=== PATIENT | male | born 1940 | race Caucasian/White ===

== ENCOUNTER 2018-06-06 07:29 | Outpatient (CLI) | payer MEDICARE, BC, SELFPAY ==
[2018-06-06 07:56] LABS: Abs Immature Grans 0.02 k/cumm (0.0-0.09); Absolute Basophil Count 0.02 k/cumm (0.0-0.2); Absolute Eosinophil Count 0.46 k/cumm (0.0-0.7); Absolute Lymphocyte Count 0.69 k/cumm (1.2-3.4); Absolute Monocyte Count 0.57 k/cumm (0.11-0.7); Basophils % 0.3; Eosinophils % 7.8; HCT 41.8 % (40.0-50.0); HGB 13.9 g/dL (13.5-17.5); Immature Grans % 0.3; Lymphocytes % 11.8; Mean Corp. HGB Concentration 33.3 g/dL (32.0-36.0); Mean Corpuscular Hemoglobin 30.6 pg (27.0-33.0); Mean Corpuscular Volume 92.1 fL (80-95); Mean Platelet Volume 10.3 fL (8.0-11.0); Monocytes % 9.7; Neutrophils % 70.1; Platelet Count 196 x1000/uL (130-400); RBC 4.54 m/cumm (4.50-6.00); RBC Distribution Width 13.5 % (11.8-14.1); White Blood Cell Count 5.86 k/cumm (4.4-10.8)
[2018-06-06 08:10] LABS: ALT 22 U/L (12-78); AST 19 U/L (15-37); Albumin 3.5 g/dL (3.4-5.0); Alkaline Phosphatase 120 U/L (46-116); Anion Gap 7.2 mmol/L (3-11); BUN 23 mg/dL (7-18); Bilirubin, Total 0.5 mg/dL (0.2-1.0); CO2 28.8 mmol/L (21.0-32.0); CREATININE 1.47 mg/dL (0.70-1.30); Calcium 8.7 mg/dL (8.5-10.1); Chloride 104 mmol/L (98-107); Glucose 99 mg/dL (70-100); Potassium 4.9 mmol/L (3.5-5.1); Sodium 140 mmol/L (136-145); T4 8.1 ug/dL (4.5-12.5); TSH 7.15 uIU/mL (0.358-3.74)
== END 2018-06-06 07:30 ==
PROVIDERS: Visit Provider Internal Medicine Medical Oncology
DX: C34.11 Malignant neoplasm of upper lobe, right bronchus or lung (principal); E03.2 Hypothyroidism due to medicaments and other exogenous substances
CPT/HCPCS: 36415; 80053; 84436; 84443; 85025

== ENCOUNTER 2018-06-20 08:00 | Outpatient (CLI) | payer MEDICARE, BC, SELFPAY ==
[2018-06-20 08:32] LABS: Abs Immature Grans 0.02 k/cumm (0.0-0.09); Absolute Basophil Count 0.02 k/cumm (0.0-0.2); Absolute Eosinophil Count 0.47 k/cumm (0.0-0.7); Absolute Lymphocyte Count 0.54 k/cumm (1.2-3.4); Absolute Monocyte Count 0.55 k/cumm (0.11-0.7); Absolute Neutrophil Count 4.02 k/cumm (1.2-6.7); Basophils % 0.4; Eosinophils % 8.4; HCT 40.1 % (40.0-50.0); HGB 13.2 g/dL (13.5-17.5); Immature Grans % 0.4; Lymphocytes % 9.6; Mean Corp. HGB Concentration 32.9 g/dL (32.0-36.0); Mean Corpuscular Hemoglobin 30.3 pg (27.0-33.0); Mean Corpuscular Volume 92.2 fL (80-95); Mean Platelet Volume 9.7 fL (8.0-11.0); Monocytes % 9.8; Neutrophils % 71.4; Platelet Count 184 x1000/uL (130-400); RBC 4.35 m/cumm (4.50-6.00); RBC Distribution Width 13.2 % (11.8-14.1); White Blood Cell Count 5.62 k/cumm (4.4-10.8)
[2018-06-20 08:52] LABS: ALT 20 U/L (12-78); AST 16 U/L (15-37); Albumin 3.3 g/dL (3.4-5.0); Alkaline Phosphatase 117 U/L (46-116); Anion Gap 8.5 mmol/L (3-11); BUN 26 mg/dL (7-18); Bilirubin, Total 0.6 mg/dL (0.2-1.0); CO2 27.5 mmol/L (21.0-32.0); CREATININE 1.34 mg/dL (0.70-1.30); Calcium 8.5 mg/dL (8.5-10.1); Chloride 106 mmol/L (98-107); Estimated GFR 51.97 (mL/min/1.73m2); Glucose 93 mg/dL (70-100); Potassium 4.2 mmol/L (3.5-5.1); Sodium 142 mmol/L (136-145); T4 8.5 ug/dL (4.5-12.5); TSH 4.09 uIU/mL (0.358-3.74); Total Protein 6.8 g/dL (6.4-8.2)
== END 2018-06-20 08:01 ==
PROVIDERS: Visit Provider Internal Medicine Medical Oncology
DX: C34.11 Malignant neoplasm of upper lobe, right bronchus or lung (principal); E03.2 Hypothyroidism due to medicaments and other exogenous substances
CPT/HCPCS: 36415; 80053; 84436; 84443; 85025

== ENCOUNTER 2018-07-05 07:29 | Outpatient (CLI) | payer MEDICARE, BC, SELFPAY ==
[2018-07-05 08:07] LABS: Abs Immature Grans 0.02 k/cumm (0.0-0.09); Absolute Basophil Count 0.03 k/cumm (0.0-0.2); Absolute Lymphocyte Count 0.55 k/cumm (1.2-3.4); Absolute Neutrophil Count 4.51 k/cumm (1.2-6.7); Basophils % 0.5; Eosinophils % 8.2; HGB 12.5 g/dL (13.5-17.5); Immature Grans % 0.3; Mean Corp. HGB Concentration 32.9 g/dL (32.0-36.0); Mean Corpuscular Volume 91.1 fL (80-95); Mean Platelet Volume 10.1 fL (8.0-11.0); Monocytes % 8.2; Neutrophils % 73.8; Platelet Count 236 x1000/uL (130-400); RBC 4.17 m/cumm (4.50-6.00); RBC Distribution Width 12.6 % (11.8-14.1); White Blood Cell Count 6.11 k/cumm (4.4-10.8)
[2018-07-05 08:29] LABS: ALT 19 U/L (12-78); AST 16 U/L (15-37); Alkaline Phosphatase 106 U/L (46-116); Anion Gap 8.3 mmol/L (3-11); BUN 23 mg/dL (7-18); Bilirubin, Total 0.6 mg/dL (0.2-1.0); CO2 27.7 mmol/L (21.0-32.0); CREATININE 1.39 mg/dL (0.70-1.30); Calcium 8.6 mg/dL (8.5-10.1); Chloride 102 mmol/L (98-107); Estimated GFR 49.68 (mL/min/1.73m2); Glucose 99 mg/dL (70-100); Sodium 138 mmol/L (136-145); T4 8.2 ug/dL (4.5-12.5); TSH 3.72 uIU/mL (0.358-3.74); Total Protein 6.4 g/dL (6.4-8.2)
== END 2018-07-05 07:49 ==
PROVIDERS: Visit Provider Internal Medicine Medical Oncology
DX: C34.11 Malignant neoplasm of upper lobe, right bronchus or lung (principal); E03.2 Hypothyroidism due to medicaments and other exogenous substances
CPT/HCPCS: 36415; 80053; 84436; 84443; 85025

== ENCOUNTER 2019-03-02 12:33 | Outpatient (CLI) | payer MEDICARE, BC, SELFPAY ==
[2019-03-02 12:53] LABS: Abs Immature Grans 0.02 k/cumm (0.0-0.09); Absolute Eosinophil Count 0.01 k/cumm (0.0-0.7); Absolute Lymphocyte Count 0.29 k/cumm (1.2-3.4); Absolute Monocyte Count 0.18 k/cumm (0.11-0.7); Eosinophils % 0.2; HCT 41.2 % (40.0-50.0); HGB 13.2 g/dL (13.5-17.5); Immature Grans % 0.3; Lymphocytes % 4.6; Mean Corpuscular Hemoglobin 29.9 pg (27.0-33.0); Mean Corpuscular Volume 93.4 fL (80-95); Mean Platelet Volume 9.2 fL (8.0-11.0); Monocytes % 2.9; Platelet Count 187 x1000/uL (130-400); RBC 4.41 m/cumm (4.50-6.00); RBC Distribution Width 14.5 % (11.8-14.1)
[2019-03-02 13:21] LABS: ALT 18 U/L (12-78); AST 9 U/L (15-37); Albumin 3.2 g/dL (3.4-5.0); Alkaline Phosphatase 82 U/L (46-116); Anion Gap 4.5 mmol/L (3-11); BUN 18 mg/dL (7-18); Bilirubin, Total 0.5 mg/dL (0.2-1.0); CO2 32.5 mmol/L (21.0-32.0); CREATININE 1.28 mg/dL (0.70-1.30); Calcium 8.8 mg/dL (8.5-10.1); Chloride 104 mmol/L (98-107); Estimated GFR 54.64 (mL/min/1.73m2); Glucose 119 mg/dL (70-100); Potassium 3.7 mmol/L (3.5-5.1); Sodium 141 mmol/L (136-145); TSH 1.92 uIU/mL (0.358-3.74); Total Protein 6.3 g/dL (6.4-8.2)
== END 2019-03-02 12:53 ==
PROVIDERS: Visit Provider Internal Medicine Hematology & Oncology
DX: C34.11 Malignant neoplasm of upper lobe, right bronchus or lung (principal); E03.2 Hypothyroidism due to medicaments and other exogenous substances
CPT/HCPCS: 36415; 80053; 84436; 84443; 85025

== ENCOUNTER 2019-03-15 10:20 | Outpatient (CLI) | payer MEDICARE, BC, SELFPAY ==
--- NOTE | 2019-03-15 10:17 | DI.RAD_ITS ---
SYMPTOM/DIAGNOSIS: RT SHOULDER PAIN RIGHT SHOULDER: Two views were obtained. There are prominent hypertrophic degenerative changes of acromioclavicular and glenohumeral joints. No other focal bony abnormality is seen.
== END 2019-03-15 10:40 ==
PROVIDERS: Visit Provider Orthopaedic Surgery
DX: M25.511 Pain in right shoulder (principal); M19.011 Primary osteoarthritis, right shoulder; M75.101 Unspecified rotator cuff tear or rupture of right shoulder, not specified as traumatic; G89.29 Other chronic pain
CPT/HCPCS: 20610; 99214; 73030; J1040

== ENCOUNTER 2019-03-17 13:00 | Outpatient (CLI) | payer MEDICARE, BC, SELFPAY ==
[2019-03-17 14:14] LABS: Abs Immature Grans 0.05 k/cumm (0.0-0.09); Absolute Basophil Count 0.01 k/cumm (0.0-0.2); Absolute Lymphocyte Count 0.34 k/cumm (1.2-3.4); Absolute Monocyte Count 0.41 k/cumm (0.11-0.7); Absolute Neutrophil Count 7.81 k/cumm (1.2-6.7); Basophils % 0.1; HCT 43.4 % (40.0-50.0); HGB 14.2 g/dL (13.5-17.5); Immature Grans % 0.6; Lymphocytes % 3.9; Mean Corp. HGB Concentration 32.7 g/dL (32.0-36.0); Mean Corpuscular Hemoglobin 30.4 pg (27.0-33.0); Mean Corpuscular Volume 92.9 fL (80-95); Mean Platelet Volume 9.5 fL (8.0-11.0); Monocytes % 4.8; Neutrophils % 90.6; Platelet Count 191 x1000/uL (130-400); RBC 4.67 m/cumm (4.50-6.00); White Blood Cell Count 8.62 k/cumm (4.4-10.8)
[2019-03-17 14:34] LABS: ALT 18 U/L (12-78); AST 9 U/L (15-37); Albumin 3.3 g/dL (3.4-5.0); Alkaline Phosphatase 91 U/L (46-116); BUN 28 mg/dL (7-18); Bilirubin, Total 0.6 mg/dL (0.2-1.0); CREATININE 1.35 mg/dL (0.70-1.30); Calcium 9.2 mg/dL (8.5-10.1); Chloride 100 mmol/L (98-107); Estimated GFR 51.38 (mL/min/1.73m2); Glucose 121 mg/dL (70-100); Potassium 5.1 mmol/L (3.5-5.1); Sodium 136 mmol/L (136-145); T4 7.3 ug/dL (4.5-12.5); TSH 1.46 uIU/mL (0.358-3.74); Total Protein 6.7 g/dL (6.4-8.2)
== END 2019-03-17 13:20 ==
PROVIDERS: Visit Provider Internal Medicine Hematology & Oncology
DX: C34.11 Malignant neoplasm of upper lobe, right bronchus or lung (principal); E03.9 Hypothyroidism, unspecified
CPT/HCPCS: 36415; 80053; 84436; 84443; 85025

== ENCOUNTER 2019-03-30 11:33 | Outpatient (CLI) | payer MEDICARE, BC, SELFPAY ==
[2019-03-30 12:03] LABS: Abs Immature Grans 0.03 k/cumm (0.0-0.09); Absolute Basophil Count 0.03 k/cumm (0.0-0.2); Absolute Lymphocyte Count 0.71 k/cumm (1.2-3.4); Absolute Monocyte Count 0.75 k/cumm (0.11-0.7); Absolute Neutrophil Count 5.23 k/cumm (1.2-6.7); Basophils % 0.4; Eosinophils % 1.5; HCT 41.7 % (40.0-50.0); HGB 13.5 g/dL (13.5-17.5); Immature Grans % 0.4; Lymphocytes % 10.4; Mean Corp. HGB Concentration 32.4 g/dL (32.0-36.0); Mean Corpuscular Hemoglobin 30.1 pg (27.0-33.0); Mean Corpuscular Volume 92.9 fL (80-95); Mean Platelet Volume 9.9 fL (8.0-11.0); Monocytes % 10.9; Neutrophils % 76.4; Platelet Count 188 x1000/uL (130-400); RBC 4.49 m/cumm (4.50-6.00); RBC Distribution Width 13.9 % (11.8-14.1); White Blood Cell Count 6.85 k/cumm (4.4-10.8)
[2019-03-30 12:24] LABS: ALT 17 U/L (12-78); AST 14 U/L (15-37); Alkaline Phosphatase 92 U/L (46-116); Anion Gap 3.2 mmol/L (3-11); BUN 27 mg/dL (7-18); Bilirubin, Total 0.5 mg/dL (0.2-1.0); CO2 31.8 mmol/L (21.0-32.0); CREATININE 1.26 mg/dL (0.70-1.30); Calcium 8.8 mg/dL (8.5-10.1); Chloride 104 mmol/L (98-107); Estimated GFR 55.64 (mL/min/1.73m2); Glucose 97 mg/dL (70-100); Potassium 3.8 mmol/L (3.5-5.1); Sodium 139 mmol/L (136-145); T4 6.5 ug/dL (4.5-12.5); TSH 2.38 uIU/mL (0.358-3.74); Total Protein 6.4 g/dL (6.4-8.2)
== END 2019-03-30 11:53 ==
PROVIDERS: Visit Provider Internal Medicine Hematology & Oncology
DX: C34.11 Malignant neoplasm of upper lobe, right bronchus or lung (principal); E03.2 Hypothyroidism due to medicaments and other exogenous substances
CPT/HCPCS: 36415; 80053; 84436; 84443; 85025

== ENCOUNTER 2019-04-13 09:53 | Outpatient (CLI) | payer MEDICARE, BC, SELFPAY ==
[2019-04-13 10:34] LABS: Abs Immature Grans 0.04 k/cumm (0.0-0.09); Absolute Basophil Count 0.01 k/cumm (0.0-0.2); Absolute Eosinophil Count 0.06 k/cumm (0.0-0.7); Absolute Lymphocyte Count 0.28 k/cumm (1.2-3.4); Absolute Monocyte Count 0.36 k/cumm (0.11-0.7); Absolute Neutrophil Count 6.91 k/cumm (1.2-6.7); Basophils % 0.1; Eosinophils % 0.8; HCT 40.2 % (40.0-50.0); HGB 13.1 g/dL (13.5-17.5); Immature Grans % 0.5; Lymphocytes % 3.7; Mean Corp. HGB Concentration 32.6 g/dL (32.0-36.0); Mean Corpuscular Hemoglobin 29.6 pg (27.0-33.0); Mean Platelet Volume 9.5 fL (8.0-11.0); Monocytes % 4.7; Neutrophils % 90.2; Platelet Count 210 x1000/uL (130-400); RBC 4.42 m/cumm (4.50-6.00); RBC Distribution Width 13.6 % (11.8-14.1); White Blood Cell Count 7.66 k/cumm (4.4-10.8)
[2019-04-13 11:01] LABS: ALT 22 U/L (12-78); AST 16 U/L (15-37); Albumin 3.1 g/dL (3.4-5.0); Alkaline Phosphatase 91 U/L (46-116); Anion Gap 8.1 mmol/L (3-11); BUN 25 mg/dL (7-18); Bilirubin, Total 0.5 mg/dL (0.2-1.0); CO2 27.9 mmol/L (21.0-32.0); CREATININE 1.31 mg/dL (0.70-1.30); Calcium 8.7 mg/dL (8.5-10.1); Chloride 105 mmol/L (98-107); Glucose 107 mg/dL (70-100); Sodium 141 mmol/L (136-145); T4 5.9 ug/dL (4.5-12.5); TSH 2.36 uIU/mL (0.358-3.74); Total Protein 6.2 g/dL (6.4-8.2)
== END 2019-04-13 10:13 ==
PROVIDERS: Visit Provider Internal Medicine Hematology & Oncology
DX: C34.11 Malignant neoplasm of upper lobe, right bronchus or lung (principal); E03.2 Hypothyroidism due to medicaments and other exogenous substances
CPT/HCPCS: 36415; 80053; 84436; 84443; 85025

== ENCOUNTER 2019-04-27 09:22 | Outpatient (CLI) | payer MEDICARE, BC, SELFPAY ==
[2019-04-27 09:45] LABS: Abs Immature Grans 0.04 k/cumm (0.0-0.09); Absolute Basophil Count 0.02 k/cumm (0.0-0.2); Absolute Eosinophil Count 0.11 k/cumm (0.0-0.7); Absolute Lymphocyte Count 0.35 k/cumm (1.2-3.4); Absolute Monocyte Count 0.27 k/cumm (0.11-0.7); Absolute Neutrophil Count 7.26 k/cumm (1.2-6.7); Basophils % 0.2; Eosinophils % 1.4; HCT 42.4 % (40.0-50.0); HGB 13.7 g/dL (13.5-17.5); Immature Grans % 0.5; Lymphocytes % 4.3; Mean Corp. HGB Concentration 32.3 g/dL (32.0-36.0); Mean Corpuscular Hemoglobin 29.7 pg (27.0-33.0); Mean Platelet Volume 9.7 fL (8.0-11.0); Monocytes % 3.4; Neutrophils % 90.2; Platelet Count 182 x1000/uL (130-400); RBC 4.61 m/cumm (4.50-6.00); RBC Distribution Width 14.3 % (11.8-14.1); White Blood Cell Count 8.05 k/cumm (4.4-10.8)
[2019-04-27 10:08] LABS: ALT 20 U/L (12-78); AST 12 U/L (15-37); Albumin 3.2 g/dL (3.4-5.0); Alkaline Phosphatase 87 U/L (46-116); Anion Gap 7.9 mmol/L (3-11); BUN 26 mg/dL (7-18); Bilirubin, Total 0.8 mg/dL (0.2-1.0); CO2 29.1 mmol/L (21.0-32.0); CREATININE 1.26 mg/dL (0.70-1.30); Calcium 8.8 mg/dL (8.5-10.1); Chloride 104 mmol/L (98-107); Estimated GFR 55.64 (mL/min/1.73m2); Glucose 108 mg/dL (70-100); Potassium 3.5 mmol/L (3.5-5.1); Sodium 141 mmol/L (136-145); T4 6.7 ug/dL (4.5-12.5); TSH 3.32 uIU/mL (0.358-3.74); Total Protein 6.6 g/dL (6.4-8.2)
== END 2019-04-27 09:42 ==
PROVIDERS: Visit Provider Internal Medicine Hematology & Oncology
DX: C34.11 Malignant neoplasm of upper lobe, right bronchus or lung (principal); E03.2 Hypothyroidism due to medicaments and other exogenous substances
CPT/HCPCS: 36415; 80053; 84436; 84443; 85025

== ENCOUNTER 2019-05-11 09:13 | Outpatient (CLI) | payer MEDICARE, BC, SELFPAY ==
[2019-05-11 09:54] LABS: Absolute Neutrophil Count 5.15 k/cumm (1.2-6.7); Basophils % 0.5; Eosinophils % 2.5; HGB 12.4 g/dL (13.5-17.5); Immature Grans % 0.5; Lymphocytes % 6.7; Mean Corp. HGB Concentration 31.8 g/dL (32.0-36.0); Mean Corpuscular Hemoglobin 29.3 pg (27.0-33.0); Mean Corpuscular Volume 92.2 fL (80-95); Mean Platelet Volume 9.7 fL (8.0-11.0); Monocytes % 5.1; Neutrophils % 84.7; Platelet Count 283 x1000/uL (130-400); RBC 4.23 m/cumm (4.50-6.00); RBC Distribution Width 13.6 % (11.8-14.1); White Blood Cell Count 6.08 k/cumm (4.4-10.8)
[2019-05-11 09:55] LABS: Abs Immature Grans 0.03 k/cumm (0.0-0.09); Absolute Basophil Count 0.03 k/cumm (0.0-0.2); Absolute Eosinophil Count 0.15 k/cumm (0.0-0.7); Absolute Lymphocyte Count 0.41 k/cumm (1.2-3.4); Absolute Monocyte Count 0.31 k/cumm (0.11-0.7)
[2019-05-11 10:19] LABS: ALT 17 U/L (12-78); AST 13 U/L (15-37); Albumin 2.9 g/dL (3.4-5.0); Alkaline Phosphatase 83 U/L (46-116); Anion Gap 9.4 mmol/L (3-11); BUN 19 mg/dL (7-18); Bilirubin, Total 0.3 mg/dL (0.2-1.0); CO2 27.6 mmol/L (21.0-32.0); CREATININE 1.32 mg/dL (0.70-1.30); Calcium 8.5 mg/dL (8.5-10.1); Chloride 105 mmol/L (98-107); Estimated GFR 52.73 (mL/min/1.73m2); Glucose 104 mg/dL (70-100); Potassium 3.7 mmol/L (3.5-5.1); Sodium 142 mmol/L (136-145); TSH 2.24 uIU/mL (0.358-3.74)
== END 2019-05-11 09:33 ==
PROVIDERS: PCP Family Medicine; Visit Provider Internal Medicine Hematology & Oncology
DX: E03.2 Hypothyroidism due to medicaments and other exogenous substances (principal); C34.11 Malignant neoplasm of upper lobe, right bronchus or lung
CPT/HCPCS: 36415; 80053; 84436; 84443; 85025

== ENCOUNTER 2019-05-25 09:03 | Outpatient (CLI) | payer MEDICARE, BC, SELFPAY ==
[2019-05-25 09:49] LABS: Abs Immature Grans 0.02 k/cumm (0.0-0.09); Absolute Basophil Count 0.05 k/cumm (0.0-0.2); Absolute Eosinophil Count 0.09 k/cumm (0.0-0.7); Absolute Lymphocyte Count 0.59 k/cumm (1.2-3.4); Absolute Monocyte Count 0.77 k/cumm (0.11-0.7); Absolute Neutrophil Count 6.25 k/cumm (1.2-6.7); Basophils % 0.6; Eosinophils % 1.2; HCT 42.2 % (40.0-50.0); HGB 13.4 g/dL (13.5-17.5); Immature Grans % 0.3; Lymphocytes % 7.6; Mean Corp. HGB Concentration 31.8 g/dL (32.0-36.0); Mean Corpuscular Hemoglobin 28.9 pg (27.0-33.0); Mean Corpuscular Volume 91.1 fL (80-95); Mean Platelet Volume 9.9 fL (8.0-11.0); Monocytes % 9.9; Neutrophils % 80.4; Platelet Count 196 x1000/uL (130-400); RBC 4.63 m/cumm (4.50-6.00); RBC Distribution Width 14.3 % (11.8-14.1); White Blood Cell Count 7.77 k/cumm (4.4-10.8)
[2019-05-25 10:01] LABS: ALT 19 U/L (12-78); AST 15 U/L (15-37); Albumin 3.2 g/dL (3.4-5.0); Alkaline Phosphatase 84 U/L (46-116); Anion Gap 8.7 mmol/L (3-11); BUN 20 mg/dL (7-18); Bilirubin, Total 0.5 mg/dL (0.2-1.0); CO2 27.3 mmol/L (21.0-32.0); CREATININE 1.21 mg/dL (0.70-1.30); Calcium 8.6 mg/dL (8.5-10.1); Chloride 106 mmol/L (98-107); Glucose 95 mg/dL (70-100); Potassium 3.3 mmol/L (3.5-5.1); Sodium 142 mmol/L (136-145); T4 6.1 ug/dL (4.5-12.5); TSH 3.72 uIU/mL (0.36-3.74); Total Protein 6.2 g/dL (6.4-8.2)
== END 2019-05-25 09:23 ==
PROVIDERS: PCP Family Medicine; Visit Provider Internal Medicine Hematology & Oncology
DX: E03.2 Hypothyroidism due to medicaments and other exogenous substances (principal); C34.11 Malignant neoplasm of upper lobe, right bronchus or lung
CPT/HCPCS: 36415; 80053; 84436; 84443; 85025

== ENCOUNTER 2019-06-22 08:55 | Outpatient (CLI) | payer MEDICARE, BC, SELFPAY ==
[2019-06-22 09:26] LABS: Abs Immature Grans 0.04 k/cumm (0.0-0.09); Absolute Basophil Count 0.01 k/cumm (0.0-0.2); Absolute Eosinophil Count 0.05 k/cumm (0.0-0.7); Absolute Lymphocyte Count 1.03 k/cumm (1.2-3.4); Absolute Monocyte Count 0.44 k/cumm (0.11-0.7); Absolute Neutrophil Count 5.72 k/cumm (1.2-6.7); Basophils % 0.1; Eosinophils % 0.7; HCT 44.8 % (40.0-50.0); HGB 14.5 g/dL (13.5-17.5); Immature Grans % 0.5; Lymphocytes % 14.1; Mean Corp. HGB Concentration 32.4 g/dL (32.0-36.0); Mean Corpuscular Hemoglobin 29.8 pg (27.0-33.0); Mean Corpuscular Volume 92.2 fL (80-95); Mean Platelet Volume 9.9 fL (8.0-11.0); Neutrophils % 78.6; Platelet Count 181 x1000/uL (130-400); RBC 4.86 m/cumm (4.50-6.00); RBC Distribution Width 14.9 % (11.8-14.1); White Blood Cell Count 7.29 k/cumm (4.4-10.8)
[2019-06-22 09:37] LABS: ALT 26 U/L (12-78); AST 8 U/L (15-37); Albumin 3.5 g/dL (3.4-5.0); Alkaline Phosphatase 71 U/L (46-116); BUN 25 mg/dL (7-18); Bilirubin, Total 0.6 mg/dL (0.2-1.0); Chloride 104 mmol/L (98-107); Estimated GFR 53.67 (mL/min/1.73m2); Glucose 94 mg/dL (70-100); Potassium 3.3 mmol/L (3.5-5.1); Sodium 143 mmol/L (136-145); TSH 2.45 uIU/mL (0.36-3.74); Total Protein 6.4 g/dL (6.4-8.2)
[2019-06-22 10:07] LABS: T4 6.9 ug/dL (4.5-12.5)
== END 2019-06-22 09:15 ==
PROVIDERS: PCP Family Medicine; Visit Provider Internal Medicine Hematology & Oncology
DX: C34.91 Malignant neoplasm of unspecified part of right bronchus or lung (principal); E03.2 Hypothyroidism due to medicaments and other exogenous substances
CPT/HCPCS: 36415; 80053; 84436; 84443; 85025

== ENCOUNTER 2019-08-03 10:11 | Outpatient (CLI) | payer MEDICARE, BC, SELFPAY ==
[2019-08-03 11:11] LABS: Abs Immature Grans 0.04 k/cumm (0.0-0.09); Absolute Basophil Count 0.02 k/cumm (0.0-0.2); Absolute Eosinophil Count 0.06 k/cumm (0.0-0.7); Absolute Lymphocyte Count 0.54 k/cumm (1.2-3.4); Absolute Monocyte Count 0.41 k/cumm (0.11-0.7); Absolute Neutrophil Count 6.98 k/cumm (1.2-6.7); Basophils % 0.2; Eosinophils % 0.7; HCT 43.3 % (40.0-50.0); HGB 14.3 g/dL (13.5-17.5); Immature Grans % 0.5; Lymphocytes % 6.7; Mean Corpuscular Hemoglobin 30.2 pg (27.0-33.0); Mean Corpuscular Volume 91.5 fL (80-95); Mean Platelet Volume 9.6 fL (8.0-11.0); Monocytes % 5.1; Neutrophils % 86.8; Platelet Count 201 x1000/uL (130-400); RBC 4.73 m/cumm (4.50-6.00); RBC Distribution Width 14.3 % (11.8-14.1); White Blood Cell Count 8.05 k/cumm (4.4-10.8)
[2019-08-03 11:29] LABS: ALT 22 U/L (16-63); AST 12 U/L (15-37); Albumin 3.3 g/dL (3.4-5.0); Alkaline Phosphatase 76 U/L (46-116); Anion Gap 6.1 mmol/L (3-11); BUN 19 mg/dL (7-18); Bilirubin, Total 0.7 mg/dL (0.2-1.0); CO2 32.9 mmol/L (21.0-32.0); CREATININE 1.16 mg/dL (0.70-1.30); Calcium 8.7 mg/dL (8.5-10.1); Chloride 104 mmol/L (98-107); Glucose 109 mg/dL (70-100); Sodium 143 mmol/L (136-145); T4 8.4 ug/dL (4.5-12.5); TSH 2.35 uIU/mL (0.36-3.74); Total Protein 6.2 g/dL (6.4-8.2)
== END 2019-08-03 10:31 ==
PROVIDERS: PCP Family Medicine; Visit Provider Internal Medicine Hematology & Oncology
DX: C34.91 Malignant neoplasm of unspecified part of right bronchus or lung (principal); E03.2 Hypothyroidism due to medicaments and other exogenous substances
CPT/HCPCS: 36415; 80053; 84436; 84443; 85025

== ENCOUNTER 2019-09-07 10:26 | Outpatient (CLI) | payer MEDICARE, BC, SELFPAY ==
[2019-09-07 10:48] LABS: Abs Immature Grans 0.02 k/cumm (0.0-0.09); Absolute Basophil Count 0.03 k/cumm (0.0-0.2); Absolute Lymphocyte Count 0.49 k/cumm (1.2-3.4); Absolute Monocyte Count 0.52 k/cumm (0.11-0.7); Absolute Neutrophil Count 5.86 k/cumm (1.2-6.7); Basophils % 0.4; Eosinophils % 1.4; HCT 42.2 % (40.0-50.0); HGB 13.6 g/dL (13.5-17.5); Immature Grans % 0.3; Mean Corp. HGB Concentration 32.2 g/dL (32.0-36.0); Mean Corpuscular Hemoglobin 30.1 pg (27.0-33.0); Mean Corpuscular Volume 93.4 fL (80-95); Mean Platelet Volume 9.2 fL (8.0-11.0); Monocytes % 7.4; Neutrophils % 83.5; Platelet Count 199 x1000/uL (130-400); RBC 4.52 m/cumm (4.50-6.00); RBC Distribution Width 14.1 % (11.8-14.1); White Blood Cell Count 7.02 k/cumm (4.4-10.8)
[2019-09-07 11:10] LABS: ALT 31 U/L (16-63); AST 20 U/L (15-37); Albumin 3.2 g/dL (3.4-5.0); Alkaline Phosphatase 84 U/L (46-116); Anion Gap 4.8 mmol/L (3-11); BUN 24 mg/dL (7-18); Bilirubin, Total 0.6 mg/dL (0.2-1.0); CO2 31.2 mmol/L (21.0-32.0); CREATININE 1.28 mg/dL (0.70-1.30); Chloride 105 mmol/L (98-107); Glucose 103 mg/dL (70-100); Potassium 3.8 mmol/L (3.5-5.1); Sodium 141 mmol/L (136-145); T4 7.4 ug/dL (4.5-12.5); TSH 1.86 uIU/mL (0.36-3.74); Total Protein 6.2 g/dL (6.4-8.2)
== END 2019-09-07 10:46 ==
PROVIDERS: PCP Family Medicine; Visit Provider Internal Medicine Hematology & Oncology
DX: C34.91 Malignant neoplasm of unspecified part of right bronchus or lung (principal); E03.2 Hypothyroidism due to medicaments and other exogenous substances
CPT/HCPCS: 36415; 80053; 84436; 84443; 85025

== ENCOUNTER 2020-05-09 07:53 | Outpatient (CLI) | payer MEDICARE, BC, SELFPAY ==
[2020-05-09 08:13] LABS: Abs Immature Grans 0.01 k/cumm (0.0-0.09); Absolute Basophil Count 0.02 k/cumm (0.0-0.2); Absolute Eosinophil Count 0.24 k/cumm (0.0-0.7); Absolute Lymphocyte Count 0.68 k/cumm (1.2-3.4); Absolute Monocyte Count 0.42 k/cumm (0.11-0.7); Absolute Neutrophil Count 2.97 k/cumm (1.2-6.7); Basophils % 0.5; Eosinophils % 5.5; HCT 43.1 % (40.0-50.0); HGB 13.8 g/dL (13.5-17.5); Immature Grans % 0.2 %; Lymphocytes % 15.7; Mean Corpuscular Hemoglobin 27.9 pg (27.0-33.0); Mean Corpuscular Volume 87.2 fL (80-95); Mean Platelet Volume 9.9 fL (8.0-11.0); Monocytes % 9.7; Neutrophils % 68.4; Platelet Count 219 x1000/uL (130-400); RBC 4.94 m/cumm (4.50-6.00); RBC Distribution Width 14.9 % (11.8-14.1); White Blood Cell Count 4.34 k/cumm (4.4-10.8)
[2020-05-09 08:41] LABS: ALT 24 U/L (16-63); AST 23 U/L (15-37); Albumin 3.7 g/dL (3.4-5.0); Alkaline Phosphatase 175 U/L (46-116); Anion Gap 6.4 mmol/L (3-11); BUN 25 mg/dL (7-18); Bilirubin, Total 0.8 mg/dL (0.2-1.0); CO2 29.6 mmol/L (21.0-32.0); Calcium 9.1 mg/dL (8.5-10.1); Chloride 103 mmol/L (98-107); Estimated GFR 53.53 (mL/min/1.73m2); Glucose 107 mg/dL (74-106); Potassium 3.9 mmol/L (3.5-5.1); Sodium 139 mmol/L (136-145); Total Protein 7.1 g/dL (6.4-8.2)
== END 2020-05-09 08:13 ==
PROVIDERS: PCP Family Medicine; Visit Provider Internal Medicine Hematology & Oncology
DX: C34.11 Malignant neoplasm of upper lobe, right bronchus or lung (principal); E03.2 Hypothyroidism due to medicaments and other exogenous substances
CPT/HCPCS: 36415; 80053; 84443; 85025

== ENCOUNTER 2021-07-10 08:09 | Emergency (ER) | payer MEDICARE, BC, SELFPAY ==
[2021-07-10 08:25] VITALS: BP 128/71; PULSE 70; RESP 16; TEMP 36.7; O2SAT 98
--- NOTE | 2021-07-10 09:16 | ED.GENADUL_ITS ---
Discharge Plan Disposition Patient Disposition: HOME Condition: Stable Discharge Details Clinical Impression: Diarrhea, Abdominal pain Primary Care Provider: Brianne Sin ED Provider: Sol Velez Home Meds and New Rx's Prescriptions: Continued omeprazole 20 mg capsule,delayed release(DR/EC) 20 mg PO DAILY RF: 0 loperamide [Imodium A-D] 2 mg capsule 2 mg PO Q1-4H PRNRF: 0 metoprolol succinate 50 mg cap,sprinkle,ER 24hr dose pack 50 mg PO DAILY PRNRF: 0 amlodipine 10 mg tablet 10 mg PO DAILY RF: 0 gabapentin 300 mg capsule 300 mg PO PRNRF: 0 calcium carbonate-vitamin D2 600 mg calcium- 200 unit Tablet 1 tab PO DAILY RF: 0 Eliquis 5 mg tablet 5 mg PO BID RF: 0 Discharge Instructions Instructions: Acute Diarrhea (ED), Abdominal Pain (ED) Additional Instructions: Recommend CAT scan of your abdomen and pelvis, return of stool sample only if you have liquid stool, and the blood work, however you are feeling improved and have declined any additional interventions at this time Please return immediately should you develop recurrent pain, vomiting, diarrhea Medical Decision Making Patient appears well, vitals are stable, he is alert, oriented, of decisional capacity, given the patient's Eliquis Prescription and his age, recommendation for CT abdomen and pelvis and diagnostic labs, patient has declined this intervention He states that he has had enough radiation and prefers to avoid these tests I did discuss that we cannot exclude any more ominous pathology without doing any lab or imaging and patient consents to these risk I did supply him with a lab slip for C. difficile and stool sample returned and instructed him to return his stool if he develops diarrhea again He is instructed to return immediately should he develop return in pain Medical Records Medical records reviewed: Yes I reviewed the patient's medical records. HPI General Mode of arrival: ambulatory . Date/Time Provider Initiated Documentation: 07/10/21 08:42 . Limitations to Documentation: no limitations . Information obtained by: patient . HPI Narrative: . 81-year-old gentleman with history of lung cancer and DVTs presents with reports of 36 hours of abdominal discomfort diarrhea, and vomiting. He states that this is followed an upper respiratory infection for which she took 2 antibiotics for both azithromycin and cefdinir. This was 10 days ago. He states that 3 days ago he did have concerned that one of the sausages he had for breakfast was cold at that local dining facility and thinks he may have acquired food poisoning. He states that he was having cramping yesterday and nausea, vomiting, diarrhea, at 1:00 in the morning he awoke and he is completely pain-free without nausea or diarrhea. He denies any fever or chills. He denies any chest pain or shortness of breath. He denies any dizziness or weakness. He denies any blood in the stool. He is otherwise feeling at baseline in fact he feels much better than he has in several days reportedly. Related Data Home Medications Medication Instructions Recorded Confirmed loperamide 2 mg capsule 2 mg PO Q1-4H PRN 03/15/19 07/10/21 metoprolol succinate 50 mg capsule 50 mg PO DAILY PRN 03/15/19 07/10/21 sprinkle, ext. release 24 hr omeprazole 20 mg capsule,delayed 20 mg PO DAILY 03/15/19 07/10/21 release Eliquis 5 mg PO BID 07/10/21 07/10/21 amlodipine 10 mg PO DAILY 07/10/21 07/10/21 calcium carbonate-vitamin D2 1 tab PO DAILY 07/10/21 07/10/21 gabapentin 300 mg PO PRN 07/10/21 Allergies Allergy/AdvReac Type Severity Reaction Status Date / Time Penicillins Allergy Mild rash Verified 07/10/21 08:30 Sulfa (Sulfonamide AdvReac Mild rash Verified 07/10/21 08:30 Antibiotics) General Stated Complaint: Nausea/Vomit/Diar LUZ: 3 Review of Systems All systems reviewed & are unremarkable except as noted in HPI and below PFSH Social History Smoking/Tobacco Use Status: Former Tobacco Use Smoking risk assessment performed?: Yes Substance use type: does not use Do you feel safe at home: Yes Do you feel safe in your relationship?: Yes Exam Const General: cooperative Orientation: alert and oriented x3 HENMT Other: Uvula midline, moist mucous membrane Eyes Sclera: sclerae normal Resp Effort & Inspection: normal respiratory effort Cardio Rate: regular rate GI Inspection: normal to inspection Other: Abdomen completely nontender, no abdominal bruit or pulsatile mass, no CVA tenderness, no palpable masses, small easily reducible umbilical hernia Skin General skin exam: no rashes or lesions noted Neuro General: patient alert and patient oriented x3 Extrem Other: No peripheral edema, distal pulses intact Course Vital Signs Vital signs: Vital Signs Temperature 36.7 C 07/10/21 08:25 Pulse 70 07/10/21 08:25 Respiratory Rate 16 07/10/21 08:25 Blood Pressure 128/71 07/10/21 08:25 Pulse Oximetry 98 07/10/21 08:25 Temperature 36.7 C 07/10/21 08:25 Temperature Source Skin 07/10/21 08:25 Pulse 70 07/10/21 08:25 Respiratory Rate 16 07/10/21 08:25 Respiratory Effort Non-Labored 07/10/21 08:25 Blood Pressure 128/71 07/10/21 08:25 Blood Pressure Position Sitting 07/10/21 08:25 Pulse Oximetry 98 07/10/21 08:25 Oxygen Delivery Method Room Air 07/10/21 08:25 Oxygen Flow Rate 0 07/10/21 08:25 Pain Level 0 07/10/21 08:25
== END 2021-07-10 09:16 | disposition home or self-care (01) ==
PROVIDERS: Emergency Provider Physician Assistant; PCP Family Medicine
DX: R19.7 Diarrhea, unspecified (principal); R10.84 Generalized abdominal pain
CPT/HCPCS: 99282

== ENCOUNTER 2021-12-22 13:30 | Outpatient (CLI) | payer MEDICARE, BC, SELFPAY | END 2021-12-22 13:31 | disposition home or self-care (01) | LOC: PUVA 13:31 | PROVIDERS: PCP Family Medicine; Visit Provider Dermatology | DX: L29.8 Other pruritus (principal) | CPT/HCPCS: 96900 ==

== ENCOUNTER 2021-12-29 13:29 | Outpatient (CLI) | payer MEDICARE, BC, SELFPAY | END 2021-12-29 13:30 | disposition home or self-care (01) | LOC: PUVA 13:53 | PROVIDERS: PCP Family Medicine; Visit Provider Dermatology | DX: L29.8 Other pruritus (principal) | CPT/HCPCS: 96900 ==

== ENCOUNTER 2022-01-02 13:42 | Outpatient (CLI) | payer MEDICARE, BC, SELFPAY | END 2022-01-02 13:43 | disposition home or self-care (01) | LOC: PUVA 13:48 | PROVIDERS: PCP Family Medicine; Visit Provider Dermatology | DX: L29.8 Other pruritus (principal) | CPT/HCPCS: 96900 ==

== ENCOUNTER 2022-01-05 13:31 | Outpatient (CLI) | payer MEDICARE, BC, SELFPAY | END 2022-01-05 13:32 | disposition home or self-care (01) | LOC: PUVA 13:32 | PROVIDERS: PCP Family Medicine; Visit Provider Dermatology | DX: L29.8 Other pruritus (principal) | CPT/HCPCS: 96900 ==

== ENCOUNTER 2022-01-09 13:35 | Outpatient (CLI) | payer MEDICARE, BC, SELFPAY | END 2022-01-09 13:36 | disposition home or self-care (01) | LOC: PUVA 13:36 | PROVIDERS: PCP Family Medicine; Visit Provider Dermatology | DX: L29.8 Other pruritus (principal) | CPT/HCPCS: 96900 ==

== ENCOUNTER 2022-01-12 13:59 | Outpatient (CLI) | payer MEDICARE, BC, SELFPAY | END 2022-01-12 14:00 | disposition home or self-care (01) | LOC: PUVA 14:03 | PROVIDERS: PCP Family Medicine; Visit Provider Dermatology | DX: L29.8 Other pruritus (principal) | CPT/HCPCS: 96900 ==

== ENCOUNTER 2022-01-15 13:28 | Outpatient (CLI) | payer MEDICARE, BC, SELFPAY | END 2022-01-15 13:29 | disposition home or self-care (01) | LOC: PUVA 13:29 | PROVIDERS: PCP Family Medicine; Visit Provider Dermatology | DX: L29.8 Other pruritus (principal) | CPT/HCPCS: 96900 ==

== ENCOUNTER 2022-01-19 13:27 | Outpatient (CLI) | payer MEDICARE, BC, SELFPAY | END 2022-01-19 13:28 | disposition home or self-care (01) | LOC: PUVA 13:48 | PROVIDERS: PCP Family Medicine; Visit Provider Dermatology | DX: L29.8 Other pruritus (principal) | CPT/HCPCS: 96900 ==

== ENCOUNTER 2022-01-23 08:03 | Outpatient (CLI) | payer MEDICARE, BC, SELFPAY | END 2022-01-23 08:04 | disposition home or self-care (01) | LOC: PUVA 08:03 | PROVIDERS: PCP Family Medicine; Visit Provider Dermatology | DX: L29.8 Other pruritus (principal) | CPT/HCPCS: 96900 ==

== ENCOUNTER 2022-01-26 13:49 | Outpatient (CLI) | payer MEDICARE, BC, SELFPAY | END 2022-01-26 13:50 | disposition home or self-care (01) | LOC: PUVA 13:49 | PROVIDERS: PCP Family Medicine; Visit Provider Dermatology | DX: L29.8 Other pruritus (principal) | CPT/HCPCS: 96900 ==

== ENCOUNTER 2022-01-30 13:21 | Outpatient (CLI) | payer MEDICARE, BC, SELFPAY | END 2022-01-30 13:22 | disposition home or self-care (01) | LOC: PUVA 13:59 | PROVIDERS: PCP Family Medicine; Visit Provider Dermatology | DX: L29.8 Other pruritus (principal) | CPT/HCPCS: 96900 ==

== ENCOUNTER 2022-02-02 13:30 | Outpatient (CLI) | payer MEDICARE, BC, SELFPAY | END 2022-02-02 13:31 | disposition home or self-care (01) | LOC: PUVA 13:30 | PROVIDERS: PCP Family Medicine; Visit Provider Dermatology | DX: L29.8 Other pruritus (principal) | CPT/HCPCS: 96900 ==

== ENCOUNTER 2022-02-06 13:38 | Outpatient (CLI) | payer MEDICARE, BC, SELFPAY | END 2022-02-06 13:39 | disposition home or self-care (01) | LOC: PUVA 13:41 | PROVIDERS: PCP Family Medicine; Visit Provider Dermatology | DX: L29.8 Other pruritus (principal) | CPT/HCPCS: 96900 ==

== ENCOUNTER 2022-02-10 07:59 | Outpatient (CLI) | payer MEDICARE, BC, SELFPAY | END 2022-02-10 08:00 | disposition home or self-care (01) | LOC: PUVA 08:00 | PROVIDERS: PCP Family Medicine; Visit Provider Dermatology | DX: L29.8 Other pruritus (principal) | CPT/HCPCS: 96900 ==

== ENCOUNTER 2022-02-13 08:22 | Outpatient (CLI) | payer MEDICARE, BC, SELFPAY | END 2022-02-13 08:23 | disposition home or self-care (01) | LOC: PUVA 09:00 | PROVIDERS: PCP Family Medicine; Visit Provider Dermatology | DX: L29.8 Other pruritus (principal) | CPT/HCPCS: 96900 ==

== ENCOUNTER 2022-02-16 08:07 | Outpatient (CLI) | payer MEDICARE, BC, SELFPAY | END 2022-02-16 08:08 | disposition home or self-care (01) | LOC: PUVA 08:07 | PROVIDERS: PCP Family Medicine; Visit Provider Dermatology | DX: L29.8 Other pruritus (principal) | CPT/HCPCS: 96900 ==

== ENCOUNTER 2022-02-20 07:26 | Outpatient (CLI) | payer MEDICARE, BC, SELFPAY | END 2022-02-20 07:27 | disposition home or self-care (01) | LOC: PUVA 07:28 | PROVIDERS: PCP Family Medicine; Visit Provider Dermatology | DX: L29.8 Other pruritus (principal) | CPT/HCPCS: 96900 ==

== ENCOUNTER 2022-02-23 08:05 | Outpatient (CLI) | payer MEDICARE, BC, SELFPAY | END 2022-02-23 08:06 | disposition home or self-care (01) | LOC: PUVA 08:05 | PROVIDERS: PCP Family Medicine; Visit Provider Dermatology | DX: L29.8 Other pruritus (principal) | CPT/HCPCS: 96900 ==

== ENCOUNTER 2022-02-27 07:21 | Outpatient (CLI) | payer MEDICARE, BC, SELFPAY | END 2022-02-27 07:22 | disposition home or self-care (01) | PROVIDERS: PCP Family Medicine; Visit Provider Dermatology ==

== ENCOUNTER 2022-03-02 07:28 | Outpatient (CLI) | payer MEDICARE, BC, SELFPAY | END 2022-03-02 07:29 | disposition home or self-care (01) | LOC: PUVA 07:29 | PROVIDERS: PCP Family Medicine; Visit Provider Dermatology | DX: L29.8 Other pruritus (principal) | CPT/HCPCS: 96900 ==

== ENCOUNTER 2022-03-06 07:26 | Outpatient (CLI) | payer MEDICARE, BC, SELFPAY | END 2022-03-06 07:27 | disposition home or self-care (01) | LOC: PUVA 07:26 | PROVIDERS: PCP Family Medicine; Visit Provider Dermatology | DX: L29.8 Other pruritus (principal) | CPT/HCPCS: 96900 ==

== ENCOUNTER 2022-03-09 07:19 | Outpatient (CLI) | payer MEDICARE, BC, SELFPAY | END 2022-03-09 07:20 | disposition home or self-care (01) | LOC: PUVA 07:19 | PROVIDERS: PCP Family Medicine; Visit Provider Dermatology | DX: L29.8 Other pruritus (principal) | CPT/HCPCS: 96900 ==

== ENCOUNTER 2022-03-13 08:18 | Outpatient (CLI) | payer MEDICARE, BC, SELFPAY | END 2022-03-13 08:19 | disposition home or self-care (01) | LOC: PUVA 08:18 | PROVIDERS: PCP Family Medicine; Visit Provider Dermatology | DX: L29.8 Other pruritus (principal) | CPT/HCPCS: 96900 ==

== ENCOUNTER 2022-03-16 07:39 | Outpatient (CLI) | payer MEDICARE, BC, SELFPAY | END 2022-03-16 07:40 | disposition home or self-care (01) | LOC: PUVA 07:40 | PROVIDERS: PCP Family Medicine; Visit Provider Dermatology | DX: L29.8 Other pruritus (principal) | CPT/HCPCS: 96900 ==

== ENCOUNTER 2022-03-20 07:21 | Outpatient (CLI) | payer MEDICARE, BC, SELFPAY | END 2022-03-20 07:22 | disposition home or self-care (01) | LOC: PUVA 07:21 | PROVIDERS: PCP Family Medicine; Visit Provider Dermatology | DX: L29.8 Other pruritus (principal) | CPT/HCPCS: 96900 ==

== ENCOUNTER 2022-03-23 07:12 | Outpatient (CLI) | payer MEDICARE, BC, SELFPAY | END 2022-03-23 07:13 | disposition home or self-care (01) | LOC: PUVA 07:12 | PROVIDERS: PCP Family Medicine; Visit Provider Dermatology | DX: L29.8 Other pruritus (principal) | CPT/HCPCS: 96900 ==

== ENCOUNTER 2022-04-06 13:55 | Outpatient (CLI) | payer MEDICARE, BC, SELFPAY | END 2022-04-06 13:56 | LOC: PUVA 04-07 13:55 | PROVIDERS: PCP Family Medicine; Visit Provider Dermatology | DX: L29.8 Other pruritus (principal) | CPT/HCPCS: 96900 ==

== ENCOUNTER 2022-04-20 07:54 | Outpatient (CLI) | payer MEDICARE, BC, SELFPAY | END 2022-04-20 07:55 | disposition home or self-care (01) | LOC: PUVA 07:54 | PROVIDERS: PCP Family Medicine; Visit Provider Dermatology | DX: L29.8 Other pruritus (principal) | CPT/HCPCS: 96900 ==

== ENCOUNTER 2022-05-05 07:15 | Outpatient (CLI) | payer MEDICARE, BC, SELFPAY | END 2022-05-05 07:16 | disposition home or self-care (01) | LOC: PUVA 07:15 | PROVIDERS: PCP Family Medicine; Visit Provider Dermatology | DX: L29.8 Other pruritus (principal) | CPT/HCPCS: 96900 ==

== ENCOUNTER 2022-05-18 09:00 | Outpatient (CLI) | payer MEDICARE, BC, SELFPAY | END 2022-05-18 09:01 | disposition home or self-care (01) | LOC: PUVA 09:00 | PROVIDERS: PCP Family Medicine; Visit Provider Dermatology | DX: L29.8 Other pruritus (principal) | CPT/HCPCS: 96900 ==

== ENCOUNTER 2022-06-01 07:54 | Outpatient (CLI) | payer MEDICARE, BC, SELFPAY | END 2022-06-01 07:55 | disposition home or self-care (01) | LOC: PUVA 07:54 | PROVIDERS: PCP Family Medicine; Visit Provider Dermatology | DX: L29.8 Other pruritus (principal) | CPT/HCPCS: 96900 ==

== ENCOUNTER 2022-06-15 07:18 | Outpatient (CLI) | payer MEDICARE, BC, SELFPAY | END 2022-06-15 07:19 | disposition home or self-care (01) | LOC: PUVA 07:19 | PROVIDERS: PCP Family Medicine; Visit Provider Dermatology | DX: L29.8 Other pruritus (principal) | CPT/HCPCS: 96900 ==

== ENCOUNTER 2022-06-29 08:59 | Outpatient (CLI) | payer MEDICARE, BC, SELFPAY | END 2022-06-29 09:00 | disposition home or self-care (01) | LOC: PUVA 09:00 | PROVIDERS: PCP Family Medicine; Visit Provider Dermatology | DX: L29.8 Other pruritus (principal) | CPT/HCPCS: 96900 ==

== ENCOUNTER 2022-07-13 12:26 | Outpatient (CLI) | payer MEDICARE, BC, SELFPAY ==
--- OUTSIDE RECORDS SUMMARY | 2022-07-17 12:28 | XMS_ITS | Encounter Summary ---
:1940 Author Organization Department [facility] rs Address [address] [place] [id number] Support Name Relationship Address Phone BLAS CASTRO Unavailable [phone] [place] [address] BLAS CASTRO Unavailable [phone] [facility] [address] THEA CASTRO Unavailable [address] [place] [address] Insurance Providers: All historical and current Section Date Range: From patient's date of to the date document was created.This section includes the names of all active insurance providers for the patient. Insurance Type of Plan Start of End of Group Member Insurance Policy P atient's Provider Coverage Name Policy Policy Number ID Provider's Seo's Relationship Coverage Coverage Telephone Name to Policy Number Seo [place] PREFERRED ST[place] Jun 01, [id number] [phone] CHERIE PERN,A PATIENT (FEDERAL) PROVIDER MACY 2006 70 7 RNOLD ORGANIZAT FAMIL ION (PPO) Y 105 BCBS OF PREFERRED STAND Nov 01 [id number] [phone] HALPER N,A PATIENT MASS FEP PROVIDER MACY 2004 70 6 RNOLD ORGANIZAT FAMIL ION (PPO) Y BCBS OF DENTAL STAND Nov 01, DENTAL [id number] [phone] MATTHEW,A PATIENT MASS FEP INSURANCE MACY 2004 70 6 RNOLD DENTAL [place] PREFERRED STAND Nov 01, 104 [id number] [phone] CHERIE PERN,A PATIENT FEDERAL PROVIDER MACY 2020 70 4 RNOLD ORGANIZAT SELF ION (PPO) [place] PREFERRED ST[place] Nov 01, 105 [id number] [phone] CHERIE PERN,A PATIENT FEDERAL PROVIDER MACY 2005 70 4 RNOLD ORGANIZAT FAMIL ION (PPO) Y [place] PRESCRIPT FEP Nov 02, [id number] [phone] HALP GURJIT,A PATIENT ([id number]) ION 2011 0 70 7 RNOLD [place] PRESCRIPT CAREM Nov 01, [id number] [phone] HALP GURJIT,A PATIENT FEP BCBS ION ARK 2011 0 70 1 RNOLD FEPRX PLAN [place]-F PRESCRIPT BCBS Nov 01, [id number] [phone] QUIÑONES LPERN,A PATIENT EP BCBS ION FEP 2011 0 [id number] RNOLD PLAN MEDICARE MEDICARE PART Jun 01, PART B [id number] HALPER N,A PATIENT (WNR) (M) B 2006 [id number] 2 RNOLD MEDICARE MEDICARE PART Jun 01, PART A [id number] HALPER N,A PATIENT (WNR) (M) A 2006 [id number] 2 RNOLD MEDICARE MEDICARE PART Jun 01, PART B [id number] HALPER N,A PATIENT (WNR) (M) B 2006 [id number] 2 RNOLD MEDICARE MEDICARE PART Jun 01, PART A [id number] HALPER N,A PATIENT (WNR) (M) A 2006 [id number] RNOLD MEDICARE MEDICARE PART Jun 01, PART B [id number] HALPER N,A PATIENT (WNR) (M) B 2006 [id number] 00 RNOLD MEDICARE MEDICARE PART Jun 01, PART A [id number] HALPER N,A PATIENT (WNR) (M) A 2006 [id number] RNOLD MEDICARE MEDICARE PART Jun 01, PART B [id number] HALPER N,A PATIENT (WNR) (M) B 2006 [id number] RNOLD MEDICARE MEDICARE PART Jun 01, PART A [id number] HALPER N,A PATIENT (WNR) (M) A 2006 38A 2 RNOLD MEDICARE MEDICARE PART Jun 01, PART B [id number] HALPER N,A PATIENT (WNR) (M) B 2006 38A 2 RNOLD MEDICARE MEDICARE PART Jun 01, PART A [id number] Chetan DAVID PATIENT (WNR) (M) Chetan 2006 [id number] RNOLD Selected Encounter This section includes the information on record at [place] for the Encounter. Date/Time Encounter Type Encounter Description Reason Provider Source Aug 25, 2021 09:20 Outpatient Encounter EVENT (HISTORICAL) AM IHE Encounter Template Text not used by [place] Plan of Treatment: Future Appointments (+ 6 months) and Future Tests (+/- 45 days) The Plan of Treatment section includes future care activities for the patient from all [place] treatmentfacilities. This section includes future appointments and future orders which are active, pending orscheduled.Future Appointments This section includes appointments that were scheduled to occur 6 months from the date of the Encounter, up to a maximum of 20 appointments. The data comes from all [place] treatment facilities. Appointment Date/Time Appointment Type Appointment Facili ty Name Nov 28, 2021 10:30 AM AM[place]UL[place]ORY [place] [facility] Feb 09, 2022 09:30 AM [facility] [place] [facility] Feb 09, 2022 12:30 PM [facility] [place] [facility] Feb 09, 2022 02:30 PM [place] [facility]3] Feb 16, 2022 08:30 AM [facility] Feb 19, 2022 10:30 AM [facility] Feb 19, 2022 10:45 AM [facility] Feb 20, 2022 02:00 [facility]3] Lab Results: +/- 30 days of the encounter This section includes the Chemistry and Hematology Lab Results on record with [place] for the patient. Radiology Reports and Pathology Reports are provided separately, in subsequent sections.Lab Results This section contains the Chemistry/Hematology Results that were resulted 30 days before or 30 daysafter the date of the Encounter. Date/Time Source Result Type Result - Unit Interpretation Reference Range Comment Aug 05, 2021 09:09 AM [place] [facility]3] ALT(SGPT) Sp ecimen Type: PLASMA Comment: Tests performed on Fuzmo (405) [id number] Ordering Provid er: MERNA DOWD Report Released Date/Time: Feb 07, 2021 10:02 AM Reporting Lab: [place] [facility] [address] [facility] [address] Performing Lab: [place] [facility] [address] [facility] [address] ALT(SGPT) 15 7-52 Aug 05, 2021 09:09 AM [place] [facility] AST(SGOT) Sp ecimen Type: PLASMA Comment: Tests performed on Mena Exent (405) [id number] Ordering Provid er: MERNA DOWD Report Released Date/Time: Feb 07, 2021 10:02 AM Reporting Lab: [place] [facility] [address] [facility] [address] Performing Lab: [place] [facility] [address] [facility] [address] AST(SGOT) 19 5-34 Aug 05, 2021 [place] CREATININE WITH eGFR Specimen T ype: PLASMA 09:09 AM [facility] PANEL Comment: Tests performed on Fuzmo (405) SN:[id number] Ordering Provid er: MERNA DOWD Report Released Date/Time: Feb 07, 2021 10:02 AM Reporting Lab: [place] [facility] [address] [facility] [address] Performing Lab: [place] [facility] [address] [facility] [address] CREATININE 1.29 0.5-1.5 eGFR 54 L >60 Aug 05, 2021 09:09 [place] CBC NO DIFF Specimen Typ e: BLOOD AM [facility] No comment enter ed. Ordering Provid er: MERNA DOWD Report Released Date/Time: Feb 07, 2021 10:02 AM Reporting Lab: [place] [facility] [address] [facility] [address] Performing Lab: [place] [facility] [address] [facility] [address] WBC 5.0 4.5-11.0 RBC 5.18 4.23-5.66 HGB 15.2 12.8-17 HEMATOCRIT 48.7 39.2-50.4 MCV 94.0 82-99 MCH 29.3 26.2-32.6 MCHC 31.2 30.8-35.1 PLT 190 140-360 MPV 10.8 9.2-12.4 RDW 14.3 12.0-16.0 Social History: Smoking Status (Most current) and Tobacco Use (All prior to encounter date) This section includes the most current, and the historical, smoking and tobacco-related health factors from the [place] facility where the Encounter took place.Current Smoking Status This section includes the most current smoking, or tobacco-related health factor, from the [place] facility where the Encounter took place. Date/Time Current Smoking Status Comment Facility May 28, 2020 02:23 PM VA-TOBACCO QUIT 15 YRS OR MORE [place] [facility]3] Tobacco Use History This section includes a history of the smoking, or tobacco- related health factors, that were collected on or before the date of the Encounter. The data comes from the [place] facility where the Encounter took place. Date/Time Smoking Status/Tobacco Use Comment [facility] May 28, 2020 02:23 PM VA-TOBACCO QUIT 15 YRS OR [place] MORE [facility]3] Dec 29, 2018 03:56 PM VA-TOBACCO FOR[place] US[place] [facility]3] Dec 29, 2018 03:56 PM VA-TOBACCO QUIT 5 TO < 15 [place] YRS [facility]3] Sep 04, 2015 08:54 PM QUIT TOBACCO USE > 7 YEARS [place] [facility]3] Jul 31, 2005 02:57 PM H[place] OF [place]MOKING [place] quit 25 years ago. [facility]3] Jul 30, 2004 02:24 PM H[place] OF SMOKING [place] quit about 30 years ago. [facility] Jan 16, 2004 09:21 AM QUIT TOBACCO USE > 7 YEARS [place] 30 years ago [facility]3] Jun 20, 2003 01:47 PM H[place] OF SMOKING [place] quit 25 years ago. [facility]3] Jun 08, 2002 02:23 PM [place]MOKING [place] [facility]3] Jun 09, 2001 05:10 PM H[place] OF SMOKING [place] [facility]3]
--- OUTSIDE RECORDS SUMMARY | 2022-07-17 12:28 | XMS_ITS | Continuity of Care Document ---
:1940 Author Organization [facility] Care Team Providers Name Role Phone [facility] Unavailable Unavailable Problems Combined list of problems from Department of Defense and Veterans Affairs facilities. It does not include entries that were removed or entered in error. 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 , WHITE right upper lobe of 2015 Enter ed [place] lung (SNOMED CT By: [facility] [id number]) SAIMA WREN Comment: lungs Coagulation disorder Active Condition WHITE [place] [facility] Enlarged prostate Active Condition WH ITE (SNOMED CT 204491276) [place] [facility] Family History of Active Condition WH ITE Malignant Neoplasm of [place] Breast [facility] Health Maintenance Active Condition Jul 13, [address] By: [facility] SHEREE TIERNEY Comment: screening colonoscopy 03/2008; next due March 2018 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 [place] [facility] Sensorineural Hearing Active Condition WHITE Loss, Bilateral [place] [facility] Subjective tinnitus Active Condition WHITE [place] [facility] Hyperlipidemia Inactive Condition 04/09/2016 WHIT E [place] [facility] Hypertension * Inactive Condition 04/09/2016 WHIT E (ICD-9-CM 401.9) [place] [facility] Paroxysmal atrial Inactive Condition 02/12/2006 W HEIDI fibrillation [place] [facility] Superficial phlebitis Inactive Condition 2022 WHITE (SNOMED CT 8188943) [place] [facility] Tobacco Use Disorder, Inactive Condition 02/27/2014 Sep 12, WHITE Remission [address] By: VA[facility] SHEREE TIERNEY Comment: quit in 1976; ~30 pack/yr hx Diagnosis: ICD-10-CM Active Diagnosis WHITE Z71.[address] specified [facility] counselingwith Provider Comments: Other specified Counseling Diagnosis: ICD-10-CM Active Diagnosis LIZ[place] I48.91 Unspecified [facility]IC atrial fibrillationwith Provider Comments: Unspecified Atrial Fibrillation Diagnosis: ICD-10-CM Active Diagnosis WHITE H90.3 Sensorineural [place] hearing loss, [facility] bilateralwith Provider Comments: Sensorineural Hearing Loss, Bilateral Diagnosis: ICD-10-CM Active Diagnosis WHITE H34.8320 Trib rtnl R [place] vein occlusion, left [facility] eye, with macular edemawith Provider Comments: Tributary (branch) retinal vein occlusion, left eye, with macular edema Diagnosis: ICD-10-CM Active Diagnosis WHITE H34.8320 Trib rtnl [place] vein occlusion, left [facility] eye, with macular edemawith Provider Comments: [facility] rtnl vein occlusion, left eye, with macular edema Diagnosis: ICD-10-CM Active Diagnosis WHITE Z79.01 [facility] [place] (current) use of V[facility] anticoagulantswith Provider Comments: Long-term current use of anticoagulant ([facility] [id number]) Diagnosis: ICD-10-CM Active Diagnosis [place] Z23 Encounter for [place] CL[facility] immunizationwith Provider Comments: Encounter for immunization Diagnosis: ICD-10-CM Active Diagnosis WHITE Z46.1 Encounter for [place] fitting and [facility] adjustment of hearing aidwith Provider Comments: Encounter for Fitting and Adjustment of Hearing Aid Diagnosis: ICD-10-CM Active Diagnosis WHITE Z13.5 Encounter for [place] screening for eye and [facility] ear disorderswith Provider Comments: Encounter for Screening for Eye and Ear Disorders Medications Combined list of outpatient medications from Department of Defense and Veterans Affairs facilities. Medications provided include 1) outpatient medications from the last 15 months, and 2) patient-reported medications. Medication Details Route Status Patient Prescription Prescription Last Ordering Order Source Instructions Expires Number Dispense Provider Date Date AMLODIPINE TAKE ONE ORAL ACTIVE SHERYL CARCAMO [place] BESYLATE TABLET N D 2021 [facility] 5MG TAB BY MOUTH CLINIC EVERY DAY APIXABAN TAKE ONE ORAL ACTIVE 02/21/2023 [id number] CLEJANINA ,J 03/09/ WHITE 5MG TAB TABLET 2 ENEL L 2021 [place]TH [place] EVERY [facility] TWELVE HOURS TO HELP PREVENT BLOOD CLOTS (ANTICOA GULATION ) APIXABAN TAKE ONE ORAL DISCONT 02/08/2022 [id number] JACKJAMES N,E 02/17/ WHITE 5MG TAB TABLET INUED 2 MYAH 2020 [place] BY MOUTH B [place] EVERY [facility] TWELVE HOURS TO HELP PREVENT BLOOD CLOTS (ANTICOA GULATION ) LISINOPRIL TAKE ONE ORAL ACTIVE HIPES,SHERYL 06/23/ LIZETT 5MG TAB TABLET N D 2021 [facility] BY MOUTH CLINIC EVERY DAY SILDENAFIL TAKE ONE ORAL ACTIVE 07/23/2022 [id number] HIPES, SHERYL 04/24/ LIZ[place] CITRATE TABLET 2 N D 2021 [facility] 50MG TAB BY MOUTH CLINIC NEEDED FOR ERECTILE DYSFUNCT ION , MAX USE ONCE IN 24 HOUR PERIOD Allergies, Adverse Reactions, Alerts Combined list of allergies from Department of Defense and Veterans Affairs facilities. It does not include entries that were removed or entered in error. Substance Category Reaction Severity Reaction Status Date Comments S ource type Reported INFLUENZA Propensity Urticaria MILD Propensity active WHITE to adverse , Fever to adverse 4 RI JUSTUS reactions reactions [place] to drug to drug [facility] (finding) PENICILLIN Propensity HIVES Propensity active WHITE to adverse to adverse 0 RI JUSTUS reactions reactions [place] to drug to drug [facility] (finding) (finding) PENICILLIN Propensity Eruption Propensity active [place] to adverse to adverse 2 HC S reactions reactions [facility] to drug to drug (finding) (finding) SULFAMETHOXAZ Propensity Eruption Propensity active WHITE OLE to adverse to adverse 0 RI JUSTUS reactions reactions [place] to drug to drug [facility] (finding) (finding) Immunizations Combined list of available immunizations from the Department of Defense and Veterans Affairs facilities. Immunization Series Date Administered Site Reaction Lot CVX Drug St atus Comments Source Given By Number Code Operations [place] COVID-19 3 complet MOD; NE WPORT (MODERNA), 2021 ed [id number]; VA MRNA, LNP-S, CLINIC PF, 100 2 MCG/0.5ML DOSE OR 50 MCG/0.25ML DOSE COVID-19 3 complet WH ITE (PFIZER), 2020 ed RIVE R MRNA, LNP-S, J CT PF, 30 [facility] MCG/0.3 ML DOSE INFLUENZA, complet WHITE UNSPECIFIED 2020 ed RI JUSTUS FORMULATION COMFORT T [facility] COVID-19 2 complet WH ITE (MODERNA), 2020 ed [place] MRNA, LNP-S, J CT PF, 100 [facility] MCG/0.5 ML DOSE COVID-19 1 complet WH ITE (MODERNA), 2020 ed [place] MRNA, LNP-S, J CT PF, 100 [facility] MCG/0.5 ML DOSE INFLUENZA, complet LIZET[place] INJECTABLE, 2019 ed VA QUADRIVALENT, CLINIC PRESERVATIVE FREE PNEUMOCOCCAL complet WHITE CONJUGATE PCV 2015 ed [place] [facility] INFLUENZA, complet Site: WHITE UNSPECIFIED 2013 ed Right RI JUSTUS FORMULATION Deltoid [place] [facility] INFLUENZA, complet Site: WHITE UNSPECIFIED 2012 ed Right RI JUSTUS FORMULATION Deltoid [place] [facility] INFLUENZA, complet Site: WHITE UNSPECIFIED 2011 ed Left RI JUSTUS FORMULATION Deltoid [place] [facility] INFLUENZA, complet WHITE UNSPECIFIED 2010 ed RI JUSTUS FORMULATION COMFORT T [facility] INFLUENZA, complet Site: WHITE UNSPECIFIED 2009 ed Left RI JUSTUS FORMULATION Deltoid [place] [facility] TDAP complet WHITE 2009 ed [place] [facility] INFLUENZA, 08/28/ LANA KRAUS 88 comple t WHITE UNSPECIFIED 2009 A ed RI JUSTUS FORMULATION COMFORT T [facility] INFLUENZA, 08/21/ SA RACHEL 88 comple t WHITE UNSPECIFIED 2008 NDRA E ed R IVER FORMULATION COMFORT T [facility] INFLUENZA, 09/02/ JULIAN GARZA 88 complet WHITE UNSPECIFIED 2006 ed RI JUSTUS FORMULATION COMFORT T [facility] PNEUMOCOCCAL, complet WHITE UNSPECIFIED 2006 ed RI JUSTUS FORMULATION COMFORT T [facility] TD(ADULT) complet W HEIDI UNSPECIFIED 2006 ed RI JUSTUS FORMULATION COMFORT T [facility] INFLUENZA, complet WHITE UNSPECIFIED 2006 ed RI JUSTUS FORMULATION COMFORT T [facility] INFLUENZA, complet WHITE UNSPECIFIED 2004 ed RI JUSTUS FORMULATION COMFORT T [facility] INFLUENZA, complet WHITE UNSPECIFIED 2003 ed RI JUSTUS FORMULATION COMFORT T [facility] TD(ADULT) 11/01/ 139 complet N ORTH UNSPECIFIED 1997 ed CO UNTRY FORMULATION HO SPITA L Results Combined list of recent chemistry, hematology and other laboratory results from Department of Defense and Veterans Affairs, ranging from 15 months to all on record, depending upon the facility. Order Name Results Value Reference Date Interpretation Specimen Com ments Source Range PSA PROSTATE 1.37 0 - 4.0 06/23 Specimen Type: SERUM LIZETT ([employer] /2021 Comment: Testing Performed on [employer] (405) SN:[id number] VA ) [MASS/VOLUM Ordering Pr ovider: CHRISTOPHER CARCAMO] IN SERUM Report Rele ased Date/Time: 2022 09:27 AM OR PLASMA Reporting Lab : [facility] [address] [facility] [address] Performing Lab: [facility] [address] [facility] [address] P4 UREA 26 7 - 25 06/23 H Specimen Type: P LASMA LIZETT GLU,BUN,CR NITROGEN /2021 Comment: Te sts performed on [employer] (405) SN:[id number] CINDI GARCIA, [MASS/VOLUM Ordering Provider: CHRISTOPHER CARCAMO E] IN SERUM Report Rele ased Date/Time: 2022 09:27 AM OR PLASMA Reporting Lab : [facility] [address] [place] [facility] [place] [address] Performing Lab: [facility] [address] [facility] [address] P4 SODIUM 138 135 - 145 06/23 Specimen Type: PLASMA LIZETT GLU,BUN,CR [MOLES/VOLU /2021 Comment: Tests performed on [employer] (405) SN:[id number] CINDI GARCIA, [place]] IN Ordering Pro vider: CHRISTOPHER CARCAMO SERUM OR Report Release d Date/Time: 2022 09:27 AM PLASMA Reporting Lab: [facility] [address] [facility] [address] Performing Lab: [facility] [address] [facility] [address] P4 POTASSIUM 4.6 3.5 - 5.0 06/23 Specimen Typ e: PLASMA LIZET[place] GLU,BUN,CR [MOLES/VOLU /2021 Comment: Tests performed on [employer] (405) SN:[id number] VA EAT,LYTES, [place]] IN Ordering Pro vider: [facility] SERUM OR Report Release d Date/Time: 2022 09:27 AM PLASMA Reporting Lab: [facility] [address] [facility] [address] Performing Lab: [facility] [address] [facility] [address] P4 CHLORIDE 103 100 - 110 06/23 Specimen Type : PLASMA LIZ[place]T GLU,BUN,CR [MOLES/VOLU /2021 Comment: Tests performed on [employer] (405) SN:[id number] VA EAT,LYTES, [place]] IN Ordering Pro vider: [facility] SERUM OR Report Release d Date/Time: 2022 09:27 AM PLASMA Reporting Lab: [facility] [address] [place] [facility] [place] [place] [place] [address] Performing Lab: [facility] [address] [facility] [address] P4 CARBON 29 20 - 30 06/23 Specimen Type: P LASMA LIZ[place]T GLU,BUN,CR DIOXIDE, /2021 Comment: Te sts performed on [employer] (405) SN:[id number] VA EAT,LYTES, TOTAL Ordering Pro vider: [facility] [place] [MOLES/VOLU Report Rele ased Date/Time: 2022 09:27 AM ME] IN Reporting Lab: [facility] SERUM OR [address] [facility] [address] PLASMA Performing Lab: [facility] [address] [place] [facility] [place] [place] [address] P4 ANION GAP 6 4 - 16 06/23 Specimen Type: PLASMA LIZET[place] GLU,BUN,CR IN SERUM OR /2021 Comment: Tests performed on [employer] (405) SN:[id number] VA EAT,LYTES, PLASMA Ordering Pro vider: [facility] [place] Report Released Date/Time: 2022 09:27 AM Reporting Lab: [facility] [address] [facility] [address] Performing Lab: [facility] [address] [facility] [address] P4 GLUCOSE 95 65 - 100 06/23 Specimen Type: PLASMA LIZETT GLU,BUN,CR [MASS/VOLUM /2021 Comment: Tests performed on [employer] (405) SN:[id number] KELLI EAT,LYTES, E] IN SERUM Ordering Provider: [facility] [place] OR PLASMA Report Releas ed Date/Time: 2022 09:27 AM Reporting Lab: [facility] [address] [facility] [address] Performing Lab: [facility] [address] [facility] [address] P4 CREATININE 1.46 0.5 - 1.5 06/23 Specimen Ty pe: PLASMA LIZETT GLU,BUN,CR [MASS/VOLUM /2021 Comment: Tests performed on [employer] (405) SN:[id number] KELLI EATLYTES, E] IN SERUM Ordering Provider: [facility] [place] OR PLASMA Report Releas ed Date/Time: 2022 09:27 AM Reporting Lab: [facility] [address] [facility] [address] Performing Lab: [facility] [address] [facility] [address] P4 CALCIUM 9.4 8.5 - 10.5 06/23 Specimen Type : PLASMA LIZETT GLU,BUN,CR [MASS/VOLUM /2021 Comment: Tests performed on [employer] (405) SN:[id number] KELLI EATLYTES, E] IN SERUM Ordering Provider: [facility] [place] OR PLASMA Report Releas ed Date/Time: 2022 09:27 AM Reporting Lab: [facility] [address] [facility] [address] Performing Lab: [facility] [address] [facility] [address] P4 eGFR(CKD-EP 48 60 06/23 L Specimen Typ e: PLASMA LIZET[place] GLU,BUN,CR I /2021 Comment: Alie ts performed on [employer] (405) SN:[id number] VA EAT,CINDI, Ordering Pro vider: CHRISTOPHER CARCAMO [facility] [place] Report Released Date/Time: 2022 09:27 AM Reporting Lab: [place] [facility] [address] [place] [facility] [place] [place] [place] [address] Performing Lab: [place] [facility] [address] [place] [facility] [place] [place] [place] [address] CBC LEUKOCYTES 4.4 4.5 - 11.0 06/23 L Specimen T ype: BLOOD LIZETT PROFILE [#/VOLUME] /2021 No comment en tered. VA IN BLOOD BY Ordering Pr ovider: CHRISTOPHER CARCAMO [facility] AUTOMATED Report Releas ed Date/Time: 2022 09:27 AM COUNT Reporting Lab: [place] [facility] [address] [place] [facility] [place] [place] [place] [address] Performing Lab: [place] [facility] [address] [facility] [address] CBC ERYTHROCYTE 4.90 4.23 - 06/23 Specimen Typ e: BLOOD [place] PROFILE S 5.66 /2021 No comment enter ed. VA [#/VOLUME] Ordering Pro vider: CHRISTOPHER CARCAMO [facility] IN BLOOD BY Report Rele ased Date/Time: 2022 09:27 AM AUTOMATED Reporting Lab : [place] [facility] COUNT [address] [place] [facility] [place] [address] Performing Lab: [place] [facility] [address] [place] [facility] [place] [place] [place] [address] CBC HEMOGLOBIN 14.6 12.8 - 17 06/23 Specimen Ty pe: BLOOD LI[place] PROFILE [MASS/VOLUM /2021 No comment e ntered. VA E] IN BLOOD Ordering Pr ovider: CHRISTOPHER CARCAMO [facility] Report Released Date/Time: 2022 09:27 AM Reporting Lab: [place] [facility] [address] [place] [facility] [place] [place] [address] Performing Lab: [place] [facility] [address] [place] [facility] [place] [place] [place] [address] CBC HEMATOCRIT 46.4 39.2 - 06/23 Specimen Type : BLOOD [place] PROFILE [VOLUME 50.4 No comment enter ed. VA FRACTION] Ordering Prov ider: CHRISTOPHER CARCAMO [facility] OF BLOOD BY Report Rele ased Date/Time: 2022 09:27 AM AUTOMATED Reporting Lab : [place] [facility] COUNT [address] [place] [facility] [place] [address] Performing Lab: [place] [facility] [address] [place] [facility] [place] [place] [place] [address] CBC MCV 94.7 82 - 99 06/23 Specimen Type: B LOOD LIZ[place] PROFILE [ENTITIC /2021 No comment ente red. VA VOLUME] BY Ordering Pro vider: CHRISTOPHER CARCAMO [facility] AUTOMATED Report Releas ed Date/Time: 2022 09:27 AM COUNT Reporting Lab: [place] [facility] [address] [place] [facility] [place] [address] Performing Lab: [place] [facility] [address] [place] [facility] [place] [place] [address] CBC MCH 29.8 26.2 - 06/23 Specimen Type: B LOOD [place] PROFILE [ENTITIC 32.6 /2021 No comment ente red. VA MASS] BY Ordering Provi kandace: CHRISTOPHER CARCAMO [facility] AUTOMATED Report Releas ed Date/Time: 2022 09:27 AM COUNT Reporting Lab: [place] [facility] [address] [place] [facility] [place] [address] Performing Lab: [place] [facility] [address] [place] [facility] [place] [place] [place] [place] [address] CBC MCHC 31.5 30.8 - 06/23 Specimen Type: B LOOD [place] PROFILE [MASS/VOLUM 35.1 /2021 No comment e ntered. VA E] BY Ordering Provid er: CHRISTOPHER CARCAMO [facility] AUTOMATED Report Releas ed Date/Time: 2022 09:27 AM COUNT Reporting Lab: [place] [facility] [address] [place] [facility] [place] [address] Performing Lab: [place] [facility] [address] [place] [facility] [place] [place] [place] [address] CBC PLATELETS 154 140 - 360 06/23 Specimen Typ e: BLOOD LI[place] PROFILE [#/VOLUME] /2021 No comment en tered. VA IN BLOOD BY Ordering Pr ovider: CHRISTOPHER CARCAMO [facility] AUTOMATED Report Releas ed Date/Time: 2022 09:27 AM COUNT Reporting Lab: [place] [facility] [address] [place] [facility] [place] [address] Performing Lab: [place] [facility] [address] [place] [facility] [place] [place] [place] [address] CBC PLATELET 10.7 9.2 - 12.4 06/23 Specimen Typ e: BLOOD [place] PROFILE MEAN VOLUME /2021 No comment e ntered. VA [ENTITIC Ordering Provi kandace: CHRISTOPHER CARCAMO [facility] VOLUME] IN Report Relea sed Date/Time: 2022 09:27 AM BLOOD BY Reporting Lab: [place] [facility] AUTOMATED [address] [place] [facility] [address] COUNT Performing Lab: [place] [facility] [address] [place] [facility] [place] [place] [address] CBC ERYTHROCYTE 13.2 12.0 - 06/23 Specimen Typ e: BLOOD [place] PROFILE DISTRIBUTIO 16.0 No comment e ntered. VA N WIDTH Ordering Provid er: CHRISTOPHER CARCAMO [facility] [RATIO] BY Report Relea sed Date/Time: 2022 09:27 AM AUTOMATED Reporting Lab : [place] [facility] COUNT [address] [place] [facility] [place] [address] Performing Lab: [place] [facility] [address] [place] [facility] [place] [place] [place] [address] CBC LYMPHOCYTES 13.6 14.0 - 06/23 L Specimen Typ e: BLOOD [place] PROFILE /100 42.3 /2021 No comment enter ed. VA LEUKOCYTES Ordering Pro vider: CHRISTOPHER CARCAMO [facility] IN BLOOD BY Report Rele ased Date/Time: 2022 09:27 AM AUTOMATED Reporting Lab : [place] [facility] [address] [place] [facility] [place] [address] Performing Lab: [place] [facility] [address] [place] [facility] [place] [place] [address] CBC MONOCYTES/1 12.2 5.1 - 13.7 06/23 Specimen Type: BLOOD [place] PROFILE No comment enter ed. VA LEUKOCYTES Ordering Pro vider: CHRISTOPHER CARCAMO [facility] IN BLOOD BY Report Rele ased Date/Time: 2022 09:27 AM AUTOMATED Reporting Lab : [place] [facility] [address] [place] [facility] [place] [place] [address] Performing Lab: [place] [facility] [address] [place] [facility] [place] [address] CBC GRANULOCYTE 63.4 43.7 - 06/23 Specimen Typ e: BLOOD [place] PROFILE S/100 75.8 /2021 No comment enter ed. [place] LEUKOCYTES Ordering Pro vider: CHRISTOPHER CARCAMO [facility] IN BLOOD BY Report Rele ased Date/Time: 2022 09:27 AM AUTOMATED Reporting Lab : [place] [facility] COUNT [address] [facility] [address] Performing Lab: [place] [facility] [address] [facility] [address] CBC EOSINOPHILS 9.7 0.4 - 6.8 06/23 H Specimen T ype: BLOOD [place] PROFILE /100 /2021 No comment enter ed. VA LEUKOCYTES Ordering Pro vider: CHRISTOPHER CARCAMO [facility] IN BLOOD BY Report Rele ased Date/Time: 2022 09:27 AM AUTOMATED Reporting Lab : [place] [facility] COUNT [address] [facility] [address] Performing Lab: [place] [facility] [address] [place] [facility] [place] [place] [address] CBC BASOPHILS/1 0.9 0.1 - 2.0 06/23 Specimen T ype: BLOOD LI[place] PROFILE 00 No comment enter ed. VA LEUKOCYTES Ordering Pro vider: CHRISTOPHER CARCAMO [facility] IN BLOOD BY Report Rele ased Date/Time: 2022 09:27 AM AUTOMATED Reporting Lab : [place] [facility] COUNT [address] [place] [facility] [place] [address] Performing Lab: [place] [facility] [address] [place] [facility] [place] [address] CBC IMMATURE 0.2 0.0 - 0.7 06/23 Specimen Type : BLOOD LIZETT PROFILE No comment e ntered. VA S/100 Ordering Provid er: CHRISTOPHER CARCAMO [facility] LEUKOCYTES Report Relea sed Date/Time: 2022 09:27 AM IN BLOOD BY Reporting L ab: [place] [facility] AUTOMATED [address] [facility] [address] COUNT Performing Lab: [place] [facility] [address] [place] [facility] [place] [address] CBC NUCLEATED 0.0 0.0 - 0.0 06/23 Specimen Typ e: BLOOD [place] PROFILE No comment e ntered. [place] S [facility] [#/VOLUME] Report Relea sed Date/Time: 2022 09:27 AM IN BLOOD BY Reporting L ab: [facility] AUTOMATED [address] [facility] [address] COUNT Performing Lab: [facility] [address] [facility] [address] CBC IMMATURE 0.0 0 - 0.06 06/23 Specimen Type: BLOOD LIZ[place] PROFILE No comment e ntered. VA S [facility]id [facility] [#/VOLUME] Report Relea sed Date/Time: 2022 09:27 AM IN BLOOD Reporting Lab: [facility] [address] [facility] [address] Performing Lab: [facility] [address] [facility] [address] CBC BASOPHILS 0.0 0.01 - 06/23 L Specimen Type: BLOOD LIZETT PROFILE [#/VOLUME] 0.13 No comment en tered. VA IN BLOOD BY Ordering Pr ovider: [facility] AUT[facility] Report Releas ed Date/Time: 2022 09:27 AM COUNT Reporting Lab: [facility] [address] [place] [facility] [place] [address] Performing Lab: [facility] [address] [facility] [address] CBC EOSINOPHILS 0.4 0.03 - 06/23 Specimen Typ e: BLOOD LIZETT PROFILE [#/VOLUME] 0.44 No comment en tered. VA IN BLOOD BY Ordering Pr ovider: [facility] Report Releas ed Date/Time: 2022 09:27 AM COUNT Reporting Lab: [facility] [address] [facility] [address] Performing Lab: [facility] [address] [facility] [address] CBC LYMPHOCYTES 0.6 1.0 - 3.2 08/23 L Specimen T ype: BLOOD LIZETT PROFILE [#/VOLUME] /2021 No comment en tered. VA IN BLOOD BY [facility]ing Pr ovider[facility] AUT[facility]ATED Report Releas ed Date/Time: 2022 09:27 AM COUNT Reporting Lab: [place] [facility] [address] [place] [facility] [place] [address] Performing Lab: [facility] [address] [place] [facility] [place] [place] [place] [address] CBC MONOCYTES 0.5 0.3 - 1.1 06/23 Specimen Typ e: BLOOD LIZETT PROFILE [#/VOLUME] /2021 No comment en tered. VA IN BLOOD BY Ordering Pr ovider: [facility] AUTOMATED Report Releas ed Date/Time: 2022 09:27 AM COUNT Reporting Lab: [place] [facility] [address] [place] [facility] [place] [place] [address] Performing Lab: [facility] [place] [facility] [address] [place] [facility] [place] [place] [place] [place] [address] CBC NEUTROPHILS 2.8 2.2 - 7.6 06/23 Specimen T ype: BLOOD LIZETT PROFILE [#/VOLUME] /2021 No comment en tered. VA IN BLOOD BY Ordering Pr ovider: [facility] AUT[facility]ATED Report Releas ed Date/Time: 2022 09:27 AM COUNT Reporting Lab: [place] [facility] [address] [place] [facility] [place] [place] [address] Performing Lab[facility] [place] [facility] [address] [place] [facility] [place] [place] [place] [address] CBC NUCLEATED 0.00 0 - 0 06/23 Specimen Type: BLOOD LIZETT PROFILE ERYTHROCYTE No comment e ntered. [facility] [#/VOLUME] Report Relea sed Date/Time: 2022 09:27 AM IN BLOOD BY Reporting Lab: [facility] [address] [place] [facility] [place] [address] COUNT Performing Lab: [facility] [address] [place] [facility] [place] [place] [address] CREATININE CREATININE 1.35 0.5 - 1.5 02/19 Specimen Type: PLASMA LIZETT WITH eGFR [MASS/VOLUM /2021 Comment: Tests performed on [employer] (405) SN:[id number] VA PANEL E] IN SERUM Ordering Pr ovider: HIREN PETERSON OR PLASMA Report Releas ed Date/Time: Aug 07, 2021 02:40 PM Reporting Lab: [facility] [address] [place] [facility] [place] [address] Performing Lab: [facility] [address] [facility] [place] [place] [place] [place] [address] CREATININE eGFR(CKD-EP 53 60 02/19 L Specimen Type: PLASMA LIZETT WITH eGFR I /2021 Comment: Test s performed on [employer] (405) SN:[id number] VA PANEL Ordering Provid er: HIREN PETERSON Report Released Date/Time: Aug 07, 2021 02:40 PM Reporting Lab: [facility] [address] [place] [facility] [place] [facility] [place] [address] Performing Lab: [facility] [address] [facility] [place] [place] [place] [place] [address] CBC LEUKOCYTES 5.0 4.5 - 11.0 02/19 Specimen T ype: BLOOD LIZETT PROFILE [#/VOLUME] /2021 No comment en tered. VA IN BLOOD BY Ordering Pr ovider: HIREN PETERSON AUTOMATED Report Releas ed Date/Time: Aug 07, 2021 02:40 PM COUNT Reporting Lab: [facility] [address] [place] [facility] [place] [facility] [place] [address] Performing Lab: [facility] [address] [facility] [place] [place] [place] [address] CBC ERYTHROCYTE 4.99 4.23 - 02/19 Specimen Typ e: BLOOD LIZETT PROFILE S 5.66 /2021 No comment enter ed. VA [#/VOLUME] Ordering Pro vider: HIREN PETERSON IN BLOOD BY Report Rele ased Date/Time: Aug 07, 2021 02:40 PM AUTOMATED Reporting Lab : [facility] COUNT [address] [place] [facility] [place] [facility] [place] [address] Performing Lab: [facility] [address] [facility] [place] [place] [address] CBC HEMOGLOBIN 15.1 12.8 - 17 02/19 Specimen Ty pe: BLOOD LIZETT PROFILE [MASS/VOLUM /2021 No comment e ntered. VA E] IN BLOOD Ordering Pr ovider: HIREN PETERSON [facility] Report Released Date/Time: Aug 07, 2021 02:40 PM Reporting Lab: [facility] [address] [place] [facility] [place] [facility] [place] [address] Performing Lab: [facility] [address] [facility] [place] [address] CBC HEMATOCRIT 47.2 39.2 - 02/19 Specimen Type : BLOOD LIZETT PROFILE [VOLUME 50.4 No comment enter ed. VA FRACTION] Ordering Prov ider: HIREN PETERSON [facility] OF BLOOD BY Report Rele ased Date/Time: Aug 07, 2021 02:40 PM AUTOMATED Reporting Lab : [facility] COUNT [address] [place] [facility] [place] [facility] [place] [address] Performing Lab: [facility] [address] [facility] [place] [address] CBC MCV 94.6 82 - 99 02/19 Specimen Type: B LOOD LIZETT PROFILE [ENTITIC /2021 No comment ente red. VA VOLUME] BY Ordering Pro vider: [facility] AUT[facility] Report Releas ed Date/Time: Aug 07, 2021 02:40 PM COUNT Reporting Lab: [facility] [address] [place] [facility] [place] [place] [address] Performing Lab: [facility] [address] [place] [facility] [place] [facility] [place] [address] CBC MCH 30.3 26.2 - 02/19 Specimen Type: B LOOD LIZETT PROFILE [ENTITIC 32.6 No comment ente red. VA MASS] BY Ordering Provi kandace: HIREN PETERSON [facility] AUTOMATED Report Releas ed Date/Time: Aug 07, 2021 02:40 PM COUNT Reporting Lab: [facility] [address] [place] [facility] [place] [facility] [place] [address] Performing Lab: [facility] [address] [place] [facility] [place] [facility] [place] [address] CBC MCHC 32.0 30.8 - 02/19 Specimen Type: B LOOD LIZETT PROFILE [MASS/VOLUM 35.1 /2021 No comment e ntered. VA E] BY [facility]ing [facility]id [facility] Report Releas ed Date/Time: Aug 07, 2021 02:40 PM COUNT Reporting Lab: [facility] [address] [facility] [place] [address] Performing Lab: [facility] [address] [facility] [place] [address] CBC PLATELETS 183 140 - 360 02/19 Specimen Typ e: BLOOD LIZETT PROFILE [#/VOLUME] /2021 No comment en tered. VA IN BLOOD BY Ordering Pr ovider: HIREN PETERSON AUTOMATED Report Releas ed Date/Time: Aug 07, 2021 02:40 PM COUNT Reporting Lab: [facility] [address] [facility] [address] Performing Lab: [facility] [address] [facility] [address] CBC PLATELET 10.4 9.2 - 12.4 02/19 Specimen Typ e: BLOOD LIZETT PROFILE MEAN VOLUME /2021 No comment e ntered. VA [ENTITIC Ordering Provi kandace: HIREN PETERSON VOLUME] IN Report Relea sed Date/Time: Aug 07, 2021 02:40 PM BLOOD BY Reporting Lab: [facility] AUTOMATED [address] [facility] [address] COUNT Performing Lab: [facility] [address] [facility] [place] [address] CBC ERYTHROCYTE 14.4 12.0 - 02/19 Specimen Typ e: BLOOD LIZETT PROFILE DISTRIBUTIO 16.0 /2021 No comment e ntered. VA N WIDTH Ordering Provid er: HIREN PETERSON [RATIO] BY Report Relea sed Date/Time: Aug 07, 2021 02:40 PM AUTOMATED Reporting Lab : [facility] COUNT [address] [facility] [place] [address] Performing Lab: [facility] [address] [facility] [place] [address] CBC LYMPHOCYTES 12.5 14.0 - 02/19 L Specimen Typ e: BLOOD LIZETT PROFILE /100 42.3 /2021 No comment enter ed. VA LEUKOCYTES Ordering Pro vider: HIREN PETERSON IN BLOOD BY Report Rele ased Date/Time: Aug 07, 2021 02:40 PM AUTOMATED Reporting Lab : [facility] [address] [facility] [address] Performing Lab: [facility] [address] [facility] [place] [address] CBC MONOCYTES/1 13.7 5.1 - 13.7 02/19 Specimen Type: BLOOD LIZETT PROFILE No comment enter ed. VA LEUKOCYTES Ordering Pro vider: HIREN PETERSON IN BLOOD BY Report Rele ased Date/Time: Aug 07, 2021 02:40 PM AUTOMATED Reporting Lab : [facility] [address] [facility] [address] Performing Lab: [facility] [address] [facility] [address] CBC GRANULOCYTE 69.4 43.7 - 02/19 Specimen Typ e: BLOOD LIZETT PROFILE S/100 75.8 No comment enter ed. VA LEUKOCYTES Ordering Pro vider: HIREN PETERSON IN BLOOD BY Report Rele ased Date/Time: Aug 07, 2021 02:40 PM AUTOMATED Reporting Lab : [facility] [address] [facility] [address] Performing Lab[facility] [address] [facility] [address] CBC EOSINOPHILS 3.4 0.4 - 6.8 02/19 Specimen T ype: BLOOD LIZETT PROFILE / No comment enter ed. VA LEUKOCYTES Ordering Pro vider: HIREN PETERSON IN BLOOD BY Report Rele ased Date/Time: Aug 07, 2021 02:40 PM AUTOMATED Reporting Lab : [facility] COUNT [address] [facility] [address] Performing Lab: [facility] [place] [facility] [address] [facility] [address] CBC BASOPHILS/1 0.4 0.1 - 2.0 02/19 Specimen T ype: BLOOD LIZETT PROFILE No comment enter ed. VA LEUKOCYTES Ordering Pro vider: HIREN PETERSON IN BLOOD BY Report Rele ased Date/Time: Aug 07, 2021 02:40 PM AUTOMATED Reporting Lab : [facility] [place] [facility] [address] [facility] [address] Performing Lab: [facility] [address] [facility] [address] CBC IMMATURE 0.6 0.0 - 0.7 02/19 Specimen Type : BLOOD LIZETT PROFILE GRANULOCYTE /2021 No comment e ntered. VA S/100 [facility]ing Provid er[facility] LEUK[facility] Report Relea sed Date/Time: Aug 07, 2021 02:40 PM IN BLOOD BY Reporting L ab: [facility] AUTOMATED [address] [place] [facility] [address] COUNT Performing Lab: [facility] [address] [facility] [place] [place] [address] CBC NUCLEATED 0.0 0.0 - 0.0 02/19 Specimen Typ e: BLOOD LIZETT PROFILE ERYTHROCYTE No comment e ntered. IA S Ordering Provid er: [facility] [#/VOLUME] Report Relea sed Date/Time: Aug 07, 2021 02:40 PM IN BLOOD BY Reporting L ab: [facility] AUTOMATED [address] [place] [facility] [place] [address] COUNT Performing Lab: [facility] [address] [facility] [place] [address] CBC IMMATURE 0.0 0 - 0.06 02/19 Specimen Type: BLOOD LIZETT PROFILE GRANULOCYTE /2021 No comment e ntered. IA S Ordering Provid er: [facility] [#/VOLUME] Report Relea sed Date/Time: Aug 07, 2021 02:40 PM IN BLOOD Reporting Lab: [facility] [address] [facility] [place] [place] [address] Performing Lab: [facility] [address] [facility] [place] [place] [address] CBC BASOPHILS 0.0 0.01 - 02/19 L Specimen Type: BLOOD LIZETT PROFILE [#/VOLUME] 0.13 No comment en tered. VA IN BLOOD BY Ordering Pr ovider: [facility] AUTOMATED Report Releas ed Date/Time: Aug 07, 2021 02:40 PM COUNT Reporting Lab: [facility] [address] [facility] [place] [address] Performing Lab: [facility] [address] [facility] [place] [address] CBC EOSINOPHILS 0.2 0.03 - 02/19 Specimen Typ e: BLOOD LIZETT PROFILE [#/VOLUME] 0.44 /2021 No comment en tered. VA IN BLOOD BY Ordering Pr ovider: [facility] AUTOMATED Report Releas ed Date/Time: Aug 07, 2021 02:40 PM COUNT Reporting Lab: [facility] [address] [facility] [place] [address] Performing Lab: [facility] [address] [facility] [place] [place] [place] [address] CBC LYMPHOCYTES 0.6 1.0 - 3.2 02/19 L Specimen T ype: BLOOD LIZETT PROFILE [#/VOLUME] /2021 No comment en tered. VA IN BLOOD BY Ordering Pr ovider: [facility] AUTOMATED Report Relea sed Date/Time: Aug 07, 2021 02:40 PM COUNT Reporting Lab: [facility] [address] [facility] [place] [place] [address] Performing Lab: [facility] [address] [facility] [place] [place] [address] CBC MONOCYTES 0.7 0.3 - 1.1 02/19 Specimen Typ e: BLOOD LIZETT PROFILE [#/VOLUME] /2021 No comment en tered. VA IN BLOOD BY Ordering Pr ovider: [facility] AUTOMATED Report Releas ed Date/Time: Aug 07, 2021 02:40 PM COUNT Reporting Lab: [facility] [address] [facility] [place] [address] Performing Lab: [facility] [address] [facility] [place] [address] CBC NEUTROPHILS 3.5 2.2 - 7.6 02/19 Specimen T ype: BLOOD LIZETT PROFILE [#/VOLUME] /2021 No comment en tered. VA IN BLOOD BY Ordering Pr ovider: [facility] AUTOMATED Report Releas ed Date/Time: Aug 07, 2021 02:40 PM COUNT Reporting Lab: [facility] [address] [facility] [place] [address] Performing Lab: [facility] [address] [facility] [place] [place] [place] [address] CBC NUCLEATED 0.00 0 - 0 02/19 Specimen Type: BLOOD LIZETT PROFILE ERYTHROCYTE No comment e ntered. VA S Ordering Provid er: HIREN PETERSON [facility] [#/VOLUME] Report Relea sed Date/Time: Aug 07, 2021 02:40 PM IN BLOOD BY Reporting L ab: [facility] AUTOMATED [address] [place] [facility] [address] COUNT Performing Lab: [facility] [address] [facility] [place] [address] ALT(SGPT) ALANINE 15 7 - 52 08/05 Specimen Type: PLASMA WHITE AMINOTRANSF /2020 Comment: Te sts performed on [employer] (405) SN:[id number] RIVER ERASE Ordering Provid er: MERNA DOWDT [ENZYMATIC Report Relea sed Date/Time: Feb 07, 2021 10:02 AM [facility] ACTIVITY/VO Reporting L ab: [facility] LUME] IN [address] [place] [facility] [place] [address] SERUM OR Performing Lab : [facility] PLASMA [address] [facility] [place] [address] CREATININE CREATININE 1.29 0.5 - 1.5 08/05 Specimen Type: PLASMA WHITE WITH eGFR [MASS/VOLUM /2020 Comment: Tests performed on [employer] (405) SN:[id number] RIVER PANEL E] IN SERUM Ordering Pr ovider: MERNA DOWDT OR PLASMA Report Releas ed Date/Time: Feb 07, 2021 10:02 AM [facility] Reporting Lab: [facility] [address] [place] [facility] [place] [facility] [place] [address] Performing Lab: [facility] [address] [facility] [place] [address] CREATININE GLOMERULAR 54 60 10 L Specimen T ype: PLASMA WHITE WITH eGFR FILTRATION /2020 Comment: T ests performed on [employer] (405) SN:[id number] RIVER PANEL RATE/1.73 Ordering Prov ider: MERNA DOWD SQ Report Released Date/Time: Feb 07, 2021 10:02 AM [facility] Reporting L ab: [facility] [VOLUME [address] [facility] [place] [address] RATE/AREA] Performing L ab: [facility] IN SERUM OR [address] [place] [facility] [place] [address] PLASMA BY CREATININE- BASED FORMULA (MDRD) CBC NO LEUKOCYTES 5.0 4.5 - 11.0 08/05 Specimen T ype: BLOOD WHITE DIFF [#/VOLUME] /2020 No comment en tered. RIVER IN BLOOD BY Ordering Pr ovider: MERNA DOWDT AUTOMATED Report Releas ed Date/Time: Feb 07, 2021 10:02 AM [facility] COUNT Reporting Lab: [facility] [address] [place] [facility] [place] [facility] [place] [address] Performing Lab: [facility] [address] [facility] [place] [place] [address] CBC NO ERYTHROCYTE 5.18 4.23 - 08/05 Specimen Typ e: BLOOD WHITE DIFF S 5.66 No comment enter ed. RIVER [#/VOLUME] Ordering Pro vider: MERNA DOWD [place] IN BLOOD BY Report Rele ased Date/Time: Feb 07, 2021 10:02 AM [facility] AUTOMATED Reporting Lab : [facility] COUNT [address] [facility] [place] [address] Performing Lab: [facility] [address] [facility] [place] [place] [address] CBC NO HEMOGLOBIN 15.2 12.8 - 17 08/05 Specimen Ty pe: BLOOD WHITE DIFF [MASS/VOLUM /2020 No comment e ntered. RIVER E] IN BLOOD Ordering Pr ovider: MERNA DOWD Report Released Date/Time: Feb 07, 2021 10:02 AM [facility] Reporting Lab: [facility] [address] [facility] [place] [address] Performing Lab: [facility] [address] [facility] [place] [address] CBC NO HEMATOCRIT 48.7 39.2 - 08/05 Specimen Type : BLOOD WHITE DIFF [VOLUME 50.4 No comment enter ed. RIVER FRACTION] Ordering Prov ider: MERNA DOWD [place] OF BLOOD BY Report Rele ased Date/Time: Feb 07, 2021 10:02 AM [facility] AUTOMATED Reporting Lab : [facility] COUNT [address] [facility] [place] [address] Performing Lab: [facility] [address] [facility] [place] [address] CBC NO MCV 94.0 82 - 99 08/05 Specimen Type: B LOOD WHITE DIFF [ENTITIC /2020 No comment ente red. RIVER VOLUME] BY Ordering Pro vider: MERNA DOWD AUTOMATED Report Releas ed Date/Time: Feb 07, 2021 10:02 AM [facility] COUNT Reporting Lab: [facility] [address] [facility] [address] Performing Lab: [facility] [address] [facility] [place] [address] CBC NO MCH 29.3 26.2 - 08/05 Specimen Type: B LOOD WHITE DIFF [ENTITIC 32.6 /2020 No comment ente red. RIVER MASS] BY Ordering Provi kandace: MERNA DOWD AUTOMATED Report Releas ed Date/Time: Feb 07, 2021 10:02 AM [facility] COUNT Reporting Lab: [facility] [address] [facility] [place] [address] Performing Lab: [facility] [address] [facility] [place] [address] CBC NO MCHC 31.2 30.8 - 08/05 Specimen Type: B LOOD WHITE DIFF [MASS/VOLUM 35.1 No comment e ntered. RIVER E] BY Ordering Provid er: MERNA DOWD AUTOMATED Report Releas ed Date/Time: Feb 07, 2021 10:02 AM [facility] COUNT Reporting Lab: [facility] [address] [place] [facility] [place] [place] [address] Performing Lab: [facility] [address] [facility] [place] [address] CBC NO PLATELETS 190 140 - 360 08/05 Specimen Typ e: BLOOD WHITE DIFF [#/VOLUME] /2020 No comment en tered. RIVER IN BLOOD BY Ordering Pr ovider: MERNA DOWD AUTOMATED Report Releas ed Date/Time: Feb 07, 2021 10:02 AM [facility] COUNT Reporting Lab: [facility] [address] [place] [facility] [place] [facility] [place] [address] Performing Lab: [facility] [address] [facility] [place] [address] CBC NO PLATELET 10.8 9.2 - 12.4 10 Specimen Typ e: BLOOD WHITE DIFF MEAN VOLUME /2020 No comment e ntered. RIVER [ENTITIC Ordering Provi kandace: MERNA DOWDT VOLUME] IN Report Relea sed Date/Time: Feb 07, 2021 10:02 AM [facility] BLOOD BY Reporting Lab: [place] [facility] [address] [facility] [address] COUNT Performing Lab: [facility] [place] [facility] [address] [facility] [address] CBC NO ERYTHROCYTE 14.3 12.0 - 08/05 Specimen Typ e: BLOOD WHITE DIFF DISTRIBUTIO 16.0 /2020 No comment e ntered. RIVER N WIDTH Ordering Provid er: MERNA DOWDT [RATIO] BY Report Relea sed Date/Time: Feb 07, 2021 10:02 AM [facility] AUTOMATED Reporting Lab : [place] [facility] COUNT [address] [facility] [address] Performing Lab: [facility] [address] [facility] [address] AST(SGOT) ASPARTATE 19 5 - 34 08/05 Specimen Typ e: PLASMA WHITE AMINOTRANSF /2020 Comment: Te sts performed on [employer] (405) SN:[id number] RIVER ERASE Ordering Provid er: MERNA DOWDT [ENZYMATIC Report Relea sed Date/Time: Feb 07, 2021 10:02 AM [facility] ACTIVITY/VO Reporting L ab: [place] [facility] LUME] IN [address] [facility] [address] SERUM OR Performing Lab : [facility] [facility] PLASMA [address] [facility] [address] LIPOPROTEI CHOLESTEROL 156 0 - 199 04/17 Specimen Type: PLASMA LIZETT N [MASS/VOLUM /2020 Comment: Te sts performed on [employer] (405) SN:[id number] VA CHOLESTERO E] IN SERUM Ordering Provider: CHRISTOPHER CARCAMO L FRACT. OR PLASMA Report Relea sed Date/Time: Apr 17, 2021 10:29 AM PANEL Reporting Lab: [place] [address] [facility] [address] Performing Lab: [facility] [address] [facility] [address] LIPOPROTEI TRIGLYCERID 74 0 - 149 04/17 Specimen Type: PLASMA LIZETT N E /2020 Comment: Tests performed on [employer] (405) SN:[id number] VA CHOLESTERO [MASS/VOLUM Ordering Provider: CHRISTOPHER CARCAMO L FRACT. E] IN SERUM Report Rel eased Date/Time: Apr 17, 2021 10:29 AM PANEL OR PLASMA Reporting Lab : [facility] [address] [facility] [address] Performing Lab: [facility] [address] [facility] [address] LIPOPROTEI CHOLESTEROL 44 40 04/17 Specimen Type: PLASMA LIZETT N IN HDL Comment: Tests performed on [employer] (405) SN:[id number] VA CHOLESTERO [MASS/VOLUM Ordering Provider: CHRISTOPHER CARCAMO [facility] L FRACT. E] IN SERUM Report Rel eased Date/Time: Apr 17, 2021 10:29 AM PANEL OR PLASMA Reporting Lab : [facility] [address] [facility] [address] Performing Lab: [facility] [address] [facility] [address] LIPOPROTEI CHOLESTEROL 97 0 - 129 04/17 Specimen Type: PLASMA LIZETT N IN LDL Comment: Tests performed on [employer] (405) SN:[id number] VA CHOLESTERO [MASS/VOLUM Ordering Provider: CHRISTOPHER CARCAMO [facility] L FRACT. 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 Vital Sign Value Date Comments Source SYSTOLIC BLOOD PRESSURE 135 2022 08:56:09 [facility] DIASTOLIC BLOOD PRESSURE 71 2022 08:56:09 [facility] PULSE OXIMETRY 96% 2022 08:56:09 [facility] WEIGHT 156.6 2022 08:56:09 [facility] BMI 23kg/m2 2022 08:56:09 [facility] PAIN 0 2022 08:56:09 [facility] TEMPERATURE 97.1 2022 08:56:09 [facility] PULSE 58 2022 08:56:09 [facility] RESPIRATION 16 2022 08:56:09 [facility] Encounters Combined list of: 1) Encounters from Department of Veterans Affairs facilities going back up to the last 18 months. 2) Encounters from the Department of Defense facilities going back up to 280 months. 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, left eye, with macular edema Outpatient [id number] 03/03 WHIT E Encounter [id number] /2020 [facility] [facility] OFFICE O/P 65309-7.40 Diagnos CHRISTOPHER CARCAMO 04/17 [place] EST MOD [id number] is: D [facility] 30-39 MIN 00 ICD-10- CLINIC CM I48.91 Unspeci fied atrial fibrill ation<b r/>with Provide r Comment s: Unspeci fied Atrial Fibrill ation AFLIBERCEP 20332-8.40 Diagnos MICHELE,ARTH 06/13 WHITE T [id number] is: UR [facility] INJECTION ICD-10- [facility] 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, left eye, with macular edema<b r/>with Provide r Comment s: 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, left eye, with macular edema Outpatient [id number] 06/13 WHIT E Encounter [id number] /2021 [facility] [facility] OFFICE O/P 66820-6.40 Diagnos [place],ARTH 06/13 WHITE EST MOD [id number] is: UR HUNTER ER 30-39 MIN ICD-10- [facility] 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, left eye, with macular edema<b r/>with Provide r Comment s: Trib rtnl vein occlusi on, left eye, with macular edema Outpatient 96853-6.40 08/25 WHIT E Encounter [id number] [place] [facility] Outpatient 63770-9.40 08/31 WHIT E Encounter [id number] [place] [facility] OFFICE O/P 43397-3.40 Diagnos MICHELE,ARTH 11/28 WHITE EST MOD [id number] is: UR HUNTER ER 30-39 MIN ICD-10- [place] [facility] 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, left eye, with macular edema<b r/>with Provide r Comment s: Trib rtnl vein occlusi on, left eye, with macular edema Outpatient 45137-5.40 02/09 WHIT E Encounter [id number] [facility] [facility] HEARING 11478-8.40 Diagnos DAHL,RACHE 02/09 WHITE AID [phone] is: L [place] SUP/ACCESS ICD-10- SYD [place] /DEV CM [facility] Z46.1 Encount er for fitting and adjustm ent of hearing aid<br/ >with Provide r Comment s: Encount er for Fitting and Adjustm ent of Hearing Aid ADM 50690-9.40 Diagnos Amarilis GOOD 02/19 [place] SARSCOV2 [id number] is: E[place] 50MCG/0.25 54 ICD-10- CLINIC MLBST CM Z23 Encount er for immuniz ation<b r/>with Provide r Comment s: Encount er for immuniz ation HC PRO 95364-5.40 Diagnos MATTHEW THURSTON 02/20 W HEIDI PHONE CALL [id number] is: ALEC L RIVE R 11-20 MIN ICD-10- JCT CM [facility] 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, left eye, with macular edema<b r/>with Provide r Comment s: Trib rtnl vein occlusi on, left eye, with macular edema Outpatient 32107-6.40 04/16 WHIT E Encounter [id number] /2021 [place] [facility] Outpatient 48870-4.40 04/22 WHIT E Encounter [id number] /2021 [place] [facility] Outpatient 78990-1.40 05/13 WHIT E Encounter [id number] /2021 [place] [facility] OFFICE O/P 49256-8.40 Diagnos MICHELE,ARTH 06/12 WHITE EST MOD [id number] is: UR HUNTER ER 30-39 MIN ICD-10- [place] CM [facility] 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
with Provide r Comment s: Sensori neural Hearing Loss, Bilater al Outpatient 46711-4.52 06/22 [place] ON Encounter [id number] [facility] OFFICE O/P 92624-9.40 Diagnos CHRISTOPHER CARCAMO 06/23 [place] EST LOW [id number] is: D VA 20-29 MIN 72 ICD-10- CLINIC CM I48.91 Unspeci fied atrial fibrill ation<b r/>with Provide r Comment s: Unspeci fied Atrial Fibrill ation Outpatient 37540-6.40 07/09 WHIT E Encounter [id number] [place] [facility] [place] 91588-0.40 07/14 WHIT E Encounter [id number] [place] [facility] Outpatient 60666-8.40 Diagnos BLANCA LEIJA 07/14 WHITE Encounter [id number] is: R J RIVER ICD-10- [place] CM [facility] 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 Social History Response Date Comment Source Type Tobacco smoking VA-TOBACCO FORMER 2022 [facility] status NHIS USER History of tobacco VA-TOBACCO QUIT 15 2022 [facility] use YRS OR MORE History of tobacco VA-TOBACCO QUIT 15 05/28/2020 [facility] [place] use [place]RS [place] MORE [facility] History of tobacco VA-TOBACCO QUIT 5 12/29/2018 [place] use TO < 15 YRS [facility] History of tobacco QUIT TOBACCO USE > 04/29/2017 [facility] VA use 7 YEARS AGO CLINIC History of tobacco QUIT TOBACCO USE > 09/04/2015 [facility] [place] use 7 YEARS AGO [facility] History of tobacco HISTORY OF SMOKING 07/31/2005 Pt. quit 25 year s [place] use ago. [facility] History of tobacco HISTORY OF SMOKING 07/30/2004 Pt. quit about 3 0 [place] use years ago. [facility] History of tobacco QUIT TOBACCO USE > 01/16/2004 30 years ago [place] use 7 YEARS AGO [facility] History of tobacco HISTORY OF SMOKING 06/20/2003 Pt. quit 25 year s [place] use ago. [facility] History of tobacco HISTORY OF SMOKING 06/08/2002 [place] [facility] History of tobacco HISTORY OF SMOKING 06/09/2001 [place] use [facility] Plan of Care List of future care activities from Department of Veterans Affairs facilities. Additional future care activities may be listed in the Assessment and Plan section. Date/Time Care Activity Care Activity Detail Facility 08/24/2022 AMBULATORY - SURGERY AMBULATORY - SURGERY [facility]
--- OUTSIDE RECORDS SUMMARY | 2022-07-17 12:28 | XMS_ITS | Encounter Summary ---
:1940 Author Organization Department [facility] rs Address [address] [place] [id number] Support Name Relationship Address Phone BLAS CASTRO Unavailable [phone] [facility] [place] [address] THEA CASTRO Unavailable [address] [place] [address] Insurance Providers: All historical and current Section [...] [place] PREFERRED STAND Jun 01, [id number] [phone] CHERIE PERN,A PATIENT (FEDERAL) PROVIDER MACY 2006 70 7 RNOLD ORGANIZAT FAMIL ION (PPO) Y 105 BCBS OF PREFERRED STAND Nov 01, [id number] [phone] HALPER N,A PATIENT MASS FEP PROVIDER MACY 2004 70 6 RNOLD ORGANIZAT FAMIL ION (PPO) Y BCBS OF DENTAL STAND Nov 01, DENTAL [id number] [phone] MATTHEW,A PATIENT MASS FEP INSURANCE MACY 2004 70 6 RNOLD DENTAL [place] OF [place] PREFERRED STAND Nov 01, [id number] [phone] CHERIE PERN,A PATIENT FEDERAL PROVIDER MACY 2020 70 4 RNOLD ORGANIZAT SELF ION (PPO) [place] PREFERRED STAND Nov 01, 105 [id number] [phone] CHERIE PERN,A PATIENT FEDERAL PROVIDER MACY 2004 70 4 RNOLD ORGANIZAT FAMIL ION (PPO) Y CAREMARK PRESCRIPT FEP Nov 02 [id number] [phone] HALP GURJIT,A PATIENT ([id number]) ION 2011 0 70 7 RNOLD CAREMARK PRESCRIPT CAREM Nov 01, [id number] [phone] HALP GURJIT,A PATIENT FEP BCBS ION ARK 2011 0 70 1 RNOLD FEPRX PLAN [place]-F PRESCRIPT BCBS Nov 01, [id number] [phone] QUIÑONES LPERN,A PATIENT EP BCBS ION FEP 2011 0 [id number] RNOLD PLAN MEDICARE MEDICARE PART Jun 01, PART A [id number] [phone] HALPER N,A PATIENT (WNR) (M) A 2006 38A 2 RNOLD MEDICARE MEDICARE PART Jun 01, PART B [id number] [phone] HALPER N,A PATIENT (WNR) (M) B 2006 38A 2 RNOLD MEDICARE MEDICARE PART Jun 01, PART A [id number] HALPER N,A PATIENT (WNR) (M) A 2006 [id number] 2 RNOLD MEDICARE MEDICARE PART Jun 01, PART B [id number] [phone] HALPER N,A PATIENT (WNR) (M) B 2006 [id number] 2 RNOLD MEDICARE MEDICARE PART Jun 01, PART A [id number] [phone] HALPER N,A PATIENT (WNR) (M) A 2006 XF33 2 RNOLD MEDICARE MEDICARE PART Jun 01, PART B [id number] HALPER N,A PATIENT (WNR) (M) B 2006 [id number] 2 RNOLD MEDICARE MEDICARE PART Jun 01, PART A [id number] [phone] HALPER N,A PATIENT (WNR) (M) A 2006 38A 00 RNOLD MEDICARE MEDICARE PART Jun 01, PART B [id number] [phone] HALPER N,A PATIENT (WNR) (M) B 2006 38A 00 RNOLD MEDICARE MEDICARE PART Jun 01, PART A [id number] [phone] HALPER N,A PATIENT (WNR) (M) A 2006 [id number] 00 RNOLD MEDICARE MEDICARE PART Jun 01, PART B [id number] [phone] HALPER N,A PATIENT (WNR) (M) B 2006 [id number] RNOLD Selected Encounter This section includes the information on record at VA for the Encounter. Date/Time Encounter Type Encounter Reason Provider Source Description Aug 25, 2021 OFFICE O/P EST OPHTHALMOLOGY ICD-10-CM CAITLIN MICHELE 08:30 AM MOD 30-39 MIN H34.8320 Trib JON rtnl vein occlusion, left eye, with macular edema with Provider Comments: Trib rtnl vein occlusion, left eye, with macular edema IHE Encounter Template Text not used by VA Assessments - Encounter Diagnoses This section includes the primary and secondary diagnoses documented for the Encounter. Date/Time Primary/Secondary Diagnosis Name Provider Source Diagnosis Aug 25, 2021 PRIMARY Trib rtnl vein CAITLIN MICHELE 09:23 AM occlusion, left [place] [facility] eye, with macular edema Plan of Treatment: Future Appointments (+ 6 months) and Future Tests (+/- 45 days) The Plan of Treatment section includes future care activities for the patient from all VA treatmentfacilities. This section includes future appointments and future orders which are active, pending orscheduled.Future Appointments This section includes appointments that were scheduled to occur 6 months from the date of the Encounter, up to a maximum of 20 appointments. The data comes from all [place] treatment facilities. Appointment Date/Time Appointment Type Appointment Facili ty Name Nov 28, 2021 10:30 AM AMBULATORY - SURGERY [place] [facility] Feb 09, 2022 09:30 AM AMBUL[facility]ORY - SURGERY [place] [facility] Feb 09, 2022 12:30 PM [facility] - SURG[place] [facility] Feb 09, 2022 02:30 PM [facility] [place] [facility] Feb 16, 2022 08:30 AM [facility] Feb 19, 2022 10:30 AM [facility] Feb 19, 2022 10:45 AM [facility] Feb 20, 2022 02:00 PM AMBULATORY - MEDICINE [place] [facility] Lab Results: +/- 30 days of the encounter This section includes the Chemistry and Hematology Lab Results on record with VA for the patient. Radiology Reports and Pathology Reports are provided separately, in subsequent sections.Lab Results This section contains the Chemistry/Hematology Results that were resulted 30 days before or 30 daysafter the date of the Encounter. Date/Time Source Result Type Result - Unit Interpretation Reference Range Comment Aug 05, 2021 09:09 AM [place] [facility] ALT(SGPT) Sp ecimen Type: PLASMA Comment: Tests performed on [employer] Train[employer] (405) [id number] Ordering Provid er: MERNA DOWD Report Released Date/Time: Feb 07, 2021 10:02 AM Reporting Lab: [facility] [facility] [address] [facility] [address] Performing Lab: [place] [facility] [address] [facility] [address] ALT(SGPT) 15 7-52 Aug 05, 2021 09:09 AM [place] [facility] AST(SGOT) Sp ecimen Type: PLASMA Comment: Tests performed on [employer] (405) SN:[id number] Ordering Provid er: MERNA DOWD Report Released Date/Time: Feb 07, 2021 10:02 AM Reporting Lab: [facility] [address] [facility] [address] Performing Lab: [place] [facility] [address] [facility] [address] AST(SGOT) 19 5-34 Aug 05, 2021 09:09 [place] CBC NO DIFF Specimen Typ e: BLOOD AM [facility] No comment enter ed. Ordering Provid er: MERNA DOWD Report Released Date/Time: Feb 07, 2021 10:02 AM Reporting Lab: [facility] [address] [facility] [address] Performing Lab: [facility] [place] [facility] [address] [facility] [address] WBC 5.0 4.5-11.0 RBC 5.18 4.23-5.66 HGB 15.2 12.8-17 HEMATOCRIT 48.7 39.2-50.4 MCV 94.0 82-99 MCH 29.3 26.2-32.6 MCHC 31.2 30.8-35.1 PLT 190 140-360 MPV 10.8 9.2-12.4 RDW 14.3 12.0-16.0 Aug 05, 2021 [place] CREATININE WITH eGFR Specimen T ype: PLASMA 09:09 AM [facility] PANEL Comment: Tests performed on [employer] (799) SN:[id number] Ordering Provid er: MERNA DOWD Report Released Date/Time: Feb 07, 2021 10:02 AM Reporting Lab: [place] [facility] [address] [facility] [address] Performing Lab: [place] [facility] [address] [facility] [address] CREATININE 1.29 0.5-1.5 eGFR 54 L >60 Social History: Smoking Status (Most current) and Tobacco Use (All prior to encounter date) This section includes the most current, and the historical, smoking and tobacco-related health factors from the NE facility where the Encounter took place.Current Smoking Status This section includes the most current smoking, or tobacco-related health factor, from the NE facility where the Encounter took place. Date/Time Current Smoking Status Comment Facility May 28, 2020 02:23 PM VA-TOBACCO FORMER USER [place] [facility] Tobacco Use History This section includes a history of the smoking, or tobacco- related health factors, that were collected on or before the date of the Encounter. The data comes from the NE facility where the Encounter took place. Date/Time Smoking Status/Tobacco Use Comment [facility] May 28, 2020 02:23 PM VA-TOBACCO QUIT 15 YRS OR [place] MORE [facility] Dec 29, 2018 03:56 PM VA-TOBACCO FORMER USER [place] [facility] Dec 29, 2018 03:56 PM VA-TOBACCO QUIT 5 TO < 15 [place] YRS [facility] Sep 04, 2015 08:54 PM QUIT TOBACCO USE > 7 YEARS [place] AGO [facility] Jul 31, 2005 02:57 PM H[place]ORY OF SMOKING [place] Pt. quit 25 years ago. [facility] Jul 30, 2004 02:24 PM HISTORY OF SMOKING [place] Pt. quit about 30 years ago. [facility] Jan 16, 2004 09:21 AM QUIT TOBACCO USE > 7 YEARS [place] AGO 30 years ago [facility] Jun 20, 2003 01:47 PM HISTORY OF SMOKING [place] Pt. quit 25 years ago. [facility] Jun 08, 2002 02:23 PM H[place] OF SMOKING [place] [facility] Jun 09, 2001 05:10 PM HISTORY OF SMOKING [facility] Encounter Notes: All associated encounter notes This section contains the clinical notes associated to the Encounter. Date/Time Encounter Note(s) Provider Source Aug 25, 2021 08:16 EYE E & M NOTE: CAITLIN MICHELE AM LOCAL TITLE: Eye Exam Template [facility] STANDARD TITLE: EYE E & M NOTE DATE OF NOTE: AUG 25, 2021@08:16 ENTRY DATE: AUG 25, 2021@08:16:55 AUTHOR: CAITLIN MICHELE EXP COSIGNER: URGENCY: STATUS: COMPLETED NEW OR ESTABLISHED PATIENT OPHTHALMIC EX AMINATION CONSULTATION, SPECIALTY CODE OR E/M SERVICE Active Outpatient Medications (excluding Supplie s): Active Outpatient Medications Status 1) APIXABAN 5MG TAB TAKE ONE TABLET BY MOUTH KATHY RY ACTIVE TWELVE HOURS TO HELP PREVENT BLOOD CLOTS (ANTICOAGULATION) Active Non-VA Medications Status 1) Non-VA CALCIUM 500MG/VITAMIN D 200 UNT TAB 1 TABLET ACTIVE MOUTH TWICE A DAY 2) Non-VA DOXEPIN HCL 25MG CAP 25MG BY MOUTH AT BEDTIME ACTIVE 3) Non-VA LOPERAMIDE HCL 2MG CAP 2MG BY MOUTH EV TIKA DAY ACTIVE NEEDED 4) Non-VA METOPROLOL TARTRATE 50MG TAB 50MG BY M OUTH ACTIVE TWICE A DAY 5) Non-VA NIVOLUMAB INJ,SOLN INTRAVENOUS EVERY T WO ACTIVE WEEKS 6) Non-VA ONDANSETRON 4MG ORAL DISINTEGRATING TA B 4MG BY ACTIVE MOUTH EVERY FOUR HOURS NEEDED 7) Non-VA PREGABALIN 100MG ORAL CAP 100MG BY ISH TH THREE ACTIVE TIMES A DAY 8 Total Medications Allergies/Adverse Reactions: SULFAMETHOXAZOLE, PENICILLIN, INFLUENZA HGB A1C: 5.5 (06/30/17 09:31) GLU: 87 (04/17/21 10:44) BUN: 19 (04/17/21 10:44) B/P: 155/80 (04/17/2021 10:10) BODY MASS INDEX - APR 17, 2021@10:04:07 23.0 Active problems - Computerized Problem List is t he source for the followin. History of non-small cell malignant neoplasm of lung 2. History of venous thrombosis 3. Coagulation disorder 4. 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 Superficial phlebitis (SNOMED CT 7949667) 6. Acute sinusitis 7. Family History of Malignant Neoplasm of [place] [address] 8. Subjective tinnitus 9. Health Maintenance 10. Enlarged prostate (SNOMED CT 961948259) 11. Sensorineural Hearing Loss, Bilateral 12. Chronic atrial fibrillation (SNOMED [place] 6[address] 9004) 13. Long-term current use of anticoagulant ([facility] ED CT [id number]) 81 year old WHITE MALE, EST patient CHIEF COMPLAINT AND HISTORY OF PRESENT ILLNESS ( HPI): Neurological and Psychiatric Status: Orientation : Oriented to person, time, place Mood and Affect: normal, no agitation, no anxiety, no depressive behaviors in clinic OCULAR HISTORY: [-] Eye Trauma: [-] Surgery: [-] Eye Pain: [-] Head Trauma: other: SOCIAL HISTORY: [-] tobacco: [-] alcohol: [-] drives car: Other: FAMILY HISTORY: [-] glaucoma: [-] blindness: [-] macular degeneration: Other: VISUAL ACUITY (with correction) OD: 20/20-1 PH: OS: 20/40-2 PH: 30-2 OCULAR MOTILITY (EOM): Full without dipl opia or pain OU, pursuits and saccades intact OU CONFRONTATION VIS KERN: full to finger countin g OD & OS PUPILS: PERRLA, NO APD PRESENT OU COVER TEST (without correction) DIST: NEAR: ORBITS/ADNEXA: Normal OU ANTERIOR SEGMENT AND SLIT LAMP EXAM: Lids/Lashes: OD: clear OS: clear Scleral and Conjunctiva: OD: white and quiet OS: white and quiet Cornea: OD: clear without staining OS: clear without staining Anterior Chamber: clear and free of cells or fl are OU Von Estevan Angle estimation: OD: OS: Iris: normal/intact OU/ no neovascularization p resent ou Tonometry: iCare OD 10 OS 9 Time: 0840 DILATION OU: @ 0845 PATIENT EDUCATED ON SIDE EFFECTS OF DILATION PRIOR TO DROP INSTILLATION. SIDE EFFECT DISCUSSED INCLUDE LIGH T SENSITIVITY AND BLURRED VISION AT NEAR. 1 gtt 1% Tropicamide 1 gtt 2.5% Phenylephrine INTERNAL EYE EXAMINATION BY SLIT LAMP, FUNDUSCOP Y AND BINOCULAR INDIRECT OPHTHALMOSCOPE: Lens: OD: CLEAR OS: CLEAR Vitreous: OD: syneresis present OS: syneresis present Nerve: RIM INTACT AND WITHOUT FOCAL DEFECTS OR PALLOR OU OD C/D: OS C/D: Macula: Even pigment, NO macular edema OU OD: OS: Vessels: Normal course and caliber OU OD: OS: Mid-peripheral and Peripheral Retina: Flat and intact 360 degrees OU OD: OS: PROCEDURE NOTE: LEFT EYE EYDELA INJECTION, LOT #[id number] , EXPI RES 09/2022 ABX: TOPICAL 5% betadine ANESTHESIA: TOPICAL, 4% LIDO AND TETRA, TOPICAL PT PREPPED WITH IODINE SWAB SPECULUM PLACED, INJECTION MADE TEMPORALLY 3.5mm FROM [place] NO COMPLICATIONS, GOOD PERFUSION AT END post injection: EXCELLENT PERFUSION, NO HEME ASSESSMENT/PLAN 1. 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 First Series of anti- VEGF injections: OS-s/p Lucentis 09/06/12 ([place]), [place]ast[place]), [place] Lucentis 12/02/12 [place] s/p Lucentis 01/2013 at [facility]/Dr. Bashir. -2013 OCT showed full resolution of ME: Was stab le until 01/2019; -DFE 01/2019 OS showed scattered blot hemes and p eripapillary CWS, symptoms re-appeared - apparent BRVO/re-clotting of shunt vessels. Second series of anti VEGF injns: With ME thick- worsening- decision made to begin treatment 01/2019. -Eylea Injection OS [facility] #1 02/24/2019 Post Hiatus for 5 years #2 07/07/2019 -Eylea Injection OS [place] (Dr. Abdulkadir carvajal MD) #3 10/10/2019 #4 ~11/21/2019 -Eylea Injection OS [facility] #5 03/27/2020 #6 06/24/2020 *NO INJN 08/2020 #7 10/18/2020 #8 12/09/2020 *NO INJN 01/2021 #9 03/03/2021 #10 06/13/2021 #11 08/25/2021 On 05/20/2020, at 7 weeks after 03/2020 inj'n ther e was NO macular edema & overall dry appearance; brought back at 11 weeks and found ME re- accumulating: Tried 9 week interval- on return 1 OCT was dry- skipped injection; RTC ~8 weeks- Assess. -Patient noted vision decline few days after appt; at 8 weeks when he was dry. At that time, felt that he maria m ot go longer than 8 weeks between injections. 02-07-2021 Dry at 8 weeks post b injn, tried aga in to extend- at 11 weeks, on 03/03/2021 there was extensive inferior ME. Return to clinic, 8-10 weeks, maximum 10 weeks. 06/13/2021 MAC OCT shows significantly increased ME OS after 03/03/21 injection (~14 week interval) 08/25/2021 AC OCT only mild ME inferiorly, impro gabe since last visit. Good interval 10-11weeks. Leaving for [place] in early Sep, will inject today. - Pt reequesting a new pair of DVO specs before leaving for [place], will place order today. 2. Has Stage 4 lung CA - immunotherapy treatment s extremely successful, but had side effects- Colitis. Did not go to [place] in *Patient's secondary cardiac & stroke complications* Mr Castro goes away in ~2 weeks, returns in Jan Goes to Dr Abdulkadir Valenzuela in [place] RTC ORDER: -AW: early January 2022 for DFE, OCT Mac, likely I njn OS -OPTOM: Sched for 11/11/[address] [facility] Dr Beasley - will need to reschedule since going to be in [place]. Total time spent during this encounter, includin g [id number] and non-face time, was 30 min /es/ CAITLIN MICHELE MD Signed: 08/25/2021 09:32
--- OUTSIDE RECORDS SUMMARY | 2022-07-17 12:29 | XMS_ITS | Encounter Summary ---
:1940 Author Organization Department [facility] rs Address [address] [place] [id number] Support Name Relationship Address Phone BLAS CASTRO Unavailable [phone] [place] [address] BLAS CASTRO Unavailable [phone] [facility] [place] [address] THEA CASTRO Unavailable [address] [place] [address] Insurance Providers: All historical and current Section [...] [place] PREFERRED STAND Jun 01, [id number] [phone] CHERIE PERN,A PATIENT (FEDERAL) PROVIDER MACY 2006 70 7 RNOLD ORGANIZAT FAMIL ION (PPO) Y 105 BCBS OF PREFERRED STAND Nov 01, [id number] [phone] HALPER N,A PATIENT MASS FEP PROVIDER MACY 2004 70 6 RNOLD ORGANIZAT FAMIL ION (PPO) Y BCBS OF DENTAL STAND Nov 01, DENTAL [id number] [phone] MATTHEW,A PATIENT MASS FEP INSURANCE MACY 2004 70 6 RNOLD DENTAL [place] OF [place] PREFERRED STAND Nov 01, 104 [id number] [phone] CHERIE PERN,A PATIENT FEDERAL PROVIDER MACY 2020 70 4 RNOLD ORGANIZAT SELF ION (PPO) [place] PREFERRED STAND Nov 01, 105 [id number] [phone] CHERIE PERN,A PATIENT FEDERAL PROVIDER MACY 2005 70 4 RNOLD ORGANIZAT FAMIL ION (PPO) Y CAREMARK PRESCRIPT FEP Nov 02, [id number] [phone] HALP GURJIT,A PATIENT ([id number]) ION 2011 0 70 7 RNOLD CAREMARK PRESCRIPT CAREM Nov 01, [id number] [phone] HALP GURJIT,A PATIENT FEP BCBS ION ARK 2011 0 70 1 RNOLD FEPRX PLAN CAREMARK-F PRESCRIPT BCBS Nov 01, [id number] [phone] QUIÑONES LPERN,A PATIENT EP BCBS ION FEP 2011 0 [id number] RNOLD PLAN MEDICARE MEDICARE PART Jun 01, PART B [id number] [id number] HALPER N,A PATIENT (WNR) (M) B 2006 [id number] 2 RNOLD MEDICARE MEDICARE PART Jun 01, PART B [id number] HALPER N,A PATIENT (WNR) (M) B 2006 [id number] 2 OLD MEDICARE MEDICARE PART Jun 01, PART A [id number] HALPER N,A PATIENT (WNR) (M) A 2006 XF33 2 RNOLD MEDICARE MEDICARE PART Jun 01, PART A [id number] HALPER N,A PATIENT (WNR) (M) A 2006 [id number] 00 RNOLD MEDICARE MEDICARE PART Jun 01, PART B [id number] HALPER N,A PATIENT (WNR) (M) B 2006 38A 00 RNOLD MEDICARE MEDICARE PART Jun 01, PART A [id number] HALPER N,A PATIENT (WNR) (M) A 2006 [id number] 00 RNOLD MEDICARE MEDICARE PART Jun 01, PART B [id number] HALPER N,A PATIENT (WNR) (M) B 2006 [id number] 00 RNOLD MEDICARE MEDICARE PART Jun 01, PART A [id number] HALPER N,A PATIENT (WNR) (M) A 2006 38A 2 RNOLD MEDICARE MEDICARE PART Jun 01, PART B [id number] HALPER N,A PATIENT (WNR) (M) B 2006 38A 2 RNOLD MEDICARE MEDICARE PART Jun 01, PART A [id number] Chetan DAVID PATIENT (WNR) (M) Chetan 2006 [id number] 2 RNELVIS Selected Encounter This section includes the information on record at [place] for the Encounter. 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 Date/Time Primary/Secondary Diagnosis Name Provider Source Diagnosis Aug 07, 2021 PRIMARY FDC (current) ANGELA PETERSON 03:00 PM use of [place] [facility] anticoagulants Plan of Treatment: Future Appointments (+ 6 months) and Future Tests (+/- 45 days) The Plan of Treatment section includes future care activities for the patient from all [place] treatmentfacilities. This section includes future appointments and future orders which are active, pending orscheduled.Future Appointments This section includes appointments that were scheduled to occur 6 months from the date of the Encounter, up to a maximum of 20 appointments. The data comes from all [place] treatment facilities. Appointment Date/Time Appointment Type Appointment Facili ty Name Aug 25, 2021 08:30 AM AMBULATORY - SURGERY [place] [facility] Nov 28, 2021 10:30 AM AMBULATORY - SURGERY [place] [facility] Lab Results: +/- 30 days of the encounter This section includes the Chemistry and Hematology Lab Results on record with [place] for the patient. Radiology Reports and Pathology Reports are provided separately, in subsequent sections.Lab Results This section contains the Chemistry/Hematology Results that were resulted 30 days before or 30 daysafter the date of the Encounter. Date/Time Source Result Type Result - Unit Interpretation Reference Range Comment Aug 05, 2021 09:09 AM [place] [facility] ALT(SGPT) Sp ecimen Type: PLASMA Comment: Tests performed on [employer] (405) [id number] Ordering Provid er: MERNA DOWD Report Released Date/Time: Feb 07, 2021 10:02 AM Reporting Lab: [place] [facility] [address] [facility] [address] Performing Lab: [place] [facility] [address] [facility] [address] ALT(SGPT) 15 7-52 Aug 05, 2021 09:09 AM [place] [facility] AST(SGOT) Sp ecimen Type: PLASMA Comment: Tests performed on [employer] (405) [id number] Ordering Provid er: MERNA DOWD Report Released Date/Time: Feb 07, 2021 10:02 AM Reporting Lab: [place] [facility] [address] [facility] [address] Performing Lab: [place] [facility] [address] [facility] [address] AST(SGOT) 19 5-34 Aug 05, 2021 [place] CREATININE WITH eGFR Specimen T ype: PLASMA 09:09 [facility] PANEL Comment: Tests performed on [employer] (405) [id number] Ordering Provid er: MERNA DOWD Report Released Date/Time: Feb 07, 2021 10:02 AM Reporting Lab: [place] [facility] [address] [facility] [address] Performing Lab: [place] [facility] [address] [facility] [address] CREATININE 1.29 0.5-1.5 eGFR 54 L >60 Aug 05, 2021 09:09 [place] CBC NO DIFF Specimen Typ e: BLOOD [facility] No comment enter ed. Ordering Provid er: MERNA DOWD Report Released Date/Time: Feb 07, 2021 10:02 AM Reporting Lab: [place] [facility] [address] [facility] [address] Performing Lab: [place] [facility] [address] [facility] [address] WBC 5.0 4.5-11.0 RBC 5.18 4.23-5.66 HGB 15.2 12.8-17 HEMATOCRIT 48.7 39.2-50.4 MCV 94.0 82-99 MCH 29.3 26.2-32.6 MCHC 31.2 30.8-35.1 PLT 190 140-360 MPV 10.8 9.2-12.4 RDW 14.3 12.0-16.0 Social History: Smoking Status (Most current) and Tobacco Use (All prior to encounter date) This section includes the most current, and the historical, smoking and tobacco-related health factors from the [place] facility where the Encounter took place.Current Smoking Status This section includes the most current smoking, or tobacco-related health factor, from the [place] facility where the Encounter took place. Date/Time Current Smoking Status Comment Facility May 28, 2020 02:23 PM VA-TOBACCO QUIT 15 YRS OR MORE [place] [facility] Tobacco Use History This section includes a history of the smoking, or tobacco- related health factors, that were collected on or before the date of the Encounter. The data comes from the [place] facility where the Encounter took place. Date/Time Smoking Status/Tobacco Use Comment [facility] May 28, 2020 02:23 PM VA-TOBACCO QUIT 15 YRS OR [place] MORE [facility] Dec 29, 2018 03:56 PM VA-TOBACCO FORMER USER [place] [facility] Dec 29, 2018 03:56 PM VA-TOBACCO QUIT 5 TO < 15 [place] YRS [facility] Sep 04, 2015 08:54 PM QUIT TOBACCO USE > 7 YEARS [place] AGO [facility] Jul 31, 2005 02:57 PM HISTORY OF SMOKING [place] Pt. quit 25 years ago. [facility] Jul 30, 2004 02:24 PM H[place]ORY OF SMOKING [place] Pt. quit about 30 years ago. [facility] Jan 16, 2004 09:21 AM QUIT TOBACCO USE > 7 YEARS [place] AGO 30 years ago [facility] Jun 20, 2003 01:47 PM H[place]ORY OF SMOKING [place] Pt. quit 25 years ago. [facility] Jun 08, 2002 02:23 PM H[place]ORY OF SMOKING [place] [facility] Jun 09, 2001 05:10 PM H[place]ORY OF SMOKING [place] [facility] Encounter Notes: All associated encounter notes This section contains the clinical notes associated to the Encounter. Date/Time Encounter Note(s) Provider Source Aug 07, 2021 08:49 AM E & M OF ANTICOAGULATION NOTE: Amarilis PETERSON [place] LOCAL TITLE: Anticoagulation Clinic/Military Technology Specialist [facility] STANDARD TITLE: E & M OF ANTICOAGULATION NOTE DATE OF NOTE: AUG 07, 2021@08:49 ENTRY DATE: AUG 07, 2021@08:49:18 AUTHOR: HIREN PETERSON COSIGNER: URGENCY: STATUS: COMPLETED MR. KAYODE CASTRO [address] [place] [id number] Purpose of visit: Follow-up anticoagulation clin ic visit Time spent with patient during this visit: 15 mi nutes Subjective/Objective information: Active Outpatient Medications (excluding Supplie s): Active [...] HCL 2MG CAP 2MG BY MOUTH EV DAY ACTIVE NEEDED 4) Non-VA METOPROLOL TARTRATE 50MG TAB 50MG BY M OUTH ACTIVE TWICE A DAY 5) Non-VA NIVOLUMAB INJ,SOLN INTRAVENOUS EVERY T WO ACTIVE WEEKS 6) Non-VA ONDANSETRON 4MG ORAL DISINTEGRATING TA B 4MG BY ACTIVE MOUTH EVERY FOUR HOURS NEEDED 7) Non-VA PREGABALIN 100MG ORAL CAP 100MG BY ISH THREE ACTIVE TIMES A DAY 8 Total Medications [ ] Medication reconciliation completed, any dif ferences are listed below: Factors affecting anticoagulation: Medication change none Alcohol change none Acute illness none Medication compliance denies missing doses Bleeding/thromboembolic complications: Bruising denies Gingival bleeding denies Nosebleeds denies Hematuria denies Blood in stools denies Signs of CVA/TIA denies LE swelling/pain denies Shortness of breath denies Other side effects: denies Falls/injuries denies Tests/Procedures none Other issues: Indication for anticoagulation: atrial fibrillat ion s/p DVT and/or PE 2014 lung cancer Anticoagulation initiated: 09/2015 (VKA -> LMWH) , 07/2020 (LMWH->DOAC) 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 Plan: Continue current anticoagulation regimen DOAC Regimen: apixaban 5mg Q12H Future follow-up: 6 months Patient Education: [X] s/sx bleeding/thrombosis and ER precautions [X] importance of correct dose/dosing schedule [X] importance of medication compliance [X] importance of reporting medication changes, planned procedures, change in health care statu s to clinic [x] TC to patient/spouse/caregiver who was able to verbalize understanding of above instructions. [ ] Voice mail left for patient with instruction s [ ] Written instructions mailed to patient [ ] Rx ordered [ ] Rx/Lab orders faxed to: RUSZULA Brody Pharmacotherapy Rem V11: PHARMACIST INTERVENTIONS: ANTICOAGULATION THERAPY DIRECT ORAL ANTICOAGULANT (DOAC) MANAGEMENT Medication monitoring, no dosage change require d, continue to monitor and assess /ivy/ HIREN PETERSON PHARM.D Clinical Pharmacist Signed: 08/07/2021 14:40
--- OUTSIDE RECORDS SUMMARY | 2022-07-17 12:30 | XMS_ITS | Encounter Summary ---
:1940 Author Organization Department [facility] rs Address [address] [place] [address] Support Name Relationship Address Phone BLAS CASTRO Unavailable [address] [facility] [place] [address] THEA CASTRO Unavailable [address] [place] [address] Insurance Providers: All historical and current Section [...] [place] PREF[place] Jun 01, [id number] [phone] CHERIE PERN,A PATIENT (FEDERAL) PROVIDER MACY 2006 70 7 RNOLD ORGANIZAT FAMIL ION (PPO) Y 105 BCBS OF PREFERRED STAND Nov 01, [id number] [phone] HALPER N,A PATIENT MASS FEP PROVIDER MACY 2004 70 6 RNOLD ORGANIZAT FAMIL ION (PPO) Y BCBS OF DENTAL STAND Nov 01, DENTAL [id number] [phone] MATTHEW,A PATIENT MASS FEP INSURANCE MACY 2004 70 6 RNOLD DENTAL [place] PREFERRED STAND Nov 01, [id number] [phone] CHERIE PERN,A PATIENT FEDERAL PROVIDER MACY 2020 70 4 RNOLD ORGANIZAT SELF ION (PPO) [place] OF [place] PREFERRED [place] Nov 01, 105 [id number] [phone] CHERIE PERN,A PATIENT FEDERAL PROVIDER MACY 2004 70 4 RNOLD ORGANIZAT FAMIL ION (PPO) Y CAREMARK PRESCRIPT FEP Nov 02 [id number] [phone] HALP GURJIT,A PATIENT ([id number]) ION 2011 0 70 7 RNOLD CAREMARK PRESCRIPT CAREM Nov 01, [id number] [phone] HALP GURJIT,A PATIENT FEP BCBS ION ARK 2011 0 70 1 RNOLD FEPRX PLAN CAR[place]ARK-F PRESCRIPT BCBS Nov 01, [id number] [phone] QUIÑONES LPERN,A PATIENT EP BCBS ION FEP 2011 0 [id number] 331 RNOLD PLAN MEDICARE MEDICARE PART Jun 01, PART A [id number] [phone] HALPER N,A PATIENT (WNR) (M) A 2006 38A 00 RNOLD MEDICARE MEDICARE PART Jun 01, PART B [id number] [phone] HALPER N,A PATIENT (WNR) (M) B 2006 38A 00 RNOLD MEDICARE MEDICARE PART Jun 01, PART A [id number] [id number] HALPER N,A PATIENT (WNR) (M) A 2006 [id number] 00 RNOLD MEDICARE MEDICARE PART Jun 01, PART B [id number] [phone] HALPER N,A PATIENT (WNR) (M) B 2006 [id number] 00 RNOLD MEDICARE MEDICARE PART Jun 01, PART A [id number] [id number] HALPER N,A PATIENT (WNR) (M) A 2006 XF33 2 RNOLD MEDICARE MEDICARE PART Jun 01, PART B [id number] [id number] HALPER N,A PATIENT (WNR) (M) B 2006 XF33 2 RNOLD MEDICARE MEDICARE PART Jun 01, PART A [id number] [id number] HALPER N,A PATIENT (WNR) (M) A 2006 38A 2 RNOLD MEDICARE MEDICARE PART Jun 01, PART B [id number] [phone] HALPER N,A PATIENT (WNR) (M) B 2006 38A 2 RNOLD MEDICARE MEDICARE PART Jun 01, PART A [id number] [phone] HALPER N,A PATIENT (WNR) (M) A 2006 XF33 2 RNOLD MEDICARE MEDICARE PART Jun 01, PART B [id number] HALPER N,A PATIENT (WNR) (M) B 2006 [id number] 2 RNOLD Selected Encounter This section includes the information on record at [place] for the Encounter. Date/Time Encounter Type Encounter Reason Provider Source Description Nov 28, 2021 OFFICE O/P EST OPHTHALMOLOGY ICD-10-CM CAITLIN MICHELE 10:30 AM MOD 30-39 MIN H34.8320 Trib WEBB rtnl vein occlusion, left eye, with macular edema with Provider Comments: Tributary (branch) retinal vein occlusion, left eye, with macular edema IHE Encounter Template Text not used by [facility] Assessments - Encounter Diagnoses This section includes the primary and secondary diagnoses documented for the Encounter. 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 This section includes future appointments and future orders which are active, pending orscheduled.Future Appointments This section includes appointments that were scheduled to occur 6 months from the date of the Encounter, up to a maximum of 20 appointments. The data comes from all [place] treatment facilities. Appointment Date/Time Appointment Type Appointment Facili ty Name Feb 09, 2022 09:30 AM AMBULATORY - [place] [facility] Feb 09, 2022 12:30 PM AMB[facility]ORY - SURG[place] [facility] Feb 09, 2022 02:30 PM [place] [facility] Feb 16, 2022 08:30 AM [facility] Feb 19, 2022 10:30 AM [facility] Feb 19, 2022 10:45 AM [facility] - [facility] Feb 20, 2022 02:00 PM [place]ORY [place]ICINE [place] [facility] Apr 16, 2022 08:30 AM [facility] - SUR[facility]ERY [place] [facility] Social History: Smoking Status (Most current) and Tobacco Use (All prior to encounter date) This section includes the most current, and the historical, smoking and tobacco-related health factors from the [place] facility where the Encounter took place.Current Smoking Status This section includes the most current smoking, or tobacco-related health factor, from the [place] facility where the Encounter took place. Date/Time Current Smoking Status Comment Facility May 28, 2020 02:23 PM [place]-TOBACCO FORMER USER [place] [facility] Tobacco Use History This section includes a history of the smoking, or tobacco- related health factors, that were collected on or before the date of the Encounter. The data comes from the [place] facility where the Encounter took place. Date/Time Smoking Status/Tobacco Use Comment [facility] May 28, 2020 02:23 PM VA-TOBACCO QUIT 15 YRS OR [place] MORE [facility] Dec 29, 2018 03:56 PM VA-TOBACCO FORMER USER [place] [facility] Dec 29, 2018 03:56 PM VA-TOBACCO QUIT 5 TO < 15 [place] YRS [facility] Sep 04, 2015 08:54 PM QUIT TOBACCO USE > 7 YEARS [place] AGO [facility] Jul 31, 2005 02:57 PM H[place] OF SMOKING [place] Pt. quit 25 years ago. [facility] Jul 30, 2004 02:24 PM H[place] SMOKING [place] Pt. quit about 30 years ago. [facility] Jan 16, 2004 09:21 AM QUIT TOBACCO USE > 7 YEARS [place] AGO 30 years ago [facility] Jun 20, 2003 01:47 PM H[place]ORY OF SMOKING [place] Pt. quit 25 years ago. [facility] Jun 08, 2002 02:23 PM H[place]ORY OF SMOKING [place] [facility] Jun 09, 2001 05:10 PM H[place]ORY OF SMOKING [place] [facility] Encounter Notes: All associated encounter notes This section contains the clinical notes associated to the Encounter. Date/Time Encounter Note(s) Provider Source Nov 28, 2021 08:11 EYE E & M NOTE: [place]LIN [place]HELE [place] AM LOCAL TITLE: Eye Exam Template [facility] STANDARD TITLE: EYE E & M NOTE DATE OF NOTE: NOV 28, 2021@08:11 ENTRY DATE: NOV 28, 2021@08:11:54 AUTHOR: CAITLIN MICHELE EXP COSIGNER: URGENCY: STATUS: COMPLETED NEW OR ESTABLISHED PATIENT OPHTHALMIC EXAMINATIO N CONSULTATION, SPECIALTY CODE OR E/M SERVICE Active [...] Non-VA PREGABALIN 100MG ORAL CAP 100MG BY IHS TH THREE ACTIVE TIMES A DAY 8 [...] upper lobe of pebbles g (SNOMED CT [id number]) 5. Superficial phlebitis (SNOMED CT 7026497) 6. Acute sinusitis 7. Family History of Malignant Neoplasm of [place] st 8. Subjective tinnitus 9. Health Maintenance 10. Enlarged prostate (SNOMED CT 428598213) 11. Sensorineural Hearing Loss, Bilateral 12. Chronic atrial fibrillation (SNOMED CT 9[address] 9004) 13. Long-term current use of anticoagulant (SNOM ED CT 479130227) 81 year old WHITE MALE, EST patient [...] ACUITY (with correction) OD: 20/20-1 PH: OS: 20/40-1 PH: 20/20-2 OCULAR MOTILITY (EOM): Full without diplopia or pain OU, pursuits and saccades intact [...] neovascularization p resent ou Tonometry: iCare OD 13 OS 14 Time: 1040 DILATION OU: @ 1040 PATIENT EDUCATED ON SIDE EFF ECTS OF DILATION PRIOR TO DROP INSTILLATION. SIDE EFFECT DISCUSSED INCLUDE LIGHT SENSITIVITY AND BLURRED VISION AT NEAR. 1 [...] OU OD: OS: PROCEDURE NOTE: LEFT EYE EYLEA INJECTION, LOT #[id number] , EXPI RES 08/2022 ABX: TOPICAL 5% betadine ANESTHESIA: TOPICAL, 4% LIDO AND TETRA, TOPICAL PT PREPPED WITH IODINE SWAB SPECULUM PLACED, INJECTION MADE TEMPORALLY 3.5mm FROM [place] NO COMPLICATIONS, GOOD PERFUSION AT END post injection: EXCELLENT PERFUSION, NO HEME ASSESSMENT/PLAN 1. 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 First Series of anti- VEGF injections: OS-s/p Lucentis 09/06/12 ([facility]), s/[place] Avastin ([place]), s/[place] Lucentis 12/02/12 ([place]), s/p Lucentis 01/2013 at [facility]/Dr. Bashir. -2013 OCT showed full resolution of ME: Was stab le until 01/2019; -DFE 01/2019 OS showed scattered blot hemes and p eripapillary CWS, symptoms re-appeared - apparent BRVO/re-clotting of shunt vessels. Second series of anti VEGF injns: With ME thick- worsening- decision made to begin treatment 01/2019. -Eylea Injection OS [facility] #1 02/24/2019 Post Hiatus for 5 years #2 07/07/2019 -Eylea Injection OS [place] (Dr. Abdulkadir carvajal MD) #3 10/10/2019 #4 ~11/21/2019 -Eylea Injection OS [facility] #5 03/27/2020 #6 06/24/2020 *NO INJN 08/2020 #7 10/18/2020 #8 12/09/2020 *NO INJN 01/2021 #9 03/03/2021 #10 06/13/2021 #11 08/25/2021 #12 11/28/2021 On 05/20/2020, at 7 weeks after 03/2020 [...] injections. 02-07-2021 Dry at 8 weeks post Dec injn, tried aga in to extend- at 11 weeks, on 03/03/2021 there was extensive inferior ME. Return to clinic, 8-10 weeks, maximum 10 weeks. 06/13/2021 MAC OCT shows significantly increased ME OS after 03/03/21 injection (~14 week interval) 08/25/2021 MAC OCT only mild ME inferiorly, impr abram since last visit. Good interval 10-11weeks. Leaving for [place] in early Sep, will inject today. - Pt reequesting a new pair of DVO specs before leaving for [place], will place order today. 11/28/2021 MAC OCT shows significant inc rease in edema, ~3 month interval from previous injection. Will continue to follow at 1 0-11 weeks. 2. Has Stage 4 lung CA - immunotherapy treatment s extremely successful, but had side effects- Colitis. Did not go to [place] in [phone] *Patient's secondary cardiac & stroke complications* [place] [id number] Abdulkadir Valenzuela in [place] RTC ORDER: -AW: Already scheduled for February 09, 2022 for DF E, OCT Mac, likely Injn OS Total time spent during this encounter, includin g [id number] and non-face time, was 40 min /es/ CAITLIN MICHELE MD Signed: 11/28/2021 11:52
--- OUTSIDE RECORDS SUMMARY | 2022-07-17 12:30 | XMS_ITS | Encounter Summary ---
:1940 Author Organization [facility] rs Address [address] [place] [id number] Support Name Relationship Address Phone BLAS CASTRO Unavailable [phone] [place] [address] BLAS CASTRO Unavailable [phone] [facility] [place] [address] THEA CASTRO Unavailable [address] [place] [address] Insurance Providers: All historical and current Section [...] [place]REF[place] Jun 01 [id number] [phone] CHERIE PERN,A PATIENT (FEDERAL) PROVIDER MACY 2006 70 7 RNOLD ORGANIZAT FAMIL ION (PPO) Y 105 BCBS OF PREFERRED STAND Nov 01 [id number] [phone] HALPER N,A PATIENT MASS FEP PROVIDER MACY 2004 70 6 RNOLD ORGANIZAT FAMIL ION (PPO) Y BCBS OF DENTAL STAND Nov 01, DENTAL [id number] [phone] MATTHEW,A PATIENT MASS FEP INSURANCE MACY 2004 70 6 RNOLD DENTAL [place] PREFERRED STAND Nov 01, [id number] [phone] CHERIE PERN,A PATIENT FEDERAL PROVIDER MACY 2020 70 4 RNOLD ORGANIZAT SELF ION (PPO) [place] PREF[place] Nov 01, [id number] [phone] CHERIE PERN,A PATIENT FEDERAL PROVIDER MACY 2005 70 4 RNOLD ORGANIZAT FAMIL ION (PPO) Y CAREMARK PRESCRIPT FEP Nov 02, [id number] [phone] HALP GURJIT,A PATIENT ([id number]) ION 2011 0 70 7 RNOLD CAREMARK PRESCRIPT CAREM Nov 01, [id number] [phone] HALP GURJIT,A PATIENT FEP BCBS ION ARK 2011 0 70 1 RNOLD FEPRX PLAN [place]ARK-F PRESCRIPT BCBS Nov 01, [id number] [phone] QUIÑONES LPERN,A PATIENT EP BCBS ION FEP 2011 0 [id number] 331 RNOLD PLAN MEDICARE MEDICARE PART Jun 01, PART B [id number] [id number] HALPER N,A PATIENT (WNR) (M) B 2006 [id number] 2 RNOLD MEDICARE MEDICARE PART Jun 01, PART A [id number] [phone] HALPER N,A PATIENT (WNR) (M) A 2006 [id number] 2 RNOLD MEDICARE MEDICARE PART Jun 01, PART B [id number] [id number] HALPER N,A PATIENT (WNR) (M) B 2006 [id number] 2 RNOLD MEDICARE MEDICARE PART Jun 01, PART A [id number] HALPER N,A PATIENT (WNR) (M) A 2006 [id number] 00 RNOLD MEDICARE MEDICARE PART Jun 01, PART B [id number] HALPER N,A PATIENT (WNR) (M) B 2006 38A 00 RNOLD MEDICARE MEDICARE PART Jun 01, PART A [id number] [phone] HALPER N,A PATIENT (WNR) (M) A 2006 [id number] 00 RNOLD MEDICARE MEDICARE PART Jun 01, PART B [id number] HALPER N,A PATIENT (WNR) (M) B 2006 [id number] 00 RNOLD MEDICARE MEDICARE PART Jun 01, PART A [id number] HALPER N,A PATIENT (WNR) (M) A 2006 38A 2 RNOLD MEDICARE MEDICARE PART Jun 01, PART B [id number] [phone] HALPER N,A PATIENT (WNR) (M) B 2006 38A 2 RNOLD MEDICARE MEDICARE PART Jun 01, PART A [id number] [id number] Chetan DAVID PATIENT (AMARILYS) (M) A 2006 [id number] 2 RNOLD Selected Encounter This section includes the information on record at [place] for the Encounter. Date/Time Encounter Type Encounter Reason Provider Source Description Feb 09, 2022 [facility] OPHTHALMOLOGY ICD-10-CM CAITLIN MICHELE 12:30 PM INJECTION H34.8320 Trib JON rtnl vein occlusion, left eye, with macular edema with Provider Comments: Trib rtnl vein occlusion, left eye, with macular edema IHE Encounter Template Text not used by [facility] Assessments - Encounter Diagnoses This section includes the primary and secondary diagnoses documented for the Encounter. 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 This section includes future appointments and future orders which are active, pending orscheduled.Future Appointments This section includes appointments that were scheduled to occur 6 months from the date of the Encounter, up to a maximum of 20 appointments. The data comes from all [place] treatment facilities. Appointment Date/Time Appointment Type Appointment Facili ty Name Feb 16, 2022 08:30 AM AM[facility]UL[facility]ORY - MED[facility]INE [facility] Feb 19, 2022 10:30 AM [facility] Feb 19, 2022 10:45 AM [facility] Feb 20, 2022 02:00 PM [facility] [place] [facility] Apr 16, 2022 08:30 AM [facility] [place] [facility] Jun 12, 2022 08:30 AM [facility] [place] [facility] Jun 12, 2022 11:00 AM AMBULATORY - REHAB MEDICINE ANDRES Cabrera [facility] 2022 09:00 AM [facility] - MED[facility]INE [facility] Lab Results: +/- 30 days of the encounter This section includes the Chemistry and Hematology Lab Results on record with [place] for the patient. Radiology Reports and Pathology Reports are provided separately, in subsequent sections.Lab Results This section contains the Chemistry/Hematology Results that were resulted 30 days before or 30 daysafter the date of the Encounter. Date/Time Source Result Type Result - Unit Interpretation Reference Range Comment Feb 19, 2022 [facility] CREATININE WITH eGFR Specimen Type: PLASMA 10:36 AM PANEL Comment: Tests performed on Tirendo (405) [id number] Ordering Provid er: HIREN PETERSON Report Released Date/Time: Aug 07, 2021 02:40 PM Reporting Lab: [facility] [address] [address] Performing Lab: [facility] [address] [address] CREATININE 1.35 0.5-1.5 eGFR(CKD-EPI 2020) 53 L >60 Feb 19, 2022 10:36 AM [facility] CBC PROFILE Specime n Type: BLOOD No comment enter ed. Ordering Provid er: HIREN PETERSON Report Released Date/Time: Aug 07, 2021 02:40 PM Reporting Lab: [facility] [address] [address] Performing Lab: [facility] [address] [address] WBC 5.0 4.5-11.0 RBC 4.99 4.23-5.66 HGB 15.1 12.8-17 HEMATOCRIT 47.2 39.2-50.4 MCV 94.6 82-99 MCH 30.3 26.2-32.6 MCHC 32.0 30.8-35.1 PLT 183 140-360 MPV 10.4 9.2-12.4 RDW 14.4 12.0-16.0 LYMPH % 12.5 L 14.0-42.3 MONO % 13.7 5.1-13.7 NEUT % 69.4 43.7-75.8 EOS % 3.4 0.4-6.8 BASO % 0.4 0.1-2.0 IG % 0.6 0.0-0.7 NUCLEATED RED CELLS 0.0 0.0-0.0 ABSOLUTE IG 0.0 0-0.06 ABSOLUTE BASOPHILS 0.0 L 0.01-0.13 ABSOLUTE EOS. 0.2 0.03-0.44 ABSOLUTE LYMPHOCYTES 0.6 L 1.0-3.2 ABSOLUTE MONOCYTES 0.7 0.3-1.1 ABSOLUTE GRANULOCYTES 3.5 2.2-7.6 ABSOLUTE NRBC 0.00 0-0 Social History: Smoking Status (Most current) and Tobacco Use (All prior to encounter date) This section includes the most current, and the historical, smoking and tobacco-related health factors from the [place] facility where the Encounter took place.Current Smoking Status This section includes the most current smoking, or tobacco-related health factor, from the [place] facility where the Encounter took place. Date/Time Current Smoking Status Comment Facility May 28, 2020 02:23 PM VA-TOBACCO QUIT 15 YRS OR MORE [place] [facility] Tobacco Use History This section includes a history of the smoking, or tobacco- related health factors, that were collected on or before the date of the Encounter. The data comes from the [place] facility where the Encounter took place. Date/Time Smoking Status/Tobacco Use Comment [facility] May 28, 2020 02:23 PM VA-TOBACCO QUIT 15 YRS OR [place] [facility] Dec 29, 2018 03:56 PM VA-TOBACCO FORMER USER [place] [facility] Dec 29, 2018 03:56 PM VA-TOBACCO QUIT 5 TO < 15 [place] YRS [facility] Sep 04, 2015 08:54 PM QUIT TOBACCO USE > 7 YEARS [place] A[place] [facility] Jul 31, 2005 02:57 PM H[place]ORY OF SMOKING [place] Pt. quit 25 years ago. [facility] Jul 30, 2004 02:24 PM H[place] OF SMOKING [place] Pt. quit about 30 years ago. [facility] Jan 16, 2004 09:21 AM QUIT TOBACCO USE > 7 YEARS [place] A[place] 30 years ago [facility] Jun 20, 2003 01:47 PM H[place] OF SMOKING [place] Pt. quit 25 years ago. [facility] Jun 08, 2002 02:23 PM H[place] OF SMOKING [place] [facility] Jun 09, 2001 05:10 PM H[place]ORY OF SMOKING [place] [facility] Encounter Notes: All associated encounter notes This section contains the clinical notes associated to the Encounter. Date/Time Encounter Note(s) Provider Source Feb 09, 2022 08:32 EYE E & M NOTE: CAITLIN MICHELE JCClau LOCAL TITLE: Eye Exam Template [facility] STANDARD TITLE: EYE E & M NOTE DATE OF NOTE: FEB 09, 2022@08:32 ENTRY DATE: FEB 09, 2022@08:32:13 AUTHOR: CAITLIN MICHELE EXP COSIGNER: URGENCY: STATUS: COMPLETED NEW OR ESTABLISHED PATIENT OPHTHALMIC EXAMINATIO N CONSULTATION, SPECIALTY CODE OR E/M SERVICE Active Outpatient Medications (excluding Supplie s): Active Non-VA Medications Status 1) Non-VA CALCIUM 500MG/VITAMIN D 200 UNT TAB 1 TABLET ACTIVE MOUTH TWICE A DAY 2) Non-VA DOXEPIN HCL 25MG CAP 25MG BY MOUTH AT BEDTIME ACTIVE 3) Non-VA LOPERAMIDE HCL 2MG CAP 2MG BY MOUTH ACTIVE NEEDED 4) Non-VA METOPROLOL TARTRATE 50MG TAB 50MG BY M OUTH ACTIVE TWICE A DAY 5) Non-VA NIVOLUMAB INJ,SOLN INTRAVENOUS EVERY T WO ACTIVE WEEKS 6) Non-VA ONDANSETRON 4MG ORAL DISINTEGRATING TA B 4MG BY ACTIVE MOUTH EVERY FOUR HOURS NEEDED 7) Non-VA PREGABALIN 100MG ORAL CAP 100MG BY ISH TH THREE ACTIVE TIMES A DAY Allergies/Adverse Reactions: SULFAMETHOXAZOLE, PENICILLIN, INFLUENZA HGB A1C: [...] upper lobe of pebbles g (SNOMED CT 91982038) 5. Superficial phlebitis (SNOMED CT 6369647) 6. Acute sinusitis 7. Family History of Malignant Neoplasm of Deport st 8. Subjective tinnitus 9. Health Maintenance 10. Enlarged prostate (SNOMED CT 869683322) 11. Sensorineural Hearing Loss, Bilateral 12. Chronic atrial fibrillation (SNOMED CT 76455 9004) 13. Long-term current use of anticoagulant (SN ED CT 176874451) 81 year old WHITE MALE, patient CHIEF COMPLAINT AND HISTORY OF PRESENT [...] degeneration: Other: VISUAL ACUITY (with correction) OD: 20/20 OS: 20/40+ PH: 20/20-2 OCULAR MOTILITY (EOM): Full without diplopia or pain OU, pursuits and saccades intact OU CONFRONTATION VIS KERN: full to finger countin g OD & OS PUPILS: PERRLA, NO APD PRESENT OU ORBITS/ADNEXA: Normal OU ANTERIOR SEGMENT AND SLIT LAMP EXAM: Lids/Lashes: OD: clear OS: clear Scleral and Conjunctiva: OD: white and quiet OS: white and quiet Cornea: OD: clear without staining OS: clear without staining Anterior Chamber: clear and free of cells or fl are OU Von Estevan Angle estimation: OD: OS: Iris: normal/intact OU/ no neovascularization p resent ou Tonometry: iCare OD 11 OS 10 Time: 0940 DILATION OU: 0940 BY OPTOM ASSISTANT TRACK COACH PATIENT EDUCATED ON SIDE EFFECTS OF DILATION FRANNIE OR TO DROP INSTILLATION. SIDE EFFECT DISCUSSED INCLUDE [...] OU OD: OS: PROCEDURE NOTE: LEFT EYE LUCENTIS INJECTION, LOT # [id number], EXPI RES Jul 2022 ABX: TOPICAL 5% betadine ANESTHESIA: TOPICAL, 4% [...] Lucentis 12/02/12 ([place]), s/p Lucentis 01/2013 at [facility]/Dr. Bashir. -2013 OCT showed full resolution of ME: Was stab le until 01/2019; -DFE 01/2019 OS showed scattered blot hemes and p eripapillary CWS, symptoms re-appeared - apparent BRVO/re-clotting of shunt vessels. Second series of anti VEGF injns: With ME thick- worsening- decision made to begin treatment 01/2019. -Eylea Injection OS WR #1 02/24/2019 Post Hiatus for 5 years #2 07/07/2019 -Eylea Injection OS [place] (Dr. Abdulkadir carvajal MD) #3 10/10/2019 #4 ~11/21/2019 -Eylea Injection OS [facility] #5 03/27/2020 #6 06/24/2020 *NO INJN 08/2020 #7 10/18/2020 #8 12/09/2020 *NO INJN 01/2021 #9 03/03/2021 #10 06/13/2021 #11 08/25/2021 #12 11/28/2021 #13 02/09/2022 LUCENTIS On 05/20/2020, at 7 weeks after 03/2020 [...] injections. 02-07-2021 Dry at 8 weeks post Feb injn, tried aga in to extend- at [...] order today. 11/28/2021 MAC OCT shows significant increase in edema, ~3 month interval from previous injection. Will continue to follow at 10-11 weeks. 02/09/2022- Will use Lucentis today- Eylea not a vailable- he has used it in past. Pt reports vision is stable but notices mo re blur in left eye. Saw optometry today and got updated MRx. OCT MAC shows no new edema f rom last scan, will continue q10-11 week intervals. 2. Has Stage 4 lung CA - immunotherapy treatment s extremely successful, but had side effects- Colitis. Did not go to [place] in [phone] *Patient's secondary cardiac & stroke complications* Cut [place] trip short Goes to Dr Abdulkadir Valenzuela in [place] RTC ORDER: -AW: Already scheduled for April 17, 2022 for DFE , OCT Mac, likely Injn OS Total time spent during this encounter, sarah lopez [id number] and non-face time, was 30 min /es/ CAITLIN MICHELE MD Signed: 02/09/2022 14:05
--- OUTSIDE RECORDS SUMMARY | 2022-07-17 12:30 | XMS_ITS | Encounter Summary ---
:1940 Author Organization Department [facility] rs Address [address] [place] [address] Support Name Relationship Address Phone BLAS CASTRO Unavailable [address] [place] [address] BLAS CASTRO Unavailable [address] [facility] [place] [address] THEA CASTRO Unavailable [address] [place] [address] Insurance Providers: All historical and current Section [...] [place] Jun 01, [id number] [phone] CHERIE PERN,A PATIENT (FEDERAL) PROVIDER MACY 2006 70 7 RNOLD ORGANIZAT FAMIL ION (PPO) Y 105 BCBS OF PREFERRED STAND Nov 01 [id number] [phone] HALPER N,A PATIENT MASS FEP PROVIDER MACY 2004 70 6 RNOLD ORGANIZAT FAMIL ION (PPO) Y BCBS OF DENTAL STAND Nov 01, DENTAL [id number] [phone] MATTHEW,A PATIENT MASS FEP INSURANCE MACY 2004 70 6 RNOLD DENTAL [place] PREF[place] Nov 01, [id number] [phone] CHERIE PERN,A PATIENT FEDERAL PROVIDER MACY 2020 70 4 RNOLD ORGANIZAT SELF ION (PPO) [place] Nov 01, [id number] [phone] CHERIE PERN,A PATIENT FEDERAL PROVIDER MACY 2005 70 4 RNOLD ORGANIZAT FAMIL ION (PPO) Y [employer] PRESCRIPT FEP Nov 02, [id number] [phone] HALP GURJIT,A PATIENT ([id number]) ION 2011 0 70 7 RNOLD [place]ARK PRESCRIPT CAREM Nov 01, [id number] [phone] HALP GURJIT,A PATIENT FEP BCBS ION ARK 2011 0 70 1 RNOLD FEPRX PLAN [place]-F PRESCRIPT BCBS Nov 01, [id number] [phone] QUIÑONES LPERN,A PATIENT EP BCBS ION FEP 2011 0 70 331 RNOLD PLAN MEDICARE MEDICARE PART Jun 01, PART B [id number] [phone] HALPER N,A PATIENT (WNR) (M) B 2006 [id number] 2 RNOLD MEDICARE MEDICARE PART Jun 01, PART A [id number] [id number] HALPER N,A PATIENT (WNR) (M) A 2006 XF33 2 RNOLD MEDICARE MEDICARE PART Jun 01, PART B [id number] HALPER N,A PATIENT (WNR) (M) B 2006 XF33 2 RNOLD MEDICARE MEDICARE PART Jun 01, PART A [id number] HALPER N,A PATIENT (WNR) (M) A 2006 38A 00 RNOLD MEDICARE MEDICARE PART Jun 01, PART B [id number] HALPER N,A PATIENT (WNR) (M) B 2006 38A 00 RNOLD MEDICARE MEDICARE PART Jun 01, PART A [id number] [phone] HALPER N,A PATIENT (WNR) (M) A 2006 [id number] 00 RNOLD MEDICARE MEDICARE PART Jun 01, PART B [id number] HALPER N,A PATIENT (WNR) (M) B 2006 [id number] 00 RNOLD MEDICARE MEDICARE PART Jun 01, PART A [id number] HALPER N,A PATIENT (WNR) (M) A 2006 38A 2 RNOLD MEDICARE MEDICARE PART Jun 01, PART B [id number] [id number] HALPER N,A PATIENT (WNR) (M) B 2006 38A 2 RNELVIS MEDICARE MEDICARE PART Jun 01, PART A [id number] Chetan DAVID PATIENT (WNR) (M) Chetan 2006 [id number] 2 RNOLD Selected Encounter This section includes the information on record at [place] for the Encounter. Date/Time Encounter Type Encounter Description Reason Provider Source Nov 28, 2021 11:43 Outpatient Encounter EVENT (HISTORICAL) AM IHE Encounter Template Text not used by [place] Plan of Treatment: Future Appointments (+ 6 months) and Future Tests (+/- 45 days) The Plan of Treatment section includes future care activities for the patient from all [place] treatmentfacilities. This section includes future appointments and future orders which are active, pending orscheduled.Future Appointments This section includes appointments that were scheduled to occur 6 months from the date of the Encounter, up to a maximum of 20 appointments. The data comes from all [place] treatment facilities. Appointment Date/Time Appointment Type Appointment Facili ty Name Feb 09, 2022 09:30 AM [place] [facility] Feb 09, 2022 12:30 PM [facility] [facility] Feb 09, 2022 02:30 PM [place] [facility] Feb 16, 2022 08:30 AM [facility] Feb 19, 2022 10:30 AM [facility] Feb 19, 2022 10:45 AM [facility]INE [facility] Feb 20, 2022 02:00 PM [place] [facility] Apr 16, 2022 08:30 AM [place] [facility] Social History: Smoking Status (Most current) and Tobacco Use (All prior to encounter date) This section includes the most current, and the historical, smoking and tobacco-related health factors from the [place] facility where the Encounter took place.Current Smoking Status This section includes the most current smoking, or tobacco-related health factor, from the [place] facility where the Encounter took place. Date/Time Current Smoking Status [facility] Facility May 28, 2020 02:23 PM VA-TOBACCO QUIT 15 YRS [place] [facility] Tobacco Use History This section includes a history of the smoking, or tobacco- related health factors, that were collected on or before the date of the Encounter. The data comes from the [place] facility where the Encounter took place. Date/Time Smoking Status/Tobacco Use Comment Facil ity May 28, 2020 02:23 PM VA-TOBACCO QUIT 15 YRS [place] [facility] Dec 29, 2018 03:56 PM VA-TOBACCO FORMER US[place] [facility] Dec 29, 2018 03:56 PM VA-TOBACCO QUIT 5 TO < 15 [place] [facility] Sep 04, 2015 08:54 PM QUIT TOBACCO USE > 7 YEARS [place] A[place] [facility] Jul 31, 2005 02:57 PM HISTORY OF SMOKING [place] Pt. quit 25 years ago. [facility] Jul 30, 2004 02:24 PM H[place]ORY OF SMOKING [place] Pt. quit about 30 years ago. [facility] Jan 16, 2004 09:21 AM QUIT TOBACCO USE > 7 YEARS [place] AGO 30 years ago [facility] Jun 20, 2003 01:47 PM H[place]ORY OF SMOKING [place] Pt. quit 25 years ago. [facility] Jun 08, 2002 02:23 PM H[place] OF SMOKING [place] [facility] Jun 09, 2001 05:10 PM H[place] OF SMOKING [place] [facility]
--- OUTSIDE RECORDS SUMMARY | 2022-07-17 12:30 | XMS_ITS | Encounter Summary ---
:1940 Author Organization [facility] Address [address] [place] [address] Support Name Relationship Address Phone BLAS CASTRO Unavailable [phone] [place] [address] BLAS CASTRO Unavailable [phone] [facility] [place] [address] THEA CASTRO Unavailable [address] [place] [address] Insurance Providers: All historical and current Section [...] [place] PREFERRED [place]AND Jun 01, [id number] [phone] CHERIE PERN,A PATIENT (FEDERAL) PROVIDER MACY 2006 70 7 RNOLD ORGANIZAT FAMIL ION (PPO) Y 105 BCBS OF PREFERRED STAND Nov 01, [id number] [phone] HALPER N,A PATIENT MASS FEP PROVIDER MACY 2004 70 6 RNOLD ORGANIZAT FAMIL ION (PPO) Y BCBS OF DENTAL STAND Nov 01, DENTAL [id number] [phone] MATTHEW,A PATIENT MASS FEP INSURANCE MACY 2004 70 6 RNOLD DENTAL [place] PREFERRED STAND Nov 01, 104 [id number] [phone] CHERIE PERN,A PATIENT FEDERAL PROVIDER MACY 2020 70 4 RNOLD ORGANIZAT SELF ION (PPO) [place] PREF[place] Nov 01, [id number] [phone] CHERIE PERN,A PATIENT FEDERAL PROVIDER MACY 2005 70 4 RNOLD ORGANIZAT FAMIL ION (PPO) Y [place] PRESCRIPT FEP Nov 02, [id number] [phone] HALP GURJIT,A PATIENT ([id number]) ION 2011 0 70 7 RNOLD [place] PRESCRIPT CAREM Nov 01, [id number] [phone] HALP GURJIT,A PATIENT FEP BCBS ION ARK 2011 0 70 1 RNOLD FEPRX PLAN [place]-F PRESCRIPT BCBS Nov 01, [id number] [phone] QUIÑONES LPERN,A PATIENT EP BCBS ION FEP 2011 0 [id number] RNOLD PLAN MEDICARE MEDICARE PART Jun 01, PART B [id number] [phone] HALPER N,A PATIENT (WNR) (M) B 2006 [id number] RNOLD MEDICARE MEDICARE PART Jun 01, PART B [id number] [id number] HALPER N,A PATIENT (WNR) (M) B 2006 [id number] 2 RNOLD MEDICARE MEDICARE PART Jun 01, PART A [id number] HALPER N,A PATIENT (WNR) (M) A 2006 [id number] 2 RNOLD MEDICARE MEDICARE PART Jun 01, PART A [id number] HALPER N,A PATIENT (WNR) (M) A 2006 [id number] 00 RNOLD MEDICARE MEDICARE PART Jun 01, PART B [id number] HALPER N,A PATIENT (WNR) (M) B 2006 [id number] 00 RNOLD MEDICARE MEDICARE PART Jun 01, PART A [id number] [phone] HALPER N,A PATIENT (WNR) (M) A 2006 [id number] RNOLD MEDICARE MEDICARE PART Jun 01, PART B [id number] HALPER N,A PATIENT (WNR) (M) B 2006 [id number] RNOLD MEDICARE MEDICARE PART Jun 01, PART A [id number] HALPER N,A PATIENT (WNR) (M) A 2006 38A 2 RNOLD MEDICARE MEDICARE PART Jun 01, PART B [id number] HALPER N,A PATIENT (WNR) (M) B 2006 38A 2 RNOLD MEDICARE MEDICARE PART Jun 01, PART A [id number] Pam DAVID PATIENT (AMARILYS) (Steffanie Benton 2006 [id number] 2 RNOLD Selected Encounter This section includes the information on record at [place] for the Encounter. Date/Time Encounter Type Encounter Reason Provider Source Description Feb 09, 2022 DETERMINE OPTOMETRY ICD-10-CM Z13.5 MARLEY CHAPIN 09:30 AM REFRACTIVE STATE Encounter for PH screening for eye and ear disorders with Provider Comments: Encounter for Screening for Eye and Ear Disorders IHE Encounter Template Text not used by [facility] Assessments - Encounter Diagnoses This section includes the primary and secondary diagnoses documented for the Encounter. 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 The data comes from all [place] treatment facilities. Appointment Date/Time Appointment Type Appointment Facili ty Name Feb 16, 2022 08:30 AM [facility] Feb 19, 2022 10:30 AM [facility] Feb 19, 2022 10:45 AM AM[facility] - MEDICINE [facility] Feb 20, 2022 02:00 PM AMBULAT[place]IC[place] [facility] Apr 16, 2022 08:30 AM AMBULATORY - [place] [facility] Jun 12, 2022 08:30 AM AMBULATORY - SURGERY [place] [facility] Jun 12, 2022 11:00 AM AM[place]UL[place] - [place] [facility] 2022 09:00 AM AMBULATORY - MEDICINE [facility] Lab Results: +/- 30 days [...] Interpretation Reference Range Comment Feb 19, 2022 [facility] CREATININE WITH eGFR Specimen Type: PLASMA 10:36 AM PANEL Comment: Tests performed on [employer] (405) [id number] Ordering Provid er: HIREN PETERSON Report Released Date/Time: Aug 07, 2021 02:40 PM Reporting Lab: [place] [facility] [address] [address] Performing Lab: [facility] [address] [facility] [address] CREATININE 1.35 0.5-1.5 eGFR(CKD-EPI 2020) 53 L >60 Feb 19, 2022 10:36 AM [facility] CBC PROFILE Specime n Type: BLOOD No comment enter ed. Ordering Provid er: HIREN PETERSON Report Released Date/Time: Aug 07, 2021 02:40 PM Reporting Lab: [place] [facility] [address] [address] Performing Lab: [facility] [address] [facility] [address] WBC 5.0 4.5-11.0 RBC 4.99 4.23-5.66 HGB [...] smoking and tobacco-related health factors from the [place] facility where the Encounter took place.Current Smoking Status This section includes the most current smoking, or tobacco-related health factor, from the [place] facility where the Encounter took place. Date/Time Current Smoking Status Comment Facility May 28, 2020 02:23 PM VA-TOBACCO QUIT 15 YRS OR MORE [place] [facility] Tobacco Use History This section includes a history of the smoking, or tobacco- related health factors, that were collected on or before the date of the Encounter. The data comes from the [place] facility where the Encounter took place. Date/Time Smoking Status/Tobacco Use Comment [facility] May 28, 2020 02:23 PM VA-TOBACCO QUIT 15 YRS OR [place] MORE [facility] Dec 29, 2018 03:56 PM VA-TOBACCO FORMER USER [place] [facility] Dec 29, 2018 03:56 PM VA-TOBACCO QUIT 5 TO < 15 [place] YRS [facility] Sep 04, 2015 08:54 PM QUIT TOBACCO USE > 7 YEARS [place] AGO [facility] Jul 31, 2005 02:57 PM HISTORY OF SMOKING [place] Pt. quit 25 years ago. [facility] Jul 30, 2004 02:24 PM H[place]ORY OF SMOKING [place] Pt[place] [address] [facility] Jan 16, 2004 09:21 AM QUIT TOBACCO USE > 7 YEARS [place] AGO 30 years ago [facility] Jun 20, 2003 01:47 PM H[place]ORY OF SMOKING [place] Pt. quit 25 years ago. [facility] Jun 08, 2002 02:23 PM [place] SMO[place] [facility] Jun 09, 2001 05:10 PM H[place] OF SMOKING [place] [facility] Encounter Notes: All associated encounter notes This section contains the clinical notes associated to the Encounter. Date/Time Encounter Note(s) Provider Source Feb 09, 2022 10:12 AM EYE CONSULT: CHILO CISSE LOCAL TITLE: Eye Clinic Imaging Note [facility] STANDARD TITLE: EYE CONSULT DATE OF NOTE: FEB 09, 2022@10:12 ENTRY DATE: FEB 09, 2022@10:12:27 AUTHOR: CHILO CISSE EXP COSIGNER: URGENCY: STATUS: COMPLETED This consult note title is used for capturing an ophthalmic diagnostic medical image. Please see other Eye notes in CPR S for additional clinical information and interpretation. /ivy/ CHILO Mackey [employer] Signed: 02/09/2022 11:30 Feb 09, 2022 09:16 AM EYE E & M NOTE: JOSE ANTONIO CHAPIN LOCAL TITLE: Eye Resident Note/Exam Template [facility] STANDARD TITLE: EYE E & M NOTE DATE OF NOTE: FEB 09, 2022@09:16 ENTRY DATE: FEB 09, 2022@09:16:28 AUTHOR: GAUDENCIO JOHNSON EXP COSIGNER: JOSE ANTONIO MARTIN URGENCY: STATUS: COMPLETED Eye Resident Note/Exam Template Has ADDENDA NEW OR ESTABLISHED PATIENT OPHTHALMIC EX AMINATION [...] 5) Non-VA NIVOLUMAB INJ,SOLN INTRAVENOUS EVERY T ACTIVE WEEKS 6) Non-VA ONDANSETRON 4MG ORAL DISINTEGRATING TA B 4MG BY ACTIVE MOUTH EVERY FOUR HOURS NEEDED 7) Non-VA PREGABALIN 100MG ORAL CAP 100MG BY THREE ACTIVE TIMES A DAY Allergies/Adverse Reactions: [...] upper lobe of pebbles g (SNOMED CT 05938032) 5. Superficial phlebitis (SNOMED CT 2315262) 6. Acute sinusitis 7. Family History of Malignant Neoplasm of [place] st 8. Subjective tinnitus 9. Health Maintenance 10. Enlarged prostate (SNOMED CT 170662431) 11. Sensorineural Hearing Loss, Bilateral 12. Chronic atrial fibrillation (SNOMED CT 51385116 [id number]) 13. Long-term current use of anticoagulant (SN ED CT 917188390) 81 year old WHITE MALE, established patient CHIEF COMPLAINT AND HISTORY OF PRESENT ILLNESS ( HPI): Pt presents for CEE #mac Edema OS -seeing Dr. Russo today after appointment -Last visit summary with Dr. Solano: 11/28/2021 MAC OCT shows significant increase in edema, ~3 month interval fro m previous injection. Will continue to follow at 10-11 weeks. Denies new f/f, pain, ZAMZAM, diplopia, photophobia , itching, burning, stinging Neurological and Psychiatric Status: Orientation : Oriented to person, time, place Mood and Affect: normal, no agitation, no anxiety, no depressive behaviors in clinic OCULAR HISTORY: 1. 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 - s/p Lucentis 09/06/12 ([place]) - [place] Lucentis [place] - [place] Lucentis [place]/2013 [place] [facility] [place]. Bashir - [place] Injection OS [facility] #1 02/24/2019 Post Hiatus for 5 years #2 07/07/2019 - Eylea Injection OS [place] (Dr. Abdulkadir watts MD) #3 10/10/2019 #4 ~11/21/2019 - Eylea Injection OS [facility] #5 03/27/2020 #6 06/24/2020 #7 10/18/2020 #8 12/09/2020 #9 03/03/2021 #10 06/13/2021 #11 08/25/2021 #12 11/28/2021 2. H/o transient visual obscuration OS on 2 --Pt has h/o hypertension, hyperlipidemia, and atrial fibrillation. 3. Very longstanding, non-tractional, non-macula r Epiretinal Membrane OU 4. Mild cataracts OU 5. Retinoschisis OS inferior nasal 6. Refractive error with presbyopia OU VISUAL ACUITY (with DVO correction) OD: 20/20-2 OS: 20/40+ PH:20/20-2 OU near with +1.50 OTC readers:20/30 Current Rx DVO OD: +1.75 -1.50 x 075 OS: +2.25 -1.25 x 080 REFRACTION and BEST-CORRECTED VISION OD: +1.75 -1.50 x 072 20/20 OS: +3.50 -1.25 x 081 20/25- Add: +2.50 20/20- Pt accepted trial frame at dista and near Pt appreciated change in vision OS with +1.25D l oose lens over habitual Rx OCULAR MOTILITY (EOM): Full without dipl opia or pain OU, pursuits and saccades intact OU CONFRONTATION VIS KERN: full to finger countin g OD & OS PUPILS: PERRL, NO APD PRESENT OU Amsler Grid w/ trial frame OD: no metamorphopsia, no scotomas noted OS: no metamorphopsia, no scotomas noted ORBITS/ADNEXA: Normal OU ANTERIOR SEGMENT AND SLIT LAMP EXAM: Lids/Lashes: OD: trMGD, papilloma on UL and LL OS: trMGD Scleral and Conjunctiva: OD: white and quiet, ping n/t OS: white and quiet, ping n/t Cornea: OD: clear without staining OS: clear without staining Anterior Chamber: clear and free of cells or fl are OU Von Estevan Angle estimation: OD:4x4 OS:4x4 Iris: normal/intact OU/ no neovascularization p resent ou Tonometry:iCare OD 11 OS 10 Time:9:40am DILATION OU: PATIENT EDUCATED ON SIDE EFFECTS OF DILATION PRIOR TO DROP INSTILLATION. SIDE EFFECT DISCUSSED INCLUDE LIGH T SENSITIVITY AND BLURRED VISION AT NEAR. 1 gtt 1% Tropicamide 1 gtt 2.5% Phenylephrine Time:9:52am INTERNAL EYE EXAMINATION BY SLIT LAMP, FUNDUSCOP Y AND BINOCULAR INDIRECT OPHTHALMOSCOPE: Lens: OD: 2+NS OS: 2+NS, tr-1 PSC Vitreous: OD: syneresis present,PVD OS: syneresis present,PVD Nerve: RIM INTACT AND WITHOUT FOCAL DEFECTS OR PALLOR OU OD C/D: 0.35r OS C/D: 0.40r; shunt vessels nasal and sup to n erve Macula: Even pigment, NO macular edema OU OD:mottling OS:mottling Vessels: Normal course and caliber OU OS:a few hemes at the end of sup arcade Mid-peripheral and Peripheral Retina: Flat and intact 360 degrees OU Fundus Photography ([facility]) Interpretation and Report Reason for test: To follow retinal condition for exchange architect time OD:WNL OS:shunt vessels on nerve, hemes at end of super ior arcade Unable to appreciate mac edema OS ASSESSMENT/PLAN 1. 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 Russo; being seen today -[place] today: shunt vessel on nerve with hemes at end of superior arcade OS //Continue care with Doctor Rafaela q8 weeks. Sarah huitron with Optometry yearly for comprehensive exams. 2. Macular Drusen OU - STABLE //Educated on health diet wi leafy greens/antixodants/fruits/veggies. Advised UV protection. Monitor 3. Age-Related Cataracts OU - ADLs not currently affected - Mildly visually significant OU // Patient educated on findings. Surgery not indicated at this time. Discussed UV protection. Monitor. 4. Retinal heme OS - photo documented with [facility] today //Monitor. 5.. 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 Dispensed new SRx as DVO a nd NVO. Monitor RTC ORDER:1 yr for CEE with optom - mesfin carter d care with Rafaela d/c Continue care with Dr. Russo PATIENT EDUCATION:see above STUDENT SUPERVISION: Optometry student Shakeel Hernandez participated in [facility] care of this patient. The student performed an initial history, review of systems, medication review, and ophthalmic examination. The above note represent s care provided by me and is NOT a student note. Supervising Spooler: Jose Antonio Chapin O.D. RESIDENT SUPERVISION: I, Gaudencio Johnson, have seen and discussed this patient with my supervising doctor. (x) My supervising doctor was present for and/o r directly examined this patient. (x) My supervising doctor pam ramirezes with my assessment and plan and is identified as a cosigner on this note. Note complete (Xx) Total time spent during this encounter, includin g [id number] and non-face time, was 38min /jesenia CHAPIN LINDERMAN OPERATOR Signed: 02/09/2022 11:31 for GAUDENCIO JOHNSON O.D. Optometry Resident /jesenia CHAPIN LINDERMAN OPERATOR Cosigned: 02/09/2022 11:31 02/09/2022 ADDENDUM STATUS: COMPLETED I have reviewed the patient's medical history an d above eye exam note. I agree with the assessment and plan. I have discussed these findings with the residen t /jesenia CHAPIN LINDERMAN OPERATOR Signed: 02/09/2022 11:31
--- OUTSIDE RECORDS SUMMARY | 2022-07-17 12:31 | XMS_ITS | Encounter Summary ---
:1940 Author Organization Department [facility] rs Address [address] [place] [address] Support Name Relationship Address Phone BLAS CASTRO Unavailable [phone] [place] [address] BLAS CASTRO Unavailable [address] [facility] [place] [address] THEA CASTRO Unavailable [address] [place] [address] Insurance Providers: All historical and current Section [...] [place] PREF[place]AND Jun 01, [id number] [phone] CHERIE PERN,A PATIENT (FEDERAL) PROVIDER MACY 2006 70 7 RNOLD ORGANIZAT FAMIL ION (PPO) Y 105 BCBS OF PREFERRED STAND Nov 01, [id number] [phone] HALPER N,A PATIENT MASS FEP PROVIDER MACY 2004 70 6 RNOLD ORGANIZAT FAMIL ION (PPO) Y BCBS OF DENTAL STAND Nov 01, DENTAL [id number] [phone] MATTHEW,A PATIENT MASS FEP INSURANCE MACY 2004 70 6 RNOLD DENTAL [place] PREFERRED STAND Nov 01, 104 [id number] [phone] CHERIE PERN,A PATIENT FEDERAL PROVIDER MACY 2020 70 4 RNOLD ORGANIZAT SELF ION (PPO) [place] PREFERRED [place] Nov 01, 105 [id number] [phone] CHERIE PERN,A PATIENT FEDERAL PROVIDER MACY 2005 70 4 RNOLD ORGANIZAT FAMIL ION (PPO) Y CAREMARK PRESCRIPT FEP Nov 02, [id number] [phone] HALP GURJIT,A PATIENT ([id number]) ION 2011 0 70 7 RNOLD CAREMARK PRESCRIPT CAREM Nov 01, [id number] [phone] HALP GURJIT,A PATIENT FEP BCBS ION ARK 2011 0 70 1 RNOLD FEPRX PLAN CAREMARK-F PRESCRIPT BCBS Nov 01, [id number] [phone] QUIÑONES LPERN,A PATIENT EP BCBS ION FEP 2011 0 [id number] 331 RNOLD PLAN MEDICARE MEDICARE PART Jun 01, PART B [id number] [phone] HALPER N,A PATIENT (WNR) (M) B 2006 [id number] 2 RNOLD MEDICARE MEDICARE PART Jun 01, PART A [id number] [id number] HALPER N,A PATIENT (WNR) (M) A 2006 XF33 2 OLD MEDICARE MEDICARE PART Jun 01, PART B [id number] [id number] HALPER N,A PATIENT (WNR) (M) B 2006 XF33 2 RNOLD MEDICARE MEDICARE PART Jun 01, PART A [id number] HALPER N,A PATIENT (WNR) (M) A 2006 38A 00 RNOLD MEDICARE MEDICARE PART Jun 01, PART B [id number] HALPER N,A PATIENT (WNR) (M) B 2006 38A 00 RNOLD MEDICARE MEDICARE PART Jun 01, PART A [id number] [phone] HALPER N,A PATIENT (WNR) (M) A 2006 [id number] 00 RNOLD MEDICARE MEDICARE PART Jun 01, PART B [id number] HALPER N,A PATIENT (WNR) (M) B 2006 [id number] 00 RNOLD MEDICARE MEDICARE PART Jun 01, PART A [id number] HALPER N,A PATIENT (WNR) (M) A 2006 38A 2 RNOLD MEDICARE MEDICARE PART Jun 01, PART B [id number] [id number] HALPER N,A PATIENT (WNR) (M) B 2006 38A 2 RNOLD MEDICARE MEDICARE PART Jun 01, PART A [id number] Chetan DAVID PATIENT (WNR) (M) Chetan 2006 [id number] 2 RNOLD Selected Encounter This section includes the information on record at [place] for the Encounter. Date/Time Encounter Type Encounter Reason Provider Source Description Feb 09, 2022 HEARING AID AUDIOLOGY ICD-10-CM Z46.1 BRANDIN TIRADO 02:30 PM SUP/ACCESS/DEV Encounter for SYD fitting and adjustment of hearing aid with Provider Comments: Encounter for Fitting and Adjustment of Hearing Aid IHE Encounter Template Text not used by [place] Assessments - Encounter Diagnoses This section includes the primary and secondary diagnoses documented for the Encounter. Date/Time Primary/Secondary Diagnosis Name Provider Source Diagnosis Feb 09, 2022 PRIMARY Encounter for BRANDIN TIRADO 02:45 PM fitting and [facility] [place] [facility] Feb 09, 2022 SECONDARY Sensorineural DAHL,BRANDIN ALVARES 02:45 PM hearing loss, SYD [place] [facility] bilateral Plan of Treatment: Future Appointments (+ 6 months) and Future Tests (+/- 45 days) The Plan of Treatment section includes future care activities for the patient from all [place] treatmentfacilities. This section includes future appointments and future orders which are active, pending orscheduled.Future Appointments This section includes appointments that were scheduled to occur 6 months from the date of the Encounter, up to a maximum of 20 appointments. The data comes from all [place] treatment facilities. Appointment Date/Time Appointment Type Appointment Facili ty Name Feb 16, 2022 08:30 AM [facility]INE [facility] Feb 19, 2022 10:30 AM [facility] Feb 19, 2022 10:45 AM [facility] Feb 20, 2022 02:00 PM [place] [facility] Apr 16, 2022 08:30 AM [facility] [place] [facility] Jun 12, 2022 08:30 AM [facility] [place] [facility] Jun 12, 2022 11:00 AM [place] [facility] 2022 09:00 AM [facility] Lab Results: +/- 30 days of the encounter This section includes the Chemistry and Hematology Lab Results on record with [place] for the patient. Radiology Reports and Pathology Reports are provided separately, in subsequent sections.Lab Results This section contains the Chemistry/Hematology Results that were resulted 30 days before or 30 daysafter the date of the Encounter. Date/Time Source Result Type Result - Unit Interpretation Reference Range Comment Feb 19, 2022 [facility] CREATININE WITH eGFR Specimen Type: PLASMA 10:36 AM PANEL Comment: Tests performed on [employer] (405) [id number] Ordering Provid er: HIREN PETERSON Report Released Date/Time: Aug 07, 2021 02:40 PM Reporting Lab[facility] [address] [facility] [address] Performing Lab: [facility] [address] [facility] [address] CREATININE 1.35 0.5-1.5 eGFR(CKD-EPI 2020) 53 L >60 Feb 19, 2022 10:36 AM [facility] CBC PROFILE Specime n Type: BLOOD No comment enter ed. Ordering Provid er: HIREN PETERSON Report Released Date/Time: Aug 07, 2021 02:40 PM Reporting Lab: [facility] [address] [facility] [address] Performing Lab: [facility] [address] [facility] [address] WBC 5.0 4.5-11.0 RBC 4.99 4.23-5.66 HGB [...] smoking and tobacco-related health factors from the [place] facility where the Encounter took place.Current Smoking Status This section includes the most current smoking, or tobacco-related health factor, from the [place] facility where the Encounter took place. Date/Time Current Smoking Status Comment Facility May 28, 2020 02:23 PM VA-TOBACCO QUIT 15 YRS OR MORE [place] [facility] Tobacco Use History This section includes a history of the smoking, or tobacco- related health factors, that were collected on or before the date of the Encounter. The data comes from the [place] facility where the Encounter took place. Date/Time Smoking Status/Tobacco Use Comment [facility] May 28, 2020 02:23 PM VA-TOBACCO QUIT 15 YRS OR [place] [facility] Dec 29, 2018 03:56 PM [place]AC[place] [facility] Dec 29, 2018 03:56 PM VA-TOBACCO QUIT 5 TO < [address] [place] [address] [facility] Sep 04, 2015 08:54 PM QUIT TOBACCO USE > [address] [place] [address] [facility] Jul 31, 2005 02:57 PM [place]MO[place] [address] [facility] Jul 30, 2004 02:24 PM [place]MO[place] Pt[place] quit about 30 years ago. [facility] Jan 16, 2004 09:21 AM QUIT TOBACCO USE > 7 [place]ARS [place] [address] [facility] Jun 20, 2003 01:47 PM [place]MO[place] Pt[place] quit [address] [facility] Jun 08, 2002 02:23 PM [place] [facility] Jun 09, 2001 05:10 PM [place] [facility] Encounter Notes: All associated encounter notes This section contains the clinical notes associated to the Encounter. Date/Time Encounter Note(s) Provider Source Feb 09, 2022 02:25 PM AUDIOLOGY NOTE: BRANDIN TIRADO [facility] LOCAL TITLE: Audiology Note [facility] STANDARD TITLE: AUDIOLOGY NOTE DATE OF NOTE: FEB 09, 2022@14:25 ENTRY DATE: FEB 09, 2022@14:25:18 AUTHOR: BRANDIN TIRADO EXP COSIGNER: URGENCY: STATUS: COMPLETED HEARING AID CHECK: Subjective: 81 year old with sensorineural hearing l oss and HEARING AIDS 02/21/18 GN RESOUND LINX3D T S 61 MINI LETICIA R [id number] 03/04/21 02/21/18 GN RESOUND LINX3D T S 61 MINI LETICIA L [id number] 03/04/21 -size #3MP receivers and surefit tulip domes was seen today. reports the push buttons is intermittent on the right aid. He stated that sometime s he has to press the button 10 or 15 times before it changes. He also requested more supplies. Objective/Assessment: Otoscopy revealed clear canals AU. Cleaned, repl aced tammi covers, domes, wax traps and checked hearing aids - working well; p ush buttons were functioning normally with new tammi covers. Subjectively veter an was pleased with settings. Placed order in [facility] for batteries, dome s and wax traps per 's request. Discussed scheduling an updated test and selecti on of new hearing aids as does not have a spar e set- declined and will contact the clinic to schedule a test when he would like to proceed with updated technology. Plan: 1) Follow up per request. /ivy/ Stacia Dey Staff Senior Safety Management Consultant Signed: 02/09/2022 14:46
--- OUTSIDE RECORDS SUMMARY | 2022-07-17 12:31 | XMS_ITS | Encounter Summary ---
:1940 Author Organization Department [facility] rs Address [address] [place] [address] Support Name Relationship Address Phone BLAS CASTRO Unavailable [address] [place] [address] BLAS CASTRO Unavailable [address] [facility] [place] [address] THEA CASTRO Unavailable [address] [place] [address] Insurance Providers: All historical and current Section [...] [place] Jun 01, [id number] [phone] CHERIE PERN,A PATIENT (FEDERAL) PROVIDER MACY 2006 70 7 RNOLD ORGANIZAT FAMIL ION (PPO) Y 105 BCBS OF PREFERRED STAND Nov 01 [id number] [phone] HALPER N,A PATIENT MASS FEP PROVIDER MACY 2004 70 6 RNOLD ORGANIZAT FAMIL ION (PPO) Y BCBS OF DENTAL STAND Nov 01, DENTAL [id number] [phone] MATTHEW,A PATIENT MASS FEP INSURANCE MACY 2004 70 6 RNOLD DENTAL [place] PREF[place] Nov 01, 104 [id number] [phone] CHERIE PERN,A PATIENT FEDERAL PROVIDER MACY 2020 70 4 RNOLD ORGANIZAT SELF ION (PPO) [place]REF[place] Nov 01, 105 [id number] [phone] CHERIE PERN,A PATIENT FEDERAL PROVIDER MACY 2005 70 4 RNOLD ORGANIZAT FAMIL ION (PPO) Y CAREMARK PRESCRIPT FEP Nov 02, [id number] [phone] HALP GURJIT,A PATIENT ([id number]) ION 2011 0 70 7 RNOLD CAREMARK PRESCRIPT CAREM Nov 01, [id number] [phone] HALP GURJIT,A PATIENT FEP BCBS ION ARK 2011 0 70 1 RNOLD FEPRX PLAN CAREMARK-F PRESCRIPT BCBS Nov 01, [id number] [phone] QUIÑONES LPERN,A PATIENT EP BCBS ION FEP 2011 0 70 331 RNOLD PLAN MEDICARE MEDICARE PART Jun 01, PART B [id number] [id number] HALPER N,A PATIENT (WNR) (M) B 2006 XF33 2 RNOLD MEDICARE MEDICARE PART Jun 01, PART A [id number] [id number] HALPER N,A PATIENT (WNR) (M) A 2006 XF33 2 RNOLD MEDICARE MEDICARE PART Jun 01, PART B [id number] [id number] HALPER N,A PATIENT (WNR) (M) B 2006 XF33 2 RNOLD MEDICARE MEDICARE PART Jun 01, PART A [id number] HALPER N,A PATIENT (WNR) (M) A 2006 38A 00 RNOLD MEDICARE MEDICARE PART Jun 01, PART B [id number] HALPER N,A PATIENT (WNR) (M) B 2006 38A 00 RNOLD MEDICARE MEDICARE PART Jun 01, PART A [id number] [phone] HALPER N,A PATIENT (WNR) (M) A 2006 XF33 00 RNOLD MEDICARE MEDICARE PART Jun 01, PART B [id number] HALPER N,A PATIENT (WNR) (M) B 2006 XF33 00 RNOLD MEDICARE MEDICARE PART Jun 01, PART A [id number] [id number] HALPER N,A PATIENT (WNR) (M) A 2006 38A 2 RNOLD MEDICARE MEDICARE PART Jun 01, PART B [id number] [phone] HALPER N,A PATIENT (WNR) (M) B 2006 38A 2 RNOLD MEDICARE MEDICARE PART Jun 01, PART A [id number] [id number] Chetan DAVID PATIENT (WNR) (M) Chetan 2006 [id number] 2 RNOLD Selected Encounter This section includes the information on record at [place] for the Encounter. Date/Time Encounter Type Encounter Description Reason Provider Source Feb 09, 2022 01:54 Outpatient Encounter EVENT (HISTORICAL) PM IHE Encounter Template Text not used by [place] Plan of Treatment: Future Appointments (+ 6 months) and Future Tests (+/- 45 days) The Plan of Treatment section includes future care activities for the patient from all [place] treatmentfacilities. This section includes future appointments and future orders which are active, pending orscheduled.Future Appointments This section includes appointments that were scheduled to occur 6 months from the date of the Encounter, up to a maximum of 20 appointments. The data comes from all [place] treatment facilities. Appointment Date/Time Appointment Type Appointment Facili ty Name Feb 16, 2022 08:30 AM AM[facility]ORY - [facility]INE [facility] Feb 19, 2022 10:30 AM [facility] Feb 19, 2022 10:45 AM [facility] Feb 20, 2022 02:00 PM [place]ICINE [place] [facility] Apr 16, 2022 08:30 AM [facility] [place] [facility] Jun 12, 2022 08:30 AM [facility] [place] [facility] Jun 12, 2022 11:00 AM [place] [facility] 2022 09:00 AM [facility] Lab Results: +/- 30 days of the encounter This section includes the Chemistry and Hematology Lab Results on record with [place] for the patient. Radiology Reports and Pathology [...] 10:36 AM PANEL Comment: Tests performed on [employer] (405) [id number] Ordering Provid er: HIREN PETERSON Report Released Date/Time: Aug 07, 2021 02:40 PM Reporting Lab: [place] [facility] [address] [facility] [address] Performing Lab: [facility] [address] [facility] [address] CREATININE 1.35 0.5-1.5 eGFR(CKD-EPI 2020) 53 L >60 Feb 19, 2022 10:36 AM [facility] CBC PROFILE Specime n Type: BLOOD No comment enter ed. Ordering Provid er: HIREN PETERSON Report Released Date/Time: Aug 07, 2021 02:40 PM Reporting [facility] [address] [facility] [address] Performing Lab: [facility] [address] [facility] [address] WBC 5.0 4.5-11.0 RBC 4.99 4.23-5.66 HGB [...] smoking and tobacco-related health factors from the [place] facility where the Encounter took place.Current Smoking Status This section includes the most current smoking, or tobacco-related health factor, from the [place] facility where the Encounter took place. Date/Time Current Smoking Status Comment Facility May 28, 2020 02:23 PM VA-TOBACCO QUIT 15 YRS OR MORE [place] [facility] Tobacco Use History This section includes a history of the smoking, or tobacco- related health factors, that were collected on or before the date of the Encounter. The data comes from the [place] facility where the Encounter took place. Date/Time Smoking Status/Tobacco Use Comment [facility] May 28, 2020 02:23 PM VA-TOBACCO QUIT 15 YRS OR [place] MORE [facility] Dec 29, 2018 03:56 PM [place] FOR[place] [facility] Dec 29, 2018 03:56 PM VA-TOBACCO QUIT 5 TO < 15 [place] [facility] Sep 04, 2015 08:54 PM QUIT TOBACCO USE > 7 YEARS [place] [facility] Jul 31, 2005 02:57 PM [place]MO[place] quit 25 years ago. [facility] Jul 30, 2004 02:24 PM [place]MO[place] Pt[place] quit about 30 years ago. [facility] Jan 16, 2004 09:21 AM QUIT TOBACCO USE > 7 YEARS [place] A[place] 30 years ago [facility] Jun 20, 2003 01:47 PM H[place] OF [place]MOKING [place] Pt[place] quit 25 years ago. [facility] Jun 08, 2002 02:23 PM [place] [facility] Jun 09, 2001 05:10 PM [place] OF [place]MOKING [place] [facility]
--- OUTSIDE RECORDS SUMMARY | 2022-07-17 12:31 | XMS_ITS | Encounter Summary ---
:1940 Author Organization Department [facility] rs Address [address] [place] [id number] Support Name Relationship Address Phone BLAS CASTRO Unavailable [address] [place] [address] BLAS CASTRO Unavailable [address] [facility] [place] [address] THEA CASTRO Unavailable [address] [place] [address] Insurance Providers: All historical and current Section [...] [place] Jun 01, [id number] [phone] CHERIE PERN,A PATIENT (FEDERAL) PROVIDER MACY 2006 70 7 RNOLD ORGANIZAT FAMIL ION (PPO) Y 105 BCBS OF PREFERRED STAND Nov 01 [id number] [phone] HALPER N,A PATIENT MASS FEP PROVIDER MACY 2004 70 6 RNOLD ORGANIZAT FAMIL ION (PPO) Y BCBS OF DENTAL STAND Nov 01, DENTAL [id number] [phone] MATTHEW,A PATIENT MASS FEP INSURANCE MACY 2004 70 6 RNOLD DENTAL [place] PREFERRED [place]AND Nov 01, 104 [id number] [phone] CHERIE PERN,A PATIENT FEDERAL PROVIDER MACY 2020 70 4 RNOLD ORGANIZAT SELF ION (PPO) [place] PREF[place]ED [place] Nov 01, 105 [id number] [phone] CHERIE PERN,A PATIENT FEDERAL PROVIDER MACY 2005 70 4 RNOLD ORGANIZAT FAMIL ION (PPO) Y CAREMARK PRESCRIPT FEP Nov 02, [id number] [phone] HALP GURJIT,A PATIENT ([id number]) ION 2011 0 70 7 RNOLD CAREMARK PRESCRIPT CAREM Nov 01, [id number] [phone] HALP GURJIT,A PATIENT FEP BCBS ION ARK 2011 0 70 1 RNOLD FEPRX PLAN [place]-F PRESCRIPT BCBS Nov 01, [id number] [phone] QUIÑONES LPERN,A PATIENT EP BCBS ION FEP 2011 0 70 331 RNOLD PLAN MEDICARE MEDICARE PART Jun 01, PART B [id number] [id number] HALPER N,A PATIENT (WNR) (M) B 2006 XF33 2 RNOLD MEDICARE MEDICARE PART Jun 01, PART A [id number] [phone] HALPER N,A PATIENT (WNR) (M) A 2006 XF33 2 RNOLD MEDICARE MEDICARE PART Jun 01, PART B [id number] [phone] HALPER N,A PATIENT (WNR) (M) B 2006 XF33 2 RNOLD MEDICARE MEDICARE PART Jun 01, PART A [id number] HALPER N,A PATIENT (WNR) (M) A 2006 38A 00 RNOLD MEDICARE MEDICARE PART Jun 01, PART B [id number] HALPER N,A PATIENT (WNR) (M) B 2006 38A 00 RNOLD MEDICARE MEDICARE PART Jun 01, PART A [id number] [phone] HALPER N,A PATIENT (WNR) (M) A 2006 [id number] 00 RNOLD MEDICARE MEDICARE PART Jun 01, PART B [id number] HALPER N,A PATIENT (WNR) (M) B 2006 [id number] 00 RNOLD MEDICARE MEDICARE PART Jun 01, PART A [id number] HALPER N,A PATIENT (WNR) (M) A 2006 38A 2 RNOLD MEDICARE MEDICARE PART Jun 01, PART B [id number] [id number] HALPER N,A PATIENT (WNR) (M) B 2006 38A 2 RNOLD MEDICARE MEDICARE PART Jun 01, PART A [id number] Chetan DAVID PATIENT (WNR) (M) Chetan 2006 [id number] 2 RNOLD Selected Encounter This section includes the information on record at [place] for the Encounter. Date/Time Encounter Type Encounter Description Reason Provider Source Aug 31, 2021 12:00 Outpatient Encounter EVENT (HISTORICAL) AM IHE Encounter Template Text not used by [place] Plan of Treatment: Future Appointments (+ 6 months) and Future Tests (+/- 45 days) The Plan of Treatment section includes future care activities for the patient from all [place] treatmentfacilities. This section includes future appointments and future orders which are active, pending orscheduled.Future Appointments This section includes appointments that were scheduled to occur 6 months from the date of the Encounter, up to a maximum of 20 appointments. The data comes from all [place] treatment facilities. Appointment Date/Time Appointment Type Appointment Facili ty Name Nov 28, 2021 10:30 AM AM[place]ULATORY [place] [facility] Feb 09, 2022 09:30 AM [facility] [place] [facility] Feb 09, 2022 12:30 PM [facility] [place] [facility] Feb 09, 2022 02:30 PM [place] [facility] Feb 16, 2022 08:30 AM [facility] Feb 19, 2022 10:30 AM [facility]INE [facility] Feb 19, 2022 10:45 AM [facility]INE [facility] Feb 20, 2022 02:00 PM [facility] Lab Results: +/- 30 days of the encounter This section includes the Chemistry and Hematology Lab Results on record with [place] for the patient. Radiology Reports and Pathology Reports are provided separately, in subsequent sections.Lab Results This section contains the Chemistry/Hematology Results that were resulted 30 days before or 30 daysafter the date of the Encounter. Date/Time Source Result Type Result - Unit Interpretation Reference Range Comment Aug 05, 2021 09:09 AM [place] [facility] ALT(SGPT) Sp ecimen Type: PLASMA Comment: Tests performed on [employer] (405) [id number] Ordering Provid er: MERNA DOWD Report Released Date/Time: Feb 07, 2021 10:02 AM Reporting Lab: [place] [facility] [address] [facility] [address] Performing Lab: [place] [facility] [address] [facility] [address] ALT(SGPT) 15 7-52 Aug 05, 2021 09:09 AM [place] [facility] AST(SGOT) Sp ecimen Type: PLASMA Comment: Tests performed on [employer] (405) [id number] Ordering Provid er: MERNA DOWD Report Released Date/Time: Feb 07, 2021 10:02 AM Reporting Lab: [place] [facility] [address] [facility] [address] Performing Lab: [place] [facility] [address] [facility] [address] AST(SGOT) 19 5-34 Aug 05, 2021 09:09 [place] CBC NO DIFF Specimen Typ e: BLOOD AM [facility] No comment enter ed. Ordering Provid er: MERNA DOWD Report Released Date/Time: Feb 07, 2021 10:02 AM Reporting Lab: [place] [facility] [address] [facility] [address] Performing Lab: [place] [facility] [address] [facility] [address] WBC 5.0 4.5-11.0 RBC 5.18 4.23-5.66 HGB 15.2 12.8-17 HEMATOCRIT 48.7 39.2-50.4 MCV 94.0 82-99 MCH 29.3 26.2-32.6 MCHC 31.2 30.8-35.1 PLT 190 140-360 MPV 10.8 9.2-12.4 RDW 14.3 12.0-16.0 Aug 05, 2021 [place] CREATININE WITH eGFR Specimen T ype: PLASMA 09:09 AM [facility] PANEL Comment: Tests performed on [employer] (405) [id number] Ordering Provid er: MERNA DOWD Report Released Date/Time: Feb 07, 2021 10:02 AM Reporting Lab: [place] [facility] [address] [facility] [address] Performing Lab: [place] [facility] [address] [facility] [address] CREATININE 1.29 0.5-1.5 eGFR 54 L >60 Immunizations: All administered on the encounter date This section contains immunizations associated to the Encounter. Immunization Series Date Issued Reaction Comments COVID-19 (PFIZER), MRNA, LNP-S, PF, 30 MCG/0.3 3 Aug 31, 2021 ML DOSE Social History: Smoking Status (Most current) and Tobacco Use (All prior to encounter date) This section includes the most current, and the historical, smoking and tobacco-related health factors from the [place] facility where the Encounter took place.Current Smoking Status This section includes the most current smoking, or tobacco-related health factor, from the [place] facility where the Encounter took place. Date/Time Current Smoking Status Comment [facility] May 28, 2020 02:23 PM VA-TOBACCO QUIT 15 YRS OR MORE [place] [facility] Tobacco Use History This section includes a history of the smoking, or tobacco- related health factors, that were collected on or before the date of the Encounter. The data comes from the [place] facility where the Encounter took place. Date/Time Smoking Status/Tobacco Use Comment [facility] May 28, 2020 02:23 PM [...] [place] 30 [place] ago. [facility] Jan 16, 2004 09:21 AM QUIT [...]
--- OUTSIDE RECORDS SUMMARY | 2022-07-17 12:32 | XMS_ITS | Encounter Summary ---
:1940 Author Organization Department [facility] rs Address [address] [place] [address] Support Name Relationship Address Phone BLAS CASTRO Unavailable [phone] [place] [address] BLAS CASTRO Unavailable [address] [facility] [place] [address] THEA CASTRO Unavailable [address] [place] [address] Insurance Providers: All historical and current Section [...] [place] PREFERRED STAND Jun 01, [id number] [phone] CHERIE PERN,A PATIENT (FEDERAL) PROVIDER MACY 2006 70 7 RNOLD ORGANIZAT FAMIL ION (PPO) Y 105 BCBS OF PREFERRED STAND Nov 01, [id number] [phone] HALPER N,A PATIENT MASS FEP PROVIDER MACY 2004 70 6 RNOLD ORGANIZAT FAMIL ION (PPO) Y BCBS OF DENTAL STAND Nov 01, DENTAL [id number] [phone] MATTHEW,A PATIENT MASS FEP INSURANCE MACY 2004 70 6 RNOLD DENTAL [place] PREFERRED STAND Nov 01, 104 [id number] [phone] CHERIE PERN,A PATIENT FEDERAL PROVIDER MACY 2020 70 4 RNOLD ORGANIZAT SELF ION (PPO) [place] PREF[place] Nov 01, 105 [id number] [phone] CHERIE PERN,A PATIENT FEDERAL PROVIDER MACY 2005 70 4 RNOLD ORGANIZAT FAMIL ION (PPO) Y CAREMARK PRESCRIPT FEP Nov 02, [id number] [phone] HALP GURJIT,A PATIENT ([id number]) ION 2011 0 70 7 RNOLD CAR[place]ARK PRESCRIPT CAREM Nov 01, [id number] [phone] HALP GURJIT,A PATIENT FEP BCBS ION ARK 2011 0 70 1 RNOLD FEPRX PLAN [place]-F PRESCRIPT BCBS Nov 01, [id number] [phone] QUIÑONES LPERN,A PATIENT EP BCBS ION FEP 2011 0 [id number] 331 RNOLD PLAN MEDICARE MEDICARE PART Jun 01, PART B [id number] [id number] HALPER N,A PATIENT (WNR) (M) B 2006 [id number] 2 RNOLD MEDICARE MEDICARE PART Jun 01, PART A [id number] HALPER N,A PATIENT (WNR) (M) A 2006 [id number] 2 OLD MEDICARE MEDICARE PART Jun 01, PART B [id number] [id number] HALPER N,A PATIENT (WNR) (M) B 2006 [id number] 2 RNOLD MEDICARE MEDICARE PART Jun 01, PART A [id number] HALPER N,A PATIENT (WNR) (M) A 2006 [id number] 00 RNOLD MEDICARE MEDICARE PART Jun 01, PART B [id number] HALPER N,A PATIENT (WNR) (M) B 2006 38A 00 RNOLD MEDICARE MEDICARE PART Jun 01, PART A [id number] [phone] HALPER N,A PATIENT (WNR) (M) A 2006 [id number] 00 RNOLD MEDICARE MEDICARE PART Jun 01, PART B [id number] HALPER N,A PATIENT (WNR) (M) B 2006 [id number] 00 RNOLD MEDICARE MEDICARE PART Jun 01, PART A [id number] HALPER N,A PATIENT (WNR) (M) A 2006 38A 2 RNOLD MEDICARE MEDICARE PART Jun 01, PART B [id number] HALPER N,A PATIENT (WNR) (M) B 2006 38A 2 RNOLD MEDICARE MEDICARE PART Jun 01, PART A [id number] [id number] Chetan DAVID PATIENT (WNR) (M) Chetan 2006 [id number] 2 RNOLD Selected Encounter This section includes the information on record at PR for the Encounter. 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 Date/Time Primary/Secondary Diagnosis Name Provider Source Diagnosis Feb 20, 2022 PRIMARY USP (current) ROBBY THURSTON 02:00 PM use of [place] [facility] anticoagulants Plan of Treatment: Future Appointments (+ 6 months) and Future Tests (+/- 45 days) The Plan of Treatment section includes future care activities for the patient from all PR treatmentfacilities. This section includes future appointments and future orders which are active, pending orscheduled.Future Appointments This section includes appointments that were scheduled to occur 6 months from the date of the Encounter, up to a maximum of 20 appointments. The data comes from all PR treatment facilities. Appointment Date/Time Appointment Type Appointment Facili ty Name Apr 16, 2022 08:30 AM AMBULATORY [place] [facility] Jun 12, 2022 08:30 AM AM[place] [facility] Jun 12, 2022 11:00 AM AM[facility]ULATORY - [place] [facility] [facility] 20[facility] 09:00 AM [facility] - [facility] Lab Results: +/- 30 days of the encounter This section includes the Chemistry and Hematology Lab Results on record with PR for the patient. Radiology Reports and Pathology Reports are provided separately, in subsequent sections.Lab Results This section contains the Chemistry/Hematology Results that were resulted 30 days before or 30 daysafter the date of the Encounter. Date/Time Source Result Type Result - Unit Interpretation Reference Range Comment Feb 19, 2022 [facility] CREATININE WITH eGFR Specimen Type: PLASMA 10:36 AM PANEL Comment: Tests performed on Tus reQRdos (405) [id number] Ordering Provid er: HIREN PETERSON Report Released Date/Time: Aug 07, 2021 02:40 PM Reporting Lab[facility] [address] [address] Performing Lab: [facility] [address] [address] CREATININE 1.35 0.5-1.5 eGFR(CKD-EPI 2020) 53 L >60 Feb 19, 2022 10:36 AM [facility] CBC PROFILE Specime n Type: BLOOD No comment enter ed. Ordering Provid er: HIREN PETERSON Report Released Date/Time: Aug 07, 2021 02:40 PM Reporting Lab[facility] [address] [address] Performing Lab: [facility] [address] [address] WBC 5.0 4.5-11.0 RBC 4.99 4.23-5.66 HGB [...] smoking and tobacco-related health factors from the PR facility where the Encounter took place.Current Smoking Status This section includes the most current smoking, or tobacco-related health factor, from the PR facility where the Encounter took place. Date/Time Current Smoking Status Comment Facility May 28, 2020 02:23 PM VA-TOBACCO QUIT 15 YRS OR MORE [place] [facility] Tobacco Use History This section includes a history of the smoking, or tobacco- related health factors, that were collected on or before the date of the Encounter. The data comes from the PR facility where the Encounter took place. Date/Time Smoking Status/Tobacco Use Comment [facility] May 28, 2020 02:23 PM VA-TOBACCO QUIT 15 YRS OR [place] MORE [facility] Dec 29, 2018 03:56 PM VA-TOBACCO FORMER USER [place] [facility] Dec 29, 2018 03:56 PM VA-TOBACCO QUIT 5 TO < 15 [place] YRS [facility] Sep 04, 2015 08:54 PM QUIT TOBACCO USE > 7 YEARS [place] A[place] [facility] Jul 31, 2005 02:57 PM HISTORY OF SMOKING [place] Pt. quit 25 years ago. [facility] Jul 30, 2004 02:24 PM H[place]ORY OF SMOKING [place]. quit about 30 years ago. [facility] Jan 16, 2004 09:21 AM QUIT TOBACCO USE > 7 YEARS [place] A[place] 30 years ago [facility] Jun 20, 2003 01:47 PM H[place]ORY OF SMOKING [place] Pt. quit 25 years ago. [facility] Jun 08, 2002 02:23 PM H[place] OF SMOKING [place] [facility] Jun 09, 2001 05:10 PM H[place] OF SMOKING [place] [facility] Encounter Notes: All associated encounter notes This section contains the clinical notes associated to the Encounter. Date/Time Encounter Note(s) Provider Source Feb 20, 2022 10:09 AM E & M OF ANTICOAGULATION NOTE: ANDREW THURSTON LOCAL TITLE: Anticoagulation Clinic/[employer] [facility] STANDARD TITLE: E & M OF ANTICOAGULATION NOTE DATE OF NOTE: FEB 20, 2022@10:09 ENTRY DATE: FEB 20, 2022@10:09:18 AUTHOR: ROBBY THURSTON EXP COSIGNER: URGENCY: STATUS: COMPLETED MR. KAYODE CASTRO [address] [place], [place] [address] Purpose of visit: Follow-up anticoagulation clin ic [...] ISH TH THREE ACTIVE TIMES A DAY [ X ] Medication reconciliation completed, any d ifferences are listed below: Factors affecting anticoagulation: Medication change none Alcohol change none Acute illness none Medication compliance denies missing doses Bleeding/thromboembolic complications: Bruising denies Gingival bleeding denies Nosebleeds denies Hematuria denies Blood in stools denies Signs of CVA/TIA denies LE swelling/pain denies Shortness of breath denies Other side effects: denies Falls/injuries denies Tests/Procedures none Other issues: none noted Indication for anticoagulation: atrial fibrillat ion s/p DVT and/or PE 2014 lung cancer Anticoagulation initiated: 09/2015 (VKA -> LMWH) , 07/2020 (LMWH->DOAC) 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 Pertinent labs are stable and WNL. Drug/dose ap propriate for renal function/indication/age/wt. Informed vete ran of clinic change to management by PCP. He verbalized gregorioi michelle. Plan: Continue current anticoagulation regimen DOAC Regimen: apixaban 5mg Q12H Future follow-up: CBC, SCr, AST/ALT in 12 months Patient Education: [X] s/sx bleeding/thrombosis and ER precautions [X] importance of correct dose/dosing schedule [X] importance of medication compliance [X] importance of reporting medication changes, planned procedures, change in health care statu s to clinic [X] TC to patient/spouse/caregiver who was able to verbalize understanding of above instructions. [ ] Voice mail left for patient with instruction s [ ] Written instructions mailed to patient [X] Rx ordered [ ] Rx/Lab orders faxed to: /ivy/ ROBBY THURSTON Clinical Pharmacist Signed: 02/20/2022 11:41
--- OUTSIDE RECORDS SUMMARY | 2022-07-17 12:32 | XMS_ITS | Encounter Summary ---
:1940 Author Organization Department [facility] Address [address] [place] [address] Support Name Relationship Address Phone BLAS CASTRO Unavailable [address] [facility] [place] [address] BLAS CASTRO Unavailable [address] [facility] [place] [address] THEA CASTRO Unavailable [address] [place] [address] Insurance Providers: All historical and current Section [...] [place] PREFERRED STAND Jun 01 [id number] [phone] CHERIE PERN,A PATIENT (FEDERAL) PROVIDER MACY 2006 70 7 RNOLD ORGANIZAT FAMIL ION (PPO) Y 105 BCBS OF PREFERRED STAND Nov 01 [id number] [phone] HALPER N,A PATIENT MASS FEP PROVIDER MACY 2004 70 6 RNOLD ORGANIZAT FAMIL ION (PPO) Y BCBS OF DENTAL STAND Nov 01, DENTAL [id number] [phone] MATTHEW,A PATIENT MASS FEP INSURANCE MACY 2004 70 6 RNOLD DENTAL [place] PREFERRED STAND Nov 01, [id number] [phone] CHERIE PERN,A PATIENT FEDERAL PROVIDER MACY 2020 70 4 RNOLD ORGANIZAT SELF ION (PPO) [place] PREFERR[place] Nov 01, [id number] [phone] CHERIE PERN,A PATIENT FEDERAL PROVIDER MACY 2004 70 4 RNOLD ORGANIZAT FAMIL ION (PPO) Y [employer] PRESCRIPT FEP Nov 02, [id number] [phone] HALP GURJIT,A PATIENT ([id number]) ION 2010 0 70 7 RNOLD [place] PRESCRIPT CAREM Nov 01, [id number] [phone] HALP GURJIT,A PATIENT FEP BCBS ION ARK 2011 0 70 1 RNOLD FEPRX PLAN [place]-F PRESCRIPT BCBS Nov 01, [id number] [phone] QUIÑONES LPERN,A PATIENT EP BCBS ION FEP 2011 0 70 331 RNOLD PLAN MEDICARE MEDICARE PART Jun 01, PART B [id number] [id number] HALPER N,A PATIENT (WNR) (M) B 2006 XF33 2 RNOLD MEDICARE MEDICARE PART Jun 01, PART A [id number] HALPER N,A PATIENT (WNR) (M) A 2006 XF33 2 RNOLD MEDICARE MEDICARE PART Jun 01, PART B [id number] HALPER N,A PATIENT (WNR) (M) B 2006 XF33 2 OLD MEDICARE MEDICARE PART Jun 01, PART A [id number] HALPER N,A PATIENT (WNR) (M) A 2006 38A 00 RNOLD MEDICARE MEDICARE PART Jun 01, PART B [id number] HALPER N,A PATIENT (WNR) (M) B 2006 38A 00 RNOLD MEDICARE MEDICARE PART Jun 01, PART A [id number] HALPER N,A PATIENT (WNR) (M) A 2006 [id number] 00 RNOLD MEDICARE MEDICARE PART Jun 01, PART B [id number] HALPER N,A PATIENT (WNR) (M) B 2006 [id number] 00 RNOLD MEDICARE MEDICARE PART Jun 01, PART A [id number] HALPER N,A PATIENT (WNR) (M) A 2006 38A 2 RNOLD MEDICARE MEDICARE PART Jun 01, PART B [id number] HALPER N,A PATIENT (WNR) (M) B 2006 38A 2 RNOLD MEDICARE MEDICARE PART Jun 01, PART A [id number] Chetan DAVID PATIENT (WNR) (M) A 2006 [id number] 2 RNOLD Selected Encounter This section includes the information on record at NE for the Encounter. Date/Time Encounter Type Encounter Description Reason Provider Source Jun 22, 2022 04:38 Outpatient Encounter OPHTHALMOLOGY PM IHE Encounter Template Text not used by NE Plan of Treatment: Future Appointments (+ 6 months) and Future Tests (+/- 45 days) The Plan of Treatment section includes future care activities for the patient from all [place] treatmentfacilities. This section includes future appointments and future orders which are active, pending orscheduled.Future Appointments This section includes appointments that were scheduled to occur 6 months from the date of the Encounter, up to a maximum of 20 appointments. The data comes from all [place] treatment facilities. Appointment Date/Time Appointment Type Appointment Facili ty Name 2022 09:00 AM AMBULATORY - [facility]INE [facility] Aug 24, 2022 11:00 AM AMBULATORY - SURGERY [facility] Sep 04, 2022 03:00 PM AMBULATORY - SURGERY [place] [facility] Active, Pending, and Scheduled Orders This section includes a listing of several types of active, pending, and scheduled orders, including clinic medications orders, diagnostic test orders, procedure orders and consult orders; where the start date of the order is 45 days before the date of the Encounter or 45 days after the date of the Encounter. The data comes from all NE treatment facilities. Test Date/Time Test Type Test Details Facility Name Jun 18, 2022 09:27 AM Consult Order [facility]MOLOGY [facility] Cons Photo Tube Assembler's Choice Lab Results: +/- 30 days of the encounter This section includes the Chemistry and Hematology Lab Results on record with [place] for the patient. Radiology Reports and Pathology Reports are provided separately, in subsequent sections.Lab Results This section contains the Chemistry/Hematology Results that were resulted 30 days before or 30 daysafter the date of the Encounter. Date/Time Source Result Type Result - Unit Interpretation Reference Range Comment 2022 09:29 AM [facility] PSA (IMMIGRATION COORDINATOR) Specime n Type: SERUM Comment: Testin g Performed on Mena Disc Sander (405) [id number] Ordering Provid er: CHRISTOPHER CARCAMO Report Released Date/Time: 2022 09:27 AM Reporting Lab: [facility] [address] [facility] [place] [facility] [address] Performing Lab: [facility] [address] [facility] [place] [facility] PSA (IMMIGRATION COORDINATOR) 1.37 0-4.0 2022 09:29 [facility] P4 GLU,BUN,CREAT,LYTES,CA Specimen Type: PLASMA AM Comment: Tests performed on Tinypass (405) [id number] Ordering Provid er: CHRISTOPHER CARCAMO Report Released Date/Time: 2022 09:27 AM Reporting Lab: [facility] [address] [facility] [place] [facility] [address] Performing Lab: [facility] [address] [facility] [place] [facility] [address] UREA NITROGEN 26 H 7-25 SODIUM 138 135-145 POTASSIUM 4.6 3.5-5.0 CHLORIDE 103 100-110 CARBON DIOXIDE 29 20-30 ANION GAP 6 4-16 GLUCOSE 95 65-100 CREATININE 1.46 0.5-1.5 CALCIUM 9.4 8.5-10.5 eGFR(CKD-EPI 2020) 48 L >60 2022 09:29 AM [facility] CBC PROFILE Specime n Type: BLOOD No comment enter ed. Ordering Provid er: CHRISTOPHER CARCAMO Report Released Date/Time: 2022 09:27 AM Reporting Lab: [facility] [address] [facility] [place] [facility] [address] Performing Lab: [facility] [address] [facility] [place] [facility] [address] WBC 4.4 L 4.5-11.0 RBC 4.90 4.23-5.66 HGB 14.6 12.8-17 HEMATOCRIT 46.4 39.2-50.4 MCV 94.7 82-99 MCH 29.8 26.2-32.6 MCHC 31.5 30.8-35.1 PLT 154 140-360 MPV 10.7 9.2-12.4 RDW 13.2 12.0-16.0 LYMPH % 13.6 L 14.0-42.3 MONO % 12.2 5.1-13.7 NEUT % 63.4 43.7-75.8 EOS % 9.7 H 0.4-6.8 BASO % 0.9 0.1-2.0 IG % 0.2 0.0-0.7 NUCLEATED RED CELLS 0.0 0.0-0.0 ABSOLUTE IG 0.0 0-0.06 ABSOLUTE BASOPHILS 0.0 L 0.01-0.13 ABSOLUTE EOS. 0.4 0.03-0.44 ABSOLUTE LYMPHOCYTES 0.6 L 1.0-3.2 ABSOLUTE MONOCYTES 0.5 0.3-1.1 ABSOLUTE GRANULOCYTES 2.8 2.2-7.6 ABSOLUTE NRBC 0.00 0-0 Encounter Notes: All associated encounter notes This section contains the clinical notes associated to the Encounter. Date/Time Encounter Note(s) Provider Source Jun 22, 2022 04:38 PM ADMINISTRATIVE NOTE: MARCIE BARROSO [facility] LOCAL TITLE: UNABLE TO CONTACT FOR SCHEDULING STANDARD TITLE: ADMINISTRATIVE NOTE DATE OF NOTE: JUN 22, 2022@16:38 ENTRY DATE: JUN 22, 2022@16:38:48 AUTHOR: MARCIE BARROSO EXP COSIGNER: URGENCY: STATUS: COMPLETED DEPARTMENT OF [address] [address] JUN 22, 2022 PARVEEN CASTRO [address] [place] [id number] Dear Parveen Castro, We received a referral/consult to refer you to C ataract evaluation. We have been trying to reach you by phone and quiñones ve been unsuccessful. If you are interested in scheduling an appointme nt, please call us at [phone]. If we do not receive a call within the next 14 d ays, your referral/consult will be returned to the requesting provider. If this happens, your provider can resubmit a referral/consult to our clinic at any time if you change your mind. Sincerely, Ophthalmology [phone]
--- OUTSIDE RECORDS SUMMARY | 2022-07-17 12:32 | XMS_ITS | Encounter Summary ---
:1940 Author Organization Department [facility] Address [address] [place] [address] Support Name Relationship Address Phone BLAS CASTRO Unavailable [phone] [place] [address] BLAS CASTRO Unavailable [address] [facility] [place] [address] THEA CASTRO Unavailable [address] [place] [address] Insurance Providers: All historical and current Section [...] [place]REF[place] Jun 01 [id number] [phone] CHERIE PERN,A PATIENT (FEDERAL) PROVIDER MACY 2006 70 7 RNOLD ORGANIZAT FAMIL ION (PPO) Y 105 BCBS OF PREFERRED STAND Nov 01, [id number] [phone] HALPER N,A PATIENT MASS FEP PROVIDER MACY 2004 70 6 RNOLD ORGANIZAT FAMIL ION (PPO) Y BCBS OF DENTAL STAND Nov 01, DENTAL [id number] [phone] MATTHEW,A PATIENT MASS FEP INSURANCE MACY 2004 70 6 RNOLD DENTAL [place] PREFERRED STAND Nov 01, [id number] [phone] CHERIE PERN,A PATIENT FEDERAL PROVIDER MACY 2020 70 4 RNOLD ORGANIZAT SELF ION (PPO) [place] PREFERRED [place] Nov 01, 105 [id number] [phone] CHERIE PERN,A PATIENT FEDERAL PROVIDER MACY 2005 70 4 RNOLD ORGANIZAT FAMIL ION (PPO) Y CAREMARK PRESCRIPT FEP Nov 02, [id number] [phone] HALP GURJIT,A PATIENT ([id number]) ION 2011 0 70 7 RNOLD CAREMARK PRESCRIPT CAREM Nov 01, [id number] [phone] HALP GURJIT,A PATIENT FEP BCBS ION ARK 2011 0 70 1 RNOLD FEPRX PLAN [place]ARK-F PRESCRIPT BCBS Nov 01, [id number] [phone] QUIÑONES LPERN,A PATIENT EP BCBS ION FEP 2011 0 [id number] 331 RNOLD PLAN MEDICARE MEDICARE PART Jun 01, PART B [id number] HALPER N,A PATIENT (WNR) (M) B 2006 XF33 2 RNOLD MEDICARE MEDICARE PART Jun 01, PART A [id number] [id number] HALPER N,A PATIENT (WNR) (M) A 2006 XF33 2 RNOLD MEDICARE MEDICARE PART Jun 01, PART B [id number] [phone] HALPER N,A PATIENT (WNR) (M) B 2006 XF33 2 RNOLD MEDICARE MEDICARE PART Jun 01, PART A [id number] HALPER N,A PATIENT (WNR) (M) A 2006 38A 00 RNOLD MEDICARE MEDICARE PART Jun 01, PART B [id number] HALPER N,A PATIENT (WNR) (M) B 2006 38A 00 RNOLD MEDICARE MEDICARE PART Jun 01, PART A [id number] [phone] HALPER N,A PATIENT (WNR) (M) A 2006 [id number] 00 RNOLD MEDICARE MEDICARE PART Jun 01, PART B [id number] HALPER N,A PATIENT (WNR) (M) B 2006 [id number] 00 RNOLD MEDICARE MEDICARE PART Jun 01, PART A [id number] HALPER N,A PATIENT (WNR) (M) A 2006 38A 2 RNOLD MEDICARE MEDICARE PART Jun 01, PART B [id number] HALPER N,A PATIENT (WNR) (M) B 2006 38A 2 RNOLD MEDICARE MEDICARE PART Jun 01, PART A [id number] Chetan DAVID PATIENT (AMARILYS) (M) A 2006 XF33 2 RNOLD Selected Encounter This section includes the information on record at CT for the Encounter. Date/Time Encounter Type Encounter Reason Provider Source Description Feb 19, 2022 ADM SARSCOV2 GENERAL INTERNAL ICD-10-CM Z23 TAN GOOD 10:30 AM 50MCG/0.25MLBST MEDICINE Encounter for HER immunization with Provider Comments: Encounter for immunization IHE Encounter Template Text not used by CT Assessments - Encounter Diagnoses This section includes the primary and secondary diagnoses documented for the Encounter. Date/Time Primary/Secondary Diagnosis Name Provider Source Diagnosis Feb 19, 2022 PRIMARY Encounter for EVA [facility] 04:21 PM immunization ER CLINIC Plan of Treatment: Future Appointments (+ 6 [...] Appointment Type Appointment Facili ty Name Feb 20, 2022 02:00 PM [place] [facility] Apr 16, 2022 08:30 AM [place] [place] [facility] Jun 12, 2022 08:30 AM [facility] [place] [facility] Jun 12, 2022 11:00 AM [place] [facility] 2022 09:00 AM AMBULATORY - MEDICINE [facility] C Lab Results: +/- 30 days of the encounter This section includes the Chemistry and Hematology Lab Results on record with CT for the patient. Radiology Reports and Pathology Reports are provided separately, in subsequent sections.Lab Results This section contains the Chemistry/Hematology Results that were resulted 30 days before or 30 daysafter the date of the Encounter. Date/Time Source Result Type Result - Unit Interpretation Reference Range Comment Feb 19, 2022 [facility] CREATININE WITH eGFR Specimen Type: PLASMA 10:36 AM PANEL Comment: Tests performed on GoingOn (405) [id number] Ordering Provid er: HIREN PETERSON Report Released Date/Time: Aug 07, 2021 02:40 PM Reporting Lab: [facility] [address] [facility] [address] Performing Lab: [facility] [address] [facility] [address] CREATININE 1.35 0.5-1.5 eGFR(CKD-EPI 2020) 53 L >60 Feb 19, 2022 10:36 AM [facility] CBC PROFILE Specime n Type: BLOOD No comment enter ed. Ordering Provid er: HIREN PETERSON Report Released Date/Time: Aug 07, 2021 02:40 PM Reporting Lab: [facility] [address] [facility] [address] Performing Lab: [facility] [address] [facility] [address] WBC 5.0 4.5-11.0 RBC 4.99 4.23-5.66 HGB [...] GRANULOCYTES 3.5 2.2-7.6 ABSOLUTE NRBC 0.00 0-0 Immunizations: All administered on the encounter date This section contains immunizations associated to the Encounter. Immunization Series Date Issued Reaction Comments COVID-19 (MODERNA), MRNA, 3 Feb 19, 2022 MO D; [id number]; 05/14/2022 LNP-S, PF, 100 MCG/0.5ML DOSE OR 50 MCG/0.25ML DOSE Encounter Notes: All associated encounter notes This section contains the clinical notes associated to the Encounter. Date/Time Encounter Note(s) Provider Source Feb 19, 2022 10:30 AM NURSING IMMUNIZATION NOTE: SONDRA GOOD [facility] LOCAL TITLE: [facility] COVID-19 VACCINE ADMINIS TRATION STANDARD TITLE: NURSING IMMUNIZATION NOTE DATE OF NOTE: FEB 19, 2022@10:30 ENTRY DATE: FEB 19, 2022@16:19:46 AUTHOR: HIREN GOOD EXP COSIGNER: URGENCY: STATUS: COMPLETED The patient was given the vaccine information fa ct sheet for this vaccine which lists the benefits and side effect s of the vaccine and which reviews the risks of the vaccine. The fact sheet was reviewe d with the patient and they were given an opportunity to ask questions. The patient denied any prior severe reaction to this vaccine or its components or a severe allergic reaction such as anaphylaxis to any vaccine or to any injectab le therapy. The patient gave verbal consent to receive the vaccine. Booster Dose (half-dose): The patient received Moderna COVID-19 Vaccine 0 .25 ml IM. Series: Series 3 MVX (Manuf); Lot#; Exp Date: MOD; [id number]; 05/01 Administration Anatomic site: Left Deltoid Vaccine administered without complications. The patient was advised to remain in the facility for 15 minute s post vaccination. The patient was given a completed COVID-19 vacc ination record card, a copy of the CT Side Effects and Adverse Event s Reporting Fact Sheet and instructed on how to report any adver se reactions. /ivy/ HIREN GODO LPN Signed: 02/19/2022 16:21
--- OUTSIDE RECORDS SUMMARY | 2022-07-17 12:33 | XMS_ITS | Encounter Summary ---
:1940 Author Organization Department [facility] Address [address] [place] [address] Support Name Relationship Address Phone BLAS CASTRO Unavailable [address] [place] [address] BLAS CASTRO Unavailable [address] [facility] [address] THEA CASTRO Unavailable [address] [place] [address] Insurance Providers: All historical and current Section [...] [place] Jun 01 [id number] [phone] CHERIE PERN,A PATIENT (FEDERAL) PROVIDER MACY 2006 70 7 RNOLD ORGANIZAT FAMIL ION (PPO) Y 105 BCBS OF PREFERRED STAND Nov 01 [id number] [phone] HALPER N,A PATIENT MASS FEP PROVIDER MACY 2004 70 6 RNOLD ORGANIZAT FAMIL ION (PPO) Y BCBS OF DENTAL STAND Nov 01, DENTAL [id number] [phone] MATTHEW,A PATIENT MASS FEP INSURANCE MACY 2004 70 6 RNOLD DENTAL [place] PREF[place] Nov 01, [id number] [phone] CHERIE PERN,A PATIENT FEDERAL PROVIDER MACY 2020 70 4 RNOLD ORGANIZAT SELF ION (PPO) [place] Nov 01, [id number] [phone] CHERIE PERN,A PATIENT FEDERAL PROVIDER MACY 2004 70 4 RNOLD ORGANIZAT FAMIL ION (PPO) Y CAREMARK PRESCRIPT FEP Nov 02, [id number] [phone] HALP GURJIT,A PATIENT ([id number]) ION 2010 0 70 7 RNOLD CAREMARK PRESCRIPT CAREM Nov 01, [id number] [phone] HALP GURJIT,A PATIENT FEP BCBS ION ARK 2011 0 70 1 RNOLD FEPRX PLAN [place]-F PRESCRIPT BCBS Nov 01, [id number] [phone] QUIÑONES LPERN,A PATIENT EP BCBS ION FEP 2011 0 70 331 RNOLD PLAN MEDICARE MEDICARE PART Jun 01, PART B [id number] [id number] HALPER N,A PATIENT (WNR) (M) B 2006 XF33 2 RNOLD MEDICARE MEDICARE PART Jun 01, PART A [id number] [id number] HALPER N,A PATIENT (WNR) (M) A 2006 XF33 2 RNOLD MEDICARE MEDICARE PART Jun 01, PART B [id number] [phone] HALPER N,A PATIENT (WNR) (M) B 2006 XF33 2 OLD MEDICARE MEDICARE PART Jun 01, PART A [id number] HALPER N,A PATIENT (WNR) (M) A 2006 38A 00 RNOLD MEDICARE MEDICARE PART Jun 01, PART B [id number] HALPER N,A PATIENT (WNR) (M) B 2006 38A 00 RNOLD MEDICARE MEDICARE PART Jun 01, PART A [id number] HALPER N,A PATIENT (WNR) (M) A 2006 XF33 00 RNOLD MEDICARE MEDICARE PART Jun 01, PART B [id number] HALPER N,A PATIENT (WNR) (M) B 2006 [id number] 00 RNOLD MEDICARE MEDICARE PART Jun 01, PART A [id number] HALPER N,A PATIENT (WNR) (M) A 2006 38A 2 RNOLD MEDICARE MEDICARE PART Jun 01, PART B [id number] [id number] HALPER N,A PATIENT (WNR) (M) B 2006 38A 2 RNOLD MEDICARE MEDICARE PART Jun 01, PART A [id number] [id number] Chetan DAVID PATIENT (WNR) (M) A 2006 XF33 2 RNOLD Selected Encounter This section includes the information on record at [place] for the Encounter. Date/Time Encounter Type Encounter Description Reason Provider Source Aug 24, 2022 11:00 Outpatient Encounter OPHTHALMOLOGY AM IHE Encounter Template Text not used by AL Plan of Treatment: Future Appointments (+ 6 months) and Future Tests (+/- 45 days) The Plan of Treatment section includes future care activities for the patient from all [place] treatmentfacilities. This section includes future appointments and future orders which are active, pending orscheduled.Future Appointments This section includes appointments that were scheduled to occur 6 months from the date of the Encounter, up to a maximum of 20 appointments. The data comes from all [place] treatment facilities. Appointment Date/Time Appointment Type Appointment Facili ty Name Sep 04, 2022 03:00 PM AM[place]ORY - [place] [facility] Feb 16, 2023 07:30 AM [facility] - [place] [facility] Encounter Notes: All associated encounter notes This section contains the clinical notes associated to the Encounter. Date/Time Encounter Note(s) Provider Source Jun 25, 2022 02:56 PM SURGERY NOTE: KAYE MARTIN [facility] LOCAL TITLE: SURGICAL SCHEDULING OPHTHALMOLOGY STANDARD TITLE: SURGERY NOTE DATE OF NOTE: JUN 25, 2022@14:56 ENTRY DATE: JUN 25, 2022@14:56:11 AUTHOR: KAYE MARTIN EXP COSIGNER: URGENCY: STATUS: COMPLETED MIRTA Carmona sent message to this writer editor reporting on a consult she is working on for this ... Kamari Guerra, thanks for your help. I offer ed Mr. Mtathew Saini [phone] Cat eval on Aug 24 at 11am. /ivy/ KAYE MARTIN [employer]ER Signed: 06/25/2022 14:57 Receipt Acknowledged By: * AWAITING SIGNATURE * JONNATHAN VALERIO * AWAITING SIGNATURE * DAVID MULLER
--- OUTSIDE RECORDS SUMMARY | 2022-07-17 12:33 | XMS_ITS | Encounter Summary ---
:1940 Author Organization Department [facility] Address [address] [place] [address] Support Name Relationship Address Phone BLAS CASTRO Unavailable [address] [place] [address] BLAS CASTRO Unavailable [address] [facility] [place] [address] THEA CASTRO Unavailable [address] [place] [address] Insurance Providers: All historical and current Section [...] [place] Jun 01, [id number] [phone] CHERIE PERN,A PATIENT (FEDERAL) PROVIDER MACY 2006 70 7 RNOLD ORGANIZAT FAMIL ION (PPO) Y 105 BCBS OF PREFERRED STAND Nov 01 [id number] [phone] HALPER N,A PATIENT MASS FEP PROVIDER MACY 2004 70 6 RNOLD ORGANIZAT FAMIL ION (PPO) Y BCBS OF DENTAL STAND Nov 01, DENTAL [id number] [phone] MATTHEW,A PATIENT MASS FEP INSURANCE MACY 2004 70 6 RNOLD DENTAL [place]REF[place] Nov 01, 104 [id number] [phone] CHERIE PERN,A PATIENT FEDERAL PROVIDER MACY 2020 70 4 RNOLD ORGANIZAT SELF ION (PPO) [place] Nov 01, 105 [id number] [phone] CHERIE PERN,A PATIENT FEDERAL PROVIDER MACY 2005 70 4 RNOLD ORGANIZAT FAMIL ION (PPO) Y CAREMARK PRESCRIPT FEP Nov 02, [id number] [phone] HALP GURJIT,A PATIENT ([id number]) ION 2011 0 70 7 RNOLD CAREMARK PRESCRIPT CAREM Nov 01, [id number] [phone] HALP GURJIT,A PATIENT FEP BCBS ION ARK 2011 0 70 1 RNOLD FEPRX PLAN [place]-F PRESCRIPT BCBS Nov 01, [id number] [phone] QUIÑONES LPERN,A PATIENT EP BCBS ION FEP 2011 0 70 331 RNOLD PLAN MEDICARE MEDICARE PART Jun 01, PART B [id number] HALPER N,A PATIENT (WNR) (M) B 2006 XF33 2 RNOLD MEDICARE MEDICARE PART Jun 01, PART B [id number] [id number] HALPER N,A PATIENT (WNR) (M) B 2006 XF33 2 RNOLD MEDICARE MEDICARE PART Jun 01, PART A [id number] [id number] HALPER N,A PATIENT (WNR) (M) A 2006 XF33 2 RNOLD MEDICARE MEDICARE PART Jun 01, PART A [id number] HALPER N,A PATIENT (WNR) (M) A 2006 38A 00 RNOLD MEDICARE MEDICARE PART Jun 01, PART B [id number] HALPER N,A PATIENT (WNR) (M) B 2006 38A 00 RNOLD MEDICARE MEDICARE PART Jun 01, PART A [id number] [phone] HALPER N,A PATIENT (WNR) (M) A 2006 XF33 00 RNOLD MEDICARE MEDICARE PART Jun 01, PART B [id number] HALPER N,A PATIENT (WNR) (M) B 2006 XF33 00 RNOLD MEDICARE MEDICARE PART Jun 01, PART A [id number] HALPER N,A PATIENT (WNR) (M) A 2006 38A 2 RNOLD MEDICARE MEDICARE PART Jun 01, PART B [id number] HALPER N,A PATIENT (WNR) (M) B 2006 38A 2 RNOLD MEDICARE MEDICARE PART Jun 01, PART A [id number] Chetan DAVID PATIENT (WNR) (M) A 2006 [id number] 2 RNOLD Selected Encounter This section includes the information on record at NH for the Encounter. Date/Time Encounter Type Encounter Description Reason Provider Source Apr 16, 2022 09:55 Outpatient Encounter EVENT (HISTORICAL) AM IHE Encounter Template Text not used by NH Plan of Treatment: Future Appointments (+ 6 months) and Future Tests (+/- 45 days) The Plan of Treatment section includes future care activities for the patient from all NH treatmentfacilities. This section includes future appointments and future orders which are active, pending orscheduled.Future Appointments This section includes appointments that were scheduled to occur 6 months from the date of the Encounter, up to a maximum of 20 appointments. The data comes from all NH treatment facilities. Appointment Date/Time Appointment Type Appointment Facili ty Name Jun 12, 2022 08:30 AM AMBULATORY - SURGERY [facility] Jun 12, 2022 11:00 AM AMBULATORY - REHAB MEDICINE [facility] [facility] 2022 09:00 AM [facility] Aug 24, 2022 11:00 AM AMBULATORY - SURGERY [facility] Sep 04, 2022 03:00 PM AM[facility]ULATORY - SURGERY [facility] Social History: Smoking Status (Most current) and Tobacco Use (All prior to encounter date) This section includes the most current, and the historical, smoking and tobacco-related health factors from the NH facility where the Encounter took place.Current Smoking Status This section includes the most current smoking, or tobacco-related health factor, from the [facility] facility where the Encounter took place. Date/Time Current Smoking Status Comment Facility May 28, 2020 02:23 PM VA-TOBACCO QUIT 15 YRS OR MORE [facility] Tobacco Use History This section includes a history of the smoking, or tobacco- related health factors, that were collected on or before the date of the Encounter. The data comes from the NH facility where the Encounter took place. Date/Time Smoking Status/Tobacco Use Comment [facility] May 28, 2020 02:23 PM NH-TOBACCO QUIT 15 YRS OR [facility] [place] [facility] Dec 29, 2018 03:56 PM VA-TOBACCO FORMER USER [place] [facility] Dec 29, 2018 03:56 PM VA-TOBACCO QUIT 5 TO < 15 [place] YRS [facility] Sep 04, 2015 08:54 PM QUIT TOBACCO USE > 7 YEARS [place] A[place] [facility] Jul 31, 2005 02:57 PM H[place]ORY OF SMOKING [place] quit 25 years ago. [facility] Jul 30, 2004 02:24 PM H[place] OF SMOKING [place]. quit about 30 years ago. [facility] Jan 16, 2004 09:21 AM QUIT TOBACCO USE > 7 YEARS [place] 30 years ago [facility] Jun 20, 2003 01:47 PM H[place] OF SMOKING [place] Pt. quit 25 years ago. [facility] Jun 08, 2002 02:23 PM [place]MO[place] [facility] Jun 09, 2001 05:10 PM H[place] OF [place]MOKING [place] [facility]
--- OUTSIDE RECORDS SUMMARY | 2022-07-17 12:33 | XMS_ITS | Encounter Summary ---
:1940 Author Organization [facility] Address [address] [place] [address] Support Name Relationship Address Phone BLAS CASTRO Unavailable [phone] [place] [address] BLAS CASTRO Unavailable [phone] [facility] [place] [address] THEA CASTRO Unavailable [address] [place] [address] Insurance Providers: All historical and current Section [...] [place] PREFERRED STAND Jun 01 [id number] [phone] CHERIE PERN,A PATIENT (FEDERAL) PROVIDER MACY 2006 70 7 RNOLD ORGANIZAT FAMIL ION (PPO) Y 105 BCBS OF PREFERRED STAND Nov 01 [id number] [phone] HALPER N,A PATIENT MASS FEP PROVIDER MACY 2004 70 6 RNOLD ORGANIZAT FAMIL ION (PPO) Y BCBS OF DENTAL STAND Nov 01, DENTAL [id number] [phone] MATTHEW,A PATIENT MASS FEP INSURANCE MACY 2004 70 6 RNOLD DENTAL [place] OF [place] PREFERRED STAND Nov 01, [id number] [phone] CHERIE PERN,A PATIENT FEDERAL PROVIDER MACY 2020 70 4 RNOLD ORGANIZAT SELF ION (PPO) [place] OF [place] PREFERRED STAND Nov 01, [id number] [phone] CHERIE PERN,A PATIENT FEDERAL PROVIDER MACY 2005 70 4 RNOLD ORGANIZAT FAMIL ION (PPO) Y CAREMARK PRESCRIPT FEP Nov 02, [id number] [phone] HALP GURJIT,A PATIENT ([id number]) ION 2011 0 70 7 RNOLD CAREMARK PRESCRIPT CAREM Nov 01, [id number] [phone] HALP GURJIT,A PATIENT FEP BCBS ION ARK 2011 0 70 1 RNOLD FEPRX PLAN CAREMARK-F PRESCRIPT BCBS Nov 01, [id number] [phone] QUIÑONES LPERN,A PATIENT EP BCBS ION FEP 2011 0 [id number] 331 RNOLD PLAN MEDICARE MEDICARE PART Jun 01, PART B [id number] [phone] HALPER N,A PATIENT (WNR) (M) B 2006 [id number] 2 RNOLD MEDICARE MEDICARE PART Jun 01, PART A [id number] [id number] HALPER N,A PATIENT (WNR) (M) A 2006 XF33 2 RNOLD MEDICARE MEDICARE PART Jun 01, PART B [id number] [id number] HALPER N,A PATIENT (WNR) (M) B 2006 XF33 2 RNOLD MEDICARE MEDICARE PART Jun 01, PART A [id number] HALPER N,A PATIENT (WNR) (M) A 2006 38A 00 RNOLD MEDICARE MEDICARE PART Jun 01, PART B [id number] HALPER N,A PATIENT (WNR) (M) B 2006 38A 00 RNOLD MEDICARE MEDICARE PART Jun 01, PART A [id number] [phone] HALPER N,A PATIENT (WNR) (M) A 2006 [id number] 00 RNOLD MEDICARE MEDICARE PART Jun 01, PART B [id number] HALPER N,A PATIENT (WNR) (M) B 2006 [id number] 00 RNOLD MEDICARE MEDICARE PART Jun 01, PART A [id number] [id number] HALPER N,A PATIENT (WNR) (M) A 2006 38A 2 RNOLD MEDICARE MEDICARE PART Jun 01, PART B [id number] [id number] HALPER N,A PATIENT (WNR) (M) B 2006 38A 2 RNOLD MEDICARE MEDICARE PART Jun 01, PART A [id number] Chetan DAVID PATIENT (AMARILYS) (M) A 2006 XF33 2 RNOLD Selected Encounter This section includes the information on record at [place] for the Encounter. Date/Time Encounter Type Encounter Reason Provider Source Description Apr 16, 2022 AFLIBERCEPT OPHTHALMOLOGY ICD-10-CM CAITLIN MICHELE 08:30 AM INJECTION H34.8320 Trib WEBB rtnl vein occlusion, left eye, with macular edema with Provider Comments: Trib rtnl vein occlusion, left eye, with macular edema IHE Encounter Template Text not used by [facility] Assessments - Encounter Diagnoses This section includes the primary and secondary diagnoses documented for the Encounter. 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 This section includes future appointments and future orders which are active, pending orscheduled.Future Appointments This section includes appointments that were scheduled to occur 6 months from the date of the Encounter, up to a maximum of 20 appointments. The data comes from all [place] treatment facilities. Appointment Date/Time Appointment Type Appointment Facili ty Name Jun 12, 2022 08:30 AM AMBULATORY - [place] [facility] Jun 12, 2022 11:00 AM AMBULATORY - REHAB MEDICINE [facility] [place] [facility] 2022 09:00 AM AMBULATORY - MEDICINE [facility] Aug 24, 2022 11:00 AM AMBULATORY - SURGERY [facility] Sep 04, 2022 03:00 PM AMBULATORY - [place] [facility] Social History: Smoking Status (Most current) and Tobacco Use (All prior to encounter date) This section includes the most current, and the historical, smoking and tobacco-related health factors from the [place] facility where the Encounter took place.Current Smoking Status This section includes the most current smoking, or tobacco-related health factor, from the [place] facility where the Encounter took place. Date/Time Current Smoking Status Comment Facility May 28, 2020 02:23 PM VA-TOBACCO QUIT 15 YRS OR MORE [place] [facility] Tobacco Use History This section includes a history of the smoking, or tobacco- related health factors, that were collected on or before the date of the Encounter. The data comes from the [place] facility where the Encounter took place. Date/Time Smoking Status/Tobacco Use Comment [facility] May 28, 2020 02:23 PM VA-TOBACCO QUIT 15 YRS OR [place] [facility] Dec 29, 2018 03:56 PM VA-TOBACCO FORMER USER [place] [facility] Dec 29, 2018 03:56 PM VA-TOBACCO QUIT 5 TO < 15 [place] YRS [facility] Sep 04, 2015 08:54 PM QUIT TOBACCO USE > 7 YEARS [place] AGO [facility] Jul 31, 2005 02:57 PM H[place]ORY OF SMOKING [place] Pt. quit 25 years ago. [facility] Jul 30, 2004 02:24 PM H[place]ORY OF SMOKING [place] Pt. quit about 30 years ago. [facility] Jan 16, 2004 09:21 AM QUIT TOBACCO USE > 7 YEARS [place] AGO 30 years ago [facility] Jun 20, 2003 01:47 PM H[place]ORY OF SMOKING [place] Pt. quit 25 years ago. [facility] Jun 08, 2002 02:23 PM H[place]ORY OF SMOKING [place] [facility] Jun 09, 2001 05:10 PM H[place]ORY OF SMOKING [place] [facility] Encounter Notes: All associated encounter notes This section contains the clinical notes associated to the Encounter. Date/Time Encounter Note(s) Provider Source Apr 16, 2022 07:50 EYE E & M NOTE: CAITLIN MICHELE [place] AM LOCAL TITLE: Eye Exam Template [facility] STANDARD TITLE: EYE E & M NOTE DATE OF NOTE: APR 16, 2022@07:50 ENTRY DATE: APR 16, 2022@07:51 AUTHOR: CAITLIN MICHELE EXP COSIGNER: URGENCY: STATUS: [...] upper lobe of pebbles g (SNOMED CT 10467074) 5. Superficial phlebitis (SNOMED CT 3221392) 6. Acute sinusitis 7. Family History of Malignant Neoplasm of [address] [address] 8. Subjective tinnitus 9. Health Maintenance 10. Enlarged prostate (SNOMED CT 080173943) 11. Sensorineural Hearing Loss, Bilateral 12. Chronic atrial fibrillation (SNOMED CT 82592 9004) 13. Long-term current use of anticoagulant ([facility] ED CT [id number]) 81 year old WHITE MALE, patient CHIEF [...] degeneration: Other: VISUAL ACUITY (with correction) OD: 20/25-1 OS: 20/30-2 PH: 20/25-2 slow OCULAR MOTILITY (EOM): Full without dipl opia [...] neovascularization p resent ou Tonometry: iCare OD 12 OS 13 Time: 0850 DILATION OS: 0850 PATIENT EDUCATED ON SIDE EFFEC TS OF DILATION PRIOR TO DROP INSTILLATION. SIDE [...] PROCEDURE NOTE: LEFT EYE EYLEA INJECTION, LOT #[id number], EXPIR ES 10/2022 ABX: TOPICAL 5% betadine ANESTHESIA: TOPICAL, 4% [...] Lucentis 12/02/12 ([place]), s/p Lucentis 01/2013 at [facility]/Dr. Bashir. -2013 OCT showed full resolution of ME: Was stab le until 01/2019; -DFE 01/2019 OS showed scattered blot hemes and p eripapillary CWS, symptoms re-appeared - apparent BRVO/re-clotting of shunt vessels. Second series of anti VEGF injns: With ME thick- worsening- decision made to begin treatment 01/2019. -Eylea Injection OS [facility] #1 02/24/2019 Post Hiatus for 5 years #2 07/07/2019 -Eylea Injection OS [place] (Dr. Abdulkadir carvajal MD) #3 10/10/2019 #4 ~11/21/2019 -Eylea Injection OS [facility] #5 03/27/2020 #6 06/24/2020 *NO INJN 08/2020 #7 10/18/2020 #8 12/09/2020 *NO INJN 01/2021 #9 03/03/2021 #10 06/13/2021 #11 08/25/2021 #12 11/28/2021 #13 02/09/2022 LUCENTIS #14 04/16/2022 EYLEA On 05/20/2020, at 7 weeks after 03/2020 [...] early Sep, will inject today. - Pt requesting a new pair of DVO specs before l eaving for [place], will place order today. 11/28/2021 [...] last scan, will continue q10-11 week intervals. 04/16/2022- Vision somewhat reduced compared to last visit, pt thinks eyelea works better than lucentis. Overall, VA is worse, symptoms are worse and OCT mac appears worse with lucentis on a shorter follow up interval. Eylea available today, will return to using that . OCT mac shows mild thickening of mac compared to last scan. Will inject today and continue s89-14pyrl intervals. 2. Has Stage 4 lung CA - immunotherapy treatment s extremely successful, but had side effects- Colitis. Did not go to [place] in [id number] *Patient's secondary cardiac & stroke complications* Cut [place] trip short [id number] Abdulkadir Valenzuela in [place] RTC ORDER: -AW: 10-11 weeks Already delma eduled for 06/12/22 for DFE, OCT Mac, likely Injn OS Total time spent during this encounter, sarah lopez [id number] and non-face time, was 30 min /es/ CAITLIN MICHELE MD Signed: 04/16/2022 10:07
--- OUTSIDE RECORDS SUMMARY | 2022-07-17 12:34 | XMS_ITS | Encounter Summary ---
:1940 Author Organization Department [facility] Address [address] [place] [address] Support Name Relationship Address Phone BLAS CASTRO Unavailable [address] [place] [address] THEA CASTRO Unavailable [address] [place] [address] Insurance Providers: All historical and current Section [...] [place] PREFERRED STAND Jun 01, [id number] [phone] CHERIE PERN,A PATIENT (FEDERAL) PROVIDER MACY 2006 70 7 RNOLD ORGANIZAT FAMIL ION (PPO) Y 105 BCBS OF PREFERRED STAND Nov 01, 105 [id number] [phone] HALPER N,A PATIENT MASS FEP PROVIDER MACY 2004 70 6 RNOLD ORGANIZAT FAMIL ION (PPO) Y BCBS OF DENTAL STAND Nov 01, DENTAL [id number] [phone] MATTHEW,A PATIENT MASS FEP INSURANCE MACY 2004 70 6 RNOLD DENTAL [place] PREFERRED STAND Nov 01, 104 [id number] [phone] CHERIE PERN,A PATIENT FEDERAL PROVIDER MACY 2020 70 4 RNOLD ORGANIZAT SELF ION (PPO) [place] OF [place] PREFERRED STAND Nov 01, 105 [id number] [phone] CHERIE PERN,A PATIENT FEDERAL PROVIDER MACY 2004 70 4 RNOLD ORGANIZAT FAMIL ION (PPO) Y CAREMARK PRESCRIPT FEP Nov 02, [id number] [phone] HALP GURJIT,A PATIENT ([id number]) ION 2011 0 70 7 RNOLD CAREMARK PRESCRIPT CAREM Nov 01, [id number] [phone] HALP GURJIT,A PATIENT FEP BCBS ION ARK 2011 0 70 1 RNOLD FEPRX PLAN [place]ARK-F PRESCRIPT BCBS Nov 01, [id number] [phone] QUIÑONES LPERN,A PATIENT EP BCBS ION FEP 2011 0 70 331 RNOLD PLAN MEDICARE MEDICARE PART Jun 01, PART A [id number] [phone] HALPER N,A PATIENT (WNR) (M) A 2006 38A 2 RNOLD MEDICARE MEDICARE PART Jun 01, PART B [id number] [id number] HALPER N,A PATIENT (WNR) (M) B 2006 38A 2 RNOLD MEDICARE MEDICARE PART Jun 01, PART A [id number] [phone] HALPER N,A PATIENT (WNR) (M) A 2006 XF33 2 RNOLD MEDICARE MEDICARE PART Jun 01, PART B [id number] HALPER N,A PATIENT (WNR) (M) B 2006 XF33 2 RNOLD MEDICARE MEDICARE PART Jun 01, PART A [id number] [phone] HALPER N,A PATIENT (WNR) (M) A 2006 XF33 2 RNOLD MEDICARE MEDICARE PART Jun 01, PART B [id number] [phone] HALPER N,A PATIENT (WNR) (M) B 2006 XF33 2 RNOLD MEDICARE MEDICARE PART Jun 01, PART A [id number] [phone] HALPER N,A PATIENT (WNR) (M) A 2006 38A 00 RNOLD MEDICARE MEDICARE PART Jun 01, PART B [id number] [phone] HALPER N,A PATIENT (WNR) (M) B 2006 38A 00 RNOLD MEDICARE MEDICARE PART Jun 01, PART A [id number] [phone] HALPER N,A PATIENT (WNR) (M) A 2006 XF33 00 RNOLD MEDICARE MEDICARE PART Jun 01, PART B [id number] [phone] HALPER N,A PATIENT (WNR) (M) B 2006 [id number] 00 RNOLD Selected Encounter This section includes the information on record at [place] for the Encounter. Date/Time Encounter Type Encounter Description Reason Provider Source Apr 22, 2022 09:33 Outpatient Encounter TELEPHONE TRIAGE AM IHE Encounter Template Text not used by [place] Plan of Treatment: Future Appointments (+ 6 months) and Future Tests (+/- 45 days) The Plan of Treatment section includes future care activities for the patient from all [place] treatmentfacilities. This section includes future appointments and future orders which are active, pending orscheduled.Future Appointments This section includes appointments that were scheduled to occur 6 months from the date of the Encounter, up to a maximum of 20 appointments. The data comes from all [place] treatment facilities. Appointment Date/Time Appointment Type Appointment Facili ty Name Jun 12, 2022 08:30 AM [facility] Jun 12, 2022 11:00 AM AMBULATORY - REHAB MEDICINE [place] [place] [facility] 2022 09:00 AM AMBULATORY - MEDICINE [facility] Aug 24, 2022 11:00 AM AMBULATORY - SURGERY [facility] Sep 04, 2022 03:00 PM [facility] Social History: Smoking Status (Most current) and Tobacco Use (All prior to encounter date) This section includes the most current, and the historical, smoking and tobacco-related health factors from the [place] facility where the Encounter took place.Current Smoking Status This section includes the most current smoking, or tobacco-related health factor, from the [place] facility where the Encounter took place. Date/Time Current Smoking Status Comment Facility May 28, 2020 02:23 PM VA-TOBACCO QUIT 15 YRS OR MORE [facility] Tobacco Use History This section includes a history of the smoking, or tobacco- related health factors, that were collected on or before the date of the Encounter. The data comes from the [place] facility where the Encounter took place. Date/Time Smoking Status/Tobacco Use Comment [facility] May 28, 2020 02:23 PM VA-TOBACCO QUIT 15 YRS OR [place] MORE [facility] Dec 29, 2018 03:56 PM VA-TOBACCO FORMER USER [place] [facility] Dec 29, 2018 03:56 PM VA-TOBACCO QUIT 5 TO < 15 [place] Y[place] [facility] Sep 04, 2015 08:54 PM QUIT TOBACCO USE > 7 YEARS [place] A[place] [facility] Jul 31, 2005 02:57 PM H[place] SMOKING [place] Pt. quit 25 years ago. [facility] Jul 30, 2004 02:24 PM H[place]ORY OF SMOKING [place] Pt. quit about 30 years ago. [facility] Jan 16, 2004 09:21 AM QUIT TOBACCO USE > 7 YEARS [place] AGO 30 years ago [facility] Jun 20, 2003 01:47 PM H[place]ORY OF SMOKING [place] Pt. quit 25 years ago. [facility] Jun 08, 2002 02:23 PM H[place]MOKING [place] [facility] Jun 09, 2001 05:10 PM H[place] OF SMOKING [place] [facility] Encounter Notes: All associated encounter notes This section contains the clinical notes associated to the Encounter. Date/Time Encounter Note(s) Provider Source Apr 22, 2022 09:33 AM PRIMARY CARE MEDICATION MGT NOTE: JOEL ELIZONDO [facility] LOCAL TITLE: Medication Note STANDARD TITLE: PRIMARY CARE MEDICATION MGT NOTE DATE OF NOTE: APR 22, 2022@09:33 ENTRY DATE: APR 22, 2022@09:33:21 AUTHOR: JOEL MALIK EXP COSIGNER: URGENCY: STATUS: COMPLETED Patient is calling for medication refill or jitendra wal: Medication name: 1. SILDENAFIL TAB 50MG SILDENAFIL - negotiated Jun pcp appt What Pharmacy do you use? Pharmacy phone number? Pharmacy Fax number? FUTURE APPOINTMENTS Future Appointments - Jun@08:30 EMIGDIO MICHELE B3 Jan@07:30 EMIGDIO MOTA B3RF /es/ JOEL MALIK AMSA Signed: 04/22/2022 09:40 Receipt Acknowledged By: * AWAITING SIGNATURE * CHRISTOPHER CARCAMO * AWAITING SIGNATURE * [address] V
--- OUTSIDE RECORDS SUMMARY | 2022-07-17 12:34 | XMS_ITS | Encounter Summary ---
:1940 Author Organization Department [facility] Address [address] [place] [address] Support Name Relationship Address Phone BLAS CASTRO Unavailable [address] [facility] [place] [address] BLAS CASTRO Unavailable [address] [facility] [place] [address] THEA CASTRO Unavailable [address] [place] [address] Insurance Providers: All historical and current Section [...] [place] PREF[place] Jun 01, [id number] [phone] CHERIE PERN,A PATIENT (FEDERAL) PROVIDER MACY 2006 70 7 RNOLD ORGANIZAT FAMIL ION (PPO) Y 105 BCBS OF PREFERRED STAND Nov 01, 105 [id number] [phone] HALPER N,A PATIENT MASS FEP PROVIDER MACY 2004 70 6 RNOLD ORGANIZAT FAMIL ION (PPO) Y BCBS OF DENTAL STAND Nov 01, DENTAL [id number] [phone] MATTHEW,A PATIENT MASS FEP INSURANCE MACY 2004 70 6 RNOLD DENTAL [place] OF [place] PREFERRED STAND Nov 01, 104 [id number] [phone] CHERIE PERN,A PATIENT FEDERAL PROVIDER MACY 2020 70 4 RNOLD ORGANIZAT SELF ION (PPO) BC[place] OF [place] PREFERRED STAND Nov 01, 105 [id number] [phone] CHERIE PERN,A PATIENT FEDERAL PROVIDER MACY 2005 70 4 RNOLD ORGANIZAT FAMIL ION (PPO) Y CAREMARK PRESCRIPT FEP Nov 02, [id number] [phone] HALP GURJIT,A PATIENT ([id number]) ION 2011 0 70 7 RNOLD CAREMARK PRESCRIPT CAREM Nov 01, [id number] [phone] HALP GURJIT,A PATIENT FEP BCBS ION ARK 2011 0 70 1 RNOLD FEPRX PLAN [place]-F PRESCRIPT BCBS Nov 01, [id number] [phone] QUIÑONES LPERN,A PATIENT EP BCBS ION FEP 2011 0 70 331 RNOLD PLAN MEDICARE MEDICARE PART Jun 01, PART B [id number] [id number] HALPER N,A PATIENT (WNR) (M) B 2006 XF33 2 RNOLD MEDICARE MEDICARE PART Jun 01, PART A [id number] [phone] HALPER N,A PATIENT (WNR) (M) A 2006 XF33 2 RNOLD MEDICARE MEDICARE PART Jun 01, PART B [id number] [phone] HALPER N,A PATIENT (WNR) (M) B 2006 XF33 2 RNOLD MEDICARE MEDICARE PART Jun 01, PART A [id number] HALPER N,A PATIENT (WNR) (M) A 2006 38A 00 RNOLD MEDICARE MEDICARE PART Jun 01, PART B [id number] HALPER N,A PATIENT (WNR) (M) B 2006 38A 00 RNOLD MEDICARE MEDICARE PART Jun 01, PART A [id number] HALPER N,A PATIENT (WNR) (M) A 2006 XF33 00 RNOLD MEDICARE MEDICARE PART Jun 01, PART B [id number] HALPER N,A PATIENT (WNR) (M) B 2006 [id number] 00 RNOLD MEDICARE MEDICARE PART Jun 01, PART A [id number] [id number] HALPER N,A PATIENT (WNR) (M) A 2006 38A 2 RNOLD MEDICARE MEDICARE PART Jun 01, PART B [id number] [id number] HALPER N,A PATIENT (WNR) (M) B 2006 38A 2 RNOLD MEDICARE MEDICARE PART Jun 01, PART A [id number] [id number] Chetan DAVID PATIENT (AMARILYS) (M) A 2006 XF33 2 RNOLD Selected Encounter This section includes the information on record at [place] for the Encounter. Date/Time Encounter Type Encounter Description Reason Provider Source May 13, 2022 11:46 Outpatient Encounter ADMIN PAT ACTIVTIES AM (XUAN) IHE Encounter Template Text not used by [place] Plan of Treatment: Future Appointments (+ 6 months) and Future Tests (+/- 45 days) The Plan of Treatment section includes future care activities for the patient from all [place] treatmentfacilities. This section includes future appointments and future orders which are active, pending orscheduled.Future Appointments This section includes appointments that were scheduled to occur 6 months from the date of the Encounter, up to a maximum of 20 appointments. The data comes from all [place] treatment facilities. Appointment Date/Time Appointment Type Appointment Facili ty Name Jun 12, 2022 08:30 AM [facility] Jun 12, 2022 11:00 AM AMBULATORY - REHAB MEDICINE [place] [facility] 2022 09:00 AM AMBULATORY - MEDICINE [facility] Aug 24, 2022 11:00 AM AMBULATORY - SURGERY [facility] Sep 04, 2022 03:00 PM [facility] Active, Pending, and Scheduled Orders This section includes a listing of several types of active, pending, and scheduled orders, including clinic medications orders, diagnostic test orders, procedure orders and consult orders; where the start date of the order is 45 days before the date of the Encounter or 45 days after the date of the Encounter. The data comes from all [place] treatment facilities. Test Date/Time Test Type Test Details Facility Name Jun 18, 2022 09:27 AM Consult Order OPHTHALMOLOGY IFC (S) [facility] [place] [facility] Cons Videotape Sales Representative's Choice Social History: Smoking Status (Most current) and Tobacco Use (All prior to encounter date) This section includes the most current, and the historical, smoking and tobacco-related health factors from the [place] facility where the Encounter took place.Current Smoking Status This section includes the most current smoking, or tobacco-related health factor, from the [place] facility where the Encounter took place. Date/Time Current Smoking Status Comment Facility May 28, 2020 02:23 PM VA-TOBACCO QUIT 15 YRS OR MORE [place] [facility] Tobacco Use History This section includes a history of the smoking, or tobacco- related health factors, that were collected on or before the date of the Encounter. The data comes from the [place] facility where the Encounter took place. Date/Time Smoking Status/Tobacco Use Comment [facility] May 28, 2020 02:23 PM VA-TOBACCO QUIT 15 YRS OR [place] MORE [facility] Dec 29, 2018 03:56 PM VA-TOBACCO FORMER USER [place] [facility] Dec 29, 2018 03:56 PM VA-TOBACCO QUIT 5 TO < 15 [place] Y[place] [facility] Sep 04, 2015 08:54 PM QUIT TOBACCO USE > 7 YEARS [place] A[place] [facility] Jul 31, 2005 02:57 PM H[place] SMOKING [place] Pt. quit 25 years ago. [facility] Jul 30, 2004 02:24 PM H[place]ORY [place] SMOKING [place] Pt. quit about 30 years ago. [facility] Jan 16, 2004 09:21 AM QUIT TOBACCO USE > 7 YEARS [place] A[place] 30 years ago [facility] Jun 20, 2003 01:47 PM H[place]ORY [place] SMOKING [place] Pt. quit 25 years ago. [facility] Jun 08, 2002 02:23 PM H[place] OF [place]MOKING [place] [facility] Jun 09, 2001 05:10 PM H[place]ORY OF SMOKING [place] [facility] Encounter Notes: All associated encounter notes This section contains the clinical notes associated to the Encounter. Date/Time Encounter Note(s) Provider Source May 13, 2022 11:46 AM ADMINISTRATIVE NOTE: JOEL MALIK [place] LOCAL TITLE: Has Admin Note [facility] STANDARD TITLE: ADMINISTRATIVE NOTE DATE OF NOTE: MAY 13, 2022@11:46 ENTRY DATE: MAY 13, 2022@11:46:38 AUTHOR: JOEL MALIK EXP COSIGNER: URGENCY: STATUS: COMPLETED Reason for call [facility] 1st call RTC Labs 02/08/2023 - call out [phone] - ginger l attempt call again /ivy/ JOEL MALIK AMSA Signed: 05/13/2022 11:47
--- OUTSIDE RECORDS SUMMARY | 2022-07-17 12:35 | XMS_ITS | Encounter Summary ---
:1940 Author Organization Department [facility] Address [address] [place] [id number] Support Name Relationship Address Phone BLAS GAMEZ Unavailable [phone] [place] [address] THEA GAMEZ Unavailable [address] [place] [address] Insurance Providers: All historical and current Section [...] [place] PREFERR[place]AND Jun 01, 105 [id number] [phone] CHERIE PERN,A PATIENT (FEDERAL) PROVIDER MACY 2006 70 7 RNOLD ORGANIZAT FAMIL ION (PPO) Y 105 BCBS OF PREFERRED STAND Nov 01, 105 [id number] HALPER N,A PATIENT MASS FEP PROVIDER MACY 2004 70 6 RNOLD ORGANIZAT FAMIL ION (PPO) Y BCBS OF DENTAL STAND Nov 01, DENTAL [id number] MTATHEW,A PATIENT MASS FEP INSURANCE MACY 2004 70 6 RNOLD DENTAL [place] PREFERRED STAND Nov 01, 104 [id number] [id number] CHERIE PERN,A PATIENT FEDERAL PROVIDER MACY 2020 70 4 RNOLD ORGANIZAT SELF ION (PPO) [place] PREFERRED STAND Nov 01, 105 [id number] [id number] CHERIE PERN,A PATIENT FEDERAL PROVIDER MACY 2004 70 4 RNOLD ORGANIZAT FAMIL ION (PPO) Y [place]ARK PRESCRIPT FEP Nov 02, [id number] [phone] HALP GURJIT,A PATIENT ([id number]) ION 2011 0 70 7 RNOLD [place]ARK PRESCRIPT CAREM Nov 01, [id number] [phone] HALP GURJIT,A PATIENT FEP BCBS ION ARK 2011 0 70 1 RNOLD FEPRX PLAN [place]-F PRESCRIPT BCBS Nov 01, [id number] [phone] QUIÑONES LPERN,A PATIENT EP BCBS ION FEP 2011 0 [id number] RNOLD PLAN MEDICARE MEDICARE PART Jun 01, PART A [id number] [id number] HALPER N,A PATIENT (WNR) (M) A 2006 38A 00 RNOLD MEDICARE MEDICARE PART Jun 01, PART B [id number] [phone] HALPER N,A PATIENT (WNR) (M) B 2006 38A 00 RNOLD MEDICARE MEDICARE PART Jun 01, PART A [id number] [id number] HALPER N,A PATIENT (WNR) (M) A 2006 38A 2 RNOLD MEDICARE MEDICARE PART Jun 01, PART A [id number] [phone] HALPER N,A PATIENT (WNR) (M) A 2006 [id number] RNOLD MEDICARE MEDICARE PART Jun 01, PART B [id number] [phone] HALPER N,A PATIENT (WNR) (M) B 2006 [id number] RNOLD MEDICARE MEDICARE PART Jun 01, PART B [id number] [phone] HALPER N,A PATIENT (WNR) (M) B 2006 38A 2 RNOLD MEDICARE MEDICARE PART Jun 01, PART A [id number] [id number] HALPER N,A PATIENT (WNR) (M) A 2006 [id number] 2 RNOLD MEDICARE MEDICARE PART Jun 01, PART B [id number] [phone] HALPER N,A PATIENT (WNR) (M) B 2006 XF33 2 RNOLD MEDICARE MEDICARE PART Jun 01, PART A [id number] [phone] HALPER N,A PATIENT (WNR) (M) A 2006 XF33 2 RNOLD MEDICARE MEDICARE PART Jun 01, PART B [id number] [phone] HALPER N,A PATIENT (WNR) (M) B 2006 [id number] 2 RNOLD Selected Encounter This section includes the information on record at CT for the Encounter. Date/Time Encounter Type Encounter Reason Provider Source Description 2022 OFFICE O/P EST PRIMARY ICD-10-CM I48.91 CHRISTOPHER CARCAMO 09:00 AM LOW 20-29 MIN CARE/MEDICINE Unspecified atrial fibrillation with Provider Comments: Unspecified Atrial Fibrillation IHE Encounter Template Text not used by CT Assessments - Encounter Diagnoses This section includes the primary and secondary diagnoses documented for the Encounter. Date/Time Primary/Secondary Diagnosis Name Provider Source Diagnosis Jul 01, 2022 PRIMARY Unspecified atrial HIPES,CHRISTOPHER [place] [facility] 11:52 AM fibrillation CLINIC Jul 01, 2022 SECONDARY Benign prostatic HIPES,CHRISTOPHER Domo [facility] 11:52 AM hyperplasia without CLINIC lower urinry tract symp Jul 01, 2022 SECONDARY intermediate (current) HIPES,CHRISTOPHER Domo [facility] 11:52 AM use of CLINIC anticoagulants Jul 01, 2022 SECONDARY Personal history of HIPES,CHRISTOPHER Domo [facility] 11:52 AM malignant neoplasm CLINIC of bronchus and lung Jul 01, 2022 SECONDARY Personal history of HIPES,[facility] 11:52 AM other venous CLINIC thrombosis and embolism Plan of Treatment: Future Appointments (+ 6 [...] Appointment Type Appointment Facili ty Name Aug 24, 2022 11:00 AM AMBULATORY - SURGERY [facility] Sep 04, 2022 03:00 PM AMBULATORY - SURGERY [place] [facility] Active, Pending, and Scheduled Orders This section includes a listing of several types of active, pending, and scheduled orders, including clinic medications orders, diagnostic test orders, procedure orders and consult orders; where the start date of the order is 45 days before the date of the Encounter or 45 days after the date of the Encounter. The data comes from all CT treatment facilities. Test Date/Time Test Type Test Details Facility Name Jun 18, 2022 09:27 AM Consult Order O[facility]AL[facility]Y [facility] Lab Results: +/- 30 days of [...] Interpretation Reference Range Comment 2022 09:29 AM [facility] PSA (TECHNICAL PRODUCT MANAGER) Specime n Type: SERUM Comment: Testin g Performed on Mena Steward/Stewardess Deck (405) [id number] Ordering Provid er: CHRISTOPHER CARCAMO Report Released Date/Time: 2022 09:27 AM Reporting Lab: [facility] [address] [facility] [address] Performing Lab: [facility] [address] [facility] [address] PSA (TECHNICAL PRODUCT MANAGER) 1.37 0-4.0 2022 09:29 [facility] P4 GLU,BUN,CREAT,LYTES,CA Specimen Type: PLASMA AM Comment: Tests performed on Mena Steward/Stewardess Deck (405) SN:[id number] Ordering Provid er: CHRISTOPHER CARCAMO Report Released Date/Time: 2022 09:27 AM Reporting Lab: [facility] [address] [facility] [address] Performing Lab: [facility] [address] [facility] [address] UREA NITROGEN 26 H 7-25 SODIUM 138 135-145 POTASSIUM 4.6 3.5-5.0 CHLORIDE 103 100-110 CARBON DIOXIDE 29 20-30 ANION GAP 6 4-16 GLUCOSE 95 65-100 CREATININE 1.46 0.5-1.5 CALCIUM 9.4 8.5-10.5 eGFR(CKD-EPI 2020) 48 L >60 2022 09:29 AM [facility] CBC PROFILE Specime n Type: BLOOD No comment enter ed. Ordering Provid er: CHRISTOPHER CARCAMO Report Released Date/Time: 2022 09:27 AM Reporting Lab: [facility] [address] [facility] [address] Performing Lab: [place] [facility] [address] [facility] [address] WBC 4.4 L 4.5-11.0 RBC 4.90 4.23-5.66 [...] GRANULOCYTES 2.8 2.2-7.6 ABSOLUTE NRBC 0.00 0-0 Vital Signs: All taken on the encounter date This section contains inpatient and outpatient Vital Signs collected on the date of the Encounter. Date/Time Temperature Pulse Blood Respiratory SP02 Pain Height Weight Flavio dy Source Pressure Rate Mass Index Jun 23 97.1 F 58 135/71 16 /min 96 % 0 156.6 [place] 2021 08:56 /min mm[Hg] lb [facility] Social History: Smoking Status (Most current) and [...] place. Date/Time Current Smoking Status [facility] Facility 2022 09:[address]-TOBACCO FORMER USER [facility] Tobacco Use History This section includes a history of the smoking, or tobacco- related health factors, that were collected on or before the date of the Encounter. The data comes from the CT facility where the Encounter took place. Date/Time Smoking Status/Tobacco Use Comment Cedric denny 2022 09:00 AM [facility]-TOBACCO QUIT 15 YRS OR MORE [facility] Encounter Notes: All associated encounter notes This section contains the clinical notes associated to the Encounter. Date/Time Encounter Note(s) Provider Source Jul 02, 2022 08:24 AM PRIMARY CARE LETTERS: CHRISTOPHER CARCAMO [facility] LOCAL TITLE: [place] PATIENT LAB RESULTS LETTER STANDARD TITLE: PRIMARY CARE LETTERS DATE OF NOTE: JUL 02, 2022@08:24 ENTRY DATE: JUL 02, 2022@08:24:46 AUTHOR: CHRISTOPHER CARCAMO EXP COSIGNER: URGENCY: STATUS: COMPLETED DEPARTMENT OF [facility] [address] [address] JUL 02, 2022 MR. KAYODE GAMEZ [address] [place] [id number] Dear Mr. Gamez: We have received the results of your recent test (s): 2022 09:29 PLASMA!! GLUCOSE 95 mg/dL 65 - 100 !! UREA NITROGEN 26 H mg/dL 7 - 25 !! CREATININE 1.46 mg/dl 0.5 - 1.5 !! eGFR(CKD-EPI 2020 48 L mL/min Ref: >=6 0 !! SODIUM 138 mmol/L 135 - 145 !! POTASSIUM 4.6 mmol/L 3.5 - 5.0 !! CHLORIDE 103 mmol/L 100 - 110 !! CARBON DIOXIDE 29 mmol/L 20 - 30 !! ANION GAP 6 mmol/L 4 - 16 !! CALCIUM 9.4 mg/dL 8.5 - 10.5 2022 09:29 SERUM !! PSA (TECHNICAL PRODUCT MANAGER) 1.37 n g/mL 0 - 4.0 2022 09:29 BLOOD WBC 4.4 L 10*3/uL 4.5 - 1 1.0 RBC 4.90 10*6/uL 4.23 - 5.66 HGB 14.6 g/dl 12.8 - 17 HEMATOCRIT 46.4 % 39.2 - 50.4 MCV 94.7 fl 82 - 99 MCH 29.8 pg 26.2 - 32.6 MCHC 31.5 g/dl 30.8 - 35.1 RDW 13.2 % 12.0 - 16.0 PLT 154 10*3/uL 140 - 360 MPV 10.7 fl 9.2 - 12.4 NEUT % 63.4 % 43.7 - 75.8 LYMPH % 13.6 L % 14.0 - 42.3 MONO % 12.2 % 5.1 - 13.7 EOS % 9.7 H % 0.4 - 6.8 BASO % 0.9 % 0.1 - 2.0 IG % 0.2 % 0.0 - 0.7 N.RBC 0.0 /100 WBC 0.0 - 0.0 NEUT# 2.8 10*3/uL 2.2 - 7.6 Lymph# 0.6 L 10*3/uL 1.0 - 3.2 ABSOLUTE MONOCYTE 0.5 10*3/uL 0.3 - 1.1 ABSOLUTE EOS. 0.4 10*3/uL 0.03 - 0.44 ABSOLUTE BASOPHIL 0.0 L 10*3/uL 0.01 - 0. 13 ABSOLUTE IG 0.0 10*3/uL 0 - 0.06 ABSOLUTE NRBC 0.00 10*3/uL 0 - 0 * we faxed these to your nre doc at [facility] the eGFR that is low has been consistently low for a while. It is a kidney function and sometimes it will drop with age. Th is is stable over a couple of years. Limit your OTC NSAIDs , like ibuprofen, naproxen and Im sure your PCP will discuss with you The WBC is only 0.1 low so that is likle y not significant. The EOS--shows that seasonal allergies/allergies in general and shows the body is fighting..the bone marrow will make what it nee ds, so when you look at all those with percentages %, if more EOS is needed so mething else has to go a little lower (lymph in this case)--changes on what we need. I MIGHT have heard you have covid...get better, Sir. Please call with any questions Sincerely, /ivy/ CHRISTOPHER CARCAMO APRN 2022 09:07 AM PRIMARY CARE NOTE: CHRISTOPHER CARCAMO [facility] LOCAL TITLE: Primary Care Clinic Note STANDARD TITLE: PRIMARY CARE NOTE DATE OF NOTE: 2022@09:07 ENTRY DATE: 2022@09:08:02 AUTHOR: CHRISTOPHER CARCAMO EXP COSIGNER: URGENCY: STATUS: COMPLETED Primary Care Clinic Note Has ADDENDA is identified by first name, last name a nd last 4 digits of his SS# and [facility] The patient has the following concerns: 1 states that he is well with the exception of h is eyes and ears.has branch retinal breana occulsion--sees CT eye care professional.. on the list 2.he talks about his treatme nt of lung cancer. He initially failed chemotherapy and was started on immunotherapy. He reports sima t he took optivo for 70 tx-- discontinued because of severe diarrhea. He was placed on prednisone after that--cancer free without any treatments and h e still has CAT scans about every 6 months. It was discu ssed between the and his oncologist that he would no longer have any PET scans 3. He has a new local primary care provi kandace Dr Dunham--HTN 5mg Amlodipine and 5mg Lisinopril---full doses kept him feeling l ow energy 4. Reports that he has had an enlarged prostate for a while. Because of his history of lung cancer, he has had a PSA done ye kristopher. He reports that the nocturia stays the same, not fully emptying his bladder remains the same and is due for his PSA Review of Systems: GEN: Denies fever, chills, excessive fatigue, sl eep disturbance, Reports nl appetite. ENDO: Denies significant weight changes CV: Denies chest pain PULM: Denies SOB, difficulty breathing, cough GI: Denies n/v/d, constipation, blood in stool MSK: Denies joint pain, myalgias NEURO: Denies headaches, numbness tingling weakn ess, change in gait/balance EXT: Denies edema, pain SKIN: Denies new or changed lesions listed allergies;SULFAMETHOXAZOLE, PENICILLIN, I NFLUENZA Active problems - Computerized Problem List is t he source for the followin. History of non-small cell malignant neoplasm of lung 2. History of venous thrombosis 3. Coagulation disorder 4. 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 Superficial phlebitis (SNOMED CT 2984326) 6. Acute sinusitis 7. Family History of Malignant Neoplasm of [place] [address] 8. Subjective tinnitus 9. Health Maintenance 10. Enlarged prostate (SNOMED CT 758060476) 11. Sensorineural Hearing Loss, Bilateral 12. Chronic atrial fibrillation (SNOMED [place] 8[address] 9564) 13. Long-term current use of anticoagulant (SNOM ED CT 895506648) Active Outpatient Medications (excluding Supplie s): Active Outpatient Medications Status 1) APIXABAN 5MG TAB TAKE ONE TABLET BY MOUTH KATHY RY ACTIVE TWELVE HOURS TO HELP PREVENT BLOOD CLOTS (ANTICOAGULATION) 2) SILDENAFIL CITRATE 50MG TAB TAKE ONE TABLET B Y MOUTH ACTIVE NEEDED FOR ERECTILE DYSFUNCTION , MAX USE ON CE IN 24 HOUR PERIOD Physical Exam: B/P PULSE WEIGHT BMI SpO2 PAIN 135/71 58 156.6 23.1 96 0 Skin: pink, warm, dry HEENT: Neck is supple no lymphadenopathy Chest: bilateral lungs are clear. Resps are easy and even Heart: Apical pulse is irregular irregular Abd. Soft and flat with active bowel sounds Extremities. Bilateral varicose veins in lower e xtremities.No discernible swelling. Pedal and post tibial pulses are prese nt. Feet are cold to touch Assessment/Plan: Long-term anticoagulant. 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 He was on Love nox for years and has recently been switched over to apixaban is doing well Stage IV lung cancer. Apparently in remission fo r 4 years because of immunotherapy A. fib. Treated with apixaba n as well. Has an outside primary care provider who recently started him on antihypertensives. We wi ll see if we can get his last progress note from his outside primary care for record completeness Benign prostatic hypertrophy. No change in symptoms. Has been monitoring a PSA so we will monitor that today. FOLLOW UP: One year Depression Screening: Perform PHQ-2 A PHQ-2 screen was performed. The score was 0 w hich is a negative screen for depression. Over the past two weeks, how often have you bee n bothered by the following problems? 1. Little interest or pleasure in doing things Not at all 2. Feeling down, depressed, or hopeless Not at all Suicide Screen: C-SSRS Screening [place]-Suicide Severity Rating Scale (C-SSRS Screener) 1. Over the past month, have you wished you wer e or wished you could go to sleep and not wake up? No 2. Over the past month, have you had any actual thoughts of killing yourself? No 3. Over the past month, have you been thinking about how you might do this? Response not required due to responses to other questions. 4. Over the past month, have you had these thou ghts and had some intention of acting on them? Response not required due to responses to other questions. 5. Over the past month, have you started to wor k out or worked out the details of how to kill yourself? Response not required due to responses to other questions. 6. If yes, at any time in the past month did yo u intend to carry out this plan? Response not required due to responses to other questions. 7. In your lifetime, have you ever done anythin g, started to do anything, or prepared to do anything to end you r life (for example, collected pills, obtained a gun, gave away valu ty, went to the roof but didn't jump)? No 8. If YES, was this within the past 3 months? Response not required due to responses to other questions. Alcohol Use Screen (AUDIT-C): Alcohol Screen: SCREEN FOR ALCOHOL (AUDIT-C) An alcohol screening test (AUDIT-C) was negativ e (score=0). 1. How often did you have a drink containing al cohol in the past year? Never 2. How many drinks containing alcohol did you h ave on a typical day when you were drinking in the past year? Response not required due to responses to other questions. 3. How often did you have six or more drinks on one occasion in the past year? Response not required due to responses to other questions. /ivy/ CHRISTOPHER CARCAMO APRN Signed: 2022 14:45 2022 ADDENDUM STATUS: COMPLETED Please obtain his last progress note from his [facility] care provider at [facility] /ivy/ CHRISTOPHER CARCAMO APRN Signed: 2022 14:45 Receipt Acknowledged By: 06/24/2022 12:38 /ivy/ BHAVANI MISHRA 2022 ADDENDUM STATUS: COMPLETED Faxed request to [facility] to obtain recent visit note s /ivy/ BHAVANI MISHRA Signed: 2022 15:07 06/24/2022 ADDENDUM STATUS: COMPLETED notes received, placed for review /ivy/ JOEL EDUARDO Signed: 06/24/2022 11:38 Receipt Acknowledged By: 06/24/2022 13:59 /ivy/ MERNA MORRISON BUCKLE ATTACHER 06/24/2022 ADDENDUM STATUS: COMPLETED Records sent to Sc[facility] Note date 02/10/22 /ivy/ MERNA MORRISON BUCKLE ATTACHER Signed: 06/24/2022 14:00 07/02/2022 ADDENDUM STATUS: COMPLETED please fax his labs to his PC Dr Dunham /ivy/ CHRISTOPHER CARCAMO APRN Signed: 07/02/2022 08:24 Receipt Acknowledged By: 07/02/2022 10:01 /jesenia EDUARDO 07/02/2022 ADDENDUM STATUS: COMPLETED printed labs and last office notes - [facility]ed to [facility] /ivy/ JOEL EDUARDO Signed: 07/02/2022 10:00 2022 08:58 AM PRIMARY CARE ANNUAL EVALUATION NOTE: MERNA TRUONG [facility] LOCAL TITLE: Preventive Health Annual Review STANDARD TITLE: PRIMARY CARE ANNUAL EVALUATION N OTE DATE OF NOTE: 2022@08:58 ENTRY DATE: 2022@08:58:28 AUTHOR: MERNA MORRISON EXP COSIGNER: URGENCY: STATUS: COMPLETED Pt here for f2f with PCP Advance Directive Screen: Patient does not have a completed advance direc tive on file at any facility, [facility] or outside. S/he is not interested in completing one at this time. The patient received education about Advance Di rectives and written notification of his/her rights. Tobacco Use Screening: The patient is a former tobacco user. The patient quit fifteen or more years ago. Influenza Immunization: The patient has received the seasonal influenza vaccine for the current season at another location. Date: July 25, 2021 Location: [facility] Vaccine:Influenza, seasonal quadrivalent, adjuva nted Date: 07/25/2021 Practice/Source: [facility] Route: Intramuscular Can Sterilizer/Cred.: Mahsa Gustafson Site: Right Arm MFR: Seqirus Exp. Date: 03/24/2022 Lot: [id number] Herpes Zoster (Shingles) Vaccine: The patient declines to receive the herpes zost er vaccine. Comment: melquiades /ivy/ MERNA MORRISON BUCKLE ATTACHER Signed: 2022 09:02
--- OUTSIDE RECORDS SUMMARY | 2022-07-17 12:35 | XMS_ITS | Encounter Summary ---
:1940 Author Organization Department [facility] Address [address] [place] [id number] Support Name Relationship Address Phone BLAS CASTRO Unavailable [phone] [facility] [place] [address] BLAS CASTRO Unavailable [phone] [facility] [place] [address] THEA CASTRO Unavailable [address] [place] [address] Insurance Providers: All historical and current Section [...] [place] PREF[place] Jun 01, [id number] [phone] CHERIE PERN,A PATIENT (FEDERAL) PROVIDER MACY 2006 70 7 RNOLD ORGANIZAT FAMIL ION (PPO) Y 105 BCBS OF PREFERRED STAND Nov 01, [id number] [phone] HALPER N,A PATIENT MASS FEP PROVIDER MACY 2004 70 6 RNOLD ORGANIZAT FAMIL ION (PPO) Y BCBS OF DENTAL STAND Nov 01, DENTAL [id number] [phone] MATTHEW,A PATIENT MASS FEP INSURANCE MACY 2004 70 6 RNOLD DENTAL [place] PREFERRED STAND Nov 01, 104 [id number] [phone] CHERIE PERN,A PATIENT FEDERAL PROVIDER MACY 2020 70 4 RNOLD ORGANIZAT SELF ION (PPO) [place] PREFERRED [place] Nov 01, 105 [id number] [phone] CHERIE PERN,A PATIENT FEDERAL PROVIDER MACY 2005 70 4 RNOLD ORGANIZAT FAMIL ION (PPO) Y CAREMARK PRESCRIPT FEP Nov 02, [id number] [phone] HALP GURJIT,A PATIENT ([id number]) ION 2011 0 70 7 RNOLD [place] PRESCRIPT CAREM Nov 01, [id number] [phone] HALP GURJIT,A PATIENT FEP BCBS ION ARK 2011 0 70 1 RNOLD FEPRX PLAN [place]-F PRESCRIPT BCBS Nov 01, [id number] [phone] QUIÑONES LPERN,A PATIENT EP BCBS ION FEP 2011 0 [id number] RNOLD PLAN MEDICARE MEDICARE PART Jun 01, PART B [id number] HALPER N,A PATIENT (WNR) (M) B 2006 [id number] 2 RNOLD MEDICARE MEDICARE PART Jun 01, PART B [id number] [id number] HALPER N,A PATIENT (WNR) (M) B 2006 XF33 2 OLD MEDICARE MEDICARE PART Jun 01, PART A [id number] [phone] HALPER N,A PATIENT (WNR) (M) A 2006 XF33 2 RNOLD MEDICARE MEDICARE PART Jun 01, PART A [id number] HALPER N,A PATIENT (WNR) (M) A 2006 [id number] 00 RNOLD MEDICARE MEDICARE PART Jun 01, PART B [id number] HALPER N,A PATIENT (WNR) (M) B 2006 [id number] 00 RNOLD MEDICARE MEDICARE PART Jun 01, PART A [id number] HALPER N,A PATIENT (WNR) (M) A 2006 [id number] RNOLD MEDICARE MEDICARE PART Jun 01, PART B [id number] HALPER N,A PATIENT (WNR) (M) B 2006 [id number] RNOLD MEDICARE MEDICARE PART Jun 01, PART A [id number] [phone] HALPER N,A PATIENT (WNR) (M) A 2006 38A 2 RNOLD MEDICARE MEDICARE PART Jun 01, PART B [id number] HALPER N,A PATIENT (WNR) (M) B 2006 38A 2 RNOLD MEDICARE MEDICARE PART Jun 01, PART A [id number] Chetan DAVID PATIENT (WNR) (M) A 2006 [id number] 2 RNOLD Selected Encounter This section includes the information on record at ME for the Encounter. Date/Time Encounter Type Encounter Reason Provider Source Description Jun 12, 2022 OFFICE O/P EST OPHTHALMOLOGY ICD-10-CM CAITLIN MICHELE 08:30 AM MOD 30-39 MIN H34.8320 Trib [place] rtnl vein occlusion, left eye, with macular edema with Provider Comments: Tributary (branch) retinal vein occlusion, left eye, with macular edema IHE Encounter Template Text not used by [facility] Assessments - Encounter Diagnoses This section includes the primary and secondary diagnoses documented for the Encounter. 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 This section includes future appointments and future orders which are active, pending orscheduled.Future Appointments This section includes appointments that were scheduled to occur 6 months from the date of the Encounter, up to a maximum of 20 appointments. The data comes from all ME treatment facilities. Appointment Date/Time Appointment Type Appointment Facili ty Name 2022 09:00 AM AMBULATORY - MEDICINE [facility] Aug 24, 2022 11:00 AM AMBULATORY - SURGERY [facility] Sep 04, 2022 03:00 PM AMBULATORY - SURG[place] [facility] Active, Pending, and Scheduled [...] the Encounter. The data comes from all ME treatment facilities. Test Date/Time Test Type Test Details Facility Name Jun 18, 2022 09:27 AM Consult Order OPHTHALMOLOGY IF ([facility] Cons Audio Narrator's Choice Lab Results: +/- 30 days of the encounter This section includes the Chemistry and Hematology Lab Results on record with ME for the patient. Radiology Reports and Pathology Reports are provided separately, in subsequent sections.Lab Results This section contains the Chemistry/Hematology Results that were resulted 30 days before or 30 daysafter the date of the Encounter. Date/Time Source Result Type Result - Unit Interpretation Reference Range Comment 2022 09:29 AM [facility] PSA (POWERHOUSE OPERATOR) Specime n Type: SERUM Comment: Testin g Performed on Mena Battery Starter (405) [id number] Ordering Provid er: CHRISTOPHER CARCAMO Report Released Date/Time: 2022 09:27 AM Reporting Lab: [facility] [address] [facility] [address] Performing Lab: [facility] [address] [facility] [address] PSA (POWERHOUSE OPERATOR) 1.37 0-4.0 2022 09:29 [facility] P4 GLU,BUN,CREAT,LYTES,CA Specimen Type: PLASMA AM Comment: Tests performed on Mena Battery Starter (405) [id number] Ordering Provid er: CHRISTOPHER CARCAMO Report Released Date/Time: 2022 09:27 AM Reporting Lab: [facility] [address] [facility] [address] Performing Lab: [facility] [address] [facility] [address] UREA NITROGEN 26 H 7-25 SODIUM 138 135-145 POTASSIUM 4.6 3.5-5.0 CHLORIDE 103 100-110 CARBON DIOXIDE 29 20-30 ANION GAP 6 4-16 GLUCOSE 95 65-100 CREATININE 1.46 0.5-1.5 CALCIUM 9.4 8.5-10.5 eGFR(CKD-EPI 2020) 48 L >60 2022 09:29 AM [facility] CBC PROFILE Specime n Type: BLOOD No comment enter ed. Ordering Provid er: CHRISTOPHER CARCAMO Report Released Date/Time: 2022 09:27 AM Reporting Lab: [facility] [address] [facility] [address] Performing Lab: [facility] [address] [facility] [address] WBC 4.4 L 4.5-11.0 RBC 4.90 4.23-5.66 [...] GRANULOCYTES 2.8 2.2-7.6 ABSOLUTE NRBC 0.00 0-0 Social History: Smoking Status (Most current) and Tobacco Use (All prior to encounter date) This section includes the most current, and the historical, smoking and tobacco-related health factors from the ME facility where the Encounter took place.Current Smoking Status This section includes the most current smoking, or tobacco-related health factor, from the ME facility where the Encounter took place. Date/Time Current Smoking Status Comment Facility May 28, 2020 02:23 PM VA-TOBACCO QUIT 15 YRS OR MORE [facility] Tobacco Use History This section includes a history of the smoking, or tobacco- related health factors, that were collected on or before the date of the Encounter. The data comes from the ME facility where the Encounter took place. Date/Time Smoking Status/Tobacco Use Comment Facil ity May 28, 2020 02:23 PM VA-TOBACCO QUIT 15 YRS OR [place] [facility] Dec 29, 2018 03:56 PM VA-TOBACCO FORMER USER [place] [facility] Dec 29, 2018 03:56 PM VA-TOBACCO QUIT 5 TO < 15 [place] YRS [facility] Sep 04, 2015 08:54 PM QUIT TOBACCO USE > 7 YEARS [place] A[place] [facility] Jul 31, 2005 02:57 PM HISTORY OF SMOKING [place]. quit 25 years ago. [facility] Jul 30, 2004 02:24 PM H[place] OF SMOKING [place]. quit about 30 years ago. [facility] Jan 16, 2004 09:21 AM QUIT TOBACCO USE > 7 YEARS [place] A[place] 30 years ago [facility] Jun 20, 2003 01:47 PM H[place]ORY OF SMOKING [place] Pt. quit 25 years ago. [facility] Jun 08, 2002 02:23 PM H[place] OF SMOKING [place] [facility] Jun 09, 2001 05:10 PM H[place]ORY OF SMOKING [place] [facility] Encounter Notes: All associated encounter notes This section contains the clinical notes associated to the Encounter. Date/Time Encounter Note(s) Provider Source Jun 12, 2022 07:18 EYE E & M NOTE: CAITLIN MICHELE [facility] [place] LOCAL TITLE: Eye Exam Template [facility] STANDARD TITLE: EYE E & M NOTE DATE OF NOTE: JUN 12, 2022@07:18 ENTRY DATE: JUN 12, 2022@07:19:35 AUTHOR: CAITLIN MICHELE EXP COSIGNER: URGENCY: STATUS: [...] USE ON CE IN 24 HOUR PERIOD Active Non-VA Medications Status 1) Non-VA CALCIUM [...] ISH TH THREE ACTIVE TIMES A DAY 9 Total Medications Allergies/Adverse Reactions: SULFAMETHOXAZOLE, PENICILLIN, INFLUENZA [...] upper lobe of pebbles g (SNOMED CT 24884605) 5. Superficial phlebitis (SNOMED CT 3722303) 6. Acute sinusitis 7. Family History of Malignant Neoplasm of [place] st 8. Subjective tinnitus 9. Health Maintenance 10. Enlarged prostate (SNOMED CT 452158827) 11. Sensorineural Hearing Loss, Bilateral 12. Chronic atrial fibrillation (SNOMED CT 60851 9004) 13. Long-term current use of anticoagulant (SNOM ED CT 808359874) 81 year old WHITE MALE, patient CHIEF COMPLAINT AND HISTORY OF PRESENT ILLNESS ( HPI): Pt presents for f/u regarding Branch ret inal vein occlusion with macular edema OS and possible intravitreal injection OS Neurological and Psychiatric Status: Orientation : Oriented to person, time, place Mood and Affect: normal, no agitation, no anxiety, no depressive behaviors in clinic OCULAR HISTORY: 1. 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 2. H/o transient visual obscuration OS on 2 --Pt has h/o hypertension, hyperlipidemia, and atrial fibrillation. 3. Very longstanding, non-tractional, non-macula r Epiretinal Membrane OU 4. Mild cataracts OU 5. Retinoschisis OS inferior nasal 6. Refractive error with presbyopia OU VISUAL ACUITY (with correction) OD: 20/20 OS: 20/30-1 PH NI OCULAR MOTILITY (EOM): Full without dipl opia or pain OU, pursuits and saccades intact OU CONFRONTATION VIS KERN: full to finger countin g OD & OS PUPILS: PERRLA, NO APD PRESENT OU ORBITS/ADNEXA: Normal OU ANTERIOR SEGMENT AND SLIT LAMP EXAM: ANTERIOR SEGMENT AND SLIT LAMP EXAM: Lids/Lashes: OD: trMGD, papilloma on UL and LL OS: trMGD Scleral and Conjunctiva: OD: white and quiet, ping n/t OS: white and quiet, ping n/t Cornea: OD: clear without staining OS: clear without staining Anterior Chamber: clear and free of cells or fl are OU [place] Angle estimation: OD:4x4 OS:4x4 Iris: normal/intact OU/ no neovascularization p resent ou Tonometry:iCare OD 11 OS 9 Time: 0835 DILATION OU: PATIENT EDUCATED ON SIDE EFFECTS OF DILATION PRIOR TO DROP INSTILLATION. SIDE EFFECT DISCUSSED INCLUDE LIGH T SENSITIVITY AND BLURRED VISION AT NEAR. 1 gtt 1% Tropicamide 1 gtt 2.5% Phenylephrine Time:9:52am INTERNAL EYE EXAMINATION BY SLIT LAMP, FUNDUSCOP Y AND BINOCULAR INDIRECT OPHTHALMOSCOPE: Lens: OD: 2+NS OS: 2-3 Cortical, 2+NS, 2+ PSC Vitreous: OD: syneresis present,PVD OS: syneresis [...] Retina: Flat and intact 360 degrees OU PROCEDURE NOTE: LEFT EYE EYLEA INJECTION, LOT [id number] , EXPIR ES 12/2022 ABX: TOPICAL 5% betadine ANESTHESIA: TOPICAL, 4% [...] Lucentis 12/02/12 ([place]), s/p Lucentis 01/2013 at [facility]/Dr. Bashir. -2013 OCT showed full resolution of ME: Was stab le until 01/2019; -DFE 01/2019 OS showed scattered blot hemes and p eripapillary CWS, symptoms re-appeared - apparent BRVO/re-clotting of shunt vessels. Second series of anti VEGF injns: With ME thick- worsening- decision made to begin treatment 01/2019. -Eylea Injection OS [facility] #1 02/24/2019 Post Hiatus for 5 years #2 07/07/2019 -Eylea Injection OS [place] (Dr. Abdulkadir carvajal MD) #3 10/10/2019 #4 ~11/21/2019 -Eylea Injection OS [facility] #5 03/27/2020 #6 06/24/2020 *NO INJN 08/2020 #7 10/18/2020 #8 12/09/2020 *NO INJN 01/2021 #9 03/03/2021 #10 06/13/2021 #11 08/25/2021 #12 11/28/2021 #13 02/09/2022 LUCENTIS 20/40+ #14 04/16/2022 EYLEA 20/30-2 #15 06/12/2022 ELLEA 20/30- On 05/20/2020, at 7 weeks after 03/2020 [...] go longer than 8 weeks between injections. - -Dry at 8 weeks post Dec injn, tried again to ex tend- at 11 weeks, on 03/03/2021 -there was extensive inferior ME. Return to clinic, 8-10 weeks, maximum 10 weeks. 06/13/2021 -MAC OCT shows significantly increased ME OS aft er 03/03/21 injection (~14 week interval) 08/25/2021 -MAC OCT only mild ME inferiorly, improved since last visit. Good interval 10-11weeks. Leaving for [place] in early Sep, will inject today. - Pt requesting a new pair of DVO specs before l eaving for [place], will place order today. 11/28/2021 -MAC OCT shows significant increase in edema, ~3 month interval from previous injection. Will continue to follow at 10-11 weeks. 02/09/2022 -Will use Lucentis today- Eylea not available- h e has used it in past. Pt reports vision is stable but notices mo re blur in left eye. Saw optometry today and got updated MRx. OCT MAC shows no new edema f rom last scan, will continue q10-11 week intervals. 04/16/2022 -Vision somewhat reduced compared to last visit, pt thinks eyelea works better than lucentis. Overall, VA is worse, symptoms are worse and OCT mac appears worse with lucentis on a shorter follow up interval. Eylea available today, will return to using that . OCT mac shows mild thickening of mac compared to last scan. Will inject today and continue [id number] intervals. 06/12/2022 - pt states vision is a little worse OS. Feels l monalisa he is having a hard time seeing with bright lights on. Can see better in the dark. Is interested in having cataract surgery OS t o potentally improve vision. OS: 2+ CS, 1-2+ NS, 2+ PSC . Will put in consult of Dr. Ribeiro for cataract surgery OS OCT MAC: stable OD, Improved thickening today OD, continue eylea injections OS 2. Has Stage 4 lung CA - immunotherapy treatment s extremely successful, but had side effects- Colitis. Did not go to [place] in [phone] *Patient's secondary cardiac & stroke complications* Cut [place] trip short [phone] Abdulkadir Valenzuela in [place] RTC ORDER: -AW: 10-11 weeks for DFE, OCT Mac, likely Injn O S *needs appt scheduled* - will schedule cataract consult for OS. Total time spent during this encounter, sarah lopez [id number] and non-face time, was 35 min /ivy/ CAITLIN MICHELE MD Signed: 06/12/2022 09:48
--- OUTSIDE RECORDS SUMMARY | 2022-07-17 12:35 | XMS_ITS | Encounter Summary ---
:1940 Author Organization Department [facility] rs Address [address] [place] [address] Support Name Relationship Address Phone BLAS CASTRO Unavailable [phone] [place] [address] BLAS CASTRO Unavailable [phone] [facility] [place] [place] [address] THEA CASTRO Unavailable [address] [place] [address] Insurance Providers: All historical and current Section [...] [place]BS OF [place] PREFERRED STAND Jun 01, [id number] [phone] CHERIE PERN,A PATIENT (FEDERAL) PROVIDER MACY 2006 70 7 RNOLD ORGANIZAT FAMIL ION (PPO) Y 105 BCBS OF PREFERRED STAND Nov 01, [id number] [phone] HALPER N,A PATIENT MASS FEP PROVIDER MACY 2004 70 6 RNOLD ORGANIZAT FAMIL ION (PPO) Y BCBS OF DENTAL STAND Nov 01, DENTAL [id number] [phone] MATTHEW,A PATIENT MASS FEP INSURANCE MACY 2004 70 6 RNOLD DENTAL [place] OF [place] PREFERRED STAND Nov 01, 104 [id number] [phone] CHERIE PERN,A PATIENT FEDERAL PROVIDER MACY 2020 70 4 RNOLD ORGANIZAT SELF ION (PPO) [place] PREFERRED STAND Nov 01, 105 [id number] [phone] CHERIE PERN,A PATIENT FEDERAL PROVIDER MACY 2005 70 4 RNOLD ORGANIZAT FAMIL ION (PPO) Y CAREMARK PRESCRIPT FEP Nov 02, [id number] [phone] HALP GURJIT,A PATIENT ([id number]) ION 2011 0 70 7 RNOLD CAREMARK PRESCRIPT CAREM Nov 01, [id number] [phone] HALP GURJIT,A PATIENT FEP BCBS ION ARK 2011 0 70 1 RNOLD FEPRX PLAN CAREMARK-F PRESCRIPT BCBS Nov 01, [id number] [phone] QUIÑONES LPERN,A PATIENT EP BCBS ION FEP 2011 0 [id number] 331 RNOLD PLAN MEDICARE MEDICARE PART Jun 01, PART B [id number] [id number] HALPER N,A PATIENT (WNR) (M) B 2006 [id number] 2 RNOLD MEDICARE MEDICARE PART Jun 01, PART A [id number] HALPER N,A PATIENT (WNR) (M) A 2006 XF33 2 OLD MEDICARE MEDICARE PART Jun 01, PART B [id number] [id number] HALPER N,A PATIENT (WNR) (M) B 2006 XF33 2 RNOLD MEDICARE MEDICARE PART Jun 01, PART A [id number] HALPER N,A PATIENT (WNR) (M) A 2006 38A 00 RNOLD MEDICARE MEDICARE PART Jun 01, PART B [id number] HALPER N,A PATIENT (WNR) (M) B 2006 38A 00 RNOLD MEDICARE MEDICARE PART Jun 01, PART A [id number] HALPER N,A PATIENT (WNR) (M) A 2006 [id number] 00 RNOLD MEDICARE MEDICARE PART Jun 01, PART B [id number] HALPER N,A PATIENT (WNR) (M) B 2006 [id number] 00 RNOLD MEDICARE MEDICARE PART Jun 01, PART A [id number] HALPER N,A PATIENT (WNR) (M) A 2006 38A 2 RNOLD MEDICARE MEDICARE PART Jun 01, PART B [id number] HALPER N,A PATIENT (WNR) (M) B 2006 38A 2 RNOLD MEDICARE MEDICARE PART Jun 01, PART A [id number] Chetan DAVID PATIENT (WNR) (M) Chetan 2006 [id number] 2 RNOLD Selected Encounter This section includes the information on record at [place] for the Encounter. Date/Time Encounter Type Encounter Reason Provider Source Description Jun 12, 2022 HEARING AID AUDIOLOGY ICD-10-CM H90.3 ZAINAB CABRERA 11:00 AM REPAIR/MODIFYIN Sensorineural H A G hearing loss, bilateral with Provider Comments: Sensorineural Hearing Loss, Bilateral IHE Encounter Template Text not used by [place] Assessments - Encounter Diagnoses This section includes the primary and secondary diagnoses documented for the Encounter. Date/Time Primary/Secondary Diagnosis Name Provider Source Diagnosis Jun 12, 2022 PRIMARY Sensorineural TOBI ROBERTO 02:11 PM hearing loss, [place] [facility] bilateral Plan of Treatment: Future Appointments (+ [...] Name 2022 09:00 AM AMBULATORY - [facility]INE [facility] Aug 24, 2022 11:00 AM AMBULATORY - SURGERY [facility] Sep 04, 2022 03:00 PM [facility] Active, Pending, and Scheduled Orders This section includes a listing of several types of active, pending, and scheduled orders, including clinic medications orders, diagnostic test orders, procedure orders and consult orders; where the start date of the order is 45 days before the date of the Encounter or 45 days after the date of the Encounter. The data comes from all [place] treatment facilities. Test Date/Time Test Type Test Details Facility Name Jun 18, 2022 09:27 AM Consult Order OPHTHALMOLOGY I[facility] ([facility] [place] [facility] Lab Results: +/- 30 days of the encounter This section includes the Chemistry and Hematology Lab Results on record with [place] for the patient. Radiology Reports and Pathology Reports are provided separately, in subsequent sections.Lab Results This section contains the Chemistry/Hematology Results that were resulted 30 days before or 30 daysafter the date of the Encounter. Date/Time Source Result Type Result - Unit Interpretation Reference Range Comment 2022 09:29 AM [facility] PSA (MBA INTERN) Specime n Type: SERUM Comment: Testin g Performed on Mena Associate Counsel (405) [id number] Ordering Provid er: CHRISTOPHER CARCAMO Report Released Date/Time: 2022 09:27 AM Reporting Lab: [facility] [address] [facility] [address] Performing Lab: [facility] [address] [facility] [address] PSA (MBA INTERN) 1.37 0-4.0 2022 09:29 [facility] P4 GLU,BUN,CREAT,LYTES,CA Specimen Type: PLASMA AM Comment: Tests performed on Mena Associate Counsel (405) SN:[id number] Ordering Provid er: CHRISTOPHER CARCAMO Report Released Date/Time: 2022 09:27 AM Reporting Lab: [facility] [address] [facility] [address] Performing Lab: [facility] [address] [facility] [address] UREA NITROGEN 26 H 7-25 SODIUM 138 135-145 POTASSIUM 4.6 3.5-5.0 CHLORIDE 103 100-110 CARBON DIOXIDE 29 20-30 ANION GAP 6 4-16 GLUCOSE 95 65-100 CREATININE 1.46 0.5-1.5 CALCIUM 9.4 8.5-10.5 eGFR(CKD-EPI 2020) 48 L >60 2022 09:29 AM [facility] CBC PROFILE Specime n Type: BLOOD No comment enter ed. Ordering Provid er: CHRISTOPHER CARCAMO Report Released Date/Time: 2022 09:27 AM Reporting Lab: [facility] [address] [facility] [address] Performing Lab: [facility] [address] [facility] [address] WBC 4.4 L 4.5-11.0 RBC 4.90 4.23-5.66 [...] 15 YRS OR MORE [place] [facility] Tobacco Use History This section includes a history of the smoking, or tobacco- related health factors, that were collected on or before the date of the Encounter. The data comes from the [place] facility where the Encounter took place. Date/Time Smoking Status/Tobacco Use Comment [facility] May 28, 2020 02:23 PM VA-TOBACCO QUIT 15 YRS OR [place] MORE [facility] Dec 29, 2018 03:56 PM VA-TOBACCO FORMER USER [place] [facility] Dec 29, 2018 03:56 PM VA-TOBACCO QUIT 5 TO < 15 [place] YRS [facility] Sep 04, 2015 08:54 PM QUIT TOBACCO USE > 7 YEARS [place] A[place] [facility] Jul 31, 2005 02:57 PM H[place]ORY OF SMOKING [place] quit 25 years ago. [facility] Jul 30, 2004 02:24 PM H[place] OF SMO[place] Pt. quit about 30 years ago. [facility] Jan 16, 2004 09:21 AM QUIT TOBACCO USE > 7 YEARS [place] A[place] 30 years ago [facility] Jun 20, 2003 01:47 PM H[place] OF SMOKING [place] Pt. quit 25 years ago. [facility] Jun 08, 2002 02:23 PM H[place] OF SMOKING [place] [facility] Jun 09, 2001 05:10 PM H[place] OF SMOKING [place] [facility] Encounter Notes: All associated encounter notes This section contains the clinical notes associated to the Encounter. Date/Time Encounter Note(s) Provider Source Jun 12, 2022 10:59 AM AUDIOLOGY NOTE: SHERRY CABRERA [place] LOCAL TITLE: Audiology Note [facility] STANDARD TITLE: AUDIOLOGY NOTE DATE OF NOTE: JUN 12, 2022@10:59 ENTRY DATE: JUN 12, 2022@10:59:20 AUTHOR: ADIS ROBERTO COSIGNER: SHERRY ESTRADA URGENCY: STATUS: COMPLETED Audiology Note Has ADDENDA AUDIOLOGIC EVALUATION: REFERRED BY: Self : Jun AGE: 81 Date: JUN 12, 2022 10:59 REASON FOR EVALUATION: The was seen today f or an update audiological evaluation and new hearing aid selection. He is very sa tisfied with current hearing aids both in sound and in fit with cami ontiveros. Samantha jones reports his right hearing aid real estate closer wire has been damaged. LAST HEARING EVALUATION: 2018 RIGHT: WNL 250-1000 Hz, moderate steeply sloping to severe 8226-7840 Hz, profound SNHL 1551-4145 Hz LEFT: WNL 250-500 Hz, moderate to severe 750-300 0 Hz, profound SNHL 2048-0818 Hz. GENERAL MEDICAL HISTORY: Cancer: Lung Cancer - 2015, immunotherapy, no re surgence Diabetes: Denied. Head trauma/Injury/TBI: Denied. Hypertension: controlled with medication Stroke: Denied. TINNITUS: Constant, bilatera lly and louder in the left ear, high-pitched tone DIZZINESS/VERTIGO: Denied. FAMILY HISTORY OF HEARING LOSS: Patient denies any family history of hearing los s. 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 TYMPANOMETRY: Type As tympanogram - reduced middle ear complia nce, with pressure and ear canal volume within normal limits, bilaterally. IPSILATERAL ACOUSTIC REFLEX 1kHz: RIGHT: Absent LEFT: Absent RELIABILITY: Good. SYMMETRY: Asymmetrical RIGHT: WNL 250-500 Hz, mild steeply sloping to s evere 7898-2364 Hz, profound SNHL 3605-1442 Hz LEFT: WNL 250, moderate to severe 500-3000 Hz, p rofound SNHL 8063-7757 Hz. 25 dB HL worse 500 Hz only WORD DISCRIMINATION: CLARIBEL W22 1/2 List RIGHT - 48% at 80 dB HL with 50 dB EM LEFT - 60% at 80 dB HL with 50 dB EM Binaural - 76% at 75 dB HL AUDIOGRAM Audiogram is available in this patient's electro deborah medical record. To view the actual audiogram , click the Tools menu, and choose Rehab Medicine then Audiogram Display HEARING AID CHECK Visual inspection of the hea ring aids revealed left aid WNL. Right aid real estate closer broke at the speaker. -Cleaned hearing aids -Brushed mics -Changed dome -Changed wax filter -Changed real estate closer wire AD Listening check revealed both aids to sound appr opriate for the 's hearing loss. Gave both aids back to the Roshan kellyherman. [place] reported good, clear sound quality. EDUCATION: -Patient was counseled on th e test results, discussed hearing and speech scores results. benefits and limitations of amplificati on, and strategies to improve communication. RECOMMENDATIONS: - is still a candidate for binaural ampli fication. Reviewed hearing test and changes in speech scores re:201 8. -[place] is eligible for new hearing aids which were selected at this time. -Discussed different styles and the [place] pref ers LETICIA-312. Does not have a smartphone, and is not interested in Mark43 c onnectivity. PLAN: -Order GN Resound LETICIA-312 with size 3 MP receive r -HAF 2-3 weeks -Hearing evaluation in 2-3 years or sooner if a sudden change is noted -f/u per request PROCEDURES COMPLETED: Otoscopy Tympanometry Acoustic Reflex Air Conduction Threshold Testing Bone Conduction Threshold Testing Speech Real Estate Assessor Threshold Testing Word Recognition Testing Tobin Hearing Aid Check (Binaural) Hearing Aid Order (Binaural) /ivy/ Sherry Palomo CCC-A Staff Vice President Payment Signed: 06/12/2022 15:16 for ADIS ROBERTO Audiology Sales Data Analyst /ivy/ Sherry Palomo CCC-A Staff Vice President Payment Cosigned: 06/12/2022 15:16 06/12/2022 ADDENDUM STATUS: COMPLETED I have reviewed the patient's medical history an d above audiology note. I have edited the above audiology knocker off's note to reflect my findings. I agree with the assessment and plan. I have discussed these findings with the patient and audiology knocker off. /ivy/ Sherry Palomo CCC-A Staff Vice President Payment Signed: 06/12/2022 15:16 07/08/2022 ADDENDUM STATUS: COMPLETED RESOUND ONE 61 MINI LETICIA [facility]: [id number] PO#: [id number] Primary Features: RESOUND ONE DIRECTIONAL MICROPHONE [STD] AUTO-PHONE [STD] PUSH BUTTON [STD] TINNITUS SOUND GENERATOR [STD] WIRELESS [STD] MP SIZE 3 (RESOUND ONE) SF3 8PIN Hearing aid features: Battery: [id number] LETICIA Item: DOME SFIT3 TULIP Shell Color: WARM BAUTISTA (71) RESOUND ONE 61 MINI LETICIA [facility]: [id number] PO#: [id number] Primary Features: RESOUND ONE DIRECTIONAL MICROPHONE [STD] AUTO-PHONE [STD] PUSH BUTTON [STD] TINNITUS SOUND GENERATOR [STD] WIRELESS [STD] MP SIZE 3 (RESOUND ONE) SF3 8PIN Hearing aid features: Battery: [id number] LETICIA Item: EDUARDO SFIT3 TULIP Shell Color: WARM BAUTISTA (71) Aids have been ordered. Call and squeeze in for fitting during my admin time or my next available as soon as the aid arr becky. /ivy/ Stacia Holley Vice President Payment Signed: 07/08/2022 07:06 07/09/2022 ADDENDUM STATUS: COMPLETED [place]'s RESOUND ONE 61 MINI LETICIA arrived in i deborah. Certified. Placed on Dr. Rogers's desk for future HAF appointment. /ivy/ STAN LEIJA Audiology Health Material Cutter Signed: 07/09/2022 13:08 /ivy/ Stacia Holley Vice President Payment Cosigned: 07/10/2022 06:50
--- OUTSIDE RECORDS SUMMARY | 2022-07-17 12:35 | XMS_ITS | Encounter Summary ---
:1940 Author Organization Department [facility] rs Address [address] [place] [address] Support Name Relationship Address Phone BLAS CASTRO Unavailable [address] [place] [address] LBAS CASTRO Unavailable [address] [facility] [place] [address] THEA CASTRO Unavailable [address] [place] [address] Insurance Providers: All historical and current Section [...] [place] PREFERRED STAND Jun 01, [id number] [phone] CHERIE PERN,A PATIENT (FEDERAL) PROVIDER MACY 2006 70 7 RNOLD ORGANIZAT FAMIL ION (PPO) Y 105 BCBS OF PREFERRED STAND Nov 01 [id number] [phone] HALPER N,A PATIENT MASS FEP PROVIDER MACY 2004 70 6 RNOLD ORGANIZAT FAMIL ION (PPO) Y BCBS OF DENTAL STAND Nov 01, DENTAL [id number] [phone] MATTHEW,A PATIENT MASS FEP INSURANCE MACY 2004 70 6 RNOLD DENTAL [place] PREFERRED STAND Nov 01, 104 [id number] [phone] CHERIE PERN,A PATIENT FEDERAL PROVIDER MACY 2020 70 4 RNOLD ORGANIZAT SELF ION (PPO) [place] PREF[place] Nov 01, 105 [id number] [phone] CHERIE PERN,A PATIENT FEDERAL PROVIDER MACY 2005 70 4 RNOLD ORGANIZAT FAMIL ION (PPO) Y CAREMARK PRESCRIPT FEP Nov 02, [id number] [phone] HALP GURJIT,A PATIENT ([id number]) ION 2011 0 70 7 RNOLD CAREMARK PRESCRIPT CAREM Nov 01, [id number] [phone] HALP GURJIT,A PATIENT FEP BCBS ION ARK 2011 0 70 1 RNOLD FEPRX PLAN CAREMARK-F PRESCRIPT BCBS Nov 01, [id number] [phone] QUIÑONES LPERN,A PATIENT EP BCBS ION FEP 2011 0 70 331 RNOLD PLAN MEDICARE MEDICARE PART Jun 01, PART B [id number] HALPER N,A PATIENT (WNR) (M) B 2006 XF33 2 RNOLD MEDICARE MEDICARE PART Jun 01, PART A [id number] HALPER N,A PATIENT (WNR) (M) A 2006 XF33 2 RNOLD MEDICARE MEDICARE PART Jun 01, PART B [id number] HALPER N,A PATIENT (WNR) (M) B 2006 XF33 2 RNOLD MEDICARE MEDICARE PART Jun 01, PART A [id number] HALPER N,A PATIENT (WNR) (M) A 2006 38A 00 RNOLD MEDICARE MEDICARE PART Jun 01, PART B [id number] HALPER N,A PATIENT (WNR) (M) B 2006 38A 00 RNOLD MEDICARE MEDICARE PART Jun 01, PART A [id number] [phone] HALPER N,A PATIENT (WNR) (M) A 2006 [id number] 00 RNOLD MEDICARE MEDICARE PART Jun 01, PART B [id number] HALPER N,A PATIENT (WNR) (M) B 2006 [id number] 00 RNOLD MEDICARE MEDICARE PART Jun 01, PART A [id number] HALPER N,A PATIENT (WNR) (M) A 2006 38A 2 RNOLD MEDICARE MEDICARE PART Jun 01, PART B [id number] HALPER N,A PATIENT (WNR) (M) B 2006 38A 2 RNOLD MEDICARE MEDICARE PART Jun 01, PART A [id number] Chetan DAVID PATIENT (WNR) (M) Chetan 2006 [id number] 2 RNOLD Selected Encounter This section includes the information on record at [place] for the Encounter. Date/Time Encounter Type Encounter Description Reason Provider Source Jul 25, 2021 12:00 Outpatient Encounter EVENT (HISTORICAL) AM IHE Encounter Template Text not used by [place] Plan of Treatment: Future Appointments (+ 6 months) and Future Tests (+/- 45 days) The Plan of Treatment section includes future care activities for the patient from all [place] treatmentfacilities. This section includes future appointments and future orders which are active, pending orscheduled.Future Appointments This section includes appointments that were scheduled to occur 6 months from the date of the Encounter, up to a maximum of 20 appointments. The data comes from all [place] treatment facilities. Appointment Date/Time Appointment Type Appointment Facili ty Name Aug 05, 2021 08:30 AM AMBULATORY - MEDICINE [facility] Aug 07, 2021 03:00 PM AM[facility]ORY - [place]ICINE [place] [facility] Aug 25, 2021 08:30 AM AMBULATORY - SURGERY [place] [facility] Nov 28, 2021 10:30 AM AMBULATORY - SURGERY [place] [facility] Lab Results: +/- 30 days of the encounter This section includes the Chemistry and Hematology Lab Results on record with [place] for the patient. Radiology Reports and Pathology Reports are provided separately, in subsequent sections.Lab Results This section contains the Chemistry/Hematology Results that were resulted 30 days before or 30 daysafter the date of the Encounter. Date/Time Source Result Type Result - Unit Interpretation Reference Range Comment Aug 05, 2021 09:09 AM [place] [facility] ALT(SGPT) Sp ecimen Type: PLASMA Comment: Tests performed on [employer] (405) SN:[id number] Ordering Provid er: MERNA DOWD Report Released Date/Time: Feb 07, 2021 10:02 AM Reporting Lab: [place] [facility] [address] [facility] [address] Performing Lab: [place] [facility] [address] [facility] [address] ALT(SGPT) 15 7-52 Aug 05, 2021 09:09 AM [place] [facility] AST(SGOT) Sp ecimen Type: PLASMA Comment: Tests performed on Mena Apprentice Painter [employer]ush (405) SN:[id number] Ordering Provid er: MERNA DOWD Report Released Date/Time: Feb 07, 2021 10:02 AM Reporting Lab: [facility] [address] [facility] [address] Performing Lab: [facility] [address] [facility] [address] AST(SGOT) 19 5-34 Aug 05, 2021 09:09 [facility] CBC NO DIFF Specimen Typ e: BLOOD AM [facility] No comment enter ed. Ordering Provid er: MERNA DOWD Report Released Date/Time: Feb 07, 2021 10:02 AM Reporting Lab: [facility] [address] [facility] [address] Performing Lab: [facility] [address] [facility] [address] WBC 5.0 4.5-11.0 RBC 5.18 4.23-5.66 HGB 15.2 12.8-17 HEMATOCRIT 48.7 39.2-50.4 MCV 94.0 82-99 MCH 29.3 26.2-32.6 MCHC 31.2 30.8-35.1 PLT 190 140-360 MPV 10.8 9.2-12.4 RDW 14.3 12.0-16.0 Aug 05, 2021 [facility] CREATININE WITH eGFR Specimen T ype: PLASMA 09:09 AM [facility] PANEL Comment: Tests performed on [employer] (405) SN:[id number] Ordering Provid er: MERNA DOWD Report Released Date/Time: Feb 07, 2021 10:02 AM Reporting Lab: [facility] [address] [facility] [address] Performing Lab: [facility] [address] [facility] [address] CREATININE 1.29 0.5-1.5 eGFR 54 L >60 Immunizations: All administered on the encounter date This section contains immunizations associated to the Encounter. Immunization Series Date Issued Reaction Comments INFLUENZA, UNSPECIFIED FORMULATION Jul 25, 2021 Social History: Smoking Status (Most current) and Tobacco Use (All prior to encounter date) This section includes the most current, and the historical, smoking and tobacco-related health factors from the [place] facility where the Encounter took place.Current Smoking Status This section includes the most current smoking, or tobacco-related health factor, from the [place] facility where the Encounter took place. Date/Time Current Smoking Status Comment Facility May 28, 2020 02:23 PM VA-TOBACCO QUIT 15 YRS OR MORE [place] [facility] Tobacco Use History This section includes a history of the smoking, or tobacco- related health factors, that were collected on or before the date of the Encounter. The data comes from the [place] facility where the Encounter took place. Date/Time Smoking Status/Tobacco Use Comment [facility] May 28, 2020 02:23 PM VA-TOBACCO QUIT 15 YRS OR [place] MORE [facility] Dec 29, 2018 03:56 PM VA-TOBAC[place] FORMER USER [place] [facility] Dec 29, 2018 03:56 PM VA-TOBACCO QUIT 5 TO < 15 [place] YRS [facility] Sep 04, 2015 08:54 PM QUIT TOBACCO USE > 7 YEARS [place] AGO [facility] Jul 31, 2005 02:57 PM H[place]ORY OF SMOKING [place] Pt. quit 25 years ago. [facility] Jul 30, 2004 02:24 PM H[place]ORY OF SMOKING [place] Pt. quit about 30 years ago. [facility] Jan 16, 2004 09:21 AM QUIT TOBACCO USE > 7 YEARS [place] AGO 30 years ago [facility] Jun 20, 2003 01:47 PM H[place]ORY OF SMOKING [place] Pt. quit 25 years ago. [facility] Jun 08, 2002 02:23 PM H[place] OF SMOKING [place] [facility] Jun 09, 2001 05:10 PM H[place] OF SMOKING [place] [facility]
--- OUTSIDE RECORDS SUMMARY | 2022-07-17 12:36 | XMS_ITS | Encounter Summary ---
:1940 Author Organization Department of [facility] Address [address] [place] [address] Support Name Relationship Address Phone BLAS CASTRO Unavailable [phone] [facility] [place] [address] THEA CASTRO Unavailable [address] [place] [address] Insurance Providers: All historical and current Section [...] [place] PREFERR[place]AND Jun 01, [id number] [phone] CHERIE PERN,A PATIENT (FEDERAL) PROVIDER MACY 2006 70 7 RNOLD ORGANIZAT FAMIL ION (PPO) Y 105 BCBS OF PREFERRED STAND Nov 01, 105 [id number] [phone] HALPER N,A PATIENT MASS FEP PROVIDER MACY 2004 70 6 RNOLD ORGANIZAT FAMIL ION (PPO) Y BCBS OF DENTAL STAND Nov 01, DENTAL [id number] MATTHEW,A PATIENT MASS FEP INSURANCE MACY 2004 70 6 RNOLD DENTAL [place] PREFERRED STAND Nov 01, 104 [id number] [phone] CHERIE PERN,A PATIENT FEDERAL PROVIDER MACY 2020 70 4 RNOLD ORGANIZAT SELF ION (PPO) [place] PREFERRED STAND Nov 01, 105 [id number] CHERIE PERN,A PATIENT FEDERAL PROVIDER MACY 2004 70 4 RNOLD ORGANIZAT FAMIL ION (PPO) Y CAREMARK PRESCRIPT FEP Nov 02, [id number] [phone] HALP GURJIT,A PATIENT ([id number]) ION 2011 0 70 7 RNOLD CAREMARK PRESCRIPT CAREM Nov 01, [id number] [phone] HALP GURJIT,A PATIENT FEP BCBS ION ARK 2011 0 70 1 RNOLD FEPRX PLAN CAREMARK-F PRESCRIPT BCBS Nov 01, [id number] [phone] QUIÑONES LPERN,A PATIENT EP BCBS ION FEP 2011 0 [id number] 331 RNOLD PLAN MEDICARE MEDICARE PART Jun 01, PART A [id number] [phone] HALPER N,A PATIENT (WNR) (M) A 2006 38A 2 RNOLD MEDICARE MEDICARE PART Jun 01, PART B [id number] [id number] HALPER N,A PATIENT (WNR) (M) B 2006 38A 2 RNOLD MEDICARE MEDICARE PART Jun 01, PART A [id number] HALPER N,A PATIENT (WNR) (M) A 2006 XF33 2 RNOLD MEDICARE MEDICARE PART Jun 01, PART B [id number] [id number] HALPER N,A PATIENT (WNR) (M) B 2006 XF33 2 RNOLD MEDICARE MEDICARE PART Jun 01, PART A [id number] [id number] HALPER N,A PATIENT (WNR) (M) A 2006 XF33 2 RNOLD MEDICARE MEDICARE PART Jun 01, PART B [id number] HALPER N,A PATIENT (WNR) (M) B 2006 XF33 2 RNOLD MEDICARE MEDICARE PART Jun 01, PART A [id number] [id number] HALPER N,A PATIENT (WNR) (M) A 2006 38A 00 RNOLD MEDICARE MEDICARE PART Jun 01, PART B [id number] HALPER N,A PATIENT (WNR) (M) B 2006 38A 00 RNOLD MEDICARE MEDICARE PART Jun 01, PART A [id number] HALPER N,A PATIENT (WNR) (M) A 2006 XF33 00 RNOLD MEDICARE MEDICARE PART Jun 01, PART B [id number] [phone] HALPER N,A PATIENT (WNR) (M) B 2006 [id number] 00 RNOLD Selected Encounter This section includes the information on record at [facility] for the Encounter. Date/Time Encounter Type Encounter Description Reason Provider Source Jul 09, 2022 11:55 Outpatient Encounter ADMIN PAT ACTIVTIES AM (MASNONCT) IHE Encounter Template Text not used by [facility] Plan of Treatment: Future Appointments (+ 6 months) and Future Tests (+/- 45 days) The Plan of Treatment section includes future care activities for the patient from all [facility] treatmentfacilities. This section includes future appointments and future orders which are active, pending orscheduled.Future Appointments This section includes appointments that were scheduled to occur 6 months from the date of the Encounter, up to a maximum of 20 appointments. The data comes from all [facility] treatment facilities. Appointment Date/Time Appointment Type Appointment Facili ty Name Aug 24, 2022 11:00 AM AMBULATORY - SURGERY [facility] Sep 04, 2022 03:00 PM AMBUL[facility]ORY - SURGERY [facility] Active, Pending, and Scheduled Orders This section includes a listing of several types of active, pending, and scheduled orders, including clinic medications orders, diagnostic test orders, procedure orders and consult orders; where the start date of the order is 45 days before the date of the Encounter or 45 days after the date of the Encounter. The data comes from all [facility] treatment facilities. Test Date/Time Test Type Test Details Facility Name Jun 18, 2022 09:27 AM Consult Order OPHTHALMOLOGY IF ([facility] Cons Manager Marketing Sales's Choice Lab Results: +/- 30 days of the encounter This section includes the Chemistry and Hematology Lab Results on record with [facility] for the patient. Radiology Reports and Pathology Reports are provided separately, in subsequent sections.Lab Results This section contains the Chemistry/Hematology Results that were resulted 30 days before or 30 daysafter the date of the Encounter. Date/Time Source Result Type Result - Unit Interpretation Reference Range Comment 2022 09:[address] [facility] PSA (WHIZZER OPERATOR) Specime n Type: SERUM Comment: Testin g Performed on Mena Frog Or Oyster Farmworker (405) [id number] Ordering Provid er: CHRISTOPHER CARCAMO Report Released Date/Time: 2022 09:27 AM Reporting Lab: [facility] [address] [facility] [address] [facility] [address] Performing Lab: [facility] [address] [facility] [address] PSA (WHIZZER OPERATOR) 1.37 0-4.0 2022 09:29 [facility] P4 GLU,BUN,CREAT,LYTES,CA Specimen Type: PLASMA AM Comment: Tests performed on Mena Frog Or Oyster Farmworker (405) SN:[id number] Ordering Provid er: CHRISTOPHER CARCAMO Report Released Date/Time: 2022 09:27 AM Reporting Lab: [facility] [address] [facility] [address] Performing Lab: [facility] [address] [facility] [address] UREA NITROGEN 26 H 7-25 SODIUM 138 135-145 POTASSIUM 4.6 3.5-5.0 CHLORIDE 103 100-110 CARBON DIOXIDE 29 20-30 ANION GAP 6 4-16 GLUCOSE 95 65-100 CREATININE 1.46 0.5-1.5 CALCIUM 9.4 8.5-10.5 eGFR(CKD-EPI 2020) 48 L >60 2022 09:[address] [facility] CBC PROFILE Specime n Type: BLOOD No comment enter ed. Ordering Provid er: CHRISTOPHER CARCAMO Report Released Date/Time: 2022 09:27 AM Reporting Lab: [facility] [address] [facility] [address] Performing Lab: [facility] [address] [facility] [address] WBC 4.4 L 4.5-11.0 RBC 4.90 4.23-5.66 [...] smoking and tobacco-related health factors from the [facility] facility where the Encounter took place.Current Smoking Status This section includes the most current smoking, or tobacco-related health factor, from the [facility] facility where the Encounter took place. Date/Time Current Smoking Status Comment Facility May 28, 2020 02:23 PM VA-TOBACCO QUIT 15 YRS OR MORE [place] [facility] Tobacco Use History This section includes a history of the smoking, or tobacco- related health factors, that were collected on or before the date of the Encounter. The data comes from the [facility] facility where the Encounter took place. Date/Time Smoking Status/Tobacco Use Comment [facility] May 28, 2020 02:23 PM VA-TOBACCO QUIT 15 YRS OR [place] MORE [facility] Dec 29, 2018 03:56 PM VA-TOBACCO FORMER US[place] [facility] Dec 29, 2018 03:56 PM VA-TOBACCO QUIT 5 TO < 15 [place] YRS [facility] Sep 04, 2015 08:54 PM QUIT TOBACCO USE > 7 YEARS [place] AGO [facility] Jul 31, 2005 02:57 PM H[place]ORY OF SMOKING [place] Pt. quit 25 years ago. [facility] Jul 30, 2004 02:24 PM H[place]ORY OF SMOKING [place] Pt. quit about 30 years ago. [facility] Jan 16, 2004 09:21 AM QUIT TOBACCO USE > 7 YEARS [place] AGO 30 years ago [facility] Jun 20, 2003 01:47 PM H[place]ORY OF SMOKING [place] Pt. quit 25 years ago. [facility] Jun 08, 2002 02:23 PM H[place]ORY OF SMOKING [place] [facility] Jun 09, 2001 05:10 PM H[place]ORY OF SMOKING [place] [facility] Encounter Notes: All associated encounter notes This section contains the clinical notes associated to the Encounter. Date/Time Encounter Note(s) Provider Source Jul 09, 2022 11:55 AM NONVA NOTE: VALENTINA FUCHS LOCAL TITLE: NonVA Medical Records [facility] STANDARD TITLE: NONVA NOTE DATE OF NOTE: JUL 09, 2022@11:55 ENTRY DATE: JUL 09, 2022@11:55:25 AUTHOR: VALENTINA FUCHS EXP COSIGNER: URGENCY: STATUS: COMPLETED NONVA DOS:01/13/2022 OFFICE VISIT/A-FIB NOTE [facility] // VALENTINA FUCHS [employer]AM[employer] PILOT Signed: 07/09/2022 11:56 Receipt Acknowledged By: * AWAITING SIGNATURE * CHRISTOPHER CARCAMO
--- OUTSIDE RECORDS SUMMARY | 2022-07-17 12:36 | XMS_ITS | Encounter Summary ---
:[address] [facility] Address [address] [place] [address] Support Name Relationship Address Phone BLAS CASTRO Unavailable [phone] [facility] [place] [address] BLAS CASTRO Unavailable [address] [facility] [place] [address] THEA CASTRO Unavailable [address] [place] [address] Insurance Providers: All historical and current Section [...] [place] Jun 01, [id number] [phone] CHERIE PERN,A PATIENT (FEDERAL) PROVIDER MACY 2006 70 7 RNOLD ORGANIZAT FAMIL ION (PPO) Y 105 BCBS OF PREFERRED STAND Nov 01, 105 [id number] [phone] HALPER N,A PATIENT MASS FEP PROVIDER MACY 2004 70 6 RNOLD ORGANIZAT FAMIL ION (PPO) Y BCBS OF DENTAL STAND Nov 01, DENTAL [id number] [phone] MATTHEW,A PATIENT MASS FEP INSURANCE MACY 2004 70 6 RNOLD DENTAL [place] PREFERRED STAND Nov 01, 104 [id number] [phone] CHERIE PERN,A PATIENT FEDERAL PROVIDER MACY 2020 70 4 RNOLD ORGANIZAT SELF ION (PPO) [place] PREFERRED ST[place] Nov 01, 105 [id number] [phone] CHERIE PERN,A PATIENT FEDERAL PROVIDER MACY 2005 70 4 RNOLD ORGANIZAT FAMIL ION (PPO) Y CAREMARK PRESCRIPT FEP Nov 02, [id number] [phone] HALP GURJIT,A PATIENT ([id number]) ION 2011 0 70 7 RNOLD CAREMARK PRESCRIPT CAREM Nov 01, [id number] [phone] HALP GURJIT,A PATIENT FEP BCBS ION ARK 2011 0 70 1 RNOLD FEPRX PLAN CAREMARK-F PRESCRIPT BCBS Nov 01, [id number] [phone] QUIÑONES LPERN,A PATIENT EP BCBS ION FEP 2011 0 70 331 RNOLD PLAN MEDICARE MEDICARE PART Jun 01, PART B [id number] HALPER N,A PATIENT (WNR) (M) B 2006 XF33 2 RNOLD MEDICARE MEDICARE PART Jun 01, PART A [id number] HALPER N,A PATIENT (WNR) (M) A 2006 XF33 2 RNOLD MEDICARE MEDICARE PART Jun 01, PART B [id number] HALPER N,A PATIENT (WNR) (M) B 2006 XF33 2 RNOLD MEDICARE MEDICARE PART Jun 01, PART A [id number] HALPER N,A PATIENT (WNR) (M) A 2006 38A 00 RNOLD MEDICARE MEDICARE PART Jun 01, PART B [id number] HALPER N,A PATIENT (WNR) (M) B 2006 38A 00 RNOLD MEDICARE MEDICARE PART Jun 01, PART A [id number] HALPER N,A PATIENT (WNR) (M) A 2006 XF33 00 RNOLD MEDICARE MEDICARE PART Jun 01, PART B [id number] HALPER N,A PATIENT (WNR) (M) B 2006 XF33 00 RNOLD MEDICARE MEDICARE PART Jun 01, PART A [id number] [id number] HALPER N,A PATIENT (WNR) (M) A 2006 38A 2 RNOLD MEDICARE MEDICARE PART Jun 01, PART B [id number] HALPER N,A PATIENT (WNR) (M) B 2006 38A 2 RNOLD MEDICARE MEDICARE PART Jun 01, PART A [id number] Chetan DAVID PATIENT (JOHNNIER) (M) A 2006 XF33 2 RNOLD Selected Encounter This section includes the information on record at ME for the Encounter. Date/Time Encounter Type Encounter Description Reason Provider Source Jul 14, 2022 09:10 Outpatient Encounter ADMIN PAT ACTIVTIES AM (MASNONCT) IHE Encounter Template Text not used by ME Plan of Treatment: Future Appointments (+ 6 [...] 24, 2022 11:00 AM AMBULATORY - SURGERY [facility] Sep 04, 2022 03:00 PM [facility] Active, Pending, and Scheduled Orders This section [...] 2022 09:27 AM Consult Order OPH[facility]ALMOLOGY [facility] [place] [facility] Cons Marine Pilot's Choice Lab Results: +/- 30 days of [...] Reference Range Comment 2022 09:29 AM [facility] PSA (RADAR MECHANIC) Specime n Type: SERUM Comment: Testin g Performed on [place] Tally Clerk (405) [id number] Ordering Provid er: CHRISTOPHER CARCAMO Report Released Date/Time: 2022 09:27 AM Reporting [facility] [address] [facility] Performing Lab: [facility] [address] [facility] PSA (RADAR MECHANIC) 1.37 0-4.0 2022 09:29 [facility] P4 GLU,BUN,CREAT,LYTES,CA Specimen Type: PLASMA AM Comment: Tests performed on [employer] (405) SN:[id number] Ordering Provid er: CHRISTOPHER CARCAMO Report Released Date/Time: 2022 09:27 AM Reporting [facility] [address] [facility] Performing Lab: [facility] [address] [facility] UREA NITROGEN 26 H 7-25 SODIUM 138 135-145 POTASSIUM 4.6 3.5-5.0 CHLORIDE 103 100-110 CARBON DIOXIDE 29 20-30 ANION GAP 6 4-16 GLUCOSE 95 65-100 CREATININE 1.46 0.5-1.5 CALCIUM 9.4 8.5-10.5 eGFR(CKD-EPI 2020) 48 L >60 2022 09:29 AM [facility] CBC PROFILE Specime n Type: BLOOD No comment enter ed. Ordering Provid er: CHRISTOPHER CARCAMO Report Released Date/Time: 2022 09:27 AM Reporting Lab: [facility] [address] [facility] [address] Performing Lab: [facility] [address] [facility] [address] WBC 4.4 L 4.5-11.0 RBC 4.90 4.23-5.66 [...] YRS OR MORE [place] [facility] Tobacco Use History This section includes a history of the smoking, or tobacco- related health factors, that were collected on or before the date of the Encounter. The data comes from the [place] facility where the Encounter took place. Date/Time Smoking Status/Tobacco Use Comment [facility] May 28, 2020 02:23 PM VA-TOBACCO QUIT 15 YRS OR [place] MORE [facility] Dec 29, 2018 03:56 PM VA-TOBACCO FORMER USER [place] [facility] Dec 29, 2018 03:56 PM VA-TOBACCO QUIT 5 TO < 15 [place] YRS [facility] Sep 04, 2015 08:54 PM QUIT TOBACCO USE > 7 YEARS [place] AGO [facility] Jul 31, 2005 02:57 PM H[place] OF [place]KING [place] Pt. quit 25 years ago. [facility] Jul 30, 2004 02:24 PM H[place]ORY OF [place]MOKING [place] Pt. quit about 30 years ago. [facility] Jan 16, 2004 09:21 AM QUIT TOBACCO USE > 7 YEARS [place] AGO 30 years ago [facility] Jun 20, 2003 01:47 PM H[place]ORY OF [place]MOKING [place] Pt. quit 25 years ago. [facility] Jun 08, 2002 02:23 PM H[place]ORY OF SMOKING [place] [facility] Jun 09, 2001 05:10 PM H[place] OF [place]MOKING [place] [facility] Encounter Notes: All associated encounter notes This section contains the clinical notes associated to the Encounter. Date/Time Encounter Note(s) Provider Source Jul 14, 2022 09:10 AM ADMINISTRATIVE NOTE: NIDA CHOT LOCAL TITLE: Has Admin Note [facility] STANDARD TITLE: ADMINISTRATIVE NOTE DATE OF NOTE: JUL 14, 2022@09:10 ENTRY DATE: JUL 14, 2022@09:11 AUTHOR: NIDA CHO EXP COSIGNER: URGENCY: STATUS: COMPLETED Has Admin Note Has ADDENDA Mr Castro called and wanted to know if you can he could have his hearing aids mailed to him? he said that it is [address] for him /ivy/ NIDA CHO Signed: 07/14/2022 09:12 Receipt Acknowledged By: 07/14/2022 13:25 /ivy/ STAN LEIJA Audiology Health Design Manager 07/14/2022 ADDENDUM STATUS: COMPLETED See audiology phone note on 07/14/22. /ivy/ STAN LEIJA Audiology Health Design Manager Signed: 07/14/2022 13:25
--- OUTSIDE RECORDS SUMMARY | 2022-07-17 12:37 | XMS_ITS | Encounter Summary ---
:1940 Author Organization [facility] [place] [address] Care Team Providers Name Role Phone Brianne Sin MD Primary Care Provider Encounter Details Date Type Department Care Team Description 09/07/2019 Office Visit Hematology/Oncology Rowan Bajwa MD Malignant neoplasm of at [facility] upper lobe of right [address] lung [place], [place] HEMATOLOGY/ONCOLOG [address] Y DEPT. [phone] [place], [place] [address] Social History Tobacco Use Types Packs/Day Years Used Date Former Smoker Cigarettes 30 Quit: 10/01/19 82 Smokeless Tobacco: Never Used Alcohol Use Standard Drinks/Week Comments No 0 (1 standard drink = 0.6 oz pure alcoho l) Sex Assigned at Date Recorded Not on file documented as of this encounter Last Filed Vital Signs Vital Sign Reading Time Taken Comments Blood Pressure 153/61 09/07/2019 11:31 AM EST Pulse 62 09/07/2019 11:31 AM EST Temperature 36.3 ??C (97.3 ??F) 09/07/2019 11:31 AM EST Respiratory Rate 18 09/07/2019 11:31 AM EST Oxygen Saturation 99% 09/07/2019 11:31 AM EST Inhaled Oxygen Concentration - - Weight 68.9 kg (152 lb) 09/07/2019 11:31 AM EST Height 173 cm (5' 8.11) 09/07/2019 11:31 AM EST copied Body Mass Index 23.04 09/07/2019 11:31 AM EST documented in this encounter Progress Notes Jimmy Bajwa MD - 09/07/2019 11:30 AM EST Subjective: Patient ID: Parveen Gamez is a 79 y.o. male. HPI Metastatic adenocarcinoma of the right lung presenting 10/15 B DVT at presentation rx lovenox Initially treated with carboplatinum and Alimta Partial remission followed by Alimta maintenance Progressive disease in 04/16, start nivolumab Stop nivolumab 06/[address] scan 07/19 question of progressive disease PET scan 09/18 progressive disease with left hypermetabolic nodularity and pleural effusion PET scan 11/19 in [place]: Improved Resume nivolumab in [facility] Return to [facility] 03/02/19 PET negative 04/21/19 Stop nivolumab for grade 3 colitis 05/19 The patient returns to the [facility]. He had been receiving single agent nivolumab for his metastatic adenocarcinoma of the right lung. We stopped it 05/19 due to grade 3 diarrhea. We also started him on 1 mg/kg of prednisone. He has tapered down to 10 mg prednisone q day. Some days of semisolid stools. Weight stable. No SOB or cough. Itching still. He is exercising pretty regularly and he feels well. Planning to go to [place] over the next week. Patient Active Problem List Diagnosis Code ??? Seborrheic keratosis L82.1 ??? Branch retinal vein occlusion of left eye H34.8322 ??? 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 Transient ischemia I99.8 ??? Nuclear sclerosis H25.10 ??? Inflamed seborrheic keratosis L82.0 ??? Other seborrheic keratosis L82.1 ??? Cancer of right lung lower lobe C34.91 ??? Irritant contact dermatitis L24.9 ??? Dermatitis L30.9 ??? Epidermal cyst L72.0 ??? 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 Pruritus L29.9 ??? Visit for suture removal Z48.02 Current Outpatient Medications: ??? predniSONE (DELTASONE) 20 mg Tablet, Take 60 mg daily x 2 weeks then taper as directed (Patient taking differently: Take 10 mg by mouth daily. Trying to stay at 10 mg), Disp: 90 tablet, Rfl: 3 ??? omeprazole (PRILOSEC) 10 mg Capsule, Delayed Release(E.C.), Take 40 mg by mouth daily., Disp: , Rfl: ??? loperamide (IMODIUM A-D) 2 mg Tablet, Take 4 mg by mouth daily. Maximum 16 mg in 24 hours , Disp: , Rfl: ??? gabapentin (NEURONTIN) 300 mg Capsule, 900 mg nightly. occ takes 900 mg prn in addition, rarely takes 900 mg TID, Disp: , Rfl: ??? calcium-vitamin D3 600 mg calcium- 400 unit Tablet, Take by mouth., Disp: , Rfl: ??? triamcinolone (ARISTOCORT) 0.5 % Cream, Apply topically 3 times daily as needed., Disp: , Rfl: ??? enoxaparin (LOVENOX) 80 mg/0.8 mL Syringe, Inject 100 mg subcutaneously daily. Indications: DeepVein Thrombosis with Pulmonary Embolism, Disp: , Rfl: ??? METOPROLOL SUCCINATE ORAL, Take 25 mg by mouth daily as needed., Disp: , Rfl: Allergies Allergen Reactions ??? Pcn [Penicillins] ??? Sulfa (Sulfonamide Antibiotics) Review of Systems Constitutional: Negative for fatigue, fever and unexpected weight change. HENT: Negative for nosebleeds. Respiratory: Negative for cough and shortness of breath. Cardiovascular: Negative for chest pain and palpitations. Gastrointestinal: Negative for abdominal pain and diarrhea. Musculoskeletal: Negative for back pain. Skin: Negative for rash (no rash but persisten itch). Neurological: Negative for speech difficulty. Hematological: Negative for adenopathy. Does not bruise/bleed easily. All other systems reviewed and are negative. Objective: Physical Exam Constitutional: He is oriented to person, place, and time. He appears well- nourished. No distress. HENT: Mouth/Throat: No oropharyngeal exudate. Eyes: No scleral icterus. Cardiovascular: Normal rate, regular rhythm and normal heart sounds. Pulmonary/Chest: Breath sounds normal. He has no wheezes. Abdominal: Soft. Bowel sounds are normal. There is no splenomegaly. There is no tenderness. Musculoskeletal: He exhibits no edema. Lymphadenopathy: He has no cervical adenopathy. He has no axillary adenopathy. Right: No inguinal adenopathy present. Left: No inguinal adenopathy present. Neurological: He is oriented to person, place, and time. PET scan from last week, I reviewed the images personally: IMPRESSION 1. No evidence of local recurrence or metastasis. 2. Stable small right pleural effusion. ?? Preliminary report signed by: Shakeel Shell at 09/01/2019 3:26 PM ?? I have personally reviewed the image(s) and the residents interpretation and agree with the findings, Jimmy Gaona at 09/01/2019 4:03 PM ?? Thank you for letting us participate in the care of this patient. For questions regarding this report, please contact the number below. Assessment and Plan: 79-year-old man with a long history of locally advanced/metastatic adenocarcinoma of the lung. He was initially treated with carboplatinum and Alimta and for his second line therapy he was treated withnivolumab. 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 He seems to be a bit better. PET scan is reassuring that he remains in remission with no active cancer. No reason to resume therapy at this point. He is planning to go to [place] and will follow up with his oncologist there. We will forward our records to them. We plan to see him back here in the spring when he returns. I would plan another PET scan in about 6months unless he has more symptoms before then. Because his GI symptoms are persisting despite stopping the immunotherapy about 4 months ago I thinkit would be reasonable for him to have a GI consultation while he is in [place]. There may be other contributing factors to his persistent loose stools. I encouraged him to continue with his prednisone taper. documented in this encounter Plan of Treatment Upcoming Encounters Date Type Specialty Care Team Description 10/02/2022 Office Visit Dermatology Ashok Xiong MD [address] [facility] D[facility] [place], [place] [address] (Wo rk) documented as of this encounter Visit Diagnoses Diagnosis Malignant neoplasm of upper lobe of righ t lung Malignant neoplasm of upper lobe, bronch us or lung documented in this encounter Care Teams Hand I Blocker Relationship Specialty Start Date End Date Brianne Sin MD PCP - General Family Medicine 12/24/15 02/01/[address] [place] [address] [place] [id number] documented as of this encounter
--- OUTSIDE RECORDS SUMMARY | 2022-07-17 12:37 | XMS_ITS | Encounter Summary ---
:1940 Author Organization [place] [address] Care Team Providers Name Role Phone Brianne Sin MD Primary Care Provider Encounter Details Date Type Department Care Team Description 08/03/2019 Orders Only Hematology/Oncology at [facility] [address] [phone] Social History Tobacco Use Types Packs/Day Years Used Date Former Smoker Cigarettes 1 30 Quit: 10/01/19 80 Smokeless Tobacco: Never Used Alcohol Use Standard Drinks/Week Comments No 0 (1 standard drink = 0.6 oz pure alcoho l) Sex Assigned at Date Recorded Not on file documented as of this encounter Plan of Treatment Upcoming Encounters Date Type Specialty Care Team Description 10/02/2022 Office Visit Dermatology Ashok Xiong MD [address] [place] [address] DERMATOLOGY [place], [place] [address] (Wo rk) documented as of this encounter Visit Diagnoses Not on filedocumented in this encounter Care Teams Monomer Recovery Operator Relationship Specialty Start Date End Date Brianne Sin MD PCP - General Family Medicine 12/24/15 02/01/[address] [place] [address] [place] [phone] documented as of this encounter
--- OUTSIDE RECORDS SUMMARY | 2022-07-17 12:37 | XMS_ITS | Encounter Summary ---
:1940 [place] [address] Care Team Providers Name Role Phone Brianne Sin MD Primary Care Provider Encounter Details Date Type Department Care Team Description 08/27/2021 Ancillary Procedure Radiology Library at Debbie Sin [facility] [address] [place] [address] [place], [place] [phone] (Wo rk) Social History Tobacco Use Types Packs/Day Years [...] 10/02/2022 Office Visit Dermatology Ashok Xiong MD [address] [place] [address] DERMATOLOGY [place], [place] [address] (Wo rk) documented as of this encounter Procedures Procedure Name Priority Date/Time Associated Diagnosis Comme nts FILM LIBRARY Routine 08/27/2021 12:00 AM Results for this STORAGE ONLY CT EDT procedure ar e in CHEST the results section. documented in this encounter Results Film Library- Storage Only CT Chest (08/27/2021 12:00 AM EDT) Specimen (Source) Anatomical Location Collection Method / Collectio n Time Received Time / Laterality Volume Narrative RAD - 09/01/2021 8:02 AM EDT This exam is auto-finalizing. It's purpo se is for storage only. Brianne Sin MD IMG FILM LIBRARY ORDERABLES Performing Organization Address City/State/ZIP Code Phon e Number RAD [place], [place] documented in this encounter Visit Diagnoses Not on filedocumented in this encounter Care Teams Speech And Drama Teacher Relationship Specialty Start Date End Date Brianne Sin MD PCP - General Family Medicine 12/24/15 02/01/[address] [place] [address] [place] [phone] documented as of this encounter
--- OUTSIDE RECORDS SUMMARY | 2022-07-17 12:37 | XMS_ITS | Encounter Summary ---
:1940 Author Organization [facility] [place] [address] Care Team Providers Name Role Phone Brianne Sin MD Primary Care Provider Reason for Visit Reason Comments Follow-up Encounter Details Date Type Department Care Team Description 12/04/2021 Office Visit Dermatology at Ashok Xiong, Seborrh eic keratosis; Terri JANE Pruritus [address] [facility] [place] DERMATOLOGY [place], [place] [phone] Social History Tobacco Use Types Packs/Day Years Used Date Former Smoker Cigarettes 1 30 Quit: 10/01/19 82 Smokeless Tobacco: Never Used Alcohol Use Standard Drinks/Week Comments No 0 (1 standard drink = 0.6 oz pure alcoho l) Sex Assigned at Date Recorded Not on file documented as of this encounter Progress Notes Ashok Xiong MD - 12/04/2021 8:45 AM EST Problem: 1. ??Follow-up pruritus, last visit August 2021 2. ??History of multiple seborrheic keratoses 3. ??History of generalized pruritus associated with his ongoing oncologic therapy 4. ??History of past actinic keratosis, treated with liquid nitrogen and also with 5-FU in the past at the [facility] Parveen follows up and his itching is starting to bother him more. The use of triamcinolone cream is only minimally helpful. He is using CeraVe cream topically. He reminds me after he this began after he been on Opdivo. He is now off of this. Patient went down to [place] for 5 weeks but he became depressed being in the same area without his and so came home. Physical examination reveals a pleasant 81-year-old gentleman who has numerous seborrheic keratoses present on the torso and flanks. He has a few minimal excoriations of the upper back. His skin is somewhat xerotic. Assessment plan: Pruritus, generalized 1. Continue gabapentin per PCP 2. Today patient does not desire Kenalog injection today 40 mg were given IM to left upper outer quadrant of buttocks, and same dose to right upper outer dose of buttocks. 3. Return to clinic in 2 months for repeat check 4. Discussed the the option of phototherapy either at [facility] or detaining both closer to home. He lives in [place]. CC: Brianne Sin MD documented in this encounter Plan of Treatment Upcoming Encounters Date Type Specialty Care Team Description 10/02/2022 Office Visit Dermatology Ashok Xiong MD [address] [facility] DERMATOLOGY [place], [place] [address] (Wo rk) documented as of this encounter Visit Diagnoses Diagnosis Seborrheic keratosis Other seborrheic keratosis Pruritus Unspecified pruritic disorder documented in this encounter Care Teams Upward Bound Director Relationship Specialty Start Date End Date Brianne Sin MD PCP - General Family Medicine 12/24/15 02/01/[address] [place] [address] [place] [phone] documented as of this encounter
--- OUTSIDE RECORDS SUMMARY | 2022-07-17 12:37 | XMS_ITS | Encounter Summary ---
:1940 [place] [address] Care Team Providers Name Role Phone Mari Jacob MD Primary Care Provider Reason for Referral Diagnostic Test (Routine) - Authorized Specialty Diagnoses / Procedures Referred By Contact Refer red To Contact Radiology Diagnoses Malignant neoplasm of right lung, unspecified part of lung Malignant neoplasm of upper lobe of right lung Lucero Quiñones APRN Procedures CT Chest Abdomen Pelvis w Contrast (Generic) [facility] HEMATOLOGY/[place] [address] Referral ID Status Reason Start Expiration Visits Visits Date Date Requested Authorized [id number] Authorized Specialty 03/05/2022 09/05/2023 1 1 Service Requested Encounter Details Date Type Department Care Team Description 03/05/2022 Office Visit Hematology/Oncology Rowan Bajwa MD [facility] HEMATOLOGY/[place] [address] Malignant neoplasm of right lung, unspec ified part of lung; at [facility] Lucero Quiñones APRN [facility] HEMATOLOGY/[place] [address] Malignant neoplasm of upper lobe of righ t lung; [address] Immunotherapy; [place], [place] History of immunotherapy; [id number] Well adult exam; [phone] Hypothyroidism due to medication Social History Tobacco Use Types Packs/Day Years Used Date Former Smoker Cigarettes 1 30 Quit: 10/01/19 82 Smokeless Tobacco: Never Used Alcohol Use Standard Drinks/Week Comments No 0 (1 standard drink = 0.6 oz pure alcoho l) Sex Assigned at Date Recorded Not on file documented as of this encounter Last Filed Vital Signs Vital Sign Reading Time Taken Comments Blood Pressure 129/85 03/05/2022 10:33 AM EDT Pulse 59 03/05/2022 10:33 AM EDT Temperature 36.3 ??C (97.3 ??F) 03/05/2022 10:33 AM EDT Respiratory Rate 20 03/05/2022 10:33 AM EDT Oxygen Saturation 100% 03/05/2022 10:33 AM EDT Inhaled Oxygen Concentration - - Weight 71.4 kg (157 lb 6.4 oz) 03/05/2022 10:33 AM EDT Height 170.2 cm (5' 7.01) 03/05/2022 10:33 AM EDT Body Mass Index 24.65 03/05/2022 10:33 AM EDT documented in this encounter Progress Notes Lucero Quiñones, MONUMENT CARVER - 03/05/2022 10:30 AM EDT Subjective Patient ID: Parveen Gamez is a 81 y.o. male here for f/u of adenocarcinoma of the lung Patient Active Problem List Diagnosis ??? Hypothyroidism due to drugs ??? Cancer of right lung lower lobe Metastatic adenocarcinoma of the right lung presenting 10/15 B DVT at presentation rx lovenox Change to eliquis 08/20 Initially treated with carboplatinum and Alimta Partial remission followed by Alimta maintenance Progressive disease in 04/16, start nivolumab Stop nivolumab 06/[address] scan 07/19 question of progressive disease PET scan 09/18 progressive disease with left hypermetabolic nodularity and pleural effusion PET scan 11/19 in [place]: Improved Resume nivolumab [place] Return to [facility] 03/02/19 Stop nivolumab for grade 3 colitis 05/19 PET negative 04/[address] stable 02/20 ??? Visit for suture removal ??? Pruritus ??? Epidermal cyst ??? Dermatitis ??? Irritant contact dermatitis ??? Other seborrheic keratosis ??? Inflamed seborrheic keratosis ??? 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 Retinoschisis of left eye ??? Macular pucker of both eyes ??? Transient ischemia ??? Nuclear sclerosis ??? Seborrheic keratosis HPI Parveen has been doing well. His energy is good. He has had no recent infections. No new or concerrning symptoms. He did get hives the evening of his CT scan - he took zyrtec which did help. He continues to struggle with itching/pruritis - being followed by Dr. Xiong for this, currently treated with steroids, gabapentin and phototherapy. Review of Systems Constitutional: Negative. HENT: Negative. Eyes: Negative. Respiratory: Negative. Negative for cough and shortness of breath. Cardiovascular: Negative. Negative for chest pain, palpitations and leg swelling. Gastrointestinal: Negative. Negative for constipation, diarrhea, nausea and vomiting. Genitourinary: Negative. Musculoskeletal: Negative. Skin: Negative. pruritis Neurological: Negative. Negative for weakness and numbness. Psychiatric/Behavioral: Negative. Objective Physical Exam Constitutional: General: He is not in acute distress. Appearance: He is well-developed. HENT: Mouth/Throat: Pharynx: No oropharyngeal exudate. Eyes: Conjunctiva/sclera: Conjunctivae normal. Pupils: Pupils are equal, round, and reactive to light. Cardiovascular: Rate and Rhythm: Normal rate and regular rhythm. Heart sounds: Normal heart sounds. No murmur heard. Pulmonary: Effort: Pulmonary effort is normal. Breath sounds: Normal breath sounds. No wheezing or rales. Chest: Breasts: Right: No supraclavicular adenopathy. Left: No supraclavicular adenopathy. Abdominal: General: Bowel sounds are normal. Palpations: Abdomen is soft. There is no mass. Tenderness: There is no guarding or rebound. Musculoskeletal: General: Normal range of motion. Cervical back: Normal range of motion and neck supple. Lymphadenopathy: Cervical: No cervical adenopathy. Upper Body: Right upper body: No supraclavicular adenopathy. Left upper body: No supraclavicular adenopathy. Skin: General: Skin is warm and dry. Neurological: Mental Status: He is alert and oriented to person, place, and time. WBC- 5 HG 14.6, PLT - 184, Cr 1.4 TSH 3.61 BP 129/85 (Patient Position: Sitting) Pulse 59 Temp 36.3 ??C (97.3 ??F) (Temporal) Resp 20 Ht 170.2 cm (5' 7.01) Wt 71.4 kg (157 lb 6.4 oz) SpO2 100% BMI 24.65 kg/m?? Assessment and Plan 81-year-old man with a history of locally advanced/metastatic adenocarcinoma of the lung. He was initially treated with carboplatinum and Alimta and for his second line therapy he was treated with nivolumab. ?? 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 He had achieved a partial remission which remains intact. ?? No signs of progressive disease and overall he is feeling well. His CT scan is stable as far as no signs if metastatic disease progression - he did have a reaction to the CT contrasta nd broke out in hives - he treated himself with Zyrtec and they resolved. Before his next CT he will prophylax per protocol =- 50 mg of prednisone 13,7 and 1 hour before scan as well as benadryl 50mg 1 hour before. I did caution with driving with this dose of benadryl. He CT scan does hint at pulmonary hypertension. He does see cardiology Dr. Fox in [place] - I willshare this information with Dr. Fox via this note. 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 ?? We will plan to see him back in 6 months with a repeat CT scan of the chest. ?? If he has more problems he will let us know otherwise we will see him back in 6 months. documented in this encounter Plan of Treatment Upcoming Encounters Date Type Specialty Care Team Description 10/02/2022 Office Visit Dermatology Ashok Xiong MD [address] [place] [address] DERMATOLOGY [place], [place] [address] (Wo rk) Scheduled Orders Name Type Priority Associated Diagnoses Order S chedule CBC (with Diff) Lab Routine Malignant neoplasm of Exp ected: 09/05/2022 right lung, unspecified ([place] roximate), part of lung Expires: 2022 Comprehensive metabolic Lab Routine Malignant neoplas m of Expected: 09/05/2022 panel (non-fasting) right lung, unspecifi ed (Approximate), part of lung Expires: 2022 TSH Lab Routine Malignant neoplasm of Expect ed: right lung, unspecified 03/2022, Expires: part of lung 03/07/2023 Immunotherapy History of immunotherapy Well adult exam Hypothyroidism due to medication CT Chest Abdomen Pelvis w Imaging Routine Malignant neopl asm of Expected: Contrast (Generic) right lung, unspecifie d 09/05/2022, Expires: part of lung 03/07/2023 Malignant neoplasm of upper lobe of right lung documented as of this encounter Visit Diagnoses Diagnosis Malignant neoplasm of right lung, unspec ified part of lung Malignant neoplasm of upper lobe of righ t lung Malignant neoplasm of upper lobe, bronch us or lung Immunotherapy Reserved for inherently not codable conc epts WITHOUT codable children History of immunotherapy Well adult exam Routine general medical examination at a health care facility Hypothyroidism due to medication documented in this encounter Care Teams Amusement Ride Inspector Relationship Specialty Start Date End Date Mari Jacob MD PCP - General Family Medicine 02/02/[address] [place] [address] [place] [address] documented as of this encounter
--- OUTSIDE RECORDS SUMMARY | 2022-07-17 12:37 | XMS_ITS | Encounter Summary ---
:1940 [place] [address] Care Team Providers Name Role Phone Brianne Sin MD Primary Care Provider Encounter Details Date Type Department Care Team Description 03/06/2021 Office Visit Hematology/Oncology Rowan Bajwa MD Malignant neoplasm of upper lobe of righ t lung; at [facility] due to drugs [address] [place] [address] [place], [place] HEMATOLOGY/ONCOLO [id number] [place] DEPT. [phone] [place], [place] [address] Social History Tobacco Use Types Packs/Day Years Used Date Former Smoker Cigarettes 30 Quit: 10/01/19 80 Smokeless Tobacco: Never Used Alcohol Use Standard Drinks/Week Comments No 0 (1 standard drink = 0.6 oz pure alcoho l) Sex Assigned at Date Recorded Not on file documented as of this encounter Last Filed Vital Signs Vital Sign Reading Time Taken Comments Blood Pressure 160/86 03/06/2021 2:00 PM EDT Pulse 70 03/06/2021 2:00 PM EDT Temperature 36.6 ??C (97.9 ??F) 03/06/2021 2:00 PM EDT Respiratory Rate 18 03/06/2021 2:00 PM EDT Oxygen Saturation 100% 03/06/2021 2:00 PM EDT Inhaled Oxygen Concentration - - Weight 71.7 kg (158 lb) 03/06/2021 2:00 PM EDT Height 170.2 cm (5' 7.01) 03/06/2021 2:00 PM EDT Body Mass Index 24.74 03/06/2021 2:00 PM EDT documented in this encounter Progress Notes Jimmy Bajwa MD - 03/06/2021 2:00 PM EDT Subjective: Patient ID: Parveen Gamez is a 80 y.o. male. HPI Metastatic adenocarcinoma of the [...] and pleural effusion PET scan 11/19 [place]: [place]proved [place]ume [place]iv[place]umab [place] Return to [facility] 03/02/19 Stop nivolumab for grade 3 colitis 05/19 PET negative 04/[address] stable 02/19 The patient returns to the [facility] in follow-up for his lung cancer. He has been off therapy since 05/19. He generally has continued to do quite well. He did spend the entire winter up here in [place] and thought it was particularly long. Still recovering from the of his last fall. He does have itching of his skin but no diarrhea. No new pulmonary symptoms. No fevers chills sweats or weight loss. He did have his CT scan which was stable to slightly improved. Patient Active Problem List Diagnosis Code ??? [...] suture removal Z48.02 Current Outpatient Medications: ??? Eliquis 5 mg Tablet, , Disp: , Rfl: ??? gabapentin (NEURONTIN) 300 mg Capsule, Take 900 mg by mouth 3 times daily. occ takes 900 mg prn in addition, rarely takes 900 mg TID, Disp: , Rfl: ??? calcium-vitamin D3 600 mg calcium- 400 unit Tablet, Take by mouth., Disp: , Rfl: ??? triamcinolone (ARISTOCORT) 0.5 % Cream, Apply topically 3 times daily as needed., Disp: , Rfl: ??? METOPROLOL SUCCINATE ORAL, Take 25 mg by mouth daily as needed., Disp: , Rfl: ??? omeprazole (PRILOSEC) 10 mg Capsule, Delayed Release(E.C.), Take 40 mg by mouth daily., Disp: , Rfl: ??? loperamide (IMODIUM A-D) 2 mg Tablet, Take 4 mg by mouth daily. Maximum 16 mg in 24 hours , Disp: , Rfl: Allergies Allergen Reactions ??? Pcn [Penicillins] ??? Sulfa (Sulfonamide Antibiotics) On Exam he is somewhat tearful but in no acute distress BP 160/86 (Patient Position: Sitting) Pulse 70 Temp 36.6 ??C (97.9 ??F) (Temporal) Resp 18 Ht 170.2 cm (5' 7.01) Wt 71.7 kg (158 lb) SpO2 100% BMI 24.74 kg/m?? Sclera white Mucous membranes moist Alert and oriented Cardiac rate normal Respiratory effort nonlabored No peripheral edema No visible rash Laboratory results White count 5.2, ANC 3.6, hemoglobin 14.4, platelets 175 Creatinine 1.2, TSH 4.24 CT of the chest done at weeks I reviewed the images personally and agree that his chest findings are stable to slightly improved. Assessment and Plan: 80-year-old man with a history of locally advanced/metastatic adenocarcinoma of the lung. He was initially treated with carboplatinum and Alimta and for his second line therapy he was treated with nivolumab. 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 He had achieved a partial remission which remains intact. No signs of progressive disease and overall he is feeling well. We will plan to see him back in 6 months with a repeat CT scan of the chest. He request that that scan be done up in [facility] which is closer to where he lives. If he has more problems he will let us know otherwise we will see him back in 6 months. 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
--- OUTSIDE RECORDS SUMMARY | 2022-07-17 12:37 | XMS_ITS | Encounter Summary ---
:1940 Author Organization [facility] [place] [address] Care Team Providers Name Role Phone Brianne Sin MD Primary Care Provider Reason for Referral Diagnostic Test (Routine) - Closed Specialty Diagnoses / Procedures Referred By Contact Refer red To Contact Radiology Diagnoses Malignant neoplasm of upper lobe of right lung Jimmy Bajwa MD [facility] Rad Nuclear Med Procedures NM Malik PET CT Skull Base to Mid-thigh [facility] HEMATOLOGY/[place] [address] [place] [address] Referral ID Status Reason Start Date Expiration Date Visits V isits Requested Authorized [id number] Closed Specialty 08/03/2019 08/02/2020 1 1 Service Requested Reason for Visit Diagnostic Test (Routine) - Closed Specialty Diagnoses / Procedures Referred By Contact Refer red To Contact Radiology Diagnoses Malignant neoplasm of upper lobe of right lung Jimmy Bajwa MD [facility] Rad Nuclear Med Procedures NM Malik PET CT Skull Base to Mid-thigh [facility] HEMATOLOGY/[place] [address] [place] [address] Referral ID Status Reason Start Date Expiration Date Visits V isits Requested Authorized [id number] Closed Specialty 08/03/2019 08/02/2020 1 1 Service Requested Encounter Details Date Type Department Care Team Description 09/01/2019 Hospital Encounter Nuclear Medicine at Jimmy Bajwa, Malignant neoplasm Jenny Landaverde MD of upper lobe of [facility] [address] [place], [place] HEMATOLOGY/ONCOL [address] [facility] DEPT. [phone] [place] [address] Social History Tobacco Use Types Packs/Day Years Used Date Former Smoker Cigarettes 11 30 Quit: 10/01/19 80 Smokeless Tobacco: Never Used Alcohol Use Standard Drinks/Week Comments No 0 (1 standard drink = 0.6 oz pure alcoho l) Sex Assigned at Date Recorded Not on file documented as of this encounter Medications at Time of Discharge Medication Sig Dispensed Refills Start Date End Date loperamide (IMODIUM A-D) Take 4 mg by mouth 0 2 mg Tablet daily. Maximum 16 mg in 24 hours gabapentin (NEURONTIN) Take 900 mg by mouth 0 300 mg Capsule 3 times daily. occ takes 900 mg prn in addition, rarely takes 900 mg TID calcium-vitamin D3 600 mg Take by mouth. 0 calcium- 400 unit Tablet omeprazole (PRILOSEC) 10 Take 40 mg by mouth 0 09/04/2021 mg Capsule, Delayed daily. Release(E.C.) triamcinolone Apply topically 3 0 01/2022 (ARISTOCORT) 0.5 % Cream times daily as needed. METOPROLOL SUCCINATE ORAL Take 25 mg by mouth 0 09/04/2021 daily as needed. documented as of this encounter Plan of Treatment Upcoming Encounters Date Type Specialty Care Team Description 10/02/2022 Office Visit Dermatology Ashok Xiong MD [address] [place] [address] DERMATOLOGY [place], [place] [address] (Wo rk) documented as of this encounter Procedures Procedure Name Priority Date/Time Associated Diagnosis Comme nts NM MALIK PET CT Routine 09/01/2019 12:14 PM Malignant neop lasm Results for this SKULL BASE TO EDT of upper lobe of procedure are in MID-THIGH right lung the results section. documented in this encounter Results NM Malik PET CT Skull Base to Mid-thigh (09/01/2019 12:14 PM EDT) Anatomical Region Laterality Modality Positron Emission To mography (PET) Specimen (Source) Anatomical Location Collection Method / Collectio n Time Received Time / Laterality Volume Impressions 09/01/2019 4:03 PM EDT 1. ??No evidence of local recurrence or metastasis. 2. ??Stable small right pleural effusion . Preliminary report signed by: Shakeel giles at 09/01/2019 3:26 PM I have personally reviewed the image(s) and the residents interpretation and agree with the findings, Jimmy Gaona at 09/01/2019 4:03 PM Thank you for letting us participate in the care of this patient. For questions regarding this report, please contact [facility] number below. ? Electronically signed by: Jimmy Gaona [facility] ([phone]), at 09/01/2019 4:03 PM Narrative 09/01/2019 4:03 PM EDT EXAMINATION: [facility] PET CT SKULL BASE TO MID-THIGH CLINICAL HISTORY: f/u lung cancer TECHNIQUE: Following IV injection of 18- bjkhlv-4-uygiepbiique (FDG) a standard uptake of approximately 60 minutes, a no ncontrast CT scan followed by a PET scan were acquired from the base of the skull to mid thighs. The noncontrast CT was used for anatomic localization and photo n attenuation correction of the PET scan. Blood glucose level: 86 (mg/dL) FDG dose: 14.7 mCi COMPARISON: 04/21/2019 PET/CT FINDINGS: HEAD/NECK: Normal activity in all soft tissue regio ns of the neck and visualized lower head. No significant adenopathy. CHEST: Normal activity in all soft tissue regio ns. Stable small FDG avid right pleural effusion. Stable post treatment changes at the right lung base. Aortic and coronary artery calcifications again not ed. ABDOMEN/PELVIS: Normal activity in all soft tissue regio ns. No significant adenopathy. Vascular calcifications. SKELETON/EXTREMITIES: Normal activity in all regions of the ax ial and visualized appendicular skeleton. Procedure Note Jimmy Gaona MD - 09/01/2019Formatti ng of this note might be different from the original. EXAMINATION: [place] MALIK PET CT SKULL B ASE TO MID-THIGH CLINICAL HISTORY: f/u lung cancer TECHNIQUE: Following IV injection of 18- inakgy-3-akyrxqdsbzno (FDG) a standard uptake of approximately 60 minutes, a no ncontrast CT scan followed by a PET scan were acquired from the base of the skull to mid thighs. The noncontrast CT was used for anatomic localization and photo n attenuation correction of the PET scan. Blood glucose level: 86 (mg/dL) FDG dose: 14.7 mCi COMPARISON: 04/21/2019 PET/CT FINDINGS: HEAD/NECK: Normal activity in all soft tissue regio ns of the neck and visualized lower head. No significant adenopathy. CHEST: Normal activity in all soft tissue regio ns. Stable small FDG avid right pleural effusion. Stable post treatment changes at the right lung base. Aortic and coronary artery calcifications again not ed. ABDOMEN/PELVIS: Normal activity in all soft tissue regio ns. No significant adenopathy. Vascular calcifications. SKELETON/EXTREMITIES: Normal activity in all regions of the ax ial and visualized appendicular skeleton. IMPRESSION 1. No evidence of local recurrence or me tastasis. 2. Stable small right pleural effusion. Preliminary report signed by: Shakeel giles at 09/01/2019 3:26 PM I have personally reviewed the image(s) and the residents interpretation and agree with the findings, Jimmy Gaona at 09/01/2019 4:03 PM Thank you for letting us participate in the care of this patient. For questions regarding this report, please contact e number below. Electronically signed by: Jimmy Gaona [facility] ([phone]), at 09/01/2019 4:03 PM Jimmy Bajwa MD IMG PET ORDERABLES documented in this encounter Visit Diagnoses Diagnosis Malignant neoplasm of upper lobe of righ t lung Malignant neoplasm of upper lobe, bronch us or lung documented in this encounter Administered Medications Inactive Administered Medications - up to 3 most recent administrations Medication Order MAR Action Action Date Dose Rate Site fludeoxyglucose (F-18) FDG Given 09/01/2019 10:29 AM EDT 14.7 mC i injection 14.7 mCi 14.7 mCi, Intravenous, ONCE PRN, 1 dose, Starting on Wed09/01/19 at 1029, Until Wed09/01/19 at 1029, Per Protocol, Routine documented in this encounter Care Teams Vending Technician Relationship Specialty Start Date End Date Brianne Sin MD PCP - General Family Medicine 12/24/15 02/01/[address] [place] [address] [place] [id number] documented as of this encounter
--- OUTSIDE RECORDS SUMMARY | 2022-07-17 12:37 | XMS_ITS | Encounter Summary ---
:1940 [place] [address] Care Team Providers Name Role Phone Mari Jacob MD Primary Care Provider Encounter Details Date Type Department Care Team Description 02/26/2022 Ancillary Procedure Radiology Library at Jimmy Bajwa MD [facility] HEMATOLOGY/[place] [address] DEPT. [phone] [place], [place] [address] (Wo rk) Social History Tobacco Use Types [...] 10/02/2022 Office Visit Dermatology Ashok Xiong MD [address] [place] [address] DERMATOLOGY [place], [place] [address] (Wo rk) documented as of this encounter Procedures Procedure Name Priority Date/Time Associated Diagnosis Comme nts FILM LIBRARY Routine 02/26/2022 9:31 PM Results f or this STORAGE ONLY CT EDT procedure ar e in CHEST the results section. documented in this encounter Results Film Library- Storage Only CT Chest (02/26/2022 9:31 PM EDT) Specimen (Source) Anatomical Location Collection Method / Collectio n Time Received Time / Laterality Volume Narrative [facility] - 02/26/2022 9:31 PM EDT This exam is auto-finalizing. It's purpo se is for storage only. Jimmy Bajwa MD IMG FILM LIBRARY ORDERABLES Performing Organization Address City/State/ZIP Code Phon e Number RAD [place], [place] documented in this encounter Visit Diagnoses Not on filedocumented in this encounter Care Teams Scientific Aide Relationship Specialty Start Date End Date Mari Jacob MD PCP - General Family Medicine 02/02/[address] [place] [address] [place] [address] documented as of this encounter
--- OUTSIDE RECORDS SUMMARY | 2022-07-17 12:37 | XMS_ITS | Encounter Summary ---
:1940 Author Organization [facility] [place] [address] Care Team Providers Name Role Phone Brianne Sin MD Primary Care Provider Reason for Referral Diagnostic Test (Routine) - Closed Specialty Diagnoses / Procedures Referred By Contact Refer red To Contact Radiology Diagnoses Malignant neoplasm of upper lobe of right lung Jimmy Bajwa MD [facility] Rad Nuclear Med Procedures NM Malik PET CT Skull Base to Mid-thigh [facility] HEMATOLOGY/[place] [address] [place] [address] Referral ID Status Reason Start Date Expiration Date Visits V isits Requested Authorized [id number] Closed Specialty 02/29/2020 08/30/2021 1 1 Service Requested Encounter Details Date Type Department Care Team Description 02/29/2020 TH Visit Hematology/Oncology Jimmy Bajwa, Malign ant neoplasm of upper lobe of right lung; (TeleHealth) at [facility] Hypothyroidism due to drugs [address], [place] C[place] [address] HEMATOLOGY/ONCOL [phone] [facility] [place] [address] Social History Tobacco Use Types Packs/Day Years Used Date Former Smoker Cigarettes 11 30 Quit: 10/01/19 80 Smokeless Tobacco: Never Used Alcohol Use Standard Drinks/Week Comments No 0 (1 standard drink = 0.6 oz pure alcoho l) Sex Assigned at Date Recorded Not on file documented as of this encounter Progress Notes Jimmy Bajwa MD - 02/29/2020 2:30 PM EDT Subjective: Patient ID: Parveen Gamez [...] and pleural effusion PET scan 11/19 in [facility]: Improved Resume nivolumab in [facility] Return to [facility] 03/02/19 PET negative 04/21/19 Stop nivolumab for grade 3 colitis 05/19 The patient is normally followed in the [facility]. Because of the coronavirus outbreak weconverted his scheduled office visit to a telephone office visit. He consented to the telephone office visit. He had been receiving single agent nivolumab for his metastatic adenocarcinoma of the right lung. [place]pped it 05/19 due to grade 3 diarrhea. He did spend the winter in [place] and returned to the [facility] about 4 to 5 weeks ago. He has remained off of any immunotherapy or any other therapy for his lung cancer. His itching has resolved. His diarrhea has resolved. He is actually feeling pretty well. He did havea PET scan in the winter in [place]. Was told it was stable. I do not have a copy of that PET scan. He has had no other significant medical events. He is comfortable remaining off of therapy. Requesting another PET scan in April Patient Active Problem List Diagnosis Code ??? Seborrheic keratosis L82.1 ??? 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 [...] ??? Pcn [Penicillins] ??? Sulfa (Sulfonamide Antibiotics) Assessment and Plan: 79-year-old man with a long history of locally advanced/metastatic adenocarcinoma of the lung. He was initially treated with carboplatinum and Alimta and for his second line therapy he was treated withnivolumab. 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 He seems to be doing a lot better off of treatment. I think it is reasonable to continue monitoring him off of treatment. Intermittent PET scans seems reasonable given his metastatic burden of disease. We will plan to see him back towards the end of April with a repeat PET scan. If he has more problems I would be happy to see him sooner. 15 minutes in review of records and discussion with patient on phone documented in this encounter Plan of Treatment Upcoming Encounters Date Type Specialty Care Team Description 10/02/2022 Office Visit Dermatology Ashok Xiong MD [address] [facility] DERMATOLOGY [place], [place] [address] (Wo rk) documented as of this encounter Results NM Malik PET CT Skull Base to Mid-thigh (04/26/2020 9:46 AM EDT) Anatomical Region Laterality Modality Positron Emission To mography (PET) Specimen (Source) Anatomical Location Collection Method / Collectio n Time Received Time / Laterality Volume Impressions 04/26/2020 2:48 PM EDT 1. ??No evidence of recurrent or metastatic disease 2. ??Stable small right pleural effusion Preliminary report signed by: Chanelle kinney at 04/26/2020 2:46 PM I have personally reviewed the image(s) and the resident's interpretation and agree with the findings, Jean Carlos Junior at 04/26/2020 2:48 PM Thank you for letting us participate in the care of this patient. For questions regarding this report, please contact e number below. ? Electronically signed by: Domo Patel [facility] ([phone]), at 04/26/2020 2:48 PM Narrative 04/26/2020 2:48 PM EDT EXAMINATION: NM MALIK PET CT SKULL BASE TO MID-THIGH CLINICAL HISTORY: Non-small cell lung ca ncer, post treatment, no evidence of disease TECHNIQUE: Following IV injection of 18- irdsvy-0-akfrudsqtvui (FDG) a standard uptake of approximately 60 minutes, a no ncontrast CT scan followed by a PET scan were acquired from the base of the skull to mid thighs. The noncontrast CT was used for anatomic localization and photo n attenuation correction of the PET scan. Blood glucose level: 78 (mg/dL) FDG dose: 10.7 mCi COMPARISON: PET/CT 09/01/2019 FINDINGS: HEAD/NECK: Normal activity in all soft tissue regio ns of the neck and visualized lower head. Retention cyst within the right maxillar y sinus. No significant adenopathy. CHEST: Normal activity in all soft tissue regio ns. Stable appearance of small right pleural effusion. Coronary and aortic calcifications. ABDOMEN/PELVIS: Normal activity in all soft tissue regio ns. Subcutaneous air within the left abdomin al wall, likely from medication administration. No significant adenopath y. SKELETON/EXTREMITIES: Increased FDG avidity surrounding the ri ght shoulder consistent with osteoarthritis. Normal activity in all o ther regions of the axial and visualized appendicular skeleton. Procedure Note Jean Carlos Junior MD - 04/26/2020 EXAMINATION: [facility] PET CT SKULL B ASE TO MID-THIGH CLINICAL HISTORY: Non-small cell lung ca ncer, post treatment, no evidence of disease TECHNIQUE: Following IV injection of 18- zgpmce-6-vippkhjlnauo (FDG) a standard uptake of approximately 60 minutes, a no ncontrast CT scan followed by a PET scan were acquired from the base of the skull to mid thighs. The noncontrast CT was used for anatomic localization and photo n attenuation correction of the PET scan. Blood glucose level: 78 (mg/dL) FDG dose: 10.7 mCi COMPARISON: PET/CT 09/01/2019 FINDINGS: HEAD/NECK: Normal activity in all soft tissue regio ns of the neck and visualized lower head. Retention cyst within the right maxillar y sinus. No significant adenopathy. CHEST: Normal activity in all soft tissue regio ns. Stable appearance of small right pleural effusion. Coronary and aortic calcifications. ABDOMEN/PELVIS: Normal activity in all soft tissue regio ns. Subcutaneous air within the left abdomin al wall, likely from medication administration. No significant adenopath y. SKELETON/EXTREMITIES: Increased FDG avidity surrounding the ri ght shoulder consistent with osteoarthritis. Normal activity in all o ther regions of the axial and visualized appendicular skeleton. IMPRESSION 1. No evidence of recurrent or metastati c disease 2. Stable small right pleural effusion Preliminary report signed by: Chanelle kinney at 04/26/2020 2:46 PM I have personally reviewed the image(s) and the resident's interpretation and agree with the findings, Jean Carlos Junior at 04/26/2020 2:48 PM Thank you for letting us participate in the care of this patient. For questions regarding this report, please contact e number below. 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
--- OUTSIDE RECORDS SUMMARY | 2022-07-17 12:37 | XMS_ITS | Encounter Summary ---
:1940 Author Organization [facility] Address [place] [id number] Care Team Providers Name Role Phone Brianne Sin MD Primary Care Provider Reason for Referral Diagnostic Test (Routine) - Authorized Specialty Diagnoses / Procedures Referred By Contact Refer red To Contact Radiology Diagnoses Malignant neoplasm of upper lobe of right lung Jimmy Bajwa MD Procedures CT Chest w Contrast [facility] DR HEMATOLOGY/[place] [address] Referral ID Status Reason Start Expiration Visits Visits Date Date Requested Authorized [id number] Authorized Specialty 09/07/2021 03/07/2023 1 1 Service Requested Encounter Details Date Type Department Care Team Description 09/04/2021 Office Visit Hematology/Oncology Rowan Bajwa MD [facility] [address] HEMATOLOGY/[place] [address] Malignant neoplasm of upper lobe of righ t lung; at [facility] Shereen Bernabe APRN [address] [place] [address] [place] [address] Hypothyroidism due to drugs [address] [place] [phone] Social History Tobacco Use Types Packs/Day Years Used Date Former Smoker Cigarettes 11 30 Quit: 10/01/19 80 Smokeless Tobacco: Never Used Alcohol Use Standard Drinks/Week Comments No 0 (1 standard drink = 0.6 oz pure alcoho l) Sex Assigned at Date Recorded Not on file documented as of this encounter Last Filed Vital Signs Vital Sign Reading Time Taken Comments Blood Pressure 149/82 09/04/2021 10:00 AM EDT Pulse 56 09/04/2021 10:00 AM EDT Temperature 36.1 ??C (97 ??F) 09/04/2021 10:00 AM EDT Respiratory Rate 20 09/04/2021 10:00 AM EDT Oxygen Saturation 100% 09/04/2021 10:00 AM EDT Inhaled Oxygen Concentration - - Weight 72.5 kg (159 lb 12.8 oz) 09/04/2021 10:00 AM EDT Height 170.2 cm (5' 7.01) 09/04/2021 10:00 AM EDT Body Mass Index 25.02 09/04/2021 10:00 AM EDT documented in this encounter Progress Notes Jimmy Bajwa MD - 09/04/2021 10:00 AM EDT Subjective: Patient ID: Parveen Gamez is a 81 y.o. male. HPI Metastatic adenocarcinoma of the [...] and pleural effusion PET scan 11/19 in [place]: Improved Resume nivolumab in [place] Return to [facility] 03/02/19 Stop nivolumab for grade 3 colitis 05/19 PET negative 04/[address] stable 08/29/21 The patient returns to the [facility] in follow-up for his lung cancer. He has been off therapy since 05/19. He generally has continued to do quite well. He did spend the entire winter up here in [place] and thought it was particularly long. He is heading to [place] for the winter in the next week or so. He does have itching of his skin but no diarrhea. No new pulmonary symptoms. No fevers chills sweatsor weight loss. Patient Active Problem List Diagnosis Code ??? [...] suture removal Z48.02 Current Outpatient Medications: ??? amLODIPine (Norvasc) 10 mg Tablet, TAKE ONE TABLET BY MOUTH EVERY DAY, Disp: , Rfl: ??? metoprolol tartrate (Lopressor) 25 mg Tablet, TAKE ONE TABLET BY MOUTH TWICE A DAY NEEDED, Disp: , Rfl: ??? Eliquis 5 mg Tablet, , Disp: [...] daily as needed., Disp: , Rfl: ??? loperamide (IMODIUM A-D) 2 mg Tablet, Take 4 mg by mouth daily. Maximum 16 mg in 24 hours , Disp: , Rfl: Allergies Allergen Reactions ??? Pcn [Penicillins] ??? Sulfa (Sulfonamide Antibiotics) On Exam he is somewhat tearful but in no acute distress BP 149/82 (Patient Position: Sitting) Pulse 56 Temp 36.1 ??C (97 ??F) (Temporal) Resp 20 Ht 170.2 cm (5' 7.01) Wt 72.5 kg (159 lb 12.8 oz) SpO2 100% BMI 25.02 kg/m?? Sclera white Mucous membranes moist Alert and oriented Cardiac rate normal Respiratory effort nonlabored No peripheral edema No visible rash CT scan of the chest done at [facility], I reviewed the images personally, CT was dated 08/29/2021 Moderate right pleural effusion without significant change Right infrahilar mass and right lower lobe mass similar to prior study 7 mm nodular density left lower lobe Assessment and Plan: 81-year-old man with a history of locally [...] a repeat CT scan of the chest. If he has more problems he will let us know otherwise we will see him back in 6 months. documented in this encounter Plan of Treatment Upcoming Encounters Date Type Specialty Care Team Description 10/02/2022 Office Visit Dermatology Ashok Xiong MD [address] [facility] DERMATOLOGY [place], [place] [address] (Wo rk) Scheduled Orders Name Type Priority Associated Diagnoses Order S chedule CBC (with Diff) Lab STAT Malignant neoplasm of As Needed for 4 upper lobe of right lung Occ urrences starting 09/07/2021 unti l 09/07/2022 Comprehensive metabolic Lab STAT Malignant neoplas m of As Needed for 4 panel (non-fasting) upper lobe of right l rhianna Occurrences starting 09/07/2021 unti l 09/07/2022 TSH Lab STAT Hypothyroidism due to As Nee ded for 4 drugs Occurrences sta rting 09/07/2021 unti l 09/07/2022 CT Chest w Contrast Imaging Routine Malignant neoplasm of Expected: 03/07/2022, upper lobe of right lung Exp ires: 09/06/2022 documented as of this encounter Visit Diagnoses Diagnosis Malignant neoplasm of upper lobe of righ t lung Malignant neoplasm of upper lobe, bronch us or lung 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
--- OUTSIDE RECORDS SUMMARY | 2022-07-17 12:37 | XMS_ITS | Encounter Summary ---
:1940 [place] [address] Care Team Providers Name Role Phone Brianne Sin MD Primary Care Provider Encounter Details Date Type Department Care Team Description 08/26/2020 [facility]illary [facility] [address] [place] [address] [place], [place] [phone] (Wo rk) Social History Tobacco Use Types [...] 10/02/2022 Office Visit Dermatology Ashok Xiong MD [address] [place] [address] DERMATOLOGY [place], [place] [address] (Wo rk) documented as of this encounter Procedures Procedure Name Priority Date/Time Associated Diagnosis Comme nts FILM LIBRARY Routine 08/26/2020 12:00 AM Results for this STORAGE ONLY CT EDT procedure ar e in CHEST the results section. documented in this encounter Results Film Library- Storage Only CT Chest (08/26/2020 12:00 AM EDT) Specimen (Source) Anatomical Location Collection Method / Collectio n Time Received Time / Laterality Volume Narrative RAD - 09/06/2020 1:12 PM EST This exam is auto-finalizing. It's purpo se is for storage only. Brianne Sin MD IMG FILM LIBRARY ORDERABLES Performing Organization Address City/State/ZIP Code Phon e Number [place], [place] documented in this encounter Visit Diagnoses Not on filedocumented in this encounter Care Teams Email Deployment Specialist Relationship Specialty Start Date End Date Brianne Sin MD PCP - General Family Medicine 12/24/15 02/01/[address] [place] [address] [place] [phone] documented as of this encounter
--- OUTSIDE RECORDS SUMMARY | 2022-07-17 12:37 | XMS_ITS | Encounter Summary ---
:1940 Author Organization [facility] [place] [address] Care Team Providers Name Role Phone Brianne Sin MD Primary Care Provider Encounter Details Date Type Department Care Team Description 05/09/2020 Office Visit Hematology/Oncology Rowan Bajwa MD Malignant neoplasm of upper lobe of righ t lung; at [facility] due to drugs [address] [place] [address] [place], [place] HEMATOLOGY/[place] [address] [place] DEPT. [phone] [place], [place] [address] Social History Tobacco Use Types [...] Sign Reading Time Taken Comments Blood Pressure 151/63 05/09/2020 9:05 AM EDT Pulse 66 05/09/2020 9:05 AM EDT Temperature 36.4 ??C (97.6 ??F) 05/09/2020 9:05 AM EDT Respiratory Rate 16 05/09/2020 9:05 AM EDT Oxygen Saturation 100% 05/09/2020 9:05 AM EDT Inhaled Oxygen Concentration - - Weight 66.4 kg (146 lb 6.4 oz) 05/09/2020 9:05 AM EDT Height 173 cm (5' 8.11) 05/09/2020 9:05 AM EDT copied Body Mass Index 22.19 05/09/2020 9:05 AM EDT documented in this encounter Progress Notes Jimmy Bajwa MD - 05/09/2020 9:00 AM EDT Subjective: Patient ID: Parveen Gamez [...] Improved Resume nivolumab in [place] Return to [facility] 03/02/19 Stop nivolumab for grade 3 colitis 05/19 PET negative 04/20 The patient returns to the [facility] in follow-up for his lung cancer. He has been off therapy for the last year. Unfortunately his in her sleep about 10 days ago. He still pretty sad about that. He does not have any medical symptoms. His colitis has resolved and he is not been on any prednisonefor the last 7 months. No new shortness of breath or symptoms of his lung cancer. Patient Active Problem List Diagnosis Code ??? [...] suture removal Z48.02 Current Outpatient Medications: ??? omeprazole (PRILOSEC) 10 mg Capsule, Delayed Release(E.C.), Take 40 mg by mouth daily., Disp: , Rfl: ??? gabapentin (NEURONTIN) 300 mg Capsule, Take 900 mg by mouth nightly. occ takes 900 mg prn in [...] with Pulmonary Embolism, Disp: , Rfl: ??? predniSONE (DELTASONE) 20 mg Tablet, Take 60 mg daily x 2 weeks then taper as directed (Patient not taking: Reported on 05/09/2020), Disp: 90 tablet, Rfl: 3 ??? loperamide (IMODIUM A-D) 2 mg Tablet, Take 4 mg by mouth daily. Maximum 16 mg in 24 hours , Disp: , Rfl: ??? METOPROLOL SUCCINATE ORAL, Take 25 mg by mouth daily as needed., Disp: , Rfl: Allergies Allergen Reactions ??? Pcn [Penicillins] ??? Sulfa (Sulfonamide Antibiotics) On Exam he is somewhat tearful but in no acute distress BP 151/63 (Patient Position: Sitting) Pulse 66 Temp 36.4 ??C (97.6 ??F) (Temporal) Resp 16 Ht 173 cm (5' 8.11) Comment: copied Wt 66.4 kg (146 lb 6.4 oz) SpO2 100% BMI 22.19 kg/m?? Sclera white Mucous membranes moist Alert and oriented Cardiac rate normal Respiratory effort nonlabored No peripheral edema No visible rash Laboratory results White count 4.3, hemoglobin 13.8, platelets 219 Creatinine 1.3, TSH 4.6 PET scan, I reviewed the images personally: CLINICAL HISTORY: Non-small cell lung cancer, post treatment, no evidence of disease ?? TECHNIQUE: Following IV injection of 63-cstmko-6-deoxyglucose (FDG) a standard uptake of approximately 60 minutes, a noncontrast CT scan followed by a PET scan were acquired from the base of the skull to mid thighs. The noncontrast CT was used for anatomic localization and photon attenuation correction of the PET scan. ?? Blood glucose level: 78 (mg/dL) ?? FDG dose: 10.7 mCi ?? COMPARISON: PET/CT 09/01/2019 ?? FINDINGS: ?? HEAD/NECK: Normal activity in all soft tissue regions of the neck and visualized lower head. ?? Retention cyst within the right maxillary sinus. No significant adenopathy. ?? CHEST: Normal activity in all soft tissue regions. ?? Stable appearance of small right pleural effusion. Coronary and aortic calcifications. ?? ABDOMEN/PELVIS: Normal activity in all soft tissue regions. ?? Subcutaneous air within the left abdominal wall, likely from medication administration. No significant adenopathy. ?? SKELETON/EXTREMITIES: Increased FDG avidity surrounding the right shoulder consistent with osteoarthritis. Normal activity in all other regions of the axial and visualized appendicular skeleton. ?? IMPRESSION 1. No evidence of recurrent or metastatic disease 2. Stable small right pleural effusion ?? Preliminary report signed by: Chanelle Miller at 04/26/2020 2:46 PM ?? I have personally reviewed the image(s) and the resident's interpretation and agree with the findings, Jean Carlos Junior at 04/26/2020 2:48 PM ?? Thank you for letting us participate in the care of this patient. For questions regarding this report, please contact the number below. Electronically signed by: Jean Carlos Junior [facility] ([phone]), at 04/26/2020 2:48 PM Assessment and Plan: 79-year-old man with a long history of locally advanced/metastatic adenocarcinoma of the lung. He was initially treated with carboplatinum and Alimta and for his second line therapy he was treated withnivolumab. 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 He seems to be doing a lot better off of treatment. Current PET scan shows he remains in remission with no signs of active cancer and really no significant residual toxicity of treatment. He has really only had disease in the thorax so I am going to convert his imaging back to a CT of the chest. I would like to see him back in about 4 months with a laboratory studies and CT of the chestwith contrast. After that we may convert him to 6-month visits depending on his symptom complex. If he has more problems he will let us know otherwise we will see him back in about 4 months. 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
--- OUTSIDE RECORDS SUMMARY | 2022-07-17 12:37 | XMS_ITS | Encounter Summary ---
:1940 [place] [address] Care Team Providers Name Role Phone Brianne Sin MD Primary Care Provider Encounter Details Date Type Department Care Team Description 02/24/2021 Ancillary Procedure Radiology Library at Jimmy Bajwa MD [facility] HEMATOLOGY/[place] [address] DEPT. [phone] [place], [place] [address] (Wo rk) Social History Tobacco [...] 10/02/2022 Office Visit Dermatology Ashok Xiong MD [address] [place] [address] DERMATOLOGY [place], [place] [address] (Wo rk) documented as of this encounter Procedures Procedure Name Priority Date/Time Associated Diagnosis Comme nts FILM LIBRARY Routine 02/24/2021 12:00 AM Results for this STORAGE ONLY CT EDT procedure ar e in CHEST the results section. documented in this encounter Results Film Library- Storage Only CT Chest (02/24/2021 12:00 AM EDT) Specimen (Source) Anatomical Location Collection Method / Collectio n Time Received Time / Laterality Volume Narrative [facility] - 03/06/2021 12:55 PM EDT This exam is auto-finalizing. It's purpo se is for storage only. Jimmy Bajwa MD IMG FILM LIBRARY ORDERABLES Performing Organization Address City/State/ZIP Code Phon e Number [facility] [place], [place] documented in this encounter Visit Diagnoses Not on filedocumented in this encounter Care Teams Property Inspector Relationship Specialty Start Date End Date Brianne Sin MD PCP - General Family Medicine 12/24/15 02/01/[address] [place] [address] [place] [phone] documented as of this encounter
--- OUTSIDE RECORDS SUMMARY | 2022-07-17 12:37 | XMS_ITS | Encounter Summary ---
:1940 Author Organization Department [facility] Address [address] [place] [address] Support Name Relationship Address Phone BLAS CASTRO Unavailable [phone] [facility] [place] [address] THEA CASTRO Unavailable [address] [place] [place] [address] Insurance Providers: All historical and current Section [...] [place] PREFERRED STAND Jun 01, [id number] [phone] CHERIE PERN,A PATIENT (FEDERAL) PROVIDER MACY 2006 70 7 RNOLD ORGANIZAT FAMIL ION (PPO) Y 105 BCBS OF PREFERRED STAND Nov 01, [id number] HALPER N,A PATIENT MASS FEP PROVIDER MACY 2004 70 6 RNOLD ORGANIZAT FAMIL ION (PPO) Y BCBS OF DENTAL STAND Nov 01, DENTAL [id number] MATTHEW,A PATIENT MASS FEP INSURANCE MACY 2004 70 6 RNOLD DENTAL BC[place] OF [place] PREFERRED STAND Nov 01, 104 [id number] [phone] CHERIE PERN,A PATIENT FEDERAL PROVIDER MACY 2020 70 4 RNOLD ORGANIZAT SELF ION (PPO) BCBS OF [place] PREFERRED STAND Nov 01, 105 [id number] [phone] CHERIE PERN,A PATIENT FEDERAL PROVIDER MACY 2004 70 4 RNOLD ORGANIZAT FAMIL ION (PPO) Y [place] PRESCRIPT FEP Nov 02, [id number] [phone] HALP GURJIT,A PATIENT ([id number]) ION 2011 0 70 7 RNOLD [place] PRESCRIPT CAREM Nov 01, [id number] [phone] HALP GURJIT,A PATIENT FEP BCBS ION ARK 2011 0 70 1 RNOLD FEPRX PLAN [place]-F PRESCRIPT BCBS Nov 01, [id number] [phone] QUIÑONES LPERN,A PATIENT EP BCBS ION FEP 2011 0 [id number] RNOLD PLAN MEDICARE MEDICARE PART Jun 01, PART A [id number] [id number] HALPER N,A PATIENT (WNR) (M) A 2006 38A 2 RNOLD MEDICARE MEDICARE PART Jun 01, PART B [id number] [id number] HALPER N,A PATIENT (WNR) (M) B 2006 38A 2 RNOLD MEDICARE MEDICARE PART Jun 01, PART A [id number] [id number] HALPER N,A PATIENT (WNR) (M) A 2006 XF33 2 RNOLD MEDICARE MEDICARE PART Jun 01, PART B [id number] HALPER N,A PATIENT (WNR) (M) B 2006 XF33 2 RNOLD MEDICARE MEDICARE PART Jun 01, PART A [id number] HALPER N,A PATIENT (WNR) (M) A 2006 XF33 2 RNOLD MEDICARE MEDICARE PART Jun 01, PART B [id number] HALPER N,A PATIENT (WNR) (M) B 2006 XF33 2 RNOLD MEDICARE MEDICARE PART Jun 01, PART A [id number] [id number] HALPER N,A PATIENT (WNR) (M) A 2006 38A 00 RNOLD MEDICARE MEDICARE PART Jun 01, PART B [id number] HALPER N,A PATIENT (WNR) (M) B 2006 38A 00 RNOLD MEDICARE MEDICARE PART Jun 01, PART A [id number] [id number] HALPER N,A PATIENT (WNR) (M) A 2006 [id number] 00 RNOLD MEDICARE MEDICARE PART Jun 01, PART B [id number] [id number] HALPER N,A PATIENT (WNR) (M) B 2006 [id number] RNOLD Selected Encounter This section includes the information on record at [facility] for the Encounter. Date/Time Encounter Type Encounter Reason Provider Source Description Jul 14, 2022 Outpatient TELEPHONE/REHAB ICD-10-CM Z71.89 STAN LEIJA 01:25 PM Encounter AND SUPPORT Other specified counseling with Provider Comments: Other specified Counseling IHE Encounter Template Text not used by [facility] Assessments - Encounter Diagnoses This section includes the primary and secondary diagnoses documented for the Encounter. Date/Time Primary/Secondary Diagnosis Name Provider Source Diagnosis Jul 14, 2022 PRIMARY Other specified STAN LEIJA 01:25 PM counseling [facility] Plan of Treatment: Future Appointments (+ 6 [...] 24, 2022 11:00 AM [facility] Sep 04, 2022 03:00 PM AMBULATORY - SURGERY [facility] Active, Pending, and Scheduled Orders This section [...] 2022 09:27 AM Consult Order OPHTHALMOLOGY [facility] ([facility]) [place] [facility] Cons Utility Driver's Choice Lab Results: +/- 30 days of [...] Interpretation Reference Range Comment 2022 09:29 AM [facility] PSA (LINEN FOLDER) Specime n Type: SERUM Comment: Testin g Performed on Mena [employer] Deposit Box Rental Clerk (405) [id number] Ordering Provid er: CHRISTOPHER CARCAMO Report Released Date/Time: 2022 09:27 AM Reporting Lab: [facility] [address] [facility] [address] Performing Lab: [facility] [address] [facility] [address] PSA (LINEN FOLDER) 1.37 0-4.0 2022 09:29 [facility] P4 GLU,BUN,CREAT,LYTES,CA Specimen Type: PLASMA AM Comment: Tests performed on [employer]ena [employer] Deposit Box Rental Clerk (405) [id number] Ordering Provid er: CHRISTOPHER CARCAMO Report Released Date/Time: 2022 09:27 AM Reporting Lab: [facility] [address] [facility] [address] Performing Lab: [facility] [address] [facility] [address] UREA NITROGEN 26 H 7-25 SODIUM 138 135-145 POTASSIUM 4.6 3.5-5.0 CHLORIDE 103 100-110 CARBON DIOXIDE 29 20-30 ANION GAP 6 4-16 GLUCOSE 95 65-100 CREATININE 1.46 0.5-1.5 CALCIUM 9.4 8.5-10.5 eGFR(CKD-EPI 2020) 48 L >60 2022 09:29 AM [facility] CBC PROFILE Specime n Type: BLOOD No comment enter ed. Ordering Provid er: CHRISTOPHER CARCAMO Report Released Date/Time: 2022 09:27 AM Reporting Lab: [facility] [address] [facility] [address] Performing Lab: [facility] [address] [facility] [address] WBC 4.4 L 4.5-11.0 RBC 4.90 4.23-5.66 [...] 15 YRS OR MORE [place] [facility] Tobacco Use History This section includes a history of the smoking, or tobacco- related health factors, that were collected on or before the date of the Encounter. The data comes from the [facility] facility where the Encounter took place. Date/Time Smoking Status/Tobacco Use Comment [facility] May 28, 2020 02:23 PM VA-TOBACCO QUIT 15 YRS OR [place] MORE [facility] Dec 29, 2018 03:56 PM VA-TOBACCO FORMER USER [place] [facility] Dec 29, 2018 03:56 PM VA-TOBACCO QUIT 5 TO < 15 [place] YRS [facility] Sep 04, 2015 08:54 PM QUIT TOBACCO USE > 7 YEARS [place] A[place] [facility] Jul 31, 2005 02:57 PM HISTORY OF SMOKING [place]. quit 25 years ago. [facility] Jul 30, 2004 02:24 PM HISTORY OF SMOKING [place]. quit about 30 years ago. [facility]] Jan 16, 2004 09:21 AM QUIT TOBACCO USE > 7 YEARS [place] AGO 30 years ago [facility] Jun 20, 2003 01:47 PM HISTORY OF SMOKING [place]. quit 25 years ago. [facility] Jun 08, 2002 02:23 PM H[place] OF [place]MOKING [place] [facility] Jun 09, 2001 05:10 PM H[place] OF SMOKING [place] [facility] Encounter Notes: All associated encounter notes This section contains the clinical notes associated to the Encounter. Date/Time Encounter Note(s) Provider Source Jul 14, 2022 01:25 PM AUDIOLOGY TELEPHONE ENCOUNTER NOTE: STAN ELIJA [place] LOCAL TITLE: Telephone Note/Audiology [facility] STANDARD TITLE: AUDIOLOGY TELEPHONE ENCOUNTER NO TE DATE OF NOTE: JUL 14, 2022@13:25 ENTRY DATE: JUL 14, 2022@13:26:02 AUTHOR: STAN LEIJA EXP COSIGNER: URGENCY: STATUS: COMPLETED Reason for call: Per has adm in note on 07/14/22, patient called and was wondering if his new hearing aids could be mailed to him. Called and reached . Told that we can not mail them their set of hearing aids to them. They would need to come in for a fitting appointment. Since has to drive a 200 mile commute round trip to get to [place], offered the [facility] for a fitting . The agreed. Told that I would send his [facility]. When [facility] received the aids, they will reac h out to him to schedule the fitting appointment. The serg jones prefers to be called on his cell [phone]. The was agreable with the plan and was t hankful for the call. Plan: 1.) Send 's aids to the [facility] vi a sign language instructor. 2.) When the aids arrive at [place], the veter an needs to be contacted to schedule a fitting appointment. /iyv/ STAN LEIJA Audiology [facility] Software Tools Build Engineer Signed: 07/14/2022 13:31 Receipt Acknowledged By: * AWAITING SIGNATURE * MARELY REYNOSO * AWAITING SIGNATURE * NOEMÍ ZHANG * AWAITING SIGNATURE * DAVID REED
--- OUTSIDE RECORDS SUMMARY | 2022-07-17 12:37 | XMS_ITS | Encounter Summary ---
:1940 Author Organization [facility] [place] [address] Care Team Providers Name Role Phone Brianne Sin MD Primary Care Provider Reason for Referral Diagnostic Test (Routine) - Closed Specialty Diagnoses / Procedures Referred By Contact Refer red To Contact Radiology Diagnoses Malignant neoplasm of upper lobe of right lung Jimmy Bajwa MD [facility] Rad Nuclear Med Procedures [place] PET CT Skull Base to Mid-thigh [facility] HEMATOLOGY/[place] [address] [place] [address] Referral ID Status Reason Start Date Expiration Date Visits V isits Requested Authorized [id number] Closed Specialty 02/29/2020 08/30/2021 1 1 Service Requested Reason for Visit Diagnostic Test (Routine) - Closed Specialty Diagnoses / Procedures Referred By Contact Refer red To Contact Radiology Diagnoses Malignant neoplasm of upper lobe of right lung Jimmy Bajwa MD [facility] Rad Nuclear Med Procedures [place] PET CT Skull Base to Mid-thigh [facility] HEMATOLOGY/[place] [address] [place] [address] Referral ID Status Reason Start Date Expiration Date Visits V isits Requested Authorized [id number] Closed Specialty 02/29/2020 08/30/2021 1 1 Service Requested Encounter Details Date Type Department Care Team Description 04/26/2020 Hospital Encounter Nuclear Medicine at Jimmy Bajwa, Malignant neoplasm Jenny Landaverde MD of upper lobe of [facility] [address] [place] HEMATOLOGY/ONCOL [address] [facility] DEPT. [phone] [place] [address] Social History Tobacco Use Types Packs/Day Years [...] 10/02/2022 Office Visit Dermatology Ashok Xiong MD [address] [place] [address] RD DERMATOLOGY [place], [place] [address] (Wo rk) documented as of this encounter Procedures Procedure Name Priority Date/Time Associated Diagnosis Comme nts [place]IK PET CT Routine 04/26/2020 9:46 AM Malignant neopl asm Results for this SKULL BASE TO EDT [...] report, please contact e number below. ? Narrative 04/26/2020 2:48 PM EDT EXAMINATION: [facility] PET CT SKULL BASE TO MID-THIGH CLINICAL HISTORY: Non-small cell lung ca ncer, post treatment, no evidence of disease TECHNIQUE: Following IV injection of 18- fhfyis-4-siomrhmxkieu (FDG) a standard uptake of approximately 60 [...] Jean Carlos Junior MD - 04/26/2020 EXAMINATION: [facility] PET CT SKULL B ASE TO MID-THIGH CLINICAL HISTORY: Non-small cell lung ca ncer, post treatment, no evidence of disease TECHNIQUE: Following IV injection of 18- cgrgay-1-hfoqcvfpcyrp (FDG) a standard uptake of approximately 60 [...] this report, please contact e number below. Jimmy Bajwa MD IMG PET ORDERABLES documented in this encounter Visit Diagnoses Diagnosis Malignant neoplasm of upper lobe of righ t lung Malignant neoplasm of upper lobe, bronch us or lung documented in this encounter Administered Medications Inactive Administered Medications - up to 3 most recent administrations Medication Order MAR Action Action Date Dose Rate Site fludeoxyglucose (F-18) FDG Given 04/26/2020 8:00 AM EDT 10.7 mCi injection 10.7 mCi 10.7 mCi, Intravenous, ONCE PRN, 1 dose, Starting on Wed04/26/20 at 0800, Until Wed04/26/20 at 0800, Per Protocol, Routine documented in this encounter Care Teams Soloist Dancer Relationship Specialty Start Date End Date Brianne Sin MD PCP - General Family Medicine 12/24/15 02/01/[address] [place] [address] [place] [phone] documented as of this encounter
--- OUTSIDE RECORDS SUMMARY | 2022-07-17 12:37 | XMS_ITS | Encounter Summary ---
:1940 Author Organization [facility] [place] [address] Care Team Providers Name Role Phone Mari Jacob MD Primary Care Provider Reason for Visit Reason Comments Follow-up Encounter Details Date Type Department Care Team Description 02/02/2022 Office Visit Dermatology at [facility] X[facility]g, Seborrh eic keratosis; Terri JANE Pruritus [address] [facility] Clinton B DERMATOLOGY [place], [place] [id number] [phone] Social History Tobacco Use Types Packs/Day Years Used Date Former Smoker Cigarettes 11 30 Quit: 10/01/19 80 Smokeless Tobacco: Never Used Alcohol Use Standard Drinks/Week Comments No 0 (1 standard drink = 0.6 oz pure alcoho l) Sex Assigned at Date Recorded Not on file documented as of this encounter Progress Notes Ashok Xiong MD - 02/02/2022 8:30 AM EDT Problem: 1. ??Follow-up pruritus, status post Kenalog injection, 2-month check. 2. ??History of multiple seborrheic keratoses 3. ??History of generalized pruritus associated with his ongoing oncologic therapy 4. ??History of past actinic keratosis, treated with liquid nitrogen and also with 5-FU in the past at the [facility] Som follows up for 2-month check. He is seeing some improvement decrease in his itching. The itching is persistent during the day but when he is distracted he does not notice it. It bothers him the most at night. He wonders if he can have another shot. The Kenalog injection gave him a month free of pruritus. He has had about 8 narrowband UVB treatments to date. 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 He has a few papules also on his back. His numerous seborrheic keratoses on his back. His skin is mildly xerotic. Assessment and plan: Pruritus, generalized 1. Patient with interval improvement, no itching in legs 2. Continue gabapentin as per PCP 3. Today refused Kenalog injection but instead patient given prescription for triamcinolone 0.1% cream to apply twice daily to affected areas dispense 1 pound jar were called into [facility] in [place] with 1 refill 4. Continue narrowband UVB return to clinic in 2 months for repeat check CC: Mari Jacob MD documented in this encounter Plan of Treatment Upcoming Encounters Date Type Specialty Care Team Description 10/02/2022 Office Visit Dermatology Ashok Xiong MD [address] [facility] DERMATOLOGY [place], [place] [address] (Wo rk) documented as of this encounter Visit Diagnoses Diagnosis Seborrheic keratosis Other seborrheic keratosis Pruritus Unspecified pruritic disorder documented in this encounter Care Teams Product Support Rep Relationship Specialty Start Date End Date Mari Jacob MD PCP - General Family Medicine 02/02/[address] [place] [address] [place] [address] documented as of this encounter
--- OUTSIDE RECORDS SUMMARY | 2022-07-17 12:37 | XMS_ITS | Encounter Summary ---
:1940 Author Organization [place] [address] Care Team Providers Name Role Phone Brianne Sin MD Primary Care Provider Encounter Details Date Type Department Care Team Description 09/05/2020 Office Visit Hematology/Oncology Rowan Bajwa MD Malignant neoplasm of upper lobe of righ t lung; at [facility] due to drugs [address] [place] [address] [place], [place] HEMATOLOGY/[place] [id number] [place] DEPT. [phone] [place], [place] [address] Social History Tobacco Use Types Packs/Day Years Used Date Former Smoker Cigarettes 30 Quit: 10/01/19 80 Smokeless Tobacco: Never Used Alcohol Use Standard Drinks/Week Comments No 0 (1 standard drink = 0.6 oz pure alcoho l) Sex Assigned at Date Recorded Not on file documented as of this encounter Last Filed Vital Signs Vital Sign Reading Time Taken Comments Blood Pressure 145/87 09/05/2020 12:51 PM EST Pulse 67 09/05/2020 12:51 PM EST Temperature 37.1 ??C (98.8 ??F) 09/05/2020 12:51 PM EST Respiratory Rate 20 09/05/2020 12:51 PM EST Oxygen Saturation 100% 09/05/2020 12:51 PM EST Inhaled Oxygen Concentration - - Weight 71.9 kg (158 lb 9.6 oz) 09/05/2020 12:51 PM EST Height 170.2 cm (5' 7) 09/05/2020 12:51 PM EST Body Mass Index 24.84 09/05/2020 12:51 PM EST documented in this encounter Progress Notes Jimmy Bajwa MD - 09/05/2020 1:00 PM EST Subjective: Patient ID: Parveen Gamez is [...] and pleural effusion PET scan 11/19 in [place]: Improved Resume nivolumab in [facility] Return to [facility] 03/02/19 Stop nivolumab for grade 3 colitis 05/19 PET negative 04/20 The patient returns to the [facility] in follow-up for his lung cancer. He has been off therapy for the last year. Also off prednisone. Recent changes include eliquis. Colonoscopy in [place] by report. He feels well. He has no respiratory complaints. Diarrhea has completely resolved. He still gets itchy skin. He did sell his house down in [place] after his . Planning to be up here for the winter months. Patient Active Problem List Diagnosis Code ??? [...] tearful but in no acute distress BP 145/87 (Patient Position: Sitting) Pulse 67 Temp 37.1 ??C (98.8 ??F) (Temporal) Resp 20 Ht 170.2 cm (5' 7) Wt 71.9 kg (158 lb 9.6 oz) SpO2 100% BMI 24.84 kg/m?? Sclera white Mucous membranes moist Alert and oriented Cardiac rate normal Respiratory effort nonlabored No peripheral edema No visible rash Laboratory results White count 4.9, hemoglobin 14, platelets 175 Creatinine 1.[address] of the chest done at weeks Images have not been pushed Report mentions a right basilar mass about 5 cm. They compared that to his CT scan from 2018 but hismost recent PET scan mass appears stable. Assessment and Plan: 80-year-old man with a history of locally advanced/metastatic adenocarcinoma of the lung. He was initially treated with carboplatinum and Alimta and for his second line therapy he was treated with nivolumab. 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 He seems to be doing a lot better off of treatment. I am awaiting the images his CT scan of the chest but clinically he is doing quite well and his labslook good. Since it appears his CT is stable I will plan to follow-up in [address] imaging. Thepatient will let us know if he is having increasing symptoms which may prompt imaging sooner. Patient is in agreement with the plan. Addendum We did get the CT report from 08/26. Unfortunately the radiologist compared that scan with a CT scanfrom 2018. Once the images were available to review I compared the current CT images to his PET CT images from 04/26/2020. No significant change in the lung mass. We will continue observation. 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
--- OUTSIDE RECORDS SUMMARY | 2022-07-17 12:37 | XMS_ITS | Encounter Summary ---
:1940 Author Organization [facility] [place] [address] Care Team Providers Name Role Phone Brianne Sin MD Primary Care Provider Reason for Visit Reason Comments Skin Check Encounter Details Date Type Department Care Team Description 08/26/2021 Office Visit Dermatology at [facility] Xiong, Seborrh eic keratosis; Terri JANE Pruritus [address] [facility] Clinton B DERMATOLOGY [place], [place] [id number] [phone] Social History Tobacco Use Types Packs/Day Years Used Date Former Smoker Cigarettes 1 30 Quit: 10/01/19 80 Smokeless Tobacco: Never Used Alcohol Use Standard Drinks/Week Comments No 0 (1 standard drink = 0.6 oz pure alcoho l) Sex Assigned at Date Recorded Not on file documented as of this encounter Progress Notes Ashok Xiong MD - 08/26/2021 2:15 PM EDT Problem: 1. ??Yearly skin checkup 2. ??History of multiple seborrheic keratoses 3. ??History of generalized pruritus associated with his ongoing oncologic therapy 4. ??History of past actinic keratosis, treated with liquid nitrogen and also with 5-FU in the past at the [facility] Parveen follows up for a repeat check. He is still bothered by the itching. It moves about from placeto place on his torso and arms. Sometimes the gabapentin works in somebody does not. He takes various doses of it. Theoretically he takes 900 mg 3 times a day but some days he may take more. He could not tolerate doxepin and hydroxyzine did not help. Nonsedating antihistamines have also not been effective. CeraVe and triamcinolone 0.1% cream with not been effective. At one point Kenalog injections did help, but another time ostensibly the same dosing given to him I am at [facility] was not beneficial. He continues to enjoy a prolonged remission from his lung cancer has been off of Opdivo now for 4 years. Physical examination reveals a pleasant 81-year-old gentleman with a benign examination of the head and neck the chest the back the hands the arms the forearms. He has a number of excoriations on the chest and back and patchy areas of erythema. He does not have classic Grovers disease. He has diffuse xerosis cutis. He has number of irritated seborrheic keratoses. Assessment plan: Benign skin examination 1. Patient reassured about his benign skin examination 2. To the clinic in a year for repeat check. Generalized pruritus 1. Continue gabapentin per his PCP. 2. Discussed option of Kenalog injection with patient today declines 3. He requests triamcinolone 0.5% cream and smaller tube sizes 30 g given with 5 refills that he canfill and take with him to [place] 4. Also recommend he try Sarna lotion obtain [id number] and apply to itchy areas as needed. CC: Brianne Sin MD documented in this encounter Plan of Treatment Upcoming Encounters Date Type Specialty Care Team Description 10/02/2022 Office Visit Dermatology Ashok Xiong MD [address] [facility] DERMATOLOGY [place], [place] [address] (Wo rk) documented as of this encounter Visit Diagnoses Diagnosis Seborrheic keratosis Other seborrheic keratosis Pruritus Unspecified pruritic disorder documented in this encounter Care Teams Medical Center Manager Relationship Specialty Start Date End Date Brianne Sin MD PCP - General Family Medicine 12/24/15 02/01/[address] [place] [address] [place] [phone] documented as of this encounter
--- OUTSIDE RECORDS SUMMARY | 2022-07-17 12:37 | XMS_ITS | Encounter Summary ---
:1940 Author Organization [facility] [place] [address] Care Team Providers Name Role Phone Mari Jacob MD Primary Care Provider Reason for Visit Reason Comments Follow-up Encounter Details Date Type Department Care Team Description 06/26/2022 Office Visit Dermatology at [facility] Xiong, Seborrh eic keratosis; Terri JANE Pruritus [address] [facility] Clinton B DERMATOLOGY [place], [place] [phone] Social History Tobacco Use Types Packs/Day Years Used Date Former Smoker Cigarettes 11 30 Quit: 10/01/19 80 Smokeless Tobacco: Never Used Alcohol Use Standard Drinks/Week Comments No 0 (1 standard drink = 0.6 oz pure alcoho l) Sex Assigned at Date Recorded Not on file documented as of this encounter Progress Notes Ashok iXong MD - 06/26/2022 8:30 AM EDT Problem: 1. ??Follow-up pruritus, 1 -month check, s/p 25 narrowband UVB phototherapy sessions at [facility] 2. ??History of multiple seborrheic keratoses 3. ??History of generalized pruritus associated with his ongoing oncologic therapy 4. ??History of past actinic keratosis, treated with liquid nitrogen and also with 5-FU in the past at the [facility] Som follows up for a 3-month check on his pruritus. We have been treating this with narrowband UVBand with gabapentin. We had tapered his UVB down to once treatment every 2 weeks. He is hardly having to use he states any gabapentin as the photo therapy is working very well for him. He would like to continue the currentfrequency of once every 2 weeks. Physical examination reveals a pleasant 82-year-old gentleman who is doing very well he states. He has no excoriations. He has a benign examination chest and back without dermatitis. Assessment plan: Generalized pruritus 1. Well-controlled with current therapy 2. Continue current frequency of narrowband UVB once every 2 weeks 3. Continue gabapentin as needed taking up to 900 mg up to 3 times a day as needed. He is only infrequently taking it now. 4. Return to clinic in 3 months for repeat check Seborrheic keratoses back 1. We will re evaluate these in 3 months CC: Mari Jacob MD documented in this encounter Plan of Treatment Upcoming Encounters Date Type Specialty Care Team Description 10/02/2022 Office Visit Dermatology Ashok Xiong MD [address] [place] [address] DERMATOLOGY [place], [place] [address] (Wo rk) documented as of this encounter Visit Diagnoses Diagnosis Seborrheic keratosis Other seborrheic keratosis Pruritus Unspecified pruritic disorder documented in this encounter Care Teams Packager Head Relationship Specialty Start Date End Date Mari Jacob MD PCP - General Family Medicine 02/02/[address] [place] [address] [place] [address] documented as of this encounter
--- OUTSIDE RECORDS SUMMARY | 2022-07-17 12:37 | XMS_ITS | Clinical Summary ---
:1940 Author Organization [facility] [place] [address] Care Team Providers Name Role Phone Mari Jacob MD Primary Care Provider Allergies Active Allergy Reactions Severity Noted Date Comments Doxepin 02/02/2022 Other reaction( s): Vomiting Gadolinium-Containing Rash High 03/01/2022 Contrast Media Iohexol Hives 03/05/2022 03/05/22-Last sca n within 8 hours of receiv ing contrast dye developed h becky. Denies respiratory sym ptoms. Did not call health provider, managed with ce rtrizine. Penicillins 06/17/2011 Sulfa (Sulfonamide 06/17/2011 Antibiotics) Medications Medication Sig Dispensed Refills Start Date End Date Status calcium-vitamin D3 600 Take by mouth. 0 Active mg calcium- 400 unit Tablet gabapentin (NEURONTIN) Take 900 mg by 0 02/13/2018 Active 300 mg Capsule mouth 3 times daily. occ takes 900 mg prn in addition, rarely takes 900 mg TID loperamide (IMODIUM Take 4 mg by 0 Active A-D) 2 mg Tablet mouth daily. Maximum 16 mg in 24 hours Eliquis 5 mg Tablet 0 07/18/2020 Active calcium-vitamin D3 600 Daily. 0 07/22/2020 Active mg-5 mcg (200 unit) Tablet triamcinolone (Kenalog) Apply twice daily 453.6 g 1 02/03/20 Active 0.1 % Cream to affected areas lactobacillus Take 1 tablet by 0 Active (Acidophilus) Capsule mouth daily. amLODIPine (Norvasc) 5 Take 1 tablet by 0 2022 Active mg Tablet mouth daily. lisinopriL (Zestril) 5 Take 1 tablet by 0 2022 Active mg Tablet mouth daily. 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/2013 Transient ischemia 02/28/2013 Nuclear sclerosis 02/28/2013 Seborrheic keratosis 06/16/2011 Cancer of right lung lower lobe Overview: Metastatic adenocarcinoma of the right l rhianna presenting 10/15 B DVT at presentation rx lovenox Change to eliquis 08/20 Initially treated with carboplatinum an d Alimta Partial remission followed by Alimta ma intenance Progressive disease in 04/16, start nivo lumab Stop nivolumab 06/[address] scan 07/19 question of progressive di sease PET scan 09/18 progressive disease with left hypermetabolic nodularity and pleural effusion PET scan 11/19 [place]: Improved [place] [facility] 03/02/19 Stop nivolumab for grade 3 colitis 05/19 PET negative 04/[address] stable 02/20 Hypothyroidism due to drugs Encounters Date Type Specialty Care Team Description 06/26/2022 Office Visit Dermatology Ashok Xiong MD Seborr heic keratosis; Pruritus from Last 3 Months Family History Medical History Relation Comments Chronic Obstructive Pulmonary Disease Father Breast Cancer Mother Breast Cancer Sister Amblyopia Neg Hx Cataracts Neg Hx Diabetes Neg Hx Glaucoma Neg Hx Heart Disease Neg Hx Hypertension Neg Hx Macular Degeneration Neg Hx Retinal Detachment Neg Hx Strabismus Neg Hx Thyroid Disease Neg Hx Relation Status Comments Father Mother Sister Social History Tobacco Use Types Packs/Day Years Used Date Former Smoker Cigarettes 1 30 Quit: 10/01/19 80 Smokeless Tobacco: Never Used Alcohol Use Standard Drinks/Week Comments No 0 (1 standard drink = 0.6 oz pure alcoho l) Sex Assigned at Date Recorded Not on file Last Filed Vital Signs Vital Sign Reading [...] Mass Index 24.65 03/05/2022 10:33 AM EDT Plan of Treatment Upcoming Encounters Date Type Specialty Care Team Description 10/02/2022 Office Visit Dermatology Ashok Xiong MD [address] [facility] DERMATOLOGY [place], [place] [address] (Wo rk) Health Maintenance Due Date Last Done Comments Covid-19 Vaccine (#1) 1945 Hepatitis C Screening 1960 Tdap adult 1961 Tetanus vaccine 1961 Zoster vaccine (1 of 2) 1992 Advance Directive 1997 Pneumoccocal Vaccine: 65+ (1 - PCV) 2007 Influenza (Flu) vaccine (1 of 1 - Influenza standard 07/02/2022 series) Insurance Payer Benefit Plan / Subscriber ID Effective Phone Address T ype Group Dates MEDICARE MEDICARE PART A [id number] 2007-Prese [phone] [place] [address] [facility] [id number] 2004-Prese [address] [facility] [place] [address] [employer] OPTUM [place] [id number] 2020-Pres [phone] [address] [facility] [address] [place] [id number] Care Teams Crown Perforator Operator Relationship Specialty Start Date End Date Mari Jacob MD PCP - General Family Medicine 02/02/[address] [place] [address] [place] [address]
--- OUTSIDE RECORDS SUMMARY | 2022-07-17 12:37 | XMS_ITS | Encounter Summary ---
:1940 Author Organization [facility] [address] Care Team Providers Name Role Phone Brianne Sin MD Primary Care Provider Reason for Referral Diagnostic Test (Routine) - Closed Specialty Diagnoses / Procedures Referred By Contact Refer red To Contact Radiology Diagnoses Malignant neoplasm of upper lobe of right lung Jimmy Bajwa MD [facility] Rad Nuclear Med Procedures NM Malik PET CT Skull Base to Mid-thigh [facility] HEMATOLOGY/[place] [address] [place] [address] Referral ID Status Reason Start Date Expiration Date Visits V isits Requested Authorized [id number] Closed Specialty 08/03/2019 08/02/2020 1 1 Service Requested Encounter Details Date Type Department Care Team Description 08/03/2019 Office Visit Hematology/Oncology Rowan Bajwa MD Malignant neoplasm of upper lobe of righ t lung; at [address] [place] HEMATOLOGY/ONCOLOG [address] [place] DEPT. [phone] [place], [place] [address] Social History Tobacco Use Types [...] Sign Reading Time Taken Comments Blood Pressure 136/71 08/03/2019 11:27 AM EDT Pulse 71 08/03/2019 11:27 AM EDT Temperature 36.1 ??C (97 ??F) 08/03/2019 11:27 AM EDT Respiratory Rate 16 08/03/2019 11:27 AM EDT Oxygen Saturation 99% 08/03/2019 11:27 AM EDT Inhaled Oxygen Concentration - - Weight 68.8 kg (151 lb 9.6 oz) 08/03/2019 11:27 AM EDT Height 173 cm (5' 8.11) 08/03/2019 11:27 AM EDT copied Body Mass Index 22.98 08/03/2019 11:27 AM EDT documented in this encounter Progress Notes Jimmy Bajwa MD - 08/03/2019 11:30 AM EDT Subjective: Patient ID: Parveen Gamez [...] and pleural effusion PET scan 11/19 in [place]: Improved Resume nivolumab in [facility] Return to [facility] 03/02/19 PET negative 04/21/19 Stop nivolumab for grade 3 colitis 05/19 The patient returns to the [facility]. He had been receiving single agent nivolumab for his metastatic adenocarcinoma of the right lung. We stopped it 05/19 due to grade 3 diarrhea. We also started him on 1 mg/kg of prednisone. He was mostly having formed stools. Not that frequently. Still using occasional Imodium. He still bumping his prednisone dose up to 25 mg whenever he gets very loose stools. No blood. No cramping pain. His energy is excellent. He is getting exercise on his treadmill daily. Planning to go back to [place] around September 10. Wanted to get a PET scan here before he heads [place] Patient Active Problem List Diagnosis Code ??? [...] taper as directed (Patient taking differently: Take 20 mg by mouth daily. Takes 15-25 mg daily based on stooling.), Disp: 90 tablet, Rfl: 3 ??? omeprazole (PRILOSEC) 10 mg Capsule, Delayed Release(E.C.), Take 40 mg by mouth daily., Disp: , Rfl: ??? loperamide (IMODIUM A-D) 2 mg Tablet, Take by mouth 4 times daily as needed for Diarrhea. Maximum 16 mg in 24 hours, Disp: , Rfl: ??? gabapentin (NEURONTIN) 300 mg Capsule, 900 mg nightly., Disp: , Rfl: ??? calcium-vitamin D3 600 [...] is oriented to person, place, and time. Labs today White count 8.0, hemoglobin 14.3, platelets 201 Creatinine 1.16, TSH 2.3 Assessment and Plan: 79-year-old man with a long history of locally advanced/metastatic adenocarcinoma of the lung. He was initially treated with carboplatinum and Alimta and for his second line therapy he was treated withnivolumab. 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 He seems to be a bit better. I encouraged him to continue trying to taper down the prednisone. If his diarrhea persists and his need for steroids continues beyond the 4 to 6-month window off of his immunotherapy I would consider getting a colonoscopy to be sure there is not another process contributing. I will have him get a PET scan in early September and then see him a week after before he heads south. If he has more problems I would be happy to see him sooner. documented in this encounter Plan of Treatment Upcoming Encounters Date Type Specialty Care Team Description 10/02/2022 Office Visit Dermatology Ashok Xiong MD [address] [place] [address] DERMATOLOGY [place], [place] [address] (Wo rk) documented as of this encounter Results PA Malik PET CT Skull Base to Mid-thigh [...] For questions regarding this report, please contact [facility] number below. ? Narrative 09/01/2019 4:03 PM EDT EXAMINATION: [facility] PET CT SKULL BASE TO MID-THIGH CLINICAL HISTORY: f/u lung cancer TECHNIQUE: Following IV injection of 18- wflklp-6-tiwescgkbpce (FDG) a standard uptake of approximately 60 [...] might be different from the original. EXAMINATION: [place] MALIK PET CT SKULL B ASE TO MID-THIGH CLINICAL HISTORY: f/u lung cancer TECHNIQUE: Following IV injection of 18- hfddct-8-ajyvposhmtde (FDG) a standard uptake of approximately 60 [...] of upper lobe, bronch us or lung Colitis Other and unspecified noninfectious abraham roenteritis and colitis Malignant neoplasm of upper lobe of righ t lung Malignant neoplasm of upper lobe, bronch us or lung documented in this encounter Care Teams Bank Representative Relationship Specialty Start Date End Date Brianne Sin MD PCP - General Family Medicine 12/24/15 02/01/[address] [place] [address] [place] [id number] documented as of this encounter
--- OUTSIDE RECORDS SUMMARY | 2022-07-17 12:37 | XMS_ITS | Encounter Summary ---
:1940 Author Organization [facility] [place] [address] Care Team Providers Name Role Phone Mari Jacob MD Primary Care Provider Reason for Visit Reason Comments Follow-up Encounter Details Date Type Department Care Team Description 03/27/2022 Office Visit Dermatology at [facility], Seborrh eic keratosis; Terri JANE Pruritus [address] [facility] Clinton B DERMATOLOGY [place], [place] [phone] [phone] Social History Tobacco Use Types Packs/Day Years Used Date Former Smoker Cigarettes 1 30 Quit: 10/01/19 80 Smokeless Tobacco: Never Used Alcohol Use Standard Drinks/Week Comments No 0 (1 standard drink = 0.6 oz pure alcoho l) Sex Assigned at Date Recorded Not on file documented as of this encounter Progress Notes Ashok Xiong MD - 03/27/2022 2:15 PM EDT Problem: 1. ??Follow-up pruritus, 1 -month check, s/p 25 narrowband UVB phototherapy sessions at [facility] 2. ??History of multiple seborrheic keratoses 3. ??History of generalized pruritus associated with his ongoing oncologic therapy 4. ??History of past actinic keratosis, treated with liquid nitrogen and also with 5-FU in the past at the [facility] Som follows up and states that his itching is doing much better. It is now down to a level of 1-2 out of 10 in terms of severity. He will occasionally still take his gabapentin he will take 3 of the 300 mg tablets for 900 mg total dose once or perhaps twice a day rather than 3 times daily as he oncedid previously. Physical examination reveals a pleasant 81-year-old gentleman who has no active Grovers disease. Theseborrheic keratoses that I treated in the past have healed nicely. His skin is mildly xerotic but he has no active dermatitis. Assessment plan: Generalized pruritus 1. Patient with significant improvement 2. Continue gabapentin as needed at 900 mg up to 3 times a day. He is only infrequently doing that much a day. 3. Cut back on frequency of narrowband UVB from 2 - 3 times a week to just once every 2 weeks now. 4. Return to clinic in 3 months for repeat check. CC: Mari Jacob MD documented in this encounter Plan of Treatment Upcoming Encounters Date Type Specialty Care Team Description 10/02/2022 Office Visit Dermatology Ashok Xiong MD [address] [facility] DERMATOLOGY [place], [place] [address] (Wo rk) documented as of this encounter Visit Diagnoses Diagnosis Seborrheic keratosis Other seborrheic keratosis Pruritus Unspecified pruritic disorder documented in this encounter Care Teams Physics Tutor Relationship Specialty Start Date End Date Mari Jacob MD PCP - General Family Medicine 02/02/[address] [place] [address] [place] [address] documented as of this encounter
--- OUTSIDE RECORDS SUMMARY | 2022-07-17 12:37 | XMS_ITS | Encounter Summary ---
:1940 Author Organization [place] [address] Care Team Providers Name Role Phone Brianne Sin MD Primary Care Provider Encounter Details Date Type Department Care Team Description 09/12/2020 Office Visit Dermatology at [facility], Seborrh eic keratosis; Terri JANE Pruritus [address] [facility] Clinton B DERMATOLOGY [place], [place] [phone] Social History Tobacco Use Types Packs/Day Years Used Date Former Smoker Cigarettes 1 30 Quit: 10/01/19 80 Smokeless Tobacco: Never Used Alcohol Use Standard Drinks/Week Comments No 0 (1 standard drink = 0.6 oz pure alcoho l) Sex Assigned at Date Recorded Not on file documented as of this encounter Progress Notes Ashok Xiong MD - 09/12/2020 8:15 AM EST Problem: 1. Yearly skin checkup 2. History of multiple seborrheic keratoses 3. History of generalized pruritus associated with his ongoing oncologic therapy 4. History of past actinic keratosis, treated with liquid nitrogen and also with 5-FU in the past [facility] Parveen follows up and unfortunately in April he lost his . She had a significant PA sometime ago and apparently suffered sudden cardiac in her sleep. His skin has been doing well although he has significant pruritus that was associated with his past oncologic therapy. He gets significant relief with gabapentin that he takes about a 1.8 g a day in divided doses. There is been no recurrence ofhis lung cancer. He continues to see oncology and has every 6 month PET scans. He has been off of Opdivo for 2 years. He says he is tried some triamcinolone cream without success for his itching. Physical examination reveals a pleasant 80-year-old gentleman has benign examination of the head andthe neck the chest the back the hands the arms of forearms. 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 He has quite number of small seborrheic keratoses on his back. He has diffuse xerosis cutis particular of his legs. Assessment and plan: Benign skin examination 1. Patient reassured about his benign skin examination 2. Return to clinic in a year for repeat check. Generalized pruritus 1. Dr. Sin is treating him successfully with gabapentin 2. Recommend also trial of CeraVe cream for his Grovers disease and for his diffuse xerosis cutis. CC: Brianne Sin MD ?? documented in this encounter Plan of Treatment Upcoming Encounters Date Type Specialty Care Team Description 10/02/2022 Office Visit Dermatology Ashok Xiong MD [address] [facility] DERMATOLOGY [place], [place] [address] (Wo rk) documented as of this encounter Visit Diagnoses Diagnosis Seborrheic keratosis Other seborrheic keratosis Pruritus Unspecified pruritic disorder documented in this encounter Care Teams Cell Technician Relationship Specialty Start Date End Date Brianne Sin MD PCP - General Family Medicine 12/24/15 02/01/[address] [place] [address] ADELIA Lweis [phone] documented as of this encounter
--- OUTSIDE RECORDS SUMMARY | 2022-07-17 12:38 | XMS_ITS | Encounter Summary ---
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 [address] Referral ID Status Reason Start Date Expiration Date Visits Requ ested Visits Authorized [id number] Closed 03/02/2019 03/01/2020 1 1 Encounter Details Date Type Department Care Team Description 03/30/2019 Infusion Hematology Oncology at [facility] lignant neoplasm of [facility] of [facility] lung [address] [place] [phone] Social History Tobacco Use Types Packs/Day Years Used Date Former Smoker Cigarettes 11 30 Quit: 10/01/19 80 Smokeless Tobacco: Never Used Alcohol Use Standard Drinks/Week Comments No 0 (1 standard drink = 0.6 oz pure alcoho l) Sex Assigned at Date Recorded Not on file documented as of this encounter Progress Notes Arely Ruggiero RN - 03/30/2019 2:00 PM EDT INFUSION THERAPY ADMINISTRATION NOTES DIAGNOSIS: NSCLC CYCLE #3 Day 1 REASON FOR VISIT: Nivolumab SUBJECTIVE: Parveen has no complaints OBJECTIVE: VSS. LAB DATA: Reviewed with provider in clinic and WNL for treatment today. V ACCESS: PIV Pre administration: Chemotherapy orders independently verified for drug name, route, and dosage per patient's height, weight and BSA by ARELY RUGGIERO RN and onsite pharmacist. REACTIONS (DESCRIPTION, TIME, INTERVENTION AND EFFECTIVENESS) none ASSESSMENT: Parveen was awake, alert and tolerated treatment well. PIV flushed with NS and discontinued prior to dismissal. PLAN: Return to clinic per routine. documented in this encounter Plan of Treatment Upcoming Encounters Date Type Specialty Care Team Description 10/02/2022 Office Visit Dermatology Ashok Xiong MD [address] [facility] [address] DERMATOLOGY [place], [place] [address] (Wo rk) documented as of this encounter Visit Diagnoses Diagnosis Malignant neoplasm of upper lobe of righ t lung Malignant neoplasm of upper lobe, bronch us or lung documented in this encounter Administered Medications Inactive Administered Medications - up to 3 most recent administrations Medication Order MAR Action Action Date Dose Rate Site nivolumab (OPDIVO) 240 mg in New Bag 03/30/2019 3:03 PM EDT 240 mg 248 mL/hr sodium chloride 0.9% 124 mL infusion 240 mg, Intravenous, ONCE, 1 dose, On Pili 03/30/19 at 1545, Administer over 30 Minutes, Flush line with NS after each dose, This agent is restricted to outpatient use. Is this drug being given as an outpatient? Yes documented in this encounter Care Teams Privacy Compliance Manager Relationship Specialty Start Date End Date Brianne Sin MD PCP - General Family Medicine 12/24/15 02/01/[address] [place] [phone] documented as of this encounter
--- OUTSIDE RECORDS SUMMARY | 2022-07-17 12:38 | XMS_ITS | Encounter Summary ---
:1940 Author Organization [facility] [place] [address] Care Team Providers Name Role Phone Brianne Sin MD Primary Care Provider Encounter Details Date Type Department Care Team Description 04/27/2019 Office Visit Hematology/Oncology Rowan Bajwa MD Malignant neoplasm of at [facility] upper lobe of right [address] lung [place], [place] HEMATOLOGY/ONCOLOG [id number] Y DEPT. [phone] [place], [place] [address] Social History Tobacco Use Types [...] Sign Reading Time Taken Comments Blood Pressure 148/79 04/27/2019 10:14 AM EDT Pulse 80 04/27/2019 10:14 AM EDT Temperature 36.5 ??C (97.7 ??F) 04/27/2019 10:14 AM EDT Respiratory Rate 20 04/27/2019 10:14 AM EDT Oxygen Saturation 98% 04/27/2019 10:14 AM EDT Inhaled Oxygen Concentration - - Weight 68.9 kg (152 lb) 04/27/2019 10:14 AM EDT Height 173 cm (5' 8.11) 04/27/2019 10:14 AM EDT copied Body Mass Index 23.04 04/27/2019 10:14 AM EDT documented in this encounter Progress Notes Jimmy Bajwa MD - 04/27/2019 10:30 AM EDT Subjective: Patient ID: Parveen Gamez is a 78 y.o. male. HPI Metastatic adenocarcinoma of the [...] and pleural effusion PET scan 11/19 in [facility]: Improved Resume nivolumab in [facility] Return to [facility] 03/02/19 The patient returns to the [facility]. He is receiving single agent nivolumab for his metastatic adenocarcinoma of the right lung. Overall tolerating therapy reasonably well. He has been having on and off diarrhea for quite some time. Was started on prednisone while in [place]. Still taking some prednisone but going up and down his dose depending on his symptoms. He took up to 40 mg for 4 days but typically is taking on 20 mg daily. This is higher than the last time I saw him. He tells me he normally has about 3 stools per day. He will sometimes get looser stringy stools. They did not exceed 6/day. He is starting to feel somewhat puffy in the face. Patient Active Problem List Diagnosis Code ??? [...] (PRILOSEC) 10 mg Capsule, Delayed Release(E.C.), Take 20 mg by mouth daily., Disp: , Rfl: ??? loperamide (IMODIUM A-D) 2 mg Tablet, Take by mouth 4 times daily as needed for Diarrhea. Maximum 16 mg in 24 hours, Disp: , Rfl: ??? triamcinolone (KENALOG) 0.025 % Cream, Apply topically 2 times daily., Disp: , Rfl: ??? calcium-vitamin D3 600 mg calcium- 400 unit Tablet, Take by mouth., Disp: , Rfl: ??? triamcinolone (ARISTOCORT) 0.5 % Cream, Apply topically 3 times daily as needed., Disp: , Rfl: ??? enoxaparin (LOVENOX) 80 mg/0.8 mL Syringe, Inject 100 mg subcutaneously daily. Indications: DeepVein Thrombosis with Pulmonary Embolism, Disp: , Rfl: ??? predniSONE (DELTASONE) 5 mg Tablet, Take 4 tablets by mouth daily. Tape as directed (Patient taking differently: Take 20 mg by mouth daily. Tape as directed. Takes 10 mg to 40 mg as needed to keep colitis and pruritis under control), Disp: 120 tablet, Rfl: 5 ??? gabapentin (NEURONTIN) 300 mg Capsule, 900 mg daily., Disp: , Rfl: ??? METOPROLOL SUCCINATE ORAL, Take 25 mg by mouth daily as needed., Disp: , Rfl: No current facility-administered medications for this visit. Facility-Administered Medications Ordered in Other Visits: ??? nivolumab (OPDIVO) 240 mg in sodium chloride 0.9% 124 mL infusion, 240 mg, Intravenous, Once, Jimmy Bajwa MD Allergies Allergen Reactions ??? Pcn [Penicillins] ??? [...] place, and time. Labs today White count 8, hemoglobin 13.7, platelets 182 Creatinine 1.26, TSH 3.32 PET scan, I reviewed images personally: IMPRESSION Resolved pleural effusion on the left. Previously noted FDG uptake along the left basilar pleura has resolved. Decreased small pleural effusion on the right. No metabolically active malignancy identified at this time point. ?? Thank you for letting us participate in the care of this patient. For questions regarding this report, please contact the number below. 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 He was initially treated with carboplatinum and Alimta and for his second line therapy he was treated withnivolumab. He continues on nivolumab with good control of his disease. His PET scan is very reassuring that he has no active disease at this time. I am more concerned by his prednisone use. I think he is starting to get cushingoid from his prednisone. I am not 100% convinced that this pattern of bowel movements is all immunotherapy toxicity. By strict criteria he does not even have grade 2 colitis which is more frequency of stools rather than loose stools. In addition his colitis symptoms did not really resolve when he stopped immunotherapy. I recommend that he taper down the prednisone to 10 mg or less. He really does not want to stop the immunotherapy. If he needs more than 10 mg to control his symptoms I would recommend we get a GI consult to be sure we know what we are dealing with at this point. He has not had a colonoscopy in 11 years. I am going to continue the immunotherapy since technically he does not have even grade 2 colitis. I will plan to see him back in 6 weeks but remain available if he has more problems. documented in this encounter Plan of Treatment Upcoming Encounters Date Type Specialty Care Team Description 10/02/2022 Office Visit Dermatology Ashok Xiong MD [address] [place] [address] DERMATOLOGY [place], [place] [address] (Wo rk) documented as of this encounter Visit Diagnoses Diagnosis Malignant neoplasm of upper lobe of righ t lung Malignant neoplasm of upper lobe, bronch us or lung documented in this encounter Care Teams Tyre Retreader Relationship Specialty Start Date End Date Brianne Sin MD PCP - General Family Medicine 12/24/15 02/01/[address] [place] [address] [place] [phone] documented as of this encounter
--- OUTSIDE RECORDS SUMMARY | 2022-07-17 12:38 | XMS_ITS | Encounter Summary ---
:1940 Author Organization [facility] [address] Care Team Providers Name Role Phone Brianne Sin MD Primary Care Provider Reason for Visit Reason Comments Lung Cancer Encounter Details Date Type Department Care Team Description 06/06/2018 Office Visit Hematology/Oncology Dell Mccauley, Mal ignant neoplasm of upper lobe of right lung; at [facility] Hypothyroidism due to drugs [address] [facility] [address] [address], [place] [phone] Social History Tobacco Use Types Packs/Day Years Used Date Former Smoker Cigarettes 1 30 Quit: 10/01/19 80 Smokeless Tobacco: Never Used Alcohol Use Standard Drinks/Week Comments No 0 (1 standard drink = 0.6 oz pure alcoho l) Sex Assigned at Date Recorded Not on file documented as of this encounter Last Filed Vital Signs Vital Sign Reading Time Taken Comments Blood Pressure 141/90 06/06/2018 7:55 AM EDT Pulse 57 06/06/2018 7:55 AM EDT Temperature 36.5 ??C (97.7 ??F) 06/06/2018 7:55 AM EDT Respiratory Rate 16 06/06/2018 7:55 AM EDT Oxygen Saturation 100% 06/06/2018 7:55 AM EDT Inhaled Oxygen Concentration - - Weight 73.5 kg (162 lb) 06/06/2018 7:55 AM EDT Height 173 cm (5' 8.11) 06/06/2018 7:55 AM EDT Body Mass Index 24.55 06/06/2018 7:55 AM EDT documented in this encounter Progress Notes Dell Mccauley MD - 06/06/2018 8:00 AM EDT Images from the original note were not included. 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 The patient started Nivolumab May 07, 2016 with complete response Subjective: Parveen comes in today for continued treatment with Nivolumab. He continues to have fairly significant itching but notes that if he is active during the day that seemed to help and if it is bothersome for him he will take gabapentin with good relief. He is not having any bowel problems and notes that his bowels are probably better than they were prior to starting treatment. His breathing is fine with no respiratory problems. He has a bit of a dry mouth and drinks water frequently during the day. Review of systems though is otherwise quite negative. Past medical history and social history are reviewed and unchanged from when I saw him 2 weeks ago. Current Outpatient Prescriptions on File Prior to Visit Medication Sig Dispense Refill ??? doxepin (SINEQUAN) 25 mg Capsule TAKE 1-2 CAPSULES BY MOUTH AT BEDTIME. 60 capsule 1 ??? triamcinolone (KENALOG) 0.025 % Cream Apply topically 2 times daily. ??? gabapentin (NEURONTIN) 300 mg Capsule 600 mg 3 times daily. ??? calcium-vitamin D3 600 mg calcium- 400 unit Tablet Take by mouth. ??? triamcinolone (ARISTOCORT) 0.5 % Cream Apply topically 3 times daily as needed. ??? enoxaparin (LOVENOX) 80 mg/0.8 mL Syringe Inject 100 mg subcutaneously daily. 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 METOPROLOL SUCCINATE ORAL Take 25 mg by mouth daily as needed. No current facility-administered medications on file prior to visit. 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 Review of Systems Constitutional: Negative for fever, chills, activity change, fatigue and unexpected weight change. HENT: Negative for sore throat, mouth sores and trouble swallowing. Eyes: Negative. Respiratory: Negative for cough, shortness of breath and wheezing. Cardiovascular: Negative for chest pain, palpitations and leg swelling. Gastrointestinal: Negative for nausea, vomiting, abdominal pain, diarrhea, constipation and abdominal distention. Genitourinary: Negative for dysuria and difficulty urinating. Musculoskeletal: Negative. Skin: Negative. Neurological: Negative. Hematological: Negative for adenopathy. Head: Normocephalic, without obvious abnormality, atraumatic Eyes: PERRL, conjunctiva/corneas clear, EOM's intact, fundi benign, both eyes Ears: Normal TM's and external ear canals, both ears Nose: Nares normal, septum midline, mucosa normal, no drainage or sinus tenderness Throat: Lips, mucosa, and tongue normal; teeth and gums normal Neck: Supple, symmetrical, trachea midline, no adenopathy, thyroid: not enlarged, symmetric, no tenderness/mass/nodules, no carotid bruit or JVD Back: Symmetric, no curvature, ROM normal, no CVA tenderness Lungs: Clear to auscultation bilaterally, respirations unlabored Chest Wall: No tenderness or deformity Heart: Regular rate and rhythm, S1, S2 normal, no murmur, rub or gallop Abdomen: Soft, non-tender, bowel sounds active all four quadrants, no masses, no organomegaly Extremities: Extremities normal, atraumatic, no cyanosis or edema Pulses: 2+ and symmetric Skin: Skin color, texture, turgor normal, no rashes or lesions Lymph nodes: Cervical, supraclavicular, and axillary nodes normal Neurologic: Normal ONCBCN ONCOLOGY (AMB) 02/16/2017 03/02/2017 03/16/2017 Day, Cycle Day 1, Cycle 1 Day 1, Cycle 2 Day 1, Cycle 3 nivolumab (OPDIVO) IV 240 mg 240 mg 240 mg ONCBCN ONCOLOGY (AMB) 03/30/2017 04/13/2017 04/27/2017 Day, Cycle Day 1, Cycle 4 Day 1, Cycle 5 Day 1, Cycle 6 nivolumab (OPDIVO) IV 240 mg 240 mg 240 mg ONCBCN ONCOLOGY (AMB) 05/11/2017 Day, Cycle Day 1, Cycle 7 nivolumab (OPDIVO) IV 240 mg ONCBCN ONCOLOGY (AMB) 05/25/2017 06/08/2017 Day, Cycle Day 1, Cycle 8 Day 1, Cycle 9 nivolumab (OPDIVO) IV 240 mg 240 mg ONCBCN ONCOLOGY (AMB) 2017 07/06/2017 Day, Cycle Day 1, Cycle 10 Day 1, Cycle 11 nivolumab (OPDIVO) IV 240 mg 240 mg ONCBCN ONCOLOGY (AMB) 07/20/2017 Day, Cycle Day 1, Cycle 12 nivolumab (OPDIVO) IV 240 mg ONCBCN ONCOLOGY (AMB) 08/02/2017 Day, Cycle Day 1, Cycle 13 nivolumab (OPDIVO) IV 240 mg ONCBCN ONCOLOGY (AMB) 08/17/2017 Day, Cycle Day 1, Cycle 14 nivolumab (OPDIVO) IV 240 mg ONCBCN ONCOLOGY (AMB) 08/31/2017 Day, Cycle Day 1, Cycle 15 nivolumab (OPDIVO) IV 240 mg ONCBCN ONCOLOGY (AMB) 09/14/2017 Day, Cycle Day 1, Cycle 16 nivolumab (OPDIVO) IV 240 mg ONCBCN ONCOLOGY (AMB) 02/15/2018 Day, Cycle Day 1, Cycle 1 nivolumab (OPDIVO) IV 240 mg ONCBCN ONCOLOGY (AMB) 03/01/2018 03/15/2018 03/29/2018 Day, Cycle Day 1, Cycle 2 Day 1, Cycle 3 Day 1, Cycle 4 nivolumab (OPDIVO) IV 240 mg 240 mg 240 mg ONCBCN ONCOLOGY (AMB) 04/12/2018 Day, Cycle Day 1, Cycle 5 nivolumab (OPDIVO) IV 240 mg ONCBCN ONCOLOGY (AMB) 04/25/2018 Day, Cycle Day 1, Cycle 6 nivolumab (OPDIVO) IV 240 mg EXAMINATION: PET CT MALIK SKULL BASE TO MID-THIGH 07/29/17?? CLINICAL HISTORY: Follow up lung cancer on immunotherapy. Clinically doing well ?? TECHNIQUE: Following IV injection of 78-klpypa-5-deoxyglucose (FDG) a standard uptake of approximately 60 minutes, a noncontrast CT scan followed by a PET scan were acquired from the base of the skull to mid thighs. The noncontrast CT was used for anatomic localization and photon attenuation correction of the PET scan. ?? Blood glucose level: 76 (mg/dL) ?? FDG dose: 11.9 mCi ?? COMPARISON: March 26, 2017 ?? FINDINGS: ?? HEAD/NECK: No abnormal activity is present. ?? There is a retention cyst in the left maxillary antrum. ?? CHEST: No abnormal activity is present. ?? There is partial atelectasis of the right lower lung with a right-sided pleural effusion. These findings are not changed since the previous study. ?? There is cardiac enlargement and a small amount of coronary artery calcification. Pulmonary parenchymal scarring is seen at both lung apices. There is bilateral centrilobular emphysema. ?? ABDOMEN/PELVIS: No abnormal activity is present. ?? Sigmoid diverticulosis appears unchanged. ?? SKELETON/EXTREMITIES: No significant abnormal activity is present. There are postoperative changes involving the left shoulder. Increased activity in the left acromioclavicular joint represents degenerative arthropathy. Decreased activity adjacent to the left femoral head consistent with a bursitis is unchanged. ?? IMPRESSION There is no evidence of recurrent or metastatic lung cancer. ? EXAMINATION: PET CT ALPINE SKULL BASE TO MID-THIGH CLINICAL HISTORY: Follow-up lung cancer on immunotherapy for last 18 months TECHNIQUE: Following IV injection of 23-kywppw-3-deoxyglucose (FDG) a standard uptake of approximately 60 minutes, a noncontrast CT scan followed by a PET scan were acquired from the base of the skull to mid thighs. The noncontrast CT was used for anatomic localization and photon attenuation correction of the PET scan. Blood glucose level: 77 (mg/dL) FDG dose: 14.1 mCi COMPARISON: None FINDINGS: HEAD/NECK: Normal activity in all soft tissue regions of the neck and visualized lower head. No significant adenopathy. CHEST: Normal activity in all soft tissue regions. A new 7 m pulmonary nodule in the left lung base (axial image 120) and a new sub-5 mm nodule at the posterior periphery of the left lung base (axial image 121). Several new sub-5 mm pulmonary nodules in the anterior left upper lobe (axial image 103). Stable right lower lobe atelectasis and stable small right pleural effusion. ABDOMEN/PELVIS: Normal activity in all soft tissue regions. SKELETON/EXTREMITIES: Stable small FDG avid focus at the lateral margin of the distal clavicle, consistent with stable postoperative change. No other significant osseous abnormalities. Injection site noted in the right antecubital region. ? Impression ? 1. ??Interval appearance of several CT visualized subcentimeter pulmonary nodules in the left lung base and several sub-5 mm pulmonary nodules in the anterior left upper lobe. These are nonspecific and could represent interval inflammatory nodules. ??The largest and most concerning of these nodules is in the left lung base. Consider short interval follow-up CT in 2-3 months. 2. ??No evidence for recurrence in the right lung and no evidence for active jann or extrathoracic sites of metastasis. Review of Parveen's lab today shows white count of 5.86 hemoglobin 13.9 hematocrit 41.8 platelet count 196. CMP shows normal electrolytes and a creatinine of 1.47 alkaline phosphatase of 120 TSH of 7.15and T4 of 8.1. It is notable that his TSH often fluctuates between near normal and this range. His tr ansaminases are fine with an AST of 19 and ALT of 22 Assessment/plan: Parveen is continuing to tolerate the checkpoint inhibitor with only some mild autoimmune effects consisting of some itching which is well controlled with gabapentin. Additionally he has a bit of a dry mouth. The PET scanning is without contrast but he does have a couple of very small nodules that do need to be rechecked. If he is still in the area and a few months a noncontrast CT scan would be reasonable to follow this up. He does have some renal insufficiency so I would like to avoid contrast dye if possible. We will go ahead with treatment today and see him back in 2 weeks for another infusion. 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
--- OUTSIDE RECORDS SUMMARY | 2022-07-17 12:38 | XMS_ITS | Encounter Summary ---
:1940 Author Organization [facility] [place] [address] Care Team Providers Name Role Phone Brianne Sin MD Primary Care Provider Reason for Visit Reason Comments Chemotherapy Cycle 6, Day 1 - Nivolumab Treatment/Therapy Plan Authorization (Routine) - Closed Specialty Diagnoses / Procedures Referred By Contact Refer red To Contact Diagnoses Malignant neoplasm of upper lobe of right lung Jimmy Bajwa MD [facility] D R HEMATOLOGY/[place] [address] Referral ID Status Reason Start Date Expiration Date Visits Requ ested Visits Authorized [id number] Closed 03/02/2019 03/01/2020 1 1 Encounter Details Date Type Department Care Team Description 05/11/2019 Infusion Hematology Oncology at [facility] neoplasm of [facility] lobe of [facility] lung [address] [place] [phone] Social History Tobacco Use Types [...] Sign Reading Time Taken Comments Blood Pressure 123/68 05/11/2019 10:41 AM EDT Pulse 73 05/11/2019 10:41 AM EDT Temperature 36.5 ??C (97.7 ??F) 05/11/2019 10:41 AM EDT Respiratory Rate 18 05/11/2019 10:41 AM EDT Oxygen Saturation 97% 05/11/2019 10:41 AM EDT Inhaled Oxygen Concentration - - Weight 68.3 kg (150 lb 9.6 oz) 05/11/2019 10:41 AM EDT Height 173 cm (5' 8.11) 05/11/2019 10:41 AM EDT copied Body Mass Index 22.82 05/11/2019 10:41 AM EDT documented in this encounter Progress Notes Radha Martinez RN - 05/11/2019 10:30 AM EDT INFUSION THERAPY ADMINISTRATION NOTES DIAGNOSIS: NSCLC CYCLE #: Cycle 6, Day 1 - Nivolumab REASON FOR VISIT: To receive chemotherapy. SUBJECTIVE: Parveen offers no complaints. OBJECTIVE: VSS. Weight stable. LAB DATA: WBC - 6.08, H/H - 12.4/39.0, Plt Ct - 283, ANC - 5.15, Lytes wnl, BUN/CR - 19/1.32 IV ACCESS: PIV Pre administration: Chemotherapy orders independently verified for drug name, route, and dosage per patient's height, weight and BSA by Damion Martinez RN and Pramod Redmond [facility]. REACTIONS (DESCRIPTION, TIME, INTERVENTION AND EFFECTIVENESS) none ASSESSMENT: Parveen was awake, alert and tolerated treatment well. PIV discontinued prior to dismissal. PLAN: Return to clinic per routine. documented in this encounter Plan of Treatment Upcoming Encounters Date Type Specialty Care Team Description 10/02/2022 Office Visit Dermatology Ashok Xiong MD [address] [place] [address] DERMATOLOGY [place], [place] [address] (Wo rk) documented as of this encounter Visit Diagnoses Diagnosis Malignant neoplasm of upper lobe of righ t lung Malignant neoplasm of upper lobe, bronch us or lung documented in this encounter Administered Medications Inactive Administered Medications - up to 3 most recent administrations Medication Order MAR Action Action Date Dose Rate Site nivolumab (OPDIVO) 240 mg in New Bag 05/11/2019 11:33 AM EDT 240 m g 248 mL/hr sodium chloride 0.9% 124 mL infusion 240 mg, Intravenous, ONCE, 1 dose, On Pili 05/11/19 at 1215, Administer over 30 Minutes, Flush line with NS after each dose, This agent is restricted to outpatient use. Is this drug being given as an outpatient? Yes documented in this encounter Care Teams Seasonal Recruiter Relationship Specialty Start Date End Date Brianne Sin MD PCP - General Family Medicine 12/24/15 02/01/[address] [place] [address] [place] [id number] documented as of this encounter
--- OUTSIDE RECORDS SUMMARY | 2022-07-17 12:38 | XMS_ITS | Encounter Summary ---
:1940 Author Organization [facility] [place] [address] Care Team Providers Name Role Phone Brianne Sin MD Primary Care Provider Reason for Visit Reason Comments Chemotherapy Cycle 6, Day 1 Nivolumab Treatment/Therapy Plan Authorization (Routine) - Closed Specialty Diagnoses / Procedures Referred By Contact Refer red To Contact Diagnoses Cancer of right lung Dell Mccauley MD [facility] [address] [place] [address] [address] [place] [address] Phone: Fax: Referral ID Status Reason Start Date Expiration Date Visits Requ ested Visits Authorized [id number] Closed 02/15/2018 02/15/2019 1 1 Encounter Details Date Type Department Care Team Description 04/25/2018 [facility] lobe of right lung [address] [place] [phone] Social History Tobacco Use Types Packs/Day Years Used Date Former Smoker Cigarettes 1 30 Quit: 10/01/19 80 Smokeless Tobacco: Never Used Alcohol Use Standard Drinks/Week Comments No 0 (1 standard drink = 0.6 oz pure alcoho l) Sex Assigned at Date Recorded Not on file documented as of this encounter Progress Notes Brenda Bush RN - 04/25/2018 8:30 AM EDT INFUSION THERAPY ADMINISTRATION NOTES DIAGNOSIS: NSCLC CYCLE # 6, Day 1 REASON FOR VISIT: Nivolumab infusion SUBJECTIVE: Parveen offers no complaints. OBJECTIVE: VSS. Weight stable. LAB DATA: WNL for today's infusion, seen by Dr. Mccauley. IV ACCESS: PIV placed by this RN. Pre administration: Chemotherapy orders independently verified for drug name, route, and dosage per patient's height, weight and BSA by BRENDA BUSH RN and On-site pharmacist. REACTIONS (DESCRIPTION, TIME, INTERVENTION AND EFFECTIVENESS) none ASSESSMENT: Parveen awake, alert and tolerated treatment well. PIV discontinued prior to dismissal. PLAN: Return to clinic per routine. documented in this encounter Plan of Treatment Upcoming Encounters Date Type Specialty Care Team Description 10/02/2022 Office Visit Dermatology Ashok Xiong MD [address] [place] [address] DERMATOLOGY [place], [place] [address] (Wo rk) documented as of this encounter Visit Diagnoses Diagnosis Malignant neoplasm of upper lobe of righ t lung Malignant neoplasm of upper lobe, bronch us or lung documented in this encounter Administered Medications Inactive Administered Medications - up to 3 most recent administrations Medication Order MAR Action Action Date Dose Rate Site nivolumab (OPDIVO) 240 mg in New Bag 04/25/2018 9:18 AM EDT 240 mg 248 mL/hr sodium chloride 0.9% 124 mL infusion 240 mg, Intravenous, ONCE, 1 dose, On 04/25/18 at 1015, Administer over 30 Minutes, Flush line with NS after each dose, This is a restricted medication. Is this being used for an FDA approved indication? Yes, This agent is restricted to outpatient use. Is this drug being given as an outpatient? Yes documented in this encounter Care Teams Laborer [employer]roleum Refinery Relationship Specialty Start Date End Date Brianne Sin MD PCP - General Family Medicine 12/24/15 02/01/[address] [place] [address] [place] [phone] documented as of this encounter
--- OUTSIDE RECORDS SUMMARY | 2022-07-17 12:38 | XMS_ITS | Encounter Summary ---
:1940 [place] [address] Care Team Providers Name Role Phone Brianne Sin MD Primary Care Provider Encounter Details Date Type Department Care Team Description 11/17/2018 Ancillary Procedure Radiology Library at Jimmy Bajwa MD [facility] HEMATOLOGY/[place] [address] DEPT. [phone] [place], [place] [address] (Wo rk) Social History Tobacco [...] 10/02/2022 Office Visit Dermatology Ashok Xiong MD [address] [place] [address] DERMATOLOGY [place], [place] [address] (Wo rk) documented as of this encounter Procedures Procedure Name Priority Date/Time Associated Diagnosis Comme nts FILM LIBRARY Routine 11/17/2018 12:00 AM Results for this STORAGE ONLY EST procedure are i n NUCLEAR MEDICINE the results section. documented in this encounter Results Film Library- Storage Only nuclear medicine (11/17/2018 12:00 AM EST) Specimen (Source) Anatomical Location Collection Method / Collectio n Time Received Time / Laterality Volume Narrative [facility] - 04/25/2019 4:09 PM EDT This exam is auto-finalizing. It's purpo se is for storage only. Jimmy Bajwa MD IMG FILM LIBRARY ORDERABLES Performing Organization Address City/State/ZIP Code Phon e Number RAD [place], [place] documented in this encounter Visit Diagnoses Not on filedocumented in this encounter Care Teams Manager Training And Development Relationship Specialty Start Date End Date Brianne Sin MD PCP - General Family Medicine 12/24/15 02/01/[address] [place] [address] [place] [phone] documented as of this encounter
--- OUTSIDE RECORDS SUMMARY | 2022-07-17 12:38 | XMS_ITS | Encounter Summary ---
:1940 Author Organization [facility] [place] [address] Care Team Providers Name Role Phone Brianne Sin MD Primary Care Provider Reason for Visit Reason Comments Lung Cancer Encounter Details Date Type Department Care Team Description 08/31/2017 Office Visit Hematology/Oncology Dell Mccauley, Mal ignant neoplasm of lower lobe of right lung; at [facility] Hypothyroidism due to drugs [address] [place], [place] [address] [phone] Social History Tobacco Use Types Packs/Day Years Used Date Former Smoker Cigarettes 30 Quit: 10/01/19 80 Smokeless Tobacco: Never Used Alcohol Use Standard Drinks/Week Comments No 0 (1 standard drink = 0.6 oz pure alcoho l) Sex Assigned at Date Recorded Not on file documented as of this encounter Last Filed Vital Signs Vital Sign Reading Time Taken Comments Blood Pressure 136/86 08/31/2017 12:38 PM EDT Pulse 69 08/31/2017 12:38 PM EDT Temperature 36.5 ??C (97.7 ??F) 08/31/2017 12:38 PM EDT Respiratory Rate 18 08/31/2017 12:38 PM EDT Oxygen Saturation 100% 08/31/2017 12:38 PM EDT Inhaled Oxygen Concentration - - Weight 66.7 kg (147 lb) 08/31/2017 12:38 PM EDT Height 173 cm (5' 8.11) 08/31/2017 12:38 PM EDT copied Body Mass Index 22.28 08/31/2017 12:38 PM EDT documented in this encounter Progress Notes Dell Mccauley MD - 08/31/2017 12:30 PM EDT Images from the original note were not included. 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 He is continuing to do well, except for his continued dry mouth and itching. The itching does wax and wane a bit and he has had it be a bit more of a problem in the last few weeks. He does have some triamcinolone cream and he will use that on a small area, such as his ankle, if it becomes particularly itchy. He knows not to use it over a large amount of skin. I also talked to him about not using it on his face. He is fine with that, and he notes a small tube will last him several years. All that being said, he is doing well. He has no diarrhea, no breathing problems. He is active, planning on going to [place] in about 2 weeks, after his next treatment. Review of systems is otherwise negative. Review of systems is otherwise completely negative with no diarrhea, no breathing problems, no appetite problems, no jaundice or other difficulties. Current Outpatient Prescriptions on File Prior to Visit Medication Sig Dispense Refill ??? calcium-vitamin D3 600 mg calcium- 400 [...] Cycle 14 nivolumab (OPDIVO) IV 240 mg EXAMINATION: PET CT MALIK SKULL BASE TO MID-THIGH 07/29/17?? CLINICAL HISTORY: Follow up lung cancer on immunotherapy. Clinically doing well ?? TECHNIQUE: Following IV injection of 03-ezcnyr-6-deoxyglucose (FDG) a standard uptake of approximately 60 [...] evidence of recurrent or metastatic lung cancer. ?? Laboratory today shows a calcium of 9.5, creatinine 1.36, which is normal for him, ALT of 105, AST of 19, ALT of 27. Thyroid status is fine. CBC shows a white count of 5.0, hemoglobin 14.1, hematocrit 43.2 and platelet count of 183,000. ASSESSMENT/PLAN: Arnold is fine today for another infusion of nivolumab. I did bring up the fact that they are looking at every 4-week dosing, although that has certainly not been proven at this point. It does offer him some hope that he may not have to continue seeing physicians every 2 weeks. We also discussed the fact that if he has side effects and goes on steroids, a full 70% of patients continue to have durable response, and I would expect that really with him, considering how well he has done. He has no evidence for any autoimmune problems today. His thyroid access if fine. I think it is all right for him to use a small amount of triamcinolone cream as needed. We will see him back in 2 weeks for his next and final nivolumab before he moves off to [place]. He will call if there are issues or problems in the interim period. 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
--- OUTSIDE RECORDS SUMMARY | 2022-07-17 12:38 | XMS_ITS | Encounter Summary ---
:1940 Author Organization [facility] [place] [address] Care Team Providers Name Role Phone Brianne Sin MD Primary Care Provider Reason for Visit Reason Comments Chemotherapy Cycle 5 Day 1 Nivolumab Treatment/Therapy Plan Authorization (Routine) - Closed Specialty Diagnoses / Procedures Referred By Contact Refer red To Contact Diagnoses Malignant neoplasm of upper lobe of right lung Jimmy Bajwa MD [facility] D R HEMATOLOGY/[place] [address] Referral ID Status Reason Start Date Expiration Date Visits Requ ested Visits Authorized [id number] Closed 03/02/2019 03/01/2020 1 1 Encounter Details Date Type Department Care Team Description 04/27/2019 [facility] [address] [place] [phone] Social History Tobacco Use Types Packs/Day Years Used Date Former Smoker Cigarettes 1 30 Quit: 10/01/19 80 Smokeless Tobacco: Never Used Alcohol Use Standard Drinks/Week Comments No 0 (1 standard drink = 0.6 oz pure alcoho l) Sex Assigned at Date Recorded Not on file documented as of this encounter Progress Notes Kim Toth RN - 04/27/2019 11:00 AM EDT INFUSION THERAPY ADMINISTRATION NOTES DIAGNOSIS: NSCLC CYCLE #5 Day 1 REASON FOR VISIT: Nivolumab SUBJECTIVE: Parveen has no complaints OBJECTIVE: VSS. LAB DATA: Reviewed with provider in clinic and WNL for treatment today. V ACCESS: PIV Pre administration: Chemotherapy orders independently verified for drug name, route, and dosage per patient's height, weight and BSA by Kim Toth RN and onsite pharmacist. REACTIONS (DESCRIPTION, TIME, INTERVENTION AND EFFECTIVENESS) none ASSESSMENT: Parveen was awake, alert and tolerated treatment well. PIV flushed with NS and discontinued prior to dismissal. PLAN: Return to clinic per routine. documented in this encounter Plan of Treatment Upcoming Encounters Date Type Specialty Care Team Description 10/02/2022 Office Visit Dermatology Ashok Xiong MD [address] DERMATOLOGY [place], [place] [address] (Wo rk) documented as of this encounter Visit Diagnoses Diagnosis Malignant neoplasm of upper lobe of righ t lung Malignant neoplasm of upper lobe, bronch us or lung documented in this encounter Administered Medications Inactive Administered Medications - up to 3 most recent administrations Medication Order MAR Action Action Date Dose Rate Site nivolumab (OPDIVO) 240 mg in New Bag 04/27/2019 11:20 AM EDT 240 m g 248 mL/hr sodium chloride 0.9% 124 mL infusion 240 mg, Intravenous, ONCE, 1 dose, On Pili 04/27/19 at 1215, Administer over 30 Minutes, Flush line with NS after each dose, This agent is restricted to outpatient use. Is this drug being given as an outpatient? Yes documented in this encounter Care Teams Belt Notcher Relationship Specialty Start Date End Date Brianne Sin MD PCP - General Family Medicine 12/24/15 02/01/[address] [place] [address] [place] [phone] documented as of this encounter
--- OUTSIDE RECORDS SUMMARY | 2022-07-17 12:38 | XMS_ITS | Encounter Summary ---
:1940 Author Organization [facility] [place] [address] Care Team Providers Name Role Phone Brianne Sin MD Primary Care Provider Reason for Visit Reason Comments Lung Cancer Encounter Details Date Type Department Care Team Description 03/01/2018 Office Visit Hematology/Oncology Dell Mccauley, Hyp othyroidism due to drugs; at [facility] Malignant neoplasm of upper lobe of righ t lung [address] [place] [address] [address], [place] [address] [phone] Social History Tobacco Use Types Packs/Day Years Used Date Former Smoker Cigarettes 1 30 Quit: 10/01/19 82 Smokeless Tobacco: Never Used Alcohol Use Standard Drinks/Week Comments No 0 (1 standard drink = 0.6 oz pure alcoho l) Sex Assigned at Date Recorded Not on file documented as of this encounter Last Filed Vital Signs Vital Sign Reading Time Taken Comments Blood Pressure 136/86 03/01/2018 12:35 PM EDT Pulse 72 03/01/2018 12:35 PM EDT Temperature 36.4 ??C (97.5 ??F) 03/01/2018 12:35 PM EDT Respiratory Rate 16 03/01/2018 12:35 PM EDT Oxygen Saturation 99% 03/01/2018 12:35 PM EDT Inhaled Oxygen Concentration - - Weight 74.8 kg (165 lb) 03/01/2018 12:35 PM EDT Height 173 cm (5' 8.11) 03/01/2018 12:35 PM EDT Body Mass Index 25.01 03/01/2018 12:35 PM EDT documented in this encounter Progress Notes Dell Mccauley MD - 03/01/2018 12:30 PM EDT Images from the original note were not included. 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 He has had a moderately severe rash especially on his chest and back and was given a trial of some prednisone when he was down in [place]. He notes it did absolutely nothing. He was seen by dermatology and they suggested a Kenalog 40 mg shot IM and he is pleased to tell me his rash is essentially gone now. He is scheduled to see them back. He asked questions today about whether it is all right to be on a steroid with him on Nivolumab and is really not a clear answer on that but we certainly do use low-dose steroids in patients with less severe autoimmune problems onthe checkpoint inhibitor so I told him I do not have any evidence that it will be harmful as far as his response to treatment goes. He is given reassurance in that regard. He tells me though he is inclined to hold off on more Kenalog unless he starts itching again and I told him that was not on reasonable. Otherwise he is in great spirits and is greatly relieved not to be bothering with a rash all the time. He is not having any diarrhea no dry mouth no nausea problems no symptoms to suggest any autoimmune problems the current time. Past medical history and social history are reviewed and unchanged from September with him now getting settled here back in [place] Current Outpatient Prescriptions on File Prior to Visit Medication Sig Dispense Refill ??? triamcinolone (KENALOG) 0.025 % Cream Apply [...] Cycle 1 nivolumab (OPDIVO) IV 240 mg EXAMINATION: PET CT MALIK SKULL BASE TO MID-THIGH 07/29/17?? CLINICAL HISTORY: Follow up lung cancer on immunotherapy. Clinically doing well ?? TECHNIQUE: Following IV injection of 11-mmsosi-6-deoxyglucose (FDG) a standard uptake of approximately 60 [...] recurrent or metastatic lung cancer. ?? Laboratory is reviewed. White count 6.32 hemoglobin 13.4 hematocrit 41.4 platelet count 191 CMP shows normal electrolytes creatinine of 1.44 bilirubin of 0.34 AST 15 ALT 23 TSH 3.85 T4 is 7.2 Assessment/plan: Parveen is doing exceptionally well and is very pleased with his rash improving and the itching goingaway. He is much more comfortable. I told him he can go ahead and repeat the shot if needed but do not have any problem with him holding off until he has symptomatic problems. We do try to keep steroids to a minimum in patients on immune therapies but there is really no accurate data that would suggest there is a problem with steroids on patients responding to checkpoint inhibitors and in fact many patients to go off treatment because of side effects that are on high-dose steroids continue to respond for years. That being said I told him he should be reassured that things are fine. We will see him back in 2 weeks for another infusion sooner if there is issues in the interim. documented in this encounter Plan of Treatment Upcoming Encounters Date Type Specialty Care Team Description 10/02/2022 Office Visit Dermatology Ashok Xiong MD [address] [facility] DERMATOLOGY [place], [place] [address] (Wo rk) documented as of this encounter Procedures Procedure Name Priority Date/Time Associated Diagnosis Comme nts LAB SCAN 03/01/2018 12:00 AM Results for this EDT procedure are i n the results section . documented in this encounter Results SCAN DOC: LAB (03/01/2018 12:00 AM EDT) Narrative 03/01/2018 12:00 AM EDT This result has an attachment that is no t available. Ordered by an unspecified provider. 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
--- OUTSIDE RECORDS SUMMARY | 2022-07-17 12:38 | XMS_ITS | Encounter Summary ---
:1940 Author Organization [facility] [place] [address] Care Team Providers Name Role Phone Brianne Sin MD Primary Care Provider Reason for Visit Reason Comments Chemotherapy Cycle 5 Day 1 Nivolumab Treatment/Therapy Plan Authorization (Routine) - Closed Specialty Diagnoses / Procedures Referred By Contact Refer red To Contact Diagnoses Cancer of right lung Dell Mccauley MD [facility] Hem Onc Office [address] [place] [address] [place] [address] Phone: Fax: Referral ID Status Reason Start Date Expiration Date Visits Requ ested Visits Authorized [id number] Closed 02/15/2018 02/15/2019 1 1 Encounter Details Date Type Department Care Team Description 04/12/2018 [facility] of right lung [address] [place] [phone] Social History Tobacco Use Types Packs/Day Years Used Date Former Smoker Cigarettes 1 30 Quit: 10/01/19 80 Smokeless Tobacco: Never Used Alcohol Use Standard Drinks/Week Comments No 0 (1 standard drink = 0.6 oz pure alcoho l) Sex Assigned at Date Recorded Not on file documented as of this encounter Progress Notes Kim Toth RN - 04/12/2018 1:00 PM EDT INFUSION THERAPY ADMINISTRATION NOTES DIAGNOSIS: NSCLC CYCLE # 5, Day 1 REASON FOR VISIT: Nivolumab infusion SUBJECTIVE: Parveen offers no complaints. OBJECTIVE: VSS. Weight stable. LAB DATA: WNL for today's infusion IV ACCESS: PIV Pre administration: Chemotherapy orders independently verified for drug name, route, and dosage per patient's height, weight and BSA by Georgina Toth RN and On-site pharmacist. REACTIONS (DESCRIPTION, TIME, INTERVENTION AND EFFECTIVENESS) none ASSESSMENT: Parveen awake, alert and tolerated treatment well. PIV discontinued prior to dismissal. PLAN: Return to clinic per routine. documented in this encounter Plan of Treatment Upcoming Encounters Date Type Specialty Care Team Description 10/02/2022 Office Visit Dermatology Ashok Xiong MD [address] [facility] DERMATOLOGY [place], [place] [address] (Wo rk) documented as of this encounter Visit Diagnoses Diagnosis Malignant neoplasm of upper lobe of righ t lung Malignant neoplasm of upper lobe, bronch us or lung documented in this encounter Administered Medications Inactive Administered Medications - up to 3 most recent administrations Medication Order MAR Action Action Date Dose Rate Site nivolumab (OPDIVO) 240 mg in New Bag 04/12/2018 1:41 PM EDT 240 mg 248 mL/hr sodium chloride 0.9% 124 mL infusion 240 mg, Intravenous, ONCE, 1 dose, On Wed04/12/18 at 1430, Administer over 30 Minutes, Flush line with NS after each dose, This is a restricted medication. Is this being used for an FDA approved indication? Yes, This agent is restricted to outpatient use. Is this drug being given as an outpatient? Yes documented in this encounter Care Teams Side Framer Relationship Specialty Start Date End Date Brianne Sin MD PCP - General Family Medicine 12/24/15 02/01/[address] [place] [address] [place] [phone] documented as of this encounter
--- OUTSIDE RECORDS SUMMARY | 2022-07-17 12:38 | XMS_ITS | Encounter Summary ---
:1940 [place] [address] Care Team Providers Name Role Phone Brianne Sin MD Primary Care Provider Encounter Details Date Type Department Care Team Description 04/03/2019 Orders Only Hematology and Oncology at Jimmy Alonso MD [facility] Domo sahu HEMATOLOGY/[place] [address] DEPT. [phone] [place], [place] [address] (Wo rk) Social History Tobacco [...] Office Visit Dermatology Ashok Xiong MD [address] [place] [address] DERMATOLOGY [place], [place] [address] (Wo rk) documented as of this encounter Visit Diagnoses Not on filedocumented in this encounter Care Teams Carpenter Mine Relationship Specialty Start Date End Date Brianne Sin MD PCP - General Family Medicine 12/24/15 02/01/[address] [place] [address] [place] [phone] documented as of this encounter
--- OUTSIDE RECORDS SUMMARY | 2022-07-17 12:38 | XMS_ITS | Encounter Summary ---
:1940 Author Organization [place] [address] Care Team Providers Name Role Phone Brianne Sin MD Primary Care Provider Reason for Referral Diagnostic Test (Routine) - Closed Specialty Diagnoses / Procedures Referred By Contact Refer red To Contact Radiology Diagnoses Malignant neoplasm of right lung, unspecified part of lung Jimmy Bajwa MD [facility] Rad Nuclear Med Procedures PET CT Malik Skull Base to Mid-Thigh [facility] HEMATOLOGY/[place] [address] [place] [address] Referral ID Status Reason Start Date Expiration Date Visits V isits Requested Authorized [id number] Closed Specialty 03/30/2019 03/29/2020 1 1 Service Requested Reason for Visit Diagnostic Test (Routine) - Closed Specialty Diagnoses / Procedures Referred By Contact Refer red To Contact Radiology Diagnoses Malignant neoplasm of right lung, unspecified part of lung Jimmy Bajwa MD [facility] Rad Nuclear Med Procedures PET CT Malik Skull Base to Mid-Thigh [facility] HEMATOLOGY/[place] [address] DEPT. [place] [id number] Referral ID Status Reason Start Date Expiration Date Visits V isits Requested Authorized [id number] Closed Specialty 03/30/2019 03/29/2020 1 1 Service Requested Encounter Details Date Type Department Care Team Description 04/21/2019 Hospital Encounter Nuclear Medicine at Jimmy Bajwa, Malignant neoplasm Jenny Landaverde MD of right lung, [facility] unspecifi ed part of [address] [place], [place] HEMATOLOGY/ONCOL [address] [facility] DEPT. [phone] [place] [address] Social History Tobacco Use Types Packs/Day Years [...] takes 900 mg TID calcium-vitamin D3 600 Take by mouth. 0 mg calcium- 400 unit Tablet Clobetasol 0.05 % Murray, SPRAY TWICE A DAY 2 0 12/14/2018 04/27/2019 Non-Aerosol NEEDED FOR ITCH X 28 DAYS AND THEN OFF . REPEAT NEEDED predniSONE (DELTASONE) 5 Take 4 tablets by 120 tablet 5 05/0 12/201806/01/2019 mg Tablet mouth daily. Tape as directed ondansetron (ZOFRAN) 8 Take 8 mg by mouth 0 04/27/2019 mg Tablet every 8 hours as needed for Nausea. omeprazole (PRILOSEC) 10 Take 40 mg by mouth 0 09/04/2021 mg Capsule, Delayed daily. Release(E.C.) triamcinolone (KENALOG) Apply topically 2 0 06/01/2019 0.025 % Cream times daily. triamcinolone Apply topically 3 0 04/0 01/2022 (ARISTOCORT) 0.5 % Cream times daily as needed. METOPROLOL SUCCINATE Take 25 mg by mouth 0 09/04/2021 ORAL daily as needed. documented as of this encounter Plan of Treatment Upcoming Encounters Date Type Specialty Care Team Description 10/02/2022 Office Visit Dermatology Ashok Xiong MD [address] [facility] DERMATOLOGY [place], [place] [address] (Wo rk) documented as of this encounter Procedures Procedure Name Priority Date/Time Associated Diagnosis Comme nts NM MALIK PET CT Routine 04/21/2019 1:07 PM Malignant neopl asm Results for this SKULL BASE TO EDT of right lung, procedure ar e in MID-THIGH unspecified part of the resu lts lung section. documented in this encounter Results PET CT Malik Skull Base to Mid-Thigh (04/21/2019 1:07 PM EDT) Anatomical Region Laterality Modality Positron Emission To mography (PET) Specimen (Source) Anatomical Location Collection Method / Collectio n Time Received Time / Laterality Volume Impressions 04/21/2019 3:23 PM EDT Resolved pleural effusion on the left. Previously noted FDG uptake along the left basilar pleura has resolved. Decreased small pleural effusion on the right. No metabolically active malignancy ident ified at this time point. Thank you for letting us participate in the care of this patient. For questions regarding this report, please contact e number below. ? Electronically signed by: BEVERLY Rodriguez [facility], [facility] ([phone]), at 04/21/2019 3:23 PM Narrative 04/21/2019 3:23 PM EDT EXAMINATION: PET CT MALIK SKULL BASE TO MID-THIGH CLINICAL HISTORY: lung cancer TECHNIQUE: Following IV injection of 18- qpapqg-3-vyfelxfupluu (FDG) a standard uptake of approximately 60 minutes, a no ncontrast CT scan followed by a PET scan were acquired from the base of the skull to mid thighs. The noncontrast CT was used for anatomic localization and photo n attenuation correction of the PET scan. Blood glucose level: 90 (mg/dL) FDG dose: 14.5 mCi COMPARISON: September 02, 2018. FINDINGS: HEAD/NECK: Normal activity in all soft tissue regio ns of the neck and visualized lower head. CHEST: Normal activity in all soft tissue regio ns. Pleural effusion on the left has resolve d. Small pleural effusion on the right is decreased in comparison to the prior exam. Posttreatment changes in the right lower lung are stable. ABDOMEN/PELVIS: Normal activity in all soft tissue regio ns. Incidentally noted diffuse bowel uptake. SKELETON/EXTREMITIES: No change in activity in all regions of the axial and visualized appendicular skeleton. Small focus of uptake in the l ateral aspect of the left clavicle is stable. Procedure Note Cyndi Perez MD - 2018 EXAMINATION: PET CT MALIK SKULL BASE TO MID-THIGH CLINICAL HISTORY: lung cancer TECHNIQUE: Following IV injection of 18- pwtavs-0-suhiglldpzyu (FDG) a standard uptake of approximately 60 minutes, a no ncontrast CT scan followed by a PET scan were acquired from the base of the skull to mid thighs. The noncontrast CT was used for anatomic localization and photo n attenuation correction of the PET scan. Blood glucose level: 90 (mg/dL) FDG dose: 14.5 mCi COMPARISON: September 02, 2018. FINDINGS: HEAD/NECK: Normal activity in all soft tissue regio ns of the neck and visualized lower head. CHEST: Normal activity in all soft tissue regio ns. Pleural effusion on the left has resolve d. Small pleural effusion on the right is decreased in comparison to the prior exam. Posttreatment changes in the right lower lung are stable. ABDOMEN/PELVIS: Normal activity in all soft tissue regio ns. Incidentally noted diffuse bowel uptake. SKELETON/EXTREMITIES: No change in activity in all regions of the axial and visualized appendicular skeleton. Small focus of uptake in the l ateral aspect of the left clavicle is stable. IMPRESSION Resolved pleural effusion on the left. P reviously noted FDG uptake along the left basilar pleura has resolved. Decreased small pleural effusion on the right. No metabolically active malignancy ident ified at this time point. Thank you for letting us participate in the care of this patient. For questions regarding this report, please contact e number below. Jimmy Bajwa MD IMG PET ORDERABLES documented in this encounter Visit Diagnoses Diagnosis Malignant neoplasm of right lung, unspec ified part of lung documented in this encounter Administered Medications Inactive Administered Medications - up to 3 most recent administrations Medication Order MAR Action Action Date Dose Rate Site fludeoxyglucose (F-18) FDG Given 04/21/2019 11:34 AM EDT 14.5 mC i injection 14.5 mCi 14.5 mCi, Intravenous, ONCE PRN, 1 dose, Starting on Wed04/21/19 at 1134, Until Wed04/21/19 at 1134, Per Protocol, Routine documented in this encounter Care Teams Emery Wheel Worker Relationship Specialty Start Date End Date Brianne Sin MD PCP - General Family Medicine 12/24/15 02/01/[address] [place] [address] [place] [address] documented as of this encounter
--- OUTSIDE RECORDS SUMMARY | 2022-07-17 12:38 | XMS_ITS | Encounter Summary ---
:1940 Author Organization [facility] [place] [address] Care Team Providers Name Role Phone Brianne Sin MD Primary Care Provider Reason for Visit Reason Comments Chemotherapy Cycle 4 Day 1 Nivolumab Treatment/Therapy Plan Authorization (Routine) - Closed Specialty Diagnoses / Procedures Referred By Contact Refer red To Contact Diagnoses Cancer of right lung Dell Mccauley MD [facility] Hem Onc Office [address] [place] [phone] [place] [address] Phone: Fax: Referral ID Status Reason Start Date Expiration Date Visits Requ ested Visits Authorized [id number] Closed 02/15/2018 02/15/2019 1 1 Encounter Details Date Type Department Care Team Description 03/29/2018 [facility] of right lung [address] [place] [phone] Social History Tobacco Use Types [...] Sign Reading Time Taken Comments Blood Pressure 138/76 03/29/2018 1:27 PM EDT Pulse 75 03/29/2018 1:27 PM EDT Temperature 36.7 ??C (98 ??F) 03/29/2018 1:27 PM EDT Respiratory Rate 18 03/29/2018 1:27 PM EDT Oxygen Saturation 100% 03/29/2018 1:27 PM EDT Inhaled Oxygen Concentration - - Weight 73.9 kg (162 lb 14.4 oz) 03/29/2018 1:27 PM EDT Height 173 cm (5' 8.11) 03/29/2018 1:27 PM EDT Body Mass Index 24.69 03/29/2018 1:27 PM EDT documented in this encounter Progress Notes Kim Toth RN - 03/29/2018 2:00 PM EDT INFUSION THERAPY ADMINISTRATION NOTES DIAGNOSIS: NSCLC CYCLE # 4, Day 1 REASON FOR VISIT: Nivolumab infusion SUBJECTIVE: Arnold offers no complaints. OBJECTIVE: VSS. Weight stable. LAB DATA: WNL for today's infusion IV ACCESS: PIV Pre administration: Chemotherapy orders independently verified for drug name, route, and dosage per patient's height, weight and BSA by Georgina Toth RN and On-site pharmacist. REACTIONS (DESCRIPTION, TIME, INTERVENTION AND EFFECTIVENESS) none ASSESSMENT: Arngeetha awake, alert and tolerated treatment well. PIV discontinued prior to dismissal. PLAN: Return to clinic per routine. documented in this encounter Plan of Treatment Upcoming Encounters Date Type Specialty Care Team Description 10/02/2022 Office Visit Dermatology Ashok Xiong MD [address] [facility] DERMATOLOGY [place], [place] [address] (Wo rk) documented as of this encounter Visit Diagnoses Diagnosis Malignant neoplasm of upper lobe of righ t lung Malignant neoplasm of upper lobe, bronch us or lung documented in this encounter Administered Medications Inactive Administered Medications - up to 3 most recent administrations Medication Order MAR Action Action Date Dose Rate Site nivolumab (OPDIVO) 240 mg in New Bag 03/29/2018 1:53 PM EDT 240 mg 248 mL/hr sodium chloride 0.9% 124 mL infusion 240 mg, Intravenous, ONCE, 1 dose, On Wed03/29/18 at 1445, Administer over 30 Minutes, Flush line with NS after each dose, This is a restricted medication. Is this being used for an FDA approved indication? Yes, This agent is restricted to outpatient use. Is this drug being given as an outpatient? Yes documented in this encounter Care Teams Supply Clerk Relationship Specialty Start Date End Date Brianne Sin MD PCP - General Family Medicine 12/24/15 02/01/[address] [place] [address] [place] [phone] documented as of this encounter
--- OUTSIDE RECORDS SUMMARY | 2022-07-17 12:38 | XMS_ITS | Encounter Summary ---
:1940 [place] [address] Care Team Providers Name Role Phone Brianne Sin MD Primary Care Provider Encounter Details Date Type Department Care Team Description 04/27/2019 Orders Only Hematology/Oncology Rowan Bajwa MD Malignant neoplasm of right lung, unspec ified part of lung; at [facility] MEDICAL Hypothyroidism due to drugs [address] [place] [address] [address] [place] HEMATOLOGY/[place] [address] [place] DEPT. [phone] [place], [place] [address] Social History Tobacco Use Types [...] Ashok Xiong MD [address] 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
--- OUTSIDE RECORDS SUMMARY | 2022-07-17 12:38 | XMS_ITS | Encounter Summary ---
:1940 Author Organization [facility] [place] [address] Care Team Providers Name Role Phone Brianne Sin MD Primary Care Provider Reason for Visit Reason Comments Chemotherapy Nivolumab, Cycle 2, Day 1 Treatment/Therapy Plan Authorization (Routine) - Closed Specialty Diagnoses / Procedures Referred By Contact Refer red To Contact Diagnoses Malignant neoplasm of upper lobe of right lung Jimmy Bajwa MD [facility] D R HEMATOLOGY/[place] [address] Referral ID Status Reason Start Date Expiration Date Visits Requ ested Visits Authorized [id number] Closed 03/02/2019 03/01/2020 1 1 Encounter Details Date Type Department Care Team Description 03/17/2019 Infusion Hematology Oncology at [facility] neoplasm of upper [facility] lobe of right lung [address] [place] [phone] Social History Tobacco Use Types [...] Sign Reading Time Taken Comments Blood Pressure 131/77 03/17/2019 2:17 PM EDT Pulse 79 03/17/2019 2:17 PM EDT Temperature 36.6 ??C (97.9 ??F) 03/17/2019 2:17 PM EDT Respiratory Rate 20 03/17/2019 2:17 PM EDT Oxygen Saturation 98% 03/17/2019 2:17 PM EDT Inhaled Oxygen Concentration - - Weight 67 kg (147 lb 12.8 oz) 03/17/2019 2:17 PM EDT Height 173 cm (5' 8.11) 03/17/2019 2:17 PM EDT copied Body Mass Index 22.4 03/17/2019 2:17 PM EDT documented in this encounter Progress Notes Paige Menchaca RN - 03/17/2019 2:00 PM EDT INFUSION THERAPY ADMINISTRATION NOTES DIAGNOSIS: NSCLC CYCLE #2 Day 1 (on-going from therapy in [place]) REASON FOR VISIT: Nivolumab SUBJECTIVE: Parveen explains that he is on prednisone for mild colitis and itching. OBJECTIVE: VSS. LAB DATA: Reviewed with provider in clinic and WNL for treatment today. V ACCESS: PIV Pre administration: Chemotherapy orders independently verified for drug name, route, and dosage per patient's height, weight and BSA by PAIGE MENCHACA RN and onsite pharmacist. REACTIONS (DESCRIPTION, TIME, INTERVENTION AND EFFECTIVENESS) none ASSESSMENT: Parveen was awake, alert and tolerated treatment well. PIV flushed with NS and discontinued prior to dismissal. PLAN: Return to clinic per routine. documented in this encounter Plan of Treatment Upcoming Encounters Date Type Specialty Care Team Description 10/02/2022 Office Visit Dermatology Ashok Xiong MD [address] [place] [address] DERMATOLOGY [place], [place] [address] (Wo rk) documented as of this encounter Visit Diagnoses Diagnosis Malignant neoplasm of upper lobe of righ t lung Malignant neoplasm of upper lobe, bronch us or lung documented in this encounter Administered Medications Inactive Administered Medications - up to 3 most recent administrations Medication Order MAR Action Action Date Dose Rate Site nivolumab (OPDIVO) 240 mg in New Bag 03/17/2019 3:17 PM EDT 240 mg 248 mL/hr sodium chloride 0.9% 124 mL infusion 240 mg, Intravenous, ONCE, 1 dose, On Wed03/17/19 at 1600, Administer over 30 Minutes, Flush line with NS after each dose, This agent is restricted to outpatient use. Is this drug being given as an outpatient? Yes documented in this encounter Care Teams Cleat Blanker Relationship Specialty Start Date End Date Brianne Sin MD PCP - General Family Medicine 12/24/15 02/01/[address] [place] [address] [place] [address] documented as of this encounter
--- OUTSIDE RECORDS SUMMARY | 2022-07-17 12:38 | XMS_ITS | Encounter Summary ---
:1940 Author Organization [place] [address] Care Team Providers Name Role Phone Brianne Sin MD Primary Care Provider Encounter Details Date Type Department Care Team Description 02/15/2018 Office Visit Hematology/Oncology Dell Mccauley, Mal ignant neoplasm of lower lobe of right lung; at [facility] Primary malignant neoplasm of right uppe r lobe of lung; [address] [place] [address] DR Hypothyroidism [place] [address] [phone] Social History Tobacco Use Types Packs/Day Years Used Date Former Smoker Cigarettes 30 Quit: 10/01/19 82 Smokeless Tobacco: Never Used Alcohol Use Standard Drinks/Week Comments No 0 (1 standard drink = 0.6 oz pure alcoho l) Sex Assigned at Date Recorded Not on file documented as of this encounter Last Filed Vital Signs Vital Sign Reading Time Taken Comments Blood Pressure 146/78 02/15/2018 1:00 PM EDT Pulse 64 02/15/2018 1:00 PM EDT Temperature 36.3 ??C (97.3 ??F) 02/15/2018 1:00 PM EDT Respiratory Rate 16 02/15/2018 1:00 PM EDT Oxygen Saturation 100% 02/15/2018 1:00 PM EDT Inhaled Oxygen Concentration - - Weight 72.4 kg (159 lb 9.6 oz) 02/15/2018 1:00 PM EDT Height 173 cm (5' 8.11) 02/15/2018 1:00 PM EDT copied Body Mass Index 24.19 02/15/2018 1:00 PM EDT documented in this encounter Progress Notes Dell Mccauley MD - 02/15/2018 1:00 PM EDT Images from the original note were not included. 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 He had had a complete response and we last saw him in September at which point in time he went to [place] over the winter. He continued on the Nivolumab there. We did dosome radiology right prior to him going and it showed a continued complete response. While in [place] he had progressively worsening problems as far as itching goes. He did try a course of steroids sapna Medrol Dosepak did not impact this itching at all. Topical triamcinolone cream is a bit helpful but there is a large area on his back and arms that needs to be treated. The oncologist there did put him on gabapentin which helps somewhat although he needs to be fairly faithful on taking it. He has a relative in medical school and was told to ask about taking emend for itching. It is not an FDA approved indication and I do think he might have some trouble getting it paid for. After discussions we decided to continue on with the gabapentin. His breathing has been fine and he has no respiratory symptoms at all. He is not having diarrhea. Does have occasional dry mouth. Review of systems is otherwise completely negative with no diarrhea, no breathing problems, no appetite problems, no jaundice or other difficulties. Past medical history and social history are reviewed and unchanged from September with him now getting settled here back in [place] Current Outpatient Prescriptions on File Prior to [...] Cycle 16 nivolumab (OPDIVO) IV 240 mg EXAMINATION: PET CT MALIK SKULL BASE TO MID-THIGH 07/29/17?? CLINICAL HISTORY: Follow up lung cancer on immunotherapy. Clinically doing well ?? TECHNIQUE: Following IV injection of 65-anttso-6-deoxyglucose (FDG) a standard uptake of approximately 60 [...] cancer. ?? Laboratory is reviewed. White count 4.95 and 113.3 hematocrit 40.2 platelet count 183. CMP now showsa typical creatinine for him at 1.37 bilirubin is 0.61 alkaline phosphate 108 his AST is 22 ALT 26 TSH 3.30 and T4 7.4 Assessment/plan: Parveen is tolerating the current checkpoint inhibitor quite well but has moderate problems with rashand itching. Symptoms are not bad enough to stop it but certainly a nuisance for him. Fortunately heis getting some relief from the gabapentin. I do think if we placed him on high-dose steroids he could probably get the rash resolved with would prefer not to do that especially in view of how well things are going. We talked about doing a restaging scan perhaps mid summer. He has had several PET scans that have shown complete responses and with no new symptoms I think it is likely he is continuing to do well. Certainly one would be reluctant to go off this therapy considering how well it is working. We will go ahead with his treatment today and see him back in 2 weeks with plans on further treatment and lab prior to that visit. He will call if there is issues or problems in the interim. documented in this encounter Plan of Treatment Upcoming Encounters Date Type Specialty Care Team Description 10/02/2022 Office Visit Dermatology Ashok Xiong MD [address] DERMATOLOGY [place], [place] [address] (Wo rk) documented as of this encounter Procedures Procedure Name Priority Date/Time Associated Diagnosis Comme nts LAB SCAN 02/15/2018 12:00 AM Results for this EDT procedure are i n the results section . documented in this encounter Results SCAN DOC: LAB (02/15/2018 12:00 AM EDT) Narrative 02/15/2018 12:00 AM EDT This result has an attachment that is no t available. Ordered by an unspecified provider. 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
--- OUTSIDE RECORDS SUMMARY | 2022-07-17 12:38 | XMS_ITS | Encounter Summary ---
:1940 Author Organization [facility] [address] Care Team Providers Name Role Phone Brianne Sin MD Primary Care Provider Reason for Visit Reason Comments Lung Cancer Encounter Details Date Type Department Care Team Description 04/25/2018 Office Visit Hematology/Oncology Dell Mccauley, Mal ignant neoplasm of upper lobe of right lung; at [facility] Hypothyroidism due to drugs [address] [address], [place] [address] [phone] Social History Tobacco Use Types Packs/Day Years Used Date Former Smoker Cigarettes 1 30 Quit: 10/01/19 80 Smokeless Tobacco: Never Used Alcohol Use Standard Drinks/Week Comments No 0 (1 standard drink = 0.6 oz pure alcoho l) Sex Assigned at Date Recorded Not on file documented as of this encounter Last Filed Vital Signs Vital Sign Reading Time Taken Comments Blood Pressure 149/99 04/25/2018 8:11 AM EDT Pulse 67 04/25/2018 8:11 AM EDT Temperature 36 ??C (96.8 ??F) 04/25/2018 8:11 AM EDT Respiratory Rate 16 04/25/2018 8:11 AM EDT Oxygen Saturation 99% 04/25/2018 8:11 AM EDT Inhaled Oxygen Concentration - - Weight 75.3 kg (166 lb) 04/25/2018 8:11 AM EDT Height 173 cm (5' 8.11) 04/25/2018 8:11 AM EDT copied Body Mass Index 25.16 04/25/2018 8:11 AM EDT documented in this encounter Progress Notes Dell Mccauley MD - 04/25/2018 8:00 AM EDT Images from the original note were not included. 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 The patient started Nivolumab May 07, 2016 with complete response Subjective: Parveen comes in today for consideration of further infusional Nivolumab in the treatment of his recurrent non-small cell lung cancer. He has been on treatment now for a full 2 years and we have had discussions about whether he would like to continue the therapy or stop. There is no actual data on stopping although many oncologists to stop after 2 years and complete responders which is Parveen's situation. That being said he is most comfortable with continuing treatment until definitive data is out inregards to stopping treatment. He continues to have some toxicity with a dry mouth and some itchy dry skin with a subclinical rash on occasion. He uses the Rhoton for the itching and that seems to helpkeep that under control and is no longer really taking any steroids. A Kenalog shot did help his symptoms considerably but on his last visit to the varnish melter he decided he was comfortable without it. Otherwise though review of systems is negative with no diarrhea no GI symptoms no breathing problems at all. His weight is gone up to his pretreatment weight and he is quite happy with that. He has no limits on his performance status at this point. Past medical history and social history are reviewed and unchanged from from 2 weeks ago except for the addition of metoprolol. Current Outpatient Prescriptions on File Prior to Visit Medication Sig Dispense Refill ??? doxepin (SINEQUAN) 25 mg Capsule TAKE 1-2 CAPSULES BY MOUTH AT BEDTIME. 1 ??? triamcinolone (KENALOG) 0.025 % Cream [...] Cycle 5 nivolumab (OPDIVO) IV 240 mg EXAMINATION: PET CT MALIK SKULL BASE TO MID-THIGH 07/29/17?? CLINICAL HISTORY: Follow up lung cancer on immunotherapy. Clinically doing well ?? TECHNIQUE: Following IV injection of 78-bazpwz-6-deoxyglucose (FDG) a standard uptake of approximately 60 [...] recurrent or metastatic lung cancer. ?? Laboratory studies today show white count of 5.64 hemoglobin 14.3 hematocrit 43.8 and platelet countof 182. Chemistries today show normal electrolytes creatinine of 1.46 which is his baseline AST of 16 ALT of 30 TSH of 6.57 with a T4 of 7.8. Assessment/plan: Parveen is doing well and continues to tolerate the Nivolumab with only some minor secondary effects from the treatment consisting of itching and an intermittent mild rash. I think his dry mouth is probably also secondary to the treatment. He is most comfortable with continuing the treatment and without any data to firmly establish the need to stop this treatment in complete responders I would favor continuing him on treatment at this time as well. We will go ahead with that today and see him back in2 weeks with lab including thyroid studies. They have fluctuated a bit but so far he does not have any significant hypothyroidism. He will call if there is issues or problems in the interim. 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
--- OUTSIDE RECORDS SUMMARY | 2022-07-17 12:38 | XMS_ITS | Encounter Summary ---
:1940 Author Organization [facility] [address] Care Team Providers Name Role Phone Brianne Sin MD Primary Care Provider Reason for Visit Reason Comments Suture / Staple Removal Encounter Details Date Type Department Care Team Description 04/07/2018 Office Visit Dermatology at [facility] Epiderm al cyst; Terri JANE Visit for suture removal [address] [facility] [place] DERMATOLOGY [place], [place] [phone] Social History Tobacco Use Types Packs/Day Years Used Date Former Smoker Cigarettes 1 30 Quit: 10/01/19 80 Smokeless Tobacco: Never Used Alcohol Use Standard Drinks/Week Comments No 0 (1 standard drink = 0.6 oz pure alcoho l) Sex Assigned at Date Recorded Not on file documented as of this encounter Progress Notes Ashok Xiong MD - 04/07/2018 1:45 PM EDT Problem: Follow-up for suture removal and biopsy results Parveen follows up and had an unremarkable postoperative course. The biopsy did come back confirming follicular cyst upper central back. Physical examination shows excellent healing of the site. There is minimal erythema no tenderness good wound edge apposition is noted. Assessment plan: Status post excision follicular cyst upper central back 1. After obtaining informed consent sutures removed, 2. March wound care instructions 3. Return to clinic here in 1 year for repeat check. CC: Brianne Sin MD Note: The patient's nighttime pruritus is controlled with 3 gabapentin and 25 mg of doxepin doxepin at night.. This limits his nighttime pruritus and he does not have too much of an issue during the daytime. Continue Opdivo for his history of metastatic lung CA per Dr. Ruth. documented in this encounter Plan of Treatment Upcoming Encounters Date Type Specialty Care Team Description 10/02/2022 Office Visit Dermatology Ashok Xiong MD [address] [place] [address] DERMATOLOGY [place], [place] [address] (Wo rk) documented as of this encounter Visit Diagnoses Diagnosis Epidermal cyst Sebaceous cyst Visit for suture removal Encounter for removal of sutures documented in this encounter Care Teams Cutter Banana Room Relationship Specialty Start Date End Date Brianne Sin MD PCP - General Family Medicine 12/24/15 02/01/[address] [place] [address] [place] [phone] documented as of this encounter
--- OUTSIDE RECORDS SUMMARY | 2022-07-17 12:38 | XMS_ITS | Encounter Summary ---
:1940 Author Organization [facility] [place] [address] Care Team Providers Name Role Phone Brianne Bobo MD Primary Care Provider Reason for Visit Reason Comments Procedure Encounter Details Date Type Department Care Team Description 03/24/2018 Procedure visit Dermatology at [facility], Nataliya ermal cyst Flora [address] [facility] [place] [address] [facility] DERMATOLOGY [place], [place] [phone] Social History Tobacco Use Types Packs/Day Years Used Date Former Smoker Cigarettes 11 30 Quit: 10/01/19 80 Smokeless Tobacco: Never Used Alcohol Use Standard Drinks/Week Comments No 0 (1 standard drink = 0.6 oz pure alcoho l) Sex Assigned at Date Recorded Not on file documented as of this encounter Progress Notes Ashok Xiong MD - 03/24/2018 2:15 PM EDT Clinical impression: Follicular cyst upper central back Size: 7 mm Deep suture: 4-0 Vicryl Suture: 4-0 Ethilon Follow-up: In 10-14 days for suture removal and biopsy results Indications for surgery, possible adverse outcomes, and activity restrictions discussed. Informed verbal consent was obtained. Skin surface was prepared with 4% Hibiclens and draped in the usual sterile manner. Local anesthesiawith 1% lidocaine, 1/100,000 epinephrine and 0.1 mEq/mL bicarbonate. Using a 15 blade, an ellipticalexcision was carried out over the top of the lesion. Undermining performed peripherally. Hemostasis with electrodesiccation. Layered closure performed, with specimen to pathology. Wound dressed, wound care reviewed. End length of suture line was 1.5 cm Follow-up in 10-14 days for suture removal biopsy results CC: Brianne Bobo MD documented in this encounter Plan of Treatment Upcoming Encounters Date Type Specialty Care Team Description 10/02/2022 Office Visit Dermatology Ashok Xiong MD [address] [facility] DERMATOLOGY [place], [place] [address] (Wo rk) documented as of this encounter Visit Diagnoses Diagnosis Epidermal cyst Sebaceous cyst documented in this encounter Care Teams Materials Management Clerk Relationship Specialty Start Date End Date Brianne Bobo MD PCP - General Family Medicine 12/24/15 02/01/[address] [place] [address] [place] [phone] documented as of this encounter
--- OUTSIDE RECORDS SUMMARY | 2022-07-17 12:38 | XMS_ITS | Encounter Summary ---
:1940 Author Organization [place] [address] Care Team Providers Name Role Phone Brianne Sin MD Primary Care Provider Reason for Visit Reason Comments Follow-up Skin Check Encounter Details Date Type Department Care Team Description 03/10/2019 Office Visit Dermatology at [facility] Epiderm al cyst; Terri JANE Seborrheic keratosis; [address] [facility] [address] [facility] [place] DERMATOLOGY [place], [place] [phone] Social History Tobacco Use Types Packs/Day Years Used Date Former Smoker Cigarettes 1 30 Quit: 10/01/19 80 Smokeless Tobacco: Never Used Alcohol Use Standard Drinks/Week Comments No 0 (1 standard drink = 0.6 oz pure alcoho l) Sex Assigned at Date Recorded Not on file documented as of this encounter Progress Notes Ashok Xiong MD - 03/10/2019 4:45 PM EDT Problem: 1. Yearly skin checkup 2. History of multiple seborrheic keratoses 3. History of generalized pruritus associated with his ongoing oncologic therapy 4. History of past actinic keratosis, treated with liquid nitrogen and also with 5-FU in the past [facility] Parveen follows up and is here for his yearly skin checkup. He is noted a new lesion near his left lateral eyebrow I like me to check the his torso. He is now on prednisone and his nighttime pruritus iscontrolled with this is not needing to take doxepin or gabapentin. He remains in on Opdivo for his history of metastatic lung CA. Physical examination reveals a pleasant 78-year-old gentleman who has a follicular cyst in the left lateral baptist. He has several seborrheic keratoses on his back and very early stages on the temples and right lateral cheek. There is no evidence of any malignant or premalignant lesions on careful examination today of the head and the neck the chest the back the hands the arms informs thighs and the calves Assessment and plan: Benign skin examination 1. Patient reassured about today's benign skin examination 2. No treatment necessary 3. Return to clinic here in 1 year for repeat check Seborrheic keratoses/follicular cyst left lateral baptist 1. Could consider LN 2/ shave biopsy CC: Brianne Sin MD documented in this encounter Plan of Treatment Upcoming Encounters Date Type Specialty Care Team Description 10/02/2022 Office Visit Dermatology Ashok Xiong MD [address] [place] [address] DERMATOLOGY [place], [place] [address] (Wo rk) documented as of this encounter Visit Diagnoses Diagnosis Epidermal cyst Sebaceous cyst Seborrheic keratosis Other seborrheic keratosis Pruritus Unspecified pruritic disorder documented in this encounter Care Teams Colored Liquid Plastic Applier Relationship Specialty Start Date End Date Brianne Sin MD PCP - General Family Medicine 12/24/15 02/01/[address] [place] [address] [place] [phone] documented as of this encounter
--- OUTSIDE RECORDS SUMMARY | 2022-07-17 12:38 | XMS_ITS | Encounter Summary ---
:1940 Author Organization [place] [address] Care Team Providers Name Role Phone Brianne Sin MD Primary Care Provider Reason for Visit Reason Comments Chemotherapy Cycle 14, Day 1 -- Nivolumab Treatment/Therapy Plan Authorization (Routine) - Closed Specialty Diagnoses / Procedures Referred By Contact Refer red To Contact Diagnoses 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 Dell Mccauley MD [facility] Hem Onc Infusion [address] [place] [address] [address] [place] [address] Phone: Fax: Referral ID Status Reason Start Date Expiration Date Visits Requ ested Visits Authorized [id number] Closed 02/16/2017 02/16/2018 1 1 Encounter Details Date Type Department Care Team Description 08/17/2017 [facility] lobe of right lung [address] [place] [phone] Social History Tobacco Use Types Packs/Day Years Used Date Former Smoker Cigarettes 1 30 Quit: 10/01/19 80 Smokeless Tobacco: Never Used Alcohol Use Standard Drinks/Week Comments No 0 (1 standard drink = 0.6 oz pure alcoho l) Sex Assigned at Date Recorded Not on file documented as of this encounter Progress Notes Radha Martinez RN - 08/17/2017 10:00 AM EDT INFUSION THERAPY ADMINISTRATION NOTES DIAGNOSIS: NSCLC CYCLE #: Cycle 14, Day 1 -- Nivolumab REASON FOR VISIT: To receive chemotherapy. SUBJECTIVE: Parveen offers no complaints. OBJECTIVE: Seen by provider. VSS. Ready for treatment today. LAB DATA: WBC - 4.89, H/H - 13.5/41.6, plt Ct - 160, ANC - 3.01, BUN/CR - 27/1.36, TSH/T4 - 5.07/9.2 IV ACCESS: PIV Pre administration: Chemotherapy orders independently verified for drug name, route, and dosage per patient's height, weight and BSA by Damion Martinez RN and Pramod Redmond [facility]. REACTIONS (DESCRIPTION, TIME, INTERVENTION AND EFFECTIVENESS) none ASSESSMENT: Parveen was awake, alert and tolerated treatment well. PIV discontinued prior to dismissal. PLAN: Return to clinic per routine. documented in this encounter Plan of Treatment Upcoming Encounters Date Type Specialty Care Team Description 10/02/2022 Office Visit Dermatology Ashok Xiong MD [address] [facility] DERMATOLOGY [place], [place] [address] (Wo rk) documented as of this encounter Procedures Procedure Name Priority Date/Time Associated Diagnosis Comme nts LAB SCAN 08/17/2017 12:00 AM Results for this EDT procedure are i n the results section . documented in this encounter Results SCAN DOC: LAB (08/17/2017 12:00 AM EDT) Narrative 08/17/2017 12:00 AM EDT This result has an attachment that is no t available. Ordered by an unspecified provider. Scanning Provider MEDIA MGR SCAN EXT ORDR/RSLT documented in this encounter Visit Diagnoses Diagnosis Malignant neoplasm of lower lobe of righ t lung documented in this encounter Administered Medications Inactive Administered Medications - up to 3 most recent administrations Medication Order MAR Action Action Date Dose Rate Site nivolumab (OPDIVO) 240 mg in New Bag 08/17/2017 11:36 AM EDT 240 m g 124 mL/hr sodium chloride 0.9% 124 mL infusion 240 mg, Intravenous, ONCE, 1 dose, On Wed08/17/17 at 1145, Administer over 60 Minutes, Flush line with NS after each dose, This is a restricted medication. Is this being used for an FDA approved indication? Yes, This agent is restricted to outpatient use. Is this drug being given as an outpatient? Yes documented in this encounter Care Teams Shipping And Receiving Associate Relationship Specialty Start Date End Date Brianne Sin MD PCP - General Family Medicine 12/24/15 02/01/[address] [place] [address] [place] [phone] documented as of this encounter
--- OUTSIDE RECORDS SUMMARY | 2022-07-17 12:38 | XMS_ITS | Encounter Summary ---
:1940 Author Organization [facility] [place] [address] Care Team Providers Name Role Phone Brianne Sin MD Primary Care Provider Encounter Details Date Type Department Care Team Description 08/18/2018 Orders Only Hematology/Oncology Julia Vásquez, Deann patel neoplasm of at [facility] ASSISTANT CREDIT MANAGER upper lobe of right [address] [place], [place] [address] [place] [address] [phone] (Wo rk) Social History Tobacco Use Types [...] Office Visit Dermatology Ashok Xiong MD [address] [facility] [address] DERMATOLOGY [place], [place] [address] (Wo rk) documented as of this encounter Visit Diagnoses Diagnosis Malignant neoplasm of upper lobe of righ t lung Malignant neoplasm of upper lobe, bronch us or lung documented in this encounter Care Teams Tier Lift Operator Relationship Specialty Start Date End Date Brianne Sin MD PCP - General Family Medicine 12/24/15 02/01/[address] [place] [address] [place] [phone] documented as of this encounter
--- OUTSIDE RECORDS SUMMARY | 2022-07-17 12:38 | XMS_ITS | Encounter Summary ---
:1940 Author Organization [facility] [place] [address] Care Team Providers Name Role Phone Brianne Sin MD Primary Care Provider Reason for Visit Reason Comments Chemotherapy Nivolumab, Cycle 3, Day 1 Treatment/Therapy Plan Authorization (Routine) - Closed Specialty Diagnoses / Procedures Referred By Contact Refer red To Contact Diagnoses Cancer of right lung Dell Mccauley MD [facility] Hem Onc Office [address] [place] [address] [place] [phone] Phone: Fax: Referral ID Status Reason Start Date Expiration Date Visits Requ ested Visits Authorized [id number] Closed 02/15/2018 02/15/2019 1 1 Encounter Details Date Type Department Care Team Description 03/15/2018 [facility] lobe of right lung [address] [place] [phone] Social History Tobacco Use Types Packs/Day Years Used Date Former Smoker Cigarettes 1 30 Quit: 10/01/19 80 Smokeless Tobacco: Never Used Alcohol Use Standard Drinks/Week Comments No 0 (1 standard drink = 0.6 oz pure alcoho l) Sex Assigned at Date Recorded Not on file documented as of this encounter Progress Notes Sol Menchaca RN - 03/15/2018 2:00 PM EDT INFUSION THERAPY ADMINISTRATION NOTES DIAGNOSIS: NSCLC CYCLE # 3, Day 1 REASON FOR VISIT: Nivolumab infusion SUBJECTIVE: Parveen offers no complaints. OBJECTIVE: VSS. Weight stable. LAB DATA: WNL for today's infusion IV ACCESS: PIV Pre administration: Chemotherapy orders independently verified for drug name, route, and dosage per patient's height, weight and BSA by Sol Menchaca RN and On-site pharmacist. REACTIONS (DESCRIPTION, TIME, INTERVENTION AND EFFECTIVENESS) none ASSESSMENT: Parveen awake, alert and tolerated treatment well. PIV discontinued prior to dismissal. PLAN: Return to clinic per routine. documented in this encounter Plan of Treatment Upcoming Encounters Date Type Specialty Care Team Description 10/02/2022 Office Visit Dermatology Ashok Xiong MD [address] [place] [address] DERMATOLOGY [place], [place] [address] (Wo rk) documented as of this encounter Visit Diagnoses Diagnosis Malignant neoplasm of upper lobe of righ t lung Malignant neoplasm of upper lobe, bronch us or lung documented in this encounter Administered Medications Inactive Administered Medications - up to 3 most recent administrations Medication Order MAR Action Action Date Dose Rate Site nivolumab (OPDIVO) 240 mg in New Bag 03/15/2018 3:12 PM EDT 240 mg 248 mL/hr sodium chloride 0.9% 124 mL infusion 240 mg, Intravenous, ONCE, 1 dose, On Wed03/15/18 at 1600, Administer over 30 Minutes, Flush line with NS after each dose, This is a restricted medication. Is this being used for an FDA approved indication? Yes, This agent is restricted to outpatient use. Is this drug being given as an outpatient? Yes documented in this encounter Care Teams Director Financial Services Relationship Specialty Start Date End Date Brianne Sin MD PCP - General Family Medicine 12/24/15 02/01/[address] [place] [address] [place] [phone] documented as of this encounter
--- OUTSIDE RECORDS SUMMARY | 2022-07-17 12:38 | XMS_ITS | Encounter Summary ---
:1940 Author Organization [facility] [place] [address] Care Team Providers Name Role Phone Biranne Sin MD Primary Care Provider Reason for Referral Diagnostic Test (Routine) - Closed Specialty Diagnoses / Procedures Referred By Contact Refer red To Contact Radiology Diagnoses Malignant neoplasm of upper lobe of right lung Julia Vásquez APRN [facility] Rad Nuclear Med Procedures PET CT Malik Skull Base to Mid-Thigh [address] [place] [address] [place] [address] Referral ID Status Reason Start Date Expiration Date Visits V isits Requested Authorized [id number] Closed Specialty 08/19/2018 08/19/2019 1 1 Service Requested Reason for Visit Diagnostic Test (Routine) - Closed Specialty Diagnoses / Procedures Referred By Contact Refer red To Contact Radiology Diagnoses Malignant neoplasm of upper lobe of right lung Julia Vásquez APRN [facility] Rad Nuclear Med Procedures PET CT Malik Skull Base to Mid-Thigh [address] [place] [address] [place] [address] Referral ID Status Reason Start Date Expiration Date Visits V isits Requested Authorized [id number] Closed Specialty 08/19/2018 08/19/2019 1 1 Service Requested Encounter Details Date Type Department Care Team Description 09/02/2018 Hospital Encounter Nuclear Medicine at Julia Vásquez , Malignant neoplasm Jenny Landaverde [employer] of upper lobe of [facility] [address] [facility] MEDIC[facility] [place], [place] [phone] Social History Tobacco Use Types Packs/Day Years [...] mouth. 0 mg calcium- 400 unit Tablet ondansetron (ZOFRAN) 8 Take 8 mg by mouth 0 04/27/2019 mg Tablet every 8 hours as needed for Nausea. omeprazole (PRILOSEC) 10 Take 40 mg by mouth 0 09/04/2021 mg Capsule, Delayed daily. Release(E.C.) doxepin (SINEQUAN) 25 mg TAKE 1-2 CAPSULES BY 60 capsule 1 0 05/02/2018 03/02/2019 Capsule MOUTH AT BEDTIME. triamcinolone (KENALOG) Apply topically 2 0 06/01/2019 0.025 % Cream times daily. triamcinolone Apply topically 3 0 0 01/2022 (ARISTOCORT) 0.5 % Cream times daily as needed. METOPROLOL SUCCINATE Take 25 mg by mouth 0 09/04/2021 ORAL daily as needed. documented as of this encounter Plan of Treatment Upcoming Encounters Date Type Specialty Care Team Description 10/02/2022 Office Visit Dermatology Ashok Xiong MD [address] [place] [address] DERMATOLOGY [place], [place] [address] (Wo rk) documented as of this encounter Procedures Procedure Name Priority Date/Time Associated Diagnosis Comme nts NM MALIK PET CT Routine 09/02/2018 11:00 AM Malignant neop lasm Results for this SKULL BASE TO EDT of upper lobe of procedure are in MID-THIGH right lung the results section. documented in this encounter Results PET CT Malik Skull Base to Mid-Thigh (09/02/2018 11:00 AM EDT) Anatomical Region Laterality Modality Positron Emission To mography (PET) Specimen (Source) Anatomical Location Collection Method / Collectio n Time Received Time / Laterality Volume Impressions 09/02/2018 2:51 PM EDT There is new hypermetabolic left lower hemithorax pleural nodularity and a new left pleural effusion. These findings ar e highly concerning for interval development of metastatic disease. Narrative 09/02/2018 2:51 PM EDT EXAMINATION: PET CT MALIK SKULL BASE TO MID-THIGH CLINICAL HISTORY: f/u pet scan in june and intervals suggest pleural nodularity question whether inflammation from check point inhibitor TECHNIQUE: Following IV injection of 18- ymkdgh-0-petyhkqvyvhs (FDG) a standard uptake of approximately 60 minutes, a no ncontrast CT scan followed by a PET scan were acquired from the base of the skull to mid thighs. The noncontrast CT was used for anatomic localization and photo n attenuation correction of the PET scan. Blood glucose level: 79 (mg/dL) FDG dose: 14 mCi COMPARISON: June 03, 2018 FINDINGS: HEAD/NECK: No abnormal activity is present. CHEST: There has been interval development of h ypermetabolic nodularity of the left-sided pleura. There is a new left pleural effusion and left lower lobe atelectasis. A right-sided pleural effusion is presen t and slightly larger than seen previously. There is associated right lo wer lobe atelectasis. Pleural-based nodularity in the right hemithorax appea rs unchanged and does not display demonstrate abnormal activity. Coronary artery and aortic calcification s are present. ABDOMEN/PELVIS: Diffusely increased activity in the stom ach may represent a normal physiologic variant or, perhaps, gastritis. No other abnormal activity is seen. SKELETON/EXTREMITIES: Again seen is a focal area of increased activity at the lateral aspect of the left clavicle. This has been characteriz ed previously as representing postoperative change. No new lesions are detected. Procedure Note Jean Carlos Junior MD - 09/02/2018 EXAMINATION: PET CT [place] SKULL BASE TO MID-THIGH CLINICAL HISTORY: f/u pet scan in june and intervals suggest pleural nodularity question whether inflammation from check point inhibitor TECHNIQUE: Following IV injection of 18- pxlwyk-4-vbdkbcaesplz (FDG) a standard uptake of approximately 60 minutes, a no ncontrast CT scan followed by a PET scan were acquired from the base of the skull to mid thighs. The noncontrast CT was used for anatomic localization and photo n attenuation correction of the PET scan. Blood glucose level: 79 (mg/dL) FDG dose: 14 mCi COMPARISON: June 03, 2018 FINDINGS: HEAD/NECK: No abnormal activity is present. CHEST: There has been interval development of h ypermetabolic nodularity of the left-sided pleura. There is a new left pleural effusion and left lower lobe atelectasis. A right-sided pleural effusion is presen t and slightly larger than seen previously. There is associated right lo wer lobe atelectasis. Pleural-based nodularity in the right hemithorax appea rs unchanged and does not display demonstrate abnormal activity. Coronary artery and aortic calcification s are present. ABDOMEN/PELVIS: Diffusely increased activity in the stom ach may represent a normal physiologic variant or, perhaps, gastritis. No other abnormal activity is seen. SKELETON/EXTREMITIES: Again seen is a focal area of increased activity at the lateral aspect of the left clavicle. This has been characteriz ed previously as representing postoperative change. No new lesions are detected. IMPRESSION There is new hypermetabolic left lower h emithorax pleural nodularity and a new left pleural effusion. These findings ar e highly concerning for interval development of metastatic disease. Julia Vásquez APRN IMG PET ORDERABLES documented in this encounter Visit Diagnoses Diagnosis Malignant neoplasm of upper lobe of righ t lung Malignant neoplasm of upper lobe, bronch us or lung documented in this encounter Administered Medications Inactive Administered Medications - up to 3 most recent administrations Medication Order MAR Action Action Date Dose Rate Site fludeoxyglucose (F-18) FDG Given 09/02/2018 8:42 AM EDT 13.5 mCi injection 13.5 mCi 13.5 mCi, Intravenous, ONCE PRN, 1 dose, Starting on Wed09/02/18 at 1042, Until Wed09/02/18 at 0842, Per Protocol, Routine documented in this encounter Care Teams Cyber Forensic Specialist Relationship Specialty Start Date End Date Brianne Sin MD PCP - General Family Medicine 12/24/15 02/01/[address] [place] [phone] documented as of this encounter
--- OUTSIDE RECORDS SUMMARY | 2022-07-17 12:38 | XMS_ITS | Encounter Summary ---
:1940 Author Organization [facility] [place] [address] Care Team Providers Name Role Phone Brianne Sin MD Primary Care Provider Reason for Visit Reason Comments Chemotherapy Cycle 2 Day 1 Nivolumab Treatment/Therapy Plan Authorization (Routine) - Closed Specialty Diagnoses / Procedures Referred By Contact Refer red To Contact Diagnoses Cancer of right lung Dell Mccauley MD [facility] Hem Onc Office [address] [place] [phone] [place] [address] Phone: Fax: Referral ID Status Reason Start Date Expiration Date Visits Requ ested Visits Authorized [id number] Closed 02/15/2018 02/15/2019 1 1 Encounter Details Date Type Department Care Team Description 03/01/2018 [facility] of right lung [address] [place] [phone] Social History Tobacco Use Types Packs/Day Years Used Date Former Smoker Cigarettes 1 30 Quit: 10/01/19 80 Smokeless Tobacco: Never Used Alcohol Use Standard Drinks/Week Comments No 0 (1 standard drink = 0.6 oz pure alcoho l) Sex Assigned at Date Recorded Not on file documented as of this encounter Progress Notes Kim Toth RN - 03/01/2018 1:00 PM EDT INFUSION THERAPY ADMINISTRATION NOTES DIAGNOSIS: NSCLC CYCLE #: Cycle 2, Day 1 -- Nivolumab REASON FOR VISIT: To receive chemotherapy. SUBJECTIVE: Arnold offers no complaints. OBJECTIVE: VSS. Seen by provider LAB DATA: WBC -6.32 , H/H - 13.4/41.4, plt Ct - 191, ANC - 4.87, Lytes wnl, BUN/CR - 28/1.44 V ACCESS: PIV Pre administration: Chemotherapy orders independently verified for drug name, route, and dosage per patient's height, weight and BSA by Georgina Toth RN and Pramod Redmond [facility]. REACTIONS (DESCRIPTION, TIME, INTERVENTION AND EFFECTIVENESS) none ASSESSMENT: Parveen was awake, alert and tolerated treatment well. PIV discontinued prior to dismissal. PLAN: Return to clinic per routine. documented in this encounter Plan of Treatment Upcoming Encounters Date Type Specialty Care Team Description 10/02/2022 Office Visit Dermatology Ashok Xiong MD [address] [facility] DERMATOLOGY [place], [place] [address] (Wo rk) documented as of this encounter Visit Diagnoses Diagnosis Malignant neoplasm of upper lobe of righ t lung Malignant neoplasm of upper lobe, bronch us or lung documented in this encounter Administered Medications Inactive Administered Medications - up to 3 most recent administrations Medication Order MAR Action Action Date Dose Rate Site nivolumab (OPDIVO) 240 mg in New Bag 03/01/2018 1:38 PM EDT 240 mg 248 mL/hr sodium chloride 0.9% 124 mL infusion 240 mg, Intravenous, ONCE, 1 dose, On Wed03/01/18 at 1430, Administer over 30 Minutes, Flush line with NS after each dose, This is a restricted medication. Is this being used for an FDA approved indication? Yes, This agent is restricted to outpatient use. Is this drug being given as an outpatient? Yes documented in this encounter Care Teams Cloth Shrinker Relationship Specialty Start Date End Date Brianne Sin MD PCP - General Family Medicine 12/24/15 02/01/[address] [place] [address] [place] [phone] documented as of this encounter
--- OUTSIDE RECORDS SUMMARY | 2022-07-17 12:38 | XMS_ITS | Encounter Summary ---
:1940 Author Organization [facility] [place] [address] Care Team Providers Name Role Phone Brianne Sin MD Primary Care Provider Reason for Visit Reason Comments Chemotherapy Cycle 8 Day 1 Nivolumab Treatment/Therapy Plan Authorization (Routine) - Closed Specialty Diagnoses / Procedures Referred By Contact Refer red To Contact Diagnoses Cancer of right lung Dell Mccauley MD [facility] Hem Onc Office [address] [place] [address] [phone] [place] [address] Phone: Fax: Referral ID Status Reason Start Date Expiration Date Visits Requ ested Visits Authorized [id number] Closed 02/15/2018 02/15/2019 1 1 Encounter Details Date Type Department Care Team Description 05/23/2018 [facility] lobe of right lung [address] [place] [phone] Social History Tobacco Use Types [...] Sign Reading Time Taken Comments Blood Pressure 131/75 05/23/2018 2:10 PM EDT Pulse 63 05/23/2018 2:10 PM EDT Temperature 36.3 ??C (97.3 ??F) 05/23/2018 2:10 PM EDT Respiratory Rate 16 05/23/2018 2:10 PM EDT Oxygen Saturation 100% 05/23/2018 2:10 PM EDT Inhaled Oxygen Concentration - - Weight 75 kg (165 lb 6.4 oz) 05/23/2018 2:10 PM EDT Height 173 cm (5' 8.11) 05/23/2018 2:10 PM EDT Body Mass Index 25.07 05/23/2018 2:10 PM EDT documented in this encounter Progress Notes Kim Toth RN - 05/23/2018 2:00 PM EDT INFUSION THERAPY ADMINISTRATION NOTES DIAGNOSIS: NSCLC CYCLE # 8, Day 1 REASON FOR VISIT: Nivolumab infusion SUBJECTIVE: Arngeetha offers no complaints. OBJECTIVE: VSS. Weight stable. LAB DATA: WNL for today's infusion. IV ACCESS: PIV placed by this RN. Removed after infusion. Pre administration: Chemotherapy orders independently verified for drug name, route, and dosage per patient's height, weight and BSA by Kim Toth RN and On-site pharmacist. REACTIONS (DESCRIPTION, TIME, INTERVENTION AND EFFECTIVENESS) none ASSESSMENT: Parveen awake, alert and tolerated treatment well. PIV discontinued prior to dismissal. PLAN: Return to clinic per routine. documented in this encounter Plan of Treatment Upcoming Encounters Date Type Specialty Care Team Description 10/02/2022 Office Visit Dermatology Ashok Xiong MD [address] [facility] DERMATOLOGY [place], [place] [address] (Wo rk) documented as of this encounter Visit Diagnoses Diagnosis Malignant neoplasm of upper lobe of righ t lung Malignant neoplasm of upper lobe, bronch us or lung documented in this encounter Administered Medications Inactive Administered Medications - up to 3 most recent administrations Medication Order MAR Action Action Date Dose Rate Site nivolumab (OPDIVO) 240 mg in New Bag 05/23/2018 3:05 PM EDT 240 mg 248 mL/hr sodium chloride 0.9% 124 mL infusion 240 mg, Intravenous, ONCE, 1 dose, On 05/23/18 at 1600, Administer over 30 Minutes, Flush line with NS after each dose, This is a restricted medication. Is this being used for an FDA approved indication? Yes, This agent is restricted to outpatient use. Is this drug being given as an outpatient? Yes documented in this encounter Care Teams Animal Shelter Worker Relationship Specialty Start Date End Date Brianne Sin MD PCP - General Family Medicine 12/24/15 02/01/[address] [place] [address] [place] [phone] documented as of this encounter
--- OUTSIDE RECORDS SUMMARY | 2022-07-17 12:38 | XMS_ITS | Encounter Summary ---
:1940 Author Organization [facility] [place] [address] Care Team Providers Name Role Phone Brianne Sin MD Primary Care Provider Reason for Referral Diagnostic Test (Routine) - Closed Specialty Diagnoses / Procedures Referred By Contact Refer red To Contact Radiology Diagnoses Malignant neoplasm of upper lobe of right lung Dell Mccauley MD [facility] Rad Nuclear Med Procedures PET CT Malik Skull Base to Mid-Thigh [address] [place] [phone] Fax: Referral ID Status Reason Start Date Expiration Date Visits V isits Requested Authorized [id number] Closed Specialty 05/09/2018 05/09/2019 1 1 Service Requested Reason for Visit Diagnostic Test (Routine) - Closed Specialty Diagnoses / Procedures Referred By Contact Refer red To Contact Radiology Diagnoses Malignant neoplasm of upper lobe of right lung Dell Mccauley MD [facility] Rad Nuclear Med Procedures PET CT Malik Skull Base to Mid-Thigh [address] [place] [phone] Fax: Referral ID Status Reason Start Date Expiration Date Visits V isits Requested Authorized [id number] Closed Specialty 05/09/2018 05/09/2019 1 1 Service Requested Encounter Details Date Type Department Care Team Description 06/03/2018 Hospital Encounter Nuclear Medicine at [facility], Dell Cano, Malignant neoplasm Jenny Landaverde MD of upper lobe of One [address] [place] [phone] Social History Tobacco Use Types Packs/Day Years Used Date Former Smoker Cigarettes 1 30 Quit: 10/01/19 82 Smokeless Tobacco: Never Used Alcohol Use Standard Drinks/Week Comments No 0 (1 standard drink = 0.6 oz pure alcoho l) Sex Assigned at Date Recorded Not on file documented as of this encounter Medications at Time of Discharge Medication Sig Dispensed Refills Start Date End Date gabapentin (NEURONTIN) Take 900 mg by mouth 0 300 mg Capsule 3 times daily. occ takes 900 mg prn in addition, rarely takes 900 mg TID calcium-vitamin D3 600 Take by mouth. 0 mg calcium- 400 unit Tablet doxepin (SINEQUAN) 25 mg TAKE 1-2 CAPSULES BY 60 capsule 1 0 05/02/2018 03/02/2019 Capsule MOUTH AT BEDTIME. triamcinolone (KENALOG) Apply topically 2 0 06/01/2019 0.025 % Cream times daily. triamcinolone Apply topically 3 0 01/2022 (ARISTOCORT) 0.5 % Cream times daily as needed. METOPROLOL SUCCINATE Take 25 mg by mouth 0 09/04/2021 ORAL daily as needed. documented as of this encounter Plan of Treatment Upcoming Encounters Date Type Specialty Care Team Description 10/02/2022 Office Visit Dermatology Ashok Xiong MD [address] [facility] [address] DERMATOLOGY [place], [place] [address] (Wo rk) documented as of this encounter Procedures Procedure Name Priority Date/Time Associated Diagnosis Comme nts NM MALIK PET CT Routine 06/03/2018 12:25 PM Malignant neop lasm Results for this SKULL BASE TO EDT of upper lobe of procedure are in MID-THIGH right lung the results section. documented in this encounter Results PET CT Malik Skull Base to Mid-Thigh (06/03/2018 12:25 PM EDT) Anatomical Region Laterality Modality Positron Emission To mography (PET) Specimen (Source) Anatomical Location Collection Method / Collectio n Time Received Time / Laterality Volume Impressions 06/03/2018 3:29 PM EDT 1. ??Interval appearance of several CT visualized subcentimeter pulmonary nodules in the left lung base and several sub-5 mm pulmonary nodules in the anterior left upper lobe. These are nonspecific a nd could represent interval inflammatory nodules. ??The largest and most concerni ng of these nodules is in the left lung base. Consider short interval follow-up CT in 2-3 months. 2. ??No evidence for recurrence in the r ight lung and no evidence for active jann or extrathoracic sites of metastas is. Thank you for referring this patient to [facility]. Narrative 06/03/2018 3:29 PM EDT EXAMINATION: PET CT MALIK SKULL BASE TO MID-THIGH CLINICAL HISTORY: Follow-up lung cancer on immunotherapy for last 18 months TECHNIQUE: Following IV injection of 18- tsefcd-6-wdlpenhvflgg (FDG) a standard uptake of approximately 60 [...] activity in all soft tissue regio ns. A new 7 m pulmonary nodule in the left l rhianna base (axial image 120) and a new sub-5 mm nodule at the posterior periphe ry of the left lung base (axial image 121). Several new sub-5 mm pulmonary nod ules in the anterior left upper lobe (axial image 103). Stable right lower lo be atelectasis and stable small right pleural effusion. ABDOMEN/PELVIS: Normal activity in all soft tissue regio ns. SKELETON/EXTREMITIES: Stable small FDG avid focus at the later al margin of the distal clavicle, consistent with stable postoperative kady nge. No other significant osseous abnormalities. Injection site noted in t he right antecubital region. Procedure Note [place], Jimmy A, MD - 06/03/2018Formatti ng of this note might be different from the original. EXAMINATION: PET CT MALIK SKULL BASE TO MID-THIGH CLINICAL HISTORY: Follow-up lung cancer on immunotherapy for last 18 months TECHNIQUE: Following IV injection of 18- wmwgdm-8-sdtlupgotyva (FDG) a standard uptake of approximately 60 [...] activity in all soft tissue regio ns. A new 7 m pulmonary nodule in the left l rhianna base (axial image 120) and a new sub-5 mm nodule at the posterior periphe ry of the left lung base (axial image 121). Several new sub-5 mm pulmonary nod ules in the anterior left upper lobe (axial image 103). Stable right lower lo be atelectasis and stable small right pleural effusion. ABDOMEN/PELVIS: Normal activity in all soft tissue regio ns. SKELETON/EXTREMITIES: Stable small FDG avid focus at the later al margin of the distal clavicle, consistent with stable postoperative kady nge. No other significant osseous abnormalities. Injection site noted in t he right antecubital region. IMPRESSION 1. Interval appearance of several CT vis ualized subcentimeter pulmonary nodules in the left lung base and several sub-5 mm pulmonary nodules in the anterior left upper lobe. These are nonspecific a nd could represent interval inflammatory nodules. The largest and most concerning of these nodules is in the left lung base. Consider short interval follow-up CT in 2-3 months. 2. No evidence for recurrence in the rig ht lung and no evidence for active jann or extrathoracic sites of metastas is. Thank you for referring this patient to [facility]. Dell Mccauley MD IMG PET ORDERABLES documented in this encounter Visit Diagnoses Diagnosis Malignant neoplasm of upper lobe of righ t lung Malignant neoplasm of upper lobe, bronch us or lung documented in this encounter Administered Medications Inactive Administered Medications - up to 3 most recent administrations Medication Order MAR Action Action Date Dose Rate Site fludeoxyglucose (F-18) FDG Given 06/03/2018 10:17 AM EDT 14.1 mC i injection 14.1 mCi 14.1 mCi, Intravenous, ONCE PRN, 1 dose, Starting on Wed06/03/18 at 1017, Until Wed06/03/18 at 1017, Per Protocol, Routine documented in this encounter Care Teams Maintenance Pipefitter Relationship Specialty Start Date End Date Brianne Sin MD PCP - General Family Medicine 12/24/15 02/01/[address] [place] [address] [place] [phone] documented as of this encounter
--- OUTSIDE RECORDS SUMMARY | 2022-07-17 12:38 | XMS_ITS | Encounter Summary ---
:1940 [place] [address] Care Team Providers Name Role Phone Brianne Sin MD Primary Care Provider Encounter Details Date Type Department Care Team Description 06/29/2019 Office Visit Hematology/Oncology Rowan Bajwa MD Malignant neoplasm of upper lobe of righ t lung; at [address] HEMATOLOGY/ONCOLOG [address] [place] DEPT. [phone] [place] [id number] Social History Tobacco Use Types Packs/Day Years Used Date Former Smoker Cigarettes 11 30 Quit: 10/01/19 80 Smokeless Tobacco: Never Used Alcohol Use Standard Drinks/Week Comments No 0 (1 standard drink = 0.6 oz pure alcoho l) Sex Assigned at Date Recorded Not on file documented as of this encounter Last Filed Vital Signs Vital Sign Reading Time Taken Comments Blood Pressure 140/79 06/29/2019 1:30 PM EDT Pulse 72 06/29/2019 1:30 PM EDT Temperature 36.7 ??C (98.1 ??F) 06/29/2019 1:30 PM EDT Respiratory Rate 18 06/29/2019 1:30 PM EDT Oxygen Saturation 99% 06/29/2019 1:30 PM EDT Inhaled Oxygen Concentration - - Weight 66.6 kg (146 lb 12.8 oz) 06/29/2019 1:30 PM EDT Height 173 cm (5' 8.11) 06/29/2019 1:30 PM EDT Body Mass Index 22.25 06/29/2019 1:30 PM EDT documented in this encounter Progress Notes Jimmy Bajwa MD - 06/29/2019 1:30 PM EDT Subjective: Patient ID: Parveen Gamez [...] and pleural effusion PET scan 11/19 in [facility]: Improved Resume nivolumab in [facility] Return to [facility] 03/02/19 PET negative 04/21/19 The patient returns to the [facility]. He had been receiving single agent nivolumab for his metastatic adenocarcinoma of the right lung. We stopped it about 4 weeks ago due to stage 3 diarrhea. We also started him on 1 mg/kg of prednisone. Over the last couple weeks his diarrhea has improved dramatically. He took a couple of weeks and theprednisone for it to settle down. He is been tapering down his prednisone. Currently at 20 mg for the last couple of days. He is still using occasional Imodium. Appetite is good. Energy is good. No cough or shortness of breath. Patient Active Problem List Diagnosis Code ??? [...] daily x 2 weeks then taper as directed, Disp: 90tablet, Rfl: 3 ??? omeprazole (PRILOSEC) 10 mg Capsule, Delayed Release(E.C.), Take 40 mg by mouth daily., Disp: , Rfl: ??? loperamide (IMODIUM A-D) 2 mg Tablet, Take by mouth 4 times daily as needed for Diarrhea. Maximum 16 mg in 24 hours, Disp: , Rfl: ??? calcium-vitamin D3 600 mg calcium- 400 unit Tablet, Take by mouth., Disp: , Rfl: ??? enoxaparin (LOVENOX) 80 mg/0.8 mL Syringe, Inject 100 mg subcutaneously daily. Indications: DeepVein Thrombosis with Pulmonary Embolism, Disp: , Rfl: ??? gabapentin (NEURONTIN) 300 mg Capsule, 900 mg nightly., Disp: , Rfl: ??? triamcinolone (ARISTOCORT) 0.5 [...] place, and time. Labs today White count 7.3, hemoglobin 14.5, platelets 181 Creatinine 1.3 TSH 2.45 Assessment and Plan: 78-year-old man with a long history of locally advanced/metastatic adenocarcinoma of the lung. He was initially treated with carboplatinum and Alimta and for his second line therapy he was treated withnivolumab. 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 He seems to responded to discontinuation of drug in a tapering dose of prednisone. I recommended that he slow down his taper. I would recommend 5 mg/week of tapering. He should take 24-week then 15 for a week then 10 for a week then 5 for a week and then 2-1/2 for a week. He should go up to the next highest dose if his diarrhea returns. We do plan to image him sometime in September before he returns to [place] to be sure his cancer remains in remission. I would like to see him back in 4 to 5 weeks to see how his tapering schedule of prednisone is going. documented in this encounter Plan of Treatment Upcoming Encounters Date Type Specialty Care Team Description 10/02/2022 Office Visit Dermatology Ashok Xiong MD [address] [place] [address] DERMATOLOGY [place], [place] [address] (Wo rk) documented as of this encounter Visit Diagnoses Diagnosis Malignant neoplasm of upper lobe of righ t lung Malignant neoplasm of upper lobe, bronch us or lung Colitis Other and unspecified noninfectious abraham roenteritis and colitis documented in this encounter Care Teams Shop Teacher Relationship Specialty Start Date End Date Brianne Sin MD PCP - General Family Medicine 12/24/15 02/01/[address] [place] [address] [place] [phone] documented as of this encounter
--- OUTSIDE RECORDS SUMMARY | 2022-07-17 12:38 | XMS_ITS | Encounter Summary ---
:1940 Author Organization [facility] [place] [address] Care Team Providers Name Role Phone Brianne Sin MD Primary Care Provider Reason for Visit Reason Comments Chemotherapy Cycle 1 Day 1 Nivolumab Treatment/Therapy Plan Authorization (Routine) - Closed Specialty Diagnoses / Procedures Referred By Contact Refer red To Contact Diagnoses Cancer of right lung Dell Mccauley MD [facility] Hem Onc Office [address] [place] [address] [phone] [place] [address] Phone: Fax: Referral ID Status Reason Start Date Expiration Date Visits Requ ested Visits Authorized [id number] Closed 02/15/2018 02/15/2019 1 1 Encounter Details Date Type Department Care Team Description 02/15/2018 [facility] lobe of right lung [address] [place] [phone] Social History Tobacco Use Types Packs/Day Years Used Date Former Smoker Cigarettes 1 30 Quit: 10/01/19 80 Smokeless Tobacco: Never Used Alcohol Use Standard Drinks/Week Comments No 0 (1 standard drink = 0.6 oz pure alcoho l) Sex Assigned at Date Recorded Not on file documented as of this encounter Progress Notes Kim Toth RN - 02/15/2018 1:30 PM EDT INFUSION THERAPY ADMINISTRATION NOTES DIAGNOSIS: NSCLC CYCLE #: Cycle 1, Day 1 -- Nivolumab (first treatment since he has been back from [place]. This is not his first Nivolumab. REASON FOR VISIT: To receive chemotherapy. SUBJECTIVE: Parveen offers no complaints. OBJECTIVE: VSS. Seen by provider LAB DATA: WBC -4.95 , H/H - 13.3/40.2, plt Ct - 183, ANC - 2.94, Lytes wnl, BUN/CR - 28/1.37 V ACCESS: PIV Pre administration: Chemotherapy orders independently verified for drug name, route, and dosage per patient's height, weight and BSA by Georgina Toth RN and Pramod Redmond [facility]. REACTIONS (DESCRIPTION, TIME, INTERVENTION AND EFFECTIVENESS) none ASSESSMENT: Parveen was awake, alert and tolerated treatment well. PIV discontinued prior to dismissal. PLAN: Return to clinic per routine. documented in this encounter Plan of Treatment Upcoming Encounters Date Type Specialty Care Team Description 10/02/2022 Office Visit Dermatology Ashok Xiong MD [address] [place] [address] DERMATOLOGY [place], [place] [address] (Wo rk) documented as of this encounter Visit Diagnoses Diagnosis Malignant neoplasm of upper lobe of righ t lung Malignant neoplasm of upper lobe, bronch us or lung documented in this encounter Administered Medications Inactive Administered Medications - up to 3 most recent administrations Medication Order MAR Action Action Date Dose Rate Site nivolumab (OPDIVO) 240 mg in New Bag 02/15/2018 2:36 PM EDT 240 mg 248 mL/hr sodium chloride 0.9% 124 mL infusion 240 mg, Intravenous, ONCE, 1 dose, On Wed02/15/18 at 1530, Administer over 30 Minutes, Flush line with NS after each dose, This is a restricted medication. Is this being used for an FDA approved indication? Yes, This agent is restricted to outpatient use. Is this drug being given as an outpatient? Yes documented in this encounter Care Teams Berry Picker Machine Operator Relationship Specialty Start Date End Date Brianne Sin MD PCP - General Family Medicine 12/24/15 02/01/[address] [place] [address] [place] [phone] documented as of this encounter
--- OUTSIDE RECORDS SUMMARY | 2022-07-17 12:38 | XMS_ITS | Encounter Summary ---
:1940 Author Organization [facility] [place] [address] Care Team Providers Name Role Phone Brianne Sin MD Primary Care Provider Encounter Details Date Type Department Care Team Description 03/02/2019 Office Visit Hematology/Oncology Rowan Bajwa MD Malignant neoplasm of upper lobe of righ t lung; at [facility] due to drugs [address] [place] [address] [place], [place] HEMATOLOGY/ONCOLO [address] [place] DEPT. [phone] [place], [place] [address] Social History Tobacco Use Types [...] Sign Reading Time Taken Comments Blood Pressure 160/74 03/02/2019 2:05 PM EDT Pulse 67 03/02/2019 2:05 PM EDT Temperature 36.2 ??C (97.2 ??F) 03/02/2019 2:05 PM EDT Respiratory Rate 20 03/02/2019 2:05 PM EDT Oxygen Saturation 100% 03/02/2019 2:05 PM EDT Inhaled Oxygen Concentration - - Weight 71.1 kg (156 lb 12.8 oz) 03/02/2019 2:05 PM EDT Height 173 cm (5' 8.11) 03/02/2019 2:05 PM EDT copied Body Mass Index 23.76 03/02/2019 2:05 PM EDT documented in this encounter Progress Notes Jimmy Bajwa MD - 03/02/2019 2:00 PM EDT Subjective: Patient ID: Parveen Gamez is a 78 y.o. male. HPI Metastatic adenocarcinoma of the right lung presenting 10/15 Initially treated with carboplatinum and Alimta Partial remission followed by Alimta maintenance Progressive disease in 04/16, start nivolumab Stop nivolumab 06/[address] scan 07/19 question of progressive disease PET scan 09/18 progressive disease with left hypermetabolic nodularity and pleural effusion PET scan 11/19 in [facility]: Improved Resume opdivo in [facility] Return to [facility] 03/02/19 The patient returns to the [facility]. He spent his winter down in [place]. While he was there he did resume his Opdivo. This happened in November even though his PET scan did show significantimprovement from the one in September without any intercurrent anticancer therapy. He did get some of his diarrhea back. Also some itchiness. He was started on 60 mg of prednisone with improvement. He has tapered down on his prednisone. When he got down to 5 mg the diarrhea came back. He is back up to 20 mg and doing okay. Currently having 4 stools per day that are formed. When his diarrhea was bad he was having more frequent watery stools. He has no pulmonary symptoms. His energy is good. He is happy to be back up in [place]. Patient Active Problem List Diagnosis Code ??? [...] suture removal Z48.02 Current Outpatient Medications: ??? citalopram (CELEXA) 20 mg Tablet, Take 20 mg by mouth daily., Disp: , Rfl: ??? predniSONE (DELTASONE) 20 mg Tablet, Take 20 mg by mouth daily., Disp: , Rfl: ??? omeprazole (PRILOSEC) 10 mg Capsule, Delayed Release(E.C.), Take 10 mg by mouth daily., Disp: , Rfl: ??? loperamide (IMODIUM A-D) 2 mg Tablet, Take by mouth 4 times daily as needed for Diarrhea. Maximum 16 mg in 24 hours, Disp: , Rfl: ??? triamcinolone (KENALOG) 0.025 % Cream, Apply topically 2 times daily., Disp: , Rfl: ??? gabapentin (NEURONTIN) 300 mg Capsule, 900 mg daily., Disp: , Rfl: ??? calcium-vitamin D3 [...] daily as needed., Disp: , Rfl: ??? ondansetron (ZOFRAN) 8 mg Tablet, Take 8 mg by mouth every 8 hours as needed for Nausea., Disp: , Rfl: Allergies Allergen Reactions ??? [...] is oriented to person, place, and time. 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 He was initially treated with carboplatinum and Alimta and for his second line therapy he was treated withnivolumab. When he left for [place] in the fall we were concerned that he had progressive disease. By report his most recent PET scan looks reassuring. He does have some toxicity from the nivolumab. I do not think it is any more than grade 1 toxicity at this point on the 20 mg of prednisone. We discussed trying to lower his dose. I recommended an alternate day strategy. I recommend he take 20 mg alternating with 15 mg for the next 2 weeks and if his diarrhea does not increase he can drop to 15 mg daily. I also recommended higher dose Imodium if his diarrhea does get worse. He can take 2 Imodium after every watery stool. We talked about continuing his nivolumab and I think that is reasonable and if this is very strong preference. He will be treated today. I will plan to see him back in 4 weeks. We will see how he is doing with his prednisone tapering schedule. I will plan to repeat a another PET scan sometime in April. 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
--- OUTSIDE RECORDS SUMMARY | 2022-07-17 12:38 | XMS_ITS | Encounter Summary ---
:1940 [place] [address] Care Team Providers Name Role Phone Brianne Sin MD Primary Care Provider Encounter Details Date Type Department Care Team Description 03/02/2019 Orders Only Hematology and Oncology at Jimmy Alonso MD [facility] Domo sahu HEMATOLOGY/[place] [address] DEPT. [phone] [place], [place] [address] (Wo rk) Social History Tobacco [...] 10/02/2022 Office Visit Dermatology Ashok Xiong MD [address] [place] [address] DERMATOLOGY [place], [place] [address] (Wo rk) documented as of this encounter Visit Diagnoses Not on filedocumented in this encounter Care Teams Shirt Cleaner Relationship Specialty Start Date End Date Brianne Sin MD PCP - General Family Medicine 12/24/15 02/01/[address] [place] [address] [place] [phone] documented as of this encounter
--- OUTSIDE RECORDS SUMMARY | 2022-07-17 12:38 | XMS_ITS | Encounter Summary ---
:1940 Author Organization [facility] [place] [address] Care Team Providers Name Role Phone Brianne Sin MD Primary Care Provider Reason for Referral Diagnostic Test (Routine) - Closed Specialty Diagnoses / Procedures Referred By Contact Refer red To Contact Radiology Diagnoses Malignant neoplasm of upper lobe of right lung Dell Mccauley MD [facility] Rad Nuclear Med Procedures PET CT [place]ik Skull Base to Mid-Thigh [address] [place] [phone] Fax: Referral ID Status Reason Start Date Expiration Date Visits V isits Requested Authorized [id number] Closed Specialty 05/09/2018 05/09/2019 1 1 Service Requested Reason for Visit Reason Comments Lung Cancer Encounter Details Date Type Department Care Team Description 05/09/2018 Office Visit Hematology/Oncology Dell Mccauley Mal ignant neoplasm of upper lobe of right lung; at [facility] Hypothyroidism due to drugs [address] [place] [address] [place] [address] [phone] Social History Tobacco Use Types Packs/Day Years Used Date Former Smoker Cigarettes 1 30 Quit: 10/01/19 80 Smokeless Tobacco: Never Used Alcohol Use Standard Drinks/Week Comments No 0 (1 standard drink = 0.6 oz pure alcoho l) Sex Assigned at Date Recorded Not on file documented as of this encounter Last Filed Vital Signs Vital Sign Reading Time Taken Comments Blood Pressure 144/89 05/09/2018 8:37 AM EDT Pulse 60 05/09/2018 8:37 AM EDT Temperature 36.1 ??C (97 ??F) 05/09/2018 8:37 AM EDT Respiratory Rate 16 05/09/2018 8:37 AM EDT Oxygen Saturation 100% 05/09/2018 8:37 AM EDT Inhaled Oxygen Concentration - - Weight 74.8 kg (164 lb 12.8 oz) 05/09/2018 8:37 AM EDT Height 173 cm (5' 8.11) 05/09/2018 8:37 AM EDT copied Body Mass Index 24.98 05/09/2018 8:37 AM EDT documented in this encounter Progress Notes Dell Mccauley MD - 05/09/2018 8:00 AM EDT Images from the original note were not included. 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 The patient started Nivolumab May 07, [...] well ?? TECHNIQUE: Following IV injection of 84-cnmtms-8-deoxyglucose (FDG) a standard uptake of approximately 60 [...] lung cancer. ?? Laboratory today shows a normal electrolyte pattern creatinine of 1.43 which is his baseline AST of 19 ALT of 24 albumin is 3.3 TSH 5.24 with a T4 of 8.1 CBC shows white count of 5.95 hemoglobin 13.8 hematocrit 41.2 and platelet count of 166 Assessment/plan: Parveen is doing exceptionally well and is tolerating the checkpoint inhibitor with only some pruritus as a side effect. Fortunately it is controllable with gabapentin. He is inclined not to stop the checkpoint inhibitor at your to but does want to check another scan and is been well over 6 months since one has been done. We are looking for subtle findings and I think a PET scan would be the most efficacious as far as rescanning him and is proved accurate previously. Go ahead and get one scheduled for early June. I will arrange for his next treatment in 2 weeks and see him in 4 weeks with lab and thyroid tests prior to those visits. documented in this encounter Plan of Treatment Upcoming Encounters Date Type Specialty Care Team Description 10/02/2022 Office Visit Dermatology Ashok Xiong MD [address] [place] [address] DERMATOLOGY [place], [place] [address] (Wo rk) documented as of this encounter Procedures Procedure Name Priority Date/Time Associated Diagnosis Comme nts LAB SCAN 05/09/2018 12:00 AM Results for this EDT procedure are i n the results section . documented in this encounter Results PET CT [...] Thank you for referring this patient to [facility]. Narrative 06/03/2018 3:29 PM EDT EXAMINATION: PET CT [place]IK SKULL BASE TO MID-THIGH CLINICAL HISTORY: Follow-up lung cancer on immunotherapy for last 18 months TECHNIQUE: Following IV injection of 18- qwtcab-0-qinqjdtjcopl (FDG) a standard uptake of approximately 60 [...] t he right antecubital region. Procedure Note Jimmy Gaona MD - 06/03/2018Formatti ng of this note might be different from the original. EXAMINATION: PET CT MALIK SKULL BASE TO MID-THIGH CLINICAL HISTORY: Follow-up lung cancer on immunotherapy for last 18 months TECHNIQUE: Following IV injection of 18- mrzjoh-7-xmdivvqudwcv (FDG) a standard uptake of approximately 60 [...] Thank you for referring this patient to [facility]. Dell Mccauley MD IMG PET ORDERABLES SCAN DOC: LAB (05/09/2018 12:00 AM EDT) Narrative 05/09/2018 12:00 AM EDT This result has an [...] lung documented in this encounter Care Teams Groundskeeping Maintenance Relationship Specialty Start Date End Date Brianne Sin MD PCP - General Family Medicine 12/24/15 02/01/[address] [place] [address] [place] [phone] documented as of this encounter
--- OUTSIDE RECORDS SUMMARY | 2022-07-17 12:38 | XMS_ITS | Encounter Summary ---
:1940 Author Organization [place] [address] Care Team Providers Name Role Phone Brianne Sin MD Primary Care Provider Reason for Visit Reason Comments Chemotherapy Cycle 16, Day 1 -- Nivolumab Treatment/Therapy Plan Authorization (Routine) - Closed Specialty Diagnoses / Procedures Referred By Contact Refer red To Contact Diagnoses 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 Dell Mccauley MD [facility] Hem Onc Infusion [address] [place] [address] [address] [place] [phone] Phone: Fax: Referral ID Status Reason Start Date Expiration Date Visits Requ ested Visits Authorized [id number] Closed 02/16/2017 02/16/2018 1 1 Encounter Details Date Type Department Care Team Description 09/14/2017 [facility] lobe of right lung [address] [place] [phone] Social History Tobacco Use Types Packs/Day Years Used Date Former Smoker Cigarettes 1 30 Quit: 10/01/19 80 Smokeless Tobacco: Never Used Alcohol Use Standard Drinks/Week Comments No 0 (1 standard drink = 0.6 oz pure alcoho l) Sex Assigned at Date Recorded Not on file documented as of this encounter Progress Notes Radha Martinez RN - 09/14/2017 11:30 AM EST INFUSION THERAPY ADMINISTRATION NOTES DIAGNOSIS: NSCLC CYCLE #: Cycle 16, Day 1 -- Nivolumab REASON FOR VISIT: To receive chemotherapy. SUBJECTIVE: Parveen offers no complaints. OBJECTIVE: VSS. Seen by provider LAB DATA: WBC - 4.92, H/H - 13.7/42.2, plt Ct - 170, ANC - 3.22, Lytes wnl, BUN/CR - 30/1.44 V ACCESS: PIV Pre administration: Chemotherapy orders [...] Xiong MD [address] [facility] DERMATOLOGY [place], [place] [address] (Wo rk) documented as of this encounter Procedures Procedure Name Priority Date/Time Associated Diagnosis Comme nts LAB SCAN 09/14/2017 12:00 AM Results for this EST procedure are i n the results section . documented in this encounter Results SCAN DOC: LAB (09/14/2017 12:00 AM EST) Narrative 09/14/2017 12:00 AM EST This result has an attachment that is [...] nivolumab (OPDIVO) 240 mg in New Bag 09/14/2017 12:48 PM EST 240 m g 124 mL/hr sodium chloride 0.9% 124 mL infusion 240 mg, Intravenous, ONCE, 1 dose, On Wed09/14/17 at 1300, Administer over 60 Minutes, Flush line with NS after each dose, This is a restricted medication. Is this being used for an FDA approved indication? Yes, This agent is restricted to outpatient use. Is this drug being given as an outpatient? Yes documented in this encounter Care Teams Egg Caser Relationship Specialty Start Date End Date Brianne Sin MD PCP - General Family Medicine 12/24/15 02/01/[address] [place] [address] [place] [phone] documented as of this encounter
--- OUTSIDE RECORDS SUMMARY | 2022-07-17 12:38 | XMS_ITS | Encounter Summary ---
:1940 [place] [address] Care Team Providers Name Role Phone Brianne Sin MD Primary Care Provider Encounter Details Date Type Department Care Team Description 09/08/2018 Office Visit Hematology/Oncology Rowan Bajwa MD Malignant neoplasm of upper lobe of righ t lung; at [facility] due to drugs [address] [place] [address] [place], [place] HEMATOLOGY/[place] [address] [place] DEPT. [phone] [place], [place] [address] Social History Tobacco Use Types Packs/Day Years Used Date Former Smoker Cigarettes 30 Quit: 10/01/19 80 Smokeless Tobacco: Never Used Alcohol Use Standard Drinks/Week Comments No 0 (1 standard drink = 0.6 oz pure alcoho l) Sex Assigned at Date Recorded Not on file documented as of this encounter Last Filed Vital Signs Vital Sign Reading Time Taken Comments Blood Pressure 146/73 09/08/2018 11:21 AM EST Pulse 67 09/08/2018 11:21 AM EST Temperature 36 ??C (96.8 ??F) 09/08/2018 11:21 AM EST Respiratory Rate 22 09/08/2018 11:21 AM EST Oxygen Saturation 100% 09/08/2018 11:21 AM EST Inhaled Oxygen Concentration - - Weight 68.9 kg (152 lb) 09/08/2018 11:21 AM EST Height 173 cm (5' 8.11) 09/08/2018 11:21 AM EST copied Body Mass Index 23.04 09/08/2018 11:21 AM EST documented in this encounter Progress Notes Jimmy Bajwa MD - 09/08/2018 11:30 AM EST Subjective: Patient ID: Parveen [...] with left hypermetabolic nodularity and pleural effusion The patient returns to the [facility]. Previously he was followed by Dr. Mccauley. He has been off treatment since June of this year. He stopped because of persistent itching. The itching haspersisted. He also has a persistent dry mouth. Really no other symptoms. He denies pulmonary symptoms. Weight is good. He is planning to go to [place] in about 4 weeks winters. He did have a PET scan performed. Patient Active Problem List Diagnosis Code ??? [...] gabapentin (NEURONTIN) 300 mg Capsule, 900 mg 4 times daily. , Disp: , Rfl: ??? calcium-vitamin D3 600 mg calcium- 400 unit Tablet, Take by mouth., Disp: , Rfl: ??? triamcinolone (ARISTOCORT) 0.5 % Cream, Apply topically 3 times daily as needed., Disp: , Rfl: ??? enoxaparin (LOVENOX) 80 mg/0.8 mL Syringe, Inject 100 mg subcutaneously daily. Indications: DeepVein Thrombosis with Pulmonary Embolism, Disp: , Rfl: ??? ondansetron (ZOFRAN) 8 mg Tablet, Take 8 mg by mouth every 8 hours as needed for Nausea., Disp: , Rfl: ??? loperamide (IMODIUM A-D) 2 mg Tablet, Take by mouth 4 times daily as needed for Diarrhea. Maximum 16 mg in 24 hours, Disp: , Rfl: ??? doxepin (SINEQUAN) 25 mg Capsule, TAKE 1-2 CAPSULES BY MOUTH AT BEDTIME. (Patient not taking: Reported on 09/08/2018), Disp: 60 capsule, Rfl: 1 ??? triamcinolone (KENALOG) 0.025 % Cream, Apply topically 2 times daily., Disp: , Rfl: ??? METOPROLOL SUCCINATE [...] oriented to person, place, and time. PET scan, I reviewed the images personally and showed them to the patient EXAMINATION: PET CT MALIK SKULL BASE TO MID-THIGH ?? CLINICAL HISTORY: f/u pet scan in june and intervals suggest pleural nodularity question whether inflammation from check point inhibitor ?? TECHNIQUE: Following IV injection of 66-ruzycf-0-deoxyglucose (FDG) a standard uptake of approximately 60 minutes, a noncontrast CT scan followed by a PET scan were acquired from the base of the skull to mid thighs. The noncontrast CT was used for anatomic localization and photon attenuation correction of the PET scan. ?? Blood glucose level: 79 (mg/dL) ?? FDG dose: 14 mCi ?? COMPARISON: June 03, 2018 ?? FINDINGS: ?? HEAD/NECK: No abnormal activity is present. ?? CHEST: There has been interval development of hypermetabolic nodularity of the left-sided pleura. ?? There is a new left pleural effusion and left lower lobe atelectasis. ?? A right-sided pleural effusion is present and slightly larger than seen previously. There is associated right lower lobe atelectasis. Pleural-based nodularity in the right hemithorax appears unchanged and does not display demonstrate abnormal activity. ?? Coronary artery and aortic calcifications are present. ?? ABDOMEN/PELVIS: Diffusely increased activity in the stomach may represent a normal physiologic variant or, perhaps, gastritis. No other abnormal activity is seen. ?? SKELETON/EXTREMITIES: Again seen is a focal area of increased activity at the lateral aspect of the left clavicle. This has been characterized previously as representing postoperative change. No new lesions are detected. ?? IMPRESSION There is new hypermetabolic left lower hemithorax pleural nodularity and a new left pleural effusion. These findings are highly concerning for interval development of metastatic disease. ?? 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 He was initially treated with carboplatinum and Alimta and for his second line therapy he was treated withnivolumab. Current PET scan is very worrisome for progression in the left lower lung. It was my impression viewing his PET scan from [place] of this year and his CT scan from July that he was probably starting to show progression even before stopping the nivolumab. This makes returning to immunotherapy very unlikely to produce any meaningful response. The patient is very reluctant to consider any chemotherapy especially when he feels so well. Second line chemotherapy could be attempted but not likely to have a high response rate and substantial toxicity. I did talk about considering a repeat biopsy with molecular studies to identify potentially targetable mutations. He was reluctant to consider that at this point given he feels well. The patient would like to go to [place] and repeat a PET scan in the about 2 months. Depending on how much rapid progression there is he would consider submitting to a biopsy at that point. His goal isto maximize his his good quality time and he feels that what he has right now. He sees Dr. Jeimy Kebede in [facility]. We will try to convey the current clinical situation toher and plan a PET scan down in [place] in about 2 months to assess whether he has rapid progressionor remains asymptomatic. documented in this encounter Plan of Treatment Upcoming Encounters Date Type Specialty Care Team Description 10/02/2022 Office Visit Dermatology Ashok Xiong MD [address] [facility] DERMATOLOGY [place], [place] [address] (Wo rk) documented as of this encounter Procedures Procedure Name Priority Date/Time Associated Diagnosis Comme nts LAB SCAN 12/30/2018 12:00 AM Results for this EST procedure are i n the results section. PET SCAN (SCAN) 11/08/2018 12:00 AM Resul ts for this EST procedure are i n the results section. documented in this encounter Results SCAN DOC: LAB (12/30/2018 12:00 AM EST) Narrative 12/30/2018 12:00 AM EST This result has an attachment that is no t available. Ordered by an unspecified provider. Scanning Provider MEDIA MGR SCAN EXT ORDR/RSLT SCAN DOC: PET SCAN (11/08/2018 12:00 AM EST) Narrative 11/08/2018 12:00 AM EST This result has an attachment that is no t available. Ordered by an unspecified provider. 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
--- OUTSIDE RECORDS SUMMARY | 2022-07-17 12:38 | XMS_ITS | Encounter Summary ---
:1940 Author Organization [facility] [place] [address] Care Team Providers Name Role Phone Brianne Sin MD Primary Care Provider Reason for Visit Reason Comments Lung Cancer Encounter Details Date Type Department Care Team Description 04/12/2018 Office Visit Hematology/Oncology Dell Mccauley, Mal ignant neoplasm of upper lobe of right lung; at [facility] Hypothyroidism due to drugs [address] [place], [place] [address] [phone] Social History Tobacco Use Types Packs/Day Years Used Date Former Smoker Cigarettes 1 30 Quit: 10/01/19 80 Smokeless Tobacco: Never Used Alcohol Use Standard Drinks/Week Comments No 0 (1 standard drink = 0.6 oz pure alcoho l) Sex Assigned at Date Recorded Not on file documented as of this encounter Last Filed Vital Signs Vital Sign Reading Time Taken Comments Blood Pressure 134/78 04/12/2018 12:30 PM EDT Pulse 85 04/12/2018 12:30 PM EDT Temperature 36.8 ??C (98.2 ??F) 04/12/2018 12:30 PM EDT Respiratory Rate 18 04/12/2018 12:30 PM EDT Oxygen Saturation 98% 04/12/2018 12:30 PM EDT Inhaled Oxygen Concentration - - Weight 74.8 kg (165 lb) 04/12/2018 12:30 PM EDT Height 173 cm (5' 8.11) 04/12/2018 12:30 PM EDT copied Body Mass Index 25.01 04/12/2018 12:30 PM EDT documented in this encounter Progress Notes Dell Mccauley MD - 04/12/2018 12:30 PM EDT Images from the original note were not included. 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 The patient started Nivolumab May 07, 2016 with complete response Subjective: Parveen comes in today for consideration of further infusional Nivolumab in the treatment of his recurrent non-small cell lung cancer. In 2 weeks he will have completed 2 years of therapy and we discussed whether or not he wanted to consider going off of the treatment. There is not a clinical trial yetthat definitively says patient should go off of treatment at any particular point if there are complete responder but some physicians have stopped treatment 6 months after a complete response while others tend to stop after 2 years. Without data there are others will continue the therapy as long as the patient is tolerating it well. I had this discussion today with Parveen. He does want to be restagedin June and feels he is most likely going to decide to stay on that therapy until some data existsas to whether or not the treatment should be stopped at some point. He is doing exceptionally well with only some flaky itchy skin as his only side effect. He does tend to drink more water as he has a bit of a dry mouth but no GI symptoms no nausea no diarrhea or other problems. His breathing is great. His blood pressures been a little higher so he is on metoprolol again. Past medical history and social history are reviewed and unchanged from from 4 weeks ago except for the addition of [...] IV 240 mg 240 mg 240 mg EXAMINATION: PET CT MALIK SKULL BASE TO MID-THIGH 07/29/17?? CLINICAL HISTORY: Follow up lung cancer on immunotherapy. Clinically doing well ?? TECHNIQUE: Following IV injection of 07-hzlsmr-1-deoxyglucose (FDG) a standard uptake of approximately 60 [...] metastatic lung cancer. ?? Laboratory today shows normal electrolytes a creatinine of 1.37 alkaline phosphatase of 114 and AST of 22 ALT of 31 TSH is 4.10 and T4 7.4. CBC shows a white count of 10.3 hemoglobin 14.3 hematocrit 43.3 and platelet count of 178 Assessment/plan: Parveen is continuing to do exceptionally well with his main side effect being some dry itchy skin and mild rash. It does seem a little worse with the sun exposure he is been having but it is very tolerable and he is no longer requiring any Kenalog to control symptoms. We spent a long time discussing wh ether or not he would be inclined to stop treatment considering its now becoming a trend to stop after a couple years of treatment. As noted though there is no clinical trials that suggests that that is the best course of option in some patients are continuing on longer. He is strongly inclined to continue therapy and in that regard we will will support him in his decision. We both decided we would go ahead and rescan him in June before he goes back to [place]. We will set him up for his next treatment in 2 weeks with lab and he will call if there is issues in the interim. There is no change in therapy made. documented in this encounter Plan of Treatment Upcoming Encounters Date Type Specialty Care Team Description 10/02/2022 Office Visit Dermatology Ashok Xiong MD [address] DERMATOLOGY [place], [place] [address] (Wo rk) documented as of this encounter Procedures Procedure Name Priority Date/Time Associated Diagnosis Comme nts LAB SCAN 04/12/2018 12:00 AM Results for this EDT procedure are i n the results section . LAB SCAN 03/29/2018 12:00 AM Results for this EDT procedure are i n the results section . documented in this encounter Results SCAN DOC: LAB (04/12/2018 12:00 AM EDT) Narrative 04/12/2018 12:00 AM EDT This result has an attachment that is no t available. Ordered by an unspecified provider. Scanning Provider MEDIA MGR SCAN EXT ORDR/RSLT SCAN DOC: LAB (03/29/2018 12:00 AM EDT) Narrative 03/29/2018 12:00 AM EDT This result has an attachment that is no t available. Ordered by an unspecified provider. 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
--- OUTSIDE RECORDS SUMMARY | 2022-07-17 12:38 | XMS_ITS | Encounter Summary ---
:1940 Author Organization [facility] [place] [address] Care Team Providers Name Role Phone Brianne Sin MD Primary Care Provider Reason for Visit Reason Comments Lung Cancer Encounter Details Date Type Department Care Team Description 07/05/2018 Office Visit Hematology/Oncology Dell Mccauley, Mal ignant neoplasm of at [facility] upper lobe of right [address] [place] [id number] [phone] (Wo rk) Social History Tobacco Use Types [...] Sign Reading Time Taken Comments Blood Pressure 140/75 07/05/2018 8:35 AM EDT Pulse 70 07/05/2018 8:35 AM EDT Temperature 36.6 ??C (97.9 ??F) 07/05/2018 8:35 AM EDT Respiratory Rate 16 07/05/2018 8:35 AM EDT Oxygen Saturation 100% 07/05/2018 8:35 AM EDT Inhaled Oxygen Concentration - - Weight 71.1 kg (156 lb 12.8 oz) 07/05/2018 8:35 AM EDT Height 173 cm (5' 8.11) 07/05/2018 8:35 AM EDT copied Body Mass Index 23.76 07/05/2018 8:35 AM EDT documented in this encounter Progress Notes Dell Mcaculey MD - 07/05/2018 8:00 AM EDT Images from the original note were not included. 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 The patient started Nivolumab May 07, 2016 with complete response Subjective: Parveen comes in today for continued treatment with Nivolumab. The itching for him is become at increasing problem and he certainly does not like the way he feels on the gabapentin. We have been having ongoing discussions about possibly discontinuing the Nivolumab considering he has had a complete response and is more than 2 years out on the treatment. He has become increasingly comfortable with that decision and does want to stop treatment today. Does have a small nodule that needs to be followed upthat was found incidentally on the last PET scan that was not PET avid. He would like to do that in the near term and certainly that is reasonable. We will go ahead and get that scheduled for him. Past medical history and social history are reviewed and unchanged from when I saw him 6 weeks ago. Current Outpatient Prescriptions on File [...] Cycle 6 nivolumab (OPDIVO) IV 240 mg ONCBCN ONCOLOGY (AMB) 05/09/2018 05/23/2018 06/06/2018 Day, Cycle Day 1, Cycle 7 Day 1, Cycle 8 Day 1, Cycle 9 nivolumab (OPDIVO) IV 240 mg 240 mg 240 mg ONCBCN ONCOLOGY (AMB) 06/20/2018 Day, Cycle Day 1, Cycle 10 nivolumab (OPDIVO) IV 240 mg EXAMINATION: PET CT MALIK SKULL BASE TO MID-THIGH 07/29/17?? CLINICAL HISTORY: Follow up lung cancer on immunotherapy. Clinically doing well ?? TECHNIQUE: Following IV injection of 74-ocppds-8-deoxyglucose (FDG) a standard uptake of approximately 60 [...] metastatic lung cancer. ? EXAMINATION: PET CT [place] SKULL BASE TO MID-THIGH CLINICAL HISTORY: Follow-up lung cancer on immunotherapy for last 18 months TECHNIQUE: Following IV injection of 74-mapjuo-0-deoxyglucose (FDG) a standard uptake of approximately 60 [...] or extrathoracic sites of metastasis. Review of his laboratory today shows a white count of 6.11 hemoglobin 12.5 hematocrit 38% platelets 236 differentials normal CMP shows his typical creatinine of 1.39 normal electrolytes with a sodium of 138 AST is 16 ALT 19 alkaline phosphatase 106 TSH 3.72 with a T4 of 8.2 Assessment/plan: Parveen is doing well overall. He is having some autoimmune effects and is very much hopeful that thestation of treatment will improve those symptoms as he does not like the way he feels on the gabapentin. We have been having ongoing discussions about stopping the Nivolumab since he is a complete responder and has been on the therapy for a couple of years. He understands that this may come back whether or not he is on treatment. He has no contraindications to restarting treatment with response ratesnear 50% if he does have a reoccurrence on reinstituting Nivolumab. He did have a small nodule seen on the last PET scan that was not PET avid. They recommended a short interval follow-up so we will go ahead and do that scan and see him back in a couple weeks after that to go over the results. He understands it may take several months for the itching to resolve but I would prefer not to put him on steroids and he is fine without at the current time. Once the itching becomes less of a problem he can start tapering off the gabapentin. Will call if other issues or problems develop in the interim but we will discontinue his treatment today as per above discussion. documented in this encounter Plan of Treatment Upcoming Encounters Date Type Specialty Care Team Description 10/02/2022 Office Visit Dermatology Ashok Xiong MD [address] DERMATOLOGY [place], [place] [address] (Wo rk) documented as of this encounter Procedures Procedure Name Priority Date/Time Associated Diagnosis Comme nts LAB SCAN 06/20/2018 12:00 AM Results for this EDT procedure are i n the results section . LAB SCAN 06/06/2018 12:00 AM Results for this EDT procedure are i n the results section . LAB SCAN 05/23/2018 12:00 AM Results for this EDT procedure are i n the results section . documented in this encounter Results SCAN DOC: LAB (06/20/2018 12:00 AM EDT) Narrative 06/20/2018 12:00 AM EDT This result has an attachment that is no t available. Ordered by an unspecified provider. Scanning Provider MEDIA MGR SCAN EXT ORDR/RSLT SCAN DOC: LAB (06/06/2018 12:00 AM EDT) Narrative 06/06/2018 12:00 AM EDT This result has an attachment that is no t available. Ordered by an unspecified provider. Scanning Provider MEDIA MGR SCAN EXT ORDR/RSLT SCAN DOC: LAB (05/23/2018 12:00 AM EDT) Narrative 05/23/2018 12:00 AM EDT This result has an attachment that is no t available. Ordered by an unspecified provider. Scanning Provider MEDIA MGR SCAN EXT ORDR/RSLT documented in this encounter Visit Diagnoses Diagnosis Malignant neoplasm of upper lobe of righ t lung Malignant neoplasm of upper lobe, bronch us or lung documented in this encounter Care Teams Manager Simulation Relationship Specialty Start Date End Date Brianne Sin MD PCP - General Family Medicine 12/24/15 02/01/[address] [place] [address] [place] [phone] documented as of this encounter
--- OUTSIDE RECORDS SUMMARY | 2022-07-17 12:38 | XMS_ITS | Encounter Summary ---
:1940 Author Organization [facility] [place] [address] Care Team Providers Name Role Phone Brianne Sin MD Primary Care Provider Reason for Visit Reason Comments Chemotherapy Cycle 15, Day 1 -- Nivolumab Treatment/Therapy Plan Authorization (Routine) - Closed Specialty Diagnoses / Procedures Referred By Contact Refer red To Contact Diagnoses 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 Dell Mccauley MD [facility] Hem Onc Infusion [address] [place] [address] [address] [place] [address] Phone: Fax: Referral ID Status Reason Start Date Expiration Date Visits Requ ested Visits Authorized [id number] Closed 02/16/2017 02/16/2018 1 1 Encounter Details Date Type Department Care Team Description 08/31/2017 [facility] lung [address] [place] [phone] Social History Tobacco Use Types Packs/Day Years Used Date Former Smoker Cigarettes 1 30 Quit: 10/01/19 80 Smokeless Tobacco: Never Used Alcohol Use Standard Drinks/Week Comments No 0 (1 standard drink = 0.6 oz pure alcoho l) Sex Assigned at Date Recorded Not on file documented as of this encounter Progress Notes Radha Martinez RN - 08/31/2017 1:00 PM EDT INFUSION THERAPY ADMINISTRATION NOTES DIAGNOSIS: NSCLC CYCLE #: Cycle 15, day 1 -- Nivolumab REASON FOR VISIT: To receive chemotherapy SUBJECTIVE: Parveen offers no complaints. OBJECTIVE: VSS. Weight stable. Seen by provider LAB DATA: WBC - 5.00, H/H - 14.1/43.2, Plt Ct - 183, ANC - 3.62, Lytes wnl, BUN/CR - 33/1.36, IV ACCESS: PIV Pre administration: Chemotherapy orders independently verified for drug name, route, and dosage per patient's height, weight and BSA by Damion Martinez RN and Pramod Redmond [facility]. REACTIONS (DESCRIPTION, TIME, INTERVENTION AND EFFECTIVENESS) none ASSESSMENT: Parveen was awake, alert and tolerated treatment well. PIV discontinued prior to dismissal. PLAN: Return to clinic per routine. documented in this encounter Plan of Treatment Upcoming Encounters Date Type Specialty Care Team Description 10/02/2022 Office Visit Dermatology Ashok Xiong MD [address] [facility] DERMATOLOGY [place], [place] [address] (Wo rk) documented as of this encounter Procedures Procedure Name Priority Date/Time Associated Diagnosis Comme nts LAB SCAN 08/31/2017 12:00 AM Results for this EDT procedure are i n the results section . documented in this encounter Results SCAN DOC: LAB (08/31/2017 12:00 AM EDT) Narrative 08/31/2017 12:00 AM EDT This result has an [...] nivolumab (OPDIVO) 240 mg in New Bag 08/31/2017 2:14 PM EDT 240 mg 124 mL/hr sodium chloride 0.9% 124 mL infusion 240 mg, Intravenous, ONCE, 1 dose, On Wed08/31/17 at 1445, Administer over 60 Minutes, Flush line with NS after each dose, This is a restricted medication. Is this being used for an FDA approved indication? Yes, This agent is restricted to outpatient use. Is this drug being given as an outpatient? Yes documented in this encounter Care Teams Fitness Assistant Relationship Specialty Start Date End Date Brianne Sin MD PCP - General Family Medicine 12/24/15 02/01/[address] [place] [address] [place] [phone] documented as of this encounter
--- OUTSIDE RECORDS SUMMARY | 2022-07-17 12:38 | XMS_ITS | Encounter Summary ---
:1940 Author Organization [facility] [place] [address] Care Team Providers Name Role Phone Brianne Sin MD Primary Care Provider Reason for Visit Reason Comments Skin Lesion BACK Pruritus Encounter Details Date Type Department Care Team Description 02/24/2018 Office Visit Dermatology at [facility], Seborrh eic keratosis; Terri JANE Epidermal cyst; [address] [facility] Pruritus [place] B DERMATOLOGY [place], [place] [id number] [phone] Social History Tobacco Use Types Packs/Day Years Used Date Former Smoker Cigarettes 1 30 Quit: 10/01/19 80 Smokeless Tobacco: Never Used Alcohol Use Standard Drinks/Week Comments No 0 (1 standard drink = 0.6 oz pure alcoho l) Sex Assigned at Date Recorded Not on file documented as of this encounter Progress Notes Ashok Xiong MD - 02/24/2018 3:15 PM EDT Problem: 1. Generalized diffuse pruritus associated with current oncologic therapy 2. Cyst on back Parveen follows up and is just returned from [place] about 3 weeks ago. The Opdivo continues to work well for his adenocarcinoma of the lung and he continues to enjoy a complete response. The unfortunate thing is developed significant diffuse pruritus which is been a blamed on the Opdivo. He was started on gabapentin and is taking 4666-1937 mg a day with some relief of his itching but not really adequately so. He has been using triamcinolone 0.5% cream with some benefit. Is on cetirizine. Hydroxyzinewas not helpful. His chief complaint today is his significant pruritus. He also has a cyst on his back he would like me to check. Physical examination reveals erythematous papules present widely over his back within normal Groversdisease like appearance. Many of them have been excoriated. He has some that are present over the anterior shoulders and onto the upper chest as well. He shows me areas on his legs that he has been dealing and scratching it as well which appear to be more eczematous. There are spongiotic nummular patches. He has a small follicular cysts perhaps about 8 mm in diameter on the upper central back Assessment plan: Diffuse generalized pruritus in a adenocarcinoma patient on a Opdivo/Lovenox. 1. Today patient was given Kenalog 40 mg injected 1 shot to the left and once the right upper outer quadrant of the buttocks. 2. Begin trial of doxepin 25 mg 1-2 p.o. nightly dispense #60 with 2 refills 3. May continue with gabapentin up to 8800 mg a day. May continue with cetirizine. Return to clinic in 1 month for repeat check Follicular cyst upper central back 1. I would recommend excision of this in 1 month when he returns for his repeat check on his pruritus. CC: Brianne Sin MD documented in this encounter Plan of Treatment Upcoming Encounters Date Type Specialty Care Team Description 10/02/2022 Office Visit Dermatology Ashok Xiong MD [address] [facility] DERMATOLOGY [place], [place] [address] (Wo rk) documented as of this encounter Visit Diagnoses Diagnosis Seborrheic keratosis Other seborrheic keratosis Epidermal cyst Sebaceous cyst Pruritus Unspecified pruritic disorder documented in this encounter Care Teams Product Planner Relationship Specialty Start Date End Date Brianne Sin MD PCP - General Family Medicine 12/24/15 02/01/[address] [place] [address] [place] [phone] documented as of this encounter
--- OUTSIDE RECORDS SUMMARY | 2022-07-17 12:38 | XMS_ITS | Encounter Summary ---
:1940 Author Organization [facility] [place] [address] Care Team Providers Name Role Phone Brianne Sin MD Primary Care Provider Reason for Visit Reason Comments Lung Cancer Encounter Details Date Type Department Care Team Description 03/15/2018 Office Visit Hematology/Oncology [facility] Mccauley, Mal ignant neoplasm of upper lobe of right lung; at [facility] Hypothyroidism due to drugs [address] [address] [place], [place] [address] [phone] Social History Tobacco Use Types Packs/Day Years Used Date Former Smoker Cigarettes 1 30 Quit: 10/01/19 80 Smokeless Tobacco: Never Used Alcohol Use Standard Drinks/Week Comments No 0 (1 standard drink = 0.6 oz pure alcoho l) Sex Assigned at Date Recorded Not on file documented as of this encounter Last Filed Vital Signs Vital Sign Reading Time Taken Comments Blood Pressure 147/88 03/15/2018 2:23 PM EDT Pulse 60 03/15/2018 2:23 PM EDT Temperature 36.2 ??C (97.2 ??F) 03/15/2018 2:23 PM EDT Respiratory Rate 16 03/15/2018 2:23 PM EDT Oxygen Saturation 100% 03/15/2018 2:23 PM EDT Inhaled Oxygen Concentration - - Weight 73 kg (161 lb) 03/15/2018 2:23 PM EDT Height 173 cm (5' 8.11) 03/15/2018 2:23 PM EDT copied Body Mass Index 24.4 03/15/2018 2:23 PM EDT documented in this encounter Progress Notes Dell Mccauley MD - 03/15/2018 1:30 PM EDT Images from the original note were not included. 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 He notes that even though it has been a while since she has had theKenalog shot he is doing better on controlling the itching and is thinking of not repeating the shot. Review of systems is otherwise quite negative with no diarrhea no dry eyes but some dry mouth that is better if he frequently drink sips of water to help with that. Past medical history and social history are reviewed and unchanged from from 2 weeks ago Current Outpatient Prescriptions on File Prior to [...] (OPDIVO) IV 240 mg EXAMINATION: PET CT [place]ATUR SKULL BASE TO MID-THIGH 07/29/17?? CLINICAL HISTORY: Follow up lung cancer on immunotherapy. Clinically doing well ?? TECHNIQUE: Following IV injection of 14-lpfovh-2-deoxyglucose (FDG) a standard uptake of approximately 60 [...] metastatic lung cancer. ?? Laboratory today shows white count of 5.72 hemoglobin 14.1 hematocrit 42.8 and platelet count 174. Absolute neutrophil count 4.44 chemistries are reviewed. Electrolytes are normal creatinine is 1.46 which is his normal. Liver tests are normal with an AST of 25 and ALT of 26 TSH is 4.36 with a T4 of 7.9. It slowly been going up the past month. Assessment/plan: Parveen is fine today for treatment. He is doing better as far as his itching goes with topical steroids and the gabapentin at night and is leaning towards not repeating the Kenalog with the cmo & president although that was quite effective. I told him I was fine with it either way. Clearly the checkpoint inhibitors can keep working even with patients on steroids when necessary. We will go ahead with treatment today and see him back in 2 weeks for another infusion. Plans are to rescan him with another PET scan in June. Other than the itching there is no evidence for any autoimmune effects. Will continue to watch his thyroid functions and make sure he is not going to develop overt hypothyroidism. documented in this encounter Plan of Treatment Upcoming Encounters Date Type Specialty Care Team Description 10/02/2022 Office Visit Dermatology Ashok Xiong MD [address] [place] [address] DERMATOLOGY [place], [place] [address] (Wo rk) documented as of this encounter Procedures Procedure Name Priority Date/Time Associated Diagnosis Comme nts LAB SCAN 03/15/2018 12:00 AM Results for this EDT procedure are i n the results section . documented in this encounter Results SCAN DOC: LAB (03/15/2018 12:00 AM EDT) Narrative 03/15/2018 12:00 AM EDT This result has an attachment that is no t available. Ordered by an unspecified provider. 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
--- OUTSIDE RECORDS SUMMARY | 2022-07-17 12:38 | XMS_ITS | Encounter Summary ---
:1940 Author Organization [facility] [place] [address] Care Team Providers Name Role Phone Brianne Sin MD Primary Care Provider Reason for Visit Reason Comments Chemotherapy Cycle 10 Day 1 Nivolumab Treatment/Therapy Plan Authorization (Routine) - Closed Specialty Diagnoses / Procedures Referred By Contact Refer red To Contact Diagnoses Cancer of right lung Dell Mccauley MD [facility] Hem Onc Office [address] [place] [address] 776 [address] [place] [address] Phone: Fax: Referral ID Status Reason Start Date Expiration Date Visits Requ ested Visits Authorized [id number] Closed 02/15/2018 02/15/2019 1 1 Encounter Details Date Type Department Care Team Description 06/20/2018 [facility] of [facility] lung [address] [place] [phone] Social History Tobacco Use Types [...] Sign Reading Time Taken Comments Blood Pressure 152/81 06/20/2018 9:02 AM EDT Pulse 70 06/20/2018 9:02 AM EDT Temperature 36.6 ??C (97.9 ??F) 06/20/2018 9:02 AM EDT Respiratory Rate 16 06/20/2018 9:02 AM EDT Oxygen Saturation 100% 06/20/2018 9:02 AM EDT Inhaled Oxygen Concentration - - Weight 72.6 kg (160 lb) 06/20/2018 9:02 AM EDT Height 173 cm (5' 8.11) 06/20/2018 9:02 AM EDT Body Mass Index 24.25 06/20/2018 9:02 AM EDT documented in this encounter Progress Notes Kim Toth RN - 06/20/2018 9:00 AM EDT INFUSION THERAPY ADMINISTRATION NOTES DIAGNOSIS: NSCLC CYCLE #: Cycle 10, Day 1 -- Nivolumab REASON FOR VISIT: To receive chemotherapy. SUBJECTIVE: Parveen explains that he has diarrhea once a week. He states it may be diet related and does not require medications. OBJECTIVE: VSS. LAB DATA: WBC -5.62 , H/H - 13.2/40.1, plt Ct - 184, ANC - 4.02, Lytes wnl, BUN/CR - 26/1.34 V ACCESS: PIV Pre administration: Chemotherapy orders independently verified for drug name, route, and dosage per patient's height, weight and BSA by Georgina Toth RN and [facility] onsite. REACTIONS (DESCRIPTION, TIME, INTERVENTION AND EFFECTIVENESS) none ASSESSMENT: Parveen was awake, alert and tolerated treatment well. PIV discontinued prior to dismissal. PLAN: Return to clinic per routine. documented in this encounter Plan of Treatment Upcoming Encounters Date Type Specialty Care Team Description 10/02/2022 Office Visit Dermatology Ashok Xiong MD [address] DERMATOLOGY [place], [place] [address] (Wo rk) documented as of this encounter Visit Diagnoses Diagnosis Malignant neoplasm of upper lobe of righ t lung Malignant neoplasm of upper lobe, bronch us or lung documented in this encounter Administered Medications Inactive Administered Medications - up to 3 most recent administrations Medication Order MAR Action Action Date Dose Rate Site nivolumab (OPDIVO) 240 mg in New Bag 06/20/2018 9:48 AM EDT 240 mg 248 mL/hr sodium chloride 0.9% 124 mL infusion 240 mg, Intravenous, ONCE, 1 dose, On 06/20/18 at 1030, Administer over 30 Minutes, Flush line with NS after each dose, This is a restricted medication. Is this being used for an FDA approved indication? Yes, This agent is restricted to outpatient use. Is this drug being given as an outpatient? Yes documented in this encounter Care Teams Landscape Architect And Planner Relationship Specialty Start Date End Date Brianne Sin MD PCP - General Family Medicine 12/24/15 02/01/[address] [place] [address] [place] [id number] documented as of this encounter
--- OUTSIDE RECORDS SUMMARY | 2022-07-17 12:38 | XMS_ITS | Encounter Summary ---
:1940 Author Organization [facility] [place] [address] Care Team Providers Name Role Phone Brianne Sin MD Primary Care Provider Encounter Details Date Type Department Care Team Description 03/31/2019 Orders Only Hematology/Oncology at [facility] [address] [phone] Social History Tobacco Use [...] 10/02/2022 Office Visit Dermatology Ashok Xiong MD [address] [place] [address] DERMATOLOGY [place], [place] [address] (Wo rk) documented as of this encounter Visit Diagnoses Not on filedocumented in this encounter Care Teams Music Worker Relationship Specialty Start Date End Date Brianne Sin MD PCP - General Family Medicine 12/24/15 02/01/[address] [place] [address] [place] [phone] documented as of this encounter
--- OUTSIDE RECORDS SUMMARY | 2022-07-17 12:38 | XMS_ITS | Encounter Summary ---
:1940 Author Organization [facility] [place] [address] Care Team Providers Name Role Phone Brianne Sin MD Primary Care Provider Reason for Visit Reason Comments Chemotherapy Cycle 7, Day 1; Nivolumab Treatment/Therapy Plan Authorization (Routine) - Closed Specialty Diagnoses / Procedures Referred By Contact Refer red To Contact Diagnoses Cancer of right lung Dell Mccauley MD [facility] Hem Onc Office [address] [place] [address]36 72 [place] [address] Phone: Fax: Referral ID Status Reason Start Date Expiration Date Visits Requ ested Visits Authorized [id number] Closed 02/15/2018 02/15/2019 1 1 Encounter Details Date Type Department Care Team Description 05/09/2018 [facility] lobe of right lung [address] [place] [phone] Social History Tobacco Use Types Packs/Day Years Used Date Former Smoker Cigarettes 1 30 Quit: 10/01/19 80 Smokeless Tobacco: Never Used Alcohol Use Standard Drinks/Week Comments No 0 (1 standard drink = 0.6 oz pure alcoho l) Sex Assigned at Date Recorded Not on file documented as of this encounter Progress Notes Brenda Bush RN - 05/09/2018 8:30 AM EDT INFUSION THERAPY ADMINISTRATION NOTES DIAGNOSIS: NSCLC CYCLE # 7, Day 1 REASON FOR VISIT: Nivolumab infusion [...] 10/02/2022 Office Visit Dermatology Ashok Xiong MD [address] [place] [address] DERMATOLOGY [place], [place] [address] (Wo rk) documented as of this encounter Visit Diagnoses Diagnosis Malignant neoplasm of upper lobe of righ t lung Malignant neoplasm of upper lobe, bronch us or lung documented in this encounter Administered Medications Inactive Administered Medications - up to 3 most recent administrations Medication Order MAR Action Action Date Dose Rate Site nivolumab (OPDIVO) 240 mg in New Bag 05/09/2018 9:37 AM EDT 240 mg 248 mL/hr sodium chloride 0.9% 124 mL infusion 240 mg, Intravenous, ONCE, 1 dose, On 05/09/18 at 1030, Administer over 30 Minutes, Flush line with NS after each dose, This is a restricted medication. Is this being used for an FDA approved indication? Yes, This agent is restricted to outpatient use. Is this drug being given as an outpatient? Yes documented in this encounter Care Teams Front End Web Developer Relationship Specialty Start Date End Date Brianne Sin MD PCP - General Family Medicine 12/24/15 02/01/[address] [place] [address] [place] [phone] documented as of this encounter
--- OUTSIDE RECORDS SUMMARY | 2022-07-17 12:38 | XMS_ITS | Encounter Summary ---
:1940 Author Organization [facility] [place] [address] Care Team Providers Name Role Phone Brianne Sin MD Primary Care Provider Encounter Details Date Type Department Care Team Description 01/13/2018 Orders Only Hematology and Oncol ogy at [facility] [place] [phone] Social History Tobacco Use Types Packs/Day Years [...] 10/02/2022 Office Visit Dermatology Ashok Xiong MD [address] [place] [address] DERMATOLOGY [place], [place] [address] (Wo rk) documented as of this encounter Visit Diagnoses Not on filedocumented in this encounter Care Teams Molding Machine Operator Relationship Specialty Start Date End Date Brianne Sin MD PCP - General Family Medicine 12/24/15 02/01/[address] [place] [address] ADELIA Lewis [phone] documented as of this encounter
--- OUTSIDE RECORDS SUMMARY | 2022-07-17 12:38 | XMS_ITS | Encounter Summary ---
:1940 Author Organization [facility] [place] [address] Care Team Providers Name Role Phone Brianne Sin MD Primary Care Provider Reason for Visit Reason Comments Chemotherapy Nivolumab Treatment/Therapy Plan Authorization (Routine) - Closed Specialty Diagnoses / Procedures Referred By Contact Refer red To Contact Diagnoses Malignant neoplasm of upper lobe of right lung Jimmy Bajwa MD [facility] D R HEMATOLOGY/[place] [address] Referral ID Status Reason Start Date Expiration Date Visits Requ ested Visits Authorized [id number] Closed 03/02/2019 03/01/2020 1 1 Encounter Details Date Type Department Care Team Description 03/02/2019 [facility] lung [address] [place] [phone] Social History Tobacco Use Types Packs/Day Years Used Date Former Smoker Cigarettes 30 Quit: 10/01/19 80 Smokeless Tobacco: Never Used Alcohol Use Standard Drinks/Week Comments No 0 (1 standard drink = 0.6 oz pure alcoho l) Sex Assigned at Date Recorded Not on file documented as of this encounter Progress Notes Fatoumata Colon RN - 03/02/2019 2:30 PM EDT INFUSION THERAPY ADMINISTRATION NOTES DIAGNOSIS: NSCLC CYCLE #1: Day 1 (but not really because he has been getting it in [place]) REASON FOR VISIT: Nivolumab SUBJECTIVE: Parveen explains that he is on prednisone for mild colitis and itching. OBJECTIVE: VSS. LAB DATA: Reviewed with provider in clinic and WNL for treatment today. V ACCESS: PIV Pre administration: Chemotherapy orders independently verified for drug name, route, and dosage per patient's height, weight and BSA by Fatoumata Colon, PEDRO and onsite pharmacist. REACTIONS (DESCRIPTION, TIME, INTERVENTION AND EFFECTIVENESS) none ASSESSMENT: Parveen was awake, alert and tolerated treatment well. PIV flushed with NS and discontinued prior to dismissal. PLAN: Return to clinic per routine. documented in this encounter Plan of Treatment Upcoming Encounters Date Type Specialty Care Team Description 10/02/2022 Office Visit Dermatology Ashok Xiong MD [address] [place] [address] DERMATOLOGY [place], [place] [address] (Wo rk) documented as of this encounter Visit Diagnoses Diagnosis Malignant neoplasm of upper lobe of righ t lung Malignant neoplasm of upper lobe, bronch us or lung documented in this encounter Administered Medications Inactive Administered Medications - up to 3 most recent administrations Medication Order MAR Action Action Date Dose Rate Site nivolumab (OPDIVO) 240 mg in New Bag 03/02/2019 3:06 PM EDT 240 mg 248 mL/hr sodium chloride 0.9% 124 mL infusion 240 mg, Intravenous, ONCE, 1 dose, On Pili 03/02/19 at 1615, Administer over 30 Minutes, Flush line with NS after each dose, This agent is restricted to outpatient use. Is this drug being given as an outpatient? Yes documented in this encounter Care Teams Solar Process Engineer Relationship Specialty Start Date End Date Brianne Sin MD PCP - General Family Medicine 12/24/15 02/01/[address] [place] [address] [place] [phone] documented as of this encounter
--- OUTSIDE RECORDS SUMMARY | 2022-07-17 12:38 | XMS_ITS | Encounter Summary ---
:1940 Author Organization [facility] [place] [address] Care Team Providers Name Role Phone Brianne Sin MD Primary Care Provider Reason for Visit Reason Comments Lung Cancer Encounter Details Date Type Department Care Team Description 08/17/2017 Office Visit Hematology/Oncology Dell Mccauley, Mal ignant neoplasm of lower lobe of right lung; at [facility] Hypothyroidism due to drugs [address], [place] [address] [phone] Social History Tobacco Use Types Packs/Day Years Used Date Former Smoker Cigarettes 1 30 Quit: 10/01/19 80 Smokeless Tobacco: Never Used Alcohol Use Standard Drinks/Week Comments No 0 (1 standard drink = 0.6 oz pure alcoho l) Sex Assigned at Date Recorded Not on file documented as of this encounter Last Filed Vital Signs Vital Sign Reading Time Taken Comments Blood Pressure 151/80 08/17/2017 9:43 AM EDT Pulse 61 08/17/2017 9:43 AM EDT Temperature 36.5 ??C (97.7 ??F) 08/17/2017 9:43 AM EDT Respiratory Rate 18 08/17/2017 9:43 AM EDT Oxygen Saturation 100% 08/17/2017 9:43 AM EDT Inhaled Oxygen Concentration - - Weight 67.1 kg (148 lb) 08/17/2017 9:43 AM EDT Height 173 cm (5' 8.11) 08/17/2017 9:43 AM EDT copied Body Mass Index 22.43 08/17/2017 9:43 AM EDT documented in this encounter Progress Notes Dell Mccauley MD - 08/17/2017 9:30 AM EDT Images from the original note were not included. 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 He is continuing to tolerate them quite well with only a little bit of dry itchy skin and a bit of a dry mouth easily managed with sipping water throughout the day. His breathing is fine. Exercise tolerance is good. He is planning on going to [place] in about a month, so we will be seeing him on and then mid September before he goes. He is going to call his oncologist in [place] and let them know he will need a treatment near the end of the month after Thanksgi. We will provide him records as needed. Patient is doing well otherwise and review of systems is otherwise negative. Parveen has been put on clindamycin for a tooth abscess which fortunately is getting better. He's nothad any associated diarrhea with that Review of systems is otherwise completely negative [...] Cycle 12 nivolumab (OPDIVO) IV 240 mg [facility] ONCOLOGY (AMB) 08/02/2017 Day, Cycle Day 1, Cycle 13 nivolumab (OPDIVO) IV 240 mg EXAMINATION: PET CT MALIK SKULL BASE TO MID-THIGH 07/29/17?? CLINICAL HISTORY: Follow up lung cancer on immunotherapy. Clinically doing well ?? TECHNIQUE: Following IV injection of 55-kwutpg-9-deoxyglucose (FDG) a standard uptake of approximately 60 [...] cancer. ?? Laboratory today shows normal electrolytes with his typical creatinine of 1.36. ALP of 100, AST of 18, ALT of 20. TSH is 5.07 with a T4 of 9.2. CBC shows a white count of 4.89, hemoglobin 13.5, hematocrit 41.6, and platelet count is 160,000. ASSESSMENT/PLAN: Parveen is doing well overall and is fine today for another nivolumab infusion. I think we are olivier he did not develop any pseudomembranous colitis on clindamycin which he took for his tooth abscess. Fortunately that has gotten better and he has not had diarrhea, so there is not going to be any confusion about whether he is having any autoimmune problems. We will go ahead with treatment today. We will continue to follow his thyroid axis but TSH has remained slightly elevated but T4 has not dropped and I think he really is not developing any progressive hypothyroidism on the treatment. There is no evidence for any other autoimmune problems including colitis, hepatitis, pneumonitis, or cerebritis. Followup is arranged for 2 weeks with lab including thyroid studies. He will call if there are issues in the interim. 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
--- OUTSIDE RECORDS SUMMARY | 2022-07-17 12:38 | XMS_ITS | Encounter Summary ---
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 [address] Referral ID Status Reason Start Date Expiration Date Visits Requ ested Visits Authorized [id number] Closed 03/02/2019 03/01/2020 1 1 Encounter Details Date Type Department Care Team Description 05/25/2019 Infusion Hematology Oncology at [facility] neoplasm of [facility] lobe of right lung [address] [place] [address] [phone] Social History Tobacco Use Types [...] Sign Reading Time Taken Comments Blood Pressure 132/72 05/25/2019 10:19 AM EDT Pulse 76 05/25/2019 10:19 AM EDT Temperature 36.6 ??C (97.9 ??F) 05/25/2019 10:19 AM EDT Respiratory Rate 18 05/25/2019 10:19 AM EDT Oxygen Saturation 97% 05/25/2019 10:19 AM EDT Inhaled Oxygen Concentration - - Weight 67.6 kg (149 lb) 05/25/2019 10:19 AM EDT Height 173 cm (5' 8.11) 05/25/2019 10:19 AM copied for mcallister EDT Body Mass Index 22.58 05/25/2019 10:19 AM EDT documented in this encounter Progress Notes Brenda Bush RN - 05/25/2019 10:30 AM EDT INFUSION THERAPY ADMINISTRATION NOTES DIAGNOSIS: NSCLC CYCLE #7, Day 1 REASON FOR VISIT: Nivolumab SUBJECTIVE: Parveen has no complaints OBJECTIVE: VSS. LAB DATA: Reviewed with provider in clinic and WNL for treatment today. Of note K+ was 3.3; Dr Bajwa wanted to encourage Parveen to eat K+ rich foods; verbalized understanding and reported he will make an effort now that he know it was low. V ACCESS: PIV Pre administration: Chemotherapy orders independently verified for drug name, route, and dosage per patient's height, weight and BSA by BRENDA BUSH, PEDRO and onsite pharmacist. REACTIONS (DESCRIPTION, TIME, INTERVENTION AND EFFECTIVENESS) none ASSESSMENT: Parveen was awake, alert and tolerated treatment well. PIV flushed with NS and discontinued prior to dismissal. PLAN: Return to clinic per routine. documented in this encounter Plan of Treatment Upcoming Encounters Date Type Specialty Care Team Description 10/02/2022 Office Visit Dermatology Ashok Xiong MD [address] [place] [address] DERMATOLOGY [place], [place] [address] (Wo rk) documented as of this encounter Visit Diagnoses Diagnosis Malignant neoplasm of upper lobe of righ t lung Malignant neoplasm of upper lobe, bronch us or lung documented in this encounter Administered Medications Inactive Administered Medications - up to 3 most recent administrations Medication Order MAR Action Action Date Dose Rate Site nivolumab (OPDIVO) 240 mg in New Bag 05/25/2019 11:21 AM EDT 240 m g 248 mL/hr sodium chloride 0.9% 124 mL infusion 240 mg, Intravenous, ONCE, 1 dose, On Pili 05/25/19 at 1200, Administer over 30 Minutes, Flush line with NS after each dose, This agent is restricted to outpatient use. Is this drug being given as an outpatient? Yes documented in this encounter Care Teams Ophthalmic Nurse Relationship Specialty Start Date End Date Brianne Sin MD PCP - General Family Medicine 12/24/15 02/01/[address] [place] [address] [place] [id number] documented as of this encounter
--- OUTSIDE RECORDS SUMMARY | 2022-07-17 12:38 | XMS_ITS | Encounter Summary ---
:1940 Author Organization [facility] [place] [address] Care Team Providers Name Role Phone Brianne Sin MD Primary Care Provider Reason for Referral Diagnostic Test (Routine) - Closed Specialty Diagnoses / Procedures Referred By Contact Refer red To Contact Radiology Diagnoses Malignant neoplasm of right lung, unspecified part of lung Jimmy Bajwa MD [facility] Rad Nuclear Med Procedures PET CT Malik Skull Base to Mid-Thigh [facility] HEMATOLOGY/[place] [address] [place] [address] Referral ID Status Reason Start Date Expiration Date Visits V isits Requested Authorized [id number] Closed Specialty 03/30/2019 03/29/2020 1 1 Service Requested Encounter Details Date Type Department Care Team Description 03/30/2019 Office Visit Hematology/Oncology Rowan Bajwa MD Malignant neoplasm of at [facility] right lung, [address] unspecified part of [place], [place] HEMATOLOGY/ONCOLOG lung [address] Y DEPT. [phone] [place], [place] [address] Social History Tobacco Use Types [...] Sign Reading Time Taken Comments Blood Pressure 122/74 03/30/2019 1:42 PM EDT Pulse 76 03/30/2019 1:42 PM EDT Temperature 36.5 ??C (97.7 ??F) 03/30/2019 1:42 PM EDT Respiratory Rate 16 03/30/2019 1:42 PM EDT Oxygen Saturation 99% 03/30/2019 1:42 PM EDT Inhaled Oxygen Concentration - - Weight 68.9 kg (151 lb 12.8 oz) 03/30/2019 1:42 PM EDT Height 173 cm (5' 8.11) 03/30/2019 1:42 PM EDT copied Body Mass Index 23.01 03/30/2019 1:42 PM EDT documented in this encounter Progress Notes Jimmy Bajwa MD - 03/30/2019 1:30 PM EDT Subjective: Patient ID: Parveen [...] 11/19 in [place]: Improved Resume nivolumab in [facility] Return to [facility] 03/02/19 The patient returns to the [facility]. He is receiving single agent nivolumab for his metastatic adenocarcinoma of the right lung. Overall tolerating therapy reasonably well. He was having diarrhea requiring steroids. He is been able to taper his steroids down to 5 mg a day of prednisone. He is using Lomotil about 8/day. He is having to be 3-4 formed stools per day. No liquid stool. No other major problems. He did get an injection of his right shoulder. Is looking forward to havingsome dental work done. No recent infection. Patient Active Problem List Diagnosis Code ??? [...] Z48.02 Current Outpatient Medications: ??? predniSONE (DELTASONE) 5 mg Tablet, Take 4 tablets by mouth daily. Tape as directed, Disp: 120 tablet, Rfl: 5 ??? omeprazole (PRILOSEC) 10 mg Capsule, Delayed [...] with Pulmonary Embolism, Disp: , Rfl: ??? Clobetasol 0.05 % [place], Non-Aerosol, SPRAY TWICE A DAY NEEDED FOR ITCH X 28 DAYS AND THEN OFF . REPEAT NEEDED, Disp: , Rfl: 2 ??? ondansetron (ZOFRAN) 8 mg Tablet, Take 8 mg by mouth every 8 hours as needed for Nausea., Disp: , Rfl: ??? METOPROLOL SUCCINATE ORAL, [...] is oriented to person, place, and time. TSH 2.38 Wbc 6.8, hgb 13.5, plts 188 Cr 1.26 Assessment and Plan: 78-year-old man with a long history of locally advanced/metastatic adenocarcinoma of the lung. He was initially treated with carboplatinum and Alimta and for his second line therapy he was treated withnivolumab. He continues on nivolumab with good tolerance. Overall I see no significant worsening of any toxicity. His GI symptoms which may have been some what related to the immunotherapy seem to be under good control currently and is still tapering his prednisone. I did recommend that we continue on with every 2-week nivolumab. I would like to see him towards theend of April with a repeat PET scan to be sure he is not showing any signs of progression especially given the PET scan abnormalities that was seen last year. The patient is in agreement with the plan documented in this encounter Plan of Treatment Upcoming Encounters Date Type Specialty Care Team Description 10/02/2022 Office Visit Dermatology Ashok Xiong MD [address] [facility] DERMATOLOGY [place], [place] [address] (Wo rk) documented as of this encounter Results PET CT Malik Skull [...] e number below. ? Electronically signed by: Cyndi Orr [facility] ([phone]), at 04/21/2019 3:23 PM Narrative 04/21/2019 3:23 PM EDT EXAMINATION: PET CT MALIK SKULL BASE TO MID-THIGH CLINICAL HISTORY: lung cancer TECHNIQUE: Following IV injection of 18- cjsgpv-6-kufawkynqefx (FDG) a standard uptake of approximately 60 [...] cancer TECHNIQUE: Following IV injection of 18- tunskh-8-tyskkvllnywc (FDG) a standard uptake of approximately 60 [...] For questions regarding this report, please contact th e number below. Electronically signed by: BEVERLY Rodriguez [facility] ([phone]), at 04/21/2019 3:23 PM Jimmy Bajwa MD IMG PET ORDERABLES documented in this encounter Visit Diagnoses Diagnosis Malignant neoplasm of right lung, unspec ified part of lung Malignant neoplasm of right lung, unspec ified part of lung documented in this encounter Care Teams Property Coordinator Relationship Specialty Start Date End Date Brianne Sin MD PCP - General Family Medicine 12/24/15 02/01/[address] [place] [address] [place] [address] documented as of this encounter
--- OUTSIDE RECORDS SUMMARY | 2022-07-17 12:38 | XMS_ITS | Encounter Summary ---
:1940 Author Organization [facility] [place] [address] Care Team Providers Name Role Phone Brianne Sin MD Primary Care Provider Reason for Visit Reason Comments Lung Cancer Encounter Details Date Type Department Care Team Description 09/14/2017 Office Visit Hematology/Oncology Dell Mccauley, Mal ignant neoplasm of lower lobe of right lung; at [facility] Hypothyroidism due to drugs [address] [place] [address] [address], [place] [phone] Social History Tobacco Use Types Packs/Day Years Used Date Former Smoker Cigarettes 1 30 Quit: 10/01/19 80 Smokeless Tobacco: Never Used Alcohol Use Standard Drinks/Week Comments No 0 (1 standard drink = 0.6 oz pure alcoho l) Sex Assigned at Date Recorded Not on file documented as of this encounter Last Filed Vital Signs Vital Sign Reading Time Taken Comments Blood Pressure 136/70 09/14/2017 11:19 AM EST Pulse 79 09/14/2017 11:19 AM EST Temperature 36.4 ??C (97.5 ??F) 09/14/2017 11:19 AM EST Respiratory Rate 18 09/14/2017 11:19 AM EST Oxygen Saturation 100% 09/14/2017 11:19 AM EST Inhaled Oxygen Concentration - - Weight 67.6 kg (149 lb) 09/14/2017 11:19 AM EST Height 173 cm (5' 8.11) 09/14/2017 11:19 AM EST copied Body Mass Index 22.58 09/14/2017 11:19 AM EST documented in this encounter Progress Notes Dell Mccauley MD - 09/14/2017 11:00 AM EST Images from the original note were not included. 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 He is tolerating the infusions well, but the last few weeks the itching that he has had on and off since starting treatment has gotten a bit worse. He gets a few hours relief out of some triamcinolone cream on his ankles, but at night his itching on his back wakes him up multiple times during the evening. We talked about trying some hydrocortisone cream before he does to bed on his back, and we also talked about using Samuel's cream, perhaps with a little of the triamcinolone cream mixed in on his back as well. He was wondering about other medications such as Lyrica, although the use in itching is certainly not a primary indication. He is going to be going to [place] in a couple of days and will be there for the winter. He has follow-up appointments for continued nivolumab while there. Otherwise, he is not having any diarrhea. No eye problems. No breathing problems or discomfort or pain. He is keeping physically active and doing well. Review of systems is otherwise completely negative [...] Cycle 15 nivolumab (OPDIVO) IV 240 mg EXAMINATION: PET CT MALIK SKULL BASE TO MID-THIGH 07/29/17?? CLINICAL HISTORY: Follow up lung cancer on immunotherapy. Clinically doing well ?? TECHNIQUE: Following IV injection of 53-oztvfx-9-deoxyglucose (FDG) a standard uptake of approximately 60 [...] of recurrent or metastatic lung cancer. ?? Review of his lab today shows normal electrolytes, a creatinine of 1.44. (Our lab is a little higher on creatinines the last few days. I have given them a call to let them know that.) Liver tests are normal with an ALT of 107, bilirubin 0.67, AST 21, ALT 25. Thyroid tests are normal. White count is 4.92, hemoglobin 13.7, hematocrit 42.2, and platelets are 170. ASSESSMENT/PLAN: Parveen is fine today for his nivolumab. We talked about using some topical steroid cream for the itching. I told him it would be fine to mix in a little of the triamcinolone cream with the Samuel's cream for his back to see if that helps, and it would be most useful to apply it right before bed time, considering that is the main period of time that he has difficulty. He also has used some Benadryl spray, which was helpful when he was in [place], and he certainly could use that again. I would not put him on systemic steroids for this at the current time if this could be managed in another way. We will see him back when he returns from [place] in the spring. He will call if there are questions, issues, or problems in the interim. 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
--- OUTSIDE RECORDS SUMMARY | 2022-07-17 12:38 | XMS_ITS | Encounter Summary ---
:1940 Author Organization [facility] [place] [address] Care Team Providers Name Role Phone Brianne Sin MD Primary Care Provider Reason for Visit Reason Comments Cancer Encounter Details Date Type Department Care Team Description 07/19/2018 Office Visit Hematology/Oncology Dell Mccauley, Mal ignant neoplasm of upper lobe of right lung; at [facility] Hypothyroidism due to drugs [address] [facility] [address], [place] [address] [phone] Social History Tobacco Use Types Packs/Day Years Used Date Former Smoker Cigarettes 1 30 Quit: 10/01/19 82 Smokeless Tobacco: Never Used Alcohol Use Standard Drinks/Week Comments No 0 (1 standard drink = 0.6 oz pure alcoho l) Sex Assigned at Date Recorded Not on file documented as of this encounter Last Filed Vital Signs Vital Sign Reading Time Taken Comments Blood Pressure 136/88 07/19/2018 8:08 AM EDT Pulse 72 07/19/2018 8:08 AM EDT Temperature 36.5 ??C (97.7 ??F) 07/19/2018 8:08 AM EDT Respiratory Rate 16 07/19/2018 8:08 AM EDT Oxygen Saturation 98% 07/19/2018 8:08 AM EDT Inhaled Oxygen Concentration - - Weight 69.4 kg (153 lb) 07/19/2018 8:08 AM EDT Height 173 cm (5' 8.11) 07/19/2018 8:08 AM EDT copied Body Mass Index 23.19 07/19/2018 8:08 AM EDT documented in this encounter Progress Notes Dell Mccauley MD - 07/19/2018 8:00 AM EDT Images from the original note were not included. 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 The patient started Nivolumab May 07, 2016 with complete response Subjective: Parveen comes in today for follow-up on his non-small cell lung cancer with complete response of Nivolumab. In early June we went ahead and check a repeat PET scan. It showed some new nodules present and a short interval CT scan was recommended. Additionally Parveen has been having difficulty with severe itching and that has been getting worse the past month or so so we decided to hold treatment as far as his Nivolumab goes and reimage him with a CT scan. CT scan shows the previously noted nodules are resolved but he has a nodularity to his right pleural effusion and a small new left pleural effusion raising other concerns for possible metastatic disease. I spent time today talking to Parveen in regards to what to do in this situation. We discussed the possibility of a pleural biopsy under direct visualization with thoracic surgery versus watching this and repeating a PET scan in another 6 weeks.After long discussion with my feelings leaning toward repeating a PET scan considering he is not having any pulmonary symptoms we decided to go ahead and repeat the PET. He is taking a lot of gabapentin and with that has a little bit of nausea. Does help the itching but that still major problem for him. He does understand it may take time for that to resolve on the checkpoint inhibitor. He is not having any significant diarrhea or other autoimmune problems except for dry mouth and some eustachian tube dysfunction at times related to that as well. Past medical history and social history are reviewed and unchanged from when I saw him 3 weeks ago. Current Outpatient Prescriptions on File Prior to Visit Medication Sig Dispense Refill ??? loperamide (IMODIUM A-D) 2 mg Tablet Take by mouth 4 times daily as needed for Diarrhea. Cgykvgm26 mg in 24 hours ??? doxepin (SINEQUAN) 25 mg Capsule TAKE [...] well ?? TECHNIQUE: Following IV injection of 17-hujlhy-8-deoxyglucose (FDG) a standard uptake of approximately 60 [...] metastatic lung cancer. ? EXAMINATION: PET CT MALIK SKULL BASE TO MID-THIGH CLINICAL HISTORY: Follow-up lung cancer on immunotherapy for last 18 months TECHNIQUE: Following IV injection of 33-mkrbrj-9-deoxyglucose (FDG) a standard uptake of approximately 60 [...] active jann or extrathoracic sites of metastasis. EXAMINATION: CT CHEST W/ CLINICAL HISTORY: MALIGNANT NEOPLASM OF UPPER LOBE OF RIGHT LUNG TECHNIQUE: Helical CT of the chest was performed following intravenous administration of 100ml of Isovue-370. Multiplanar reformatted images were generated. COMPARISON: PET CT 06/03/2018 ? FINDINGS: Lungs and airways: Overall improved inflation, especially of RIGHT lower lobe. New pleural-based nodules in both lower lobes highly suspicious for metastatic disease. No change in size of 20 mm RIGHT lower lobe nodule (series 3 image 80). Previously reported subcentimeter nodules in LEFT lung not visible. Pleura and pericardium: New small LEFT pleural effusion. Slight decrease in size of RIGHT pleural effusion. New rind of soft tissue density within RIGHT pleural effusion adjacent to RIGHT hemidiaphragm (series 3 image 110). Heart and vasculature: Heart size normal. Mediastinum and hilar structures: No lymphadenopathy Limited views of the upper abdomen are normal. No focal lytic or sclerotic osseous lesion. ? Impression: New nodularity of RIGHT pleural effusion and small new LEFT pleural effusion highly suspicious for metastatic disease. Previously reported LEFT lung nodules not clearly visible. Assessment/plan: Parveen is clinically doing well as far as his breathing is going at the current time with no chest symptoms at all. He continues however to have significant pruritus and also a dry mouth and some eustachian tube dysfunction. I think this will slowly resolve over time. His new CT scan raises new questions although the previous concerns seem to resolve with the pulmonary nodules improved. I think with a changing picture like this one has to wonder if he does not have a low- grade inflammatory reaction within the lungs related to the checkpoint inhibitor. With him being symptom-free however I think at this point even if we knew this was recurrent cancer we would hold off on consideration of any chemoth erapy. We are already holding the checkpoint inhibitor. After discussion today we decided to go ahead and repeat a PET scan again in 6 weeks. If that does not show definitive tumor and the patient remains relatively asymptomatic as far as his pulmonary status goes I would favor following him with careful PET scans rather than pursuing a pleural biopsy. He is comfortable with that and will let us knowif things change. Otherwise we will see him back in 6 weeks following a PET scan [facility]. documented in this encounter Plan of Treatment Upcoming Encounters Date Type Specialty Care Team Description 10/02/2022 Office Visit Dermatology Ashok Xiong MD [address] [place] [address] [place]MATOLOGY [place], [place] [address] (Wo rk) documented as of this encounter Procedures Procedure Name Priority Date/Time Associated Diagnosis Comme nts CT SCAN (SCAN) 07/18/2018 12:00 AM Result s for this EDT procedure are i n the results section . documented in this encounter Results SCAN DOC: CT SCAN (07/18/2018 12:00 AM EDT) Narrative 07/18/2018 12:00 AM EDT This result has an attachment that is no t available. Ordered by an unspecified provider. 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
--- OUTSIDE RECORDS SUMMARY | 2022-07-17 12:38 | XMS_ITS | Encounter Summary ---
:1940 Author Organization [facility] [place] [address] Care Team Providers Name Role Phone Brianne Sin MD Primary Care Provider Reason for Visit Reason Comments Chemotherapy Cycle 9 Day 1 Nivolumab Treatment/Therapy Plan Authorization (Routine) - Closed Specialty Diagnoses / Procedures Referred By Contact Refer red To Contact Diagnoses Cancer of right lung Dell Mccauley MD [facility] Hem Onc Office [address] [place] [address] [phone] [place] [address] Phone: Fax: Referral ID Status Reason Start Date Expiration Date Visits Requ ested Visits Authorized [id number] Closed 02/15/2018 02/15/2019 1 1 Encounter Details Date Type Department Care Team Description 06/06/2018 [facility] lung [address] [place] [place] [phone] Social History Tobacco Use Types Packs/Day Years Used Date Former Smoker Cigarettes 1 30 Quit: 10/01/19 80 Smokeless Tobacco: Never Used Alcohol Use Standard Drinks/Week Comments No 0 (1 standard drink = 0.6 oz pure alcoho l) Sex Assigned at Date Recorded Not on file documented as of this encounter Progress Notes Kim Toth RN - 06/06/2018 8:30 AM EDT INFUSION THERAPY ADMINISTRATION NOTES DIAGNOSIS: NSCLC CYCLE #: Cycle 9, Day 1 -- Nivolumab REASON FOR VISIT: To receive chemotherapy. SUBJECTIVE: Arnold offers no complaints. OBJECTIVE: VSS. Seen by provider LAB DATA: WBC -5.86 , H/H - 13.9/41.8, plt Ct - 196, ANC - 4.10, Lytes wnl, BUN/CR - 23/1.47 V ACCESS: PIV Pre administration: Chemotherapy orders independently verified for drug name, route, and dosage per patient's height, weight and BSA by Georgina Toth RN and Pramod Redmond [facility]. REACTIONS (DESCRIPTION, TIME, INTERVENTION AND EFFECTIVENESS) none ASSESSMENT: Parveen was awake, alert and tolerated treatment well. PIV discontinued prior to dismissal. PLAN: Return to clinic per routine. documented in this encounter Plan of Treatment Upcoming Encounters Date Type Specialty Care Team Description 10/02/2022 Office Visit Dermatology Ashok Xiong MD [address] [facility] DERMATOLOGY [place], [place] [address] (Wo rk) documented as of this encounter Visit Diagnoses Diagnosis Malignant neoplasm of upper lobe of righ t lung Malignant neoplasm of upper lobe, bronch us or lung documented in this encounter Administered Medications Inactive Administered Medications - up to 3 most recent administrations Medication Order MAR Action Action Date Dose Rate Site nivolumab (OPDIVO) 240 mg in New Bag 06/06/2018 9:48 AM EDT 240 mg 248 mL/hr sodium chloride 0.9% 124 mL infusion 240 mg, Intravenous, ONCE, 1 dose, On 06/06/18 at 1015, Administer over 30 Minutes, Flush line with NS after each dose, This is a restricted medication. Is this being used for an FDA approved indication? Yes, This agent is restricted to outpatient use. Is this drug being given as an outpatient? Yes documented in this encounter Care Teams Online Trader Relationship Specialty Start Date End Date Brianne Sin MD PCP - General Family Medicine 12/24/15 02/01/[address] [place] [address] [place] [phone] documented as of this encounter
--- OUTSIDE RECORDS SUMMARY | 2022-07-17 12:38 | XMS_ITS | Encounter Summary ---
:1940 Author Organization [place] [address] Care Team Providers Name Role Phone Brianne Sin MD Primary Care Provider Encounter Details Date Type Department Care Team Description 06/01/2019 Office Visit Hematology/Oncology Rowan Bajwa MD Malignant neoplasm of upper lobe of righ t lung; at [facility] Hypothyroidism due to drugs; [address] [place] [address] DR Higuera [place], [place] HEMATOLOGY/[place] [address] [place] DEPT. [phone] [place], [place] [address] Social History Tobacco Use Types [...] Sign Reading Time Taken Comments Blood Pressure 146/80 06/01/2019 9:08 AM EDT Pulse 75 06/01/2019 9:08 AM EDT Temperature 36.2 ??C (97.2 ??F) 06/01/2019 9:08 AM EDT Respiratory Rate 16 06/01/2019 9:08 AM EDT Oxygen Saturation 98% 06/01/2019 9:08 AM EDT Inhaled Oxygen Concentration - - Weight 67.6 kg (149 lb) 06/01/2019 9:08 AM EDT Height 173 cm (5' 8.11) 06/01/2019 9:08 AM EDT Body Mass Index 22.58 06/01/2019 9:08 AM EDT documented in this encounter Progress Notes Jimmy Bajwa MD - 06/01/2019 10:00 AM EDT Subjective: Patient ID: Parveen [...] and pleural effusion PET scan 11/19 in [facility]: Improved Resume nivolumab in [facility] Return to [facility] 03/02/19 PET negative 04/21/19 The patient returns to the [facility]. He is receiving single agent nivolumab for his metastatic adenocarcinoma of the right lung. He has been having on and off diarrhea for quite some time. Was started on prednisone while in [place]. Still taking some prednisone but going up and down his dose depending on his symptoms. Over the last several weeks his diarrhea has worsened. Now having up to 10-12 stools per day. No formed stools.He has gone up to as high as 40 mg of prednisone. Still taking up to 8 Imodium per day. We did talk about stopping his immunotherapy. Patient Active Problem List Diagnosis Code ??? [...] as directed, Disp: 90tablet, Rfl: 3 ??? METOPROLOL SUCCINATE ORAL, Take 25 mg [...] place, and time. Labs today White count 7.7, hemoglobin 13.4, platelets 196 Creatinine 1.2 TSH 3.70 Assessment and Plan: 78-year-old man with a long history of locally advanced/metastatic adenocarcinoma of the lung. He was initially treated with carboplatinum and Alimta and for his second line therapy he was treated withnivolumab. He continues on nivolumab with good control of his disease. His PET scan from 04/19 is very reassuring that he has no active disease at this time. 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 I think we should stop the immunotherapy and give him 1 mg per kilogram of steroids. I talked with the patient about this strategy. He is willing to proceed. Stop nivolumab Prednisone 60 mg/day for 2 weeks then 40 mg/day I will see him back in 4 weeks. He will let us know if his diarrhea persists despite this strategy. 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
--- OUTSIDE RECORDS SUMMARY | 2022-07-17 12:39 | XMS_ITS | Encounter Summary ---
:1940 Author Organization [facility] [place] [address] Care Team Providers Name Role Phone Brianne Sin MD Primary Care Provider Reason for Visit Reason Comments Lung Cancer Encounter Details Date Type Department Care Team Description 04/27/2017 Office Visit Hematology/Oncology Dell Mccauley, Mal ignant neoplasm of lower lobe of right lung; at [facility] Hypothyroidism due to drugs [address] [facility] [address] [facility] [address] [place], [place] [address] [phone] Social History Tobacco Use Types Packs/Day Years Used Date Former Smoker Cigarettes 1 30 Quit: 10/01/19 80 Alcohol Use Standard Drinks/Week Comments No 0 (1 standard drink = 0.6 oz pure alcoho l) Sex Assigned at Date Recorded Not on file documented as of this encounter Last Filed Vital Signs Vital Sign Reading Time Taken Comments Blood Pressure 114/71 04/27/2017 11:03 AM EDT Pulse 61 04/27/2017 11:03 AM EDT Temperature 36.6 ??C (97.9 ??F) 04/27/2017 11:03 AM EDT Respiratory Rate 16 04/27/2017 11:03 AM EDT Oxygen Saturation 100% 04/27/2017 11:03 AM EDT Inhaled Oxygen Concentration - - Weight 66.9 kg (147 lb 6.4 oz) 04/27/2017 11:03 AM EDT Height 173 cm (5' 8.11) 04/27/2017 11:03 AM EDT copied Body Mass Index 22.34 04/27/2017 11:03 AM EDT documented in this encounter Progress Notes Dell Mccauley MD - 04/27/2017 11:00 AM EDT Images from the original note were not included. 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 He has had a complete response to the therapy and has not had any significant autoimmune problems. He continues to have the dry skin itching of the scalp and back and some fatigue with that. He also notes a dry mouth, although he does make plenty of saliva. He keeps a bottle of water with him and that seems to help. He tells me he had an upper respiratory infection a few weeks ago, but seemed to get over that in a normal way and is fine now. He had a little bit of cough for a time. Review of systems is otherwise negative. He is not having any diarrhea. No abdominal pain. No shortness of breath. Review of systems is otherwise negative with minimal cough, no respiratory problems and a negative review of systems. Current Outpatient Prescriptions on File Prior to Visit Medication Sig Dispense Refill ??? hydrOXYzine (ATARAX) 10 mg Tablet Take 1-2 tablets by mouth every night 60 tablet 2 ??? calcium-vitamin D3 600 mg calcium- 400 unit Tablet Take by mouth. ??? lactobacillus rhamnosus, GG, (CULTURELLE) 10 billion cell Capsule Take 1 capsule by mouth daily.probiotic ??? triamcinolone (ARISTOCORT) 0.5 % Cream Apply topically 3 times daily as needed. ??? cetirizine (ZYRTEC) 10 mg Tablet Take 10 mg by mouth daily. ??? enoxaparin (LOVENOX) 80 mg/0.8 mL Syringe [...] Negative. Neurological: Negative. Hematological: Negative for adenopathy. BP 114/71 (Patient Position: Sitting) Pulse 61 Temp 36.6 ??C (97.9 ??F) (Oral) Resp 16 Ht 173 cm (5' 8.11) Comment: copied Wt 66.9 kg (147 lb 6.4 oz) SpO2 100% BMI 22.34 kg/m2 Head: Normocephalic, without obvious abnormality, atraumatic Eyes: [...] supraclavicular, and axillary nodes normal Neurologic: Normal EXAMINATION: PET CT MALIK SKULL BASE TO MID-THIGH ?? CLINICAL HISTORY: Lung Cancer on Immunotherapy for past 1 year ?? TECHNIQUE: Following IV injection of 87-rtdlmn-4-deoxyglucose (FDG) a standard uptake of approximately 60 minutes, a noncontrast CT scan followed by a PET scan were acquired from the base of the skull to mid thighs. The noncontrast CT was used for anatomic localization and photon attenuation correction of the PET scan. ?? Blood glucose level: 79 (mg/dL) ?? FDG dose: 12.3 mCi ?? COMPARISON: None available. ?? FINDINGS: ?? HEAD/NECK: Normal activity in all soft tissue regions of the neck and visualized lower head. ?? CHEST: Normal activity in all soft tissue regions. Non-FDG avid right lower lobe consolidation with volume loss consistent with posttreatment change. Non-FDG avid small right pleural effusion. ?? ABDOMEN/PELVIS: Normal activity in all soft tissue regions. Small non-FDG avid left adrenal nodule is consistent with a benign adrenal adenoma. Scattered atherosclerosis of the aorta and branch vessels. Sigmoid diverticula without evidence of diverticulitis. ?? SKELETON/EXTREMITIES: Small focus of activity at the distal margin of the left clavicle with appears to been a distal clavicle excision (axial image 50), this was mentioned in prior PET/CT report of 01/04/2016 and 09/21/2015 and felt to represent chronic postsurgical change. Focally increased activity in the soft tissue lateral adjacent to the left femoral head/neck has an appearance most consistent with a focal bursitis or enthesopathy (axial image 218). Small areas of FDG avid cutaneous thickening in the left lateral lower abdominal wall (axial image 192) and in the posterior right upper thigh (axial image 276), have an appearance most consistent with areas of cutaneous inflammation. There is a suture anchor within the left humeral head consistent with prior left rotator cuff repair. ?? IMPRESSION 1. Posttreatment changes within the right lower lung with no evidence for residual active malignancy or jann metastasis. 2. No specific evidence for distant sites of metastasis. 3. Small focus of activity in the distal margin of the partially resected left clavicle, which has been mentioned on prior reports dating back to the baseline study of 09/21/2015. Images are unavailable for direct comparison. This is favored to represent a chronic inflammatory focus due to prior surgery. 4. Small areas of FDG avid cutaneous thickening in the left lateral lower abdominal wall and right posterior upper thigh are most consistent w ith areas of cutaneous inflammation. Laboratory today shows normal electrolytes. Creatinine is better at 1.29. Calcium is 9.2. ALP is 89. TSH is 3.81, and that is stable with a T4 of 7.4. CBC shows a white count of 4.75, hemoglobin of 13, hematocrit of 39.7, platelet count of 189,000 and neutrophil count of 3.41. ASSESSMENT/PLAN: Parveen is doing exceptionally well and continues to be in complete remission on nivolumab. He had some minor autoimmune problems, but nothing to necessitate a treatment change whatsoever. His thyroid axis is fine and he has no evidence for colitis, which is the most common side effect. We will go ahead with treatment today as planned and see him back in 2 weeks with a CBC, CMP, and thyroid studies. He will call if there are issues or problems in the interim. documented in this encounter Plan of Treatment Upcoming Encounters Date Type Specialty Care Team Description 10/02/2022 Office Visit Dermatology Ashok Xiong MD [address] [facility] DER[facility] [place], [place] [address] (Wo rk) documented as of this encounter Procedures Procedure Name Priority Date/Time Associated Diagnosis Comme nts LAB SCAN 04/27/2017 12:00 AM Results for this EDT procedure are i n the results section . documented in this encounter Results SCAN DOC: LAB (04/27/2017 12:00 AM EDT) Narrative 04/27/2017 12:00 AM EDT This result has an attachment that is no t available. Ordered by an unspecified provider. 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
--- OUTSIDE RECORDS SUMMARY | 2022-07-17 12:39 | XMS_ITS | Encounter Summary ---
:1940 Author Organization [facility] [place] [address] Care Team Providers Name Role Phone Brianne Sin MD Primary Care Provider Reason for Referral Diagnostic Test (Routine) - Closed Specialty Diagnoses / Procedures Referred By Contact Refer red To Contact Radiology Diagnoses 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 Dell Mccauley MD [facility] Rad Nuclear Med Procedures PET CT Malik Skull Base to Mid-Thigh [address] [place] [phone] Fax: Referral ID Status Reason Start Date Expiration Date Visits V isits Requested Authorized [id number] Closed Specialty 07/20/2017 07/20/2018 1 1 Service Requested Reason for Visit Reason Comments Lung Cancer Encounter Details Date Type Department Care Team Description 07/20/2017 Office Visit Hematology/Oncology Dell Mccauley Mal ignant neoplasm of lower lobe of right lung; at [facility] Hypothyroidism due to drugs [address] [place] [address] [place] [phone] Social History Tobacco Use Types Packs/Day Years Used Date Former Smoker Cigarettes 1 30 Quit: 10/01/19 80 Smokeless Tobacco: Never Used Alcohol Use Standard Drinks/Week Comments No 0 (1 standard drink = 0.6 oz pure alcoho l) Sex Assigned at Date Recorded Not on file documented as of this encounter Last Filed Vital Signs Vital Sign Reading Time Taken Comments Blood Pressure 128/72 07/20/2017 1:32 PM EDT Pulse 77 07/20/2017 1:32 PM EDT Temperature 36.4 ??C (97.5 ??F) 07/20/2017 1:32 PM EDT Respiratory Rate 18 07/20/2017 1:32 PM EDT Oxygen Saturation 100% 07/20/2017 1:32 PM EDT Inhaled Oxygen Concentration - - Weight 67.1 kg (148 lb) 07/20/2017 1:32 PM EDT Height 173 cm (5' 8.11) 07/20/2017 1:32 PM EDT copied Body Mass Index 22.43 07/20/2017 1:32 PM EDT documented in this encounter Progress Notes Dell Mccauley MD - 07/20/2017 1:30 PM EDT Diagnosis 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 He continues to have some pruritus and dry skin. Additionally, he has a bit of a dry mouth as well. Other than that though he is symptom free and his performance status has steadily improved over the past six months. He is not having any respiratory difficulties and he really feels quite well overall. He has no diarrhea. No bowel problems. No other difficulties. Review of systems is negative. He is going to be going back to [place] in mid August. In view of that, he would like to get his PET scan prior to leaving and we can arrange for that in late July. Otherwise though, he feels he is doing quite well overall. Review of systems is otherwise completely negative with no diarrhea, no breathing problems, no appetite problems, no jaundice or other difficulties. Current Outpatient Prescriptions on File Prior to Visit Medication Sig Dispense Refill ??? cyanocobalamin, vitamin B-12, 100 mcg Tablet Take 100 mcg by mouth daily. ??? hydrOXYzine (ATARAX) 10 mg Tablet Take 1-2 tablets by mouth every night (Patient not taking: Reported on 06/08/2017) 60 tablet 2 ??? calcium-vitamin D3 600 [...] nivolumab (OPDIVO) IV 240 mg 240 mg Laboratory today shows white count of 5.12, hemoglobin 12.7, hematocrit 39.3, platelet count 170,000. Absolute neutrophil count 3.43. CMP is fine with normal thyroid studies. ASSESSMENT/PLAN: Parveen is doing exceptionally well with no autoimmune problems whatsoever. Thyroid access is fine. He is symptom free as far as his lung cancer goes and has shown essentially a complete response on PET scanning. We have not scanned him since March and it is reasonable to go ahead and repeat that at this point. There is no new symptoms to suggest he has had progression although certainly that would be possible. We will see him back in two weeks time for his next nivolumab. We will get a PET scan prior to that visit. He will call if there are issues or problems in the interim. documented in this encounter Plan of Treatment Upcoming Encounters Date Type Specialty Care Team Description 10/02/2022 Office Visit Dermatology Ashok Xiong MD [address] [place] [address] DERMATOLOGY [place], [place] [address] (Wo rk) documented as of this encounter Results PET CT Malik Skull Base to Mid-Thigh (07/30/2017 11:53 AM EDT) Anatomical Region Laterality Modality Positron Emission To mography (PET) Specimen (Source) Anatomical Location Collection Method / Collectio n Time Received Time / Laterality Volume Impressions 07/30/2017 2:23 PM EDT There is no evidence of recurrent or metastatic lung cancer. Thank you for referring this patient to [facility]. Narrative 07/30/2017 2:23 PM EDT EXAMINATION: PET CT MALIK SKULL BASE TO MID-THIGH CLINICAL HISTORY: Follow up lung cancer on immunotherapy. ??Clinically doing well TECHNIQUE: Following IV injection of 18- mwwjpd-2-wevnzcylwlob (FDG) a standard uptake of approximately 60 minutes, a no ncontrast CT scan followed by a PET scan were acquired from the base of the skull to mid thighs. The noncontrast CT was used for anatomic localization and photo n attenuation correction of the PET scan. Blood glucose level: 76 (mg/dL) FDG dose: 11.9 mCi COMPARISON: March 26, 2017 FINDINGS: HEAD/NECK: No abnormal activity is present. There is a retention cyst in the left ma xillary antrum. ? CHEST: No abnormal activity is present. There is partial atelectasis of the righ t lower lung with a right-sided pleural effusion. These findings are not changed since the previous study. There is cardiac enlargement and a small amount of coronary artery calcification. Pulmonary parenchymal sca rring is seen at both lung apices. There is bilateral centrilobular emphysema. ? ABDOMEN/PELVIS: No abnormal activity is present. Sigmoid diverticulosis appears unchanged . SKELETON/EXTREMITIES: No significant abnormal activity is pres ent. There are postoperative changes involving the left shoulder. Increased a ctivity in the left acromioclavicular joint represents degenerative arthropath y. Decreased activity adjacent to the left femoral head consistent with a burs itis is unchanged. ? Procedure Note Jean Carlos Junior MD - 07/30/2017 EXAMINATION: PET CT MALIK SKULL BASE TO MID-THIGH CLINICAL HISTORY: Follow up lung cancer on immunotherapy. Clinically doing well TECHNIQUE: Following IV injection of 18- yqizwc-3-ahnldkahscoo (FDG) a standard uptake of approximately 60 minutes, a no ncontrast CT scan followed by a PET scan were acquired from the base of the skull to mid thighs. The noncontrast CT was used for anatomic localization and photo n attenuation correction of the PET scan. Blood glucose level: 76 (mg/dL) FDG dose: 11.9 mCi COMPARISON: March 26, 2017 FINDINGS: HEAD/NECK: No abnormal activity is present. There is a retention cyst in the left ma xillary antrum. CHEST: No abnormal activity is present. There is partial atelectasis of the righ t lower lung with a right-sided pleural effusion. These findings are not changed since the previous study. There is cardiac enlargement and a small amount of coronary artery calcification. Pulmonary parenchymal sca rring is seen at both lung apices. There is bilateral centrilobular emphysema. ABDOMEN/PELVIS: No abnormal activity is present. Sigmoid diverticulosis appears unchanged . SKELETON/EXTREMITIES: No significant abnormal activity is pres ent. There are postoperative changes involving the left shoulder. Increased a ctivity in the left acromioclavicular joint represents degenerative arthropath y. Decreased activity adjacent to the left femoral head consistent with a burs itis is unchanged. IMPRESSION There is no evidence of recurrent or met astatic lung cancer. Thank you for referring this patient to [facility]. 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
--- OUTSIDE RECORDS SUMMARY | 2022-07-17 12:39 | XMS_ITS | Encounter Summary ---
:1940 Author Organization [facility] [place] [address] Care Team Providers Name Role Phone Brianne Sin MD Primary Care Provider Reason for Visit Reason Comments Lung Cancer Encounter Details Date Type Department Care Team Description 08/25/2016 Office Visit [facility] Mccauley, Malignant neoplasm of [address] MD suh of right lung [address] [address] [place], [place] [phone] (Wo rk) Social History Tobacco Use Types Packs/Day Years Used Date Former Smoker Cigarettes 1 30 Quit: 10/01/19 80 Alcohol Use Standard Drinks/Week Comments No 0 (1 standard drink = 0.6 oz pure alcoho l) Sex Assigned at Date Recorded Not on file documented as of this encounter Last Filed Vital Signs Vital Sign Reading Time Taken Comments Blood Pressure 122/76 08/25/2016 9:23 AM EDT Pulse 65 08/25/2016 9:23 AM EDT Temperature 36.2 ??C (97.2 ??F) 08/25/2016 9:23 AM EDT Respiratory Rate 17 08/25/2016 9:23 AM EDT Oxygen Saturation 100% 08/25/2016 9:23 AM EDT Inhaled Oxygen Concentration - - Weight 64 kg (141 lb 1.5 oz) 08/25/2016 9:23 AM EDT Height - - Body Mass Index 22.15 01/07/2016 8:56 AM EST documented in this encounter Progress Notes Dell Mccauley MD - 08/25/2016 9:30 AM EDT 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 Two weeks ago after restaging, he was found to have had a complete response to treatment. He continues to do well with the treatment. He has an occasional loose stool, but his has had that as well. He is not having any rash problems. No overt diarrhea. His breathing has been great. No wheezing. No shortness of breath at all, and he notes he can take a much bigger breath than he used to be able to before this new treatment. He is quite pleased and asymptomatic except for a little bit of a dry mouth at times. Review of systems is otherwise negative. Review of systems is otherwise negative with minimal cough, no respiratory problems and a negative review of systems. Current Outpatient Prescriptions on File Prior to Visit Medication Sig Dispense Refill ??? enoxaparin (LOVENOX) 80 mg/0.8 mL Syringe Inject 80 mg subcutaneously 2 times daily. 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 lisinopril (PRINIVIL;ZESTRIL) 10 mg tablet Take 10 mg by mouth daily. ??? METOPROLOL SUCCINATE ORAL Take 25 mg by mouth 2 times daily. ??? SIMVASTATIN (ZOCOR ORAL) Take 10 mg by mouth daily. No current facility-administered medications on file prior [...] supraclavicular, and axillary nodes normal Neurologic: Normal Review of his lab today shows white count of 5.9, hemoglobin 13.1, hematocrit 40.6, platelets 178. CMP shows normal electrolytes. Calcium is 9.4, creatinine 1.1, albumin 3.9. Liver tests are normal with a total bili of 0.8, ALP of 80, ALT of 44 and AST of 32. Thyroid studies have been fine. ASSESSMENT/PLAN: Parveen is doing well and continuing to tolerate the Nivolumab quite well with no autoimmune effects that I can tell. We again discussed what we would do if he developed any of those and went over the potential side effects, although, fortunately, only about 10% of patients develop them. Some patients with complete responses have those prove over time to be durable. We certainly are going to hope for that in Parveen's case. He is going to be here in 2 weeks, so we will see him again with lab, including thyroid studies, and after that is making arrangements to continue his treatment down in [place]. He will call if there are any issues or problems in the interim. No dose changes are made today. documented in this encounter Plan of Treatment Upcoming Encounters Date Type Specialty Care Team Description 10/02/2022 Office Visit Dermatology Ashok Xiong MD [address] [place] [address] DERMATOLOGY [place] [phone] (Wo rk) documented as of this encounter Procedures Procedure Name Priority Date/Time Associated Diagnosis Comme nts LAB SCAN 08/25/2016 12:00 AM Results for this EDT procedure are i n the results section . documented in this encounter Results SCAN DOC: LAB (08/25/2016 12:00 AM EDT) Narrative This result has an attachment that is no t available. 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
--- OUTSIDE RECORDS SUMMARY | 2022-07-17 12:39 | XMS_ITS | Encounter Summary ---
:1940 Author Organization [facility] [place] [address] Care Team Providers Name Role Phone Brianne Sin MD Primary Care Provider Reason for Visit Reason Comments Lung Cancer Encounter Details Date Type Department Care Team Description 01/28/2016 Office Visit [facility] H[facility] Dell Mccauley, Malignant neoplasm of [address] lower lobe of right [address] [place] lung [address] [place], [place] [phone] (Wo rk) Social History Tobacco Use Types Packs/Day Years Used Date Former Smoker Cigarettes 30 Quit: 10/01/19 80 Alcohol Use Standard Drinks/Week Comments No 0 (1 standard drink = 0.6 oz pure alcoho l) Sex Assigned at Date Recorded Not on file documented as of this encounter Progress Notes Dell Mccauley MD - 01/28/2016 9:35 AM EDT 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 He remains on his folic acid as prescribed. He notes that his appetite has been better since the discontinuation of the carboplatin and overall he is tolerating the therapy reasonably well. He still has some burning in his eyes when he gets upright for any period of time with some runny nose as well. He is taking his steroids for three days afterwards to prevent rash and has not had any and we did discuss slowly tapering down to two days and then to one day if that works. He will go for two days this cycle. We would like to get him off of the steroid if possible. He notes he is not as winded as he was and was able to come up two flights of stairs from the cafeteria and recover nicely. He got about as short of breath as his did during the climb. He is not having any particular cough and feels reasonable overall but is a bit fatigued perhaps from the treatment still. Past medical history and social history are reviewed and unchanged from when I saw him 3 weeks. He does continue on his Lovenox twice a day. We again discussed once-a-day dosing. Current Outpatient Prescriptions on File Prior to [...] nodes normal Neurologic: Normal Review of his PET scan shows since the previous study there has been a moderate reduction in the size of the right infrahilar mass and a marked reduction in the hypermetabolism within the mass with minimal residual ring-like hypermetabolism present. The subcarinal mass previously seen is not morphologically changed, but there is marked reduction in the hypermetabolism. There continues to be postoperative changes in the right lower lung moderately large, minimal hypermetabolic pleural effusion is noted with no other activity within the chest. Review of his blood counts shows a white count of 4.3, hemoglobin 10.4, hematocrit 33.2, platelet count of 432. CMP is absolutely normal with creatinine of 1.1, normal liver tests including an ALP of 73. Calcium is normal at 9.9. Assessment/Plan: Parveen is doing well and tolerating the Alimta chemotherapy. Hemoglobin is coming up steadily and blood counts are quite a bit better on the single agent therapy. He still has some secondary effects but seems to be tolerating that. As far as his treatment related rash, it is under control and we are going to see if we can decrease his steroids. 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 Thrombocytopenia has resolved. We also spent time going over his PET scan results. He has a little bit of trouble interpreting that so we went over that in detail. We will go ahead with today's treatment and then see him back in three weeks for another cycle. documented in this encounter Plan of Treatment Upcoming Encounters Date Type Specialty Care Team Description 10/02/2022 Office Visit Dermatology Ashok Xiong MD [address] DERMATOLOGY [place], [place] [address] (Wo rk) documented as of this encounter Visit Diagnoses Diagnosis Malignant neoplasm of lower lobe of righ t lung documented in this encounter Care Teams Rn Critical Care Relationship Specialty Start Date End Date Brianne Sin MD PCP - General Family Medicine 12/24/15 02/01/[address] [place] [address] [place] [phone] documented as of this encounter
--- OUTSIDE RECORDS SUMMARY | 2022-07-17 12:39 | XMS_ITS | Encounter Summary ---
:1940 Author Organization [facility] [place] [address] Care Team Providers Name Role Phone Brianne Sin MD Primary Care Provider Reason for Visit Reason Comments Follow-up Encounter Details Date Type Department Care Team Description 01/16/2016 Office Visit Dermatology at [facility] Ashok Bearden MD Dermatitis [address] [facility] [place] [address] [place] [address] DERMATOLOGY [phone] [place], [place] [phone] (Wo rk) Social History Tobacco Use Types Packs/Day Years Used Date Former Smoker Cigarettes 1 30 Quit: 10/01/19 80 Alcohol Use Standard Drinks/Week Comments No 0 (1 standard drink = 0.6 oz pure alcoho l) Sex Assigned at Date Recorded Not on file documented as of this encounter Patient Instructions Patient InstructionsShi Gates LPN - 01/16/2016 11:22 AM EDT Images from the original note were not included. [facility] Skin Cancer Prevention: After Your Visit Your Care Instructions Skin cancer is the abnormal growth of cells in the skin. It usually appears as a growth that changesin color, shape, or size. This can be a sore that does not heal or a change in a wart or a mole. Skin cancer is almost always curable when found early and treated. So it is important to see your doctorif you have any of these changes in your skin. Skin cancer is the most common type of cancer. It often appears on areas of the body that have been exposed to the sun, such as the head, face, neck, back, chest, or shoulders. Follow-up care is a cox part of your treatment and safety. Be sure to make and go to all appointments, and call your doctor if you are having problems. It's also a good idea to know your test results and keep a list of the medicines you take. How can you care for yourself at home? ?? Wear a wide-brimmed hat and long sleeves and pants if you are going to be outdoors for a long time. ?? Avoid the sun between 10 a.m. and 4 p.m., which is the peak time for UV rays. ?? Wear sunscreen on exposed skin. Make sure the sunscreen blocks ultraviolet rays (both UVA and UVB) and has a sun protection factor (SPF) of at least 15. Use it every day, even when it is cloudy. Some doctors may recommend a higher SPF, such as 30. ?? Do not use tanning booths or sunlamps. ?? Use lip balm or cream that has sun protection factor (SPF) to protect your lips from getting sunburned or getting cold sores. ?? Wear sunglasses that block UV rays. When should you call for help? Watch closely for changes in your health, and be sure to contact your doctor if: ?? You are concerned about any problem areas on your skin. ?? You notice a change in a mole or skin growth. For example: ?? It gets bigger. ?? It develops uneven borders. ?? It gets thicker, raised, or worn down. ?? It changes color. ?? It starts to bleed easily. Where can you learn more? Visit our health information library at http://[email or web address] You can also view health information on [employer] [facility], your personal patient account. Log in or sign up today. Enter P392 in the search box to learn more about Skin Cancer Prevention: After Your Visit. ?? [phone] [employer]. Care instructions adapted under license by [facility]. This care instruction is for use with your licensed healthcare professional. If you have questionsabout a medical condition or this instruction, always ask your healthcare professional. [employer] disclaims any warranty or liability for your use of this information. Content Version: 10.4.015630; Current as of: September 14, 2014 documented in this encounter Progress Notes Ashok Xiong MD - 01/16/2016 11:55 AM EDT Problem: Followup irritant dermatitis/possible tinea/possible dermatophyte, right penile shaft. Parveen follows up, and after five days of application of the econazole nitrate cream 2% had clearance of his dermatitis. It is totally gone. He is, however, bothered by a follicular cyst in his right axillary vault. Assessment and Plan: 1. Follicular cyst, right axillary vault. a. We will schedule a half-hour appointment for excision of this at the patient's convenience. b. We discussed the procedure and treatments. 2. Resolved dermatitis, right lateral penis. a. This may have been related to his chemotherapy. b. The patient had a recent PET scan that showed stability of the size of his non-small cell adenocarcinoma of the lung following three courses of chemotherapy. He continues on Lovenox therapy for this. c. Return to clinic for cyst excision at his convenience. COPY: Brianne Sin M.D. documented in this encounter Plan of Treatment Upcoming Encounters Date Type Specialty Care Team Description 10/02/2022 Office Visit Dermatology Ashok Xiong MD [address] [facility] DERMATOLOGY [place], [place] [phone] (Wo rk) documented as of this encounter Visit Diagnoses Diagnosis Dermatitis Contact dermatitis and other eczema, due to unspecified cause documented in this encounter Care Teams Naval Surface Fire Support Planner Relationship Specialty Start Date End Date Brianne Sin MD PCP - General Family Medicine 12/24/15 02/01/[address] [place] [address] ADELIA Lewis [phone] documented as of this encounter
--- OUTSIDE RECORDS SUMMARY | 2022-07-17 12:39 | XMS_ITS | Encounter Summary ---
:1940 Author Organization [facility] [place] [address] Care Team Providers Name Role Phone Brianne Sin MD Primary Care Provider Reason for Visit Reason Comments Lung Cancer Encounter Details Date Type Department Care Team Description 12/10/2015 Office Visit [facility] M[facility]ule[facility], Malignant neoplasm of [address] lower lobe of right [address] [place] lung [address] [place], [place] [phone] (Wo rk) Social History Tobacco Use Types Packs/Day Years Used Date Former Smoker Cigarettes 1 30 Quit: 10/01/19 80 Alcohol Use Standard Drinks/Week Comments No 0 (1 standard drink = 0.6 oz pure alcoho l) Sex Assigned at Date Recorded Not on file documented as of this encounter Last Filed Vital Signs Vital Sign Reading Time Taken Comments Blood Pressure - - Pulse 82 12/10/2015 8:37 AM EST Temperature 36.3 ??C (97.3 ??F) 12/10/2015 8:37 AM EST Respiratory Rate 16 12/10/2015 8:37 AM EST Oxygen Saturation 98% 12/10/2015 8:37 AM EST Inhaled Oxygen Concentration - - Weight 67.3 kg (148 lb 4.9 oz) 12/10/2015 8:37 AM EST Height 170 cm (5' 6.93) 12/10/2015 8:37 AM EST Body Mass Index 23.28 12/10/2015 8:37 AM EST documented in this encounter Progress Notes Dell Mccauley MD - 12/10/2015 8:39 AM EST 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 He is continuing to tolerate the chemotherapy and actually has been able to put a bit of weight on. He is continuing on twice a day Lovenox and has not had any new symptoms that suggest recurrence of clot. We again discussed switching him to once a day Lovenox since this is going to be exterminator termite. The dosing instead of 1 mg per kg would be 1.5 mg per kg once a day. He is going to discuss this with [facility]. From our standpoint though, he notes he still has a runny nose and teary eyes. He is going to try some nasal steroids to see if that does not help. He has a long history of allergy problems. He does not have cough any longer and is no longer having any shortness of breath. Nausea and vomiting are being controlled with the antiemetics we are giving him and he is really not having other difficulty. He does continue on his Lovenox twice [...] Negative. Neurological: Negative. Hematological: Negative for adenopathy. Pulse 82 Temp(Src) 36.3 ??C (97.3 ??F) Resp 16 Wt 67.27 kg (148 lb 4.9 oz) SpO2 98% Head: Normocephalic, without obvious abnormality, atraumatic Eyes: [...] Normal Review of his lab today shows a white count of 2.9, hemoglobin 10.0, hematocrit 30.0, and platelet count of 134. CMP shows normal electrolytes. Alkaline phosphatase is 62, creatinine of 1.1, bilirubin of 0.5, and a calcium of 9.6. Albumin is keeping up at 3.6. Assessment/Plan: Parveen is doing well and has some evidence for significant response. He does not seem to, at least on exam, to have reaccumulated his pleural effusion. Additionally, his cough has resolved, his weight has gone up, and overall he is doing better in that regard. He is tolerating the chemotherapy well with good control of nausea and vomiting so no change needs to be done on his antiemetics. He does have some chemotherapy associated anemia, which we will continue to watch. When we see him back for consideration of a fifth cycle we will try to see if we can get a PET scan approved for comparison. The only scanning we have in our system here in [place] is a PET scan so I would prefer that study over a CT scan because it is a direct comparison. Since we will be making a decision on whether or not to consider maintenance therapy, it would be important to know if any residual mass has any uptake indicating he has persistent tumor. If he does have a favorable scan then consideration to maintenance Alimta would be made. Often, however, patients require almost six months of treatment before that occurs but as things are going well I am hopeful that we may have already achieved that. documented in this encounter Plan of Treatment Upcoming Encounters Date Type Specialty Care Team Description 10/02/2022 Office Visit Dermatology Ashok Xiong MD [address] [place] [address] DERMATOLOGY [place], [place] [address] (Wo rk) documented as of this encounter Visit Diagnoses Diagnosis Malignant neoplasm of lower lobe of righ t lung documented in this encounter Care Teams Neurology Tech Relationship Specialty Start Date End Date Brianne Sin MD PCP - General Family Medicine 10/21/15 12/23/[address] [place] [address] [place] [phone] documented as of this encounter
--- OUTSIDE RECORDS SUMMARY | 2022-07-17 12:39 | XMS_ITS | Encounter Summary ---
:1940 Author Organization [facility] [place] [address] Care Team Providers Name Role Phone Brianne Sin MD Primary Care Provider Reason for Visit Reason Comments Lung Cancer Encounter Details Date Type Department Care Team Description 04/28/2016 Office Visit [facility] H[facility] Dell Mccauley, Malignant neoplasm of [address] lower lobe of right [address] [place] [address] [place], [place] [phone] (Wo rk) Social History Tobacco Use Types Packs/Day Years Used Date Former Smoker Cigarettes 1 30 Quit: 10/01/19 80 Alcohol Use Standard Drinks/Week Comments No 0 (1 standard drink = 0.6 oz pure alcoho l) Sex Assigned at Date Recorded Not on file documented as of this encounter Last Filed Vital Signs Vital Sign Reading Time Taken Comments Blood Pressure 140/92 04/28/2016 11:20 AM EDT Pulse 72 04/28/2016 11:20 AM EDT Temperature 36.4 ??C (97.5 ??F) 04/28/2016 11:20 AM EDT Respiratory Rate 16 04/28/2016 11:20 AM EDT Oxygen Saturation 99% 04/28/2016 11:20 AM EDT Inhaled Oxygen Concentration - - Weight 65.9 kg (145 lb 4.5 oz) 04/28/2016 11:20 AM EDT Height - - Body Mass Index 22.8 01/07/2016 8:56 AM EST documented in this encounter Progress Notes Dell Mccauley MD - 04/28/2016 11:23 AM EDT 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 He has been off treatment for a while because of moderately severe fatigue that he had on treatment. He is pleased that that has gone away and he is feeling better overall. He is not having any breathing difficulties. His appetite is great, although he has really not been able to put on any weight. He has not lost any either. Essentially, review of systems is negative. Current Outpatient Prescriptions on File Prior to [...] axillary nodes normal Neurologic: Normal Review of the patient's PET scan does show some mild progression. He has a single new right paratracheal lymph node that measures about 2 cm in size. He also has a slight increase in size of an additional lymph node that was present previously going from 2.0 x 1.6 cm to 2.7 x 2.2 cm. His primary lung tumor and associated adenopathy is all unchanged in size but is more highly active with a higher SUV going from 10.1 to 10.7, indicating increased activity of the tumor in those sites. Review of his lab today shows white count of 3.6, hemoglobin 12.1, hematocrit 39.3, and a platelet count of 164,000. CMP is completely normal with normal liver tests, a calcium of 9.4, creatinine of 1.1. ASSESSMENT/PLAN: Parveen is showing some early signs of progressive disease off of treatment. That is not surprising overall. He really is not excited about the prospect of further chemotherapy, but we discussed second line treatment which is indicated with immunotherapy and a checkpoint inhibitor Nivolumab. Went over risks and side effects of treatment in detail, including the autoimmune effects and the possibility of those and how they would be treated. We also talked about some patient's having flare reactions, making radiology a bit difficult to use to follow in this situation. We also have to add in clinical factors and if the patient is doing well despite the x-ray doing worse, sometimes it does indicate an overall flare reaction and not progressive disease. After discussions today, we did chemotherapy teaching and Parveen would like to try treatment. We will arrange to see him next week for his first infusion, checking thyroid test, CBC, and CMP prior to each infusion every 2 weeks. There are patients with durable long-term responses on that treatment and certainly that is what we hope for. Overall response rate is around 20%. documented in this encounter Plan of Treatment Upcoming Encounters Date Type Specialty Care Team Description 10/02/2022 Office Visit Dermatology Ashok Xiong MD [address] [facility] DERMATOLOGY [place], [place] [address] (Wo rk) documented as of this encounter Visit Diagnoses Diagnosis Malignant neoplasm of lower lobe of righ t lung documented in this encounter Care Teams Consulting Nurse Relationship Specialty Start Date End Date Brianne Sin MD PCP - General Family Medicine 12/24/15 02/01/[address] [place] [address] [place] [phone] documented as of this encounter
--- OUTSIDE RECORDS SUMMARY | 2022-07-17 12:39 | XMS_ITS | Encounter Summary ---
:1940 [place] [address] Care Team Providers Name Role Phone Brianne Sin MD Primary Care Provider Reason for Visit Reason Comments Dermatitis Encounter Details Date Type Department Care Team Description 12/24/2015 [facility] Terri JANE dermatitis, contact [address] [facility] dermatitis due to [place] B DERMATOLOGY unspecified agent [place], [place] [id number] [phone] Social History Tobacco Use Types Packs/Day Years Used Date Former Smoker Cigarettes 30 Quit: 10/01/19 80 Alcohol Use Standard Drinks/Week Comments No 0 (1 standard drink = 0.6 oz pure alcoho l) Sex Assigned at Date Recorded Not on file documented as of this encounter Patient Instructions Patient InstructionsShi Gates LPN - 12/24/2015 1:10 PM EST Images from the original note were not included. [facility] Dermatitis: After Your Visit Your Care Instructions Dermatitis is the general name used for any rash or inflammation of the skin. Different kinds of dermatitis cause different kinds of rashes. Common causes of a rash include new medicines, plants (such as poison oak or poison daniel), heat, stress, and allergies to soaps, cosmetics, detergents, chemicals,and fabrics. Certain illnesses can also cause a rash. Unless caused by an infection, these rashes cannot be spread from person to person. How long your rash will last depends on what caused it. Rashes may last a few days or months. Follow-up care is a cox part of your treatment and safety. Be sure to make and go to all appointments, and call your doctor if you are having problems. It???s also a good idea to know your test resultsand keep a list of the medicines you take. How can you care for yourself at home? ?? Do not scratch. Cut your nails short, and file them smooth. Or you may wear gloves if this helps keep you from scratching. ?? If you use soap on the rash, choose a gentle soap and use as little as possible. ?? Put cold, wet cloths on the rash to reduce itching. ?? Keep cool, and stay out of the sun. Heat makes itching worse. ?? Leave the rash open to the air when you can. If your clothes have to cover the rash, wear cotton or silk. ?? If the rash itches, use hydrocortisone cream. Follow the directions on the label. Calamine lotionmay help for plant rashes. ?? Try an azjm-pvf-nardhvg antihistamine such as diphenhydramine (Benadryl) or chlorpheniramine (Chlor-Trimeton). Follow the directions on the label. ?? If you get a prescription steroid cream or pills, use them as directed. When should you call for help? Call your doctor now or seek immediate medical care if: ?? You have signs of infection, such as: ?? Increased pain, swelling, warmth, or redness. ?? Red streaks leading from the rash. ?? Pus draining from the rash. ?? A fever. ?? You have joint pain along with the rash. ?? The rash gets worse or spreads to other parts of your body. Watch closely for changes in your health, and be sure to contact your doctor if: ?? You do not get better after 2 to 3 weeks of home treatment. Where can you learn more? Visit our health information library at [email or web address] You can also view health information on [employer], your personal patient account. Log in or sign up today. Enter F270 in the search box to learn more about Dermatitis: After Your Visit. ?? [id number] [employer]. Care instructions adapted under license by [facility]. This care instruction is for use with your licensed healthcare professional. If you have questionsabout a medical condition or this instruction, always ask your healthcare professional. [employer] disclaims any warranty or liability for your use of this information. Content Version: 10.4.841718; Current as of: January 10, 2014 documented in this encounter Progress Notes Ashok Xiong MD - 12/24/2015 1:16 PM EST Problem: Right penile shaft lesion. Parveen follows up for a check of a dermatitis that has developed in recent weeks on the right distal penile shaft laterally, just behind the marie. 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 Initial reports were that his tumor has shrunk significantly from its 5- to 5.5-cm original size. He is cautiously optimistic. I normally see Parveen roughly once yearly for treatment of irritated seborrheic keratoses. Physical examination reveals a pleasant, 75-year-old gentleman who has light erythema and edema of the right distal penile shaft behind the marie. There is some slight crust/scab present. He has no rash otherwise on the scrotum, inguinal folds, or the rest of the penile shaft. There is no rash elsewhere. Assessment and Plan: Irritant dermatitis, question possible irritant dermatitis, right lateral penis. a. I suspect this is related to his chemotherapy. b. I reassured him it does not appear to be an STD. He has been in a monogamous relationship with his for 40 years. c. I recommended that I see him again in another two weeks for repeat check after he has used the econazole nitrate 2% cream for two weeks b.i.d. COPY: Brianne Sin M.D. documented in this encounter Plan of Treatment Upcoming Encounters Date Type Specialty Care Team Description 10/02/2022 Office Visit Dermatology Ashok Xiong MD [address] [place] [address] DERMATOLOGY [place] [phone] (Wo rk) documented as of this encounter Visit Diagnoses Diagnosis Irritant contact dermatitis, contact kandace matitis due to unspecified agent documented in this encounter Care Teams Production Generalist Relationship Specialty Start Date End Date Brianne Sin MD PCP - General Family Medicine 12/24/15 02/01/[address] [place] [address] [place] [phone] documented as of this encounter
--- OUTSIDE RECORDS SUMMARY | 2022-07-17 12:39 | XMS_ITS | Encounter Summary ---
:1940 Author Organization [facility] [place] [address] Care Team Providers Name Role Phone Brianne Sin MD Primary Care Provider Reason for Visit Reason Comments Chemotherapy Nivolumab, Cycle 8, Day 1 Treatment/Therapy Plan Authorization (Routine) - Closed Specialty Diagnoses / Procedures Referred By Contact Refer red To Contact Diagnoses 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 Dell Mccauley MD [facility] Hem Onc Infusion [address] [place] [address] 151 [address] [place] [address] Phone: Fax: Referral ID Status Reason Start Date Expiration Date Visits Requ ested Visits Authorized [id number] Closed 02/16/2017 02/16/2018 1 1 Encounter Details Date Type Department Care Team Description 05/25/2017 [facility] lobe of right lung [address] [place] [phone] Social History Tobacco Use Types Packs/Day Years Used Date Former Smoker Cigarettes 1 30 Quit: 10/01/19 80 Alcohol Use Standard Drinks/Week Comments No 0 (1 standard drink = 0.6 oz pure alcoho l) Sex Assigned at Date Recorded Not on file documented as of this encounter Progress Notes Sol Menchaca RN - 05/25/2017 1:00 PM EDT INFUSION THERAPY ADMINISTRATION NOTES DIAGNOSIS: NSCLC CYCLE #: Cycle 8, Day 1 REASON FOR VISIT: Nivolumab infusion SUBJECTIVE: Parveen offers no complaints. OBJECTIVE: VSS. Weight stbale. Seen by provider. LAB DATA: WBC - 5.54, Hgb 13.[address] - 192, ANC - 3.15, Creat 1.45, TSH 4.17 IV ACCESS: PIV Pre administration: Chemotherapy orders independently verified for drug name, route, and dosage per patient's height, weight and BSA by Sol Menchaca RN and James Mcghee [facility]. REACTIONS (DESCRIPTION, TIME, INTERVENTION AND EFFECTIVENESS) none ASSESSMENT: Parveen awake, alert and tolerated treatment well. PIV discontinued prior to dismissal. PLAN: Return to clinic per routine. documented in this encounter Plan of Treatment Upcoming Encounters Date Type Specialty Care Team Description 10/02/2022 Office Visit Dermatology Ashok Xiong MD [address] [facility] DERMATOLOGY [place], [place] [address] (Wo rk) documented as of this encounter Visit Diagnoses Diagnosis Malignant neoplasm of lower lobe of righ t lung documented in this encounter Administered Medications Inactive Administered Medications - up to 3 most recent administrations Medication Order MAR Action Action Date Dose Rate Site nivolumab (OPDIVO) 240 mg in New Bag 05/25/2017 1:19 PM EDT 240 mg 124 mL/hr sodium chloride 0.9% 124 mL infusion 240 mg, Intravenous, ONCE, 1 dose, On Wed05/25/17 at 1415, Administer over 60 Minutes, Flush line with NS after each dose, This is a restricted medication. Is this being used for an FDA approved indication? Yes, This agent is restricted to outpatient use. Is this drug being given as an outpatient? Yes documented in this encounter Care Teams Support Specialist Relationship Specialty Start Date End Date Brianne Sin MD PCP - General Family Medicine 12/24/15 02/01/[address] [place] [address] [place] [address] documented as of this encounter
--- OUTSIDE RECORDS SUMMARY | 2022-07-17 12:39 | XMS_ITS | Encounter Summary ---
:1940 Author Organization [facility] [address] Care Team Providers Name Role Phone Brianne Sin MD Primary Care Provider Reason for Visit Reason Comments Lung Cancer Encounter Details Date Type Department Care Team Description 05/25/2017 Office Visit Hematology/Oncology Dell Mccauley, Mal ignant neoplasm of lower lobe of right lung; at [facility] Hypothyroidism due to drugs [address] [place] [address] [address], [place] [phone] Social History Tobacco Use Types Packs/Day Years Used Date Former Smoker Cigarettes 1 30 Quit: 10/01/19 80 Alcohol Use Standard Drinks/Week Comments No 0 (1 standard drink = 0.6 oz pure alcoho l) Sex Assigned at Date Recorded Not on file documented as of this encounter Last Filed Vital Signs Vital Sign Reading Time Taken Comments Blood Pressure 126/71 05/25/2017 12:11 PM EDT Pulse 64 05/25/2017 12:11 PM EDT Temperature 36.3 ??C (97.3 ??F) 05/25/2017 12:11 PM EDT Respiratory Rate 16 05/25/2017 12:11 PM EDT Oxygen Saturation 100% 05/25/2017 12:11 PM EDT Inhaled Oxygen Concentration - - Weight 66 kg (145 lb 9.6 oz) 05/25/2017 12:11 PM EDT Height 173 cm (5' 8.11) 05/25/2017 12:11 PM EDT copied Body Mass Index 22.07 05/25/2017 12:11 PM EDT documented in this encounter Progress Notes Dell Mccauley MD - 05/25/2017 12:00 PM EDT 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 He is continuing to tolerate the infusions with only a bit of dry mouth and a bit of fatigue with the treatments. He feels well otherwise and is breathing well and is now up to 3 miles on his treadmill. We have also been following his thyroid function, which did show a slight increase in TSH last time without a corresponding decrease in T4. I am pleased to be able to tell him the trend has not continues and TSH has started back down again. Review of systems is otherwise completely negative [...] Cycle 7 nivolumab (OPDIVO) IV 240 mg Laboratory today shows a white count of 5.54, hemoglobin 13.9, hematocrit 42%, platelet count of 192, CMP show normal electrolytes, a creatinine of 1.45 which is normal for him, ALP is 95, AST is 18, ALT 24, TSH 4.17, and T4 is 8.4. ASSESSMENT/PLAN: Parveen continues to do well on the Nivolumab with scanning indicating he has had a complete response, which so far is proving to be durable. We will go ahead with treatment today and see him back in 2 weeks with lab. We will continue to follow his thyroid axis and he will continue to keep a water bottle at hand for his mild dry mouth. I think his improvement in exercise tolerance is good. An additional question was asked today concerning whether or not to stop him on Lovenox. Considering he has a history of a deep venous thrombosis and we are treating him for cancer, I would not favor taking him off of the Lovenox which I continued at the current dosage once a day. documented in this encounter Plan of Treatment Upcoming Encounters Date Type Specialty Care Team Description 10/02/2022 Office Visit Dermatology Ashok Xiong MD [address] [facility] DERMATOLOGY [place], [place] [address] (Wo rk) documented as of this encounter Procedures Procedure Name Priority Date/Time Associated Diagnosis Comme nts LAB SCAN 05/25/2017 12:00 AM Results for this EDT procedure are i n the results section . documented in this encounter Results SCAN DOC: LAB (05/25/2017 12:00 AM EDT) Narrative 05/25/2017 12:00 AM EDT This result has an attachment that is no t available. Ordered by an unspecified provider. 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
--- OUTSIDE RECORDS SUMMARY | 2022-07-17 12:39 | XMS_ITS | Encounter Summary ---
:1940 Author Organization [facility] [place] [address] Care Team Providers Name Role Phone Brianne Sin MD Primary Care Provider Reason for Visit Reason Comments Chemotherapy Nivolumab Cycle 9 Day 1 Treatment/Therapy Plan Authorization (Routine) - Closed Specialty Diagnoses / Procedures Referred By Contact Refer red To Contact Diagnoses 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 Dell Mccauley MD [facility] Hem Onc Infusion [address] [place] [address] [address] [place] [address] Phone: Fax: Referral ID Status Reason Start Date Expiration Date Visits Requ ested Visits Authorized [id number] Closed 02/16/2017 02/16/2018 1 1 Encounter Details Date Type Department Care Team Description 06/08/2017 Infusion Hematology Oncology at [facility] lignant neoplasm of lower [facility] lobe of right lung [address] [place] [phone] Social History Tobacco Use Types Packs/Day Years Used Date Former Smoker Cigarettes 1 30 Quit: 10/01/19 80 Smokeless Tobacco: Never Used Alcohol Use Standard Drinks/Week Comments No 0 (1 standard drink = 0.6 oz pure alcoho l) Sex Assigned at Date Recorded Not on file documented as of this encounter Progress Notes Kim Toth RN - 06/08/2017 10:00 AM EDT INFUSION THERAPY ADMINISTRATION NOTES DIAGNOSIS: NSCLC CYCLE #:9 Day 1 REASON FOR VISIT: Nivolumab SUBJECTIVE Arnold offers no complaints. OBJECTIVE LAB DATA: WBC 5.2, HGB12.8, PLT 161, ANC 3.15, Lytes WNL, BUN 33, Cr 1.39, TSH 5.49 IV ACCESS: PIV started in left hand, blood return present and flushes easily Pre administration: Chemotherapy orders independently verified for drug name, route, and dosage per patient's height, weight and BSA by Kim Arzola RN & Francie Contreras RPh REACTIONS (DESCRIPTION, TIME, INTERVENTION AND EFFECTIVENESS) none ASSESSMENT Parveen was awake, alert and tolerated treatment well. PLAN Return to clinic per routine. documented in this encounter Plan of Treatment Upcoming Encounters Date Type Specialty Care Team Description 10/02/2022 Office Visit Dermatology Ashok Xiong MD [address] [facility] DERMATOLOGY [place], [place] [address] (Wo rk) documented as of this encounter Procedures Procedure Name Priority Date/Time Associated Diagnosis Comme nts LAB SCAN 06/08/2017 12:00 AM Results for this EDT procedure are i n the results section . documented in this encounter Results SCAN DOC: LAB (06/08/2017 12:00 AM EDT) Narrative 06/08/2017 12:00 AM EDT This result has an [...] nivolumab (OPDIVO) 240 mg in New Bag 06/08/2017 10:53 AM EDT 240 m g 124 mL/hr sodium chloride 0.9% 124 mL infusion 240 mg, Intravenous, ONCE, 1 dose, On Wed06/08/17 at 1145, Administer over 60 Minutes, Flush line with NS after each dose, This is a restricted medication. Is this being used for an FDA approved indication? Yes, This agent is restricted to outpatient use. Is this drug being given as an outpatient? Yes documented in this encounter Care Teams Laser Machine Operator Relationship Specialty Start Date End Date Brianne Sin MD PCP - General Family Medicine 12/24/15 02/01/[address] [place] [address] [place] [phone] documented as of this encounter
--- OUTSIDE RECORDS SUMMARY | 2022-07-17 12:39 | XMS_ITS | Encounter Summary ---
:1940 Author Organization [facility] [place] [address] Care Team Providers Name Role Phone Brianne Sin MD Primary Care Provider Reason for Visit Reason Comments Chemotherapy Nivolumab, Cycle 11, Day 1 Treatment/Therapy Plan Authorization (Routine) - Closed Specialty Diagnoses / Procedures Referred By Contact Refer red To Contact Diagnoses 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 Dell Mccauley MD [facility] Hem Onc Infusion [address] [place] [address] 805 96 [place] [address] Phone: Fax: Referral ID Status Reason Start Date Expiration Date Visits Requ ested Visits Authorized [id number] Closed 02/16/2017 02/16/2018 1 1 Encounter Details Date Type Department Care Team Description 07/06/2017 [facility] lobe of right lung [address] [place] [phone] Social History Tobacco Use Types Packs/Day Years Used Date Former Smoker Cigarettes 30 Quit: 10/01/19 80 Smokeless Tobacco: Never Used Alcohol Use Standard Drinks/Week Comments No 0 (1 standard drink = 0.6 oz pure alcoho l) Sex Assigned at Date Recorded Not on file documented as of this encounter Progress Notes Sol Menchaca RN - 07/06/2017 12:30 PM EDT INFUSION THERAPY ADMINISTRATION NOTES DIAGNOSIS: NSCLC CYCLE #: Cycle 11, Day 1 REASON FOR VISIT: Nivolumab infusion SUBJECTIVE: Parveen offers no complaints. OBJECTIVE: VSS. Weight stable. LAB DATA: WNL for today's infusion IV ACCESS: PIV Pre administration: Chemotherapy orders independently verified for drug name, route, and dosage per patient's height, weight and BSA by Sol Menchaca RN and Pearson [facility]. REACTIONS (DESCRIPTION, TIME, INTERVENTION AND EFFECTIVENESS) none ASSESSMENT: Parveen awake, alert and tolerated treatment well. PIV discontinued prior to dismissal. PLAN: Return to clinic per routine. documented in this encounter Plan of Treatment Upcoming Encounters Date Type Specialty Care Team Description 10/02/2022 Office Visit Dermatology Ashok Xiong MD [address] [place] [address] DERMATOLOGY [place], [place] [address] (Wo rk) documented as of this encounter Procedures Procedure Name Priority Date/Time Associated Diagnosis Comme nts LAB SCAN 07/06/2017 12:00 AM Results for this EDT procedure are i n the results section . documented in this encounter Results SCAN DOC: LAB (07/06/2017 12:00 AM EDT) Narrative 07/06/2017 12:00 AM EDT This result has an [...] nivolumab (OPDIVO) 240 mg in New Bag 07/06/2017 1:25 PM EDT 240 mg 124 mL/hr sodium chloride 0.9% 124 mL infusion 240 mg, Intravenous, ONCE, 1 dose, On Wed07/06/17 at 1415, Administer over 60 Minutes, Flush line with NS after each dose, This is a restricted medication. Is this being used for an FDA approved indication? Yes, This agent is restricted to outpatient use. Is this drug being given as an outpatient? Yes documented in this encounter Care Teams Supply And Distribution Manager Relationship Specialty Start Date End Date Brianne Sin MD PCP - General Family Medicine 12/24/15 02/01/[address] [place] [address] [place] [address] documented as of this encounter
--- OUTSIDE RECORDS SUMMARY | 2022-07-17 12:39 | XMS_ITS | Encounter Summary ---
:1940 Author Organization [facility] [place] [address] Care Team Providers Name Role Phone Brianne Sin MD Primary Care Provider Reason for Visit Reason Comments Lung Cancer Encounter Details Date Type Department Care Team Description 11/19/2015 Office Visit [facility] Dell Mccauley, Malignant neoplasm of [address] overlapping sites of [address] right lung [phone] [place], [place] [phone] (Wo rk) Social History Tobacco Use Types Packs/Day Years Used Date Former Smoker Cigarettes 1 30 Quit: 10/01/19 80 Alcohol Use Standard Drinks/Week Comments No 0 (1 standard drink = 0.6 oz pure alcoho l) Sex Assigned at Date Recorded Not on file documented as of this encounter Last Filed Vital Signs Vital Sign Reading Time Taken Comments Blood Pressure 107/71 11/19/2015 11:58 AM EST Pulse 75 11/19/2015 11:58 AM EST Temperature - - Respiratory Rate 16 11/19/2015 11:58 AM EST Oxygen Saturation 98% 11/19/2015 11:58 AM EST Inhaled Oxygen Concentration - - Weight 66.8 kg (147 lb 4.3 oz) 11/19/2015 11:58 AM EST Height - - Body Mass Index 23.11 10/01/2015 2:54 PM EST documented in this encounter Progress Notes Dell Mccauley MD - 11/19/2015 11:47 AM EST 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 His last cycle went well with him taking dexamethasone for three days after treatment. With that, he did not get a significant rash this time. He does have some chronic dry skin in the valle on his ankles and he is using some triamcinolone cream he got by prescription sparingly for that. It seems to be helping. He has some very subtle fatigue but otherwise is essentially doing fine with the chemotherapy with no nausea or vomiting although his appetite has not picked up. His breathing is reasonable and he has minimal cough. He is not having any chest pain or other discomfort. He denies any hemoptysis. He does continue on his Lovenox twice [...] Negative. Neurological: Negative. Hematological: Negative for adenopathy. There were no vitals taken for this visit. Head: Normocephalic, without obvious abnormality, atraumatic Eyes: [...] lab today shows a white count of 2.3, hemoglobin 11.4, hematocrit 34.4, platelet count 248. Absolute neutrophil count is 1.26. CMP is normal with a creatinine of 1.1, normal liver tests including an ALP of 66 and a normal calcium at 9.8. Assessment/Plan: Parveen is doing well overall and seems to be overall improved although it is a bit difficult to tell. He certainly has less cough and he has not, at least on exam, reaccumulated his pleural fluid. He is asymptomatic as far as breathing goes and I am hopeful that restaging after four cycles of treatment will show a meaningful response. We again discussed the possibility of maintenance Alimta chemotherapy once we have maximized his response from doublet treatment. He has a good understanding of that. We also discussed second line treatment today. As far as dosing goes, he does seem to be a little bit lower on his white count this time but counts are adequate so no dose changes are made. I did tell him there is a chance for a dose delay in three weeks if he is neutropenic. As noted, we will go ahead with treatment today and see him back in three weeks for a fourth cycle before restaging. He will call if there are issues or problems in the interim. documented in this encounter Plan of Treatment Upcoming Encounters Date Type Specialty Care Team Description 10/02/2022 Office Visit Dermatology Ashok Xiong MD [address] DERMATOLOGY [place], [place] [address] (Wo rk) documented as of this encounter Visit Diagnoses Diagnosis Malignant neoplasm of overlapping sites of right lung documented in this encounter Care Teams Information Operator Relationship Specialty Start Date End Date Brianne Sin MD PCP - General Family Medicine 10/21/15 12/23/[address] [place] [phone] documented as of this encounter
--- OUTSIDE RECORDS SUMMARY | 2022-07-17 12:39 | XMS_ITS | Encounter Summary ---
:1940 Author Organization [place] [address] Care Team Providers Name Role Phone Brianne Sin MD Primary Care Provider Reason for Visit Reason Comments Chemotherapy Cycle 10, Day 1 Nivolumab Encounter Details Date Type Department Care Team Description 06/22/2017 Infusion Hematology Oncology at [facility] neoplasm of lower [facility] lobe of right lung [address] [place] [phone] Social History Tobacco Use Types Packs/Day Years Used Date Former Smoker Cigarettes 1 30 Quit: 10/01/19 80 Smokeless Tobacco: Never Used Alcohol Use Standard Drinks/Week Comments No 0 (1 standard drink = 0.6 oz pure alcoho l) Sex Assigned at Date Recorded Not on file documented as of this encounter Progress Notes Kim Toth RN - 06/22/2017 10:00 AM EDT INFUSION THERAPY ADMINISTRATION NOTES DIAGNOSIS: NSCLC CYCLE #:10 REASON FOR VISIT: Nivolumab SUBJECTIVE Arnold offers no complaints. OBJECTIVE LAB DATA: WNL for treatment IV ACCESS: PIV Right forearm started. Due to evacuation of the building the patient did not get any medications. Was safely evacuated withno harm. IV taken out and pt discharged. Pt notified that he will get a call from the clinic to be rescheduled for treatment. PLAN Return to clinic when notified documented in this encounter Plan of Treatment Upcoming Encounters Date Type Specialty Care Team Description 10/02/2022 Office Visit Dermatology Ashok Xiong MD [address] DERMATOLOGY [place], [place] [address] (Wo rk) documented as of this encounter Procedures Procedure Name Priority Date/Time Associated Diagnosis Comme nts LAB SCAN 06/22/2017 12:00 AM Results for this EDT procedure are i n the results section . documented in this encounter Results SCAN DOC: LAB (06/22/2017 12:00 AM EDT) Narrative 06/22/2017 12:00 AM EDT This result has an attachment that is no t available. Ordered by an unspecified provider. Scanning Provider MEDIA MGR SCAN EXT ORDR/RSLT documented in this encounter Visit Diagnoses Diagnosis Malignant neoplasm of lower lobe of righ t lung documented in this encounter Care Teams Collaborative Physician Relationship Specialty Start Date End Date Brianne Sin MD PCP - General Family Medicine 12/24/15 02/01/[address] [place] [address] [place] [phone] documented as of this encounter
--- OUTSIDE RECORDS SUMMARY | 2022-07-17 12:39 | XMS_ITS | Encounter Summary ---
:1940 Author Organization [facility] [place] [address] Care Team Providers Name Role Phone Brianne Sin MD Primary Care Provider Reason for Visit Reason Comments Lung Cancer Encounter Details Date Type Department Care Team Description 06/08/2017 Office Visit Hematology/Oncology Dell Mccauley, Mal ignant neoplasm of lower lobe of right lung; at [facility] Hypothyroidism due to drugs [address] [place], [place] [address] [phone] Social History Tobacco Use Types Packs/Day Years Used Date Former Smoker Cigarettes 1 30 Quit: 10/01/19 80 Smokeless Tobacco: Never Used Alcohol Use Standard Drinks/Week Comments No 0 (1 standard drink = 0.6 oz pure alcoho l) Sex Assigned at Date Recorded Not on file documented as of this encounter Last Filed Vital Signs Vital Sign Reading Time Taken Comments Blood Pressure 121/74 06/08/2017 9:47 AM EDT Pulse 61 06/08/2017 9:47 AM EDT Temperature 36.3 ??C (97.3 ??F) 06/08/2017 9:47 AM EDT Respiratory Rate 16 06/08/2017 9:47 AM EDT Oxygen Saturation 100% 06/08/2017 9:47 AM EDT Inhaled Oxygen Concentration - - Weight 66.3 kg (146 lb 3.2 oz) 06/08/2017 9:47 AM EDT Height 173 cm (5' 8.11) 06/08/2017 9:47 AM EDT copied Body Mass Index 22.16 06/08/2017 9:47 AM EDT documented in this encounter Progress Notes Dell Mccauley MD - 06/08/2017 9:30 AM EDT 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 He is continuing to tolerate the infusions well with his only complaints being his usual dry mouth and a bit of itching overall. Energy levels are good. His breathing is fine. He has been working on increasing his exercise tolerance and is working out now and that is working out well for him. 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 He is back to a normal routine as far as his life goes and that is good to see. Review of systems is otherwise completely negative with no diarrhea, no breathing problems, no appetite problems, no jaundice or other difficulties. Current Outpatient Prescriptions on File Prior to Visit Medication Sig Dispense Refill ??? calcium-vitamin D3 600 mg calcium- 400 unit Tablet Take by mouth. ??? lactobacillus rhamnosus, GG, (CULTURELLE) 10 billion cell Capsule Take 1 capsule by mouth daily.probiotic ??? enoxaparin (LOVENOX) 80 mg/0.8 mL Syringe Inject 100 mg subcutaneously daily. 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 cyanocobalamin, vitamin B-12, 100 mcg Tablet Take 100 mcg by mouth daily. ??? hydrOXYzine (ATARAX) 10 mg Tablet Take 1-2 tablets by mouth every night (Patient not taking: Reported on 06/08/2017) 60 tablet 2 ??? triamcinolone (ARISTOCORT) 0.5 % Cream Apply [...] Cycle 7 nivolumab (OPDIVO) IV 240 mg Review of the patient's laboratory shows a white count of 5.2, hemoglobin 12.8, hematocrit 38.4, platelet count 161. CMP shows normal electrolytes. Creatinine is stable for him at 1.39. His alkaline phosphatase is 90, AST 17, ALT 21, calcium 9. TSH is stable at 5.49 with a T4 normal at 7.7. ASSESSMENT/PLAN: Parveen is doing well and has no evidence of any autoimmune problems or thyroid dysfunction with his nivolumab. He does have some itching which I think is treatment related, and I thing perhaps the dry mouth is as well, but they have been stable and the symptoms have no associated GI, liver or lung toxicity. We will go ahead with infusion today as planned. We will see him back in 2 weeks' time with lab and plan another infusion. He will call if there are issues or problems in the interim. 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
--- OUTSIDE RECORDS SUMMARY | 2022-07-17 12:39 | XMS_ITS | Encounter Summary ---
:1940 Author Organization [facility] [place] [address] Care Team Providers Name Role Phone Brianne Sin MD Primary Care Provider Reason for Referral Diagnostic Test (Routine) - Closed Specialty Diagnoses / Procedures Referred By Contact Refer red To Contact Radiology Diagnoses 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 Dell Mccauley MD [facility] Rad Nuclear Med Procedures PET CT [facility] Skull Base to Mid-Thigh [address] [place] [phone] Fax: Referral ID Status Reason Start Date Expiration Date Visits V isits Requested Authorized [id number] Closed Specialty 03/22/2017 03/22/2018 1 1 Service Requested Encounter Details Date Type Department Care Team Description 03/22/2017 Orders Only Hematology/Oncology Dell Mccauley Mal ignant neoplasm of at [facility] MD lower lobe of right [address] [place] [address] [place] [phone] (Wo rk) Social History Tobacco Use Types [...] MD [address] [facility] DERMATOLOGY [place], [place] [address] (Wo rk) documented as of this encounter Results PET CT [facility] Skull Base to Mid-Thigh (03/26/2017 9:35 AM EDT) Anatomical Region Laterality Modality Positron Emission To mography (PET) Specimen (Source) Anatomical Location Collection Method / Collectio n Time Received Time / Laterality Volume Impressions 03/26/2017 3:56 PM EDT 1. ??Posttreatment changes within the right lower lung with no evidence for residual active malignancy or jann meta stasis. 2. ??No specific evidence for distant si carlota of metastasis. 3. ??Small focus of activity in the dist al margin of the partially resected left clavicle, which has been mentioned on pr ior reports dating back to the baseline study of 09/21/2015. Images are unavaila ble for direct comparison. This is favored to represent a chronic inflammat ory focus due to prior surgery. 4. ??Small areas of FDG avid cutaneous t hickening in the left lateral lower abdominal wall and right posterior upper thigh are most consistent with areas of cutaneous inflammation. Thank you for referring this patient to [facility]. I have personally reviewed the image(s) and the residents interpretation and agree with the findings, Jimmy Gaona at 03/26/2017 3:56 PM Narrative 03/26/2017 3:56 PM EDT EXAMINATION: PET CT [facility] SKULL BASE TO MID-THIGH CLINICAL HISTORY: Lung Cancer on Immunot herapy for past 1 year TECHNIQUE: Following IV injection of 18- ufgvci-5-cqgsnnfeweor (FDG) a standard uptake of approximately 60 minutes, a no ncontrast CT scan followed by a PET scan were acquired from the base of the skull to mid thighs. The noncontrast CT was used for anatomic localization and photo n attenuation correction of the PET scan. Blood glucose level: 79 (mg/dL) FDG dose: 12.3 mCi COMPARISON: None available. FINDINGS: HEAD/NECK: Normal activity in all soft tissue regio ns of the neck and visualized lower head. ? CHEST: Normal activity in all soft tissue regio ns. Non-FDG avid right lower lobe consolidation with volume loss consisten t with posttreatment change. Non-FDG avid small right pleural effusion. ABDOMEN/PELVIS: Normal activity in all soft tissue regio ns. Small non-FDG avid left adrenal nodule is consistent with a benign adren al adenoma. Scattered atherosclerosis of the aorta and branch vessels. Sigmoid di verticula without evidence of diverticulitis. SKELETON/EXTREMITIES: Small focus of activity at the distal ma rgin of the left clavicle with appears to been a distal clavicle excision (axia l image 50), this was mentioned in prior PET/CT report of 01/04/2016 and 09/21/2015 and felt to represent chronic postsurgical change. Focally increased a ctivity in the soft tissue lateral adjacent to the left femoral head/neck h as an appearance most consistent with a focal bursitis or enthesopathy (axial im age 218). Small areas of FDG avid cutaneous thickening in the left lateral lower abdominal wall (axial image 192) and in the posterior right upper thigh ( axial image 276), have an appearance most consistent with areas of cutaneous inflammation. There is a suture anchor within the left humeral head consistent with prior left rotator cuff repair. Procedure Note Jimmy Gaona MD - 03/26/2017Formatti ng of this note might be different from the original. EXAMINATION: PET CT MALIK SKULL BASE TO MID-THIGH CLINICAL HISTORY: Lung Cancer on Immunot herapy for past 1 year TECHNIQUE: Following IV injection of 18- uhjzka-2-ibrksltuhnsc (FDG) a standard uptake of approximately 60 minutes, a no ncontrast CT scan followed by a PET scan were acquired from the base of the skull to mid thighs. The noncontrast CT was used for anatomic localization and photo n attenuation correction of the PET scan. Blood glucose level: 79 (mg/dL) FDG dose: 12.3 mCi COMPARISON: None available. FINDINGS: HEAD/NECK: Normal activity in all soft tissue regio ns of the neck and visualized lower head. CHEST: Normal activity in all soft tissue regio ns. Non-FDG avid right lower lobe consolidation with volume loss consisten t with posttreatment change. Non-FDG avid small right pleural effusion. ABDOMEN/PELVIS: Normal activity in all soft tissue regio ns. Small non-FDG avid left adrenal nodule is consistent with a benign adren al adenoma. Scattered atherosclerosis of the aorta and branch vessels. Sigmoid di verticula without evidence of diverticulitis. SKELETON/EXTREMITIES: Small focus of activity at the distal ma rgin of the left clavicle with appears to been a distal clavicle excision (axia l image 50), this was mentioned in prior PET/CT report of 01/04/2016 and 09/21/2015 and felt to represent chronic postsurgical change. Focally increased a ctivity in the soft tissue lateral adjacent to the left femoral head/neck h as an appearance most consistent with a focal bursitis or enthesopathy (axial im age 218). Small areas of FDG avid cutaneous thickening in the left lateral lower abdominal wall (axial image 192) and in the posterior right upper thigh ( axial image 276), have an appearance most consistent with areas of cutaneous inflammation. There is a suture anchor within the left humeral head consistent with prior left rotator cuff repair. IMPRESSION 1. Posttreatment changes within the righ t lower lung with no evidence for residual active malignancy or jann meta stasis. 2. No specific evidence for distant site s of metastasis. 3. Small focus of activity in the distal margin of the partially resected left clavicle, which has been mentioned on pr ior reports dating back to the baseline study of 09/21/2015. Images are unavaila ble for direct comparison. This is favored to represent a chronic inflammat ory focus due to prior surgery. 4. Small areas of FDG avid cutaneous thi ckening in the left lateral lower abdominal wall and right posterior upper thigh are most consistent with areas of cutaneous inflammation. Thank you for referring this patient to [facility]. I have personally reviewed the image(s) and the residents interpretation and agree with the findings, Jimmy Gaona at 03/26/2017 3:56 PM Dell Mccauley MD IMG PET ORDERABLES documented in this encounter Visit Diagnoses Diagnosis Malignant neoplasm of lower lobe of righ t lung Malignant neoplasm of lower lobe of righ t lung documented in this encounter Care Teams Biologist Aide Relationship Specialty Start Date End Date Brianne Sin MD PCP - General Family Medicine 12/24/15 02/01/[address] [place] [address] [place] [phone] documented as of this encounter
--- OUTSIDE RECORDS SUMMARY | 2022-07-17 12:39 | XMS_ITS | Encounter Summary ---
:1940 Author Organization [facility] [place] [address] Care Team Providers Name Role Phone Brianne Sin MD Primary Care Provider Reason for Visit Reason Comments Chemotherapy Cycle 12, Day 1 Nivolumab Treatment/Therapy Plan Authorization (Routine) - Closed Specialty Diagnoses / Procedures Referred By Contact Refer red To Contact Diagnoses 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 Dell Mccauley MD [facility] Hem Onc Infusion [address] [place] [address] [place] [phone] Phone: Fax: Referral ID Status Reason Start Date Expiration Date Visits Requ ested Visits Authorized [id number] Closed 02/16/2017 02/16/2018 1 1 Encounter Details Date Type Department Care Team Description 07/20/2017 [facility] lobe of right lung [address] [place] [phone] Social History Tobacco Use Types Packs/Day Years Used Date Former Smoker Cigarettes 1 30 Quit: 10/01/19 80 Smokeless Tobacco: Never Used Alcohol Use Standard Drinks/Week Comments No 0 (1 standard drink = 0.6 oz pure alcoho l) Sex Assigned at Date Recorded Not on file documented as of this encounter Progress Notes Kim Toth RN - 07/20/2017 2:00 PM EDT INFUSION THERAPY ADMINISTRATION NOTES DIAGNOSIS: NSCLC CYCLE #:12, Day 1 REASON FOR VISIT: Nivolumab SUBJECTIVE Parveen offers no complaints. OBJECTIVE LAB DATA: WBC 5.12, HGB/HCT 12.7/39.3, PLT 170, ANC 3.43, Lytes WNL, BUN 26, Cr 1.34 IV ACCESS: PIV right Pre administration: Chemotherapy orders independently verified for drug name, route, and dosage per patient's height, weight and BSA by Kim Toth, RN & [facility] on site. REACTIONS (DESCRIPTION, TIME, INTERVENTION AND EFFECTIVENESS) none ASSESSMENT Parveen was awake, alert and tolerated treatment well. PLAN Return to clinic per routine. documented in this encounter Plan of Treatment Upcoming Encounters Date Type Specialty Care Team Description 10/02/2022 Office Visit Dermatology Ashok Xiong MD [address] [place] [address] DERMATOLOGY [place], [place] [address] (Wo rk) documented as of this encounter Procedures Procedure Name Priority Date/Time Associated Diagnosis Comme nts LAB SCAN 07/20/2017 12:00 AM Results for this EDT procedure are i n the results section . documented in this encounter Results SCAN DOC: LAB (07/20/2017 12:00 AM EDT) Narrative 07/20/2017 12:00 AM EDT This result has an [...] nivolumab (OPDIVO) 240 mg in New Bag 07/20/2017 2:39 PM EDT 240 mg 124 mL/hr sodium chloride 0.9% 124 mL infusion 240 mg, Intravenous, ONCE, 1 dose, On Wed07/20/17 at 1530, Administer over 60 Minutes, Flush line with NS after each dose, This is a restricted medication. Is this being used for an FDA approved indication? Yes, This agent is restricted to outpatient use. Is this drug being given as an outpatient? Yes documented in this encounter Care Teams Pool Nurse Relationship Specialty Start Date End Date Brianne Sin MD PCP - General Family Medicine 12/24/15 02/01/[address] [place] [address] [place] [phone] documented as of this encounter
--- OUTSIDE RECORDS SUMMARY | 2022-07-17 12:39 | XMS_ITS | Encounter Summary ---
:1940 Author Organization [facility] [place] [address] Care Team Providers Name Role Phone Brianne Sin MD Primary Care Provider Reason for Visit Reason Comments Lung Cancer Encounter Details Date Type Department Care Team Description 06/16/2016 Office Visit [facility] Trey Mccauley, Malignant neoplasm of [address] lower lobe of right [address] [place] lung [address] [place], [place] [phone] (Wo rk) Social History Tobacco Use Types Packs/Day Years Used Date Former Smoker Cigarettes 1 30 Quit: 10/01/19 80 Alcohol Use Standard Drinks/Week Comments No 0 (1 standard drink = 0.6 oz pure alcoho l) Sex Assigned at Date Recorded Not on file documented as of this encounter Last Filed Vital Signs Vital Sign Reading Time Taken Comments Blood Pressure 122/68 06/16/2016 11:33 AM EDT Pulse 67 06/16/2016 11:33 AM EDT Temperature 36 ??C (96.8 ??F) 06/16/2016 11:33 AM EDT Respiratory Rate 16 06/16/2016 11:33 AM EDT Oxygen Saturation 99% 06/16/2016 11:33 AM EDT Inhaled Oxygen Concentration - - Weight 65.5 kg (144 lb 4.7 oz) 06/16/2016 11:33 AM EDT Height - - Body Mass Index 22.65 01/07/2016 8:56 AM EST documented in this encounter Progress Notes Trey Mccauley MD - 06/16/2016 11:30 AM EDT 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 He is continuing to tolerate the infusions well. Continues to have the sense that he is eating a lot more than he used to and is hungry all the time, but despite that is only keeping his weight stable. He also notes he has a little bit of problem swallowing, especially if the food is dry. Drinking a little water seems to help that. It has occurred since starting the nivolumab. He also notes he coughs a little bit right after he eats as well, but is really not coughing up any productive sputum. His breathing is great. His energy is great. He does feel a little more tired, though, more easily on occasion. He has not had any rash. No significant diarrhea. No darkening of the urine or other difficulties. Review of systems is otherwise negative with [...] normal Neurologic: Normal Review of the patient's blood count show a white count of 4.6, hemoglobin 11.9, hematocrit 38.3 and a platelet count of 171. CMP shows a creatinine of 1. Normal electrolytes. Sodium is 143, potassium 4, albumin is 3.6, ALP 71, SGOT is 56 with an SGPT of 52. T4 is 8.5. TSH today is 3.01. ASSESSMENT/PLAN: Clinically, Parveen is doing quite well overall. His lungs remain clear. His appetite good. Weight stable. I think the fatigue he is having is related to the nivolumab. There is no evidence for any autoimmune problems at this point with normal thyroid function, normal liver tests. No evidence of colitis or interstitial pneumonitis on exam or by symptoms. We will go ahead with today's infusion and see him back in 2 weeks for another infusion, and in 4 weeks with a doctor's visit and infusion #6. Following that, we will arrange for a PET scan for restaging. He will call if there are issues or problems in the interim. documented in this encounter Miscellaneous Notes Addendum Note - Trey Mccauley MD - 06/16/2016 12:01 PM EDT Addended by: TREY MCCAULEY on: 06/16/2016 12:01 PM Modules accepted: Level of Service documented in this encounter Plan of Treatment Upcoming Encounters Date Type Specialty Care Team Description 10/02/2022 Office Visit Dermatology Ashok Xiong MD [address] [facility] DERMATOLOGY [place], [place] [address] (Wo rk) documented as of this encounter Procedures Procedure Name Priority Date/Time Associated Diagnosis Comme nts LAB SCAN 06/30/2016 12:00 AM EDT LAB SCAN 06/16/2016 12:00 AM EDT LAB SCAN 06/16/2016 12:00 AM EDT documented in this encounter Results SCAN DOC: LAB (06/30/2016 12:00 AM EDT) Narrative This result has an attachment that is no t available. Scanning Provider MEDIA MGR SCAN EXT ORDR/RSLT SCAN DOC: LAB (06/16/2016 12:00 AM EDT) Narrative This result has an attachment that is no t available. Scanning Provider MEDIA MGR SCAN EXT ORDR/RSLT SCAN DOC: LAB (06/16/2016 12:00 AM EDT) Narrative This result has an attachment that is no t available. Scanning Provider MEDIA MGR SCAN EXT ORDR/RSLT documented in this encounter Visit Diagnoses Diagnosis Malignant neoplasm of lower lobe of righ t lung documented in this encounter Care Teams Smoked Meat Preparer Relationship Specialty Start Date End Date Brianne Sin MD PCP - General Family Medicine 12/24/15 02/01/[address] [place] [address] [place] [address] documented as of this encounter
--- OUTSIDE RECORDS SUMMARY | 2022-07-17 12:39 | XMS_ITS | Encounter Summary ---
:1940 Author Organization [facility] [place] [address] Care Team Providers Name Role Phone Brianne Sin MD Primary Care Provider Encounter Details Date Type Department Care Team Description 02/16/2017 Orders Only Hematology/Oncology at [facility], [facility] ry malignant [facility] Fatoumata Reilly RN neoplasm of right upper [facility] [address] [place] [address] Social History Tobacco Use Types Packs/Day [...] Office Visit Dermatology Ashok Xiong MD [address] [facility] [facility] [address] DERMATOLOGY [place], [place] [address] (Wo rk) documented as of this encounter Visit Diagnoses Diagnosis Primary malignant neoplasm of right uppe r lobe of lung Malignant neoplasm of upper lobe, bronch us or lung documented in this encounter Care Teams Mobile Phone Salesperson Relationship Specialty Start Date End Date Brianne Sin MD PCP - General Family Medicine 12/24/15 02/01/22 [facility] Medical [facility] [place] [phone] documented as of this encounter
--- OUTSIDE RECORDS SUMMARY | 2022-07-17 12:39 | XMS_ITS | Encounter Summary ---
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 Dell Mccauley MD [facility] Hem Onc Infusion [address] [place] [address] [place] [address] Phone: Fax: Referral ID Status Reason Start Date Expiration Date Visits Requ ested Visits Authorized [id number] Closed 02/16/2017 02/16/2018 1 1 Encounter Details Date Type Department Care Team Description 03/02/2017 Infusion [facility] of lower [place] lobe of right lung [address] [place] [phone] Social History Tobacco Use Types Packs/Day Years Used Date Former Smoker Cigarettes 1 30 Quit: 10/01/19 80 Alcohol Use Standard Drinks/Week Comments No 0 (1 standard drink = 0.6 oz pure alcoho l) Sex Assigned at Date Recorded Not on file documented as of this encounter Progress Notes Radha Martinez RN - 03/02/2017 11:30 AM EDT INFUSION THERAPY ADMINISTRATION NOTES DIAGNOSIS: NSCLC CYCLE #: Cycle 2, Day 1 -- Nivolumab REASON FOR VISIT: To receive chemotherapy SUBJECTIVE: Parveen offers no complaints. OBJECTIVE: VSS. Weight stable LAB DATA: WBC - 4.98, H/H - 12.8/39.8, Plt Ct - 183, ANC - 3.55, Lytes wnl, BUN/CR - 29/1.4 IV ACCESS: PIV Pre administration: Chemotherapy orders independently verified for drug name, route, and dosage per patient's height, weight and BSA by Damion Martinez and Laureen Contreras [facility]. REACTIONS (DESCRIPTION, TIME, INTERVENTION AND EFFECTIVENESS) none ASSESSMENT: Parveen was awake, alert and tolerated treatment well. PIV discontinued prior to dismissal. PLAN: Return to clinic per routine. documented in this encounter Plan of Treatment Upcoming Encounters Date Type Specialty Care Team Description 10/02/2022 Office Visit Dermatology Ashok Xiong MD [address] [facility] DERMATOLOGY [place], [place] [address] (Wo rk) documented as of this encounter Visit Diagnoses Diagnosis Malignant neoplasm of lower lobe of righ t lung documented in this encounter Administered Medications Inactive Administered Medications - up to 3 most recent administrations Medication Order MAR Action Action Date Dose Rate Site nivolumab (OPDIVO) 240 mg in New Bag 03/02/2017 12:16 PM EDT 240 m g 124 mL/hr sodium chloride 0.9% 124 mL infusion 240 mg, Intravenous, ONCE, 1 dose, On Wed03/02/17 at 1300, Administer over 60 Minutes, Flush line with NS after each dose, This is a restricted medication. Is this being used for an FDA approved indication? Yes, This agent is restricted to outpatient use. Is this drug being given as an outpatient? Yes documented in this encounter Care Teams Pipe Installer Relationship Specialty Start Date End Date Brianne Sin MD PCP - General Family Medicine 12/24/15 02/01/[address] [place] [address] [place] [phone] documented as of this encounter
--- OUTSIDE RECORDS SUMMARY | 2022-07-17 12:39 | XMS_ITS | Encounter Summary ---
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; at [facility] Malignant neoplasm of lower lobe of righ t lung [address] [place] [address] [address], [place] [address] [phone] Social History Tobacco Use Types Packs/Day Years Used Date Former Smoker Cigarettes 1 30 Quit: 10/01/19 80 Smokeless Tobacco: Never Used Alcohol Use Standard Drinks/Week Comments No 0 (1 standard drink = 0.6 oz pure alcoho l) Sex Assigned at Date Recorded Not on file documented as of this encounter Last Filed Vital Signs Vital Sign Reading Time Taken Comments Blood Pressure 125/82 06/22/2017 9:19 AM EDT Pulse 69 06/22/2017 9:19 AM EDT Temperature 36.4 ??C (97.5 ??F) 06/22/2017 9:19 AM EDT Respiratory Rate 16 06/22/2017 9:19 AM EDT Oxygen Saturation 100% 06/22/2017 9:19 AM EDT Inhaled Oxygen Concentration - - Weight 66.4 kg (146 lb 6.4 oz) 06/22/2017 9:19 AM EDT Height 173 cm (5' 8.11) 06/22/2017 9:19 AM EDT copied Body Mass Index 22.19 06/22/2017 9:19 AM EDT documented in this encounter Progress Notes Dell Mccauley MD - 06/22/2017 9:30 AM EDT 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 He is continuing to tolerate the infusions well with only some mild itching which was quite tolerable, and a bit of a dry mouth is the only side effects he has noticed. He is not having any bowel problems, no diarrhea, no abdominal pain, no problems with breathing and in fact, he notes his breathing is better than it has been in years. He denies cough, hemoptysis, other symptoms. Review of systems is otherwise completely negative with no diarrhea, no breathing problems, no appetite problems, no jaundice or other difficulties. Current Outpatient Prescriptions on File Prior to Visit Medication Sig Dispense Refill ??? cyanocobalamin, vitamin B-12, 100 mcg Tablet Take 100 mcg by mouth daily. ??? calcium-vitamin D3 600 mg calcium- [...] 25 mg by mouth daily as needed. ??? hydrOXYzine (ATARAX) 10 mg Tablet Take 1-2 tablets by mouth every night (Patient not taking: Reported on 06/08/2017) 60 tablet 2 No current facility-administered medications on file prior [...] nivolumab (OPDIVO) IV 240 mg 240 mg Review of his laboratory today shows normal CBC with a white count of 5.33, hemoglobin 12.9, hematocrit 39%, platelet count is 181,000, neutrophil count 3.50. CMP shows normal electrolytes, potassium 3.8. His creatinine as always is a little bit elevated at 1.58. It is not significantly changed. Calcium is 9.0. ALP is 97. TSH 4.08 and T4 of 8.6 which is essentially stable for him. ASSESSMENT/PLAN: Parveen is tolerating the nivolumab quite well and clinically appears to be continuing his complete response. He is not having any significant autoimmune problems, although I believe the itching and dry skin is probably related to the treatment as is the dry mouth. Both, fortunately, are quite tolerable. He is having no evidence of GI toxicity. Liver tests remain completely normal so there is no hepatitis and no evidence of pneumonitis clinically. Thyroid axis remains stable with normal T4, but a subtlely elevated TSH. We will continue to follow that. We will go ahead with today's treatment and see him back in 2 weeks with lab, including evaluation of thyroid status. 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
--- OUTSIDE RECORDS SUMMARY | 2022-07-17 12:39 | XMS_ITS | Encounter Summary ---
:1940 Author Organization [facility] [place] [address] Care Team Providers Name Role Phone Luis Alfredo Myers MD Primary Care Provider Reason for Visit Reason Comments Lung Cancer Encounter Details Date Type Department Care Team Description 10/15/2015 Office Visit [facility] Hosp Dell Mccauley, Malignant neoplasm of [address] right lung, [address] [place] [address] [place], [place] lung [phone] (Wo rk) Social History Tobacco Use Types Packs/Day Years Used Date Former Smoker Cigarettes 1 30 Quit: 10/01/19 80 Alcohol Use Standard Drinks/Week Comments No 0 (1 standard drink = 0.6 oz pure alcoho l) Sex Assigned at Date Recorded Not on file documented as of this encounter Last Filed Vital Signs Vital Sign Reading Time Taken Comments Blood Pressure 102/58 10/15/2015 2:32 PM EST Pulse 81 10/15/2015 2:32 PM EST Temperature - - Respiratory Rate 17 10/15/2015 2:32 PM EST Oxygen Saturation 96% 10/15/2015 2:32 PM EST Inhaled Oxygen Concentration - - Weight 68.8 kg (151 lb 10.8 oz) 10/15/2015 2:32 PM EST Height - - Body Mass Index 23.81 10/01/2015 2:54 PM EST documented in this encounter Progress Notes Dell Mccauley MD - 10/15/2015 1:50 PM EST 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 He felt well for the first couple of days and then started developing increasing fatigue, some nausea overall with poor appetite. He got some additional Compazine and Zofran from his local physician and is starting to feel a little better now. He notes he really did feel quite poorly though for a few days and we talked about how this is an expected side effect from chemotherapy but in general things get better from here on out. He does note it was tolerable. His cough is markedly improved. He has no hemoptysis at this point and the only thing that has not improved is his appetite. He has lost a couple of pounds since last week. Otherwise though, review of systems is negative. He is not having any chest pain. He does continue on his Lovenox twice [...] supraclavicular, and axillary nodes normal Neurologic: Normal Assessment/Plan: Parveen is doing well overall and appears to be having some response already with improvement in cough. I think the GI side effects are what one would expect with this chemo regimen. It sounds like with the additional medications his symptoms were controlled. We again discussed the hope that he will have a good response and can go on maintenance Alimta and that that will prove effective for quite some time. On the other hand, some patients do not respond at all. Time will tell but at least initially here with the improvement in cough I think things may be going in the proper direction. His next cycle is due in a couple of weeks and we will see him back then after Bautista with a CBC and CMP and plans on further treatment. Plans are to restage him after the fourth cycle of treatment. documented in this encounter Plan of Treatment Upcoming Encounters Date Type Specialty Care Team Description 10/02/2022 Office Visit Dermatology Ashok Xiong MD [address] [place] [address] DERMATOLOGY [place], [place] [address] (Wo rk) documented as of this encounter Visit Diagnoses Diagnosis Malignant neoplasm of right lung, unspec ified part of lung documented in this encounter Care Teams Cylinder Handler Relationship Specialty Start Date End Date Luis Alfredo Myers MD PCP - General 02/19/14 10/20/15 [address] [place] [address] documented as of this encounter
--- OUTSIDE RECORDS SUMMARY | 2022-07-17 12:39 | XMS_ITS | Encounter Summary ---
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 Dell Mccauley MD [facility] Hem Onc Infusion [address] [place] [address] [place] [address] Phone: Fax: Referral ID Status Reason Start Date Expiration Date Visits Requ ested Visits Authorized [id number] Closed 02/16/2017 02/16/2018 1 1 Encounter Details Date Type Department Care Team Description 02/16/2017 [facility] lobe of right lung [address] [place] [phone] Social History Tobacco Use Types Packs/Day Years Used Date Former Smoker Cigarettes 30 Quit: 10/01/19 80 Alcohol Use Standard Drinks/Week Comments No 0 (1 standard drink = 0.6 oz pure alcoho l) Sex Assigned at Date Recorded Not on file documented as of this encounter Progress Notes Sol Menchaca RN - 02/16/2017 9:30 AM EDT INFUSION THERAPY ADMINISTRATION NOTES DIAGNOSIS: Lung cancer CYCLE # 1, Day 1 REASON FOR VISIT: Nivolumab infusion SUBJECTIVE Arnold offers no complaints. OBJECTIVE LAB DATA: WBC 4.36, HGB 12.9, PLTS 176, ANC 2.93, Creat 1.45 IV ACCESS: Mediport Pre administration: Chemotherapy orders independently verified for drug name, route, and dosage per patient's height, weight and BSA by Sol Menchaca RN & Francie Contreras RPh. REACTIONS (DESCRIPTION, TIME, INTERVENTION AND EFFECTIVENESS) none ASSESSMENT Parveen was awake, alert and tolerated treatment well. PLAN Return to clinic per routine. documented in this encounter Plan of Treatment Upcoming Encounters Date Type Specialty Care Team Description 10/02/2022 Office Visit Dermatology Ashok Xiong MD [address] [place] [address] DERMATOLOGY [place], [place] [address] (Wo rk) documented as of this encounter Procedures Procedure Name Priority Date/Time Associated Diagnosis Comme nts LAB SCAN 02/16/2017 12:00 AM Results for this EDT procedure are i n the results section . documented in this encounter Results SCAN DOC: LAB (02/16/2017 12:00 AM EDT) Narrative 02/16/2017 12:00 AM EDT This result has an [...] nivolumab (OPDIVO) 240 mg in New Bag 02/16/2017 12:08 PM EDT 240 m g 124 mL/hr sodium chloride 0.9% 124 mL infusion 240 mg, Intravenous, ONCE, 1 dose, On Wed02/16/17 at 1230, Administer over 60 Minutes, Flush line with NS after each dose, This is a restricted medication. Is this being used for an FDA approved indication? Yes, This agent is restricted to outpatient use. Is this drug being given as an outpatient? Yes documented in this encounter Care Teams Correction Officer [employer] Relationship Specialty Start Date End Date Brianne Sin MD PCP - General Family Medicine 12/24/15 02/01/[address] [place] [address] [place] [address] documented as of this encounter
--- OUTSIDE RECORDS SUMMARY | 2022-07-17 12:39 | XMS_ITS | Encounter Summary ---
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 Dell Mccauley MD [facility] Rad Nuclear Med Procedures PET CT Malik Skull Base to Mid-Thigh [address] [place] [phone] Fax: Referral ID Status Reason Start Date Expiration Date Visits V isits Requested Authorized [id number] Closed Specialty 03/22/2017 03/22/2018 1 1 Service Requested Reason for Visit Diagnostic Test (Routine) - Closed Specialty Diagnoses / Procedures Referred By Contact Refer red To Contact Radiology Diagnoses 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 Dell Mccauley MD [facility] Rad Nuclear Med Procedures PET CT Malik Skull Base to Mid-Thigh [address] [place] [phone] Fax: Referral ID Status Reason Start Date Expiration Date Visits V isits Requested Authorized [id number] Closed Specialty 03/22/2017 03/22/2018 1 1 Service Requested Encounter Details Date Type Department Care Team Description 03/26/2017 Hospital Encounter Nuclear Medicine at [facility], Dell Cano, Malignant neoplasm Jenny Landaverde MD of lower lobe of [address] [place] [phone] Social History Tobacco Use Types Packs/Day Years Used Date Former Smoker Cigarettes 1 30 Quit: 10/01/19 80 Alcohol Use Standard Drinks/Week Comments No 0 (1 standard drink = 0.6 oz pure alcoho l) Sex Assigned at Date Recorded Not on file documented as of this encounter Medications at Time of Discharge Medication Sig Dispensed Refills Start Date End Date calcium-vitamin D3 600 mg Take by mouth. 0 calcium- 400 unit Tablet hydrOXYzine (ATARAX) 10 Take 1-2 tablets by 60 tablet 2 03/201707/20/2017 mg Tablet mouth every night lactobacillus rhamnosus, Take 1 capsule by 0 07/20/2017 GG, (CULTURELLE) 10 mouth daily. billion cell Capsule probiotic triamcinolone Apply topically 3 0 04/0 01/2022 (ARISTOCORT) 0.5 % Cream times daily as needed. cetirizine (ZYRTEC) 10 mg Take 10 mg by mouth 0 07/20/2017 Tablet daily. METOPROLOL SUCCINATE ORAL Take 25 mg by mouth 0 09/04/2021 daily as needed. documented as of this encounter Plan of Treatment Upcoming Encounters Date Type Specialty Care Team Description 10/02/2022 Office Visit Dermatology Ashok Xiong MD [address] DERMATOLOGY [place], [place] [address] (Wo rk) documented as of this encounter Procedures Procedure Name Priority Date/Time Associated Diagnosis Comme nts NM MALIK PET CT Routine 03/26/2017 9:35 AM Malignant neopl asm Results for this SKULL BASE TO EDT of lower lobe of procedure are in MID-THIGH right [...] Thank you for referring this patient to [facility]. I have personally reviewed the image(s) and the residents interpretation and agree with the findings, Jimmy Gaona at 03/26/2017 3:56 PM Narrative 03/26/2017 3:56 PM EDT EXAMINATION: PET CT MALIK SKULL BASE TO MID-THIGH CLINICAL HISTORY: Lung Cancer on Immunot herapy for past 1 year TECHNIQUE: Following IV injection of 18- vredob-1-qlebjjvbmpgr (FDG) a standard uptake of approximately 60 [...] year TECHNIQUE: Following IV injection of 18- zjmfhi-5-qwqjzqtzlvnz (FDG) a standard uptake of approximately 60 [...] Thank you for referring this patient to [facility]. I have [...] Dose Rate Site fludeoxyglucose (F-18) FDG Given 03/26/2017 7:46 AM EDT 12.3 mCi injection 12.3 mCi 12.3 mCi, Intravenous, ONCE PRN, 1 dose, Starting on Wed03/26/17 at 0746, Until Wed03/26/17 at 0746, Per Protocol, Routine documented in this encounter Care Teams Material Disposition Inspector Relationship Specialty Start Date End Date Brianne Sin MD PCP - General Family Medicine 12/24/15 02/01/[address] [place] [address] [place] [phone] documented as of this encounter
--- OUTSIDE RECORDS SUMMARY | 2022-07-17 12:39 | XMS_ITS | Encounter Summary ---
:1940 Author Organization [facility] [place] [address] Care Team Providers Name Role Phone Brianne Sin MD Primary Care Provider Reason for Referral Diagnostic Test (Routine) - Closed Specialty Diagnoses / Procedures Referred By Contact Refer red To Contact Radiology Diagnoses 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 Dell Mccauley MD [facility] Rad Nuclear Med Procedures PET CT Malik Skull Base to Mid-Thigh [address] [place] [phone] Fax: Referral ID Status Reason Start Date Expiration Date Visits V isits Requested Authorized [id number] Closed Specialty 07/20/2017 07/20/2018 1 1 Service Requested Reason for Visit Diagnostic Test (Routine) - Closed Specialty Diagnoses / Procedures Referred By Contact Refer red To Contact Radiology Diagnoses 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 Dell Mccauley MD [facility] Rad Nuclear Med Procedures PET CT Malik Skull Base to Mid-Thigh [address] [place] [phone] Fax: Referral ID Status Reason Start Date Expiration Date Visits V isits Requested Authorized [id number] Closed Specialty 07/20/2017 07/20/2018 1 1 Service Requested Encounter Details Date Type Department Care Team Description 07/30/2017 Hospital Encounter Nuclear Medicine at [facility], Dell Cano, Malignant neoplasm Jenny Landaverde MD of lower lobe of [facility] [address] [place] [phone] Social History Tobacco Use Types Packs/Day Years [...] by mouth. 0 calcium- 400 unit Tablet triamcinolone Apply topically 3 0 /01/2022 (ARISTOCORT) 0.5 % Cream times daily as needed. METOPROLOL SUCCINATE ORAL Take 25 mg by mouth 0 09/04/2021 daily as needed. documented as of this encounter Plan of Treatment Upcoming Encounters Date Type Specialty Care Team Description 10/02/2022 Office Visit Dermatology Ashok Xiong MD [address] [place] [address] RD DERMATOLOGY [place], [place] [address] (Wo rk) documented as of this encounter Procedures Procedure Name Priority Date/Time Associated Diagnosis Comme nts NM MALIK PET CT Routine 07/30/2017 11:53 AM Malignant neop lasm Results for this [...] Thank you for referring this patient to [facility]. Narrative 07/30/2017 2:23 PM EDT EXAMINATION: PET CT MALIK SKULL BASE TO MID-THIGH CLINICAL HISTORY: Follow up lung cancer on immunotherapy. ??Clinically doing well TECHNIQUE: Following IV injection of 18- djnuwx-6-eyvtuttcolnr (FDG) a standard uptake of approximately 60 [...] Junior MD - 07/30/2017 EXAMINATION: PET CT [place] SKULL BASE TO MID-THIGH CLINICAL HISTORY: Follow up lung cancer on immunotherapy. Clinically doing well TECHNIQUE: Following IV injection of 18- kiawql-4-pdxrovubjtiv (FDG) a standard uptake of approximately 60 [...] Thank you for referring this patient to [facility]. Dell Mccauley MD IMG PET ORDERABLES documented in this encounter Visit Diagnoses Diagnosis Malignant neoplasm of lower lobe of righ t lung documented in this encounter Administered Medications Inactive Administered Medications - up to 3 most recent administrations Medication Order MAR Action Action Date Dose Rate Site fludeoxyglucose (F-18) FDG Given 07/30/2017 10:00 AM EDT 11.9 mC i injection 11.9 mCi 11.9 mCi, Intravenous, ONCE PRN, 1 dose, Starting on Wed07/30/17 at 1000, Until Wed07/30/17 at 1000, Per Protocol, Routine documented in this encounter Care Teams Claim Analyst Relationship Specialty Start Date End Date Brianne Sin MD PCP - General Family Medicine 12/24/15 02/01/[address] [place] [address] [place] [phone] documented as of this encounter
--- OUTSIDE RECORDS SUMMARY | 2022-07-17 12:39 | XMS_ITS | Encounter Summary ---
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 Dell Mccauley MD [facility] Hem Onc Infusion [address] [place] [address] [address] [place] [phone] Phone: Fax: Referral ID Status Reason Start Date Expiration Date Visits Requ ested Visits Authorized [id number] Closed 02/16/2017 02/16/2018 1 1 Encounter Details Date Type Department Care Team Description 04/13/2017 [facility] of right lung [address] [place] [phone] Social History Tobacco Use Types Packs/Day Years Used Date Former Smoker Cigarettes 30 Quit: 10/01/19 80 Alcohol Use Standard Drinks/Week Comments No 0 (1 standard drink = 0.6 oz pure alcoho l) Sex Assigned at Date Recorded Not on file documented as of this encounter Progress Notes Kim Arzola RN - 04/13/2017 10:30 AM EDT INFUSION THERAPY ADMINISTRATION NOTES DIAGNOSIS: NSCLC CYCLE #: Cycle 5, Day 1 -- Nivolumab REASON FOR VISIT:To receive chemotherapy SUBJECTIVE: Parveen offers no complaints. OBJECTIVE: Seen by provider. VSS. Weight stable. Quite happy because his most current PET was good. LAB DATA: WBC - 4.35, H/H - 12.6/39.0, Plt Ct - 169, ANC - 2.88, Lytes wnl, BUN/CR - 31/1.42 IV ACCESS: PIV Pre administration: Chemotherapy orders independently verified for drug name, route, and dosage per patient's height, weight and BSA by Kim Arzola RN and Laureen Contreras [facility]. REACTIONS (DESCRIPTION, TIME, INTERVENTION AND EFFECTIVENESS) none ASSESSMENT: Parveen was awake, alert and tolerated treatment well. PIV discontinued prior to dismissal PLAN: Return to clinic per routine. documented in this encounter Plan of Treatment Upcoming Encounters Date Type Specialty Care Team Description 10/02/2022 Office Visit Dermatology Ashok Xiong MD [address] [place] [address] DERMATOLOGY [place], [place] [address] (Wo rk) documented as of this encounter Visit Diagnoses Diagnosis Malignant neoplasm of lower lobe of righ t lung documented in this encounter Administered Medications Inactive Administered Medications - up to 3 most recent administrations Medication Order MAR Action Action Date Dose Rate Site nivolumab (OPDIVO) 240 mg in New Bag 04/13/2017 11:51 AM EDT 240 m g 124 mL/hr sodium chloride 0.9% 124 mL infusion 240 mg, Intravenous, ONCE, 1 dose, On Wed04/13/17 at 1245, Administer over 60 Minutes, Flush line with NS after each dose, This is a restricted medication. Is this being used for an FDA approved indication? Yes, This agent is restricted to outpatient use. Is this drug being given as an outpatient? Yes documented in this encounter Care Teams Family Nurse Relationship Specialty Start Date End Date Brianne Sin MD PCP - General Family Medicine 12/24/15 02/01/[address] [place] [address] [place] [phone] documented as of this encounter
--- OUTSIDE RECORDS SUMMARY | 2022-07-17 12:39 | XMS_ITS | Encounter Summary ---
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 lobe of right lung [address] [place] [phone] Social History Tobacco Use Types Packs/Day Years Used Date Former Smoker Cigarettes 1 30 Quit: 10/01/19 80 Alcohol Use Standard Drinks/Week Comments No 0 (1 standard drink = 0.6 oz pure alcoho l) Sex Assigned at Date Recorded Not on file documented as of this encounter Progress Notes Radha Martinez RN - 03/16/2017 10:30 AM EDT INFUSION THERAPY ADMINISTRATION NOTES DIAGNOSIS: NSCLC CYCLE #: Cycle 3, Day 1 -- Nivolumab REASON FOR VISIT: To receive chemotherapy SUBJECTIVE: Arnold offers no complaints. OBJECTIVE: VSS. Weight stable. Seen by provider. LAB DATA: WBC - 4.08, H/H - 12.8/38.7, Plt Ct - 164, ANC - 2.65, Lytes wnl, BUN/CR - 32/1.40, TSH - 4.29, T4 - 8.7 IV ACCESS: PIV Pre administration: Chemotherapy orders independently verified for drug name, route, and dosage per patient's height, weight and BSA by Damion Martinez RN and Laureen Contreras [facility] REACTIONS (DESCRIPTION, TIME, INTERVENTION AND EFFECTIVENESS) none ASSESSMENT: Parveen was awake, alert and tolerated treatment well. PIV discontinued prior to dismissal PLAN: Return to clinic per routine. documented in this encounter Plan of Treatment Upcoming Encounters Date Type Specialty Care Team Description 10/02/2022 Office Visit Dermatology Ashok Xiong MD [address] [place] [address] DERMATOLOGY [place], [place] [address] (Wo rk) documented as of this encounter Visit Diagnoses Diagnosis Malignant neoplasm of lower lobe of righ t lung documented in this encounter Administered Medications Inactive Administered Medications - up to 3 most recent administrations Medication Order MAR Action Action Date Dose Rate Site nivolumab (OPDIVO) 240 mg in New Bag 03/16/2017 10:36 AM EDT 240 m g 124 mL/hr sodium chloride 0.9% 124 mL infusion 240 mg, Intravenous, ONCE, 1 dose, On Wed03/16/17 at 1130, Administer over 60 Minutes, Flush line with NS after each dose, This is a restricted medication. Is this being used for an FDA approved indication? Yes, This agent is restricted to outpatient use. Is this drug being given as an outpatient? Yes documented in this encounter Care Teams Credit Risk Officer Relationship Specialty Start Date End Date Brianne Sin MD PCP - General Family Medicine 12/24/15 02/01/[address] [place] [address] [place] [phone] documented as of this encounter
--- OUTSIDE RECORDS SUMMARY | 2022-07-17 12:39 | XMS_ITS | Encounter Summary ---
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 Dell Mccauley MD [facility] Hem Onc Infusion [address] [place] [address] 185 [address] [place] [phone] Phone: Fax: Referral ID Status Reason Start Date Expiration Date Visits Requ ested Visits Authorized [id number] Closed 02/16/2017 02/16/2018 1 1 Encounter Details Date Type Department Care Team Description 2017 [facility] lobe of right lung [address] [place] [phone] Social History Tobacco Use Types [...] Sign Reading Time Taken Comments Blood Pressure 116/66 2017 8:21 AM EDT Pulse 70 2017 8:21 AM EDT Temperature 36.5 ??C (97.7 ??F) 2017 8:21 AM EDT Respiratory Rate 18 2017 8:21 AM EDT Oxygen Saturation 100% 2017 8:21 AM EDT Inhaled Oxygen Concentration - - Weight 66.4 kg (146 lb 6.2 oz) 2017 8:21 AM EDT Height 173 cm (5' 8.11) 2017 8:21 AM EDT Body Mass Index 22.19 2017 8:21 AM EDT documented in this encounter Progress Notes Sol Menchaca RN - 2017 8:30 AM EDT INFUSION THERAPY ADMINISTRATION NOTES DIAGNOSIS: NSCLC CYCLE #: Cycle 10, Day 1 REASON FOR VISIT: Nivolumab infusion SUBJECTIVE: Arngeetha offers no complaints. OBJECTIVE: VSS. Weight [place]. Seen by provider. LAB DATA: WNL for today's infusion IV ACCESS: PIV Pre administration: Chemotherapy orders independently verified for drug name, route, and dosage per patient's height, weight and BSA by Sol Menchaca RN and Francie Contreras, [facility]. REACTIONS (DESCRIPTION, TIME, INTERVENTION AND EFFECTIVENESS) none ASSESSMENT: Parveen awake, alert and tolerated treatment well. PIV discontinued prior to dismissal. PLAN: Return to clinic per routine. documented in this encounter Plan of Treatment Upcoming Encounters Date Type Specialty Care Team Description 10/02/2022 Office Visit Dermatology Ashok Xiong MD [address] [place] [address] DERMATOLOGY [place], [place] [address] (Wo rk) documented as of this encounter Visit Diagnoses Diagnosis Malignant neoplasm of lower lobe of righ t lung documented in this encounter Administered Medications Inactive Administered Medications - up to 3 most recent administrations Medication Order MAR Action Action Date Dose Rate Site nivolumab (OPDIVO) 240 mg in New Bag 2017 9:33 AM EDT 240 mg 124 mL/hr sodium chloride 0.9% 124 mL infusion 240 mg, Intravenous, ONCE, 1 dose, On Wed06/23/17 at 0945, Administer over 60 Minutes, Flush line with NS after each dose, This is a restricted medication. Is this being used for an FDA approved indication? Yes, This agent is restricted to outpatient use. Is this drug being given as an outpatient? Yes documented in this encounter Care Teams Poultry Cleaner Relationship Specialty Start Date End Date Brianne Sin MD PCP - General Family Medicine 12/24/15 02/01/[address] [place] [address] [place] [phone] documented as of this encounter
--- OUTSIDE RECORDS SUMMARY | 2022-07-17 12:39 | XMS_ITS | Encounter Summary ---
:1940 Author Organization [facility] [place] [address] Care Team Providers Name Role Phone Brianne Sin MD Primary Care Provider Reason for Visit Reason Comments Skin Check Encounter Details Date Type Department Care Team Description 05/28/2017 Office Visit Dermatology at [facility] Xiong, Seborrh eic keratosis [place] [address] [facility] [address] [facility] [place] DERMATOLOGY [place], [place] [phone] Social History Tobacco Use Types Packs/Day Years Used Date Former Smoker Cigarettes 1 30 Quit: 10/01/19 80 Alcohol Use Standard Drinks/Week Comments No 0 (1 standard drink = 0.6 oz pure alcoho l) Sex Assigned at Date Recorded Not on file documented as of this encounter Progress Notes Ashok Xiong MD - 05/28/2017 10:45 AM EDT PROBLEM: 1. Skin check. 2. History of actinic keratoses, treated with liquid nitrogen and also with 5-FU in the past at the [facility]. Parveen follows up and has had an irritated skin tag/seborrheic keratoses on the right upper nape of his neck laterally. However, it has spontaneously improved. He wants me, however, to look at the rest of the skin and potentially give him something to treat his actinic keratoses. The patient continues on Opdivo for his adenocarcinoma of the lung and continues to enjoy a complete response. PHYSICAL EXAMINATION: Reveals a pleasant, 76-year-old gentleman who has numerous seborrheic keratoses present on his torso and back. Examination of the balding parietal scalp, the face, the neck, the chest, the back, hands, arms, thighs, and calves, is benign. A/P: Seborrheic keratoses. a. Patient reassured. b. No treatment necessary. c. Recommend I see him again now p.r.n. for new lesions/concerns. CC: Brianne Sin MD documented in this encounter Plan of Treatment Upcoming Encounters Date Type Specialty Care Team Description 10/02/2022 Office Visit Dermatology Ashok Xiong MD [address] [place] [address] DERMATOLOGY [place], [place] [address] (Wo rk) documented as of this encounter Visit Diagnoses Diagnosis Seborrheic keratosis Other seborrheic keratosis documented in this encounter Care Teams Rivet Sorter Relationship Specialty Start Date End Date Brianne Sin MD PCP - General Family Medicine 12/24/15 02/01/[address] [place] [address] [place] [phone] documented as of this encounter
--- OUTSIDE RECORDS SUMMARY | 2022-07-17 12:39 | XMS_ITS | Encounter Summary ---
:1940 Author Organization [facility] [place] [address] Care Team Providers Name Role Phone Brianne Sin MD Primary Care Provider Reason for Visit Reason Comments Lung Cancer Encounter Details Date Type Department Care Team Description 09/08/2016 Office Visit [facility] Dell Mccauley, Malignant neoplasm of [address] upper lobe of right [address] [place] [address] [place], [place] [phone] (Wo rk) Social History Tobacco Use Types Packs/Day Years Used Date Former Smoker Cigarettes 30 Quit: 10/01/19 80 Alcohol Use Standard Drinks/Week Comments No 0 (1 standard drink = 0.6 oz pure alcoho l) Sex Assigned at Date Recorded Not on file documented as of this encounter Last Filed Vital Signs Vital Sign Reading Time Taken Comments Blood Pressure 110/80 09/08/2016 9:44 AM EST Pulse 76 09/08/2016 9:44 AM EST Temperature 36.6 ??C (97.9 ??F) 09/08/2016 9:44 AM EST Respiratory Rate 17 09/08/2016 9:44 AM EST Oxygen Saturation 98% 09/08/2016 9:44 AM EST Inhaled Oxygen Concentration - - Weight 65.5 kg (144 lb 6.4 oz) 09/08/2016 9:44 AM EST Height - - Body Mass Index 22.66 01/07/2016 8:56 AM EST documented in this encounter Progress Notes Dell Mccauley MD - 09/08/2016 9:30 AM EST 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 He has had essentially a complete response on treatment and is tolerating the treatment well with no autoimmune problems. He is not having any diarrhea symptoms, no rash, no other difficulties. He does note a slightly dry mouth but that is well managed with simply drinking a bit more water during the day. His breathing is fine. He was able to walk 3 miles yesterday on uneven terrain and notes that he could even jog if he wanted to. He did well with the exercise and he also has arrangements for continuing treatment when he goes to [place] in 5 days. He will be back in the spring, and we talked about the logistics of getting things rearranged here. Review of systems is otherwise completely negative with no diarrhea, no breathing problems, no appetite problems, no jaundice or other difficulties. Review of systems is [...] supraclavicular, and axillary nodes normal Neurologic: Normal Blood counts today show a white count of 6.4, hemoglobin 12.6, hematocrit 39.7, platelet count 176. CMP is completely normal except for a slight increase in BUN of 27, creatinine is 1.1. Liver tests are normal with an SGPT of 41 and an SGOT of 27. ALP is 84, bilirubin 0.4. His calcium is normal at 9.5. T4 is 8.1 and TSH has remained normal at 4.5. ASSESSMENT AND PLAN: Parveen is continuing to tolerate the nivolumab with no autoimmune effects. His previous chemotherapy-associated anemia has resolved on the treatment and his respiratory status has come back to baseline. He has not felt this well in years. Complete responders to have a much better prognosis overall and it is really not certain how long he will continue to respond. Right now, however, things are going exceptionally well and we have discussed continuing him on treatment. We will go ahead with today's infusion, and as noted his next appointment with a new oncologist in [place] already arranged, along with a PCP provider in [place]. Records have been sent. He knows we are available if any questions or problems develop in the interim. But otherwise we plan on seeing him back in the spring when he returns from [place]. documented in this encounter Plan of Treatment Upcoming Encounters Date Type Specialty Care Team Description 10/02/2022 Office Visit Dermatology Ashok Xiong MD [address] [facility] DERMATOLOGY [place], [place] [address] (Wo rk) documented as of this encounter Procedures Procedure Name Priority Date/Time Associated Diagnosis Comme nts LAB SCAN 02/02/2017 12:00 AM Results for this EDT procedure are i n the results section . LAB SCAN 01/21/2017 12:00 AM Results for this EDT procedure are i n the results section . LAB SCAN 01/21/2017 12:00 AM Results for this EDT procedure are i n the results section . LAB SCAN 12/08/2016 12:00 AM Results for this EST procedure are i n the results section . LAB SCAN 10/27/2016 12:00 AM Results for this EST procedure are i n the results section . LAB SCAN 09/29/2016 12:00 AM Results for this EST procedure are i n the results section . LAB SCAN 09/08/2016 12:00 AM Results for this EST procedure are i n the results section . documented in this encounter Results SCAN DOC: LAB (02/02/2017 12:00 AM EDT) Narrative 02/02/2017 12:00 AM EDT This result has an attachment that is no t available. Ordered by an unspecified provider. Scanning Provider MEDIA MGR SCAN EXT ORDR/RSLT SCAN DOC: LAB (01/21/2017 12:00 AM EDT) Narrative 01/21/2017 12:00 AM EDT This result has an attachment that is no t available. Ordered by an unspecified provider. Scanning Provider MEDIA MGR SCAN EXT ORDR/RSLT SCAN DOC: LAB (01/21/2017 12:00 AM EDT) Narrative 01/21/2017 12:00 AM EDT This result has an attachment that is no t available. Ordered by an unspecified provider. Scanning Provider MEDIA MGR SCAN EXT ORDR/RSLT SCAN DOC: LAB (12/08/2016 12:00 AM EST) Narrative 12/08/2016 12:00 AM EST This result has an attachment that is no t available. Ordered by an unspecified provider. Scanning Provider MEDIA MGR SCAN EXT ORDR/RSLT SCAN DOC: LAB (10/27/2016 12:00 AM EST) Narrative 10/27/2016 12:00 AM EST This result has an attachment that is no t available. Ordered by an unspecified provider. Scanning Provider MEDIA MGR SCAN EXT ORDR/RSLT SCAN DOC: LAB (09/29/2016 12:00 AM EST) Narrative 09/29/2016 12:00 AM EST This result has an attachment that is no t available. Ordered by an unspecified provider. Scanning Provider MEDIA MGR SCAN EXT ORDR/RSLT SCAN DOC: LAB (09/08/2016 12:00 AM EST) Narrative This result has an attachment that is no t available. Scanning Provider MEDIA MGR SCAN EXT ORDR/RSLT documented in this encounter Visit Diagnoses Diagnosis Malignant neoplasm of upper lobe of righ t lung Malignant neoplasm of upper lobe, bronch us or lung documented in this encounter Care Teams Health Safety And Environment Manager Relationship Specialty Start Date End Date Brianne Sin MD PCP - General Family Medicine 12/24/15 02/01/[address] [place] [address] [place] [address] documented as of this encounter
--- OUTSIDE RECORDS SUMMARY | 2022-07-17 12:39 | XMS_ITS | Encounter Summary ---
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 Dell Mccauley MD [facility] Hem Onc Infusion [address] [place] [address] 225 [address] [place] [address] Phone: Fax: Referral ID Status Reason Start Date Expiration Date Visits Requ ested Visits Authorized [id number] Closed 02/16/2017 02/16/2018 1 1 Encounter Details Date Type Department Care Team Description 03/30/2017 [facility] lobe of right lung [address] [place] [phone] Social History Tobacco Use Types Packs/Day Years Used Date Former Smoker Cigarettes 11 30 Quit: 10/01/19 80 Alcohol Use Standard Drinks/Week Comments No 0 (1 standard drink = 0.6 oz pure alcoho l) Sex Assigned at Date Recorded Not on file documented as of this encounter Progress Notes Radha Martinez RN - 03/30/2017 8:30 AM EDT INFUSION THERAPY ADMINISTRATION NOTES DIAGNOSIS: NSCLC CYCLE #: Cycle 4, Day 1 -- Nivolumab REASON FOR VISIT:To receive chemotherapy SUBJECTIVE: Arnold offers no complaints. OBJECTIVE: Seen by provider. VSS. Weight stable. Quite happy because his most current PET was good. LAB DATA: WBC - 4.33, H/H - 13.4/40.2, Plt Ct - 181, ANC - 3.09, Lytes wnl, BUN/CR - 31/1.55 IV ACCESS: PIV Pre administration: Chemotherapy orders independently verified for drug name, route, and dosage per patient's height, weight and BSA by Damion Martinez RN and Laureen Contreras [facility]. REACTIONS (DESCRIPTION, TIME, INTERVENTION AND EFFECTIVENESS) none ASSESSMENT: Parveen was awake, alert and tolerated treatment well. PIV discontinued prior to tdismissal PLAN: Return to clinic per routine. documented in this encounter Plan of Treatment Upcoming Encounters Date Type Specialty Care Team Description 10/02/2022 Office Visit Dermatology Ashok Xiong MD [address] [facility] DERMATOLOGY [place], [place] [address] (Wo rk) documented as of this encounter Procedures Procedure Name Priority Date/Time Associated Diagnosis Comme nts LAB SCAN 03/30/2017 12:00 AM Results for this EDT procedure are i n the results section . LAB SCAN 03/30/2017 12:00 AM Results for this EDT procedure are i n the results section . documented in this encounter Results SCAN DOC: LAB (03/30/2017 12:00 AM EDT) Narrative 03/30/2017 12:00 AM EDT This result has an attachment that is no t available. Ordered by an unspecified provider. Scanning Provider MEDIA MGR SCAN EXT ORDR/RSLT SCAN DOC: LAB (03/30/2017 12:00 AM EDT) Narrative 03/30/2017 12:00 AM EDT This result has an [...] nivolumab (OPDIVO) 240 mg in New Bag 03/30/2017 10:02 AM EDT 240 m g 124 mL/hr sodium chloride 0.9% 124 mL infusion 240 mg, Intravenous, ONCE, 1 dose, On Wed03/30/17 at 1030, Administer over 60 Minutes, Flush line with NS after each dose, This is a restricted medication. Is this being used for an FDA approved indication? Yes, This agent is restricted to outpatient use. Is this drug being given as an outpatient? Yes documented in this encounter Care Teams Letter Carrier Relationship Specialty Start Date End Date Brianne Sin MD PCP - General Family Medicine 12/24/15 02/01/[address] [place] [address] [place] [phone] documented as of this encounter
--- OUTSIDE RECORDS SUMMARY | 2022-07-17 12:39 | XMS_ITS | Encounter Summary ---
:1940 Author Organization [facility] [place] [address] Care Team Providers Name Role Phone Brianne Sin MD Primary Care Provider Reason for Visit Reason Comments Lung Cancer Encounter Details Date Type Department Care Team Description 03/10/2016 Office Visit [facility] H[facility] Dell Mccauley, Malignant neoplasm of [address] MD suh of right lung [address] [address] [place], [place] [phone] (Wo rk) Social History Tobacco Use Types Packs/Day Years Used Date Former Smoker Cigarettes 30 Quit: 10/01/19 80 Alcohol Use Standard Drinks/Week Comments No 0 (1 standard drink = 0.6 oz pure alcoho l) Sex Assigned at Date Recorded Not on file documented as of this encounter Progress Notes Dell Mccauley MD - 03/10/2016 9:54 AM EDT Diagnosis 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 He has been having a lot of nausea problems, which are pretty sold throughout the entire three weeks after chemo. His regular PCP has tried him on multiple medications without effect. His breathing is fine overall. He has occasional chest pain but most of that is positional and otherwise though feels a bit fatigued and tired. He starts feeling a little better a couple of days before his next chemo is due but overall he has been feeling reasonably fatigued and tired on treatment. Review of systems is otherwise negative. Past medical history and social history [...] lab today shows a white count of 4.4, hemoglobin 11.4, hematocrit of 35.5, and a platelet count of 418. Absolute neutrophil count is 2.5. CMP is completely normal except for a slight bump in his creatinine to 1.3. His albumin is normal at 4. Liver tests are normal with an alkaline phosphatase of 81 and normal transaminases. His calcium is 9.7. Assessment/Plan: Parveen clinically is doing well as far as his lung cancer goes with really no pulmonary symptoms. He, however, is having a lot of what appear to be treatment related effects with fatigue, tiredness, and a very significant amount of nausea despite multiple attempts at treatment. It is a bit unusual pattern for chemotherapy, which usually gives patients nausea and vomiting for a few days and then abates. It can happen, however, and I suspect, especially in view of the fact that when he has had breaks before, symptoms tended to improve, that this is all chemotherapy related. He is not having any severe headache or anything to suggest a DATA SYSTEMS ANALYST metastasis so after discussion today we decided to go ahead and hold his treatment for three weeks and see if things do not improve. If he has any worsening of symptoms, I would get a brain MRI on him. At this point though, I think we can hold off on that. If things are going well in three weeks, we will probably continue to hold the chemotherapy and restage him in early April. Hopefully, he will have a prolonged progression free survival with the therapy he has gotten so far and things will improve off of treatment. He will call if there are issues or problems in the interim. Additionally, his creatinine did bump a little bit this past cycle. He is not taking nonsteroidal anti-inflammatories and in that regard I suspect it is toxicity from the Alimta. Holding treatment today should help with that as well. documented in this encounter Plan of Treatment Upcoming Encounters Date Type Specialty Care Team Description 10/02/2022 Office Visit Dermatology Ashok Xiong MD [address] [facility] DER[facility] [place], [place] [address] (Wo rk) documented as of this encounter Procedures Procedure Name Priority Date/Time Associated Diagnosis Comme nts LAB SCAN 03/31/2016 12:00 AM EDT documented in this encounter Results SCAN DOC: LAB (03/31/2016 12:00 AM EDT) Narrative This result has an attachment that is no t available. Scanning Provider MEDIA MGR SCAN EXT ORDR/RSLT documented in this encounter Visit Diagnoses Diagnosis Malignant neoplasm of hilus of right pebbles g documented in this encounter Care Teams Freight Booker Relationship Specialty Start Date End Date Brianne Sin MD PCP - General Family Medicine 12/24/15 02/01/[address] [place] [address] [place] [phone] documented as of this encounter
--- OUTSIDE RECORDS SUMMARY | 2022-07-17 12:39 | XMS_ITS | Encounter Summary ---
:1940 Author Organization [facility] [place] [address] Care Team Providers Name Role Phone Brianne Sin MD Primary Care Provider Reason for Visit Reason Comments Lung Cancer Encounter Details Date Type Department Care Team Description 03/02/2017 Office Visit Hematology/Oncology Dell Mccauley, Mal ignant neoplasm of lower lobe of right lung; at [facility] Hypothyroidism due to drugs [address] [place] [address] [address], [place] [address] [phone] Social History Tobacco Use Types Packs/Day Years Used Date Former Smoker Cigarettes 1 30 Quit: 10/01/19 80 Alcohol Use Standard Drinks/Week Comments No 0 (1 standard drink = 0.6 oz pure alcoho l) Sex Assigned at Date Recorded Not on file documented as of this encounter Last Filed Vital Signs Vital Sign Reading Time Taken Comments Blood Pressure 143/70 03/02/2017 11:00 AM EDT Pulse 68 03/02/2017 11:00 AM EDT Temperature 36.7 ??C (98.1 ??F) 03/02/2017 11:00 AM EDT Respiratory Rate 16 03/02/2017 11:00 AM EDT Oxygen Saturation 100% 03/02/2017 11:00 AM EDT Inhaled Oxygen Concentration - - Weight 65.7 kg (144 lb 12.8 oz) 03/02/2017 11:00 AM EDT Height 173 cm (5' 8.11) 03/02/2017 11:00 AM copied EDT Body Mass Index 21.95 03/02/2017 11:00 AM EDT documented in this encounter Progress Notes Dell Mccauley MD - 03/02/2017 11:00 AM EDT Diagnosis 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 He had essentially a complete response last fall and has wintered in [place] and is now back and this is his second infusion here since his return from [place]. Two weeks ago his infusion went well with no difficulties and over the past couple of weeks he has felt fine. His breathing is fine, he is active. His only problem is some intermittent rash, perhaps a little bit of psoriasis that is improving and a little bit of itching which is tolerable. He is going to see Dermatology and I told him there is really no restrictions on what can be used as far as his skin problems. He is not having any GI symptoms as all, no nausea, no abdominal pain, no diarrhea and as noted has no respiratory symptoms at this point. Review of systems is otherwise negative with minimal cough, no respiratory problems and a negative review of systems. Current Outpatient Prescriptions on File Prior to Visit Medication Sig Dispense Refill ??? cetirizine (ZYRTEC) 10 mg Tablet Take [...] Neurological: Negative. Hematological: Negative for adenopathy. BP 143/70 Pulse 68 Temp 36.7 ??C (98.1 ??F) Resp 16 Ht 173 cm (5' 8.11) Comment: copied Wt 65.7 kg (144 lb 12.8 oz) SpO2 100% BMI 21.95 kg/m2 Head: Normocephalic, without obvious abnormality, atraumatic [...] nodes normal Neurologic: Normal Review of his laboratory shows normal electrolytes, creatinine is at his baseline of 1.4, CMP is otherwise remarkable for normal liver tests, ALP is 91, transaminases are completely normal and bilirubin is 0.46. His TSH is 4.48 which is his baseline as well with previous TSH of 4.11 last August. T4 is normal at 9.1. White count is 4.98, hemoglobin 12.8, hematocrit 39.8 and platelet count is 183. ASSESSMENT/PLAN: Parveen is doing well and is fine today for another nivolumab infusion. We talked about doing this weeks' treatment and then treating him again in 2 weeks and then checking a PET scan. Plans will be to leave him on the therapy as long as he has no undue effects and is having a good response. Clinically he certainly is doing well. We will see him back in 2 weeks time including thyroid studies. He will call if there are issues or problems in the interim . documented in this encounter Plan of Treatment Upcoming Encounters Date Type Specialty Care Team Description 10/02/2022 Office Visit Dermatology Ashok Xiong MD [address] [facility] DER[facility] [place], [place] [address] (Wo rk) documented as of this encounter Procedures Procedure Name Priority Date/Time Associated Diagnosis Comme nts LAB SCAN 03/02/2017 12:00 AM Results for this EDT procedure are i n the results section . documented in this encounter Results SCAN DOC: LAB (03/02/2017 12:00 AM EDT) Narrative 03/02/2017 12:00 AM EDT This result has an attachment that is no t available. Ordered by an unspecified provider. 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
--- OUTSIDE RECORDS SUMMARY | 2022-07-17 12:39 | XMS_ITS | Encounter Summary ---
:1940 Author Organization [facility] [place] [address] Care Team Providers Name Role Phone Brianne Sin MD Primary Care Provider Reason for Visit Reason Comments Lung Cancer Encounter Details Date Type Department Care Team Description 05/19/2016 Office Visit [facility] Hosp Dell Mccauley, Malignant neoplasm of [address] middle lobe of right [address] [place] [address] [place], [place] [phone] (Wo rk) Social History Tobacco Use Types Packs/Day Years Used Date Former Smoker Cigarettes 30 Quit: 10/01/19 80 Alcohol Use Standard Drinks/Week Comments No 0 (1 standard drink = 0.6 oz pure alcoho l) Sex Assigned at Date Recorded Not on file documented as of this encounter Last Filed Vital Signs Vital Sign Reading Time Taken Comments Blood Pressure 142/77 05/19/2016 1:37 PM EDT Pulse 79 05/19/2016 1:37 PM EDT Temperature 36 ??C (96.8 ??F) 05/19/2016 1:37 PM EDT Respiratory Rate 16 05/19/2016 1:37 PM EDT Oxygen Saturation 100% 05/19/2016 1:37 PM EDT Inhaled Oxygen Concentration - - Weight 67.7 kg (149 lb 4.7 oz) 05/19/2016 1:37 PM EDT Height - - Body Mass Index 23.43 01/07/2016 8:56 AM EST documented in this encounter Progress Notes Dell Mccauley MD - 05/19/2016 12:30 PM EDT Diagnosis 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 He tolerated the treatment 2 weeks ago quite well with really no difficulties or problems. He has felt good over the past few weeks except for a bit of allergy symptoms at times, although that seems to have gotten better with the change in the weather the last couple days. Review of systems is otherwise negative with [...] his lab today shows white count of 4.4, hemoglobin 11.8, hematocrit 38.5, platelet count 168. CMP shows a normal creatinine of 1.1, normal ALT of 77, calcium of 9.4. Interestingly, 2 weeks ago when the started his nivolumab he was actually a bit high on his T4 at 11.1 with a TSH of 4.76. T4 today has dropped to 9.4, so perhaps the 11 was spurious. ASSESSMENT/PLAN: Parveen is doing well overall and tolerating the nivolumab. He is symptom free at this time and has no symptoms of autoimmune problems. His thyroid status started out a bit on the high side, but that may have been lab error, and we will continue to watch it with normalization of his T4 today. He will call if there are issues or problems in the interim. We again talked about the possibility of a flare reaction making radiology difficult to interpret, but if patient's are symptomatically doing well, we tend to continue on the treatment. documented in this encounter Plan of Treatment Upcoming Encounters Date Type Specialty Care Team Description 10/02/2022 Office Visit Dermatology Ashok Xiong MD [address] [facility] DER[facility] [place], [place] [address] (Wo rk) documented as of this encounter Procedures Procedure Name Priority Date/Time Associated Diagnosis Comme nts LAB SCAN 06/02/2016 12:00 AM EDT LAB SCAN 06/02/2016 12:00 AM EDT documented in this encounter Results SCAN DOC: LAB (06/02/2016 12:00 AM EDT) Narrative This result has an attachment that is no t available. Scanning Provider MEDIA MGR SCAN EXT ORDR/RSLT SCAN DOC: LAB (06/02/2016 12:00 AM EDT) Narrative This result has an attachment that is no t available. Scanning Provider MEDIA MGR SCAN EXT ORDR/RSLT documented in this encounter Visit Diagnoses Diagnosis Malignant neoplasm of middle lobe of rig ht lung documented in this encounter Care Teams Client Development Manager Relationship Specialty Start Date End Date Brianne Sin MD PCP - General Family Medicine 12/24/15 02/01/[address] [place] [address] [place] [phone] documented as of this encounter
--- OUTSIDE RECORDS SUMMARY | 2022-07-17 12:39 | XMS_ITS | Encounter Summary ---
:1940 Author Organization [place] [address] Care Team Providers Name Role Phone Brianne Sin MD Primary Care Provider Reason for Visit Reason Comments Lung Cancer Encounter Details Date Type Department Care Team Description 04/13/2017 Office Visit Hematology/Oncology Dell Mccauley, Mal ignant neoplasm of lower lobe of right lung; at [facility] Hypothyroidism due to drugs [address] [place] [address] [address] K[address], [place] [phone] Social History Tobacco Use Types Packs/Day Years Used Date Former Smoker Cigarettes 1 30 Quit: 10/01/19 80 Alcohol Use Standard Drinks/Week Comments No 0 (1 standard drink = 0.6 oz pure alcoho l) Sex Assigned at Date Recorded Not on file documented as of this encounter Last Filed Vital Signs Vital Sign Reading Time Taken Comments Blood Pressure 132/84 04/13/2017 10:14 AM EDT Pulse 65 04/13/2017 10:14 AM EDT Temperature 36.4 ??C (97.5 ??F) 04/13/2017 10:14 AM EDT Respiratory Rate 16 04/13/2017 10:14 AM EDT Oxygen Saturation 99% 04/13/2017 10:14 AM EDT Inhaled Oxygen Concentration - - Weight 65.8 kg (145 lb) 04/13/2017 10:14 AM EDT Height 173 cm (5' 8.11) 04/13/2017 10:14 AM EDT copied Body Mass Index 21.98 04/13/2017 10:14 AM EDT documented in this encounter Progress Notes Dell Mccauley MD - 04/13/2017 10:00 AM EDT Images from the original note were not included. 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 He is tolerating the infusions well, noting only a little bit of itching as his only side effect. Perhaps there is a bit of fatigue. He is breathing fine. He is physically active, and he is not having any other difficulties. He has an occasional loose stool but no other GI disturbance at all and no diarrhea. Review of systems is otherwise negative. Review [...] Neurological: Negative. Hematological: Negative for adenopathy. BP 132/84 (Patient Position: Sitting) Pulse 65 Temp 36.4 ??C (97.5 ??F) (Oral) Resp 16 Ht 173 cm (5' 8.11) Comment: copied Wt 65.8 kg (145 lb) SpO2 99% BMI 21.98 kg/m2 Head: Normocephalic, without obvious abnormality, atraumatic [...] year ?? TECHNIQUE: Following IV injection of 86-mjmzpa-7-deoxyglucose (FDG) a standard uptake of approximately 60 [...] ith areas of cutaneous inflammation. Laboratory today showed normal electrolytes, a potassium of 4.5. Creatinine is improved to 1.42. Alkaline phosphatase is 88, AST 18, ALT 19. TSH improved to 3.87 with a T4 of 7.5. CBC shows a white count of 4.35, hemoglobin 12.6, hematocrit 39%, and platelets 169. ASSESSMENT/PLAN: Parveen is tolerating his checkpoint inhibitor without any difficulty. He has no evidence of any autoimmune pneumonitis, hepatitis, or colitis. Thyroid axis is stable, and he has no evidence for evolving hypothyroidism or hyperthyroidism. He does have some very subtle skin toxicity with some itching noted. He has had a complete response to treatment, and so far that has proved durable. We will go ahead with treatment today and see him back in 2 weeks with lab for another cycle. documented in this encounter Plan of Treatment Upcoming Encounters Date Type Specialty Care Team Description 10/02/2022 Office Visit Dermatology Ashok Xiong MD [address] [facility] DERMATOLOGY [place], [place] [address] (Wo rk) documented as of this encounter Procedures Procedure Name Priority Date/Time Associated Diagnosis Comme nts LAB SCAN 04/13/2017 12:00 AM Results for this EDT procedure are i n the results section . documented in this encounter Results SCAN DOC: LAB (04/13/2017 12:00 AM EDT) Narrative 04/13/2017 12:00 AM EDT This result has an attachment that is no t available. Ordered by an unspecified provider. 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
--- OUTSIDE RECORDS SUMMARY | 2022-07-17 12:39 | XMS_ITS | Encounter Summary ---
:1940 Author Organization [facility] [place] [address] Care Team Providers Name Role Phone Brianne Sin MD Primary Care Provider Reason for Visit Reason Comments Lung Cancer Encounter Details Date Type Department Care Team Description 08/02/2017 Office Visit Hematology/Oncology Dell Mccauley, Mal ignant neoplasm of lower lobe of right lung; at [facility] Hypothyroidism due to drugs [address] [address], [place] [address] [phone] Social History Tobacco Use Types Packs/Day Years Used Date Former Smoker Cigarettes 1 30 Quit: 10/01/19 80 Smokeless Tobacco: Never Used Alcohol Use Standard Drinks/Week Comments No 0 (1 standard drink = 0.6 oz pure alcoho l) Sex Assigned at Date Recorded Not on file documented as of this encounter Last Filed Vital Signs Vital Sign Reading Time Taken Comments Blood Pressure 142/72 08/02/2017 8:57 AM EDT Pulse 66 08/02/2017 8:57 AM EDT Temperature 36.1 ??C (97 ??F) 08/02/2017 8:57 AM EDT Respiratory Rate 18 08/02/2017 8:57 AM EDT Oxygen Saturation 98% 08/02/2017 8:57 AM EDT Inhaled Oxygen Concentration - - Weight 68 kg (150 lb) 08/02/2017 8:57 AM EDT Height 173 cm (5' 8.11) 08/02/2017 8:57 AM EDT copied Body Mass Index 22.73 08/02/2017 8:57 AM EDT documented in this encounter Progress Notes Dell Mccauley MD - 08/02/2017 9:00 AM EDT Images from the original note were not included. 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 We did rescan him as it had been 6 months since his previous scan. He remains symptom free except for a bit of a dry mouth and some dry skin with a bit of itching. Other than that, though, he has no GI symptoms or other problems. His breathing is fine. His performance status is actually improved and his exercise tolerance is better, as well. He is back in good physical shape. He does tell me he is going to be going back to [place] in mid September and so he would get 3 more treatments here before leaving. The date that he leaves and goes back to [place] is not a firm date. I am pleased to be able to tell him he continues in complete remission with absolutely no evidence of tumor on PET scanning. Review of systems is otherwise completely negative [...] Cycle 12 nivolumab (OPDIVO) IV 240 mg EXAMINATION: PET CT [place]IN SKULL BASE TO MID-THIGH 07/29/17?? CLINICAL HISTORY: Follow up lung cancer on immunotherapy. Clinically doing well ?? TECHNIQUE: Following IV injection of 15-hyhmyo-8-deoxyglucose (FDG) a standard uptake of approximately 60 [...] lung cancer. ?? Laboratory today shows a white count of 5.08, hemoglobin 13.4, hematocrit 40.9, platelet count is 188. CMP shows normal electrolytes, creatinine of 1.3 which is his baseline, alkaline phosphatase of 103, TSH a little higher this time at 3.83, but so is T4 at 8.4, so I do not think this represents any significant change. ASSESSMENT/PLAN: Parveen is doing well and shows a complete response to nivolumab treatment that is ongoing. As far as I can tell, he has absolutely no autoimmune effects from treatment except for a bit of dry mouth and some mild itching. He has no major problems. His thyroid axis is fine. We will go ahead with treatment today as planned and see him back in 2 weeks with lab including thyroid studies. I did go over his scans with him in detail and gave him a copy of this report. Obviously, he is quite pleased. 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
--- OUTSIDE RECORDS SUMMARY | 2022-07-17 12:39 | XMS_ITS | Encounter Summary ---
:1940 Author Organization [facility] [address] Care Team Providers Name Role Phone Brianne Sin MD Primary Care Provider Reason for Visit Reason Comments Lung Cancer Encounter Details Date Type Department Care Team Description 05/05/2016 Office Visit [facility] Hosp Dell Mccauley, Malignant neoplasm of [address] middle lobe of right [address] [place] [address] [place], [place] [phone] (Wo rk) Social History Tobacco Use Types Packs/Day Years Used Date Former Smoker Cigarettes 1 30 Quit: 10/01/19 80 Alcohol Use Standard Drinks/Week Comments No 0 (1 standard drink = 0.6 oz pure alcoho l) Sex Assigned at Date Recorded Not on file documented as of this encounter Last Filed Vital Signs Vital Sign Reading Time Taken Comments Blood Pressure 130/70 05/05/2016 9:13 AM EDT Pulse 68 05/05/2016 9:13 AM EDT Temperature 36.2 ??C (97.2 ??F) 05/05/2016 9:13 AM EDT Respiratory Rate 16 05/05/2016 9:13 AM EDT Oxygen Saturation 100% 05/05/2016 9:13 AM EDT Inhaled Oxygen Concentration - - Weight 65.9 kg (145 lb 4.5 oz) 05/05/2016 9:13 AM EDT Height - - Body Mass Index 22.8 01/07/2016 8:56 AM EST documented in this encounter Progress Notes Dell Mccauley MD - 05/05/2016 9:14 AM EDT 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 He has been doing well this past week. He continues to worry about not being able to put on weight, although he is not losing any. He notes he eats quite a bit, but his says his portion size is smaller, so he really is not eating that much. His weight has been relatively stable, though, most of his adult life, and after his initial weight loss at presentation with his lung cancer, he really has not lost weight since. He feels well otherwise. No respiratory symptoms. No cough. No pain. No other difficulties. His bowels are fine and review of systems is negative. Current Outpatient [...] tumor in those sites. Review of his laboratory today shows a white count of 4.1. 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 CMP is normal with normal liver tests. ALP is 84. SGPT 19, SGOT 29, creatinine 1.10. Sodium is 139. Electrolytes are otherwise normal with a calcium of 9.3. ASSESSMENT/PLAN: Parveen is ready to start his first infusion of nivolumab. We will go ahead with that and then plan on seeing him back in 2 weeks with a CBC, CMP, and thyroid screen. Risks and side effects of his new therapy were again gone over and he has a good understanding of things. He does wish to proceed with treatment. We will go ahead with that and he will let us know if there are problems in the interim. documented in this encounter Plan of Treatment Upcoming Encounters Date Type Specialty Care Team Description 10/02/2022 Office Visit Dermatology Ashok Xiong MD [address] [facility] DERMATOLOGY [place], [place] [address] (Wo rk) documented as of this encounter Procedures Procedure Name Priority Date/Time Associated Diagnosis Comme nts LAB SCAN 05/05/2016 12:00 AM EDT LAB SCAN 05/05/2016 12:00 AM EDT documented in this encounter Results SCAN DOC: LAB (05/05/2016 12:00 AM EDT) Narrative This result has an attachment that is no t available. Scanning Provider MEDIA MGR SCAN EXT ORDR/RSLT SCAN DOC: LAB (05/05/2016 12:00 AM EDT) Narrative This result has an attachment that is no t available. Scanning Provider MEDIA MGR SCAN EXT ORDR/RSLT documented in this encounter Visit Diagnoses Diagnosis Malignant neoplasm of middle lobe of rig ht lung documented in this encounter Care Teams Communication Arts Lecturer Relationship Specialty Start Date End Date Brianne Sin MD PCP - General Family Medicine 12/24/15 02/01/[address] [place] [address] [place] [address] documented as of this encounter
--- OUTSIDE RECORDS SUMMARY | 2022-07-17 12:39 | XMS_ITS | Encounter Summary ---
:1940 Author Organization [facility] [place] [address] Care Team Providers Name Role Phone Brianne Sin MD Primary Care Provider Reason for Visit Reason Comments Lung Cancer Encounter Details Date Type Department Care Team Description 12/31/2015 Office Visit [facility] Hosp Dell Mccauley, Malignant neoplasm of [address] MD suh of right lung [address] [address] [place], [place] [phone] (Wo rk) Social History Tobacco Use Types Packs/Day Years Used Date Former Smoker Cigarettes 30 Quit: 10/01/19 80 Alcohol Use Standard Drinks/Week Comments No 0 (1 standard drink = 0.6 oz pure alcoho l) Sex Assigned at Date Recorded Not on file documented as of this encounter Last Filed Vital Signs Vital Sign Reading Time Taken Comments Blood Pressure 130/70 12/31/2015 9:36 AM EST Pulse 76 12/31/2015 9:36 AM EST Temperature 36.6 ??C (97.9 ??F) 12/31/2015 9:36 AM EST Respiratory Rate 18 12/31/2015 9:36 AM EST Oxygen Saturation 98% 12/31/2015 9:36 AM EST Inhaled Oxygen Concentration - - Weight 69 kg (152 lb 1.9 oz) 12/31/2015 9:36 AM EST Height - - Body Mass Index 23.88 12/10/2015 8:37 AM EST documented in this encounter Progress Notes Dell Mccauley MD - 12/31/2015 9:38 AM EST 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 Currently, he is on carboplatin and Alimta and has had four cycles. He was scheduled to get a PET scan this weekend but the scanner apparently was having problems and it was not done. He has felt reasonably well this past cycle and is doing well. He was able to walk up the stairs today but did get a bit winded towards the top. He recovered quickly, however. We did discuss his anemia today and he expressed a desire not to have a transfusion. He has not had any fever or chills. He has had a bit of runny nose. He does note he has been able to put some weight on again and his appetite is actually a little bit better. He does not have any respiratory symptoms any longer with no cough whatsoever. Review of systems is otherwise negative. He does continue on his Lovenox twice [...] Neurological: Negative. Hematological: Negative for adenopathy. BP 130/70 mmHg Pulse 76 Temp(Src) 36.6 ??C (97.9 ??F) Resp 18 Wt 69 kg (152 lb 1.9 oz) SpO2 98% Head: Normocephalic, without obvious [...] Neurologic: Normal Review of his lab today does show a white count of 1.8 with an absolute neutrophil count of 690. Hemoglobin has dropped to 7.4 with hematocrit 22.9 and platelets are 131. CMP shows normal electrolytes, a potassium of 3.8, a creatinine of 1.0, an ALP of 65, and normal liver tests otherwise. Albumin is 3.6. Assessment/Plan: Parveen is actually doing better overall since starting chemotherapy. We discussed a transfusion because of his chemotherapy associated anemia and also discussed erythropoietin, which would make sense for him since he is trying to avoid transfusions. After discussions though, we decided to simply to watch him and see if his counts do not come up a bit by next week. As far as his neutropenia goes, we need to hold his chemotherapy today. That is just as well as he was not able to get his PET scan last week but will get it this weekend. We should have the results to decide on what treatment to do next week. The thinking is if he has had a significant response, we would switch over to maintenance Alimta. If that is the case, no dose adjustments would need to be made on the Alimta. If, on the other hand, he still has active tumor but has had a good response and we are continuing the current regimen, I would dose adjust downwards the carboplatin but leave the Alimta at the same dosing. That should allow us to go ahead and get in his chemotherapy on time without a cytokine. We spent time discussing this. We also spent some time talking about diet today. He is able to gain weight and I really think he should not restrict his diet. He continues on Lovenox for his DVT without change. He is not having any leg symptoms and, as noted, his breathing is essentially normal despite the anemia. documented in this encounter Plan of Treatment Upcoming Encounters Date Type Specialty Care Team Description 10/02/2022 Office Visit Dermatology Ashok Xiong MD [address] [facility] DERMATOLOGY [place], [place] [address] (Wo rk) documented as of this encounter Procedures Procedure Name Priority Date/Time Associated Diagnosis Comme nts PET SCAN (SCAN) 01/04/2016 12:00 AM EST documented in this encounter Results SCAN DOC: PET SCAN (01/04/2016 12:00 AM EST) Narrative This result has an attachment that is no t available. 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
--- OUTSIDE RECORDS SUMMARY | 2022-07-17 12:39 | XMS_ITS | Encounter Summary ---
:1940 Author Organization [facility] [place] [address] Care Team Providers Name Role Phone Brianne Sin MD Primary Care Provider Reason for Visit Reason Comments Lung Cancer Encounter Details Date Type Department Care Team Description 01/07/[address] [facility] Hosp Dell Mccauley, Malignant neoplasm of [address] MD suh of right lung [address] [address] [place], [place] [phone] (Wo rk) Social History Tobacco Use Types Packs/Day Years Used Date Former Smoker Cigarettes 1 30 Quit: 10/01/19 80 Alcohol Use Standard Drinks/Week Comments No 0 (1 standard drink = 0.6 oz pure alcoho l) Sex Assigned at Date Recorded Not on file documented as of this encounter Last Filed Vital Signs Vital Sign Reading Time Taken Comments Blood Pressure 120/70 01/07/2016 8:56 AM EST Pulse 74 01/07/2016 8:56 AM EST Temperature 36.2 ??C (97.2 ??F) 01/07/2016 8:56 AM EST Respiratory Rate 16 01/07/2016 8:56 AM EST Oxygen Saturation 100% 01/07/2016 8:56 AM EST Inhaled Oxygen Concentration - - Weight 70 kg (154 lb 5.2 oz) 01/07/2016 8:56 AM EST Height 170 cm (5' 6.93) 01/07/2016 8:56 AM EST Body Mass Index 24.22 01/07/2016 8:56 AM EST documented in this encounter Progress Notes Dell Mccauley MD - 01/07/2016 8:58 AM EST 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 He had been on carboplatin and Alimta for three months. Last week, his counts were down and his PET scan had not yet been done so we delayed treatment. With the extra week off, he is feeling great and has not felt this good since before we started treatment. He is breathing fine. He was able to come up from the cafeteria three flights of stairs to get to clinic today without any dyspnea and his appetite is back and his weight is going back up. He is not having any pain and review of systems is negative. Past medical history and social history are reviewed and unchanged from when I saw him last week. He does continue on his Lovenox twice [...] Neurological: Negative. Hematological: Negative for adenopathy. BP 120/70 mmHg Pulse 74 Temp(Src) 36.2 ??C (97.2 ??F) Resp 16 Wt 70 kg (154 lb 5.2 oz) SpO2 100% Head: Normocephalic, without obvious abnormality, atraumatic Eyes: [...] with no other activity within the chest. Lab today shows his white count has come up to 2.8, hemoglobin 8.8, hematocrit 28.3, and platelet count is 445. Absolute neutrophil count is 1.63. Assessment/Plan: Parveen has had a major response to the combination of carboplatin and Alimta and has minimal activity now on PET scanning. He has been having some problems with keeping his counts up and his symptoms related to the doublet chemotherapy of carboplatin and Alimta and at this point in time with things looking so good on his PET scan, it is reasonable to go ahead and switch him to maintenance Alimta. Hopefully, this will continue to keep the tumor under control and be much better tolerated. He did have a significant rash with the Alimta so we will continue him on dexamethasone 4 mg daily for three days after each treatment. We will see him back in three weeks for a second cycle of Alimta with lab prior to that visit. He will call if there are issues or problems in the interim. documented in this encounter Plan of Treatment Upcoming Encounters Date Type Specialty Care Team Description 10/02/2022 Office Visit Dermatology Ashok Xiong MD [address] [facility] [address] DERMATOLOGY [place], [place] [address] (Wo rk) documented as of this encounter Procedures Procedure Name Priority Date/Time Associated Diagnosis Comme nts CHEMOTHERAPY SCAN 01/07/2016 12:00 AM EST documented in this encounter Results SCAN DOC: CHEMOTHERAPY (01/07/2016 12:00 AM EST) Narrative This result has an attachment that is no t available. 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
--- OUTSIDE RECORDS SUMMARY | 2022-07-17 12:39 | XMS_ITS | Encounter Summary ---
:1940 Author Organization [place] [address] Care Team Providers Name Role Phone Brianne Sin MD Primary Care Provider Reason for Visit Reason Comments Lung Cancer Encounter Details Date Type Department Care Team Description 03/30/2017 Office Visit Hematology/Oncology Dell Mccauley, Mal ignant neoplasm of lower lobe of right lung; at [facility] Hypothyroidism due to drugs [address] [place], [place] [phone] Social History Tobacco Use Types Packs/Day Years Used Date Former Smoker Cigarettes 11 30 Quit: 10/01/19 80 Alcohol Use Standard Drinks/Week Comments No 0 (1 standard drink = 0.6 oz pure alcoho l) Sex Assigned at Date Recorded Not on file documented as of this encounter Last Filed Vital Signs Vital Sign Reading Time Taken Comments Blood Pressure 141/73 03/30/2017 8:33 AM EDT Pulse 60 03/30/2017 8:33 AM EDT Temperature 36.3 ??C (97.3 ??F) 03/30/2017 8:33 AM EDT Respiratory Rate 16 03/30/2017 8:33 AM EDT Oxygen Saturation 100% 03/30/2017 8:33 AM EDT Inhaled Oxygen Concentration - - Weight 67.6 kg (149 lb) 03/30/2017 8:33 AM EDT Height 173 cm (5' 8.11) 03/30/2017 8:33 AM EDT copied Body Mass Index 22.58 03/30/2017 8:33 AM EDT documented in this encounter Progress Notes Dell Mccauley MD - 03/30/2017 8:00 AM EDT Images from the original note were not included. 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 We did decide to finally restation with another PET scan and that was completed, and I am pleased to tell him that he is still in complete remission. He has some unusual findings including several areas that have lit up on the PET scan in the subcutaneous tissues reflecting his Lovenox injections. Other than that, he has no evidence of tumor whatsoever. He is extremely pleased with that. He remains largely symptom free although he does have dry mouth and needs to keep a bottle of water with him. He also has a little bit of itching overall, but that is quite tolerable. His performance status is back to normal otherwise. Review of systems is otherwise negative with [...] Neurological: Negative. Hematological: Negative for adenopathy. BP 141/73 (Patient Position: Sitting) Pulse 60 Temp 36.3 ??C (97.3 ??F) (Oral) Resp 16 Ht 173 cm (5' 8.11) Comment: copied Wt 67.6 kg (149 lb) SpO2 100% BMI 22.58 kg/m2 Head: Normocephalic, without obvious abnormality, atraumatic [...] year ?? TECHNIQUE: Following IV injection of 82-gsfazo-8-deoxyglucose (FDG) a standard uptake of approximately 60 [...] consistent w ith areas of cutaneous inflammation. Labs today show a white count of 4.33, hemoglobin 13.4, hematocrit 40.2, platelet count of 181, neutrophil count of 3.09. CMP shows normal electrolytes, creatine of 1.55, his baseline; bilirubin of 0.38, AST of 21, ALT of 22, ALP of 88. His last TSH was 4.29 with a T4 of 8.7. ASSESSMENT/PLAN: Parveen is doing exceptionally well. I did review the PET scan with him and he is quite pleased overall. We talked about long-term response rates and certainly he is headed toward that. He has tolerated the treatment well with minimal autoimmune problems including a bit of dry mouth (sicca) and a little bit of itching. Neither require intervention. We will go ahead with treatment today and see him back in 2 weeks with a CBC, CMP, T4 and TSH. He has no evidence for any autoimmune endocrine problems and no evidence for colitis, hepatitis, or pneumonitis. 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
--- OUTSIDE RECORDS SUMMARY | 2022-07-17 12:39 | XMS_ITS | Encounter Summary ---
:1940 Author Organization [facility] [place] [address] Care Team Providers Name Role Phone Brianne Sin MD Primary Care Provider Reason for Visit Reason Comments Chemotherapy Nivolumab, Cycle 13, Day 1 Treatment/Therapy Plan Authorization (Routine) - Closed Specialty Diagnoses / Procedures Referred By Contact Refer red To Contact Diagnoses 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 Dell Mccauley MD [facility] Hem Onc Infusion [address] [place] [address] [address] [place] [address] Phone: Fax: Referral ID Status Reason Start Date Expiration Date Visits Requ ested Visits Authorized [id number] Closed 02/16/2017 02/16/2018 1 1 Encounter Details Date Type Department Care Team Description 08/02/2017 Infusion Hematology Oncology at [facility] neoplasm of lower [facility] lobe of right lung [address] [place] [phone] Social History Tobacco Use Types Packs/Day Years Used Date Former Smoker Cigarettes 1 30 Quit: 10/01/19 80 Smokeless Tobacco: Never Used Alcohol Use Standard Drinks/Week Comments No 0 (1 standard drink = 0.6 oz pure alcoho l) Sex Assigned at Date Recorded Not on file documented as of this encounter Progress Notes Sol Menchaca RN - 08/02/2017 9:30 AM EDT INFUSION THERAPY ADMINISTRATION NOTES DIAGNOSIS: NSCLC CYCLE #: Cycle 13, Day 1 REASON FOR VISIT: Nivolumab infusion SUBJECTIVE: Parveen offers no complaints. OBJECTIVE: VSS. Weight stable. LAB DATA: WNL for today's infusion IV ACCESS: PIV Pre administration: Chemotherapy orders independently verified for drug name, route, and dosage per patient's height, weight and BSA by Sol Menchaca RN and James Mcghee [facility]. REACTIONS (DESCRIPTION, TIME, INTERVENTION AND EFFECTIVENESS) none ASSESSMENT: Parveen awake, alert and tolerated treatment well. PIV discontinued prior to dismissal. PLAN: Return to clinic per routine. documented in this encounter Plan of Treatment Upcoming Encounters Date Type Specialty Care Team Description 10/02/2022 Office Visit Dermatology Ashok Xiong MD [address] [facility] DERMATOLOGY [place], [place] [address] (Wo rk) documented as of this encounter Procedures Procedure Name Priority Date/Time Associated Diagnosis Comme nts LAB SCAN 08/02/2017 12:00 AM Results for this EDT procedure are i n the results section . documented in this encounter Results SCAN DOC: LAB (08/02/2017 12:00 AM EDT) Narrative 08/02/2017 12:00 AM EDT This result has an [...] nivolumab (OPDIVO) 240 mg in New Bag 08/02/2017 9:59 AM EDT 240 mg 124 mL/hr sodium chloride 0.9% 124 mL infusion 240 mg, Intravenous, ONCE, 1 dose, On 08/02/17 at 1045, Administer over 60 Minutes, Flush line with NS after each dose, This is a restricted medication. Is this being used for an FDA approved indication? Yes, This agent is restricted to outpatient use. Is this drug being given as an outpatient? Yes documented in this encounter Care Teams Organic Extractions Technician Relationship Specialty Start Date End Date Brianne Sin MD PCP - General Family Medicine 12/24/15 02/01/[address] [place] [address] [place] [address] documented as of this encounter
--- OUTSIDE RECORDS SUMMARY | 2022-07-17 12:39 | XMS_ITS | Encounter Summary ---
:1940 Author Organization [place] [address] Care Team Providers Name Role Phone Brianne Sin MD Primary Care Provider Reason for Visit Reason Comments Chemotherapy Cycle 6 Day 1 Treatment/Therapy Plan Authorization (Routine) - Closed Specialty Diagnoses / Procedures Referred By Contact Refer red To Contact Diagnoses 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 Dell Mccauley MD [facility] Hem Onc Infusion [address] [place] [address] [address] [place] [address] Phone: Fax: Referral ID Status Reason Start Date Expiration Date Visits Requ ested Visits Authorized [id number] Closed 02/16/2017 02/16/2018 1 1 Encounter Details Date Type Department Care Team Description 04/27/2017 Infusion Hematology Oncology at [facility] lignant neoplasm of lower [facility] lobe of right lung [address] [place] [phone] Social History Tobacco Use Types Packs/Day Years Used Date Former Smoker Cigarettes 1 30 Quit: 10/01/19 80 Alcohol Use Standard Drinks/Week Comments No 0 (1 standard drink = 0.6 oz pure alcoho l) Sex Assigned at Date Recorded Not on file documented as of this encounter Progress Notes Arely Ruggiero RN - 04/27/2017 11:30 AM EDT INFUSION THERAPY ADMINISTRATION NOTES DIAGNOSIS: NSCLC CYCLE #: Cycle 6, Day 1 -- Nivolumab REASON FOR VISIT:To receive chemotherapy SUBJECTIVE: Parveen offers no complaints. OBJECTIVE: Seen by provider. VSS. Weight stable. LAB DATA: WBC - 4.75, H/H - 13/39.7, Plt Ct - 189, ANC - 3.41, Lytes wnl, BUN/CR - 30/1.29 IV ACCESS: PIV Pre administration: Chemotherapy orders independently verified for drug name, route, and dosage per patient's height, weight and BSA by Kim Arzola RN and Laureen Contreras [facility]. REACTIONS (DESCRIPTION, TIME, INTERVENTION AND EFFECTIVENESS) none ASSESSMENT: Parveen was awake, alert and tolerated treatment well. PIV discontinued prior to discharge PLAN: Return to clinic per routine. documented in this encounter Plan of Treatment Upcoming Encounters Date Type Specialty Care Team Description 10/02/2022 Office Visit Dermatology Ashok Xiong MD [address] [facility] DERMATOLOGY [place], [place] [address] (Wo rk) documented as of this encounter Visit Diagnoses Diagnosis Malignant neoplasm of lower lobe of righ t lung documented in this encounter Administered Medications Inactive Administered Medications - up to 3 most recent administrations Medication Order MAR Action Action Date Dose Rate Site nivolumab (OPDIVO) 240 mg in New Bag 04/27/2017 12:40 PM EDT 240 m g 124 mL/hr sodium chloride 0.9% 124 mL infusion 240 mg, Intravenous, ONCE, 1 dose, On Wed04/27/17 at 1315, Administer over 60 Minutes, Flush line with NS after each dose, This is a restricted medication. Is this being used for an FDA approved indication? Yes, This agent is restricted to outpatient use. Is this drug being given as an outpatient? Yes documented in this encounter Care Teams Wastewater Treatment Plant Attendant Relationship Specialty Start Date End Date Brianne Sin MD PCP - General Family Medicine 12/24/15 02/01/[address] [place] [address] [place] [address] documented as of this encounter
--- OUTSIDE RECORDS SUMMARY | 2022-07-17 12:39 | XMS_ITS | Encounter Summary ---
:1940 Author Organization [facility] [place] [address] Care Team Providers Name Role Phone Brianne Sin MD Primary Care Provider Encounter Details Date Type Department Care Team Description 03/05/2017 Refill Dermatology at [facility] Ellie Mena, INFORMATION ASSOC [address] [facility] [place] [address] Social History Tobacco Use Types Packs/Day Years [...] MD [address] DERMATOLOGY [place], [place] [address] (Wo rk) documented as of this encounter Visit Diagnoses Not on filedocumented in this encounter Care Teams Leadite Man Relationship Specialty Start Date End Date Brianne Sin MD PCP - General Family Medicine 12/24/15 02/01/[address] [place] [address] [place] [address] documented as of this encounter
--- OUTSIDE RECORDS SUMMARY | 2022-07-17 12:39 | XMS_ITS | Encounter Summary ---
:1940 Author Organization [facility] [place] [address] Care Team Providers Name Role Phone Brianne Sin MD Primary Care Provider Reason for Visit Reason Comments Lung Cancer Encounter Details Date Type Department Care Team Description 03/31/2016 Office Visit [facility] Hosp Dell Mccauley, Malignant neoplasm of [address] upper lobe of right [address] [place] lung [address] [place], [place] [phone] (Wo rk) Social History Tobacco Use Types Packs/Day Years Used Date Former Smoker Cigarettes 11 30 Quit: 10/01/19 80 Alcohol Use Standard Drinks/Week Comments No 0 (1 standard drink = 0.6 oz pure alcoho l) Sex Assigned at Date Recorded Not on file documented as of this encounter Last Filed Vital Signs Vital Sign Reading Time Taken Comments Blood Pressure 117/67 03/31/2016 10:01 AM EDT Pulse 77 03/31/2016 10:01 AM EDT Temperature 36.2 ??C (97.2 ??F) 03/31/2016 10:01 AM EDT Respiratory Rate 16 03/31/2016 10:01 AM EDT Oxygen Saturation 99% 03/31/2016 10:01 AM EDT Inhaled Oxygen Concentration - - Weight 65.7 kg (144 lb 12.8 oz) 03/31/2016 10:01 AM EDT Height - - Body Mass Index 22.73 01/07/2016 8:56 AM EST documented in this encounter Progress Notes Dell Mccauley MD - 03/31/2016 10:00 AM EDT 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 We held his Alimta last month because of increasing symptoms related to treatment. He is pleased to tell me a few weeks ago those symptoms started to sonia and he is now feeling back to his old self. He has some occasional positional right-sided chest pain that can be reproduced by pressing on the ribs but otherwise is in general not there. Rotation can also sometimes bring that up. Other than that though, his breathing is fine. He does not have a cough. His appetite though has not picked up and food still tastes a bit bad. His energy levels, however, have improved and he is really not having any other symptoms. Current Outpatient Prescriptions on File Prior to [...] lab today shows a white count of 4.1, hemoglobin 12.5, hematocrit 39%, platelets 191. CMP shows normalization now of his creatinine now down to 1.2 and normal electrolytes and liver tests. Calcium is 9.6. Assessment/Plan: Parveen has improved symptomatically with the cessation of his maintenance chemotherapy. His side effects were such that it really made no sense to go with maintenance treatment if that was the etiology and certainly it appears to be the case. We talked about following him off of treatment and we will go ahead and check a PET scan in another month. We will see him back with lab at that point in time. We discussed second line treatment with nivolumab should he show progression. My hope is, however, he will have a durable remission for a time. We will see him back in a month with lab and a PET. He will call if there are issues or problems in the interim. I did tell him to stop his folic acid. documented in this encounter Plan of Treatment Upcoming Encounters Date Type Specialty Care Team Description 10/02/2022 Office Visit Dermatology Ashok Xiong MD [address] [facility] DERMATOLOGY [place], [place] [address] (Wo rk) documented as of this encounter Procedures Procedure Name Priority Date/Time Associated Diagnosis Comme nts LAB SCAN 04/28/2016 12:00 AM EDT PET SCAN (SCAN) 04/18/2016 12:00 AM EDT documented in this encounter Results SCAN DOC: LAB (04/28/2016 12:00 AM EDT) Narrative This result has an attachment that is no t available. Scanning Provider MEDIA MGR SCAN EXT ORDR/RSLT SCAN DOC: PET SCAN (04/18/2016 12:00 AM EDT) Narrative This result has an attachment that is no t available. Scanning Provider MEDIA MGR SCAN EXT ORDR/RSLT documented in this encounter Visit Diagnoses Diagnosis Malignant neoplasm of upper lobe of righ t lung Malignant neoplasm of upper lobe, bronch us or lung documented in this encounter Care Teams Shorthand Teacher Relationship Specialty Start Date End Date Brianne Sin MD PCP - General Family Medicine 12/24/15 02/01/[address] [place] [address] [place] [address] documented as of this encounter
--- OUTSIDE RECORDS SUMMARY | 2022-07-17 12:39 | XMS_ITS | Encounter Summary ---
:1940 Author Organization [facility] [place] [address] Care Team Providers Name Role Phone Brianne Sin MD Primary Care Provider Reason for Visit Reason Comments Lung Cancer Encounter Details Date Type Department Care Team Description 10/29/2015 Office Visit [facility] Hosp Dell Mccauley, Malignant neoplasm of [address] upper lobe of right [address] [place] [address] [place], [place] [phone] (Wo rk) Social History Tobacco Use Types Packs/Day Years Used Date Former Smoker Cigarettes 1 30 Quit: 10/01/19 80 Alcohol Use Standard Drinks/Week Comments No 0 (1 standard drink = 0.6 oz pure alcoho l) Sex Assigned at Date Recorded Not on file documented as of this encounter Last Filed Vital Signs Vital Sign Reading Time Taken Comments Blood Pressure 91/59 10/29/2015 9:51 AM EST Pulse 79 10/29/2015 9:51 AM EST Temperature 37.2 ??C (99 ??F) 10/29/2015 9:51 AM EST Respiratory Rate 16 10/29/2015 9:51 AM EST Oxygen Saturation 99% 10/29/2015 9:51 AM EST Inhaled Oxygen Concentration - - Weight 67.9 kg (149 lb 12.8 oz) 10/29/2015 9:51 AM EST Height - - Body Mass Index 23.51 10/01/2015 2:54 PM EST documented in this encounter Progress Notes Dell Mccauley MD - 10/29/2015 9:56 AM EST 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 The first cycle went reasonably well although he did develop a fairly significant rash about a week and a half ago that did fortunately respond well to a Medrol Dosepak. We talked about taking some dexamethasone after this cycle of chemotherapy for a few days to try and prevent that. That usually will. Otherwise, he is not having any particular fatigue. He notes a lot of sinus drainage and maybe some cough from that and he does think that his cough and breathing is perhaps a bit better. He is not having any particular pain or discomfort. His appetite was really good when he was on the prednisone but after he was off of it, it was less so. Nonetheless, his weight has stabilized and he is no longer losing weight. Past medical history and social history are reviewed and unchanged from when I saw him three weeks ago. He does continue on his Lovenox twice [...] Neurological: Negative. Hematological: Negative for adenopathy. BP 91/59 mmHg Pulse 79 Temp(Src) 37.2 ??C (99 ??F) Resp 16 Wt 67.95 kg (149 lb 12.8 oz) SpO2 99% Head: Normocephalic, without obvious abnormality, atraumatic Eyes: [...] normal Neurologic: Normal Review of his laboratory today shows a white count of 4.3, hemoglobin of 13.0, hematocrit of 40.7, platelet count of 253. He has 60% neutrophils and a total neutrophil count of 2400. CMP is essentially normal with a creatinine of 1.0 and albumin of 3.7, ALP of 65, and a calcium that is normal at 9.4. Assessment/Plan: Parveen is tolerating the carboplatin and Alimta well. He did have a rash and we will attempt to get that under control by giving him dexamethasone for three days after treatment. That usually will suppress that. If not though, he will give a call and we will put him on another Medrol Dosepak. As far as his lung cancer goes, symptomatically, he seems to be a bit better on his breathing and on exam today he does appear to have less of an effusion although on exam that is somewhat difficult to compare. His weight, however, is stabilized and that is usually a good sign. He is certainly tolerating the treatment reasonably well. He is starting to develop some mild treatment related anemia and we will continue to watch that. He continues on his Lovenox for DVT prophylaxis and plans are to leave him on that life long. We spent time today talking about the ultimate plan, which is to restage him after four cycles with another PET scan and once he has maximized his response to chemotherapy, consider maintenance Alimta. If he progresses at any point or just not have an adequate response, consideration to nivolumab would be given. He is well aware of that drug now with the recent advertising campaign on television. Followup is arranged for three weeks for cycle three. documented in this encounter Plan of Treatment Upcoming Encounters Date Type Specialty Care Team Description 10/02/2022 Office Visit Dermatology Ashok Xiong MD [address] [facility] DERMATOLOGY [place], [place] [address] (Wo rk) documented as of this encounter Visit Diagnoses Diagnosis Malignant neoplasm of upper lobe of righ t lung Malignant neoplasm of upper lobe, bronch us or lung documented in this encounter Care Teams Epidemiology Investigator Relationship Specialty Start Date End Date Brianne Sin MD PCP - General Family Medicine 10/21/15 12/23/[address] [place] [address] [place] [address] documented as of this encounter
--- OUTSIDE RECORDS SUMMARY | 2022-07-17 12:39 | XMS_ITS | Encounter Summary ---
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; at [facility] Malignant neoplasm of lower lobe of righ t lung [address] [place] [address] [address], [place] [phone] Social History Tobacco Use Types Packs/Day Years Used Date Former Smoker Cigarettes 30 Quit: 10/01/19 80 Alcohol Use Standard Drinks/Week Comments No 0 (1 standard drink = 0.6 oz pure alcoho l) Sex Assigned at Date Recorded Not on file documented as of this encounter Last Filed Vital Signs Vital Sign Reading Time Taken Comments Blood Pressure 141/84 02/16/2017 9:33 AM EDT Pulse 62 02/16/2017 9:33 AM EDT Temperature 36.4 ??C (97.5 ??F) 02/16/2017 9:33 AM EDT Respiratory Rate 18 02/16/2017 9:33 AM EDT Oxygen Saturation 100% 02/16/2017 9:33 AM EDT Inhaled Oxygen Concentration - - Weight 64.3 kg (141 lb 12.8 oz) 02/16/2017 9:31 AM EDT Height 173 cm (5' 8.11) 02/16/2017 9:31 AM EDT Body Mass Index 21.49 02/16/2017 9:31 AM EDT documented in this encounter Progress Notes Dell Mccauley MD - 02/16/2017 9:00 AM EDT 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 He was treated up in [place] and then went to [place] over the winter. Right before he left to [place], he had a PET scan which essentially showed a complete response and he has continued on every 2 week nivolumab since I saw him in the fall. He had a great winter. He has only had 2 problems that may be treatment related. One is a bit of dry mouth which responds to some mouth rinses and toothpaste. The other is a bit of itching which responds to Zyrtec. He has not had any significant bowel problems. No breathing problems. No cough. His weight has been stable, although he has not been able to put weight on. He has been physically active going to the gym and feels great otherwise. He does not have any fatigue. Review of systems is otherwise negative with [...] Neurological: Negative. Hematological: Negative for adenopathy. BP 141/84 (Patient Position: Sitting) Pulse 62 Temp 36.4 ??C (97.5 ??F) (Oral) Resp 18 Ht 173 cm (5' 8.11) Wt 64.3 kg (141 lb 12.8 oz) SpO2 100% BMI 21.49 kg/m2 Head: Normocephalic, without obvious abnormality, atraumatic [...] lab today shows a white count of 4.36, hemoglobin 12.9, hematocrit 39.2, and platelet count 176,000. CMP shows his normal creatinine of 1.45, normal electrolytes, potassium is 4.3, calcium 9.1. Liver tests are normal with an AST of 21, ALT of 25, alkaline phosphatase of 89 and albumin remains normal at 3.8. Thyroid studies are pending. ASSESSMENT/PLAN: Parveen is fine today for condition nivolumab. We discussed restaging him with another PET scan in about a month. He has been on nivolumab now with really no symptoms now for over a year and has been feeling great. There is a group of patients who have durable, long lasting responses on treatment and certainly, that seems to be the case here clinically at least. Followup is arrange for 2 weeks with lab and we will anticipate a PET scan up in [place] after that. 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
--- OUTSIDE RECORDS SUMMARY | 2022-07-17 12:39 | XMS_ITS | Encounter Summary ---
:1940 Author Organization [facility] [place] [address] Care Team Providers Name Role Phone Brianne Sin MD Primary Care Provider Reason for Visit Reason Comments Follow-up Encounter Details Date Type Department Care Team Description 03/05/2017 Office Visit Dermatology at [facility] Epiderm al cyst; Terri JANE Seborrheic keratosis [address] [facility] [address] [facility] [place] DERMATOLOGY [place], [place] [id number] [phone] Social History Tobacco Use Types Packs/Day Years Used Date Former Smoker Cigarettes 30 Quit: 10/01/19 80 Alcohol Use Standard Drinks/Week Comments No 0 (1 standard drink = 0.6 oz pure alcoho l) Sex Assigned at Date Recorded Not on file documented as of this encounter Progress Notes Ashok Xiong MD - 03/05/2017 9:15 AM EDT PROBLEM: Skin lesion of concern, back. Parveen follows up and after I last saw him he was started on Opdivo for his adenocarcinoma of the lung and has had a complete response, he states. The 5 cm tumor in his lung is now no longer visible. PET scan is scheduled in the upcoming weeks. He is understandably very excited about that and is doing well, but is still trying hard to gain weight back. Physical examination reveals a pleasant 76-year-old gentleman who is concerned about 2 spots on his back, which are both dilated ports of brandi and small follicular cysts underlying them, one more superiorly and one more inferiorly over the supraspinous back. He has benign seborrheic keratosis on the back and chest. He has a benign examination of his face. The follicular cyst on the right axillary vault has resolved. ASSESSMENT AND PLAN: 1. The patient reassured about today's benign examination. a. Recommend I see him again p.r.n. for new lesion/concerns. 2. Pruritis associated with ongoing Opdivo chemotherapy treatment for his adenocarcinoma. a. Recommend he increase his certirizine for his pruritus from once a day to one p.o. b.i.d. b. Begin hydroxyzine 10 mg 1-2 p.o. at bedtime #60 will be called in with 2 refills to his [facility] in [place]. Return to clinic here p.r.n. CC: Brianne Sin MD documented in this encounter Plan of Treatment Upcoming Encounters Date Type Specialty Care Team Description 10/02/2022 Office Visit Dermatology Ashok Xiong MD [address] [facility] DERMATOLOGY [place], [place] [address] (Wo rk) documented as of this encounter Visit Diagnoses Diagnosis Epidermal cyst Sebaceous cyst Seborrheic keratosis Other seborrheic keratosis documented in this encounter Care Teams Life Insurance Actuary Relationship Specialty Start Date End Date Brianne Sin MD PCP - General Family Medicine 12/24/15 02/01/[address] [place] [address] [place] [phone] documented as of this encounter
--- OUTSIDE RECORDS SUMMARY | 2022-07-17 12:39 | XMS_ITS | Encounter Summary ---
:1940 Author Organization [facility] [place] [address] Care Team Providers Name Role Phone Brianne Sin MD Primary Care Provider Reason for Visit Reason Comments Lung Cancer Encounter Details Date Type Department Care Team Description 08/11/2016 Office Visit [facility] Hosp Dell Mccauley, Malignant neoplasm of [address] MD suh of right lung [address] [address] [place], [place] [phone] (Wo rk) Social History Tobacco Use Types Packs/Day Years Used Date Former Smoker Cigarettes 1 30 Quit: 10/01/19 80 Alcohol Use Standard Drinks/Week Comments No 0 (1 standard drink = 0.6 oz pure alcoho l) Sex Assigned at Date Recorded Not on file documented as of this encounter Last Filed Vital Signs Vital Sign Reading Time Taken Comments Blood Pressure 132/76 08/11/2016 10:49 AM EDT Pulse 72 08/11/2016 10:49 AM EDT Temperature 36.4 ??C (97.5 ??F) 08/11/2016 10:49 AM EDT Respiratory Rate 72 08/11/2016 10:49 AM EDT Oxygen Saturation 100% 08/11/2016 10:49 AM EDT Inhaled Oxygen Concentration - - Weight 65.4 kg (144 lb 2.9 oz) 08/11/2016 10:49 AM EDT Height - - Body Mass Index 22.63 01/07/2016 8:56 AM EST documented in this encounter Progress Notes Dell Mccauley MD - 08/11/2016 10:00 AM EDT 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 He had shown progression so was started on nivolumab, and we had just had not rescanned him, although clinically he had been doing well over the past few months. I am pleased to be able to tell him he has had a near-complete response with essentially complete resolution of the tumor within the chest with only some mild activity remaining in his partially collapsed right lower lobe. He has no uptake anywhere else on PET scanning, and this report is consistent with a complete response to treatment. He is extremely pleased to hear that and continues to do well. Review of systems is otherwise negative with [...] supraclavicular, and axillary nodes normal Neurologic: Normal Laboratory is reviewed. White count 6.2; hemoglobin 12.6; hematocrit 39.5; platelets 178,000, absolute neutrophil count 3.7. CMP is normal with a creatinine of 1.1, sodium of 141, total bili of 0.7. His T4 is 9.1, and TSH is 4.11. ASSESSMENT/PLAN: Parveen is doing exceptionally well and has had essentially a complete response to nivolumab. Some of these responses are durable, and in that regard, things may continue to be good for him for quite some time. That being said, he does tell me he is planning on going to [place] this winter, basically from August 15 to February 13. There is a local Oncology group where he is going, and I have asked him to contact them for an appointment, as I would continue him on treatment every 2 weeks. He is not having any autoimmune effects from the treatment and is tolerating things well. We will continue on with treatment today and see him back in 2 weeks for another infusion. He will let me know if there are issues or problems in the interim. documented in this encounter Plan of Treatment Upcoming Encounters Date Type Specialty Care Team Description 10/02/2022 Office Visit Dermatology Ashok Xiong MD [address] [place] [address] DERMATOLOGY [place] [phone] (Wo rk) documented as of this encounter Procedures Procedure Name Priority Date/Time Associated Diagnosis Comme nts LAB SCAN 08/11/2016 12:00 AM EDT LAB SCAN 08/11/2016 12:00 AM EDT documented in this encounter Results SCAN DOC: LAB (08/11/2016 12:00 AM EDT) Narrative This result has an attachment that is no t available. Scanning Provider MEDIA MGR SCAN EXT ORDR/RSLT SCAN DOC: LAB (08/11/2016 12:00 AM EDT) Narrative This result has an attachment that is no t available. 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
--- OUTSIDE RECORDS SUMMARY | 2022-07-17 12:39 | XMS_ITS | Encounter Summary ---
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 Dell Mccauley MD [facility] Hem Onc Infusion [address] [place] [phone] [place] [address] Phone: Fax: Referral ID Status Reason Start Date Expiration Date Visits Requ ested Visits Authorized [id number] Closed 02/16/2017 02/16/2018 1 1 Encounter Details Date Type Department Care Team Description 05/11/2017 Infusion [facility] of lower [facility] lobe of right lung [address] [place] [phone] Social History Tobacco Use Types Packs/Day Years Used Date Former Smoker Cigarettes 1 30 Quit: 10/01/19 80 Alcohol Use Standard Drinks/Week Comments No 0 (1 standard drink = 0.6 oz pure alcoho l) Sex Assigned at Date Recorded Not on file documented as of this encounter Progress Notes Radha Martinez RN - 05/11/2017 10:30 AM EDT INFUSION THERAPY ADMINISTRATION NOTES DIAGNOSIS: NSCLC CYCLE #: Cycle 7, Day 1 -- Nivolumab REASON FOR VISIT: To receive chemotherapy SUBJECTIVE: Arnold offers no complaints. OBJECTIVE: VSS. Weight stbale. Seen by provider. LAB DATA: WBC - 4.47, H/H - 13.1/39.8, Plt Ct - 178, ANC - 2.78, Lytes wnl, T4 - 9.0, BUN/CR - 27/1.40 IV ACCESS: PIV Pre administration: Chemotherapy orders independently verified for drug name, route, and dosage per patient's height, weight and BSA by Damion Martinez RN and Laureen Contreras [facility]. REACTIONS (DESCRIPTION, TIME, INTERVENTION AND EFFECTIVENESS) none ASSESSMENT: Parveen awake, alert and tolerated treatment well. PIV discontinued prior to dismissal. PLAN: Return to clinic per routine. documented in this encounter Plan of Treatment Upcoming Encounters Date Type Specialty Care Team Description 10/02/2022 Office Visit Dermatology Ashok Xiong MD [address] [facility] DERMATOLOGY [place], [place] [address] (Wo rk) documented as of this encounter Visit Diagnoses Diagnosis Malignant neoplasm of lower lobe of righ t lung documented in this encounter Administered Medications Inactive Administered Medications - up to 3 most recent administrations Medication Order MAR Action Action Date Dose Rate Site nivolumab (OPDIVO) 240 mg in New Bag 05/11/2017 11:17 AM EDT 240 m g 124 mL/hr sodium chloride 0.9% 124 mL infusion 240 mg, Intravenous, ONCE, 1 dose, On Wed05/11/17 at 1200, Administer over 60 Minutes, Flush line with NS after each dose, This is a restricted medication. Is this being used for an FDA approved indication? Yes, This agent is restricted to outpatient use. Is this drug being given as an outpatient? Yes documented in this encounter Care Teams Pearl Digger Relationship Specialty Start Date End Date Brianne Sin MD PCP - General Family Medicine 12/24/15 02/01/[address] [place] [address] [place] [phone] documented as of this encounter
--- OUTSIDE RECORDS SUMMARY | 2022-07-17 12:39 | XMS_ITS | Encounter Summary ---
:1940 Author Organization [place] [address] Care Team Providers Name Role Phone Brianne Sin MD Primary Care Provider Reason for Visit Reason Comments Lung Cancer Encounter Details Date Type Department Care Team Description 07/14/2016 Office Visit [facility] Hosp Dell Mccauley, Malignant neoplasm of [address] upper lobe of right [address] [place] [address] [place], [place] [phone] (Wo rk) Social History Tobacco Use Types Packs/Day Years Used Date Former Smoker Cigarettes 1 30 Quit: 10/01/19 80 Alcohol Use Standard Drinks/Week Comments No 0 (1 standard drink = 0.6 oz pure alcoho l) Sex Assigned at Date Recorded Not on file documented as of this encounter Last Filed Vital Signs Vital Sign Reading Time Taken Comments Blood Pressure 107/69 07/14/2016 10:46 AM EDT Pulse 69 07/14/2016 10:46 AM EDT Temperature 36.9 ??C (98.4 ??F) 07/14/2016 10:46 AM EDT Respiratory Rate 18 07/14/2016 10:46 AM EDT Oxygen Saturation 98% 07/14/2016 10:46 AM EDT Inhaled Oxygen Concentration - - Weight 63.8 kg (140 lb 10.5 oz) 07/14/2016 10:46 AM EDT Height - - Body Mass Index 22.08 01/07/2016 8:56 AM EST documented in this encounter Progress Notes Dell Mccauley MD - 07/14/2016 10:30 AM EDT 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 He is continuing to do well from a respiratory standpoint. He notes absolutely no respiratory symptoms, and in fact, notes he could probably go jogging, he is doing well enough in that regard. He has continued to lose weight overall and is convinced that he is eating more than usual, although I suspect that is not the case. The weight loss is slow and subtle, but nonetheless a worry for him. We spent some time talking about that. He is not having any other symptoms elsewhere. No pain anywhere other than his right shoulder, which is a chronic problem. Review of systems is negative. Review of systems is otherwise negative [...] and axillary nodes normal Neurologic: Normal Laboratory today shows white count of 4.8, hemoglobin 12.6, hematocrit 39.6, platelet count 177. CMP shows normal electrolytes. Creatinine is 1.1. Liver tests are normal with normal transaminases and an ALP of 81, bilirubin is 0.6, SGOT 43. T4 is 8.6, with a TSH of 4.25. ASSESSMENT/PLAN: Parveen is tolerating the nivolumab. Clinically, he is doing much better than one would expect if he was off of any treatment and in that regard the fact he is breathing has not deteriorated and he has no respiratory symptoms is suggestive that perhaps he is a responder. There can be flare reactions, and we spent some time talking about that as when we restage him we will have to make a decision on whether anything we see represents improvement or not. In some cases, the PET scan will actually look worse on the nivolumab for a time before improving. In other cases, we see improvement. I would be inclined to interpret any worsening as a flare reaction considering how well he is doing clinically. He has no evidence of any autoimmune dysfunction. Thyroid status is fine. There is nothing to suggest any autoimmune endocrine problems, and nothing to suggest any pulmonary or liver reaction to the nivolumab. We will go ahead with treatment today, set him up for treatment in 2 weeks, and then after his sixth cycle in 2 weeks, we will check a PET scan before proceeding with further treatment. We also spent time talking about some of the other options that are available. He will call if there is issues or problems in the interim. documented in this encounter Plan of Treatment Upcoming Encounters Date Type Specialty Care Team Description 10/02/2022 Office Visit Dermatology Ashok Xiong MD [address] [facility] DERMATOLOGY [place], [place] [address] (Wo rk) documented as of this encounter Procedures Procedure Name Priority Date/Time Associated Diagnosis Comme nts CT SCAN (SCAN) 08/08/2016 12:00 AM EDT LAB SCAN 07/28/2016 12:00 AM EDT LAB SCAN 07/28/2016 12:00 AM EDT LAB SCAN 07/14/2016 12:00 AM EDT LAB SCAN 07/14/2016 12:00 AM EDT documented in this encounter Results SCAN DOC: CT SCAN (08/08/2016 12:00 AM EDT) Narrative This result has an attachment that is no t available. Scanning Provider MEDIA MGR SCAN EXT ORDR/RSLT SCAN DOC: LAB (07/28/2016 12:00 AM EDT) Narrative This result has an attachment that is no t available. Scanning Provider MEDIA MGR SCAN EXT ORDR/RSLT SCAN DOC: LAB (07/28/2016 12:00 AM EDT) Narrative This result has an attachment that is no t available. Scanning Provider MEDIA MGR SCAN EXT ORDR/RSLT SCAN DOC: LAB (07/14/2016 12:00 AM EDT) Narrative This result has an attachment that is no t available. Scanning Provider MEDIA MGR SCAN EXT ORDR/RSLT SCAN DOC: LAB (07/14/2016 12:00 AM EDT) Narrative This result has an attachment that is no t available. Scanning Provider MEDIA MGR SCAN EXT ORDR/RSLT documented in this encounter Visit Diagnoses Diagnosis Malignant neoplasm of upper lobe of righ t lung Malignant neoplasm of upper lobe, bronch us or lung documented in this encounter Care Teams Travel Specialist Relationship Specialty Start Date End Date Brianne Sin MD PCP - General Family Medicine 12/24/15 02/01/[address] [place] [address] [place] [phone] documented as of this encounter
--- OUTSIDE RECORDS SUMMARY | 2022-07-17 12:39 | XMS_ITS | Encounter Summary ---
:1940 Author Organization [facility] [place] [address] Care Team Providers Name Role Phone Brianne Sin MD Primary Care Provider Reason for Visit Reason Comments Follow-up cyst right axillary vault Encounter Details Date Type Department Care Team Description 02/04/2016 Procedure visit Dermatology at [facility], Nataliya ermal cyst Terri [address] [facility] 580 [facility] B DERMATOLOGY [place], [place] [phone] Social History Tobacco Use Types Packs/Day Years Used Date Former Smoker Cigarettes 1 30 Quit: 10/01/19 80 Alcohol Use Standard Drinks/Week Comments No 0 (1 standard drink = 0.6 oz pure alcoho l) Sex Assigned at Date Recorded Not on file documented as of this encounter Progress Notes Ashok Xiong MD - 02/04/2016 9:50 AM EDT Problem: Follow up for excision follicular cyst right axillary vault. Parveen follows up and shortly after he left this office on January 15, the area began to swell and was quite red. It has drained. He has been applying mupirocin ointment to it. He used a warm compress to drain some of the contents out. Physical examination reveals the follicular cyst is inflamed in the right axillary vault along the anterior axillary line. Assessment and Plan: Inflamed follicular cyst, right axillary vault. a. Today not painful to palpation but obviously inflamed. b. May DC mupirocin. c. Wound not recommend any further warm compresses. d. Allow the erythema to resolve and then he will call us and reschedule for another attempt at excision of this at his convenience. 2. Adenocarcinoma lung. a. Patient is undergoing maintenance therapy for this and he is attempting to adjust to his symptoms of runny eyes, runny nose, fatigue, and occasional nausea. b. Patient shows me the most recent result of his PET scan that shows significant improvement and decrease in tumor size with chemotherapy to date. COPY: Brianne Sin M.D. documented in this encounter Plan of Treatment Upcoming Encounters Date Type Specialty Care Team Description 10/02/2022 Office Visit Dermatology Ashok Xiong MD [address] [place] [address] DERMATOLOGY [place], [place] [address] (Wo rk) documented as of this encounter Visit Diagnoses Diagnosis Epidermal cyst Sebaceous cyst documented in this encounter Care Teams Rouge Sifter And Miller Relationship Specialty Start Date End Date Brianne Sin MD PCP - General Family Medicine 12/24/15 02/01/[address] [place] [address] [place] [phone] documented as of this encounter
--- OUTSIDE RECORDS SUMMARY | 2022-07-17 12:40 | XMS_ITS | Encounter Summary ---
:1940 Author Organization [facility] Address [facility] [place] [address] Care Team Providers Name Role Phone Miquel Franco MD Primary Care Provider Reason for Visit Reason Comments Eye Problem Patient indicates that his v ision has improved very significantly. 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 [place], [place] [address] (Wo rk) Social History Tobacco Use Types Packs/Day Years Used Date Former Smoker Alcohol Use Standard Drinks/Week Comments No 0 (1 standard drink = 0.6 oz pure alcoho l) Sex Assigned at Date Recorded Not on file documented as of this encounter Progress Notes Luis Alfredo Mackey MD - 07/11/2013 8:44 AM EDT July 11, 2013 Kvng Beasley, OD Emergency Medical Service Manager [address] [place] [address] RE: Parveen Gamez Chetan#: [id number] Beasley: I just want to keep you informed regarding your patient, Parveen Gamez, whom I saw on 07/11/2013. I have asked him to return to see you next month as scheduled. 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 On 02/28/2013, he underwent intravitreal therapy with Lucentis. Subjectively, he indicates that his left eye is now is just as good as his right. He denies any new symptoms or other problems. Mr. Gamez presented today measuring 20/20 in each eye. Intraocular pressures were 10 right eye and 10 left eye. Slit-lamp examination revealed no new changes. Posterior segment examination of each eye was normal. Some subtle telangiectatic changes were seen in the left eye. Importantly, there were no signs of edema nor there were signs of neovascularization. Impression: 1. Branch vein occlusion, status post Lucentis therapy, left eye. Stable. 2. Mild epiretinal membrane, each eye. 3. 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 4. Nuclear sclerosis, both eyes. Discussion: I reviewed with Mr. Gamez all of my findings and concerns today. The branch vein occlusion has completed regressed. There is still a very small chance of recurrent edema or neovascularization could occur. The epiretinal membranes in each eye are barely visible. I would be pleased to see Mr. Gamez at your request at any point in the future. I think his prognosis is excellent. Thank you kindly for asking me provide consultation and care for this nice patient. As I have stated many times, if there are any questions or concerns, please do not hesitate to contact me. . Respectfully, Luis Alfredo Mackey MD documented in this encounter Miscellaneous Notes Addendum Note - Luis Alfredo Mackey MD - 07/11/2013 8:58 AM EDT Addended by: LUIS ALFREDO MACKEY on: 07/11/2013 08:58 AM Modules accepted: Orders documented in this encounter Plan of Treatment Upcoming Encounters Date Type Specialty Care Team Description 10/02/2022 Office Visit Dermatology Ashok Xiong MD [address] [place] [address] DERMATOLOGY [place], [place] [address] (Wo rk) documented as of this encounter Procedures Procedure Name Priority Date/Time Associated Diagnosis Comme nts OCT RETINA - OS - LEFT Routine 07/11/2013 8:58 AM EDT Macular pucker of both EYE eyes Branch retinal vein occlusion of left eye documented in this encounter Results OCT [id number] EYE (07/11/2013 8:58 AM EDT) Anatomical Region Laterality Modality Other Specimen (Source) Anatomical Location Collection Method / Collectio n Time Received Time / Laterality Volume Luis Alfredo Mackey MD OPHTHALMOLOGY SERVICES ORDER NICHOLAS documented in this encounter Visit Diagnoses Diagnosis Retinoschisis of left eye Retinoschisis, unspecified Macular pucker of both eyes Macular puckering of retina Branch retinal vein occlusion of left ey e 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
--- OUTSIDE RECORDS SUMMARY | 2022-07-17 12:40 | XMS_ITS | Encounter Summary ---
:1940 Author Organization [facility] [place] [address] Care Team Providers Name Role Phone Jarvis Franks MD Primary Care Provider Encounter Details Date Type Department Care Team Description 06/16/2011 Abstract Dermatology Mari Patterson, RN [address] [place], [place] [address] Social History Tobacco Use Types Packs/Day Years Used Date Never Assessed Sex Assigned at Date Recorded Not on file documented as of this encounter Plan of Treatment Upcoming Encounters Date Type Specialty Care Team Description 10/02/2022 Office Visit Dermatology Ashok Xiong MD [address] [place] [address] DERMATOLOGY [place], [place] [address] (Wo rk) documented as of this encounter Visit Diagnoses Not on filedocumented in this encounter Care Teams Anthropology Professor Relationship Specialty Start Date End Date Jarvis Franks MD PCP - General 09/23/10 02/27/13 [facility] HEMATOLOGY/[place] [address] documented as of this encounter
--- OUTSIDE RECORDS SUMMARY | 2022-07-17 12:40 | XMS_ITS | Encounter Summary ---
:1940 [place] [address] Care Team Providers Name Role Phone Jarvis Franks MD Primary Care Provider Encounter Details Date Type Department Care Team Description 02/23/2013 Abstract Ophthalmology at [facility] Amari Long MD [facility] [place] [address] OPHTHALMOLOGY DEPT. [phone] [place], [place] [address] (Wo rk) Social History Tobacco Use Types Packs/Day Years Used Date Former Smoker Alcohol Use Standard Drinks/Week Comments Not Asked 0 (1 standard drink = 0.6 oz pure alcoho l) Sex Assigned at Date Recorded Not on file documented as of this encounter Plan of Treatment Upcoming Encounters Date Type Specialty Care Team Description 10/02/2022 Office Visit Dermatology Ashok Xiong MD [address] [place] [address] DERMATOLOGY [place], [place] [address] (Wo rk) documented as of this encounter Visit Diagnoses Not on filedocumented in this encounter Care Teams Server Service Assistant Relationship Specialty Start Date End Date Jarvis Franks MD PCP - General 09/23/10 02/27/13 [facility] HEMATOLOGY/[place] [address] documented as of this encounter
--- OUTSIDE RECORDS SUMMARY | 2022-07-17 12:40 | XMS_ITS | Encounter Summary ---
:1940 Author Organization [facility] [place] [address] Care Team Providers Name Role Phone Miquel Franco MD Primary Care Provider Reason for Visit Reason Comments Blurred Vision Patient presents for followu p evaluation of his branch vein occlusion after treatment in the left eye. 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 [place], [place] [address] (Wo rk) Social History Tobacco Use Types Packs/Day Years Used Date Former Smoker Alcohol Use Standard Drinks/Week Comments No 0 (1 standard drink = 0.6 oz pure alcoho l) Sex Assigned at Date Recorded Not on file documented as of this encounter Progress Notes Luis Alfredo Bashir MD - 04/05/2013 6:39 PM EDT Patient demonstrates significant resolution of edema and is defined on the OCT scan. There is still some mild vessel tortuosity but no high-risk features or ascertained and there are no signs of rubeosis nor are there signs of peripheral ischemia or neovascularization. Return 8 weeks for dilated examination. Imaging studies only if indicated. I informed the patient that there is a one and 3 risk that he may develop recurrent edema or other problems at that he should call with any pain reduced vision floaters or other changes. Test each eye separately at least twice a week and call if there changes. Continue close followup with medical physician. Luis Alfredo Bashir M.D. documented in this encounter Plan of Treatment Upcoming Encounters Date Type Specialty Care Team Description 10/02/2022 Office Visit Dermatology Ashok Xiong MD [address] [facility] DERMATOLOGY [place], [place] [address] (Wo rk) documented as of this encounter Procedures Procedure Name Priority Date/Time Associated Diagnosis Comme nts OCT RETINA - OS - LEFT Routine 04/05/2013 6:39 PM EDT Branch r etinal vein EYE occlusion of lef t eye Retinoschisis of left eye Nuclear sclerosi s Transient Ischemia documented in this encounter Results OCT [facility] EYE (04/05/2013 6:39 PM EDT) Anatomical Region Laterality Modality Other Specimen (Source) Anatomical Location Collection Method / Collectio n Time Received Time / Laterality Volume Luis Alfredo Bashir MD OPHTHALMOLOGY SERVICES ORDER NICHOLAS documented in this encounter Visit Diagnoses Diagnosis Branch retinal vein occlusion of left ey e - Primary 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
--- OUTSIDE RECORDS SUMMARY | 2022-07-17 12:40 | XMS_ITS | Encounter Summary ---
:1940 [place] [address] Care Team Providers Name Role Phone Luis Alfredo Myers MD Primary Care Provider Encounter Details Date Type Department Care Team Description 09/21/2015 Hospital Encounter Radiology Library at [facility], [place] [address] Social History Tobacco Use Types Packs/Day Years Used Date Former Smoker Alcohol Use Standard Drinks/Week Comments No 0 (1 standard drink = 0.6 oz pure alcoho l) Sex Assigned at Date Recorded Not on file documented as of this encounter Medications at Time of Discharge Medication Sig Dispensed Refills Start Date End Date lisinopril Take 10 mg by mouth 0 02/16 (PRINIVIL;ZESTRIL) 10 mg daily. tablet METOPROLOL SUCCINATE ORAL Take 25 mg by mouth 0 09/04/2021 daily as needed. WARFARIN SODIUM (COUMADIN Take 7.5 mg by 0 10/01/2015 ORAL) mouth daily. 5 mg Sun & Wed SIMVASTATIN (ZOCOR ORAL) Take 10 mg by mouth 0 02/16/2017 daily. documented as of this encounter Plan of Treatment Upcoming Encounters Date Type Specialty Care Team Description 10/02/2022 Office Visit Dermatology Ashok Xiong MD [address] [place] [address] DERMATOLOGY [place], [place] [address] (Wo rk) documented as of this encounter Procedures Procedure Name Priority Date/Time Associated Diagnosis Comme nts FILM LIBRARY Routine 09/21/2015 12:00 AM Pain Results for this STORAGE ONLY EST procedure are i n NUCLEAR MEDICINE the results section. documented in this encounter Results Film Library- Storage only nuclear medicine (09/21/2015 12:00 AM EST) Specimen (Source) Anatomical Location Collection Method / Collectio n Time Received Time / Laterality Volume Narrative [facility] - 09/30/2015 9:30 AM EST See PACS for result report. Dr Tano Velázquez IM FILM LIBRARY ORDERABLES Performing Organization Address City/State/ZIP Code Phon e Number [place], [place] documented in this encounter Visit Diagnoses Diagnosis Pain Generalized pain documented in this encounter Care Teams Stripper Shovel Operator Relationship Specialty Start Date End Date Luis Alfredo Myers MD PCP - General 02/19/14 10/20/15 [address] [place] [address] documented as of this encounter
--- OUTSIDE RECORDS SUMMARY | 2022-07-17 12:40 | XMS_ITS | Encounter Summary ---
:1940 Author Organization [facility] [place] [address] Care Team Providers Name Role Phone Luis Alfredo Myers MD Primary Care Provider Reason for Visit Reason Comments Lung Cancer Encounter Details Date Type Department Care Team Description 10/01/2015 Office Visit [facility] Dell Mccauley, Malignant neoplasm of [address] lower lobe of right [address] [place] lung [address] [place], [place] [phone] [id number] (Wo rk) Social History Tobacco Use Types Packs/Day Years Used Date Former Smoker Cigarettes 1 30 Quit: 10/01/19 80 Alcohol Use Standard Drinks/Week Comments No 0 (1 standard drink = 0.6 oz pure alcoho l) Sex Assigned at Date Recorded Not on file documented as of this encounter Last Filed Vital Signs Vital Sign Reading Time Taken Comments Blood Pressure 120/82 10/01/2015 2:54 PM EST Pulse 90 10/01/2015 2:54 PM EST Temperature 36.3 ??C (97.3 ??F) 10/01/2015 2:54 PM EST Respiratory Rate 16 10/01/2015 2:54 PM EST Oxygen Saturation 97% 10/01/2015 2:54 PM EST Inhaled Oxygen Concentration - - Weight 70.9 kg (156 lb 4.9 oz) 10/01/2015 2:54 PM EST Height 170 cm (5' 6.93) 10/01/2015 2:54 PM EST Body Mass Index 24.53 10/01/2015 2:54 PM EST documented in this encounter Progress Notes Dell Mccauley MD - 10/01/2015 2:58 PM EST Diagnosis 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 Luis Alfredo Myers in regards to his newly diagnosed adenocarcinoma of the right lower lobe of the lung. The patient tells me he has been losing a little bit of weight over the summer and probably overall has lost around 20 pounds with a poor appetite overall. He also developed a cough and an x-ray showed an infiltrate so was started on some antibiotics. He ended up being treated for a pneumonia. 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 This eventually led [facility] and they basically felt he had a pneumonitis. Prior to discharge, however, they did get a CT scan on him and that showed a pulmonary embolus on the left. Subsequent Doppler study showed that he had deep venous thrombosis in both femoral veins and additionally the CT of his chest showed a right-sided mass with right-sided effusion. It raised the question of a possible atrial metastasis and definite adenopathy. This led to a CT-guided needle biopsy of one of the right-sided nodes, which confirmed adenocarcinoma. Recording Clerk mutations are being done at the current time and are not yet available. He subsequently had a PET scan here in [place] and a brain MRI. The PET scan here in [place] showed the extensive tumor along with a large right pleural effusion. They also questioned some additional sites of possible metastatic disease. They thought he might have tumor in his right AC joint but in talking to the patient today, he has had shoulder surgery there. Uptake was mild there. Additionally, there was a question of a possible adrenal gland metastasis but it is a very soft finding. It was also confirmed that he had a large right pleural effusion with some activity there and there was a possibility of a satellite metastatic lesion in the consolidated right lower lobe of the lung. Brain MRI did not show any evidence of metastatic disease. In talking to the patient today, other than the weight loss and cough, he does not have any pain or discomfort. He actually feels well overall and came well prepared with questions. He was accompanied both by his and daughter who also asked very good questions. We spent a long time today going over the findings so far and possible scenarios for treatment. Past Medical History Diagnosis Date ??? Hypertension ??? Cataract ??? Hyperlipidemia ??? Branch retinal vein occlusion of left eye 02/28/2013 ??? 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 Tinnitus ??? Cancer of right lung 2014 ??? DVT of lower extremity, bilateral ??? Pulmonary embolism ??? BPH (benign prostatic hyperplasia) ??? Cancer of right lung Past Surgical History Procedure Laterality Date ??? Intravitreal injection Aug 2012 Lucentis OS - [place] ??? Intravitreal injection Oct 2012 Avastin OS - [place] ??? Intravitreal injection Dec 2011 Lucentis [place] ??? Intravitreal injection 02/28/2013 Lucentis OS-BRVO CBC Allergies Allergen Reactions ??? Pcn [Penicillins] ??? Sulfa (Sulfonamide Antibiotics) Medications 10/01/15 1507 Medication Sig Taking? enoxaparin (LOVENOX) 80 mg/0.8 mL Syringe Inject 80 mg subcutaneously 2 times daily. Indications: Deep Vein Thrombosis with Pulmonary Embolism Yes lisinopril (PRINIVIL;ZESTRIL) 10 mg tablet Take 10 mg by mouth daily. METOPROLOL SUCCINATE ORAL Take 25 mg by mouth 2 times daily. SIMVASTATIN (ZOCOR ORAL) Take 10 mg by mouth daily. Family History Problem Relation Age of Onset ??? Amblyopia Neg Hx ??? Cataracts Neg Hx ??? Diabetes Neg Hx ??? Glaucoma Neg Hx ??? Hypertension Neg Hx ??? Macular Degeneration Neg Hx ??? Retinal Detachment Neg Hx ??? Strabismus Neg Hx ??? Thyroid Disease Neg Hx ??? Heart Disease Neg Hx ??? Breast Cancer Mother ??? Breast Cancer Sister ??? Chronic Obstructive Pulmonary Disease Father History Social History ??? Marital Status: Spouse Name: N/A Number of Children: N/A ??? Years of Education: N/A Occupational History ??? Not on file. Social History Main Topics ??? Smoking status: Former Smoker -- 1.00 packs/day for 30 years Types: Cigarettes Quit date: 10/01/1980 ??? Smokeless tobacco: Not on file ??? Alcohol Use: No ??? Drug Use: No ??? Sexual Activity: Not on file Other Topics Concern ??? 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 We checked a CMP, which shows a normal creatinine of 0.9, normal calcium of 9.3, albumin is 3.5. Liver tests are normal with an ALP of 80. Hemoglobin is 13.1, hematocrit 39.8, white count 6.3, and platelets 238. Absolute neutrophil count is normal at 5.08. Assessment/Plan: Parveen has a very locally advanced adenocarcinoma of the right lung. We discussed possible treatment options. His mule driver mutations are still pending and if he was EGFR or ALK positive, recommendations would be different but most of these tumors are not. Those tests are pending but should be back by next week. In view of the findings, we discussed the possibility that perhaps he had a locally advanced stage III tumor rather than a stage IV. I think this is very unlikely. I am not convinced though he has an adrenal met and certainly the bony met is explained by his surgery and when I reviewed the scan I would tend to agree that this is probably not tumor. I do think, however, it is very likely he has a malignant effusion on the right. That plus a large volume tumor makes this highly improbable to be a curable tumor with combination chemotherapy and radiation. I did discuss it with Radiation Oncology and they concurred. All of that being said, recommendations would be to consider palliative chemotherapy with carboplatin and Alimta. We went over various chemotherapy options with him today and we also talked about palliative options as well but he is inclined to treat this tumor. Chemotherapy teaching was done regarding the doublet treatment. We gave him written literature and the nurses spent some time with him as well. I did tell him if his mule driver studies were positive, we would consider alternative therapy but he would like to get going on things so we will arrange for starting treatment next week. He will need to take folic acid daily while on treatment. We also called in an antiemetic. As far as his DVT, we would recommend continuation of Lovenox. He actually developed the clots on therapeutic Coumadin. Although one could consider increasing that medication and perhaps keeping his INR between 3 and 4 as an alternative to continuing Lovenox, I do think his diet may be a bit inconsistent over the next few months while on treatment and that would be very difficult to manage. In that regard, Lovenox would be a better choice. I did tell him, however, instead of taking it twice a day, it would reasonable to take Lovenox 1.5 mg/kilo, which for him works out to about 120 mg once a day instead of a twice-a-day scheduled. We will see him next week for the start of treatment. documented in this encounter Plan of Treatment Upcoming Encounters Date Type Specialty Care Team Description 10/02/2022 Office Visit Dermatology Ashok Xiong MD [address] [place] [address] DERMATOLOGY [place] [phone] (Wo rk) documented as of this encounter Visit Diagnoses Diagnosis Malignant neoplasm of lower lobe of righ t lung documented in this encounter Care Teams Musical Instruments Assembler Relationship Specialty Start Date End Date Luis Alfredo Myers MD PCP - General 02/19/14 10/20/15 [address] [place] [address] documented as of this encounter
--- OUTSIDE RECORDS SUMMARY | 2022-07-17 12:40 | XMS_ITS | Encounter Summary ---
:1940 Author Organization [facility] [place] [address] Care Team Providers Name Role Phone Jarvis Franks MD Primary Care Provider Reason for Visit Reason Comments Seborrheic Keratosis Encounter Details Date Type Department Care Team Description 06/17/2011 Office Visit Dermatology Ashok Xiong, Inflamed seborrheic [address] keratosis (Primary [address] Dx) [place], [place] DERMATOLOGY [address] [place] [address] [phone] (Wo rk) Social History Tobacco Use Types Packs/Day Years Used Date Former Smoker Alcohol Use Standard Drinks/Week Comments Not Asked 0 (1 standard drink = 0.6 oz pure alcoho l) Sex Assigned at Date Recorded Not on file documented as of this encounter Progress Notes Ashok Xiong MD - 06/17/2011 3:09 PM EDT Problems: 1. Irritated seborrheic keratoses. 2. History of actinic keratoses treated with 5-FU at the [facility]. Parveen follows up and there is a single seborrheic keratosis that is inflamed and irritated that did not respond to the March visit treatment. He wonders whether I can take care of it today. Physical examination reveals a 1cm inflamed seborrheic keratosis on the right mid back. Otherwise while he has numerous small seborrheic keratoses on the chest and back these are flat, not inflamed and only 4-6mm in diameter. Assessment & Plan: Irritated seborrheic keratosis, right mid back. a. After obtaining patient consent, the site was anesthetized and removed with electrodesiccation. b. Triple antibiotic ointment and Band-Aid placed. c. Wound care instructions and supplies given. d. RTC p.r.n. documented in this encounter Plan of Treatment Upcoming Encounters Date Type Specialty Care Team Description 10/02/2022 Office Visit Dermatology Ashok Xiong MD [address] [facility] DERMATOLOGY [place], [place] [address] (Wo rk) documented as of this encounter Visit Diagnoses Diagnosis Inflamed seborrheic keratosis - Primary documented in this encounter Care Teams Medical Language Specialist Relationship Specialty Start Date End Date Jarvis Franks MD PCP - General 09/23/10 02/27/13 [facility] HEMATOLOGY/[place] [address] documented as of this encounter
--- OUTSIDE RECORDS SUMMARY | 2022-07-17 12:40 | XMS_ITS | Encounter Summary ---
:1940 Author Organization [facility] [address] Care Team Providers Name Role Phone Miquel Franco MD Primary Care Provider Reason for Visit Reason Comments Skin Check Encounter Details Date Type Department Care Team Description 04/10/2013 Office Visit Dermatology Ashok Xiong, Inflamed seborrheic [address] keratosis (Primary [address] [facility] [address] Dx) [place], [place] DERMATOLOGY [address] [place] [address] [phone] (Wo rk) Social History Tobacco Use Types Packs/Day Years Used Date Former Smoker Alcohol Use Standard Drinks/Week Comments No 0 (1 standard drink = 0.6 oz pure alcoho l) Sex Assigned at Date Recorded Not on file documented as of this encounter Progress Notes Ashok Xiong MD - 04/10/2013 3:46 PM EDT Problems: 1. Irritated seborrheic keratoses. 2. History of actinic keratoses treated with 5-FU at the [facility]. Parveen follows up and he has several irritated seborrheic keratoses he would like to have removed today. I last saw him in June 2011. Parveen has been enjoying riding his Mark media this summer. Physical examination reveals some irritated seborrheic keratoses on the back and the underarms. Assessment and Plan: Irritated seborrheic keratoses. a. After obtaining informed patient consent, the sites were treated with LN2 times two. b. Patient tolerated well. c. Return to the clinic p.r.n. for new lesions/concerns. documented in this encounter Plan of Treatment Upcoming Encounters Date Type Specialty Care Team Description 10/02/2022 Office Visit Dermatology Ashok Xiong MD [address] [facility] DERMATOLOGY [place], [place] [address] (Wo rk) documented as of this encounter Visit Diagnoses Diagnosis Inflamed seborrheic keratosis - Primary documented in this encounter Care Teams Car Rental Sales Assistant Relationship Specialty Start Date End Date Miquel Franco MD PCP - General 02/28/13 02/18/14 documented as of this encounter
--- OUTSIDE RECORDS SUMMARY | 2022-07-17 12:40 | XMS_ITS | Encounter Summary ---
:1940 Author Organization [facility] [place] [address] Care Team Providers Name Role Phone Luis Alfredo Myers MD Primary Care Provider Reason for Visit Reason Comments Lung Cancer Encounter Details Date Type Department Care Team Description 10/08/2015 Office Visit [facility] Dell Mccauley, Malignant neoplasm of [address] lower lobe of right [address] [place] lung [address] [place], [place] [phone] (Wo rk) Social History Tobacco Use Types Packs/Day Years Used Date Former Smoker Cigarettes 30 Quit: 10/01/19 80 Alcohol Use Standard Drinks/Week Comments No 0 (1 standard drink = 0.6 oz pure alcoho l) Sex Assigned at Date Recorded Not on file documented as of this encounter Last Filed Vital Signs Vital Sign Reading Time Taken Comments Blood Pressure 113/72 10/08/2015 10:34 AM EST Pulse 83 10/08/2015 10:34 AM EST Temperature 36.8 ??C (98.2 ??F) 10/08/2015 10:34 AM EST Respiratory Rate 16 10/08/2015 10:34 AM EST Oxygen Saturation 100% 10/08/2015 10:34 AM EST Inhaled Oxygen Concentration - - Weight 70.9 kg (156 lb 5.6 oz) 10/08/2015 10:34 AM EST Height - - Body Mass Index 24.54 10/01/2015 2:54 PM EST documented in this encounter Progress Notes Dell Mccauley MD - 10/08/2015 10:36 AM EST Diagnosis 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 He has gotten the results of his genomic testing and unfortunately it does show he has a KRAS positive tumor and is negative for ALK and EGFR. In this regard, he would not be considered to be likely to respond to an EGFR inhibitor. He understands the significance of that but we did go over it again today. We discussed chemotherapy again in detail and he is ready to begin treatment with carboplatin and Alimta and had no further questions on the regimen. We talked about the possibility of maintenance therapy if he has a good response and also discussed second line therapy with drugs such as nivolumab and other doublet chemotherapies. At age 75, he is physically quite fit and in fact tells me that he was able to go on the treadmill for 2.5 miles in 40 minutes a couple of days ago. He continues though to have a poor appetite and each week watches his weight go down a little although it has been stable this past week. Review of systems is otherwise negative except for some cough but no real shortness of breath or dyspnea on exertion. He remains on Lovenox. He is not having any leg symptoms. He still is on 80 mg twice a day and I suggested he might discuss taking 120 mg once a day which is considered equivalent since he is going to be on this lifelong. He will discuss that with his [place] doctor. Current Outpatient Prescriptions on File Prior to [...] Neurological: Negative. Hematological: Negative for adenopathy. BP 140/82 mmHg Pulse 83 Temp(Src) 36.8 ??C (98.2 ??F) Resp 16 Wt 77.792 kg (171 lb 8 oz) SpO2 97% Head: Normocephalic, without obvious abnormality, atraumatic Eyes: [...] normal Neurologic: Normal Laboratory is reviewed. White blood cell count is 6.2, hemoglobin 15.4, hematocrit 43.8, and platelet count is 172. CMP shows a normal creatinine at 0.8, normal liver tests with a total bili of 0.4 and an ALP of 55. His albumin is 4.8, calcium normal at 9.5. Electrolytes are unremarkable. Assessment/Plan: Parveen is ready to start his first chemotherapy with carboplatin and Alimta. He will take the folic acid 1 mg daily and we will be giving him B12 with every third cycle. He has an antiemetic on hand at home and we will be giving him both Aloxi and Emend with his treatment today. He will watch out for constipation symptoms and will call if there are any issues or problems. Since this is his first cycle of chemotherapy with this regimen, I would like to see him next week to see how he tolerated things. The next cycle is planned in three weeks and we plan on restaging him after three months of treatment, which turns out to be four cycles, providing he is symptomatically improving. He is fine with that plan. documented in this encounter Plan of Treatment Upcoming Encounters Date Type Specialty Care Team Description 10/02/2022 Office Visit Dermatology Ashok Xiong MD [address] [place] [address] DERMATOLOGY [place], [place] [address] (Wo rk) documented as of this encounter Procedures Procedure Name Priority Date/Time Associated Diagnosis Comme nts CHEMOTHERAPY SCAN 10/08/2015 12:00 AM EST documented in this encounter Results SCAN DOC: CHEMOTHERAPY (10/08/2015 12:00 AM EST) Narrative This result has an attachment that is no t available. Scanning Provider MEDIA MGR SCAN EXT ORDR/RSLT documented in this encounter Visit Diagnoses Diagnosis Malignant neoplasm of lower lobe of righ t lung documented in this encounter Care Teams Machine Bobbin Winder Relationship Specialty Start Date End Date Luis Alfredo Myers MD PCP - General 02/19/14 10/20/[address] [place] [id number] documented as of this encounter
--- OUTSIDE RECORDS SUMMARY | 2022-07-17 12:40 | XMS_ITS | Encounter Summary ---
:1940 Author Organization [facility] [place] [address] Care Team Providers Name Role Phone Jarvis Franks MD Primary Care Provider Reason for Visit Reason Comments Seborrheic Keratosis Encounter Details Date Type Department Care Team Description 03/03/2011 Office Visit Dermatology Ashok Xiong, Seborrheic keratosis [address] [facility] (Primary Dx) [address] [place], [place] DERMATOLOGY [address] [place] [address] [phone] (Wo rk) Social History Tobacco Use Types Packs/Day Years Used Date Never Assessed Sex Assigned at Date Recorded Not on file documented as of this encounter Progress Notes Ashok Xiong MD - 03/03/2011 4:26 PM EDT Problems: 1. Skin check. 2. History of actinic keratoses treated with 5-FU at the [facility]. 3. Bothersome seborrheic keratoses. Parveen follows up and has some irritated seborrheic keratoses that he would like to have treated. He just recently got back from his winter quarters in [place] where he bought a 1982 inline 4-cylinder John 650. He also has a Verde and a 2000 Bandar. He helped Roberto move the [facility] to [place]. Physical examination reveals a pleasant 70-year-old gentleman who has a benign examination of the head, neck, chest, back, hands and arms. There is no evidence of any malignant lesions. He has a number of irritated seborrheic keratoses on the torso, arms and left upper forehead. Assessment & Plan: Benign skin examination. a. Patient reassured about benign skin examination. Irritated seborrheic keratoses. a. After obtaining patient consent, the sites were treated with LN2. b. RTC p.r.n. for new lesions/concerns documented in this encounter Plan of Treatment Upcoming Encounters Date Type Specialty Care Team Description 10/02/2022 Office Visit Dermatology Ashok Xiong MD [address] [facility] DERMATOLOGY [place], [place] [address] (Wo rk) documented as of this encounter Procedures Procedure Name Priority Date/Time Associated Diagnosis Comme nts LAB SCAN 09/09/2016 12:00 AM Results for this EST procedure are i n the results section . LAB SCAN 05/19/2016 12:00 AM EDT LAB SCAN 05/19/2016 12:00 AM EDT documented in this encounter Results SCAN DOC: LAB (09/09/2016 12:00 AM EST) Narrative This result has an attachment that is no t available. Scanning Provider MEDIA MGR SCAN EXT ORDR/RSLT SCAN DOC: LAB (05/19/2016 12:00 AM EDT) Narrative This result has an attachment that is no t available. Scanning Provider MEDIA MGR SCAN EXT ORDR/RSLT SCAN DOC: LAB (05/19/2016 12:00 AM EDT) Narrative This result has an attachment that is no t available. Scanning Provider MEDIA MGR SCAN EXT ORDR/RSLT documented in this encounter Visit Diagnoses Diagnosis Seborrheic keratosis - Primary Other seborrheic keratosis documented in this encounter Care Teams Seed And Fertilizer Specialist Relationship Specialty Start Date End Date Jarvis Franks MD PCP - General 09/23/10 02/27/13 [facility] HEMATOLOGY/[place] [address] documented as of this encounter
--- OUTSIDE RECORDS SUMMARY | 2022-07-17 12:40 | XMS_ITS | Encounter Summary ---
:1940 Author Organization [facility] Address [facility] [place] [address] Care Team Providers Name Role Phone Miquel Franco MD Primary Care Provider Reason for Visit Reason Comments Procedure lucentis OS for mac edema/CR VO Encounter Details Date Type Department Care Team Description 02/28/2013 Procedure visit Ophthalmology at [facility] occlusion of left eye (Primary Dx); [facility] Luis Alfredo Coe MD Macular pucker of both eyes; [facility] Nuc lear sclerosis; Drive DR Retinoschisis of left eye; [place], [place] OPHTHALMOLOGY Seborrheic ker atosis; [phone] DEPT. Transient Ischemia [phone] [place], [place] [address] Social History Tobacco Use Types Packs/Day Years Used Date Former Smoker Alcohol Use Standard Drinks/Week Comments No 0 (1 standard drink = 0.6 oz pure alcoho l) Sex Assigned at Date Recorded Not on file documented as of this encounter Progress Notes Luis Alfredo Mackey MD - 02/28/2013 2:24 PM EDT 4 weeks OCT. Possible Lucentis documented in this encounter Miscellaneous Notes Addendum Note - Trinity Roche PA - 02/28/2013 3:10 PM EDT Addended by: TRINITY ROCHE on: 02/28/2013 03:10 PM Modules accepted: Orders documented in this encounter Plan of Treatment Upcoming Encounters Date Type Specialty Care Team Description 10/02/2022 Office Visit Dermatology Ashok Xiong MD [address] [facility] DERMATOLOGY [place], [place] [address] (Wo rk) documented as of this encounter Procedures Procedure Name Priority Date/Time Associated Comments Diagnosis INTRAVITREAL INJECTION Routine 02/28/2013 2:26 PM Branch retin al vein Results for this PHARMACOLOGIC AGENT - EDT occlusion of left p rocedure are in OS - LEFT EYE eye the results section. documented in this encounter Results Intravitreal Injection of Pharmacologic Agent - OS - LEFT EYE (02/28/2013 2:26 PM EDT) Anatomical Region Laterality Modality Other Specimen (Source) Anatomical Location Collection Method / Collectio n Time Received Time / Laterality Volume Narrative 02/28/2013 2:26 PM EDT OPERATIVE REPORT PREOPERATIVE DIAGNOSIS ??: ?? 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 Os POSTOPERATIVE DIAGNOSIS: ?Branch vei n occlusion with macular edema..... ?? Os SURGEON: LUIS ALFREDO MACKEY M.D. ANESTHESIA: TOPICAL LIDOCAINE 4% OPERATIVE INDICATIONS: branch vein occlu bernadine with macular edema and WITH REDUCED VISION AND EXUDATIVE CHANGES OPERATION PERFORMED: INTRAVITREAL INJECT ION WITH LUCENTIS (RANIBIZUMAB) ?? 0.5 MG MILLIGRAMS............Os. OPERATIVE TECHNIQUE: INFORMED CONSENT WA SECURED AFTER CAREFU L AND COMPLETE REVIEW OF ALL COMPLICATIONS AND RISKS WELL THE B ENEFITS,INDICATIONS AND ALTERNATIVES INCLUDING OBSERVATION,AVAST IN AND LASER. RISKS AND COMPLICATIONS REVIEWED INCLUDED BUT ??WE RE NOT LIMITED TO THE FOLLOWING: ?? ,STROKE,BLEEDING AND CARDIOVASCULAR COMPLICATIONS WELL ENDOPHTHALMITIS,GLAUCOMA,RETINAL DETACHM ENT AND ANY OTHER RARE OR UNFORESEEN COMPLICATIONS STRICT STERILE TECHNIQUE WAS ACCOMPLISHE D DURING EVERY STEP OF THE SURGICAL PROCEDURE. TOPICAL LIDOCAINE 4% PROVIDE EXCELLENT ANESTHESIA. CILOXAN AND BETADINE OPHTHALMIC SOLUTION WERE USED TO INSURE ANTISEPSIS WITH AN APPROPRIATE TIME OF CONTACT APPL ICATION TO THE CONJUNCTIVA,GLOBE AND ADNEXAE. A STERILE DRAPE AND STERILE EYELID SPECU LUM WERE PLACED AFTER SURGICAL SITE RE-VERIFICATION. STERILE AVASTIN PREPARED BY THE [facility] PHARM[facility] WAS CONFIRMED THE PROPERLY ORDERED MEDICA TION IN THE CORRECT DOSE AND FORMULATION FOR THIS PATIENT. .USING A 30 GAUGE NEEDLE, LUCENTIS IN A DOSE OF 0.5mg WAS INJECTED INTO THE...Os ?? VIA THE PARS PLANA AT A DIST ANCE 3.5 mm POSTERIOR TO THE SURGICAL LIMBUS. VISION,EYE PRESSURE AND PERFUSION WERE C ONFIRMED AND MAINTAINED. THE OPERATED EYE WAS PATCHED WITH CILOXA N OINTMENT. THE PATIENT WAS DISCHARGED HOME ALERT AND ORIENTED TO [facility] CARE [facility] FAMILY WITH APPROPRIATE SAFETY CONSIDERATIONS. DISCHARGE INSRTUC TIONS WERE REVIEWED AND PATIENT QUESTIONS ADDRESSED WITH THE PATIENT. PO ST OPERATIVE INSTRUCTIONS WERE REVIEWED AND PRINTED INSTRUCTIONS WERE P ROVIDED TO THE PATIENT THE PATIENT WAS INSTRUCTED CALL IMMEDIAT EMILEE FOR SEVERE PAIN,REDUCED VSION,CARDIAC,NEUROLOGICAL SYMTOMS (REVI EWED) OR OTHER SYMPTOMS OF CONCERN. A FOOLOW-UP APPOINTMENT WAS KARLOS EFRA Procedure Note Luis Alfredo Mackey MD - 02/28/2013F ormatting of this note might be different from the original. OPERATIVE REPORT PREOPERATIVE DIAGNOSIS : Branch vein occ lusion with macular edema ..... Os POSTOPERATIVE DIAGNOSIS: Branch vein occ lusion with macular edema..... Os SURGEON: LUIS ALFREDO MACKEY M.D. ANESTHESIA: TOPICAL LIDOCAINE 4% OPERATIVE INDICATIONS: branch vein occlu bernadine with macular edema and WITH REDUCED VISION AND EXUDATIVE CHANGES OPERATION PERFORMED: INTRAVITREAL INJECT ION WITH LUCENTIS (RANIBIZUMAB) 0.5 MG MILLIGRAMS............Os. OPERATIVE TECHNIQUE: INFORMED CONSENT WA SECURED AFTER CAREFU L AND COMPLETE REVIEW OF ALL COMPLICATIONS AND RISKS WELL THE BENEFITS,INDICATIONS AND ALTERNATIVES INCLUDING OBSERVATION,AVASTIN AND LASER. RISKS AND COMPLICATIONS REVIEWED INCLUDED BUT WERE NOT LIMITED TO THE FOLLOWING: ,STROKE,BLEEDING AND CARDIOVASCULAR COMPLICATIONS WELL ENDOPHTHALMITIS,GLAUCOMA,RETINAL DETACHMENT AND ANY OTHER RARE OR UNFORESEEN COMPLICATIONS STRICT STERILE TECHNIQUE WAS ACCOMPLISHE D DURING EVERY STEP OF THE SURGICAL PROCEDURE. TOPICAL LIDOCAINE 4% PROVIDE EXCELLENT ANESTHESIA. CILOXAN AND BETADINE OPHTHALMIC SOLUTION WERE USED TO INSURE ANTISEPSIS WITH AN APPROPRIATE TIME OF CONTACT APPL ICATION TO THE CONJUNCTIVA,GLOBE AND ADNEXAE. A STERILE DRAPE AND STERILE EYELID SPECU LUM WERE PLACED AFTER SURGICAL SITE RE- VERIFICATION. STERILE AVASTIN PREPARED BY THE [facility] PH[facility] WAS CONFIRMED THE PROPERLY ORDERED MEDICATION IN THE CORRECT DOSE AND FORMULATION FOR THIS PATIENT. .USING A 30 GAUGE NEEDLE, LUCENTIS IN A DOSE OF 0.5mg WAS INJECTED INTO THE...Os VIA THE PARS PLANA AT A DISTANCE 3.5 mm POSTERIOR TO THE SURGICAL LIMBUS. VISION,EYE PRESSURE AND PERFUSION WERE C ONFIRMED AND MAINTAINED. THE OPERATED EYE WAS PATCHED WITH CILOXA N OINTMENT. THE PATIENT WAS DISCHARGED HOME ALERT AND ORIENTED TO THE CARE OF FAMILY WITH APPROPRIATE SAFETY CONSIDERATIONS. DISCHARGE INSRTUCTIONS WERE REVIEWED AND PATIENT QUESTIONS ADDRESSED WITH THE PATIENT. PO ST OPERATIVE INSTRUCTIONS WERE REVIEWED AND PRINTED INSTRUCTIONS WERE PROVIDED TO THE PATIENT THE PATIENT WAS INSTRUCTED CALL IMMEDIAT EMILEE FOR SEVERE PAIN,REDUCED VSION,CARDIAC,NEUROLOGICAL SYMTOMS (REVIEWED) OR OTHER SYMPTOMS OF CONCERN. 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 Retinoschisis, unspecified Seborrheic keratosis Other seborrheic keratosis Transient ischemia Unspecified transient cerebral ischemia documented in this encounter Administered Medications Inactive Administered Medications - up to 3 most recent administrations Medication Order MAR Action Action Date Dose Rate Site ranibizumab (LUCENTIS) Given 02/28/2013 3:30 PM EDT 0.3 mg Left Eye ophthalmic solution 0.3 mg 0.3 mg, Intravitreal, ONCE, 1 dose, On Wed02/28/13 at 1530, Routine documented in this encounter Care Teams Airplane Cover Maker Relationship Specialty Start Date End Date Miquel Franco MD PCP - General 02/28/13 02/18/14 documented as of this encounter
--- OUTSIDE RECORDS SUMMARY | 2022-07-17 12:40 | XMS_ITS | Encounter Summary ---
:1940 Author Organization [place] [address] Care Team Providers Name Role Phone Luis Alfredo Myers MD Primary Care Provider Reason for Visit Reason Comments Skin Check Encounter Details Date Type Department Care Team Description 02/19/2014 [facility] ebtyra Murray MD keratosis (Primary [address] Dx) [facility] B DERMATOLOGY [place], [place] [id number] [phone] Social History Tobacco Use Types Packs/Day Years Used Date Former Smoker Alcohol Use Standard Drinks/Week Comments No 0 (1 standard drink = 0.6 oz pure alcoho l) Sex Assigned at Date Recorded Not on file documented as of this encounter Patient Instructions Patient InstructionsMahsa Del Angel LPN - 02/19/2014 9:33 AM EDT Images from the original note were not included. [facility] Seborrheic Keratosis: After Your Visit Your Care Instructions Seborrheic keratoses are raised skin growths that look scaly or warty. They usually look like they were stuck onto the skin. They most often grow in groups on the back or chest and are more common in older people. A seborrheic keratosis can be abreu or dark brown. A seborrheic keratosis is not a mole and never turns into cancer. But it is still a good idea to check your skin regularly. Sometimes a seborrheic keratosis can itch. Scratching it can cause it to bleed and sometimes even scar. A seborrheic keratosis is removed only if it bothers you. The doctor will freeze it or scrape it offwith a tool. The doctor can also use a laser to remove a seborrheic keratosis. Treatment usually results in normal-looking skin, but it can leave a light or dark ashley or even a scar on the skin. Follow-up care is a cox part of your treatment and safety. Be sure to make and go to all appointments, and call your doctor if you are having problems. It's also a good idea to know your test results and keep a list of the medicines you take. How can you care for yourself at home? ?? If clothing irritates your seborrheic keratosis, cover it with a bandage to prevent rubbing and bleeding. ?? If you have a seborrheic keratosis removed, clean the area with soap and water two times a day unless your doctor gives you different instructions. Don't use hydrogen peroxide or alcohol, which can slow healing. ?? You may cover the wound with a thin layer of petroleum jelly, such as Vaseline, and a nonstick bandage. ?? Check all the skin on your body once a month for skin growths or other changes, such as color andfeel of the skin. ?? dining services manager front of a full-length mirror. Look carefully at the front and back of your body. Then look at your right and left sides with your arms raised. ?? Bend your elbows and look carefully at your forearms, the back of your upper arms, and your palms. ?? Look at your feet, the soles of your feet, and the spaces between your toes. ?? Use a hand mirror to look at the back of your legs, the back of your neck, and your back, rear end (buttocks), and genital area. Part the hair on your head to look at your scalp. ?? If you see a change in a skin growth, contact your doctor. Look for: ?? A mole that bleeds. ?? A fast-growing mole. ?? A scaly or crusted growth on the skin. ?? A sore that will not heal. When should you call for help? Call your doctor now or seek immediate medical care if: ?? You have an area of normal skin that suddenly changes in shape, size, or how it looks. ?? Your skin is badly broken from scratching. ?? You have signs of infection such as: ?? Pain, warmth, or swelling in your skin. ?? Red streaks near a wound in your skin. ?? Pus coming from a wound in your skin. ?? A fever not due to the flu or other illness. Watch closely for changes in your health, and be sure to contact your doctor if: ?? You do not get better as expected. Where can you learn more? Visit our health information library at [email or web address] You can also view health information on [employer], your personal patient account. Log in or sign up today. Enter Z945 in the search box to learn more about Seborrheic Keratosis: After Your Visit. ?? [id number] [employer]. Care instructions adapted under license by [facility]. This care instruction is for use with your licensed healthcare professional. If you have questionsabout a medical condition or this instruction, always ask your healthcare professional. [employer] disclaims any warranty or liability for your use of this information. Content Version: [id number]; Last Revised: December 13, 2012 documented in this encounter Progress Notes Ashok Xiong MD - 02/19/2014 9:22 AM EDT Problem: 1. Irritated seborrheic keratoses. 2. History of actinic keratoses, treated with 5-FU at the [facility]. Parveen follows up and has several irritated seborrheic keratoses today. I last saw him in April of 2013. He has recently just returned to the [facility] from [place]. 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 Physical examination reveals some irritated seborrheic keratoses on the back, underarms, and chest. Assessment and Plan: Irritated seborrheic keratoses. a. Patient reassured. b. No treatment necessary. c. Return to clinic here p.r.n. for new lesions/concerns. The remainder of the sun exposed skin examination is benign. documented in this encounter Plan of Treatment Upcoming Encounters Date Type Specialty Care Team Description 10/02/2022 Office Visit Dermatology Ashok Xiong MD [address] [facility] DERMATOLOGY [place], [place] [address] (Wo rk) documented as of this encounter Visit Diagnoses Diagnosis Other seborrheic keratosis - Primary documented in this encounter Care Teams Patient Accounting Representative Relationship Specialty Start Date End Date Luis Alfredo Myers MD PCP - General 02/19/14 10/20/15 [address] [place] [address] documented as of this encounter
--- OUTSIDE RECORDS SUMMARY | 2022-07-17 12:45 | XMS_ITS | Encounter Summary ---
:1940 Demographics Home Phone Preferred Language Unknown Marital Status Unknown Caodaism Affiliation Unknown Race Unknown Ethnic Group Unknown Author Organization [facility] Address [address] [place] [address] Care Team Providers Name Role Phone Unavailable Primary Care Provider Unavailable Encounter Details Date Type Department Care Team Description 06/30/2021 Lab Requisition [facility] Outr Resulting Lab, Pathology & Laboratory Provider [facility] [address] [place] [address] Social History Tobacco Use Types Packs/Day Years Used Date Never Assessed Sex Assigned at Date Recorded Not on file documented as of this encounter Plan of Treatment Not on filedocumented as of this encounter Procedures Procedure Name Priority Date/Time Associated Diagnosis Comme nts COVID[facility] Today 06/30/2021 12:34 LAB PCR EDT COVID-19 TESTING Routine 06/30/2021 12:34 Results for this EDT procedure are i n the results section. documented in this encounter Results COVID-19 TEST [facility] LAB PCR (06/30/2021 12:34 EDT) Specimen Swab - Entire nasopharynx (body structur e) Performing Organization Address City/State/ZIP Code Phon e Number [facility] [address] [place] [address] SERVICES COVID-19 TESTING (06/30/2021 12:34 EDT) COVID-19 rt-PCR Negative Negative [facility] Result Comment: CENTER LABORATORY This test has not been FDA c leared or approved. This test has been authorized by FDA under an EUA for use by authorized laboratories. This test has been authorized only for detection of nucleic acid fro SERVICES m 2019-nCoV, not for any oth er viruses or pathogens. This test is only authorized for the duration of the declaration that circumstances exist justifying the authorization of emergency use of in vitro d iagnostic tests for detectio n and/or diagnosis of 2019-nCoV under section 564(b)(1) of Act, 21 U.S.C ?? 360bbb-3(b) (1), unless the authorization is terminated or revoked sooner. Negative results do not prec lude 2019-nCoV infection and should not be used as the sole basis for treatment or other patient management decisions. Negative results must be combined with clinical observa tions, patient history, and epidemiological informatio n. Performed on the [employer] Fusion instrument Performing Lab [place] [facility] Lab [facility] SERVICES Specimen Swab Performing Organization Address City/State/ZIP Code Phon e Number [facility] [address] [place] [address] SERVICES documented in this encounter Visit Diagnoses Not on filedocumented in this encounter
--- OUTSIDE RECORDS SUMMARY | 2022-07-17 12:45 | XMS_ITS ---
:1940 Author Organization [facility] Address [address] [place] [address] Care Team Providers Name Role Phone Lab or DI, Non [facility] Unavailable Unavailable PROBLEMS Unknown Problems ALLERGIES No Known Allergies ENCOUNTERS [place] [address] Aug, IMMUNIZATIONS No Known Immunizations SOCIAL HISTORY Never Assessed REASON FOR REFERRAL FUNCTIONAL STATUS PLAN OF CARE VITAL SIGNS MEDICATIONS Unknown Medications PROCEDURES No Known procedures RESULTS Name Result Date Reference Range CBC WITH AUTO DIFF 2020-08-26 WBC 4.9 4.0-12.0 RBC 5.0 4.5-6.0 HGB 14.0 13.5-18.0 HCT 45.1 42.0-52.0 MCV 91 78-100 MCH 28.3 27.0-32.0 MCHC 31.0 32.0-36.0 RDW 14.0 11.0-14.0 PLT 175 140-440 MPV 10.1 7.4-11.0 ANC# 3.3 1.4-7.9 IG# 0.01 0.00-0.10 LY# 0.55 1.50-4.00 MO# 0.59 0.20-0.80 EO# 0.38 0.00-0.70 BA# 0.04 0.00-0.20 NE% 67.7 IG% 0.2 0.0-1.0 LY% 11.3 MO% 12.2 EO% 7.8 BA% 0.8 COMPMET 2020-08-26 GLUC 96 74-106 BUN 28 7-25 CREATS 1.19 0.70-1.30 EGFR 59 >=60 NA 141 136-144 K+ 4.4 3.5-5.1 CL 105 98-110 CO2 28 22-32 CA 9.1 8.6-10.3 TP 6.7 6.0-8.3 ALB 4.0 3.4-5.0 TBIL 0.6 0.3-1.2 DBIL 0.1 0.0-0.2 ALKP 152 34-104 AST 17 13-39 ALT 13 7-52 T4 FREE 2020-08-26 T4F 0.74 0.61-1.12 TSH 2020-08-26 TSH 6.289 0.450-5.330 CT Chest w + w/o ([id number]) 2020-08-26 See Below For Report REASON FOR VISIT labs Insurance Providers [facility] Member Patient Patient Patient Patient Patient Subscriber Subscriber Subscriber Group Insurance Plan Plan Plan Plan ID Relationship Address Phone Name Date of ID Name Date of No Type Insurance Insurance Insurance Coverage to Subscriber Address Phone Name Dates MEDICARE [address] MEDICARE self KAYODE [id number] [facility] [id number] SELF PAY [address] STRE[address] SELF PAY self KAYODE [id number] AFTER BLUE [place] AFTER BLUE [facility] [address] [place] S-BLUE [phone] S-BLUE self KAYODE [id number] [place] [id number] [address] [facility] [id number]
--- OUTSIDE RECORDS SUMMARY | 2022-07-17 12:45 | XMS_ITS | Clinical Summary ---
:1940 Demographics Home Phone Preferred Language Unknown Marital Status Unknown Sikhism Affiliation Unknown Race Unknown Ethnic Group Unknown Author Organization [facility] Address [address] [place] [address] Care Team Providers Name Role Phone Unavailable Primary Care Provider Unavailable Social History Tobacco Use Types Packs/Day Years Used Date Never Assessed Sex Assigned at Date Recorded Not on file Plan of Treatment Health Maintenance Due Date Last Done Comments Hepatitis C Screen 1940 COVID-19 Vaccine (1) 1947 Fall Risk Screening 2007
--- OUTSIDE RECORDS SUMMARY | 2022-07-17 12:45 | XMS_ITS | Encounter Summary ---
:1940 Demographics Home Phone Preferred Language Unknown Marital Status Unknown Gnosticism Affiliation Unknown Race Unknown Ethnic Group Unknown Author Organization [facility] Address [address] [place] [address] Care Team Providers Name Role Phone Unavailable Primary Care Provider Unavailable Encounter Details Date Type Department Care Team Description 07/16/2020 Lab Requisition [facility] Outr Resulting Lab, Pathology & Laboratory Provider [facility] [address] [place], [place] [id number] Social History Tobacco Use Types Packs/Day Years Used Date Never Assessed Sex Assigned at Date Recorded Not on file documented as of this encounter Plan of Treatment Not on filedocumented as of this encounter Procedures Procedure Name Priority Date/Time Associated Comments Diagnosis DO NOT ORDER Today 07/16/2020 10:20 Results for this STANDALONE - BROAD EDT procedure are in COVID TEST the results section. COVID-19 TESTING Routine 07/16/2020 10:20 Results for this EDT procedure are i n the results section. documented in this encounter Results DO NOT ORDER STANDALONE - BROAD COVID TEST (07/16/2020 10:20 EDT) COVID-19 rt-PCR NEGATIVE Negative [facility] Result Comment: LABORATORY 2019-novel Coronavirus (2019 -nCoV) not detected by the qRT-PCR assay. Consider testing for other respiratory viruses or re-collecting for 2019-nCoV testing. Note: Optimum timing for peak viral levels du ring infections caused by 20 -nCoV have not been determined. Collection of multiple specimens from the same patient may be necessary to detect the virus. Limitations Positive results are indicat nancy of active infection with SARS-CoV-2 but do not rule out bacterial infection or co-infection with other viruses. The agent detected may not be the definite cause of diseas e. In addition, detection of viral RNA may not indicate the presence of infectious virus or that SARS-CoV-2 is the causative agent for clinical symptoms. Negative results do not prec lude SARS-CoV-2 infection and should not be used as the sole basis for patient management decisions. Negative results must be combined with clinical observations, patient his tory, and epidemiological in formation. False negative results may also occur if amplification inhibitors are present in the specimen or if inadequate numbers of organisms are present in the specimen. Op timum specimen types and awilda ing for peak viral levels during infections caused by SARS-CoV-2 have not been fully determined. Collection of multiple specimens (types and time points) from the same patient may be necessary to detect the virus. The test was validated for u with upper respiratory specimens obtained via nasopharyngeal or oropharyngeal swabs in VTM, UTM, M4, M5, M6, saline, and MTM media. The performance of this test has not be en established for other spe cimens. Specimens collected using other FDA recommended Specimen Collection Materials listed in the FDA COVID-19 Diagnostic Technologies communication (January 25, 2020) are pr ocessed with the caveat that they were not all validated for use with this test and the result must be interpreted in this context. Furthermore, a false negative results may occur if a specimen is improperly collected, transported or handled. If the virus mutates in the RT-PCR target region, SARS-CoV-2 may not be detected or may be detected less predictably. Inhibitors or other types of interference may produce a false negative result. An interference study evaluating the effect of common cold medications was not performed. This test is not FDA-cleared but its performance characteristics were established by our CLIA-certified, CAP-accredited, high complexity laboratory in accordance with CLIA regulations, College of [employer] an Pathologists (CAP) guidel zheng (Jan 18, 2020), and FDA guidance (Dec 30, 2019). This test is only for use un kandace the Food and Drug Administration's Emergency Use Authorization. Specimen Swab - Entire nasopharynx (body structur e) Performing Organization Address City/State/ZIP Code Phon e Number [facility] [place], [place] COVID-19 TESTING (07/16/2020 10:20 EDT) COVID-19 rt-PCR NEGATIVE Negative [facility] Result Comment: LABORATORY 2019-novel Coronavirus (2019 -nCoV) not detected by the qRT-PCR assay. Consider testing for other respiratory viruses or re-collecting for 2019-nCoV testing. Note: Optimum timing for peak viral levels du ring infections caused by 20 19-nCoV have not been determined. Collection of multiple specimens from the same patient may be necessary to detect the virus. Limitations Positive results are indicat nancy of active infection with SARS-CoV-2 but do not rule out bacterial infection or co-infection with other viruses. The agent detected may not be the definite cause of diseas e. In addition, detection of viral RNA may not indicate the presence of infectious virus or that SARS-CoV-2 is the causative agent for clinical symptoms. Negative results do not prec lude SARS-CoV-2 infection and should not be used as the sole basis for patient management decisions. Negative results must be combined with clinical observations, patient his tory, and epidemiological in formation. False negative results may also occur if amplification inhibitors are present in the specimen or if inadequate numbers of organisms are present in the specimen. Op timum specimen types and awilda ing for peak viral levels during infections caused by SARS-CoV-2 have not been fully determined. Collection of multiple specimens (types and time points) from the same patient may be necessary to detect the virus. The test was validated for u se with upper respiratory specimens obtained via nasopharyngeal or oropharyngeal swabs in VTM, UTM, M4, M5, M6, saline, and MTM media. The performance of this test has not be en established for other spe cimens. Specimens collected using other FDA recommended Specimen Collection Materials listed in the FDA COVID-19 Diagnostic [employer] communication (January 25, 2020) are pr ocessed with the caveat that they were not all validated for use with this test and the result must be interpreted in this context. Furthermore, a false negative results may occur if a specimen is improperly collected, transported or handled. If the virus mutates in the RT-PCR target region, SARS-CoV-2 may not be detected or may be detected less predictably. Inhibitors or other types of interference may produce a false negative result. An interference study evaluating the effect of common cold medications was not performed. This test is not FDA-cleared but its performance characteristics were established by our CLIA-certified, CAP-accredited, high complexity laboratory in accordance with CLIA regulations, [employer] of [employer] an Pathologists (CAP) guidel zheng (Jan 18, 2020), and FDA guidance (Dec 30, 2019). This test is only for use un kandace the Food and Drug Administration's Emergency Use Authorization. Performing Lab [facility] LABORATORY SERVICES Specimen Swab Performing Organization Address City/State/ZIP Code Phon e Number [facility] [address] [place] [address] SERVICES [facility] [place], [place] documented in this encounter Visit Diagnoses Not on filedocumented in this encounter
== END 2022-07-13 12:27 | disposition home or self-care (01) ==
LOC: PUVA 07-17 12:26
PROVIDERS: PCP Family Medicine; Visit Provider Dermatology
DX: L29.8 Other pruritus (principal)
CPT/HCPCS: 96900

== ENCOUNTER 2022-07-27 09:01 | Outpatient (CLI) | payer MEDICARE, BC, SELFPAY | END 2022-07-27 09:02 | disposition home or self-care (01) | LOC: PUVA 09:01 | PROVIDERS: PCP Family Medicine; Visit Provider Dermatology | DX: L29.8 Other pruritus (principal) | CPT/HCPCS: 96900 ==

== ENCOUNTER 2022-08-10 08:57 | Outpatient (CLI) | payer MEDICARE, BC, SELFPAY | END 2022-08-10 08:58 | disposition home or self-care (01) | LOC: PUVA 08:57 | PROVIDERS: PCP Family Medicine; Visit Provider Dermatology | DX: L29.8 Other pruritus (principal) | CPT/HCPCS: 96900 ==

== ENCOUNTER 2022-08-24 10:14 | Outpatient (CLI) | payer MEDICARE, BC, SELFPAY | END 2022-08-24 10:15 | disposition home or self-care (01) | PROVIDERS: PCP Family Medicine; Visit Provider Dermatology | DX: L29.8 Other pruritus (principal) | CPT/HCPCS: 96900 ==

== ENCOUNTER 2022-09-07 08:53 | Outpatient (CLI) | payer MEDICARE, BC, SELFPAY | END 2022-09-07 08:54 | disposition home or self-care (01) | LOC: PUVA 08:53 | PROVIDERS: PCP Family Medicine; Visit Provider Dermatology | DX: L29.8 Other pruritus (principal) | CPT/HCPCS: 96900 ==

== ENCOUNTER 2022-09-21 08:41 | Outpatient (CLI) | payer MEDICARE, BC, SELFPAY | END 2022-09-21 08:42 | disposition home or self-care (01) | LOC: PUVA 08:41 | PROVIDERS: PCP Family Medicine; Visit Provider Dermatology | DX: L29.8 Other pruritus (principal) | CPT/HCPCS: 96900 ==

== ENCOUNTER 2022-10-05 08:03 | Outpatient (CLI) | payer MEDICARE, BC, SELFPAY | END 2022-10-05 08:04 | disposition home or self-care (01) | LOC: PUVA 08:03 | PROVIDERS: PCP Family Medicine; Visit Provider Dermatology | DX: L29.8 Other pruritus (principal) | CPT/HCPCS: 96900 ==

== ENCOUNTER 2022-10-19 07:58 | Outpatient (CLI) | payer MEDICARE, BC, SELFPAY | END 2022-10-19 07:59 | disposition home or self-care (01) | LOC: PUVA 07:58 | PROVIDERS: PCP Family Medicine; Visit Provider Dermatology | DX: L29.8 Other pruritus (principal) | CPT/HCPCS: 96900 ==

== ENCOUNTER 2022-11-03 09:05 | Outpatient (CLI) | payer MEDICARE, BC, SELFPAY | END 2022-11-03 09:06 | disposition home or self-care (01) | LOC: PUVA 09:05 | PROVIDERS: PCP Family Medicine; Visit Provider Dermatology | DX: L29.8 Other pruritus (principal) | CPT/HCPCS: 96900 ==

== ENCOUNTER 2022-11-16 07:42 | Outpatient (CLI) | payer MEDICARE, BC, SELFPAY | END 2022-11-16 07:43 | disposition home or self-care (01) | LOC: PUVA 07:42 | PROVIDERS: PCP Family Medicine; Visit Provider Dermatology | DX: L29.8 Other pruritus (principal) | CPT/HCPCS: 96900 ==

== ENCOUNTER 2022-11-30 09:03 | Outpatient (CLI) | payer MEDICARE, BC, SELFPAY | END 2022-11-30 09:04 | disposition home or self-care (01) | LOC: PUVA 09:03 | PROVIDERS: PCP Family Medicine; Visit Provider Dermatology | DX: L29.8 Other pruritus (principal) | CPT/HCPCS: 96900 ==

== ENCOUNTER 2022-12-14 09:03 | Outpatient (CLI) | payer MEDICARE, BC, SELFPAY | END 2022-12-14 09:04 | disposition home or self-care (01) | LOC: PUVA 09:03 | PROVIDERS: PCP Family Medicine; Visit Provider Dermatology | DX: L29.8 Other pruritus (principal) | CPT/HCPCS: 96900 ==

== ENCOUNTER 2022-12-28 08:54 | Outpatient (CLI) | payer MEDICARE, BC, SELFPAY | END 2022-12-28 08:55 | disposition home or self-care (01) | LOC: PUVA 08:58 | PROVIDERS: PCP Family Medicine; Visit Provider Dermatology | DX: L29.8 Other pruritus (principal) | CPT/HCPCS: 96900 ==

== ENCOUNTER 2023-01-11 07:50 | Outpatient (CLI) | payer MEDICARE, BC, SELFPAY | END 2023-01-11 07:51 | disposition home or self-care (01) | LOC: PUVA 07:50 | PROVIDERS: PCP Family Medicine; Visit Provider Dermatology | DX: L29.8 Other pruritus (principal) | CPT/HCPCS: 96900 ==

== ENCOUNTER 2023-01-25 08:58 | Outpatient (CLI) | payer MEDICARE, BC, SELFPAY | END 2023-01-25 08:59 | disposition home or self-care (01) | LOC: PUVA 08:58 | PROVIDERS: PCP Family Medicine; Visit Provider Dermatology | DX: L29.8 Other pruritus (principal) | CPT/HCPCS: 96900 ==

== ENCOUNTER 2023-02-09 08:10 | Outpatient (CLI) | payer MEDICARE, BC, SELFPAY | END 2023-02-09 08:11 | disposition home or self-care (01) | LOC: PUVA 08:11 | PROVIDERS: PCP Family Medicine; Visit Provider Dermatology | DX: L29.8 Other pruritus (principal); L40.9 Psoriasis, unspecified | CPT/HCPCS: 96900 ==

== ENCOUNTER 2023-02-22 07:09 | Outpatient (CLI) | payer MEDICARE, BC, SELFPAY | END 2023-02-22 07:10 | disposition home or self-care (01) | LOC: PUVA 07:10 | PROVIDERS: PCP Family Medicine; Visit Provider Dermatology | DX: L40.9 Psoriasis, unspecified (principal); L29.8 Other pruritus | CPT/HCPCS: 96900 ==

== ENCOUNTER 2023-03-08 07:09 | Outpatient (CLI) | payer MEDICARE, BC, SELFPAY | END 2023-03-08 07:10 | disposition home or self-care (01) | LOC: PUVA 07:09 | PROVIDERS: PCP Family Medicine; Visit Provider Dermatology | DX: L40.9 Psoriasis, unspecified (principal); L29.8 Other pruritus | CPT/HCPCS: 96900 ==

== ENCOUNTER 2023-03-12 08:02 | Day surgery (SDC) | payer MEDICARE, BC, SELFPAY ==
--- NOTE | 2023-03-12 06:41 | ANES.PREOP_ITS ---
General Info Date of Service Date Performed: 03/12/23 Height: 5 ft 9 in Weight: 70.307 kg Body Mass Index (BMI): 22.8 Surgical Procedure: Operation Date: 03/12/23 09:55 Proposed Procedure Side Surgeon p Cataract Extraction with IOL Implant Left Mayo Bass MD Meds Allergies and Home Medications Allergies Allergy/AdvReac Type Severity Reaction Status Date / Time Penicillins Allergy Mild rash Verified 03/12/23 08:20 Sulfa (Sulfonamide AdvReac Mild rash Verified 03/12/23 08:20 Antibiotics) Home Medication Medication Instructions Recorded amlodipine 10 mg tablet 10 mg PO DAILY 07/10/21 apixaban 5 mg tablet (Eliquis) 5 mg PO BID 07/10/21 calcium carb-ergocalciferol (vit 1 tab PO DAILY 07/10/21 D2) 600 mg calcium-200 unit tablet gabapentin 300 mg capsule 300 mg PO PRN PRN 07/10/21 lisinopril 5 mg tablet 5 mg PO DAILY 12/22/21 loperamide 2 mg tablet (Imodium 2 mg PO DAILY 03/10/23 A-D) Current Visit Medications: Current Medications Generic Name Dose Route Start Last Admin Trade Name Freq PRN Reason Stop Dose Admin Acetaminophen 1,000 mg 03/12/23 06:00 Acetaminophen 500 Mg Tab PO 04/11/23 05:59 Q4H PRN PRN Balanced Salt Solution 500 ml 03/12/23 06:00 Balanced Salt Soln.-Plus 500 Ml Bag OP 04/11/23 05:59 DIRECTED [facility] Miscellaneous Medication 0 ml 03/12/23 06:00 Prednisolone 1%, Moxifloxacin 0.5%, Nepafenac 0.1% 5ml Btl OS 04/11/23 05:59 DIRECTED [facility] Miscellaneous Medication 0 ml 03/12/23 06:00 Tropicam./Phenyleph. (1/2.5%) 5 Ml Btl OS 04/11/23 05:59 DIRECTED K[facility] Tetracaine HCl 0 ml 03/12/23 06:00 Tetracaine 0.5% 4 Ml Btl OS 04/11/23 05:59 DIRECTED [facility] PFSH Active Problems Active Problems: Problem Status Onset Code Right rotator cuff tear M75.101 Diarrhea R19.7 Abdominal pain R10.9 Medical History Medical History (Updated 03/10/23 @ 11:50 by Duke Osei) Atrial fibrillation Bilateral tinnitus 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 Pruritus Tobacco Smoking/Tobacco Use Status: Former Tobacco Use Alcohol Alcohol Intake: current Alcohol intake frequency: holidays/special occasions only Substance Use Substance use: Never Substance use type: does not use Vital Signs and Lab Results Vital Signs Most Recent Vital Signs in EMR: Temp Pulse Resp BP Pulse Ox 36.7 C 67 16 157/84 H 99 03/12/23 08:05 03/12/23 08:05 03/12/23 08:05 03/12/23 08:05 03/12/23 08:05 Lab Results Blood Type / Crossmatch: No Data to Display Complete Blood Count: No Data to Display Complete Metabolic Panel: No Data to Display Liver Function Panel: No Data to Display Coagulation Panel: No Data to Display Cardiac Panel: No Data to Display Arterial Blood Gas: No Data to Display Venous Blood Gas: No Data to Display Pancreas Panel: No Data to Display Thyroid Panel: No Data to Display Infectious Disease: No Data to Display Blood Cultures: No Data to Display Toxicology Panel: No Data to Display Anesthesia Assessment and Plan Anesthesia History Personal History: No History of Anesthesia Complications Family History: No Family History of Anesthesia Complications Exercise Tolerance Exercise Tolerance: Metabolic Equivalents>4 Cardiac & Pulmonary Exam Cardiac Exam: Normal S1/S2 Heart Sounds Pulmonary Exam: Clear Bilateral Breath Sounds Implantable Cardiac Device Does patient have a Pacemaker or an ICD?: No Airway Exam Known Difficult Airway: No Mallampati Class: 3 Mouth Opening: Normal (> 3cm) Thyromental Distance: Greater than 3 cm Neck Range of Motion: Full ROM Neck Circumference: Normal Teeth Condition: Removable Dentures/Plates Upper and Removable Dentures/Plates Lower ASA Classification ASA Score: ASA 3 Emergency Case?: No NPO Status NPO Status: NPO Clears >2 hours, Solids >8 hours Anesthesia Plan Resuscitation Status: Full Code Anesthesia Technique: MAC Anesthesia Airway Planned: Natural Airway Monitors Used: Standard Monitors Preoperative Comments:: 82 yo male for cataract. no MKO. Sig PMHx: afib (xeralto, well controlled), GERD, HTN, hypothyroid, lung neoplasm.
[2023-03-12 08:05] VITALS: BP 157/84; PULSE 67; RESP 16; TEMP 36.7; O2SAT 99
[2023-03-12 08:16] VITALS: BMI 22.8
[2023-03-12] MEDS: Tropicam./Phenyleph. (1/2.5%) 5 ML BTL OS ×3 (08:23→08:37)
[2023-03-12] MEDS: Tetracaine 0.5% 4 ML BTL OS (09:50)
[2023-03-12] MEDS: Povidone-Iodine Ophth 30 ML BTL (09:52)
[2023-03-12] MEDS: Duovisc Viscoelastic System EACH 1 EACH (09:58)
[2023-03-12] MEDS: Balanced Salt Soln.-PLUS 500 ML BAG OP (09:59)
[2023-03-12] MEDS: Lidocaine 1% Pres-Free 5 ML VIAL (10:00)
[2023-03-12] MEDS: Phenylephrine/Lidocaine (15/10) MG/ML 1 ML VIAL (10:01)
--- NOTE | 2023-03-12 10:35 | W.PM.DSUDISC ---
Date of service: 03/12/23 Time of Service: 10:35 Discharge Plan Disposition Patient Disposition: Home Discharge Details Attending Provider: Mayo Bass Primary Care Provider: Brianne Sin Home Meds and New Rx's Prescriptions: No Action amlodipine 10 mg tablet 10 mg PO DAILY Patient Comments: Pt reports he stopped taking Amlodipine d/t low blood pressures. Pt advised he will discuss this with his PCP at next visit. 06/01/22 gabapentin 300 mg capsule 300 mg PO PRN PRN calcium carbonate-vitamin D2 600 mg calcium- 200 unit Tablet 1 tab PO DAILY Eliquis 5 mg tablet 5 mg PO BID lisinopril 5 mg Tablet 5 mg PO DAILY loperamide [Imodium A-D] 2 mg Tablet 2 mg PO DAILY Discharge Instructions Stand Alone Forms: Post-op Topical Cataract, Burt Beverly (DSU) Discharge Orders Discharge Orders: Discharge Order (Routine); Ordered 03/12/23 Ordered By: Mayo Bass DS: Diagnosis Discharge Diagnosis (1) Nuclear age-related cataract, left eye: Status: Resolved (2) Cortical age-related cataract, left eye: Status: Resolved (3) Posterior subcapsular age-related cataract of left eye: Status: Resolved
--- NOTE | 2023-03-12 10:36 | W.PM.OP ---
Date of service: 03/12/23 Time of Service: 10:36 Operative Note Operative Note DATE OF PROCEDURE: 03/12/23 PRE-OP DIAGNOSIS: Nuclear/cortical/posterior subcapsular cataract, left eye POST-OP DIAGNOSIS: same Posterior capsular tear, left eye PROCEDURE: Cataract extraction using phacoemulsification with intraocular lens implant, left eye SURGEON: Mayo Bass ANESTHESIA TYPE: Local By Surgeon and MAC Refer to Anesthesia Record PATHOLOGY: none sent COMPLICATIONS: None Patient was transported to: same day Patient's condition: stable Implants: Peter and Peter Sensar [id number] Indications: Progressive decreased vision due to cataract, left eye Findings: Posterior capsular tear, left eye, possibly secondary to previous intravitreal injections Procedure Description: CATARACT SURGERY OPERATIVE REPORT PREOPERATIVE DIAGNOSIS: 1. Nuclear/cortical/posterior subcapsular cataract, left eye POSTOPERATIVE DIAGNOSIS: Same OPERATION: 1. Cataract extraction using phacoemulsification with posterior chamber intraocular lens implant, left eye. IOL: IOL Quality Engineer Medical Device/Model: Peter & Peter Tecnis AR40e, sulcus fixated with optic capture IOL Power: + 20.0 diopters IOL Serial Number: [id number] Optic Diameter: 6.0 mm Haptic/Overall Diameter: 13.0 mm PHACO INFO: Franco Centurion Vision System with OZil and Active Fluidics Cumulative Dispersed Energy (CDE): 10.08 seconds SURGEON: Mayo Bass MD, ABDIRAHMAN ANESTHESIA: Monitored A [facility] ([facility] [place]), with local sub-tenon's anesthetic infiltration COMPLICATIONS: Posterior capsular tear, without vitreous loss SPECIMENS: None INDICATIONS FOR PROCEDURE: The patient is an 82-year-old gentleman with history of diminished visual acuity in his left eye secondary to the development of nuclear/cortical/posterior subcapsular cataract. He also has a history of retinal vein occlusion for which he has undergone previous intravitreal injections. He now presents for cataract surgery in the left eye, understanding that postoperative visual acuity will be limited by the presence of previous retinal vasculopathy. PROCEDURE: The correct surgical eye was identified and marked as the left eye and the pupil was dilated in the preoperative area using mydriatics and cycloplegics. The dilated pupil size was 7.0 mm. The patient elected to proceed without oral sedation. The patient was brought to the operating room where cardiopulmonary monitoring was instituted and surgical time-out was performed, confirming the correct operative eye and IOL power. Topical anesthesia was administered and ophthalmic povidone-iodine 5% was instilled into the conjunctival fornices. The alana-ocular area was prepped with Betadine 10% solution and draped in the usual sterile fashion for intraocular surgery, including an aperture drape. A Tegaderm transparent film dressing was cut in half and used to cover the lashes and lid margins. Care was taken to sequester the lashes and lid margins under the Tegaderm dressing. A lid speculum was placed between the lids of the operative eye and the Franco LuxOR Revalia operating microscope was maneuvered into position. Edwin scissors were then used to make a conjunctival buttonhole approximately 6mm posterior to the limbus in the inferonasal quadrant. Blunt dissection was carried out to expose bare sclera, and a blunt-tipped sub-tenon?s anesthesia cannula was introduced and passed posteriorly along the globe where non-preserved plain lidocaine was injected into posterior sub-Tenon?s space. A sideport knife was used to make a paracentesis port superiorly/superiortemporally. Intraocular phenylephrine/lidocaine was injected int the anterior chamber.. The anterior chamber was filled with viscoelastic. A keratome knife was used to construct a 2-plane near-clear corneal tunnel extending 2.0mm into clear cornea temporally. A flap was raised on the anterior capsule and capsulorhexis forceps were used to complete a continuous curvilinear capsulorhexis of 5.5 mm. Balanced salt solution was then used to perform cortical cleaving hydrodissection and nuclear hydrodelineation. Length could not be freely rotated, however. The lens nucleus was then disassembled and removed within the capsular bag and iris plane using phacoemulsification. A stop & chop used. Residual cortical material was removed using the 45-degree angled silicone I/A tip with 0.3mm port. During cortical cleanup, a discontinuity was noted in the posterior capsule from the 5:00 to the 8 o'clock position. No vitreous was noted to present.. Dispersive viscoelastic was then injected into the area of capsular discontinuity as a barricade against vitreous prolapse. The remaining cortical material was then carefully removed using low flow settings. Cohesive viscoelastic was injected into the anterior chamber and also under the iris margin to widen the sulcus.. The main incision was enlarged slightly, and the Megargel injector was then used to inject the since our lens, with the leading haptic directly into the sulcus nasally. . A Kuglen hook was used to position the trailing haptic in the sulcus. The haptics were oriented at approximately 12 and 6:00. The optic was then retropulsed posteriorly and captured within the anterior capsulorrhexis. Miostat was then injected in small aliquots at the iris margin. The pupil was noted to constrict with no evidence of distortion of the pupillary margin. Residual viscoelastic was then carefully and slowly removed from the anterior chamber using the I/A handpiece. The lens implant was noted to center nicely with the optic captured within the anterior capsulorrhexis.. The incisions were stromally hydrated, and the anterior chamber was reformed using BSS. Then 0.5cc of moxifloxacin 1.0mg/ml were injected into the capsular bag and anterior chamber. The incisions were checked with a Weck spear and found to be secure. The pupil was noted to be round with no peaking. Several drops of ophthalmic povidone-iodine 5% were then applied to the eye followed by two drops of Imprimis combination prednisolone/moxifloxacin/nepafenac solution. The drapes were removed and a clear plastic protective eye shield was placed over the eye. The patient was then returned to Same Day Surgery in stable condition.
[2023-03-12 10:40] VITALS: BP 123/86; PULSE 53; RESP 18; TEMP 36.8; O2SAT 100
--- NOTE | 2023-03-12 11:10 | W.ANESPOSTOP ---
Postoperative Evaluation Date, Time and Location Date Performed: 03/12/23 Time Performed: 10:50 Patient Location: Day Surgery Unit Vital Signs Most Recent Imported Vital Signs: Most Recent Vital Signs Temp Pulse Resp BP Pulse Ox 36.8 C 53 L 18 123/86 100 03/12/23 10:40 03/12/23 10:40 03/12/23 10:40 03/12/23 10:40 03/12/23 10:40 Pain Score Most Recent Pain Score: Most Recent Pain Score Pain Level 0 03/12/23 10:40 Assessment Mental Status: Awake (Alert & Oriented to Patient Baseline) Airway and Respiratory Function: Patent airway with normal (patient baseline) respiratory exam Cardiovascular Function: Hemodynamically Stable Hydration Status: Adequately Hydrated Nausea & Vomiting: No Nausea or Vomiting Pain: Pt. Denies Any Pain Peripheral Nerve Block: Patient did not receive a nerve block
== END 2023-03-12 10:52 | disposition home or self-care (01) ==
LOC: SUR 08:02
PROVIDERS: PCP Family Medicine; Visit Provider Ophthalmology
PROC: (CPT 66984; principal; 2023-03-12 09:45)
DX: H25.12 Age-related nuclear cataract, left eye (principal); H25.012 Cortical age-related cataract, left eye; H25.042 Posterior subcapsular polar age-related cataract, left eye; I10 Essential (primary) hypertension; K21.9 Gastro-esophageal reflux disease without esophagitis
CPT/HCPCS: 66984; V2632

== ENCOUNTER 2023-04-05 07:22 | Outpatient (CLI) | payer MEDICARE, BC, SELFPAY | END 2023-04-05 07:23 | disposition home or self-care (01) | LOC: PUVA 07:22 | PROVIDERS: PCP Family Medicine; Visit Provider Dermatology | DX: L40.9 Psoriasis, unspecified (principal) | CPT/HCPCS: 96900 ==

== ENCOUNTER 2023-04-19 07:29 | Outpatient (CLI) | payer MEDICARE, BC, SELFPAY | END 2023-04-19 07:30 | disposition home or self-care (01) | LOC: PUVA 07:29 | PROVIDERS: PCP Family Medicine; Visit Provider Dermatology | DX: L40.9 Psoriasis, unspecified (principal); L29.8 Other pruritus | CPT/HCPCS: 96900 ==

== ENCOUNTER 2023-05-10 07:35 | Outpatient (CLI) | payer MEDICARE, BC, SELFPAY | END 2023-05-10 07:36 | disposition home or self-care (01) | LOC: PUVA 07:36 | PROVIDERS: PCP Family Medicine; Visit Provider Dermatology | DX: L40.9 Psoriasis, unspecified (principal); L29.8 Other pruritus | CPT/HCPCS: 96900 ==

== ENCOUNTER 2023-10-12 09:12 | Outpatient (CLI) | payer MEDICARE, BC, SELFPAY | END 2023-10-12 09:13 | disposition home or self-care (01) | LOC: PUVA 09:12 | PROVIDERS: PCP Family Medicine; Visit Provider Dermatology | DX: L29.9 Pruritus, unspecified (principal) | CPT/HCPCS: 96900 ==

== ENCOUNTER 2023-10-18 07:49 | Outpatient (CLI) | payer MEDICARE, BC, SELFPAY | END 2023-10-18 07:50 | disposition home or self-care (01) | LOC: PUVA 07:50 | PROVIDERS: PCP Family Medicine; Visit Provider Dermatology | DX: L29.8 Other pruritus (principal) | CPT/HCPCS: 96900 ==

== ENCOUNTER 2023-10-26 07:57 | Outpatient (CLI) | payer MEDICARE, BC, SELFPAY | END 2023-10-26 07:58 | disposition home or self-care (01) | LOC: PUVA 07:58 | PROVIDERS: PCP Family Medicine; Visit Provider Dermatology | DX: L29.8 Other pruritus (principal) | CPT/HCPCS: 96900 ==

== ENCOUNTER 2023-11-02 20:06 | Outpatient (CLI) | payer MEDICARE, BC, SELFPAY | END 2023-11-02 20:07 | disposition home or self-care (01) | LOC: PUVA 20:06 | PROVIDERS: PCP Family Medicine; Visit Provider Dermatology | DX: L29.8 Other pruritus (principal) | CPT/HCPCS: 96900 ==

== ENCOUNTER 2023-11-08 08:02 | Outpatient (CLI) | payer MEDICARE, BC, SELFPAY | END 2023-11-08 08:03 | disposition home or self-care (01) | LOC: PUVA 08:02 | PROVIDERS: PCP Family Medicine; Visit Provider Dermatology | DX: L29.8 Other pruritus (principal) | CPT/HCPCS: 96900 ==

== ENCOUNTER 2023-11-15 07:16 | Outpatient (CLI) | payer MEDICARE, BC, SELFPAY | END 2023-11-15 07:17 | disposition home or self-care (01) | LOC: PUVA 07:16 | PROVIDERS: PCP Family Medicine; Visit Provider Dermatology | DX: L29.8 Other pruritus (principal) | CPT/HCPCS: 96900 ==

== ENCOUNTER 2023-11-29 07:57 | Outpatient (CLI) | payer MEDICARE, BC, SELFPAY | END 2023-11-29 07:58 | disposition home or self-care (01) | LOC: PUVA 07:57 | PROVIDERS: PCP Family Medicine; Visit Provider Dermatology | DX: L29.8 Other pruritus (principal) | CPT/HCPCS: 96900 ==

== ENCOUNTER 2023-12-07 07:04 | Outpatient (CLI) | payer MEDICARE, BC, SELFPAY | END 2023-12-07 07:05 | disposition home or self-care (01) | PROVIDERS: PCP Family Medicine; Visit Provider Dermatology | DX: L40.9 Psoriasis, unspecified (principal) | CPT/HCPCS: 96900 ==

== ENCOUNTER 2023-12-13 07:26 | Outpatient (CLI) | payer MEDICARE, BC, SELFPAY | END 2023-12-13 07:27 | disposition home or self-care (01) | LOC: PUVA 07:27 | PROVIDERS: PCP Family Medicine; Visit Provider Dermatology | DX: L40.9 Psoriasis, unspecified (principal) | CPT/HCPCS: 96900 ==

== ENCOUNTER 2023-12-21 07:04 | Outpatient (CLI) | payer MEDICARE, BC, SELFPAY | END 2023-12-21 07:05 | disposition home or self-care (01) | LOC: PUVA 07:04 | PROVIDERS: PCP Family Medicine; Visit Provider Dermatology | DX: L40.9 Psoriasis, unspecified (principal) | CPT/HCPCS: 96900 ==

== ENCOUNTER 2023-12-27 07:30 | Outpatient (CLI) | payer MEDICARE, BC, SELFPAY | END 2023-12-27 07:31 | disposition home or self-care (01) | LOC: PUVA 07:30 | PROVIDERS: PCP Family Medicine; Visit Provider Dermatology | DX: L29.8 Other pruritus (principal) | CPT/HCPCS: 96900 ==

== ENCOUNTER 2024-01-03 07:24 | Outpatient (CLI) | payer MEDICARE, BC, SELFPAY | END 2024-01-03 07:25 | disposition home or self-care (01) | LOC: PUVA 07:25 | PROVIDERS: PCP Family Medicine; Visit Provider Dermatology | DX: L29.8 Other pruritus (principal) | CPT/HCPCS: 96900 ==

== ENCOUNTER 2024-01-11 07:04 | Outpatient (CLI) | payer MEDICARE, BC, SELFPAY | END 2024-01-11 07:05 | disposition home or self-care (01) | LOC: PUVA 07:04 | PROVIDERS: PCP Family Medicine; Visit Provider Dermatology | DX: L29.8 Other pruritus (principal) | CPT/HCPCS: 96900 ==

== ENCOUNTER 2024-01-17 07:07 | Outpatient (CLI) | payer MEDICARE, BC, SELFPAY | END 2024-01-17 07:08 | disposition home or self-care (01) | LOC: PUVA 07:07 | PROVIDERS: PCP Family Medicine; Visit Provider Dermatology | DX: L29.8 Other pruritus (principal) | CPT/HCPCS: 96900 ==

== ENCOUNTER 2024-01-24 07:22 | Outpatient (CLI) | payer MEDICARE, BC, SELFPAY | END 2024-01-24 07:23 | disposition home or self-care (01) | LOC: PUVA 07:22 | PROVIDERS: PCP Family Medicine; Visit Provider Dermatology | DX: L29.8 Other pruritus (principal) | CPT/HCPCS: 96900 ==

== ENCOUNTER 2024-01-31 07:20 | Outpatient (CLI) | payer MEDICARE, BC, SELFPAY | END 2024-01-31 07:21 | disposition home or self-care (01) | LOC: PUVA 07:20 | PROVIDERS: PCP Family Medicine; Visit Provider Dermatology | DX: L29.8 Other pruritus (principal) | CPT/HCPCS: 96900 ==

== ENCOUNTER 2024-02-08 08:36 | Outpatient (CLI) | payer MEDICARE, BC, SELFPAY | END 2024-02-08 08:37 | disposition home or self-care (01) | LOC: PUVA 08:36 | PROVIDERS: PCP Family Medicine; Visit Provider Dermatology | DX: L29.8 Other pruritus (principal) | CPT/HCPCS: 96900 ==

== ENCOUNTER 2024-02-21 07:10 | Outpatient (CLI) | payer MEDICARE, BC, SELFPAY | END 2024-02-21 07:11 | disposition home or self-care (01) | LOC: PUVA 07:10 | PROVIDERS: PCP Family Medicine; Visit Provider Dermatology | DX: L29.8 Other pruritus (principal) | CPT/HCPCS: 96900 ==

== ENCOUNTER 2024-02-28 06:58 | Outpatient (CLI) | payer MEDICARE, BC, SELFPAY | END 2024-02-28 06:59 | disposition home or self-care (01) | PROVIDERS: PCP Family Medicine; Visit Provider Dermatology | DX: L29.8 Other pruritus (principal) | CPT/HCPCS: 96900 ==

== ENCOUNTER 2024-03-09 01:14 | Outpatient (CLI) | payer MEDICARE, BC, SELFPAY ==
[2024-03-09 11:55] LABS: Abs Immature Grans 0.01 10^3/uL (0.0-0.06); Absolute Basophil Count 0.03 10^3/uL (0.0-0.2); Absolute Eosinophil Count 0.34 10^3/uL (0.0-0.7); Absolute Lymphocyte Count 0.62 10^3/uL (1.2-3.4); Absolute Monocyte Count 0.45 10^3/uL (0.1-0.8); Absolute Neutrophil Count 3.11 10^3/uL (1.2-6.7); Basophils % 0.7 %; Eosinophils % 7.5 %; HCT 45.9 % (40.0-50.0); HGB 14.6 g/dL (13.5-17.5); Immature Grans % 0.2 %; Lymphocytes % 13.6 %; MCH 29.8 pg (27.0-33.0); MCHC 31.8 % (32.0-36.0); MCV 94 fL (80-95); MPV 9.7 fL (8.0-11.0); Monocytes % 9.9 %; Neutrophils % 68.1 %; Platelet Count 162 10^3/uL (130-400); RDW 13.6 % (11.8-14.1); RDW-SD 46.4 fL; WBC 4.56 10^3/uL (4.4-10.8)
[2024-03-09 12:25] LABS: ALT 22 U/L (16-63); AST 22 U/L (15-37); Albumin 3.9 g/dL (3.4-5.0); Alkaline Phosphatase 125 U/L (46-116); BUN 27 mg/dL (7-18); Bilirubin, Total 0.9 mg/dL (0.2-1.0); CREATININE 1.5 mg/dL (0.70-1.30); Calcium 9.4 mg/dL (8.5-10.1); Chloride 105 mmol/L (98-107); Estimated GFR 46.48 (mL/min/1.73m2); Glucose 103 mg/dL (74-106); Potassium 4.4 mmol/L (3.5-5.1); Sodium 143 mmol/L (136-145); TSH 3.91 uIU/Ml (0.36-3.74); Total Protein 7.3 g/dL (6.4-8.2)
== END 2024-03-09 01:15 | disposition home or self-care (01) ==
LOC: LBO 01:14
PROVIDERS: PCP Family Medicine; Visit Provider Internal Medicine Hematology & Oncology
DX: E03.2 Hypothyroidism due to medicaments and other exogenous substances (principal); C34.91 Malignant neoplasm of unspecified part of right bronchus or lung
CPT/HCPCS: 36415; 80053; 84443; 85025

== ENCOUNTER 2024-03-13 08:04 | Outpatient (CLI) | payer MEDICARE, BC, SELFPAY | END 2024-03-13 08:05 | disposition home or self-care (01) | LOC: PUVA 08:04 | PROVIDERS: PCP Family Medicine; Visit Provider Dermatology | DX: L29.9 Pruritus, unspecified (principal) | CPT/HCPCS: 96900 ==

== ENCOUNTER 2024-03-28 07:00 | Outpatient (CLI) | payer MEDICARE, BC, SELFPAY | END 2024-03-28 07:01 | disposition home or self-care (01) | LOC: PUVA 07:00 | PROVIDERS: PCP Family Medicine; Visit Provider Dermatology | DX: L29.8 Other pruritus (principal) | CPT/HCPCS: 96900 ==

== ENCOUNTER 2024-04-11 07:01 | Outpatient (CLI) | payer MEDICARE, BC, SELFPAY | END 2024-04-11 07:02 | disposition home or self-care (01) | LOC: PUVA 07:01 | PROVIDERS: PCP Family Medicine; Visit Provider Dermatology | DX: L29.8 Other pruritus (principal) | CPT/HCPCS: 96900 ==

== ENCOUNTER 2024-04-25 07:07 | Outpatient (CLI) | payer MEDICARE, BC, SELFPAY | END 2024-04-25 07:08 | disposition home or self-care (01) | LOC: PUVA 07:08 | PROVIDERS: PCP Family Medicine; Visit Provider Dermatology | DX: L29.8 Other pruritus (principal) | CPT/HCPCS: 96900 ==

== ENCOUNTER 2024-05-09 09:01 | Outpatient (CLI) | payer MEDICARE, BC, SELFPAY | END 2024-05-09 09:02 | disposition home or self-care (01) | LOC: PUVA 09:02 | PROVIDERS: PCP Family Medicine; Visit Provider Dermatology | DX: L29.8 Other pruritus (principal) | CPT/HCPCS: 96900 ==

== ENCOUNTER 2024-05-23 07:04 | Outpatient (CLI) | payer MEDICARE, BC, SELFPAY | END 2024-05-23 07:05 | disposition home or self-care (01) | LOC: PUVA 07:04 | PROVIDERS: PCP Family Medicine; Visit Provider Dermatology | DX: L29.8 Other pruritus (principal) | CPT/HCPCS: 96900 ==

== ENCOUNTER 2024-05-26 12:33 | Day surgery (SDC) | payer MEDICARE, BC, SELFPAY ==
[2024-05-26 13:22] VITALS: BP 167/82; PULSE 69; RESP 16; TEMP 36.2; O2SAT 97
[2024-05-26] MEDS: Tropicam./Phenyleph. (1/2.5%) 5 ML BTL OD ×3 (13:31→13:42)
--- NOTE | 2024-05-26 14:05 | W.ANESPRE ---
General Info Date of Service Date Performed: 05/26/24 Height: 5 ft 9 in Weight: 64.2 kg Body Mass Index (BMI): 20.9 Surgical Procedure: Operation Date: 05/26/24 15:40 Proposed Procedure Side Surgeon p Cataract Extraction with IOL Implant Right Mayo Bass MD Meds Allergies and Home Medications Allergies Allergy/AdvReac Type Severity Reaction Status Date / Time Penicillins Allergy Mild rash Verified 05/26/24 13:17 Sulfa (Sulfonamide AdvReac Mild rash Verified 05/26/24 13:17 Antibiotics) Home Medication ?Medication ?Instructions ?Recorded apixaban 5 mg tablet (Eliquis) 5 mg PO BID 07/10/21 calcium carb-ergocalciferol (vit 1 tab PO DAILY 07/10/21 D2) 600 mg calcium-200 unit tablet gabapentin 300 mg capsule 300 mg PO PRN PRN 07/10/21 lisinopril 5 mg tablet 5 mg PO DAILY 12/22/21 loperamide 2 mg tablet (Imodium 2 mg PO DAILY PRN 03/10/23 A-D) Current Visit Medications: Current Medications Generic Name Dose Route Start Last Admin Trade Name Freq PRN Reason Stop Dose Admin Acetaminophen 1,000 mg 05/26/24 06:00 Acetaminophen 500 Mg Tab PO 06/25/24 05:59 Q4H PRN PRN Balanced Salt Solution 500 ml 05/26/24 06:00 Balanced Salt Soln.-Plus 500 Ml Bag OP 06/25/24 05:59 DIRECTED [facility] Miscellaneous Medication 0 ml 05/26/24 06:00 Prednisolone 1%, Moxifloxacin 0.5%, Bromfenac 0.09% 5ml Btl OD 06/25/24 05:59 DIRECTED [facility] Miscellaneous Medication 0 ml 05/26/24 06:00 05/26/24 13:42 Tropicam./Phenyleph. 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 HTN (hypertension) HLD (hyperlipidemia) GERD (gastroesophageal reflux disease) Chronic rhinitis Bilateral tinnitus Atrial fibrillation Surgical History Surgical History Hx of shoulder surgery left H/O cataract removal with insertion of prosthetic lens Tobacco Smoking/Tobacco Use Status: Former Tobacco Use Alcohol Alcohol Intake: current Alcohol intake frequency: holidays/special occasions only Substance Use Substance use: Never Substance use type: does not use Vital Signs and Lab Results Vital Signs Most Recent Vital Signs in EMR: Most Recent Vital Signs Temp Pulse Resp BP Pulse Ox 36.2 C L 69 16 167/82 H 97 05/26/24 13:22 05/26/24 13:22 05/26/24 13:22 05/26/24 13:22 05/26/24 13:22 Lab Results Blood Type / Crossmatch: No Data to Display Complete Blood Count: No Data to Display Complete Metabolic Panel: No Data to Display Liver Function Panel: No Data to Display Coagulation Panel: No Data to Display Cardiac Panel: No Data to Display Arterial Blood Gas: No Data to Display Venous Blood Gas: No Data to Display Pancreas Panel: No Data to Display Thyroid Panel: No Data to Display Infectious Disease: No Data to Display Blood Cultures: No Data to Display Toxicology Panel: No Data to Display Anesthesia Assessment and Plan Anesthesia History Personal History: No History of Anesthesia Complications Family History: No Family History of Anesthesia Complications Exercise Tolerance Exercise Tolerance: Metabolic Equivalents>4 Pertinent Negatives Pertinent Negatives: No Symptoms of GERD Cardiac & Pulmonary Exam Cardiac Exam: Other Pulmonary Exam: Clear Bilateral Breath Sounds Implantable Cardiac Device Does patient have a Pacemaker or an ICD?: No Airway Exam Known Difficult Airway: No Mallampati Class: 3 Mouth Opening: Normal (> 3cm) Thyromental Distance: Greater than 3 cm Neck Range of Motion: Full ROM Neck Circumference: Normal Teeth Condition: Removable Dentures/Plates Upper and Removable Dentures/Plates Lower ASA Classification ASA Score: ASA 3 Emergency Case?: No NPO Status NPO Status: NPO Clears >2 hours, Solids >8 hours Anesthesia Plan Resuscitation Status: Full Code Anesthesia Technique: MAC Anesthesia Airway Planned: Natural Airway Monitors Used: Standard Monitors
[2024-05-26 14:06] VITALS: BMI 20.9
[2024-05-26] MEDS: Tetracaine 0.5% 4 ML BTL OD (14:55)
[2024-05-26] MEDS: Povidone-Iodine Ophth 30 ML BTL (14:55)
[2024-05-26] MEDS: Duovisc Viscoelastic System EACH 1 EACH (15:00)
[2024-05-26] MEDS: Balanced Salt Soln.-PLUS 500 ML BAG OP (15:00)
[2024-05-26] MEDS: Lidocaine 1% Pres-Free 5 ML VIAL (15:01)
[2024-05-26 15:15] VITALS: BP 150/83; PULSE 66; RESP 16; TEMP 36.5; O2SAT 99
--- NOTE | 2024-05-26 15:20 | W.PM.DSUDISC ---
Date of service: 05/26/24 Time of Service: 15:20 Discharge Plan Disposition Patient Disposition: Home Discharge Details Attending Provider: Mayo Bass Primary Care Provider: Brianne Sin Home Meds and New Rx's Prescriptions: No Action gabapentin 300 mg capsule 300 mg PO PRN PRN calcium carbonate-vitamin D2 600 mg calcium- 200 unit Tablet 1 tab PO DAILY Eliquis 5 mg tablet 5 mg PO BID lisinopril 5 mg Tablet 5 mg PO DAILY loperamide [Imodium A-D] 2 mg Tablet 2 mg PO DAILY PRN Discharge Instructions Stand Alone Forms: DSU Post-Op Cataract, Burt Beverly (DSU) Discharge Orders Discharge Orders: Discharge Order (Routine); Ordered 05/26/24 Ordered By: Mayo Bass DS: Diagnosis Discharge Diagnosis (1) Nuclear age-related cataract, right eye: Status: Resolved
--- NOTE | 2024-05-26 15:21 | ROE_ITS ---
Date of service: 05/26/24 Time of Service: 15:21 Operative Note Operative Note DATE OF PROCEDURE: 05/26/24 PRE-OP DIAGNOSIS: Nuclear/cortical cataract, right eye POST-OP DIAGNOSIS: same PROCEDURE: Cataract extraction using phacoemulsification with intraocular lens implant, right eye SURGEON: Mayo Bass ANESTHESIA TYPE: Local By Surgeon and MAC Refer to Anesthesia Record ESTIMATED BLOOD LOSS: 0 PATHOLOGY: none sent COMPLICATIONS: None Patient was transported to: same day Patient's condition: stable Implants: Franco Clareon [id number] Indications: Progressive decreased vision due to cataract, right eye Procedure Description: CATARACT SURGERY OPERATIVE REPORT PREOPERATIVE DIAGNOSIS: Nuclear/cortical cataract, right eye POSTOPERATIVE DIAGNOSIS: Same OPERATION: Cataract extraction using phacoemulsification with posterior chamber intraocular lens implant, right eye. IOL: IOL Drum Straightener/Model: Franco Clareon [id number] IOL Power: + 20.0 diopters IOL Serial Number: [id number] Optic Diameter: 6.0mm Haptic/Overall Diameter: 13.0mm PHACO INFO: Franco Lux Biosciencesurion Vision System with OZil and Active Fluidics Cumulative Dispersed Energy (CDE): 7.61 seconds SURGEON: Mayo Bass MD, ABDIRAHMAN ANESTHESIA: Monitored Anesthesia Care (MAC), with local sub-tenon's anesthetic infiltration COMPLICATIONS: None SPECIMENS: None INDICATIONS FOR PROCEDURE: The patient is an 83-year-old male with history of bilateral cataracts. He previously underwent cataract surgery in the left eye in 2022 with implantation of sulcus fixated lens. He has now developed a dense nuclear/cortical cataract in the right eye and desires cataract surgery there and attempt to improve and maximize his vision. See office notes for detailed information. PROCEDURE: The correct surgical eye was identified and marked as the right eye and the pupil was dilated in the preoperative area using mydriatics and cycloplegics. The dilated pupil size was 7.0 mm. Oral sedation was administered in the form of an Imprimis MKO Melt (midazolam 3mg/ketamine 25mg/ondansetron 2mg). The patient elected to proceed without oral sedation. The patient was brought to the operating room where cardiopulmonary monitoring was instituted an d surgical time-out was performed, confirming the correct operative eye and IOL power. Topical anesthesia was administered and ophthalmic povidone-iodine 5% was instilled into the conjunctival fornices. The alana-ocular area was prepped with Betadine 10% solution and draped in the usual sterile fashion for intraocular surgery, including an aperture drape. A Tegaderm transparent film dressing was cut in half and used to cover the lashes and lid margins. Care was taken to sequester the lashes and lid margins under the Tegaderm dressing. A lid speculum was placed between the lids of the operative eye and the Franco LuxOR Revalia operating microscope was maneuvered into position. Edwin scissors were then used to make a conjunctival buttonhole approximately 6mm posterior to the limbus in the inferonasal quadrant. Blunt dissection was carried out to expose bare sclera, and a blunt-tipped sub-tenon?s anesthesia cannula was introduced and passed posteriorly along the globe where non-p reserved plain lidocaine was injected into posterior sub-Tenon?s space. A sideport knife was used to make a paracentesis port. Intraocular phenylephrine/lidocaine was injected into the anterior chamber. The anterior chamber was then filled with viscoelastic. A keratome knife was used to construct a two--plane clear corneal tunnel extending 2.0mm into clear cornea. A flap was raised on the anterior capsule and capsulorhexis forceps were used to complete a continuous curvilinear capsulorhexis of 5.0 mm. Balanced salt solution was then used to perform cortical cleaving hydrodissection and nuclear hydrodelineation until the lens could be freely rotated within the capsular bag. The lens nucleus was then disassembled and removed within the capsular bag and iris plane using phacoemulsification. Residual cortical material was removed using the I/A handpiece. The posterior capsule was carefully polished to remove as much residual lens epithelial cells as safely possible. The capsular bag was then inflated and the anterior chamber deepened with cohesive viscoelastic. The lens implant described above was inserted into the capsular bag using the Franco Autonome Injector. A Kuglen hook was used to dial the IOL into position. Residual viscoelastic was then removed first from posterior to the IOL, then from the anterior chamber using the I/A handpiece. The lens implant was noted t o center nicely within the capsular bag. The incisions were stromally hydrated, and the anterior chamber was reformed using BSS. Then 0.5cc of moxifloxacin 1.0mg/ml were injected into the capsular bag and anterior chamber. The incisions were checked with a Weck spear and found to be secure. Several drops of ophthalmic povidone-iodine 5% were then applied to the eye followed by two drops of combination steroid/NSAID/antibiotic solution. The drapes were removed and a clear plastic protective eye shield was placed over the eye. The patient was then returned to Same Day Surgery in stable condition.
--- NOTE | 2024-05-26 15:37 | W.ANESPOSTOP ---
Postoperative Evaluation Date, Time and Location Date Performed: 05/26/24 Time Performed: 16:00 Patient Location: Day Surgery Unit Vital Signs Most Recent Imported Vital Signs: Most Recent Vital Signs Temp Pulse Resp BP Pulse Ox 36.2 C L 69 16 167/82 H 97 05/26/24 13:22 05/26/24 13:22 05/26/24 13:22 05/26/24 13:22 05/26/24 13:22 Pain Score Most Recent Pain Score: Most Recent Pain Score Pain Level 0 05/26/24 13:22 Assessment Mental Status: Awake (Alert & Oriented to Patient Baseline) Airway and Respiratory Function: Patent airway with normal (patient baseline) respiratory exam Cardiovascular Function: Hemodynamically Stable Hydration Status: Adequately Hydrated Nausea & Vomiting: No Nausea or Vomiting Pain: Pt. Denies Any Pain Peripheral Nerve Block: Patient did not receive a nerve block
== END 2024-05-26 15:31 | disposition home or self-care (01) ==
LOC: SUR 12:33
PROVIDERS: PCP Family Medicine; Visit Provider Ophthalmology
PROC: (CPT 66984; principal; 2024-05-26 15:30)
DX: H25.11 Age-related nuclear cataract, right eye (principal); Z98.42 Cataract extraction status, left eye
CPT/HCPCS: 66984; 00123; V2632; J2003

== ENCOUNTER 2024-06-13 09:05 | Outpatient (CLI) | payer MEDICARE, BC, SELFPAY | END 2024-06-13 09:06 | disposition home or self-care (01) | LOC: PUVA 09:06 | PROVIDERS: PCP Family Medicine; Visit Provider Dermatology | DX: L29.8 Other pruritus (principal) | CPT/HCPCS: 96900 ==

== ENCOUNTER 2024-06-27 07:28 | Outpatient (CLI) | payer MEDICARE, BC, SELFPAY | END 2024-06-27 07:29 | disposition home or self-care (01) | LOC: PUVA 07:28 | PROVIDERS: PCP Family Medicine; Visit Provider Dermatology | DX: L40.9 Psoriasis, unspecified (principal) | CPT/HCPCS: 96900 ==

== ENCOUNTER 2024-07-14 07:06 | Outpatient (CLI) | payer MEDICARE, BC, SELFPAY | END 2024-07-14 07:07 | disposition home or self-care (01) | LOC: PUVA 07:06 | PROVIDERS: PCP Family Medicine; Visit Provider Dermatology | DX: L40.0 Psoriasis vulgaris (principal) | CPT/HCPCS: 96900 ==

== ENCOUNTER 2024-07-25 16:00 | Outpatient (CLI) | payer MEDICARE, BC, SELFPAY | END 2024-07-25 16:01 | LOC: PUVA 07-31 16:01 | PROVIDERS: PCP Family Medicine; Visit Provider Dermatology | DX: L40.9 Psoriasis, unspecified (principal) | CPT/HCPCS: 96900 ==

== ENCOUNTER 2024-08-08 07:05 | Outpatient (CLI) | payer MEDICARE, BC, SELFPAY | END 2024-08-08 07:06 | disposition home or self-care (01) | LOC: PUVA 07:05 | PROVIDERS: PCP Family Medicine; Visit Provider Dermatology | DX: L40.9 Psoriasis, unspecified (principal) | CPT/HCPCS: 96900 ==

== ENCOUNTER 2024-08-22 09:16 | Outpatient (CLI) | payer MEDICARE, BC, SELFPAY | END 2024-08-22 09:17 | disposition home or self-care (01) | LOC: PUVA 09:18 | PROVIDERS: PCP Family Medicine; Visit Provider Dermatology | DX: L40.9 Psoriasis, unspecified (principal) | CPT/HCPCS: 96900 ==

== ENCOUNTER 2024-09-05 08:49 | Outpatient (CLI) | payer MEDICARE, BC, SELFPAY | END 2024-09-05 08:50 | disposition home or self-care (01) | LOC: PUVA 08:50 | PROVIDERS: PCP Family Medicine; Visit Provider Dermatology | DX: L40.9 Psoriasis, unspecified (principal) | CPT/HCPCS: 96900 ==

== ENCOUNTER 2024-09-06 12:44 | Outpatient (CLI) | payer MEDICARE, BC, SELFPAY ==
[2024-09-06 13:37] LABS: Abs Immature Grans 0.02 10^3/uL (0.0-0.06); Absolute Basophil Count 0.03 10^3/uL (0.0-0.2); Absolute Eosinophil Count 0.35 10^3/uL (0.0-0.7); Absolute Lymphocyte Count 0.45 10^3/uL (1.2-3.4); Absolute Monocyte Count 0.57 10^3/uL (0.1-0.8); Absolute Neutrophil Count 3.55 10^3/uL (1.2-6.7); Basophils % 0.6 %; HCT 45.5 % (40.0-50.0); HGB 14.7 g/dL (13.5-17.5); Immature Grans % 0.4 %; Lymphocytes % 9.1 %; MCH 29.9 pg (27.0-33.0); MCHC 32.3 % (32.0-36.0); MCV 93 fL (80-95); MPV 10.1 fL (8.0-11.0); Monocytes % 11.5 %; Neutrophils % 71.4 %; Platelet Count 180 10^3/uL (130-400); RBC 4.91 10^6/uL (4.36-5.78); RDW 13.7 % (11.8-14.1); RDW-SD 46.5 fL; WBC 4.97 10^3/uL (4.4-10.8)
[2024-09-06 14:11] LABS: ALT 20 U/L (16-63); AST 19 U/L (15-37); Albumin 3.7 g/dL (3.4-5.0); Alkaline Phosphatase 108 U/L (46-116); Anion Gap 5.7 mmol/L (3-11); BUN 33 mg/dL (7-18); Bilirubin, Total 0.56 mg/dL (0.2-1.0); CO2 30.3 mmol/L (21.0-32.0); CREATININE 1.6 mg/dL (0.70-1.30); Calcium 9.5 mg/dL (8.5-10.1); Chloride 107 mmol/L (98-107); Estimated GFR 42.75 (mL/min/1.73m2); Glucose 93 mg/dL (74-106); Potassium 4.6 mmol/L (3.5-5.1); Sodium 143 mmol/L (136-145); TSH 4.32 uIU/mL (0.36-3.74); Total Protein 7.3 g/dL (6.4-8.2)
== END 2024-09-06 12:45 | disposition home or self-care (01) ==
PROVIDERS: PCP Family Medicine; Visit Provider Internal Medicine Hematology & Oncology
DX: E03.2 Hypothyroidism due to medicaments and other exogenous substances (principal); C34.91 Malignant neoplasm of unspecified part of right bronchus or lung
CPT/HCPCS: 36415; 80053; 84443; 85025

== ENCOUNTER 2024-09-19 09:04 | Outpatient (CLI) | payer MEDICARE, BC, SELFPAY | END 2024-09-19 09:05 | disposition home or self-care (01) | LOC: PUVA 09:04 | PROVIDERS: PCP Family Medicine; Visit Provider Dermatology | DX: L40.9 Psoriasis, unspecified (principal) | CPT/HCPCS: 96900 ==

== ENCOUNTER 2024-10-03 09:13 | Outpatient (CLI) | payer MEDICARE, BC, SELFPAY | END 2024-10-03 09:14 | disposition home or self-care (01) | LOC: PUVA 09:15 | PROVIDERS: PCP Family Medicine; Visit Provider Dermatology | DX: L40.9 Psoriasis, unspecified (principal) | CPT/HCPCS: 96900 ==

== ENCOUNTER 2024-10-17 08:58 | Outpatient (CLI) | payer MEDICARE, BC, SELFPAY | END 2024-10-17 08:59 | disposition home or self-care (01) | LOC: PUVA 08:59 | PROVIDERS: PCP Family Medicine; Visit Provider Dermatology | DX: L40.9 Psoriasis, unspecified (principal) | CPT/HCPCS: 96900 ==

== ENCOUNTER 2024-10-31 09:03 | Outpatient (CLI) | payer MEDICARE, BC, SELFPAY | END 2024-10-31 09:04 | disposition home or self-care (01) | LOC: PUVA 09:05 | PROVIDERS: PCP Family Medicine; Visit Provider Dermatology | DX: L40.9 Psoriasis, unspecified (principal) | CPT/HCPCS: 96900 ==

== ENCOUNTER 2024-11-14 15:58 | Outpatient (CLI) | payer MEDICARE, BC, SELFPAY | END 2024-11-14 15:59 | disposition home or self-care (01) | LOC: PUVA 15:59 | PROVIDERS: PCP Family Medicine; Visit Provider Dermatology | DX: L29.89 Other pruritus (principal) | CPT/HCPCS: 96900 ==

== ENCOUNTER 2024-11-28 08:01 | Outpatient (CLI) | payer MEDICARE, BC, SELFPAY | END 2024-11-28 08:02 | disposition home or self-care (01) | LOC: PUVA 08:01 | PROVIDERS: PCP Family Medicine; Visit Provider Dermatology | DX: L40.9 Psoriasis, unspecified (principal) | CPT/HCPCS: 96900 ==

== ENCOUNTER 2024-12-19 09:03 | Outpatient (CLI) | payer MEDICARE, BC, SELFPAY | END 2024-12-19 09:04 | disposition home or self-care (01) | LOC: PUVA 09:04 | PROVIDERS: PCP Family Medicine; Visit Provider Dermatology | DX: L40.9 Psoriasis, unspecified (principal) | CPT/HCPCS: 96900 ==

== ENCOUNTER 2025-01-02 07:28 | Outpatient (CLI) | payer MEDICARE, BC, SELFPAY | END 2025-01-02 07:29 | disposition home or self-care (01) | LOC: PUVA 07:28 | PROVIDERS: PCP Family Medicine; Visit Provider Dermatology | DX: L40.9 Psoriasis, unspecified (principal) | CPT/HCPCS: 96900 ==

== ENCOUNTER 2025-01-16 06:56 | Outpatient (CLI) | payer MEDICARE, BC, SELFPAY | END 2025-01-16 06:57 | disposition home or self-care (01) | LOC: PUVA 06:56 | PROVIDERS: PCP Family Medicine; Visit Provider Dermatology | DX: L29.89 Other pruritus (principal) | CPT/HCPCS: 96900 ==

== ENCOUNTER 2025-01-30 07:27 | Outpatient (CLI) | payer MEDICARE, BC, SELFPAY | END 2025-01-30 07:28 | disposition home or self-care (01) | LOC: PUVA 07:28 | PROVIDERS: PCP Family Medicine; Visit Provider Dermatology | DX: L40.9 Psoriasis, unspecified (principal) | CPT/HCPCS: 96900 ==

== ENCOUNTER 2025-02-13 06:57 | Outpatient (CLI) | payer MEDICARE, BC, SELFPAY | END 2025-02-13 06:58 | disposition home or self-care (01) | LOC: PUVA 06:57 | PROVIDERS: PCP Family Medicine; Visit Provider Dermatology | DX: L40.9 Psoriasis, unspecified (principal) | CPT/HCPCS: 96900 ==

== ENCOUNTER 2025-09-26 02:10 | Outpatient (CLI) | payer MEDICARE, BC, SELFPAY ==
[2025-09-26 10:54] LABS: Abs Immature Grans 0.02 10^3/uL (0.0-0.06); HCT 42.7 % (40.0-50.0); HGB 13.6 g/dL (13.5-17.5); Immature Grans % 0.5 %; MCH 28.9 pg (27.0-33.0); MCHC 31.9 % (32.0-36.0); MCV 91 fL (80-95); MPV 10.0 fL (8.0-11.0); Platelet Count 171 10^3/uL (130-400); RBC 4.70 10^6/uL (4.36-5.78); RDW 13.5 % (11.8-14.1); RDW-SD 45.8 fL; WBC 4.11 10^3/uL (4.4-10.8)
[2025-09-26 11:12] LABS: ALT 14 U/L (10-49); AST 21 U/L (<34); Albumin 4.1 g/dL (3.2-5.0); Alkaline Phosphatase 93 U/L (46-116); Anion Gap 7.7 mmol/L (3-11); BUN 28 mg/dL (9-23); Bilirubin, Total 0.70 mg/dL (0.2-1.2); CO2 30.3 mmol/L (20.0-31.0); Calcium 9.5 mg/dL (8.3-10.6); Chloride 106 mmol/L (98-107); Glucose 61 mg/dL (74-106); Potassium 4.6 mmol/L (3.5-5.1); Sodium 144 mmol/L (136-145); Total Protein 7.2 g/dL (5.7-8.2)
[2025-09-26 11:15] LABS: TSH 4.33 uIU/mL (0.55-4.78)
== END 2025-09-26 02:11 | disposition home or self-care (01) ==
LOC: LBO 02:10
PROVIDERS: PCP Family Medicine; Visit Provider Nurse Practitioner Family
DX: C34.91 Malignant neoplasm of unspecified part of right bronchus or lung (principal)
CPT/HCPCS: 36415; 80053; 84443; 85025